=== PATIENT | female | born 1990 | race Caucasian/White ===

== ENCOUNTER 2018-03-03 09:05 | Outpatient (CLI) | payer MEDICAID, SELFPAY ==
--- NOTE | 2018-03-03 09:16 | DI.RAD_ITS ---
SYMPTOMS/DIAGNOSIS: BACK PAIN, M54.9, SPINAL STENOSIS LUMBAR, M48.06 LUMBAR SPINE: AP, lateral and bilateral oblique views were obtained. There is a mild curvature of the spine. This may be positional. No spondylolysis or spondylolisthesis is seen. No acute fractures or subluxations are present. Small osteophytes are seen at the endplates of the lower lumbar spine. There is a vacuum disc at L 5 - S 1. The bones appear normally mineralized. Incidental note is made of an intrauterine device in the pelvis. IMPRESSION: Mild degenerative changes in the lumbar spine.
== END 2018-03-03 09:25 ==
PROVIDERS: PCP Family Medicine; Visit Provider Family Medicine
DX: M54.9 Dorsalgia, unspecified (principal); M48.061 Spinal stenosis, lumbar region without neurogenic claudication; M47.817 Spondylosis without myelopathy or radiculopathy, lumbosacral region; Z97.5 Presence of (intrauterine) contraceptive device
CPT/HCPCS: 72110

== ENCOUNTER 2019-11-26 04:02 | Outpatient (CLI) | payer MEDICAID, SELFPAY | END 2019-11-26 04:22 | PROVIDERS: PCP Family Medicine; Visit Provider Family Medicine | DX: Z53.8 Procedure and treatment not carried out for other reasons (principal) ==

== ENCOUNTER 2019-12-08 08:08 | Outpatient (CLI) | payer MEDICAID, SELFPAY | END 2019-12-08 08:28 | PROVIDERS: PCP Family Medicine; Visit Provider Family Medicine | DX: R69 Illness, unspecified (principal) ==

== ENCOUNTER 2019-12-22 18:36 | Outpatient (REF) | payer MEDICAID, SELFPAY ==
[2019-12-22 20:28] LABS: Calculated LDL 86 mg/dL (<100); Cholesterol 144 mg/dL (<200); HDL Cholesterol 32 mg/dL (40-60); Hemoglobin A1C 5.3 % (3.8-5.6); TSH (W/Ref FT4) 1.89 uIU/mL (0.36-3.74); Triglyceride 130 mg/dL (<150)
== END 2019-12-22 18:56 ==
LOC: NCHCN 18:36
PROVIDERS: PCP Family Medicine; Visit Provider Family Medicine
DX: F90.9 Attention-deficit hyperactivity disorder, unspecified type (principal); E66.9 Obesity, unspecified; Z83.3 Family history of diabetes mellitus
CPT/HCPCS: 80061; 83036; 84443

== ENCOUNTER 2020-01-29 15:09 | Outpatient (REF) | payer MEDICAID, SELFPAY ==
[2020-02-03 09:46] LABS: Codeine Negative ng/mL (Cutoff: 25); Dihydrocodeine Negative ng/mL (Cutoff: 25); Hydrocodone Negative ng/mL (Cutoff: 25); Hydromorphone Negative ng/mL (Cutoff: 25); Morphine Negative ng/mL (Cutoff: 25); Naloxone Negative ng/mL (Cutoff: 25); Norhydrocodone Negative ng/mL (Cutoff: 25); Noroxycodone Negative ng/mL (Cutoff: 25); Noroxymorphone Negative ng/mL (Cutoff: 25); Opiates Interpretation Positive.
[2020-02-03 12:47] LABS: Amphetamine Negative ng/mL (Cutoff: 25); Amphetamines Interpretation Negative.; MDA (Ecstasy Metabolite) Negative ng/mL (Cutoff: 25); MDMA (Ecstasy) Negative ng/mL (Cutoff: 25); Methamphetamine Negative ng/mL (Cutoff: 25); Phentermine Negative ng/mL (Cutoff: 25); Pseudoephedrine/Ephedrine Negative ng/mL (Cutoff: 25)
== END 2020-01-29 15:29 ==
LOC: NCHCN 15:09
PROVIDERS: PCP Family Medicine; Visit Provider Family Medicine
DX: R82.998 Other abnormal findings in urine (principal)
CPT/HCPCS: 80324; 80361

== ENCOUNTER 2020-02-19 15:17 | Outpatient (REF) | payer MEDICAID, SELFPAY ==
[2020-02-25 10:28] LABS: Amphetamine Negative ng/mL (Cutoff: 25); Amphetamines Interpretation Negative.; MDA (Ecstasy Metabolite) Negative ng/mL (Cutoff: 25); MDMA (Ecstasy) Negative ng/mL (Cutoff: 25); Methamphetamine Negative ng/mL (Cutoff: 25); Phentermine Negative ng/mL (Cutoff: 25); Pseudoephedrine/Ephedrine Negative ng/mL (Cutoff: 25)
[2020-02-25 11:32] LABS: Buprenorphine 9.2 ng/mL; Norbuprenorphine Negative
[2020-02-26 17:31] LABS: EDDP-by GC-MS 290 ng/mL; Methadone Interpretation Positive.; Methadone-by GC-MS 52040 ng/mL
== END 2020-02-19 15:37 ==
LOC: NCHCN 15:17
PROVIDERS: PCP Family Medicine; Visit Provider Family Medicine
DX: R82.998 Other abnormal findings in urine (principal)
CPT/HCPCS: 80307; 80324; 80358

== ENCOUNTER 2020-03-01 16:18 | Outpatient (REF) | payer MEDICAID, SELFPAY ==
[2020-03-01 20:08] LABS: Anion Gap 7.6 mmol/L (3-11); BUN 17 mg/dL (7-18); C-Reactive Protein 0.56 mg/dL (0.0-0.3); CO2 26.4 mmol/L (21.0-32.0); CREATININE 0.87 mg/dL (0.55-1.02); Calcium 8.5 mg/dL (8.5-10.1); Chloride 105 mmol/L (98-107); Glucose 113 mg/dL (74-106); Potassium 3.9 mmol/L (3.5-5.1); Sodium 139 mmol/L (136-145); Uric Acid 4.8 mg/dL (2.6-6.0)
[2020-03-01 20:10] LABS: HCT 43.7 % (36.0-46.0); MCV 90.5 fL (80-95); MPV 10.6 fL (8.0-11.0); Platelet Count 205 10^3/uL (130-400); RBC 4.83 10^6/uL (3.93-5.22); RDW 12.6 % (11.7-14.6); WBC 7.07 10^3/uL (4.4-10.8)
[2020-03-01 21:14] LABS: ESR 15 mm/hr (0-20)
[2020-03-02 17:20] LABS: Rheumatoid Factor <8.6 IU/mL (<12.0)
[2020-03-03 10:19] LABS: Lyme Ab w Rflx to Lyme Confirm Negative (Negative)
[2020-03-04 00:36] LABS: Anaplasma phagocytophilum Negative (Negative); B. miyamotoi PCR Negative (Negative); Babesia divergens/MO-1 Negative (Negative); Babesia duncani Negative (Negative); Babesia microti Negative (Negative); Ehrlichia chaffeensis Negative (Negative); Ehrlichia ewingii/canis Negative (Negative); Ehrlichia muris eauclairensis Negative (Negative)
== END 2020-03-01 16:38 ==
LOC: NCHCN 16:18
PROVIDERS: PCP Family Medicine; Visit Provider Family Medicine
DX: M25.48 Effusion, other site (principal)
CPT/HCPCS: 80048; 85027; 85652; 87798; 84550; 86140; 86431; 86618

== ENCOUNTER 2020-06-30 11:23 | Outpatient (REF) | payer MEDICAID, SELFPAY ==
[2020-07-05 12:38] LABS: Amphetamine Negative ng/mL (Cutoff: 25); Amphetamines Interpretation Positive.; MDA (Ecstasy Metabolite) Negative ng/mL (Cutoff: 25); MDMA (Ecstasy) Negative ng/mL (Cutoff: 25); Methamphetamine 3850 ng/mL (Cutoff: 25); Phentermine Negative ng/mL (Cutoff: 25); Pseudoephedrine/Ephedrine Negative ng/mL (Cutoff: 25)
== END 2020-06-30 11:43 ==
LOC: NCHCN 11:23
PROVIDERS: PCP Family Medicine; Visit Provider Family Medicine
DX: R82.998 Other abnormal findings in urine (principal)
CPT/HCPCS: 80324

== ENCOUNTER 2020-08-02 16:05 | Outpatient (REF) | payer MEDICAID, SELFPAY ==
[2020-08-05 11:21] LABS: Amphetamine Negative ng/mL (Cutoff: 25); Amphetamines Interpretation Negative.; MDA (Ecstasy Metabolite) Negative ng/mL (Cutoff: 25); MDMA (Ecstasy) Negative ng/mL (Cutoff: 25); Methamphetamine Negative ng/mL (Cutoff: 25); Phentermine Negative ng/mL (Cutoff: 25); Pseudoephedrine/Ephedrine Negative ng/mL (Cutoff: 25)
[2020-08-06 05:10] LABS: EDDP-by GC-MS 129 ng/mL; Methadone Interpretation Positive.
[2020-08-07 14:39] LABS: Methylphenidate >2000 ng/mL; Ritalinic Acid 740 ng/mL
== END 2020-08-02 16:06 | disposition home or self-care (01) ==
LOC: NCHCN 16:05
PROVIDERS: PCP Family Medicine; Visit Provider Family Medicine
DX: Z51.81 Encounter for therapeutic drug level monitoring (principal)
CPT/HCPCS: 80324; 80360; 80358

== ENCOUNTER 2021-01-28 09:38 | Emergency (ER) | payer MEDICAID, SELFPAY ==
--- NOTE | 2021-01-28 09:40 | ED.GENADUL_ITS ---
Discharge Plan Disposition Patient Disposition: HOME Condition: Stable Discharge Details Clinical Impression: Cellulitis of left arm Primary Care Provider: Tiffany Houser V ED Provider: Ramona Saab Home Meds and New Rx's Prescriptions: New cephalexin 500 mg tablet 500 mg PO QID Qty: 28 RF: 0 Continued Mirena 1 EACH intrauterine device 1 insert intrauterine DIRECTED RF: 0 acetaminophen [Mapap Extra Strength] 500 MG tablet 1,000 mg PO PRN PRNRF: 0 ibuprofen [Ibuprofen IB] 200 MG tablet 800 mg PO PRN PRNRF: 0 Discharge Instructions Instructions: Cellulitis (ED) Additional Instructions: take antibiotics as prescribed even if you feel better drink 6-8 glasses of water daily to stay well hydrated the area may worsen in the first 1-2 days before improving. if it's not improving after that, you should get re-evaluated. return sooner if unable to keep meds/ fluids down from vomiting, fever not controlled with acetaminophen and or ibuprofen. Referrals: Tiffany Houser MD [Primary Care Provider] - Discharge Data Discharge Date/Time-TO BE ENTERED AT DEPARTURE: 01/28/21 10:41 Medical Decision Making <Ramona Saab NP - Last Filed: 01/28/21 10:11> presents with rash on upper left arm, most consistent with cellulitis, no drainage abscess noted. she has no systemic symptoms of infection. hemodynamically stable, eating and drinking well. states area has increased in size over past 2 days. will treat with keflex, she has no history of MRSA. advised to return sooner for new or worsening symptoms tetanus 07/2011. will update on this visit. area marked. Medical Records Medical records reviewed: Yes I reviewed the patient's medical records. <Quynh Blunt DO - Last Filed: 01/28/21 16:24> Patient not seen or evaluated by me. I was available for consultation in the emergency department if needed. HPI <Ramona Saab NP - Last Filed: 01/28/21 10:11> General Mode of arrival: ambulatory . Date/Time Provider Initiated Documentation: 01/28/21 09:39 . Limitations to Documentation: no limitations . Information obtained by: patient . HPI Narrative: started 2 days ago with left upper extremity redness worsening, no fever or chills. 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 no other symptoms. Related Data Home Medications Medication Instructions Recorded Confirmed Mirena 1 insert INTRAUTERINE DIRECTED 11/18/14 01/28/21 acetaminophen [Mapap Extra 1,000 mg PO PRN PRN 09/13/15 01/28/21 Strength] ibuprofen [Ibuprofen IB] 800 mg PO PRN PRN 01/17/16 01/28/21 cephalexin 500 mg PO QID #28 tab 01/28/21 Previous Rx's Medication Instructions Recorded cephalexin 500 mg PO QID #28 tab 01/28/21 Allergies Allergy/AdvReac Type Severity Reaction Status Date / Time No Known Allergies Allergy Unverified 01/28/21 09:49 General FRANCISCO: 4 Review of Systems <Ramona Saab NP - Last Filed: 01/28/21 10:11> Constitutional Constitutional: Denies fever(s) Integumentary/Breasts Skin/Breast: Denies lesions and Reports rash (upper left arm, posterior) PFSH <Ramona Saab NP - Last Filed: 01/28/21 10:11> Medical History (Updated 01/28/21 @ 10:09 by Ramona Saab NP) Asthma Migraine Surgical History (Updated 04/02/18 @ 14:34 by [facility]) section (04/01/10) failed induction for post dates. No dilation. Velamentouse cord insertion noted on path report. No distress. Male named Alli 7lb 14oz. Family History Father Essential hypertension Diabetes [id number] Ivon's chorea Social History Smoking/Tobacco Use Status: Current every day Tobacco Type: cigarettes Smoking risk assessment performed?: Yes Alcohol Intake: never Drug use: Never Substance use type: does not use Do you feel safe at home: Yes Do you feel safe in your relationship?: Yes Exam <Ramona Saab NP - Last Filed: 01/28/21 10:11> Const General: cooperative, comfortable and no acute distress Orientation: alert, awake and oriented x3 [facility] Head: normal to inspection and normocephalic Mouth: oral mucosae normal Skin Rashes: rashes noted (posterior upper left arm extends distally to forearm but not as erythematou) and other (no obvious abscess or fluctant area, no lesions noted) Neuro General: patient alert, patient awake and patient oriented x3
[2021-01-28 09:44] VITALS: BP 151/84; PULSE 96; TEMP 36.4; O2SAT 99
== END 2021-01-28 10:41 | disposition home or self-care (01) ==
PROVIDERS: Emergency Provider Nurse Practitioner Acute Care; PCP Family Medicine
DX: L03.114 Cellulitis of left upper limb (principal)
CPT/HCPCS: 90471; 99284; 99283

== ENCOUNTER 2021-02-21 05:06 | Outpatient (CLI) | payer MEDICAID, SELFPAY ==
--- NOTE | 2021-02-21 08:15 | RT.EKG_ITS ---
APPROVED REPORT Exam: Resting ECG Reason for Exam: high risk med Patient Location: O HR:62 bpm ECG Measurements Heart Rate 62 AXIS ND 142 P 66 QRSd 85 QRS 36 QT 414 T 44 QTc 422 Conclusion Sinus rhythm...normal P axis, V-rate 60- 99 Normal Electrocardiogram
== END 2021-02-21 05:07 | disposition home or self-care (01) ==
LOC: RT 05:06
PROVIDERS: PCP Family Medicine; Visit Provider Family Medicine
DX: Z79.899 Other long term (current) drug therapy (principal)
CPT/HCPCS: 93005; 93010

== ENCOUNTER 2021-04-18 02:36 | Emergency (ER) | payer MEDICAID, SELFPAY ==
[2021-04-18 02:43] VITALS: BP 157/87; PULSE 128; RESP 24; TEMP 37.4; O2SAT 98
[2021-04-18] MEDS: Normal Saline 1,000 ML 1000 ML IV ×2 (03:00→03:28)
--- NOTE | 2021-04-18 03:01 | ED.GENADUL_ITS ---
Discharge Plan Disposition Patient Disposition: HOME Condition: Improving Discharge Details Clinical Impression: Dehydration, Acute hypokalemia, Polysubstance abuse Primary Care Provider: Tiffany Houser V ED Provider: Eyal Burden Home Meds and New Rx's Prescriptions: Continued Mirena 1 EACH intrauterine device 1 insert intrauterine DIRECTED RF: 0 acetaminophen [Mapap Extra Strength] 500 MG tablet 1,000 mg PO PRN PRNRF: 0 ibuprofen [Ibuprofen IB] 200 MG tablet 800 mg PO PRN PRNRF: 0 gabapentin 300 mg capsule 300 mg PO TID RF: 0 guanfacine 1 mg tablet 1 mg PO QAM RF: 0 methadone 10 mg/mL Concentrate 15 mg PO DAILY RF: 0 Discharge Instructions Instructions: Dehydration (ED), Hypokalemia (ED) Additional Instructions: Your potassium was low today, you were given potassium supplementation in the ER, and you may increase potassium-containing foods in the diet such as strawberries, bananas, leafy greens, tree nuts such as almonds and cashews. Follow-up with the methadone clinic today. Avoid illicit or street drugs. Medical Decision Making 30-year-old female polysubstance user presents with headache and vomiting. She has missed 2 doses of her methadone but has been using some illicitly obtained fentanyl. She has not been injured or fallen. She is not had a febrile illness. She arrives to ER dehydrated, tachycardic, and in some mild discomfort. Differential diagnosis includes migraine headache, polysubstance abuse, dehydration, electrolyte abnormality, withdrawal type symptoms. Patient had IV access established, given fluids, antiemetic, Toradol. Patient's laboratories show a white blood cell count of 2.8, hematocrit 40, platelets 113. Sodium 143, potassium 2.8, chloride 107, bicarb 25, BUN 12, creatinine 1.1. U preg negative. Patient's potassium supplemented in the emergency department. HPI General Mode of arrival: ambulatory . Date/Time Provider Initiated Documentation: 04/18/21 02:37 . Limitations to Documentation: no limitations . Information obtained by: patient and family . History of Present Illness 30 year old F presents to the emergency department with the chief complaint of Headache and vomiting, recent drug use, described as moderate, Quality is described as dull, and is localized to the head. Patient reports no radiation. Patient started experiencing this hour(s) and it has been constant. No relieving factors improve symptom(s), No exacerbating factors reported . Patient notes headaches, loss of appetite, nausea/vomiting and weakness; denies chest pain, shortness of breath and syncope. Patient did receive the following treatments prior to arrival, none Related Data Home Medications Medication Instructions Recorded Confirmed Mirena 1 insert INTRAUTERINE DIRECTED 11/18/14 04/18/21 acetaminophen [Mapap Extra 1,000 mg PO PRN PRN 09/13/15 04/18/21 Strength] ibuprofen [Ibuprofen IB] 800 mg PO PRN PRN 01/17/16 04/18/21 gabapentin 300 mg PO TID 04/18/21 04/18/21 guanfacine 1 mg PO QAM 04/18/21 04/18/21 methadone 15 mg PO DAILY 04/18/21 04/18/21 Allergies Allergy/AdvReac Type Severity Reaction Status Date / Time No Known Allergies Allergy Unverified 04/18/21 02:48 General Stated Complaint: Headache FRANCISCO: 3 Review of Systems Narrative: Has missed 2 days of methadone. Used fentanyl 20 hours ago. No fall or injury. No loss of consciousness. 6 systems reviewed and otherwise negative [facility] Medical History Asthma Drug abuse Heroin abuse Migraine Surgical History (Updated 04/02/18 @ 14:34 by [facility] [place]) section (04/01/10) failed induction for post dates. No dilation. Velamentouse cord insertion noted on path report. No distress. Male infant named Alli 7lb 14oz. Family History Father Essential hypertension Diabetes [id number] Ivon's chorea Social History Smoking/Tobacco Use Status: Current every day Tobacco Type: cigarettes Smoking risk assessment performed?: Yes Alcohol Intake: never Drug use: Daily Substance use type: heroin, painkillers and IV drugs Details: states she used fentanyl 20 hours ago; is trying to get dose adjusted at [facility] Do you feel safe at home: Yes Do you feel safe in your relationship?: Yes Exam Narrative Exam Narrative: GEN: awake, alert, interactive. HEAD: Normocephalic, atraumatic ENT: Mucous membranes dry, oropharynx unremarkable, External ear exam unremarkable EYES: PERRL, EOMI NECK: Full ROM, no LIZANDRO, no menigismus CHEST/RESP: Nontender, clear to auscultation bilateral, no wheeze/rhonchi/rales CARDIOVASCULAR: Regular and tachycardic, no murmur, rub eddie. 2+ Rad pulse bilateral ABDOMEN: Soft, nontender, no mass. +Bowel sounds EXT: Full ROM, no edema, numerous track melendez bilateral upper extremity Neuro: Grossly normal neurologic exam, conversant, interactive. Psych: Speech fluent, thoughts congruent, affect normal Course Vital Signs Vital signs: Vital Signs Temperature 37.4 C 04/18/21 02:43 Pulse 128 H 04/18/21 02:43 Respiratory Rate 24 04/18/21 02:43 Blood Pressure 157/87 H 04/18/21 02:43 Pulse Oximetry 98 04/18/21 02:43 Temperature 37.4 C 04/18/21 02:43 Temperature Source Skin 04/18/21 02:43 Pulse 128 H 04/18/21 02:43 Respiratory Rate 24 04/18/21 02:43 Respiratory Effort 04/18/21 02:48 Blood Pressure 157/87 H 04/18/21 02:43 Pulse Oximetry 98 04/18/21 02:43 Pain Level 9 04/18/21 02:48
[2021-04-18] MEDS: Ondansetron 4 MG/2 ML VIAL IVP (03:27)
[2021-04-18] MEDS: Ketorolac 30 MG/ML VIAL IVP (03:28)
[2021-04-18 03:29] LABS: HCT 40.3 % (36.0-46.0); HGB 13.2 g/dL (11.2-15.7); MCH 27.7 pg (27.0-33.0); MCHC 32.8 % (32.0-36.0); MCV 84.5 fL (80-95); MPV 10.2 fL (8.0-11.0); Platelet Count 113 10^3/uL (130-400); RBC 4.77 10^6/uL (3.93-5.22); RDW-SD 43.3 fL; WBC 2.84 10^3/uL (4.4-10.8)
[2021-04-18 03:55] LABS: BUN 12 mg/dL (7-18); CREATININE 1.1 mg/dL (0.55-1.02); Calcium 8.3 mg/dL (8.5-10.1); Chloride 107 mmol/L (98-107); Estimated GFR 57.56 (mL/min/1.73m2); Glucose 94 mg/dL (74-106); Sodium 143 mmol/L (136-145)
[2021-04-18 03:56] LABS: Potassium 2.8 mmol/L (3.5-5.1)
[2021-04-18] MEDS: POTASSIUM CHLORIDE 20 MEQ/100 ML BAG 40 MEQ IVPB (04:10)
[2021-04-18 05:46] VITALS: PULSE 122; RESP 20; O2SAT 93
[2021-04-18] MEDS: Potassium Chloride Liquid 20 MEQ PKT PO (06:09)
[2021-04-18 08:01] VITALS: BP 121/88; PULSE 122; RESP 20; TEMP 37.3; O2SAT 96
== END 2021-04-18 17:20 | disposition home or self-care (01) ==
PROVIDERS: Emergency Provider Emergency Medicine; PCP Family Medicine
DX: E86.0 Dehydration (principal); E87.6 Hypokalemia; F11.20 Opioid dependence, uncomplicated; R51.9 Headache, unspecified
CPT/HCPCS: 80048; 81025; 85027; 96361; 96365; 96366; 96367; 96375; 99284; J1885; J2405; J3480

== ENCOUNTER → 2021-11-14 01:56 | Outpatient (CLI) | payer MEDICAID, SELFPAY | PROVIDERS: PCP Family Medicine; Visit Provider Family Medicine ==

== ENCOUNTER 2022-05-22 10:10 | Outpatient (CLI) | payer MEDICAID, SELFPAY ==
--- NOTE | 2022-05-22 10:15 | RT.EKG_ITS ---
APPROVED REPORT Exam: Resting ECG Reason for Exam: Review Rn Medication Use Patient Location: O HR:69 bpm ECG Measurements Heart Rate 69 AXIS ND 151 P 49 QRSd 131 QRS 70 QT 403 T 41 QTc 432 Conclusion Sinus rhythm...normal P axis, V-rate 50- 99 Right bundle branch block...QRSd>120, terminal axis(90,270)
== END 2022-05-22 10:11 | disposition home or self-care (01) ==
PROVIDERS: PCP Family Medicine; Visit Provider Family Medicine
DX: Z51.81 Encounter for therapeutic drug level monitoring (principal); R94.31 Abnormal electrocardiogram [ECG] [EKG]; I45.19 Other right bundle-branch block
CPT/HCPCS: 93005; 93010

== ENCOUNTER 2022-09-21 01:03 | Emergency (ER) | payer MEDICAID, SELFPAY ==
[2022-09-21 01:13] VITALS: BP 142/88; PULSE 110; RESP 16; TEMP 36.9; O2SAT 98
--- NOTE | 2022-09-21 01:25 | ED.GENADUL_ITS ---
Discharge Plan Disposition Patient Disposition: Home Discharge Details Clinical Impression: Abscess Primary Care Provider: Tiffany Houser V ED Provider: Royer Peterson Home Meds and New Rx's Prescriptions: New sulfamethoxazole-trimethoprim [Bactrim DS] 800-160 mg tablet 1 tab PO BID Qty: 20 0RF No Action Mirena 1 EACH intrauterine device 1 insert intrauterine DIRECTED Patient Comments: pt states she has had for a year and half 04/20/16 acetaminophen [Mapap Extra Strength] 500 MG tablet 1,000 mg PO PRN PRN ibuprofen [Ibuprofen IB] 200 MG tablet 800 mg PO PRN PRN gabapentin 300 mg capsule 300 mg PO TID guanfacine 1 mg tablet 1 mg PO QAM Patient Comments: TAKE 1 TABLET BY MOUTH AT BEDTIME methadone 10 mg/mL Concentrate 170 mg PO DAILY Discharge Instructions Instructions: Abscess (ED) Additional Instructions: At this time you have small pustular abscesses that are likely secondary to MRSA. Please take the antibiotic as directed. Please avoid scratching and make sure the under aspect of your nails are always clean. Please use antibacterial soap and wash for your extremities. Please avoid any needles or injections. Your prescription has been sent to your pharmacy on file. If you notice any worsening of your symptoms, or any new symptoms such as vomiting, diarrhea, fever, chills, shortness of breath, chest pain, numbness, weakness, or fainting , please return immediately to the emergency department for reevaluation. Please follow up with your primary care provider as soon as possible for reassessment and reevaluation. As always, it was a pleasure participating in your medical care today. Referrals: Tiffany Houser MD [Primary Care Provider] - Medical Decision Making This is a pleasant 32-year-old female with a past medical history of illicit drug use, family history of MRSA, who presents today for skin lesions. Patient states she does use actively, and over the last few days/weeks she has noticed small lesions that have developed on her hands in locations that she has previously used, as well as on her face where she scratches that have started with a small pustule, and scab over. She denies any fever or chills. Both her significant other, and her family member who live at her house have MRSA. She denies any other complaints at this time. She denies any vaginal lesions. She denies any lesions on the palms of her hands or feet. She denies any oral lesions. No other complaints. No other modifying factors. Physical exam demonstrates a well-appearing female with a few small pustular lesions on her hand over the dorsum aspect, and a few scabbed over lesions on her nose. No evidence of significant necrosis. No current clinical evidence of staph scalded skin syndrome, erythema multiforme, erythema migrans, toxic epidermal necrolysis, Britt-Baldev syndrome, Kawasaki-like rash, meningococcemia, pemphigus vulgaris, or necrotizing fasciitis. Symptoms consistent with mild folliculitis versus mild infectious pustular lesions most likely secondary to MRSA. We we will culture these areas, treat empirically with Bactrim, with close follow-up in an outpatient basis. Discussed red flags for which to return. Discussed the importance of antibacterial wash. Discussed the importance of avoidance of itching/scratching. I have extensively reviewed the treatment plan and discharge instructions with the patient. I have addressed all patient concerns at this time. The patient was made aware of what symptoms to monitor for that would warrant a return to the emergency department. Discussed the plan with the patient, they demonstrate verbal understanding and agreement with our assessment and plan at this time. The documentation in this chart was dictated using [employer] dictation software. Please excuse any dictation errors. HPI General Date/Time Provider Initiated Documentation: 09/21/22 01:14 . HPI Narrative: This is a pleasant 32-year-old female with a past medical history of illicit drug use, family history of MRSA, who presents today for skin lesions. Patient states she does use actively, and over the last few days/weeks she has noticed small lesions that have developed on her hands in locations that she has previously used, as well as on her face where she scratches that have started with a small pustule, and scab over. She denies any fever or chills. Both her significant other, and her family member who live at her house have MRSA. She denies any other complaints at this time. She denies any vaginal lesions. She denies any lesions on the palms of her hands or feet. She denies any oral lesions. No other complaints. No other modifying factors. Related Data Home Medications Medication Instructions Recorded Confirmed levonorgestrel 21 mcg/24 hours (8 1 insert intrauterine DIRECTED 11/18/14 09/21/22 yrs) 52 mg intrauterine device (Mirena) acetaminophen 500 mg tablet (Mapap 1,000 mg PO PRN PRN 09/13/15 09/21/22 Extra Strength) ibuprofen 200 mg tablet (Ibuprofen 800 mg PO PRN PRN 01/17/16 09/21/22 IB) gabapentin 300 mg capsule 300 mg PO TID 04/18/21 09/21/22 guanfacine 1 mg tablet 1 mg PO QAM 04/18/21 09/21/22 methadone 10 mg/mL oral concentrate 170 mg PO DAILY 04/18/21 09/21/22 sulfamethoxazole 800 1 tab PO BID #20 tabs 09/21/22 mg-trimethoprim 160 mg tablet (Bactrim DS) Previous Rx's Medication Instructions Recorded sulfamethoxazole 800 1 tab PO BID #20 tabs 09/21/22 mg-trimethoprim 160 mg tablet (Bactrim DS) Allergies Allergy/AdvReac Type Severity Reaction Status Date / Time No Known Allergies Allergy Unverified 09/21/22 01:22 General Stated Complaint: Cellulitis FRANCISCO: 4 Review of Systems All systems reviewed & are unremarkable except as noted in HPI and below PFSH All Active Problems (Updated 09/21/22 @ 01:31 by Royer Peterson DO) Previous delivery, delivered (Acute) Cellulitis of left arm (Acute) Dehydration (Acute) Acute hypokalemia (Acute) Polysubstance abuse (Acute) Abscess (Acute) Medical History Asthma Drug abuse Heroin abuse Migraine Surgical History section (04/01/10) failed induction for post dates. No dilation. Velamentouse cord insertion not ed on path report. No distress. Male infant named Alli 7lb 14oz. Family History Father Essential hypertension Diabetes Fepmas-sf-nco [place]'s chorea Social History Smoking/Tobacco Use Status: Current every day Tobacco Type: cigarettes Smoking risk assessment performed?: Yes Alcohol Intake: never Drug use: Daily Substance use type: heroin, painkillers and IV drugs Details: states she used fentanyl 20 hours ago; is trying to get dose adjusted at [facility] Do you feel safe at home: Yes Do you feel safe in your relationship?: Yes Exam Narrative Exam Narrative: 1.Const: Well-nourished, Well-developed, appearing stated age 2.Eyes: PERRL, no conjunctival injection, and symmetrical lids. 3.ENT: Atraumatic external nose and ears. Moist MM. Neck: Symmetric, trachea midline, No thyromegaly. 4.CVS: +S1/S2, No murmurs or gallops. Peripheral pulses 2+ and equal in all extremities. Brisk capillary refill in all extremities. 5.RESP: Unlabored respiratory effort. Clear to auscultation bilaterally. No wheezes rales or rhonchi 6.GI: Soft, Nontender/Nondistended, No hepatosplenomegaly. No guarding or rebound. 7.MSK: Normocephalic/Atraumatic, Extremities w/o deformity or ttp No cyanosis or clubbing, Normal movement of all extremities 8.Skin: Warm, Dry. Patient does demonstrate evidence of a few scabbed over lesions on her face, as well as the dorsal aspect of her hands. She also does demonstrate evidence of a few pustular lesions on the dorsum of her hands. No significant redness surrounding it to suggest significant cellulitis. Patient states that she is not currently using the sites to inject, 9.Neuro: skin drier II-XII grossly intact. Sensation grossly intact, no focal neurologic deficits. 10.Psych: (AAO) x3. Appropriate mood and affect Course Vital Signs Vital signs: Vital Signs Temperature 36.9 C 09/21/22 01:13 Pulse 110 H 09/21/22 01:13 Respiratory Rate 16 09/21/22 01:13 Blood Pressure 142/88 H 09/21/22 01:13 Pulse Oximetry 98 09/21/22 01:13 Temperature 36.9 C 09/21/22 01:13 Temperature Source Oral 09/21/22 01:13 Pulse 110 H 09/21/22 01:13 Respiratory Rate 16 09/21/22 01:13 Respiratory Effort Normal 09/21/22 01:13 Blood Pressure 142/88 H 09/21/22 01:13 Pulse Oximetry 98 09/21/22 01:13 Oxygen Delivery Method Room Air 09/21/22 01:13 Oxygen Flow Rate 0 09/21/22 01:13 Pain Level 5 09/21/22 01:13
[2022-09-21] MEDS: Sulfameth/Trimeth DS, 2 TABS/BTL 1 TAB PO (01:33)
== END 2022-09-21 01:36 | disposition home or self-care (01) ==
PROVIDERS: Emergency Provider Student in an Organized Health Care Education/Training Program; PCP Family Medicine
DX: L98.8 Other specified disorders of the skin and subcutaneous tissue (principal); F11.20 Opioid dependence, uncomplicated; F17.210 Nicotine dependence, cigarettes, uncomplicated
CPT/HCPCS: 99283

== ENCOUNTER 2023-01-03 08:27 | Emergency (ER) | payer MEDICAID, SELFPAY ==
[2023-01-03] VITALS (95 sets, daily range): BP systolic 118–159; BP diastolic 66–91; PULSE 63–83; RESP 9–58; TEMP 36.6; O2SAT 97–98
--- OUTSIDE RECORDS SUMMARY | 2023-01-03 08:31 | XMS_ITS | Continuity of Care Document ---
Author Name Unknown Organization [facility] Address Unknown Care Team Providers Care Night Manager Name Role Phone No PCP, No PCP Primary Care Physician Unavailab le Encounter Date(s): 09/29/21 - 09/29/21 [facility] [address], [place] [address] Encounter Diagnosis Compression fracture of L1 vertebra(Discharge Diagnosis) - 09/29/21 Discharge Disposition: Home or Self Care Attending Physician: Jose Medellin MD Admitting Physician: Jose Medellin MD Allergies, Adverse Reactions, Alerts No Known Medication Allergies Assessment and Plan Diagnostic Tests Pending * Urinalysis Reflex Microscopic, Culture if 09/29/21 Medications ketorolac 10 mg oral tablet 10 mg = 1 tab(s), Oral, q6hr, PRN PRN: for pain, X 5 day(s), # 20 tab(s), 0 Refill(s), Pharmacy: [facility] Pharmacy, 177, cm, 09/29/21 7:32:00 EDT, Height/Length Dosing, 81, kg, 09/29/21 7:32:00 EDT, Weight Dosing Start Date: 09/29/21 Stop Date: 10/04/21 Status: Ordered lidocaine topical 5% transdermal patch 1 patch(es), Topical, Daily, remove patches after 12 hours, # 5 patch(es), 0 Refill(s), Pharmacy: [facility] Pharmacy, 177, cm, Height/Length Dosing, 09/29/21 7:32:00 EDT, 81, kg, 09/29/21 7:32:00 EDT, Weight Dosing Start Date: 09/29/21 Status: Ordered oxyCODONE 5 mg oral tablet 5 mg = 1 tab(s), Oral, q6hr, PRN PRN: for pain, X 3 day(s), # 12 tab(s), 0 Refill(s), Pharmacy: [facility] Pharmacy, 177, cm, 09/29/21 7:32:00 EDT, Height/Length Dosing, 81, kg, 09/29/21 7:32:00 EDT, Weight Dosing Start Date: 09/29/21 Stop Date: 10/02/21 Status: Ordered Mental Status 09/29/21 Orientation Assessment Oriented x 4 Results Laboratory List Name Date .Estimated Glomerular Filtration Rate Auto Differential 09/29/21 CBC Auto Diff reflex Manual Diff 09/29/21 Comprehensive Metabolic Panel 09/29/21 Most recent to oldest [Reference Range]: 1 AGAP 10 *NA* (09/29/21 8:17 AM) A/G Ratio 0.9 *NA* (09/29/21 8:17 AM) BUN/Creat Ratio 17 *NA* (09/29/21 8:17 AM) RBC [4.00-5.20 x10(6)/mcL] 4.69 x10(6)/m cL (09/29/21 8:17 AM) RDW [11.5-14.5 %] 13.2 % (09/29/21 8:17 AM) Sodium Level [136-145 mmol/L] 137 mmol/L (09/29/21 8:17 AM) Total Protein [6.4-8.2 gm/dL] 7.3 gm/dL (09/29/21 8:17 AM) AST [15-37 IU/L] 11 IU/L *LOW* (09/29/21 8:17 AM) Bili Total [0.20-1.00 mg/dL] 0.32 mg/dL (09/29/21 8:17 AM) CO2 [21-32 mmol/L] 26 mmol/L (09/29/21 8:17 AM) Albumin Level [3.4-5.0 gm/dL] 3.5 gm/dL (09/29/21 8:17 AM) Alk Phos [48-129 unit/L] 50 unit/L (09/29/21 8:17 AM) ALT [13-61 IU/L] 19 IU/L (09/29/21 8:17 AM) Hct [36.0-46.0 %] 42.8 % (09/29/21 8:17 AM) Hgb [12.0-15.0 gm/dL] 14.3 gm/dL (09/29/21 8: AM) MCH [26.0-34.0 pg] 30.5 pg (09/29/21 AM) MCHC [31.0-37.0 gm/dL] 33.4 gm/dL (09/29/21 8: AM) MCV [80-100 fL] 91 fL (09/29/21 AM) MPV [9.2-12.7 fL] 9.7 fL (09/29/21 AM) Glucose Level [74-106 mg/dL] 110 mg/dL *HI* (09/29/21 AM) Platelet [150-350 x10(3)/mcL] 277 x10(3) /mcL (09/29/21 AM) Potassium Level [3.5-5.1 mmol/L] 3.6 mmo l/L (09/29/21 AM) WBC [4.5-11.0 x10(3)/mcL] 9.9 x10(3)/mcL (09/29/21: AM) BUN [7-18 mg/dL] 12 mg/dL (09/29/21 AM) Calcium Level [8.5-10.1 mg/dL] 8.8 mg/dL (09/29/21: AM) Chloride [98-107 mmol/L] 105 mmol/L (09/29/21: AM) eGFR AA >60 mL/min/1.73 m2 *NA* (09/29/21: AM) eGFR HAROLDO >60 mL/min/1.73 m2 *NA* (09/29/21: AM) Neutrophil Absolute [1.50-7.80 x10(3)/mc L] 6.57 x10(3)/mcL (09/29/21: AM) Lymphocyte Absolute [1.10-4.80 x10(3)/mc L] 2.29 x10(3)/mcL (09/29/21 8: AM) Monocyte Absolute 0.69 x10(3)/mcL *NA* (4/15/22 8:17 AM) Eosinophil Absolute 0.27 x10(3)/mcL *NA* (09/29/21 8:17 AM) Basophil Absolute 0.05 x10(3)/mcL *NA* (09/29/21 8:17 AM) Imm Gran Absolute 0.02 /mcL *NA* (09/29/21 8:17 AM) NRBC % [0.0-0.2 %] 0.0 % (09/29/21 8:17 AM) Osmol Calculated 274 mOsm/kg *NA* (09/29/21 8:17 AM) Eosinophil Auto [1.0-4.0 %] 2.7 % (09/29/21 8:17 AM) Immature Granulocyte Auto 0 % *NA* (09/29/21 8:17 AM) Lymphocyte Auto [24.0-44.0 %] 23.2 % *LOW* (09/29/21 8:17 AM) Monocyte Auto [2.0-11.0 %] 7.0 % (09/29/21 8:17 AM) Neutrophil Auto [31.0-76.0 %] 66.4 % (09/29/21 8:17 AM) Basophil Auto [0.0-2.0 %] 0.5 % (09/29/21 8:17 AM) Creatinine [0.6-1.3 mg/dL] 0.7 mg/dL (09/29/21 8:17 AM) Radiology Reports * Exam Date Time Procedure Performing Provider Status 09/29/21 9:[address] Spine Lumbar w/o IV [place] [address] PROCEDURE: [place] [address] CLINICAL INDICATION: eval lumbar fracture COMPARISON: None. TECHNIQUE: Standard CT of the Lumbar Spine was performed without contrast. Dose reduction techniques including automated exposure control were utilized. DLP DOSE: 799.79 (mGy.cm) FINDINGS: There is a fracture involving the L1 vertebral body with approximately 6 mm of retropulsion along the superior margin. This does cause moderate central canal narrowing. The central canal measures approximately 8 mm in AP diameter at this level. There is approximately 50% vertebral body height loss. There are a few osseous fragments along the anterior vertebral body at this level. This is age indeterminate. There is vacuum disc phenomenon involving the T12/L1 disc space. The remaining disc spaces are maintained. The remaining sagittal alignment is unremarkable. 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 No large disc protrusion, neuroforaminal narrowing or central canal narrowing in the lower lumbar spine. Mild facet arthropathy in the lower lumbar spine. IMPRESSION: Compression fracture of the L1 vertebral body with approximately 6 mm of retropulsion along the superior margin causing moderate central canal narrowing. No fracture is age indeterminate. Electronically Signed by: Fito Gamboa DO 09/29/2021 9:45 AM Vital Signs Most recent to oldest [Reference Range]: 1 2 Temperature Oral [35.8-37.3 DegC] 36.6 D egC (09/29/21 10:56 AM) 36.7 DegC (09/29/21 7:32 AM) Peripheral Pulse Rate [60-100 bpm] 89 bp m (09/29/21 10:56 AM) 96 bpm (09/29/21 7:32 AM) Respiratory Rate [14-20 br/min] 20 br/mi n (09/29/21 10:56 AM) 22 br/min *HI* (09/29/21 7:32 AM) Blood Pressure 152/104mmHg (09/29/21 10:56 AM) 157/113mmHg (09/29/21 7:32 AM) Social History Social History Type Response Sex Female Hospital Discharge Instructions Patient Education 09/29/2021 11:24:44 Follow Up [facility] (Custom) [facility] Follow up from your Emergency Room Visit Your [facility] Emergency Department provider has recommended follow up at the [facility] ([facility]). This is an important part of the care you have received in the Emergency Department. Please call the [facility] at: [phone] as soon as possible during office hours to schedule an appointment. Our office hours are Saturday ??? Saturday 9:00 am ??? 12:00 pm and 1:00 pm to 4:00 pm. Our office will review your records and determine when you should be seen; many injuries are best followed up on in 5 ??? 10 days rather than immediately. Our office will always choose the most appropriate provider to treat your injury. This may mean that the provider who was rack production worker at the time ofyour Emergency Department visit will not be the one you see. In some cases, it may be better for you to see your primary care provider or a different specialist to receive the best care. Please remember the following: ??? The ideal treatment plan for your injury will be made during your visit with our providers. This plan may be different than the one that was explained to you in the Emergency Room as injuries maychange with time and our providers will have different expertise than your Emergency Department provider. ??? Determination as to whether or not your injury needs to be treated with surgery will also be made at your visit. ??? If you have been given a prescription for pain medication from the Emergency Department and arein need of a refill of the medication before your appointment, please contact the Emergency Department directly at [phone]. ??? Please be advised the [facility] does not refill narcotic prescriptions or prescribe narcotic medication for most injuries. We look forward to caring for you and helping you heal. 09/29/2021 11:24:44 Lumbar Spine Fracture Lumbar Spine Fracture A lumbar spine fracture is a break in one of the bones of the lower back. Lumbar spine fractures can vary from mild to severe. The most severe types are those that: ??? Cause the broken bones to move out of place (unstable). ??? Injure or press on the spinal cord. During recovery, it is normal to have pain and stiffness in the lower back for weeks. What are the causes? This condition may be caused by: ??? A fall. ??? A car accident. ??? A gunshot wound. ??? A hard, direct hit to the back. What increases the risk? You are more likely to develop this condition if: ??? You are in a situation that could result in a fall or other violent injury. ??? You have a condition that causes weakness in the bones (osteoporosis). What are the signs or symptoms? The main symptom of this condition is severe pain in the lower back. If a fracture is complex or severe, there may also be: ??? A misshapen or swollen area on the lower back. ??? Limited ability to move an area of the lower back. ??? Inability to empty the bladder (urinary retention). ??? Loss of bowel or bladder control (incontinence). ??? Loss of strength or sensation in the legs, feet, and toes. ??? Inability to move (paralysis). How is this diagnosed? This condition is diagnosed based on: ??? A physical exam. ??? Symptoms and what happened just before they developed. ??? The results of imaging tests, such as an X-ray, CT scan, or MRI. If your nerves have been damaged, you may also have other tests to find out the extent of the damage. How is this treated? Treatment for this condition depends on how severe the injury is. Most fractures can be treated with: ??? A back brace. ??? Bed rest and activity restrictions. ??? Pain medicine. ??? Physical therapy. Fractures that are complex, involve multiple bones, or make the spine unstable may require surgery.Surgery is done: ??? To remove pressure from the nerves or spinal cord. ??? To stabilize the broken pieces of bone. Follow these instructions at home: Medicines ??? Take zkyn-nfd-grarnny and prescription medicines only as told by your health care provider. ??? Do not drive or use heavy machinery while taking prescription pain medicine. ??? If you are taking prescription pain medicine, take actions to prevent or treat constipation. Your health care provider may recommend that you: ??? Drink enough fluid to keep your urine pale yellow. ??? Eat foods that are high in fiber, such as fresh fruits and vegetables, whole grains, and beans. ??? Limit foods that are high in fat and processed sugars, such as fried or sweet foods. ??? Take an knhu-mot-dbpcmme or prescription medicine for constipation. If you have a brace: ??? Wear the back brace as told by your health care provider. Remove it only as told by your healthcare provider. ??? Keep the brace clean. ??? If the brace is not waterproof: ??? Do not let it get wet. ??? Cover it with a watertight covering when you take a bath or a shower. Activity ??? Stay in bed (on bed rest) only as directed by your health care provider. ??? Do exercises to improve motion and strength in your back (physical therapy), if your health care provider tells you to do so. ??? Return to your normal activities as directed by your health care provider. Ask your health careprovider what activities are safe for you. Managing pain, stiffness, and swelling ??? If directed, put ice on the injured area: ??? If you have a removable brace, remove it as told by your health care provider. ??? Put ice in a plastic bag. ??? Place a towel between your skin and the bag. ??? Leave the ice on for 20 minutes, 2???3 times a day. General instructions ??? Do not use any products that contain nicotine or tobacco, such as cigarettes and e-cigarettes. These can delay healing after injury. If you need help quitting, ask your health care provider. ??? Do not drink alcohol. Alcohol can interfere with your treatment. ??? Keep all follow-up visits as directed by your health care provider. This is important. ??? Failing to follow up as recommended could result in permanent injury, disability, or long-lasting (chronic) pain. Contact a health care provider if: ??? You have a fever. ??? Your pain medicine is not helping. ??? Your pain does not get better over time. ??? You cannot return to your normal activities as planned or expected. Get help right away if: ??? You have difficulty breathing. ??? Your pain is very bad and it suddenly gets worse. ??? You have numbness, tingling, or weakness in any part of your body. ??? You are unable to empty your bladder. ??? You cannot control your bladder or bowels. ??? You are unable to move any body part (paralysis) that is below the level of your injury. ??? You vomit. ??? You have pain in your abdomen. Summary ??? A lumbar spine fracture is a break in one of the bones of the lower back. ??? The main symptom of this condition is severe pain in the lower back. If a fracture is complex, there may also be numbness, tingling, or paralysis in the legs. ??? Treatment depends on how severe the injury is. Most fractures can be treated with a back brace,bed rest and activity restrictions, pain medicine, and physical therapy. ??? Fractures that are complex, involve multiple bones, or make the spine unstable may require surgery. This information is not intended to replace advice given to you by your health care provider. Make sure you discuss any questions you have with your health care provider. Document Revised: 07/19/2018 Document Reviewed: 07/19/2018 [employer] Patient Education ?? 2020 [employer]. 09/29/2021 11:24:44 How to Use a Back Brace How to Use a Back Brace A back brace is a form-fitting device that wraps around your trunk to support your lower back, abdomen, and hips. You may need to wear a back brace to relieve back pain or to correct a medical condition related to the back, such as abnormal curvature of the spine (scoliosis). A back brace can maintain or correct the shape of the spine and prevent a spinal problem from getting worse. A back brace can also take pressure off the layers of tissue (disks) between the bones of the spine (vertebrae). You may need a back brace to keep your back and spine in place while you heal from an injury or recover from surgery. Back braces can be either plastic (rigid brace) or soft elastic (dynamic brace). ??? A rigid brace usually covers both the front and back of the entire upper body. ??? A soft brace may cover only the lower back and abdomen and may fasten with self-adhesive elastic straps. Your health care provider will recommend the proper brace for your needs and medical condition. What are the risks? A back brace may not help if you do not wear it as directed by your health care provider. Be sure to wear the brace exactly as instructed in order to prevent further back problems. ??? Wearing the brace may be uncomfortable at first. You may have trouble sleeping with it on. It may also be hard for you to do certain activities while wearing it. ??? If the back brace is not worn as instructed, it may cause rubbing and pressure on your skin andmay cause sores. How to use a back brace Different types of braces will have different instructions for use. Follow instructions from your health care provider about: ??? How to put on the brace. ??? When and how often to wear the brace. In some cases, braces may need to be worn for long stretches of time. For example, a brace may need to be worn for 16???23 hours a day when used for scoliosis. ??? How to take off the brace. ??? Any safety tips you should follow when wearing the brace. This may include: ??? Move carefully while wearing the brace. The brace restricts your movement and could lead to additional injuries. ??? Use a cane or walker for support if you feel unsteady. ??? Sit in high, firm chairs. It may be difficult to stand up from low, soft chairs. ??? Check the skin around the brace every day. Tell your health care provider about any concerns. How to care for a back brace ??? Do not let the back brace get wet. Typically, you will remove the brace for bathing and then put it back on afterward. ??? If you have a rigid brace, be sure to store it in a safe place when you are not wearing it. This will help to prevent damage. ??? Clean or wash the back brace with mild soap and water as told by your health care provider. Contact a health care provider if: ??? Your brace gets damaged. ??? You have pain or discomfort when wearing the back brace. ??? Your back pain is getting worse or is not improving over time. ??? You notice redness or skin breakdown from wearing the brace. Summary ??? You may need to wear a back brace to relieve back pain or to correct a medical condition related to the back, such as abnormal curvature of the spine (scoliosis). ??? Follow instructions as told by your health care provider about how to use the brace and how to take care of it. ??? A back brace may not help if you do not wear it as directed by your health care provider. Wear the brace exactly as instructed in order to prevent further back problems. ??? Move carefully while wearing the brace. ??? Contact a health care provider if you have pain or discomfort when wearing the back brace or your back pain is getting worse or is not improving over time. This information is not intended to replace advice given to you by your health care provider. Make sure you discuss any questions you have with your health care provider. Document Revised: 04/29/2019 Document Reviewed: 04/29/2019 [employer] Patient Education ?? 2020 [employer] Note * Event Display: CT Spine Lumbar w/o IV Contrast Authored Date: [id number] PROCEDURE: [place] [address] CLINICAL INDICATION: eval lumbar fracture COMPARISON: None. TECHNIQUE: Standard CT of the Lumbar Spine was performed without contrast. Dose reduction techniques including automated exposure control were utilized. DLP DOSE: 799.79 (mGy.cm) FINDINGS: There is a fracture involving the L1 vertebral body with approximately 6 mm of retropulsion along the superior margin. This does cause moderate central canal narrowing. The central canal measures approximately 8 mm in AP diameter at this level. There is approximately 50% vertebral body height loss. There are a few osseous fragments along the anterior vertebral body at this level. This is age indeterminate. There is vacuum disc phenomenon involving the T12/L1 disc space. The remaining disc spaces are maintained. The remaining sagittal alignment is unremarkable. 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 No large disc protrusion, neuroforaminal narrowing or central canal narrowing in the lower lumbar spine. Mild facet arthropathy in the lower lumbar spine. IMPRESSION: Compression fracture of the L1 vertebral body with approximately 6 mm of retropulsion along the superior margin causing moderate central canal narrowing. No fracture is age indeterminate. Electronically Signed by: iFto Gamboa DO 09/29/2021 9:45 AM Care Team Care Team Personnel Name: No PCP No PCP, Med Service: NO LOCAL PCP Member Role: Primary Care Physician
--- NOTE | 2023-01-03 08:45 | DI.MRI_ITS ---
Exam(s) MR LUMBAR SPINE WO/W EXAM: MR LUMBAR SPINE WO/W CLINICAL HISTORY: IV drug user, severe lower back pain TECHNIQUE: Multiplanar multisequence MRI of the Lumbar Spine was performed. CONTRAST MATERIAL: IV Contrast: 20 mL of Dotarem contrast administered. COMPARISON: MR MRI - LUMBAR SPINE WO CONTRAST from 07/05/2010 CR XR lumbar spine complete from 03/03/2018 FINDINGS: Bones: The last intervertebral disc space is designated the L5/S1 level for the numbering purpose of this examination. The vertebral body heights are well maintained. Alignment is satisfactory. The sig nal characteristics are unremarkable no evidence of osteomyelitis.. SI joints and sacrum are unremark able. Cord: The conus tip ends at the L1 level. It is of normal size and signal intensity. T12-L1 through L3-4: No disc herniations or bulges are present. Normal signal in the discs. Normal h eight and hydration. No evident evidence of discitis at these levels. No significant central canal st enosis or neural foraminal narrowing. L4-5: Abnormal high signal enhancement within the disc. The disc is severely narrowed and shows post erior central disc protrusion. There is edema and abnormal enhancement in the soft tissues posterior to the right facet joint which could indicate a septic facet joint. There is marked abnormal epidural enhancement seen extending from L3 through S1, greatest at the L4-5 level. This causes severe centra l canal stenosis in combination with the disc protrusion. There is crowding of the nerve roots. Mild bilateral neural foraminal narrowing. L5-S1: Abnormal loss of disc height, endplate osteophytes and mild broad-based disc bulging. Abnorma l high signal enhancement within the disc consistent with discitis. No significant central canal sten osis. Mild facet degenerative changes. Moderate bilateral neural foraminal narrowing. Soft tissues: The visualized SI joints and sacrum are well maintained. The paraspinal soft tissues ar e unremarkable. IMPRESSION: Epidural abscess seen extending from L3 through S1. This may arise from a right septic facet joint at L4-5. Discitis and degenerative disc changes at L4-5 and L5-S1. Severe central canal stenosis at L4-5 secondary to combination of central disc protrusion and epidura l abscess. DATA REPOSITORY:
--- NOTE | 2023-01-03 08:48 | W.ED.GENAD ---
Discharge Plan Disposition Patient Disposition: Transfer-Acute Inpatient Care Specific Acute Inpt Facility: [facility] Discharge Details Chief Complaint: Nk/Back Pain Clinical Impression: Epidural abscess, Discitis Primary Care Provider: Tiffany Houser V ED Provider: Ignacio Diamond Home Meds and New Rx's Prescriptions: No Action Mirena 1 EACH intrauterine device 1 insert intrauterine DIRECTED Patient Comments: pt states she has had for a year and half 04/20/16 acetaminophen [Mapap Extra Strength] 500 MG tablet 1,000 mg PO PRN PRN ibuprofen [Ibuprofen IB] 200 MG tablet 400 mg PO PRN PRN gabapentin 300 mg capsule 300 mg PO TID methadone 10 mg/mL Concentrate 200 mg PO DAILY Patient Comments: recent dose increase nicotine [Nicoderm CQ] 21 mg/24 hr Patch 24 Hour 1 patch transdermal DAILY nicotine (polacrilex) 4 mg gum 4 mg PO DIRECTED Patient Comments: CHEW 1 GUM BY MOUTH DIRECTED Medical Decision Making 32-year-old female history of active IV drug use, presents with acute onset lower back pain last night lumbar region radiating down right leg, patient appears uncomfortable on arrival, is afebrile nontoxic however does have midline lumbar spinal tenderness; given patient's social history she is high risk for spinal epidural abscess, discitis and systemic infection her presentation presents more classically as sciatica related to discopathy but given her risk factors will need to pursue labs and imaging MRI lumbar spine with contrast. Patient remains neurologically intact. Will provide analgesia, close reassessment 17: 41 evidence of L4-L5 septic facet joint, L4-L5 L5-S1 discitis, epidural abscess from L4-S1 with canal stenosis. Neuro exam remains intact, normal perineal sensation and rectal tone. Blood cultures have been drawn, patient to be started on vancomycin and ceftriaxone, will give her dose of methadone. Have put out stat consultation to [facility] neurosurgical team for potential transfer for surgical intervention. 18: 11 discussed case with neurosurgical team at [facility] who would like her transferred ED to ED, accepting physician Dr. Leo. Patient consenting for transfer. Remains hemodynamically and neurologically stable HPI General Date/Time Provider Initiated Documentation: 01/03/23 08:36. HPI Narrative: 32-year-old female history of IV drug abuse presents with cute onset lower back pain that began last night lower back radiating into her right leg denies bowel or bladder issues denies fevers or chills. Denies injury. Related Data Home Medications Medication Instructions Recorded Confirmed levonorgestrel 21 mcg/24 hours (8 1 insert intrauterine DIRECTED 11/18/14 01/03/23 yrs) 52 mg intrauterine device (Mirena) acetaminophen 500 mg tablet (Mapap 1,000 mg PO PRN PRN 09/13/15 09/21/22 Extra Strength) ibuprofen 200 mg tablet (Ibuprofen 400 mg PO PRN PRN 01/17/16 01/03/23 IB) gabapentin 300 mg capsule 300 mg PO TID 04/18/21 01/03/23 methadone 10 mg/mL oral concentrate 200 mg PO DAILY 04/18/21 01/03/23 nicotine (polacrilex) 4 mg gum 4 mg PO DIRECTED 01/03/23 01/03/23 nicotine 21 mg/24 hr daily 1 patch transdermal DAILY 01/03/23 01/03/23 transdermal patch (Nicoderm CQ) Allergies Allergy/AdvReac Type Severity Reaction Status Date / Time No Known Allergies Allergy Unverified 01/03/23 17:40 General Stated Complaint: Nk/Back Pain FRANCISCO: 3 Review of Systems Narrative: Review of Systems Constitutional: negative Eyes: negative ENT: negative Cardiovascular: negative Respiratory: negative Gastrointestinal: negative : negative Musculoskeletal: Back pain Skin: negative Neurologic: negative Psych: negative PFSH All Active Problems (Updated 01/03/23 @ 18:13 by Ignacio Diamond MD) Previous delivery, delivered (Acute) Cellulitis of left arm (Acute) Dehydration (Acute) Acute hypokalemia (Acute) Polysubstance abuse (Acute) Epidural abscess (Acute) Discitis (Acute) Medical History Asthma Drug abuse Heroin abuse Migraine Surgical History section (04/01/10) failed induction for post dates. No dilation. Velamentouse cord insertion noted on path report. No distress. Male named Alli 7lb 14oz. Family History Father Essential hypertension Diabetes Ojrygl-bg-yup Dandridge's chorea Social History (Reviewed 09/21/22 @ 01:27 by DAVID Lott Smoking/Tobacco Use Status: Current every day Tobacco Type: cigarettes Smoking risk assessment performed?: Yes Alcohol Intake: never Drug use: Daily Substance use type: heroin, painkillers and IV drugs Details: 01/03/23: pt states fentanyl every other day Do you feel safe at home: Yes Do you feel safe in your relationship?: Yes Exam Narrative Exam Narrative: Physical Examination General: alert, awake, cooperative, appears uncomfortable HEENT: normocephalic, atraumatic; PERRL, EOM intact, conjunctiva normal; no nasal discharge; moist mucous membranes, oral and pharyngeal mucosa normal, tolerating secretions Neck: supple, trachea midline; full ROM Chest: normal to inspection Respiratory: normal respiratory effort, speaking in full sentences, clear to auscultation, no wheezing, rales or rhonchi Cardiac: regular rate, regular rhythm, S1S2 intact, no murmurs rubs or gallops GI: abdomen soft, non-tender, non-distended; no palpable mass or hepatosplenomegaly Back: Midline lumbar tenderness on examination Skin: no lesions, rashes or trauma appreciated Neuro: AAOx3, normal speech, moving all extremities; 5 out of 5 strength upper and lower extremities, reproduction of discomfort with right lower extremity straight leg raise Extremities: No signs of trauma Psych: Appropriate mood and affect Course Vital Signs Vital signs: Vital Signs Temperature 36.6 C 01/03/23 08:34 Pulse 76 01/03/23 08:34 Respiratory Rate 14 01/03/23 08:34 Blood Pressure 159/90 H 01/03/23 08:34 Pulse Oximetry 97 01/03/23 08:34 Temperature 36.6 C 01/03/23 08:34 Temperature Source Oral 01/03/23 08:34 Pulse 76 01/03/23 08:34 Respiratory Rate 14 01/03/23 08:34 Blood Pressure 159/90 H 01/03/23 08:34 Pulse Oximetry 97 01/03/23 08:34 Oxygen Delivery Method Room Air 01/03/23 08:34 Oxygen Flow Rate 0 01/03/23 08:34 Pain Level 10 01/03/23 08:34 Lab/Test Results Lab/Test Results: 01/03/23 08:45 Blood Blood Culture - Pending 01/03/23 08:45 Blood Blood Culture - Pending
[2023-01-03] MEDS: fentaNYL 100 MCG/2 ML VIAL 50 MCG IVP ×3 (09:50→16:09)
[2023-01-03] MEDS: Ketorolac 15 MG/ML VIAL IVP (09:53)
[2023-01-03] MEDS: Normal Saline Flush 10 ML SYR ×2 (09:54→13:52)
[2023-01-03 10:11] LABS: Abs Immature Grans 0.07 10^3/uL (0.0-0.06); Absolute Basophil Count 0.02 10^3/uL (0.0-0.2); Absolute Eosinophil Count 0.04 10^3/uL (0.0-0.7); Absolute Lymphocyte Count 0.55 10^3/uL (1.2-3.4); Absolute Monocyte Count 0.51 10^3/uL (0.1-0.8); Absolute Neutrophil Count 7.92 10^3/uL (1.2-6.7); Basophils % 0.2; Eosinophils % 0.4; HCT 37.9 % (36.0-46.0); HGB 12.5 g/dL (11.2-15.7); Immature Grans % 0.8; MCV 85 fL (80-95); MPV 9.7 fL (8.0-11.0); Monocytes % 5.6; Platelet Count 153 10^3/uL (130-400); RBC 4.46 10^6/uL (3.93-5.22); RDW 14.5 % (11.7-14.6); RDW-SD 44.7 fL; WBC 9.11 10^3/uL (4.4-10.8)
--- NOTE | 2023-01-03 10:32 | NUR.NOTE ---
Nursing Note: Report received from Soledad COLLAZO at 1015; software writer assumed care of patient at that time.
[2023-01-03 10:34] LABS: ALT 20 U/L (14-59); AST 14 U/L (15-37); Alkaline Phosphatase 62 U/L (46-116); Anion Gap 7.5 mmol/L (3-11); BUN 12 mg/dL (7-18); Bilirubin, Total 0.4 mg/dL (0.2-1.0); CO2 26.5 mmol/L (21.0-32.0); CREATININE 0.8 mg/dL (0.55-1.02); Calcium 8.5 mg/dL (8.5-10.1); Chloride 104 mmol/L (98-107); Estimated GFR 99.09 (mL/min/1.73m2); Glucose 131 mg/dL (74-106); Potassium 3.5 mmol/L (3.5-5.1); Sodium 138 mmol/L (136-145)
--- NOTE | 2023-01-03 13:22 | NUR.NOTE ---
Nursing Note: To MRI via wheelchair at this time
[2023-01-03] MEDS: Gadoterate meglumine 20 ML SYRINGE IVP (13:52)
--- NOTE | 2023-01-03 15:37 | NUR.NOTE ---
Nursing Note: back to MRI at 1530, new IV placed by Dr Diamond
--- NOTE | 2023-01-03 16:13 | NUR.NOTE ---
Nursing Note: Pulled fentanyl for IV administration per Dr Diamond order; medication vial defective, unable to appropriately draw up medication. Wasted entire 100mcg with Dimple Burden RN; pulled 2nd vial for administration. IV fentanyl 50mcg given to patient at this time.
--- NOTE | 2023-01-03 17:09 | DI.VRAD_ITS ---
Addendum created by Jose Ahuja MD on 01/03/2023 5:13:42 PM EDT: THIS REPORT CONTAINS FINDINGS THAT MAY BE CRITICAL TO PATIENT CARE. The findings were verbally communicated via telephone conference with Ignacio Diamond at 5:13 PM EDT on 01/03/2023. The findings were acknowledged and understood. Initial report created on 01/03/2023 5:08:28 PM EDT: PROCEDURE INFORMATION: Exam: MR Lumbar Spine Without and With Contrast Exam date and time: 01/03/2023 1:32 PM Age: 32 years old Clinical indication: Other: Iv drug user, severe lower back pain TECHNIQUE: Imaging protocol: Magnetic resonance imaging of the lumbar spine without and with contrast. Contrast material: DOTEREM; Contrast volume: 20 ml; Contrast route: INTRAVENOUS (IV); COMPARISON: CR XR lumbar spine complete 03/03/2018 9:16 AM FINDINGS: Right L4-L5 septic facet joint with enhancement extending into the adjacent posterior paravertebral musculature discogenic edema and enhancement at L4-L5 and L5-S1. No endplate marrow edema or enhancement at L4 through S1. Diffuse circumferential epidural abscess from L3 through S1, thickest at the L4-L5 level contributing to severe canal stenosis with crowding of the cauda equina. Lumbar vertebral body heights are maintained. No cord compression. No abnormal cord signal. Conus medullaris terminates at the L1 level. L1-L2: No significant canal or foraminal narrowing. L2-L3: No significant canal or foraminal narrowing. L3-L4: Combination of epidural abscess, broad-based disc bulge, and facet hypertrophy cause mild to moderate canal narrowing. Mild bilateral foraminal narrowing. L4-L5: Combination of epidural abscess, broad-based disc bulge, and facet hypertrophy cause severe canal narrowing with crowding of the cauda equina. [id number] bilateral foraminal narrowing. L5-S1: Combination of epidural abscess, broad-based disc bulge, and facet hypertrophy cause mild canal narrowing. Moderate bilateral foraminal narrowing. IMPRESSION: Right L4-L5 septic facet joint, L4-L5 and L5-S1 discitis, and long segment epidural abscess from L4 through S1 causing severe canal stenosis at the L4-L5 level with crowding of the cauda equina. Recommend neurosurgery consultation. Dictated and Authenticated by: Jose Ahuja MD. Ordering:PLUAN Pierre MD
[2023-01-03 17:42] LABS: Lactate 0.6 mmol/L (0.6-1.4)
[2023-01-03] MEDS: cefTRIAXone 2 GM/50 ML BAG IVPB (17:49)
[2023-01-03] MEDS: Normal Saline 1,000 ML 1000 ML IV (17:50)
--- NOTE | 2023-01-03 18:09 | NUR.NOTE ---
Nursing Note: Awaiting vancomycin and methadone from pharmacy
[2023-01-03] MEDS: Methadone Liquid 10 MG/ML 170 MG PO (18:19)
[2023-01-03] MEDS: VANCOMYCIN 2,000 MG in Normal Saline 500 ML 250 MG IVPB (18:20)
[2023-01-03] MEDS: HYDROmorphone 2 MG/ML SYR 1 MG IVP (20:28)
--- NOTE | 2023-01-03 20:34 | NUR.NOTE ---
Nursing Note: Left with Calex at 2030.
--- NOTE | 2023-01-05 14:15 | W.EDPROG ---
Date of service: 01/05/23 Time of Service: 14:15 Medical Decision Making Patient had positive blood culture showing MRSA bacteremia. She was transferred to [facility] 2 days ago. I have asked health natural gas treating unit operator Angle to fax results to [facility]. Discharge Plan Disposition Patient Disposition: Transfer-Acute Inpatient Care Specific Acute Inpt Facility: [facility] Discharge Details Clinical Impression: Epidural abscess, Discitis Primary Care Provider: Tiffany Houser V ED Provider: Ignacio Diamond Home Meds and New Rx's Prescriptions: No Action Mirena 1 EACH intrauterine device 1 insert intrauterine DIRECTED Patient Comments: pt states she has had for a year and half 04/20/16 acetaminophen [Mapap Extra Strength] 500 MG tablet 1,000 mg PO PRN PRN ibuprofen [Ibuprofen IB] 200 MG tablet 400 mg PO PRN PRN gabapentin 300 mg capsule 300 mg PO TID methadone 10 mg/mL Concentrate 200 mg PO DAILY Patient Comments: recent dose increase nicotine [Nicoderm CQ] 21 mg/24 hr Patch 24 Hour 1 patch transdermal DAILY nicotine (polacrilex) 4 mg gum 4 mg PO DIRECTED Patient Comments: CHEW 1 GUM BY MOUTH DIRECTED Discharge Data Discharge Date/Time-TO BE ENTERED AT DEPARTURE: 01/03/23 20:31
--- NOTE | 2023-01-05 14:28 | NUR.NOTE ---
Addendum entered by Angle Rowe 01/05/23 14:29: Fax # [facility] [phone] Original Note: Nursing Note: Preliminary blood culture results faxed to [facility] Bed A. Dr. Jane ritchie.
== END 2023-01-03 20:31 | disposition short-term general hospital (02) ==
PROVIDERS: Emergency Provider Emergency Medicine; PCP Family Medicine
DX: G06.2 Extradural and subdural abscess, unspecified (principal); M46.46 Discitis, unspecified, lumbar region; M47.817 Spondylosis without myelopathy or radiculopathy, lumbosacral region; M48.061 Spinal stenosis, lumbar region without neurogenic claudication; F17.210 Nicotine dependence, cigarettes, uncomplicated
CPT/HCPCS: 36415; 72158; 80053; 87040; 87077; 96365; 96366; 96367; 96375; 99285; 83605; 85025; 87186; J1170; J1885; J3010

== ENCOUNTER 2023-02-11 02:02 | Outpatient (RCR) | payer MEDICAID, SELFPAY ==
[2023-01-21] MEDS: Normal Saline Flush 10 ML SYR IVP (13:40)
[2023-01-21 13:54] LABS: Abs Immature Grans 0.02 10^3/uL (0.0-0.06); Absolute Basophil Count 0.03 10^3/uL (0.0-0.2); Absolute Eosinophil Count 0.25 10^3/uL (0.0-0.7); Absolute Monocyte Count 0.35 10^3/uL (0.1-0.8); Absolute Neutrophil Count 3.46 10^3/uL (1.2-6.7); Basophils % 0.6; Eosinophils % 4.7; HCT 37.1 % (36.0-46.0); HGB 11.7 g/dL (11.2-15.7); Immature Grans % 0.4; Lymphocytes % 22.6; MCH 26.8 pg (27.0-33.0); MCHC 31.5 % (32.0-36.0); MCV 85 fL (80-95); MPV 9.1 fL (8.0-11.0); Monocytes % 6.6; Neutrophils % 65.1; Platelet Count 348 10^3/uL (130-400); RBC 4.37 10^6/uL (3.93-5.22); RDW 13.8 % (11.7-14.6); RDW-SD 43.1 fL; WBC 5.31 10^3/uL (4.4-10.8)
[2023-01-21 14:09] LABS: ALT 39 U/L (14-59); AST 18 U/L (15-37); Albumin 3.1 g/dL (3.4-5.0); Alkaline Phosphatase 105 U/L (46-116); Anion Gap 6.4 mmol/L (3-11); BUN 19 mg/dL (7-18); Bilirubin, Total 0.2 mg/dL (0.2-1.0); C-Reactive Protein 6.24 mg/dL (0.0-0.3); CO2 30.6 mmol/L (21.0-32.0); CREATININE 0.9 mg/dL (0.55-1.02); Calcium 8.9 mg/dL (8.5-10.1); Chloride 103 mmol/L (98-107); Creatine Kinase 48 U/L (26-192); Estimated GFR 86.03 (mL/min/1.73m2); Glucose 115 mg/dL (74-106); Potassium 3.6 mmol/L (3.5-5.1); Sodium 140 mmol/L (136-145); Total Protein 7.5 g/dL (6.4-8.2)
[2023-01-28 13:16] LABS: Abs Immature Grans 0.02 10^3/uL (0.0-0.06); Absolute Basophil Count 0.02 10^3/uL (0.0-0.2); Absolute Eosinophil Count 0.15 10^3/uL (0.0-0.7); Absolute Lymphocyte Count 1.05 10^3/uL (1.2-3.4); Absolute Monocyte Count 0.45 10^3/uL (0.1-0.8); Absolute Neutrophil Count 1.95 10^3/uL (1.2-6.7); Basophils % 0.5; Eosinophils % 4.1; HCT 36.4 % (36.0-46.0); HGB 11.5 g/dL (11.2-15.7); Immature Grans % 0.5; Lymphocytes % 28.8; MCH 26.3 pg (27.0-33.0); MCHC 31.6 % (32.0-36.0); MCV 83 fL (80-95); MPV 9.5 fL (8.0-11.0); Monocytes % 12.4; Neutrophils % 53.7; Platelet Count 142 10^3/uL (130-400); RBC 4.38 10^6/uL (3.93-5.22); RDW 13.9 % (11.7-14.6); RDW-SD 42.1 fL; WBC 3.64 10^3/uL (4.4-10.8)
[2023-01-28] MEDS: Normal Saline Flush 10 ML SYR IVP (13:25)
[2023-01-28 13:29] LABS: ALT 27 U/L (14-59); AST 14 U/L (15-37); Albumin 2.8 g/dL (3.4-5.0); Alkaline Phosphatase 94 U/L (46-116); Anion Gap 7.1 mmol/L (3-11); BUN 7 mg/dL (7-18); Bilirubin, Total 0.3 mg/dL (0.2-1.0); C-Reactive Protein 10.01 mg/dL (0.0-0.3); CO2 28.9 mmol/L (21.0-32.0); CREATININE 0.9 mg/dL (0.55-1.02); Calcium 8.9 mg/dL (8.5-10.1); Chloride 104 mmol/L (98-107); Creatine Kinase 26 U/L (26-192); Estimated GFR 86.03 (mL/min/1.73m2); Glucose 111 mg/dL (74-106); Potassium 4.1 mmol/L (3.5-5.1); Sodium 140 mmol/L (136-145)
[2023-02-04] MEDS: Normal Saline Flush 10 ML SYR IVP (13:11)
[2023-02-04 13:22] LABS: Abs Immature Grans 0.04 10^3/uL (0.0-0.06); Absolute Basophil Count 0.01 10^3/uL (0.0-0.2); Absolute Eosinophil Count 0.19 10^3/uL (0.0-0.7); Absolute Lymphocyte Count 1.05 10^3/uL (1.2-3.4); Absolute Monocyte Count 0.14 10^3/uL (0.1-0.8); Absolute Neutrophil Count 5.84 10^3/uL (1.2-6.7); Basophils % 0.1; Eosinophils % 2.6; HCT 35.9 % (36.0-46.0); HGB 11.6 g/dL (11.2-15.7); Immature Grans % 0.6; Lymphocytes % 14.4; MCH 26.6 pg (27.0-33.0); MCHC 32.3 % (32.0-36.0); MCV 82 fL (80-95); MPV 9.3 fL (8.0-11.0); Monocytes % 1.9; Neutrophils % 80.4; Platelet Count 166 10^3/uL (130-400); RBC 4.36 10^6/uL (3.93-5.22); RDW 13.6 % (11.7-14.6); RDW-SD 40.6 fL; WBC 7.27 10^3/uL (4.4-10.8)
[2023-02-04 13:40] LABS: ALT 19 U/L (14-59); AST 12 U/L (15-37); Albumin 2.8 g/dL (3.4-5.0); Alkaline Phosphatase 101 U/L (46-116); Anion Gap 8.8 mmol/L (3-11); BUN 9 mg/dL (7-18); Bilirubin, Total 0.2 mg/dL (0.2-1.0); C-Reactive Protein 5.09 mg/dL (0.0-0.3); CO2 26.2 mmol/L (21.0-32.0); Chloride 104 mmol/L (98-107); Creatine Kinase 25 U/L (26-192); Estimated GFR 75.81 (mL/min/1.73m2); Glucose 88 mg/dL (74-106); Potassium 3.8 mmol/L (3.5-5.1); Sodium 139 mmol/L (136-145); Total Protein 6.9 g/dL (6.4-8.2)
== END 2023-02-14 23:59 | disposition home or self-care (01) ==
LOC: INF 02:02
PROVIDERS: PCP Family Medicine; Visit Provider Internal Medicine Infectious Disease
DX: M86.9 Osteomyelitis, unspecified (principal)
CPT/HCPCS: 36592; 80053; 82550; 99211; 85025; 86140

== ENCOUNTER 2023-03-11 01:53 | Outpatient (RCR) | payer MEDICAID, SELFPAY ==
[2023-02-21] MEDS: Normal Saline Flush 10 ML SYR IVP (13:28)
[2023-02-21 13:49] LABS: Abs Immature Grans 0.03 10^3/uL (0.0-0.06); Absolute Basophil Count 0.02 10^3/uL (0.0-0.2); Absolute Eosinophil Count 0.19 10^3/uL (0.0-0.7); Absolute Lymphocyte Count 1.48 10^3/uL (1.2-3.4); Absolute Monocyte Count 0.56 10^3/uL (0.1-0.8); Absolute Neutrophil Count 2.83 10^3/uL (1.2-6.7); Basophils % 0.4; Eosinophils % 3.7; HCT 36.8 % (36.0-46.0); HGB 11.4 g/dL (11.2-15.7); Immature Grans % 0.6; MCH 25.1 pg (27.0-33.0); MCV 81 fL (80-95); Neutrophils % 55.3; Platelet Count 227 10^3/uL (130-400); RBC 4.54 10^6/uL (3.93-5.22); RDW 14.5 % (11.7-14.6); RDW-SD 42.5 fL; WBC 5.11 10^3/uL (4.4-10.8)
[2023-02-21 14:04] LABS: ALT 17 U/L (14-59); AST 18 U/L (15-37); Alkaline Phosphatase 87 U/L (46-116); Anion Gap 9.2 mmol/L (3-11); BUN 16 mg/dL (7-18); Bilirubin, Total 0.2 mg/dL (0.2-1.0); C-Reactive Protein 12.79 mg/dL (0.0-0.3); CO2 28.8 mmol/L (21.0-32.0); CREATININE 1.1 mg/dL (0.55-1.02); Chloride 102 mmol/L (98-107); Creatine Kinase 44 U/L (26-192); Estimated GFR 67.62 (mL/min/1.73m2); Glucose 88 mg/dL (74-106); Potassium 3.7 mmol/L (3.5-5.1); Sodium 140 mmol/L (136-145); Total Protein 7.6 g/dL (6.4-8.2)
[2023-02-27 14:47] LABS: Abs Immature Grans 0.01 10^3/uL (0.0-0.06); Absolute Basophil Count 0.01 10^3/uL (0.0-0.2); Absolute Eosinophil Count 0.09 10^3/uL (0.0-0.7); Absolute Lymphocyte Count 0.78 10^3/uL (1.2-3.4); Absolute Neutrophil Count 4.65 10^3/uL (1.2-6.7); Basophils % 0.2; Eosinophils % 1.5; HCT 35.2 % (36.0-46.0); HGB 10.9 g/dL (11.2-15.7); Immature Grans % 0.2; Lymphocytes % 13.1; MCH 24.7 pg (27.0-33.0); MCV 80 fL (80-95); MPV 9.8 fL (8.0-11.0); Monocytes % 6.7; Neutrophils % 78.3; Platelet Count 178 10^3/uL (130-400); RBC 4.41 10^6/uL (3.93-5.22); RDW 14.7 % (11.7-14.6); WBC 5.94 10^3/uL (4.4-10.8)
[2023-02-27] MEDS: Normal Saline Flush 10 ML SYR IVP (14:47)
[2023-02-27 15:01] LABS: ALT 14 U/L (14-59); AST 15 U/L (15-37); Albumin 2.7 g/dL (3.4-5.0); Alkaline Phosphatase 69 U/L (46-116); Anion Gap 6.4 mmol/L (3-11); BUN 11 mg/dL (7-18); Bilirubin, Total 0.2 mg/dL (0.2-1.0); CO2 28.6 mmol/L (21.0-32.0); CREATININE 1.1 mg/dL (0.55-1.02); Calcium 8.6 mg/dL (8.5-10.1); Chloride 101 mmol/L (98-107); Creatine Kinase 29 U/L (26-192); Estimated GFR 67.62 (mL/min/1.73m2); Glucose 88 mg/dL (74-106); Potassium 3.5 mmol/L (3.5-5.1); Sodium 136 mmol/L (136-145)
[2023-03-07] MEDS: Normal Saline Flush 10 ML SYR IVP (13:39)
[2023-03-07 13:58] LABS: Abs Immature Grans 0.03 10^3/uL (0.0-0.06); Absolute Basophil Count 0.02 10^3/uL (0.0-0.2); Absolute Eosinophil Count 0.05 10^3/uL (0.0-0.7); Absolute Lymphocyte Count 0.88 10^3/uL (1.2-3.4); Absolute Monocyte Count 0.38 10^3/uL (0.1-0.8); Absolute Neutrophil Count 5.24 10^3/uL (1.2-6.7); Basophils % 0.3; Eosinophils % 0.8; HCT 35.3 % (36.0-46.0); HGB 11.1 g/dL (11.2-15.7); Immature Grans % 0.5; Lymphocytes % 13.3; MCH 24.9 pg (27.0-33.0); MCHC 31.4 % (32.0-36.0); MCV 79 fL (80-95); Monocytes % 5.8; Neutrophils % 79.3; Platelet Count 199 10^3/uL (130-400); RBC 4.45 10^6/uL (3.93-5.22); RDW 15.1 % (11.7-14.6); RDW-SD 43.6 fL
[2023-03-07 14:15] LABS: ALT 16 U/L (14-59); AST 15 U/L (15-37); Alkaline Phosphatase 75 U/L (46-116); Anion Gap 10.6 mmol/L (3-11); BUN 12 mg/dL (7-18); Bilirubin, Total 0.3 mg/dL (0.2-1.0); CO2 27.4 mmol/L (21.0-32.0); Calcium 8.9 mg/dL (8.5-10.1); Chloride 100 mmol/L (98-107); Estimated GFR 75.81 (mL/min/1.73m2); Glucose 92 mg/dL (74-106); Potassium 3.7 mmol/L (3.5-5.1); Sodium 138 mmol/L (136-145); Total Protein 7.3 g/dL (6.4-8.2)
[2023-03-07 14:41] LABS: Creatine Kinase 63 U/L (26-192)
[2023-03-11] MEDS: Normal Saline Flush 10 ML SYR IVP (14:19)
[2023-03-11 15:45] LABS: Abs Immature Grans 0.05 10^3/uL (0.0-0.06); Absolute Basophil Count 0.04 10^3/uL (0.0-0.2); Absolute Eosinophil Count 0.23 10^3/uL (0.0-0.7); Absolute Lymphocyte Count 1.54 10^3/uL (1.2-3.4); Absolute Monocyte Count 0.51 10^3/uL (0.1-0.8); Absolute Neutrophil Count 2.73 10^3/uL (1.2-6.7); Basophils % 0.8; Eosinophils % 4.5; HCT 37.3 % (36.0-46.0); HGB 11.3 g/dL (11.2-15.7); Lymphocytes % 30.2; MCH 24.2 pg (27.0-33.0); MCHC 30.3 % (32.0-36.0); MCV 80 fL (80-95); MPV 10.5 fL (8.0-11.0); Neutrophils % 53.5; Platelet Count 221 10^3/uL (130-400); RBC 4.67 10^6/uL (3.93-5.22); RDW 15.2 % (11.7-14.6)
[2023-03-11 15:57] LABS: ALT 14 U/L (14-59); AST 7 U/L (15-37); Albumin 2.8 g/dL (3.4-5.0); Alkaline Phosphatase 65 U/L (46-116); Anion Gap 8.1 mmol/L (3-11); BUN 9 mg/dL (7-18); Bilirubin, Total 0.1 mg/dL (0.2-1.0); C-Reactive Protein 6.21 mg/dL (0.0-0.3); CO2 26.9 mmol/L (21.0-32.0); CREATININE 0.9 mg/dL (0.55-1.02); Calcium 8.6 mg/dL (8.5-10.1); Chloride 104 mmol/L (98-107); Creatine Kinase 28 U/L (26-192); Estimated GFR 86.03 (mL/min/1.73m2); Glucose 107 mg/dL (74-106); Potassium 3.8 mmol/L (3.5-5.1); Sodium 139 mmol/L (136-145); Total Protein 7.1 g/dL (6.4-8.2)
== END 2023-03-16 23:59 | disposition home or self-care (01) ==
LOC: INF 01:53
PROVIDERS: Student in an Organized Health Care Education/Training Program; PCP Family Medicine; Visit Provider Internal Medicine Infectious Disease
DX: G06.2 Extradural and subdural abscess, unspecified (principal); R78.81 Bacteremia; B95.62 Methicillin resistant Staphylococcus aureus infection as the cause of diseases classified elsewhere; M00.061 Staphylococcal arthritis, right knee
CPT/HCPCS: 36592; 80053; 82550; 85025; 86140

== ENCOUNTER 2023-04-01 13:00 | Outpatient (RCR) | payer MEDICAID, SELFPAY ==
[2023-03-18] MEDS: Normal Saline Flush 10 ML SYR IVP (13:40)
[2023-03-18 13:49] LABS: Abs Immature Grans 0.02 10^3/uL (0.0-0.06); Absolute Basophil Count 0.01 10^3/uL (0.0-0.2); Absolute Eosinophil Count 0.12 10^3/uL (0.0-0.7); Absolute Lymphocyte Count 0.86 10^3/uL (1.2-3.4); Absolute Monocyte Count 0.25 10^3/uL (0.1-0.8); Absolute Neutrophil Count 3.45 10^3/uL (1.2-6.7); Basophils % 0.2; Eosinophils % 2.5; HCT 34.4 % (36.0-46.0); HGB 10.6 g/dL (11.2-15.7); Immature Grans % 0.4; Lymphocytes % 18.3; MCH 24.4 pg (27.0-33.0); MCHC 30.8 % (32.0-36.0); MCV 79 fL (80-95); MPV 9.8 fL (8.0-11.0); Monocytes % 5.3; Neutrophils % 73.3; Platelet Count 188 10^3/uL (130-400); RBC 4.34 10^6/uL (3.93-5.22); RDW 15.1 % (11.7-14.6); RDW-SD 43.6 fL; WBC 4.71 10^3/uL (4.4-10.8)
[2023-03-18 14:23] LABS: ALT 9 U/L (14-59); AST 12 U/L (15-37); Albumin 2.9 g/dL (3.4-5.0); Alkaline Phosphatase 71 U/L (46-116); Anion Gap 9.5 mmol/L (3-11); BUN 9 mg/dL (7-18); Bilirubin, Total 0.2 mg/dL (0.2-1.0); CO2 26.5 mmol/L (21.0-32.0); CREATININE 1.1 mg/dL (0.55-1.02); Calcium 8.8 mg/dL (8.5-10.1); Chloride 103 mmol/L (98-107); Creatine Kinase 36 U/L (26-192); Estimated GFR 67.62 (mL/min/1.73m2); Glucose 128 mg/dL (74-106); Potassium 3.5 mmol/L (3.5-5.1); Sodium 139 mmol/L (136-145); Total Protein 7.1 g/dL (6.4-8.2)
[2023-03-25] MEDS: Normal Saline Flush 10 ML SYR IVP (13:53)
[2023-03-25 14:26] LABS: Abs Immature Grans 0.04 10^3/uL (0.0-0.06); Absolute Basophil Count 0.03 10^3/uL (0.0-0.2); Absolute Lymphocyte Count 1.38 10^3/uL (1.2-3.4); Absolute Monocyte Count 0.46 10^3/uL (0.1-0.8); Absolute Neutrophil Count 2.76 10^3/uL (1.2-6.7); Basophils % 0.6; Eosinophils % 4.1; HCT 35.6 % (36.0-46.0); HGB 10.8 g/dL (11.2-15.7); Immature Grans % 0.8; Lymphocytes % 28.3; MCH 23.7 pg (27.0-33.0); MCHC 30.3 % (32.0-36.0); MCV 78 fL (80-95); MPV 10.3 fL (8.0-11.0); Monocytes % 9.4; Neutrophils % 56.8; Platelet Count 225 10^3/uL (130-400); RBC 4.55 10^6/uL (3.93-5.22); RDW 15.6 % (11.7-14.6); RDW-SD 44.5 fL; WBC 4.87 10^3/uL (4.4-10.8)
[2023-03-25 14:41] LABS: ALT 18 U/L (14-59); AST 20 U/L (15-37); Albumin 3.1 g/dL (3.4-5.0); Alkaline Phosphatase 86 U/L (46-116); Anion Gap 7.2 mmol/L (3-11); BUN 15 mg/dL (7-18); Bilirubin, Total 0.2 mg/dL (0.2-1.0); C-Reactive Protein 10.35 mg/dL (0.0-0.3); CO2 27.8 mmol/L (21.0-32.0); CREATININE 0.9 mg/dL (0.55-1.02); Calcium 9.2 mg/dL (8.5-10.1); Chloride 102 mmol/L (98-107); Creatine Kinase 231 U/L (26-192); Estimated GFR 86.03 (mL/min/1.73m2); Glucose 88 mg/dL (74-106); Potassium 3.9 mmol/L (3.5-5.1); Sodium 137 mmol/L (136-145); Total Protein 7.8 g/dL (6.4-8.2)
[2023-04-01 14:04] LABS: Abs Immature Grans 0.02 10^3/uL (0.0-0.06); Absolute Basophil Count 0.02 10^3/uL (0.0-0.2); Absolute Eosinophil Count 0.23 10^3/uL (0.0-0.7); Absolute Lymphocyte Count 1.16 10^3/uL (1.2-3.4); Absolute Monocyte Count 0.32 10^3/uL (0.1-0.8); Absolute Neutrophil Count 3.95 10^3/uL (1.2-6.7); Basophils % 0.4; HCT 37.1 % (36.0-46.0); HGB 11.2 g/dL (11.2-15.7); Immature Grans % 0.4; Lymphocytes % 20.4; MCH 23.2 pg (27.0-33.0); MCHC 30.2 % (32.0-36.0); MCV 77 fL (80-95); MPV 9.6 fL (8.0-11.0); Monocytes % 5.6; Neutrophils % 69.2; Platelet Count 222 10^3/uL (130-400); RBC 4.82 10^6/uL (3.93-5.22); RDW 15.6 % (11.7-14.6); RDW-SD 43.7 fL
[2023-04-01 14:21] LABS: ALT 12 U/L (14-59); AST 11 U/L (15-37); Albumin 3.1 g/dL (3.4-5.0); Alkaline Phosphatase 77 U/L (46-116); Anion Gap 7.9 mmol/L (3-11); BUN 10 mg/dL (7-18); Bilirubin, Total 0.2 mg/dL (0.2-1.0); C-Reactive Protein 6.88 mg/dL (0.0-0.3); CO2 27.1 mmol/L (21.0-32.0); Calcium 9.2 mg/dL (8.5-10.1); Chloride 102 mmol/L (98-107); Creatine Kinase 72 U/L (26-192); Estimated GFR 75.81 (mL/min/1.73m2); Glucose 89 mg/dL (74-106); Potassium 3.8 mmol/L (3.5-5.1); Sodium 137 mmol/L (136-145); Total Protein 7.7 g/dL (6.4-8.2)
== END 2023-04-16 23:59 | disposition home or self-care (01) ==
LOC: INF 13:00
PROVIDERS: PCP Family Medicine; Visit Provider Internal Medicine Infectious Disease
DX: R78.81 Bacteremia; B95.62 Methicillin resistant Staphylococcus aureus infection as the cause of diseases classified elsewhere; M00.061 Staphylococcal arthritis, right knee
CPT/HCPCS: 36592; 80053; 82550; 85025; 86140

== ENCOUNTER 2024-01-13 01:42 | Emergency (ER) | payer MEDICAID, SELFPAY ==
[2024-01-13 01:59] VITALS: BP 143/86; PULSE 98; RESP 16; TEMP 36.1; O2SAT 96
--- NOTE | 2024-01-13 02:09 | ED.GENADUL_ITS ---
Discharge Plan Disposition Patient Disposition: Home Condition: Good Discharge Details Clinical Impression: Folliculitis, Cellulitis of left leg, Cellulitis of right leg, Edema, peripheral Primary Care Provider: Tiffany Houser V ED Provider: Royer Peterson Home Meds and New Rx's Prescriptions: New clindamycin HCl 150 mg capsule 450 mg PO Q6H 7 Days Qty: 84 0RF furosemide [Lasix] 20 mg tablet 20 mg PO DAILY Qty: 5 0RF No Action Mirena 1 EACH intrauterine device 1 insert intrauterine DIRECTED Patient Comments: pt states she has had for a year and half 04/20/16 acetaminophen [Mapap Extra Strength] 500 MG tablet 1,000 mg PO PRN PRN ibuprofen [Ibuprofen IB] 200 MG tablet 400 mg PO PRN PRN gabapentin 300 mg capsule 300 mg PO TID methadone 10 mg/mL Concentrate 200 mg PO DAILY Patient Comments: recent dose increase nicotine [Nicoderm CQ] 21 mg/24 hr Patch 24 Hour 1 patch transdermal DAILY nicotine (polacrilex) 4 mg gum 4 mg PO DIRECTED Patient Comments: CHEW 1 GUM BY MOUTH DIRECTED Discharge Instructions Instructions: Bacterial folliculitis Additional Instructions: At this time you have a mild infection of the hair follicles and the surrounding skin. Please take the antibiotic clindamycin as directed. Please take this with a probiotic to help prevent any diarrhea. Please take the Lasix for the next few days to help with the extra edema that you have in that area. Please avoid salty foods, and wrap your legs with compression stockings if possible. If you notice any worsening of your symptoms, or any new symptoms such as vomiting, diarrhea, fever, chills, shortness of breath, chest pain, numbness, weakness, or fainting , please return immediately to the emergency department for reevaluation. Please follow up with your primary care provider as soon as possible for reassessment and reevaluation. As always, it was a pleasure participating in your medical care today. Referrals: Tiffany Houser MD [Primary Care Provider] - [facility] General Date/Time Provider Initiated Documentation: 01/13/24 01:51 . HPI Narrative: 33-year-old female with a past medical history of polysubstance abuse and IV drug use, presents today for swelling and redness in her lower extremit ies. Patient states that for the last 3 weeks she has noticed mild swelling and red lesions on her legs. She has never injected in her shins or calves before, however she has injected around her thighs in the past, the last time she did this was a month or so ago. She does not inject in her feet. She states that the red lesions are mildly tender, no itchiness. She denies any shortness of breath, chest pain, recent fever or chills. She denies any recent long trips surgeries or procedures. No history of blood clots. She does have a history of MRSA, and has received treatment for it. She denies any other complaints at this time. No history of cardiac disease, congestive heart failure or other problems. Related Data Home Medications ?Medication ?Instructions ?Recorded ?Confirmed levonorgestrel 21 mcg/24 hr (up to 1 insert intrauterine DIRECTED 11/18/14 01/13/24 8 years) 52 mg intrauterine device (Mirena) acetaminophen 500 mg tablet (Mapap 1,000 mg PO PRN PRN 09/13/15 01/13/24 Extra Strength) ibuprofen 200 mg tablet (Ibuprofen 400 mg PO PRN PRN 01/17/16 01/13/24 IB) gabapentin 300 mg capsule 300 mg PO TID 04/18/21 01/13/24 methadone 10 mg/mL oral concentrate 200 mg PO DAILY 04/18/21 01/13/24 nicotine (polacrilex) 4 mg gum 4 mg PO DIRECTED 01/03/23 01/13/24 nicotine 21 mg/24 hr daily 1 patch transdermal DAILY 01/03/23 01/13/24 transdermal patch (Nicoderm CQ) clindamycin HCl 150 mg capsule 450 mg (3 x 150 mg) PO Q6H 7 days 01/13/24 #84 caps furosemide 20 mg tablet (Lasix) 20 mg PO DAILY #5 tabs 01/13/24 Previous Rx's ?Medication ?Instructions ?Recorded clindamycin HCl 150 mg capsule 450 mg (3 x 150 mg) PO Q6H 7 days 01/13/24 #84 caps furosemide 20 mg tablet (Lasix) 20 mg PO DAILY #5 tabs 01/13/24 Allergies Allergy/AdvReac Type Severity Reaction Status Date / Time No Known Allergies Allergy Unverified 01/13/24 02:06 General Stated Complaint: Cellulitis FRANCISCO: 3 Review of Systems All systems reviewed & are unremarkable except as noted in HPI and below Exam Narrative Exam Narrative: 1.Const: Well-nourished, Well-developed, appearing stated age 2.Eyes: PERRL, no conjunctival injection, and symmetrical lids. 3.ENT: Atraumatic external nose and ears. Moist MM. Neck: Symmetric, trachea midline, No thyromegaly. 4.CVS: +S1/S2, No murmurs or gallops. Peripheral pulses 2+ and equal in all extremities. Brisk capillary refill in all extremities. 5.RESP: Unlabored respiratory effort. Clear to auscultation bilaterally. No wheezes rales or rhonchi 6.GI: Soft, Nontender/Nondistended, No hepatosplenomegaly. No guarding or rebound. 7.MSK: Legs demonstrate mild pitting edema bilaterally round +1 to +2. Multiple areas of mild folliculitis, with mild redness and induration. No focal calf tenderness. No large fluctuant abscesses. 8.Skin: Please see musculoskeletal 9.Neuro: merchandise adjustment clerk II-XII grossly intact. Sensation grossly intact, no focal neurologic deficits. 10.Psych: (AAO) x3. Appropriate mood and affect Course Vital Signs Vital signs: Vital Signs Temperature 36.1 C L 01/13/24 01:59 Pulse 98 H 01/13/24 01:59 Respiratory Rate 16 01/13/24 01:59 Blood Pressure 143/86 H 01/13/24 01:59 Pulse Oximetry 96 01/13/24 01:59 Temperature 36.1 C L 01/13/24 01:59 Temperature Source Temporal Artery Scan 01/13/24 01:59 Pulse 98 H 01/13/24 01:59 Respiratory Rate 16 01/13/24 01:59 Respiratory Effort Normal, Non-Labored 01/13/24 02:04 Blood Pressure 143/86 H 01/13/24 01:59 Blood Pressure Position Sitting 01/13/24 01:59 Pulse Oximetry 96 01/13/24 01:59 Oxygen Delivery Method Room Air 01/13/24 01:59 Oxygen Flow Rate 0 01/13/24 01:59 Pain Level 4 01/13/24 01:59 Medical Decision Making 33-year-old female with a past medical history of polysubstance abuse and IV drug use, presents today for swelling and redness in her lower extremities. Patient states that for the last 3 weeks she has noticed mild swelling and red lesions on her legs. She has never injected in her shins or calves before, however she has injected around her thighs in the past, the last time she did this was a month or so ago. She does not inject in her feet. She states that the red lesions are mildly tender, no itchiness. She denies any shortness of breath, chest pain, recent fever or chills. She denies any recent long trips surgeries or procedures. No history of blood clots. She does have a history of MRSA, and has received treatment for it. She denies any other complaints at this time. No history of cardiac disease, congestive heart failure or other problems. Exam demonstrates multiple small areas of folliculitis with surrounding cellulitis on her lower extremities. No circumferential cellulitis. They all appear to be isolated small lesions. Potentially from scratching, insect bites, or other initial causes are uncertain, however now there is definitely evidence of mild cellulitis. She also has very mild pitting edema. No focal calf tenderness, and no generalized calf tenderness. She does appear to be inconsistent with DVT clinically. She has no chest pain or shortness of breath, no murmur on auscultation, no exertional dyspnea or positional nocturnal dyspnea. Patient shows no evidence of sepsis. Blood pressure stable. She is afebrile and denies any fevers at home. Will treat with clindamycin secondary to her history of MRSA, give 3 days of Lasix to help with the extra edema, recommend avoidance of salty foods, and leg wrapping use if able. Discussed red flags which to return. Will give a dose of clindamycin here and a prescription for home. I have extensively reviewed the treatment plan and discharge instructions with the patient. I have addressed all patient concerns at this time. The patient was made aware of what symptoms to monitor for that would warrant a return to the emergency department. Discussed the plan with the patient, they demonstrate verbal understanding and agreement with our assessment and plan at this time. The documentation in this chart was dictated using [employer] dictation software. Please excuse any dictation errors. Quality:SDOH Health Related Social Needs: No Data to Display PFSH All Active Problems Edema, peripheral (Acute) Cellulitis of right leg (Acute) Cellulitis of left leg (Acute) Folliculitis (Acute) Polysubstance abuse (Acute) Acute hypokalemia (Acute) Dehydration (Acute) Cellulitis of left arm (Acute) Previous delivery, delivered (Acute) Medical History Drug abuse Heroin abuse Asthma Migraine Surgical History section (04/01/10) failed induction for post dates. No dilation. Velamentouse cord insertion noted on path report. No distress. Male named Alli 7lb 14oz. Family History Father Essential hypertension Diabetes Utyflz-vf-dzf Ivon's chorea Social History Smoking/Tobacco Use Status: Current every day Tobacco Type: cigarettes Smoking risk assessment performed?: Yes Alcohol Intake: never Drug use: Daily Substance use type: heroin, painkillers and IV drugs Details: 01/03/23: pt states fentanyl every other day Do you feel safe at home: Yes Do you feel safe in your relationship?: Yes
[2024-01-13] MEDS: Clindamycin 150 MG CAP, 12 CAPS/BTL 450 MG PO (02:12)
[2024-01-13] MEDS: Furosemide 20 MG TAB PO (02:13)
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
--- OUTSIDE RECORDS SUMMARY | 2024-01-13 02:13 | XMS_ITS | Encounter Summary ---
[place] [address] Care Team Providers Care Nursing Surgical Services Director Name Role Phone Tiffany Houser MD Primary Care Provider [phone] Encounter Details Date Type Department Care Team (Late st Contact Info) Description 04/01/2023 Notes Only [place] [id number] Pura Malcolm, RN Social History Tobacco Use Types Packs/Day Years Used Date Smoking Tobacco: Every Day Cigarettes Smokeless Tobacco: Never Comments:About 3 cigarettes daily [facility] Inpatient Questions Answer Date Recorded Does Anyone [...] on file documented as of this encounter Progress Notes * Pura Malcolm, RN - 04/01/2023 1:26 PM EDT Infectious Disease/OPAT Program Fax d/c PICC Order Faxed d/c PICC order to [facility] infusion suite on 04/01/23 at 1300 Confirmed fax on 04/01/23 at 1315. documented in this encounter Plan of Treatment Not on file documented as of this encounter Visit Diagnoses Not on filedocumented in this encounter Care Teams Nursing Surgical Services Director Relationship Specialty Start Date End Date Tiffany Houser MD [address] [place] [address] PCP - General 06/28/10 documented as of this encounter
--- OUTSIDE RECORDS SUMMARY | 2024-01-13 02:13 | XMS_ITS | Encounter Summary ---
Author Organization [facility] [place] [address] Care Team Providers Care Taker Off Braker Machine Name Role Phone Tiffany Houser MD Primary Care Provider [phone] Encounter Details Date Type Department Care Team (Late st Contact Info) Description 04/01/2023 Orders [place] [address] Brittany Mccracken MD [facility] [place] [address] Epidural abscess; MRSA bacteremia; Staphylococcal arthritis of right knee Social History Tobacco Use Types Packs/Day Years Used Date Smoking Tobacco: Every Day Cigarettes Smokeless Tobacco: Never Comments:About 3 cigarettes daily [facility] Inpatient Questions Answer Date Recorded Does [...] as of this encounter Plan of Treatment Not on file documented as of this encounter Visit Diagnoses Diagnosis 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
--- OUTSIDE RECORDS SUMMARY | 2024-01-13 02:13 | XMS_ITS | Encounter Summary ---
[place] [address] Care Team Providers Care Veneer Drier Feeder Name Role Phone Tiffany Houser MD Primary Care Provider [phone] Encounter Details Date Type Department Care Team (Late st Contact Info) Description 02/28/2023 [place] [address] Jaimee Guerrero Social History Tobacco Use Types Packs/Day Years Used Date Smoking Tobacco: Every Day Cigarettes Smokeless Tobacco: Never Comments:About 3 cigarettes daily [facility] Inpatient Questions Answer Date Recorded Does Anyone [...] on filedocumented in this encounter Care Teams Veneer Drier Feeder Relationship Specialty Start Date End Date Tiffany Houser MD [address] [place], [place] [id number] PCP - General 06/28/10 documented as of this encounter
--- OUTSIDE RECORDS SUMMARY | 2024-01-13 02:13 | XMS_ITS | Encounter Summary ---
Author Organization [facility] Address [facility] [place] [address] Care Team Providers Care Crane Operator Name Role Phone Tiffany Houser MD Primary Care Provider [phone] Reason for Referral * Consultation (Routine) - Duplicate Referral Specialty Diagnoses / Procedures Referred By Contac t Referred To Contact Infectious Diseases Diagnoses Epidural abscess MRSA bacteremia Staphylococcal arthritis of right knee Brittany Mccracken MD [facility] [place] [address] Brittany Mccracken MD [facility] [place] [address] Referral ID Status Reason Start Date Expiration Date Visits Requested Visits Authorized [id number] Duplicate Referral Assume Subset of Care 02/14/2023 02/14/2024 1 1 Encounter Details Date Type Department Care Team (Late st Contact Info) Description 02/14/2023 Orders [place] [address] Brittany Mccracken MD [facility] [place] [address] Epidural abscess; MRSA bacteremia; Staphylococcal arthritis of right knee Social History Tobacco Use Types Packs/Day Years Used Date Smoking Tobacco: Every Day Cigarettes Smokeless Tobacco: Never Comments:About 3 cigarettes daily [facility] Inpatient Questions Answer Date Recorded Does Anyone [...] of this encounter Plan of Treatment Scheduled Referrals Name Type Priority Associated Diagnoses Order Schedule OPAT: Order / Recommendation for Post Discharge IV Antibiotic Management Outpatient Referral Routine Epidural abscess MRSA bacteremia Staphylococcal arthritis of right knee Ordered: 02/14/2023 documented as of this encounter Visit Diagnoses Diagnosis Epidural abscess 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
--- OUTSIDE RECORDS SUMMARY | 2024-01-13 02:13 | XMS_ITS | Encounter Summary ---
Author Organization [facility] [place] [address] Care Team Providers Care Judicial Reporter Name Role Phone Tiffany Houser MD Primary Care Provider [phone] Encounter Details Date Type Department Care Team (Late st Contact Info) Description 04/29/2023 Notes [place] [address] Gaby Milan APRN [facility] [place] [address] Social History Tobacco Use Types Packs/Day Years Used Date Smoking Tobacco: Every Day Cigarettes Smokeless Tobacco: Never Comments:About 3 cigarettes daily [facility] Inpatient Questions Answer Date Recorded Does [...] as of this encounter Progress Notes * Gaby Milan APRN - 04/29/2023 3:21 PM EST Called [facility] to see if patient showed up for her rescheduled MRI. She was a no show to that appointment. Patient's ID Attending, Dr. Finney, notified. Gaby Milan APRN, Infectious Disease 04/29/2023 3:00 PM documented in this encounter Plan of Treatment Not on file documented as of this encounter Visit Diagnoses Not on filedocumented in this encounter Care Teams Judicial Reporter Relationship Specialty Start Date End Date Tiffany Houser MD [address] [place] [address] PCP - General 06/28/10 documented as of this encounter
--- OUTSIDE RECORDS SUMMARY | 2024-01-13 02:13 | XMS_ITS | Encounter Summary ---
[place] [address] Care Team Providers Care Rv Repair Technician Name Role Phone Tiffany Houser MD Primary Care Provider [phone] Encounter Details Date Type Department Care Team (Late st Contact Info) Description 03/07/2023 Telephone [place] [address] Tiffany Villavicencio Social History Tobacco Use Types Packs/Day Years [...] on file documented as of this encounter Miscellaneous Notes * Telephone Encounter - Tiffany Villavicencio - 03/07/2023 12:03 PM EDT This CHW called patient after hearing she had not gone to her appointment this week for weekly lab draws and PICC dressing change. Patient's answered the phone reporting that Pura wasn't home at the moment. He stated that they thought her appointment was for 1pm, because this is when they went last week, and he was planning on bringing her there this afternoon. Tiffany Villavicencio Operating Engineer Apprentice documented in this encounter Plan of Treatment Not on file documented as of this encounter Visit Diagnoses Not on filedocumented in this encounter Care Teams Rv Repair Technician Relationship Specialty Start Date End Date Tiffany Houser MD [address] [place] [address] PCP - General 06/28/10 documented as of this encounter
--- OUTSIDE RECORDS SUMMARY | 2024-01-13 02:13 | XMS_ITS | Encounter Summary ---
Author Organization [facility] Address [facility] [place] [address] Care Team Providers Care Nurse Informatics Educator Name Role Phone Tiffany Houser MD Primary Care Provider Reason for Referral * Consultation (Routine) - Duplicate Referral Specialty Diagnoses / Procedures Referred By Contac t Referred To Contact Infectious Diseases Diagnoses Epidural abscess MRSA bacteremia Staphylococcal arthritis of right knee Brittany Mccracken MD [facility] [place] [address] Brittany Mccracken MD [facility] [place] [address] Referral ID Status Reason Start Date Expiration Date Visits Requested Visits Authorized [id number] Duplicate Referral Assume Subset of Care 03/14/2023 03/13/2024 1 1 Encounter Details Date Type Department Care Team (Late st Contact Info) Description 03/14/2023 Orders [place] [address] Brittany Mccracken MD [facility] [place] [address] Epidural abscess; MRSA bacteremia; Staphylococcal arthritis of right knee Social History Tobacco Use Types Packs/Day Years Used Date Smoking Tobacco: Every Day Cigarettes Smokeless Tobacco: Never Comments:About 3 cigarettes daily [facility] Inpatient Questions Answer Date Recorded Does [...] bacteremia Staphylococcal arthritis of right knee Ordered: 03/14/2023 documented as of this encounter Visit Diagnoses Diagnosis Epidural abscess 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
--- OUTSIDE RECORDS SUMMARY | 2024-01-13 02:13 | XMS_ITS | Encounter Summary ---
Author Organization [facility] [place] [address] Care Team Providers Care Tube Molder Fiberglass Name Role Phone Tiffany Houser MD Primary Care Provider [phone] Encounter Details Date Type Department Care Team (Late st Contact Info) Description 04/19/2023 Orders [place] [address] [facility] [place] [address] Epidural abscess Social History Tobacco Use Types Packs/Day Years Used Date Smoking Tobacco: Every Day Cigarettes Smokeless Tobacco: Never Comments:About 3 cigarettes daily [facility] Inpatient Questions Answer Date Recorded Does [...] as of this encounter Progress Notes * Isaias Finney MD - 04/19/2023 2:02 PM EDT Infectious Diseases Update: [place] Medicaid will only approve doxycycline monohydrate 50mg and 100mg pills. I changed doxycycline to doxycycline monohydrate 100mg PO BID. 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
--- OUTSIDE RECORDS SUMMARY | 2024-01-13 02:13 | XMS_ITS | Encounter Summary ---
[place] [address] Care Team Providers Care Manager Convention Name Role Phone Tiffany Houser MD Primary Care Provider [phone] Encounter Details Date Type Department Care Team (Late st Contact Info) Description 01/17/2023 Notes [place] [address] Ena Barrientos RN Social History Tobacco Use Types Packs/Day Years Used Date Smoking Tobacco: Every Day Cigarettes [facility] Inpatient Questions Answer Date Recorded Does Anyone [...] as of this encounter Progress Notes * Ena Barrientos RN - 01/17/2023 1:03 PM EDTSummary: fax confirmation Infectious Disease OPAT Program Faxed to [facility] Infusion suite on 01/17/23 at 1047 Fax confirmation on 01/17/23 at 1054 Documents faxed: OPAT order Standing weekly lab orders PICC line insertion note Demographics PWID meeting note ID notes x 2 OPAL Gonzalez, RN, ACM-RN OPAT Program documented in this encounter Plan of Treatment Not on file documented as of this encounter Visit Diagnoses Not on filedocumented in this encounter Care Teams Manager Convention Relationship Specialty Start Date End Date Tiffany Houser MD [address] [place] [address] PCP - General 06/28/10 documented as of this encounter
--- OUTSIDE RECORDS SUMMARY | 2024-01-13 02:13 | XMS_ITS | Encounter Summary ---
[place] [address] Care Team Providers Care Swift Tender Name Role Phone Tiffany Houser MD Primary Care Provider [phone] Encounter Details Date Type Department Care Team (Late st Contact Info) Description 02/14/2023 Notes [place] [id number] Pura Malcolm, RN Social History Tobacco Use Types Packs/Day Years Used Date Smoking Tobacco: Every Day Cigarettes Smokeless Tobacco: Never Comments:About 3 cigarettes daily [facility] Inpatient Questions Answer Date Recorded [...] Progress Notes * Pura Malcolm, RN - 02/14/2023 4:27 PM EDT Infectious Disease Department Faxed to [facility] infusion suite on 02/14/23 at 1600 Fax confirmation on 02/14/23 at 1615 Document(s) faxed: Standing labs PICC and line care OPAT extension till 03/18 documented in this encounter Plan of Treatment Not on file documented as of this encounter Visit Diagnoses Not on filedocumented in this encounter Care Teams Swift Tender Relationship Specialty Start Date End Date Tiffany Houser MD [address] [place] [address] PCP - General 06/28/10 documented as of this encounter
--- OUTSIDE RECORDS SUMMARY | 2024-01-13 02:13 | XMS_ITS | Encounter Summary ---
[place] [address] Care Team Providers Care Test Data Developer Name Role Phone Tiffany Houser MD Primary Care Provider [phone] Encounter Details Date Type Department Care Team (Latest Contact Info) Description 02/14/2023 Travel Social History Tobacco Use Types Packs/Day Years [...] on filedocumented in this encounter Care Teams Test Data Developer Relationship Specialty Start Date End Date Tiffany Houser MD [address] [place] [address] PCP - General 06/28/10 documented as of this encounter
--- OUTSIDE RECORDS SUMMARY | 2024-01-13 02:13 | XMS_ITS | Encounter Summary ---
Author Organization Count Includes [facility] [address] Care Team Providers Care Plant Operations Engineer Name Role Phone Tiffany Houser MD Primary Care Provider [phone] Encounter Details Date Type Department Care Team (Late st Contact Info) Description 04/03/2023 Telephone [place] [id number] Brittany Mccracken MD [facility] [place] [address] Social History Tobacco Use Types Packs/Day Years Used Date Smoking Tobacco: Every Day Cigarettes Smokeless Tobacco: Never Comments:About 3 cigarettes daily [facility] Inpatient Questions Answer Date Recorded Does Anyone [...] encounter Miscellaneous Notes * Telephone Encounter - Brittany Mccracken MD - 04/03/2023 3:40 PM EDT ID Telephone Call / Updated Plan of Care Patient did not show up to MRI lumbar spine that was scheduled for 03/30 and canceled ID clinic appointment that was scheduled for 04/01 due to lack of having a ride. In light of these developments, I decided that it was no longer safe to indefinitely extend her IV daptomycin pending repeat spinal imaging, and [facility] to [facility] this agent and have her PICC line removed. I communicated with her mom, Angle, on Saturday, and posed the options of stopping antibiotics completely vs. an oral tail to bridge to a repeat MRI. Angle sounded like she favored the latter, which requested to have done locally at [facility]. I was unable to speak with Pura, as she was not with Elsi the time and reportedly does not have a working phone. I asked Angle to have Pura call our clinic back when she was with one of her parents, which Pura did not do. Since then, we have attempted to coordinate an MRI lumbar spine to be performed at [facility], but our and their team have been unable to reach Pura regarding scheduling. I ended up calling and successfully reaching Pura via phone today, but the call became disconnected before we were able to talk beyond an introduction. I then called Angle again, who informed me that Puar's PICC line was removed earlier this week. I again informed Angle that we would be willing to help facilitate Pura getting a repeat MRI lumbar spine at [facility] and prescribing her additional oral antibiotics to bridge to this being done. However, I told Angle that Pura needs to beable to meet us care home with regard to being reachable and engaging in her own care. Angle agreed. I told Angle to have Pura call our office back during business hours. If we do not hear from Jorge drummond, we will assume that she is no longer interested in being cared for by our ID team, inclusive of antibiotic prescriptions and imaging study orders. Brittany Mccracken MD Staff Physician in Infectious Diseases documented in this encounter Plan of Treatment Not on file documented as of this encounter Visit Diagnoses Not on filedocumented in this encounter Care Teams Plant Operations Engineer Relationship Specialty Start Date End Date Tiffany Houser MD [address] [place] [address] PCP - General 06/28/10 documented as of this encounter
--- OUTSIDE RECORDS SUMMARY | 2024-01-13 02:13 | XMS_ITS | Encounter Summary ---
Author Organization [facility] Address [facility] [place] [address] Care Team Providers Care Fashion Buyer Name Role Phone Tiffany Houser MD Primary Care Provider [phone] Reason for Visit * Consultation (Routine) - Closed Specialty Diagnoses / Procedures Referred By Contac t Referred To Contact Infectious Diseases Diagnoses Epidural abscess QT prolongation Bacteremia MRSA (methicillin resistant Staphylococcus aureus) Staphylococcal arthritis of right knee Helga Stout MD [facility] [place] [address] Helga Stout MD [facility] [place] [address] Referral ID Status Reason Start Date Expiration Date V isits Requested Visits Authorized [id number] Closed Assume Subset of Care 01/16/2023 01/16/2024 1 1 Encounter Details Date Type Department Care Team (Late st Contact Info) Description 02/14/2023 3:00 PM EDT Office Visit [place]ious [place] [address] Brittany Mccracken MD [facility] [place] [address] Epidural abscess (Primary Dx); MRSA bacteremia; 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; Medication monitoring encounter Social History Tobacco Use Types Packs/Day Years Used Date Smoking Tobacco: Every Day Cigarettes Smokeless Tobacco: Never Comments:About 3 cigarettes daily [facility] Inpatient Questions Answer Date Recorded Does Anyone [...] on file documented as of this encounter Last Filed Vital Signs Vital Sign Reading Time Taken Comments Blood Pressure 120/59 02/14/2023 2:44 PM EDT Pulse 85 02/14/2023 2:44 PM EDT Temperature 35.2 ??C (95.3 ??F) 02/14/2023 2:46 PM ED T Respiratory Rate - - Oxygen Saturation 99% 02/14/2023 2:44 PM EDT Inhaled Oxygen Concentration - - Weight 137.6 kg (303 lb 6.4 oz) 02/14/2023 2:44 PM EDT Height 177.8 cm (5' 10) 02/14/2023 2:44 PM EDT Body Mass Index 43.53 02/14/2023 2:44 PM EDT documented in this encounter Progress Notes * Willy Milan RN - 02/14/2023 3:58 PM EDT Pt states PICC Dsg hasn't been changed for a week and a half. External dressing very soiled. Dsg still occlusive. Double chlorhexidine scrub done. Extra care taken to clean exposed tubing/PICC areathat statloc holds, and surrounding skin. Pt instructed on importance of keeping site clean. Additional extension tubing flushed and cleaned. New tube gauze provided. Labs drawn per protocol and prior to Clave change and after 5ml blood waste. * Brittany Mccracken MD - 02/14/2023 3:00 PM EDT Infectious Disease Clinic Visit CC: MRSA bacteremia c/b R sided L4-L5 septic facet arthritis and large dorsal L3-L4 epidural abscess History of Present Illness: Pura Samaniego is a 32 y.o. 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 She was asses sed by neurosurgery but not deemed to be an optimal candidate for evacuation of this epidural abscess, in part due to concerns regarding her body habitus which would impact wound healing. She was also assessed by neuro-IR, who deemed that her epidural abscess would not be able to be drained due to its location. After having positive blood Cxs on 01/03 and 01/04, she achieved clearance of her bacteremia on 01/05, though did continue to have fevers for a few days afterwards. In terms of antimicrobials, she was initially treated with IV vancomycin but subsequently transitioned to IV daptomycin for ease of dosing in anticipation of hospital discharge. Of note, a formal PWID meeting was conducted on 01/16, at which point she was deemed to be an appropriate candidate for OPAT, and she was dischargedon 01/17. On an outpatient basis, her CRP has fluctuated week by week but has generally remained markedly elevated. Today, patient presents to ID clinic for her [id number] visit. She states that her back pain has markedly improved and is essentially gone. She denies any fevers, chills, or other systemic symptoms. Endorses full compliance with her IV daptomycin without any missed doses. She has not had issueswith the PICC line per se, though she missed her appointment at [facility] for dressing change and labs this Saturday, as she was under the impression that today's visit would be an adequate substitute for that. She remains on methadone and has snorted illicit drugs twice since being discharged. Denies anyactive IVDU including through her PICC line. She and her children are currently staying with her parents, and her is currently at an inpatient drug rehab facility. Antimicrobials: Daptomycin Review of Systems: As above, otherwise 14 point ROS negative Past Medical History: Patient Active Problem List Diagnosis Code CIS - Cervicalgia 723.1 CIS - Entered not Verified CIS - Lumbar Spine Pain 724.2 Epidural abscess G06.2 Medications: acetaminophen (Tylenol) 325 mg tablet hydrOXYzine (Atarax) 25 mg tablet naloxone (Narcan) 1 mg/mL Syringe DAPTOmycin (Cubicin) 500 mg Recon Soln gabapentin (Neurontin) 300 mg capsule nicotine polacrilex (Nicorette) 4 mg gum ibuprofen (Advil) 800 mg tablet melatonin 5 mg tablet methadone HCl (METHADONE ORAL) Allergies: No Known Allergies Immunizations: There is no immunization history on file for this patient. Family History: As above, otherwise non-contributory Social History: Social History Tobacco Use Smoking status: Every Day Types: Cigarettes Substance Use Topics Drug use: Yes Types: IV, Cocaine Vitals: Last value Range last 24 hrs Temperature Temp: -- Heart Rate Heart Rate: -- Blood Pressure BP: ()/() Respiratory Rate Resp: -- SpO2 SpO2: -- Physical Exam: General: In no acute distress, resting on exam table comfortably, pleasant Neck: Supple, trachea midline Pulmonary: Clear to auscultation bilaterally, no wheezes or crackles CV: Regular rate and rhythm, no murmurs Abdomen: Soft, non-distended, non-tender to palpation in all quadrants Extremities: No peripheral edema. PICC line on R upper extremity with intact but soiled-appearing dressing and overlying sleeve. MSK: No tenderness to palpation over midline spine or surrounding paraspinal muscles Skin: No rashes or lesions noted on visible skin Neuro: Alert and oriented, no focal deficits, moving all extremities spontaneously Psych: Normal mood and affect, linear thought process Laboratory: Recent Labs 01/17/23 0215 01/16/23 0225 01/15/23 0300 WBC 5.5 5.8 7.5 HGB 10.5* 10.8* 10.4* HCT 33.5* 34.2* 33.1* PLATELET 296 350 334 Recent Labs 01/17/23 0215 01/16/23 0225 01/15/23 0300 NA 139 139 140 K 4.3 4.1 3.9 CL 102 102 102 CO2 29 28 27 BUN 18 17 14 CREATININE 0.77 0.84 0.74 Recent Labs 01/11/23 0341 01/09/23 0142 01/07/23 0611 AST 28 22 73* ALT 51* 51* 81* ALKPHOS 118* 137* 147* BILITOT <0.2* <0.2* 0.3 BILIDIR 0.1 0.1 0.1 Microbiology: 01/09 BCx x2 - NG 01/08 BCx x2 - NG 01/07 BCx x2 - NG 01/06 BCx x2 - NG 01/05 Hep B sAg - negative; sAb - negative; core Ab - negative 01/05 Hep C Ab - negative 01/05 HIV screen - negative 01/05 BCx x2 - NG 01/04 BCx x2 - MRSA in 2/4 vials 01/03 BCx x2 - MRSA in 2/4 vials Radiology/Studies/Procedures: MRI of L-spine w/ & w/o IV contrast (01/04/2023) Findings suggestive of right L4-5 septic joint. Interval expansion of large dorsal epidural abscessfrom L3 to L5 produces severe thecal sac narrowing and compression of cauda equina nerve roots. Impression & Plan: Pura Samaniego is a 32 y.o. 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 She is nearing completion of 6 weeks of IV vancomycin -> daptomycin for this disseminated MRSA infection and has improved symptomatically. However, serial CRP checks on an outpatient basis have concerningly been significantly elevated. In light of her known large epidural abscess that was not intervened on during her last admission, I would like to repeat an MRI lumbar spine w/ & w/o IV contrast to assess the status of this abscess now. I do think she needs to remain on IV antibiotics until this study is performed, though risk/benefit needs to be balanced with the likelihood of line-associated infection, especially as the line does not appear to have been optimally cared for. - Continue IV daptomycin 800 mg daily -- will empirically extend for another 1 month to allow time for repeat MRI - Repeat MRI lumbar spine w/ & w/o IV contrast now - Asked our secretaries to reach out to the patient to assist with scheduling of this study - Change PICC dressing today and draw overdue weekly labs - Continue weekly CBC w/ diff, CMP, and CRP checks at [facility] while on IV daptomycin - Emphasized importance of not missing these lab draws to patient - Thanked patient for honesty regarding recent drug use and counseled specifically against injecting through PICC line I spent a total of 50 minutes on the date of service on the [id number] encounter, chart review, clinical decision making, documentation, and coordination of care. RTC: ~1 month pending timing of repeat MRI Brittany Mccracken MD Staff Physician in Infectious Diseases documented in this encounter Plan of Treatment Not on file documented as of this encounter Procedures Procedure Name Priority Date/Time Associated Diagnosis Comments CRP, ACUTE INFLAMMATION Routine 02/14/2023 3:55 PM EDT HEMOGRAM Routine 02/14/2023 3:55 PM EDT DIFFERENTIAL, AUTOMATED Routine 02/14/2023 3:55 PM EDT CK Routine 02/14/2023 3:55 PM EDT COMPREHENSIVE METABOLIC PANEL (NON-FASTING) Routine 02/14/2023 3:55 PM EDT documented in this encounter Results * Differential, Automated (02/14/2023 3:55 PM EDT) Neutrophils % 53.7 % [facility] Neutr Abs (ANC) 2.47 1.70 - 6.10 x10(3)/[facility] Lymphocytes % 28.8 % [facility] Lymphocytes Abs 1.3 0.9 - 3.2 x10(3)/[facility] Monocytes % 10.5 % [facility] Monocyte Abs 0.5 0.3 - 0.9 x10(3)/[facility] Eosinophils % 5.9 % [facility] Eosinophils Abs 0.3 0.0 - 0.4 x10(3)/[facility] Basophils % 0.7 % [facility] Basophils Abs 0.0 0.0 - 0.1 x10(3)/[facility] LABORATORY Immature Gran % 0.40 % [facility] Comment: Immature granulocytes(IG's)percentage and absolute count will include metamyelocytes, myelocytes, and promyelocytes. Blood smears from CBCs yielding IG's will be scanned manually for concordance. If this scan disagrees with the automated IG or if promyelocytes are noted, a manual differential will be performed. Jaqueline Gran Abs 0.02 0.00 - 0.04 x10(3)/[facility] LABORATORY Blood Venous Draw / Unknown 02/14/2023 3:55 PM EDT 02/14/2023 5:20 PM EDT Narrative Resulting Agency Comment Spec In Lab Helga Stout MD HEMATOLOGY ORDERABLE S [facility] [place] [address] * (ABNORMAL) Hemogram (02/14/2023 3:55 PM EDT) WBC 4.6 4.0 - 9.5 x10(3)/[facility] LABORATORY RBC 4.23 4.00 - 5.21 x10(6)/[facility] Hemoglobin 10.9(L) 11.7 - 15.5 g/dL [facility] Hematocrit 35.2(L) 35.7 - 45.8 % [facility] MCV 83.2 82.6 - 94.4 fL [facility] MCH 25.8(L) 27.1 - 32.0 pg [facility] MCHC 31.0(L) 31.7 - 35.0 g/dL [facility] Platelets 235 145 - 357 x10(3)/[facility] RDWSD 43.1 37.0 - 46.0 fL [facility] RDWCV 14.2(H) 11.5 - 14.1 % [facility] MPV 10.5 7.6 - 12.9 fL [facility] nRBC % Auto 0.0 % [facility] nRBC Abs Auto 0.000 0.000 - 0.000 x10(3)/mcL [facility] Blood Venous Draw / Unknown 02/14/2023 3:55 PM EDT 02/14/2023 5:20 PM EDT Narrative Resulting Agency Comment Spec In Lab Helga Stout MD HEMATOLOGY ORDERABLE S [facility] [place] [address] * (ABNORMAL) CK (02/14/2023 3:55 PM EDT) [facility] CK, Total 422(H) 0 - 160 unit/L [facility] Blood Venous Draw / Unknown 02/14/2023 3:55 PM EDT 02/14/2023 5:19 PM EDT Narrative Resulting Agency Comment Spec In Lab Helga Stout MD CHEMISTRY ORDERABLES Performing Organization Address City/[facility]/ZIP Co de Phone Number [facility] [place] [address] * (ABNORMAL) CRP, acute inflammation (02/14/2023 3:55 PM EDT) [facility] CRP 127.8(H) <=4.9 mg/L [facility] Blood Venous Draw / Unknown 02/14/2023 3:55 PM EDT 02/14/2023 5:19 PM EDT Narrative Resulting Agency Comment Spec In Lab Helga Stout MD CHEMISTRY ORDERABLES Performing Organization Address City/[facility]/ZIP Co de Phone Number [facility] [place] [address] * (ABNORMAL) Comprehensive metabolic panel (non-fasting) (02/14/2023 3:55 PM EDT) [facility] Glucose Lvl 113 65 - 199 mg/dL [facility] Comment:Diabetes: >=200 mg/d L plus symptoms BUN 8 8 - 18 mg/dL [facility] Creatinine 0.79 0.70 - 1.20 mg/dL [facility] Sodium 141 135 - 145 mmol/L [facility] Potassium 3.2(L) 3.5 - 5.0 mmol/L [facility] Comment: Please note: ??Patients with WBC >100,000 may have falsely elevated Potassium levels. ??For accurate Potassium quantification in these patients send serum separator tube (gold top) for subsequent determinations. ??Contact the Clinical Chemistry Laboratory if there are any questions. Chloride 103 98 - 107 mmol/L [facility] CO2 28 22 - 31 mmol/L [facility] Anion Gap 10 5 - 15 mmol/L [facility] Calcium 8.8 8.5 - 10.5 mg/dL [facility] Total Protein 6.4 6.1 - 8.0 g/dL [facility] Albumin 3.2 3.2 - 5.2 g/dL [facility] AST 12 0 - 30 unit/L [facility] ALT 13 0 - 30 unit/L [facility] Alk Phos 90 35 - 105 unit/L [facility] Total Bilirubin <0.2(L) 0.2 - 1.3 mg/dL [facility] Estimated GFR 101 >=60 mL/min/1. 73 m?? [facility] Comment: This patient's estimated GFR was calculated using the 2020 CKD-EPI equation. The estimated GFR can vary from the measured GFR by up to 30% in the absence of rapidly changing kidney function. Assessment of the estimated GFR is not appropriate when creatinine concentrations are rapidly changing. For clinical situations in which a more precise estimate of GFR is necessary, consider alternative methods of GFR estimation such as a 24-hour urine creatinine clearance. Assignment of CKD stage 1-5 for patients with an eGFR near the transition point between stages may be based on clinical assessment of muscle mass and symptoms in addition to eGFR. Blood Venous Draw / Unknown 02/14/2023 3:55 PM EDT 02/14/2023 5:19 PM EDT Narrative Resulting Agency Comment Spec In Lab Helga Stout MD CHEMISTRY ORDERABLES Performing Organization Address City/State/[facility] Co de Phone Number [facility] [place] [address] documented in this encounter Visit Diagnoses Diagnosis Epidural abscess- Primary Intracranial and intraspinal abscess of unspecified site MRSA bacteremia Bacteremia [facility] current use of antibiotics Encounter for long-term (current) use of antibiotics Medication monitoring encounter Encounter for therapeutic drug monitoring documented in this encounter Care Teams Fashion Buyer Relationship Specialty Start Date End Date Tiffany Houser MD [address] [place] [address] PCP - General 06/28/10 documented as of this encounter
--- OUTSIDE RECORDS SUMMARY | 2024-01-13 02:13 | XMS_ITS | Clinical Summary ---
Author Organization [facility] Address [facility] [place] [address] Care Team Providers Care Photographer Motion Picture Name Role Phone Tiffany Houser MD Primary Care Provider [phone] Allergies No known active allergies Medications Medication Sig Dispensed Refills Start Date End Date Status gabapentin (Neurontin) 300 mg capsule Take 600 mg by mouth 3 times daily. 07/09/2022 Active nicotine polacrilex (Nicorette) 4 mg gum Take 4 mg by mouth as needed. 07/11/2022 Active ibuprofen (Advil) 800 mg tablet Take 800 mg by mouth every 6 hours as needed for Pain. Active melatonin 5 mg tablet Take 15 mg by mouth nightly as needed. Active methadone HCl (METHADONE ORAL) Take by mouth. Acti ve acetaminophen (Tylenol) 325 mg tablet Take 3 tablets by mouth every 6 hours. 30 tablet 1 01/17/2023 Active hydrOXYzine (Atarax) 25 mg tablet Take 1 tablet by mouth 4 times daily as needed for Anxiety. 30 tablet 12 01/17/2023 Active naloxone (Narcan) 1 mg/mL Syringe For opioid overdose,spray 1 mL in each nostril. Repeat after 3-5 minutes if no or minimal response. Call 911 before administration. 4 mL 01/17/2023 Active 0.9 % sodium chloride (sodium chloride 0.9%) Parenteral Solution 02/08/2023 Active levonorgestreL (Mirena) 21 mcg/24 hours (8 yrs) 52 mg IUD As directed 11/18/2014 Active nicotine (Nicoderm CQ) 21 mg/24 hr Patch 24 hr daily. 01/03/2023 Active sodium chloride 0.9 %, flush, (BD PosiFlush Normal Saline 0.9) SyringeIndications :Epidural abscess,MRSA bacteremia,Staphyl ococcal arthritis of right knee Inject 10 mLs into the vein as needed (For Line Patency - See Instructions). FLUSH PROTOCOL WITH MEDICATIONS (SASH): Before med infusion: flush with NS 10 mL. After med infusion: flush with NS 10 mL then heparin (10 units/mL) 3 mL. Additional Lumens: flush twice daily & PRN with NS 10 mL and then heparin (10 units/mL) 3 mL. // WITH BLOOD WITHDRAWAL: Before blood draw: flush with NS 10 mL. After blood draw: flush with NS 20 mL and then heparin (10 units/mL) 3 mL. // FLUSH WITHOUT MEDICATION: Twice Daily & PRN: flush with NS 10 mL and then heparin (10 units/mL) 3 mL 100 each 03/14/2023 Active heparin flush, porcine, 10 unit/mL SolutionIndication s:Epidural abscess,MRSA bacteremia,Staphyl ococcal arthritis of right knee Inject 3 mLs into the vein as needed (For Line Patency - See Instructions). FLUSH PROTOCOL WITH MEDICATIONS ([facility]): Before med infusion: flush with NS 10 mL. After med infusion: flush with NS 10 mL then heparin (10 units/mL) 3 mL. Additional Lumens: flush twice daily & PRN with NS 10 mL and then heparin (10 units/mL) 3 mL. // WITH BLOOD WITHDRAWAL: Before blood draw: flush with NS 10 mL. After blood draw: flush with NS 20 mL and then heparin (10 units/mL) 3 mL. // FLUSH WITHOUT MEDICATION: Twice Daily & PRN: flush with NS 10 mL and then heparin (10 units/mL) 3 mL 100 each 03/14/2023 Active alteplase (Cathflo) 2 mg Recon SolnIndications:Ep idural abscess,MRSA bacteremia,Staphyl ococcal arthritis of right knee Instill reconstituted alteplase (Cathflo) 2 mg per instillation (based on volume of lumen). May repeat x1 per occlusion 1 each 03/14/2023 Active Active Problems Problem Noted Date Diagnosed Date Epidural abscess 01/03/2023 CIS - Entered not Verified 06/26/2010 CIS - Cervicalgia 723.1 CIS - Lumbar Spine Pain 724.2 Social History Tobacco Use Types Packs/Day Years [...] on file Sexual Orientation Not on file Last Filed Vital Signs Vital Sign Reading Time Taken Comments Blood Pressure 120/59 02/14/2023 2:44 PM EDT Pulse 85 02/14/2023 2:44 PM EDT Temperature 35.2 ??C (95.3 ??F) 02/14/2023 2:46 PM ED T Respiratory Rate 12 01/17/2023 11:1 6 AM EDT Oxygen Saturation 99% 02/14/2023 2:44 PM EDT Inhaled Oxygen Concentration - - Weight 137.6 kg (303 lb 6.4 oz) 02/14/2023 2:44 PM EDT Height 177.8 cm (5' 10) 02/14/2023 2:44 PM EDT Body Mass Index 43.53 02/14/2023 2:44 PM EDT Plan of Treatment Health Maintenance Due Date Last Done Comments Pneumococcal Vaccine: At-Risk 5-64yrs (1 of 2 - PCV) 0 1994 Lipid Screening 2006 Hepatitis B vaccine (0-59 yrs) (1) 08/19/2007 Tdap adult 08/19/2007 Tetanus vaccine 08/19/2007 HPV test 2018 PAP Smear 2018 Covid-19 Vaccine (1 - 2022-24 season) 2023 Influenza (Flu) vaccine (1 o f 1 - Influenza standard series) 02/16/2024 HIV screen Completed 01/05/2023 Hepatitis C Screening Completed 01/05/2023 Procedures Procedure Name Priority Date/Time Associated Diagnosis Comments HC HIV SCREEN, 4TH GENERATION Routine 01/05/2023 2:20 PM EDT HC HEPATITIS C ANTIBODY Routine 01/05/2023 2:20 PM EDT from Last 3 Months or Most Recently Relevant to Health Maintenance Results * Hepatitis C Antibody (01/05/2023 2:20 PM EDT) Hepatitis C Ab Negative Negative [facility] Blood 01/05/2023 2:20 PM EDT 01/05/2023 2:28 PM EDT Narrative Resulting Agency Comment Spec In Lab Eyal Sykes MD IMMUNOLOGY ORDERAB LES Performing Organization Address [facility]/ZIP Co de Phone Number [facility] [place] [address] * HIV Screen, 4th Generation ([facility]/CGP/APD/NLH) (01/05/2023 2:20 PM EDT) HIV-1/2 Ab and Ag Negative Negative [facility] Comment: This 4th Generation HIV test screens for the presence of the HIV-1 p24 antigen as well as antibodies reactive against HIV-1 and HIV-2. A negative screen does not rule out an acute HIV infection. If acute HIV infection is suspected, testing should be repeated in 2 - 3 weeks or HIV nucleic acid testing performed. HIV Comment Low Risk of HIV Infection [facility] Blood 01/05/2023 2:20 PM EDT 01/05/2023 2:28 PM EDT Narrative Resulting Agency Comment Spec In Lab Eyal Sykes MD IMMUNOLOGY ORDERAB LES [facility] [place] [address] from Last 3 Months or Most Recently Relevant to Health Maintenance Advance Directives * Attempt Cardiopulmonary Resuscitation - Inpatient (Latest Code Status on File) Date Activated Date Inactivated Comments 01/03/2023 10:58 PM 01/17/2023 3:36 PM Question Answer Comments Code Status decision made by: Patient Care Teams Photographer Motion Picture Relationship Specialty Start Date End Date Tiffany Houser MD [address] [place] [address] PCP - General 06/28/10
--- OUTSIDE RECORDS SUMMARY | 2024-01-13 02:13 | XMS_ITS | Encounter Summary ---
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 female with a PMH of OUD including IVDU, on Methadone, who last injected 2 days TAILMAN, who was transferred to from [facility]23 with findings of epidural Abscess on imaging and found to have MRSA Bacteremia. Per chart, patient initially presented with acute onset low back and RLE pain and was found on MRI to have evidence of L4-S1 discitis/Osteomyelitis associated with epidural Abscess and MRSA Bacteremia. Initially, she was treated with IV Vancomycin plus Ceftriaxone and when cultures grew MRSA Ceftriaxone was discontinued. Patient cleared Bacteremia on 01/05/2023. TTE was negative for evidence of Endocarditis. Repeat imaging showed interval expansion of large dorsal epidural Abscess from L3 to L5 with severe thecal sacnarrowing and compression of cauda equina nerve roots. IR guided drainage of the Abscess was deferred as there were felt to be more risks due to the location of the collection. During the hospitalization, pain control was an issue with patient reporting severe back pain and requiring a Ketamine gtt. Patient had very limited movement due to pain. Eventually, her pain was well-managed on Methadone dosing and she discharged without opioids or muscle relaxants. Per ID, the plan was for 6 weeks of IV Vancomycin for MRSA Bacteremia with L4-S1 discitis/Osteomyelitis with an associated epidural Abscess. On 01/16/2023, an interdisciplinary meeting, attended by representatives from the Primary medical/surgical team, ID team, BIT team, Nursing, Case Management/Social Work, OPAT team, NELC, and VNA was convened to discuss the coordination of care of Pura Samaniego around the treatment plan for IV a ntibiotics, substance use disorder, and candidacy for enrollment into OPAT. After careful review ofpatient's medical conditions and hospital course, engagement with her medical treatment plan and addiction care, and consideration of risk factors for high risk of treatment failure in an outpatient setting, the interdisciplinary team determined that Ms. Samaniego was a good candidate for enrollment to home IV antibiotic therapy. Patient had PICC line placed MAXIMILIANO 01/16/2023 and she was discharged via OPAT program. She presents today, via Telephone, for her ID interim visit to evaluate her progress and response to long-term IV antimicrobial therapy. A Telehealth visit was planned, however, patient does not have the technologyto support that today. ROS: Denies fevers, chills Denies chest pain, palpitations Denies shortness of breath, cough Denies abdominal pain, nausea/vomiting, constipation/diarrhea Denies hematuria, dysuria Denies rash Medications: Current Outpatient Medications Medication Sig Note Dispense Refill 0.9 % sodium chloride (sodium chloride 0.9%) Parenteral Solution levonorgestreL (Mirena) 21 mcg/24 hours (8 yrs) 52 mg IUD As directed nicotine (Nicoderm CQ) 21 mg/24 hr Patch 24 hr daily. DAPTOmycin (Cubicin) 350 mg injection solution Inject 800 mg into the vein daily for 32 days. 96 each 0 sodium chloride 0.9 %, flush, (BD PosiFlush Normal Saline 0.9) Syringe Inject 10 mLs into the vein as needed (See Instructions). FLUSH PROTOCOL WITH MEDICATIONS (SASH): Before [...] heparin (10 units/mL) 3 mL 100 each PRN heparin flush, porcine, 10 unit/mL Solution Inject 3 mLs into the vein as needed. FLUSH PROTOCOL WITH MEDICATIONS (SASH): Before med [...] heparin (10 units/mL) 3 mL 100 each PRN alteplase (Cathflo) 2 mg Recon Soln Instill reconstituted alteplase (Cathflo) 2 mg per instillation(based on volume of lumen). May repeat x1 per occlusion 1 each DAPTOmycin (Cubicin) 500 mg injection solution 800 mg, 132 mL/hr, IV, Q24H 1 each 0 acetaminophen (Tylenol) 325 mg tablet Take 3 tablets by mouth every 6 hours. 30 tablet 1 hydrOXYzine (Atarax) 25 mg tablet Take 1 tablet by mouth 4 times daily as needed for Anxiety. 30 tablet 12 naloxone (Narcan) 1 mg/mL Syringe For opioid overdose,spray 1 mL in each nostril. Repeat after 3-5 minutes if no or minimal response. Call 911 before administration. 4 mL 0 gabapentin (Neurontin) 300 mg capsule Take 600 mg by mouth 3 times daily. nicotine polacrilex (Nicorette) 4 mg gum Take 4 mg by mouth as needed. 02/14/2023: Needs refill ibuprofen (Advil) 800 mg tablet Take 800 mg by mouth every 6 hours as needed for Pain. melatonin 5 mg tablet Take 15 mg by mouth nightly as needed. methadone HCl (METHADONE ORAL) Take by mouth. 01/04/2023: Unable to verify dose- [facility] opens 0600, Allergies: No Known Allergies Physical Exam: General: Patient evaluated via Telephone in no distress. Alert and oriented, pleasant Pulmonary: Non-labored respirations. No audible wheezing Neuro: Alert and oriented to person, place, time, and situation. No dysarthria Psych: Normal affect Labs: 01/28/2023: WBC = 3.64, Hb = 11.5, Plts = 142 BUN = 7, creatinine = 0.9 ALT = 27, AST = 14 CRP = 100.1 mg/L CPK = 26 U/L Microbiology: Reviewed Imaging: Reviewed Assessment: From an ID perspective, the patient is doing o.k. AEB no leukocytosis. CRP is elevated this week = 100.1 mg/L (increased from 62.4 mg/L last week) and that is of undetermined significance. She is experiencing headaches and dizziness but states these symptoms are not new. She also has had episodes of night sweats and chills, in addition to fatigue and malaise. It is reassuring that she has no F/C,N/V, diarrhea, SOB, cough, chest pain and notes an improving appetite. Ms. Samaniego is tolerating long-term IV antimicrobial therapy well AEB no SEs and stable lab work. CPK = 26 U/L this week. Patient has an EOT appointment scheduled with ID Attending, Dr. Mccracken, 02/14/2023. Projected end date of IV antibiotic therapy is 02/16/2023. Plan: Continue Daptomycin 800 mg IV daily Continue weekly lab work: CBC w/diff, CMP, CPK, and CRP EOT visit is scheduled Patient's ID Attending, Dr. Stout, aware of above I spent a total of 30 minutes with the patient, including my review of medical records prior to thevisit, clinical decision making, coordination of care and documentation. Gaby Milan APRN, Infectious Disease 01/31/2023 1:00 PM documented in this encounter Plan of Treatment Not on file documented as of this encounter Visit Diagnoses Diagnosis Epidural abscess Intracranial and intraspinal abscess of unspecified site MRSA bacteremia Bacteremia Osteomyelitis of spine Unspecified osteomyelitis, other specified site half-way current use of antibiotics Encounter for long-term (current) use of antibiotics documented in this encounter Care Teams Engineering Systems Analyst Relationship Specialty Start Date End Date Tiffany Houser MD [address] [place] [id number] PCP - General 06/28/10 documented as of this encounter
--- OUTSIDE RECORDS SUMMARY | 2024-01-13 02:13 | XMS_ITS | Continuity of Care Document ---
Author Organization [facility] Address [address] [place] [address] Encounter LTTL_FL FIN NBR [id number] Date(s): 02/11/23 - 02/12/23 [facility] [address] [place] [address]- Discharge Disposition: Left Against Medical Advice Attending Physician: Nick Thomas MD Admitting Physician: Nick Thomas MD Allergies, Adverse Reactions, Alerts No Known Allergies Medications DAPTOmycin 500 mg intravenous injection 0 Refill(s) Start Date: 02/12/23 Status: Ordered gabapentin 300 mg oral capsule 0 Refill(s) Start Date: 02/12/23 Status: Ordered hydrOXYzine hydrochloride 25 mg oral tablet TAKE 1 TABLET BY MOUTH FOUR TIMES DAILY NEEDED FOR ANXIETY Start Date: 02/12/23 Status: Ordered sulfamethoxazole-trimethoprim 800 mg-160 mg oral tablet TAKE 1 TABLET BY MOUTH TWICE DAILY Start Date: 02/12/23 Status: Ordered Mental Status 02/11/23 Eye Opening Response [place] Spontaneous ly Best Verbal Response [place] Oriented Best Motor Response [place] Obeys comman ds [place] Coma Score 15 Results Laboratory List Name Date Troponin-I High Sensitivity (High Sensit ivityTroponin-I) 02/12/23 .Manual Differential (LTTL) 02/12/23 Alcohol Lvl 02/12/23 CBC w/ Diff 02/12/23 Comprehensive Metabolic Panel (CMP) 02/12 Magnesium Level 02/12/23 Troponin-I High Sensitivity (High Sensit ivityTroponin-I) 02/12/23 Most recent to oldest [Reference Range]: 1 2 WBC [4.8-10.8 K/mcL] 8.4 K/mcL (02/12/23 12:33 AM) RBC [4.20-5.40 Million/mcL] 4.05 Million /mcL *LOW* (02/12/23 12:33 AM) Segs Man 87 *NA* (02/12/23 12: AM) Lymph Man [20.5-51.1 %] 8.0 % *LOW* (02/12/23: AM) Ida Man [1.7-9.3 %] 3.0 % (02/12/23: AM) Eos Man [0.00-3.00 %] 1.00 % (02/12/23: AM) BUN [8-26 mg/dL] 12 mg/dL (02/12/23: AM) Glucose Level [74-106 mg/dL] 119 mg/dL *HI* (02/12/23 AM) [place] Man 1 % *NA* (02/12/23 AM) Potassium Level [3.5-5.1 mmol/L] 3.0 mmo l/L *LOW* (02/12/23: AM) MCV [81.0-99.0 fL] 82.5 fL (02/12/23: AM) RBC Morph [Normal] Normal (02/12/23: AM) AST [15-41 IntlUnit/L] 35 IntlUnit/L (02/12/23: AM) ALT [14-54 IntlUnit/L] 24 IntlUnit/L (02/12/23 12: AM) MCHC [32.0-36.0 g/dL] 31.4 g/dL *LOW* (02/12/23 AM) Osmolality [275-295 mOsm/kg] 269 mOsm/kg *LOW* (02/12/23 AM) Sodium Level [134-143 mmol/L] 134 mmol/L (02/12/23: AM) Hct [37.0-47.0 %] 33.4 % *LOW* (02/12/23 AM) Calcium Level [8.9-10.3 mg/dL] 8.2 mg/dL *LOW* (02/12/23 AM) Albumin Level [3.5-5.0 g/dL] 3.1 g/dL *LOW* (02/12/23 12: AM) Protein Total [6.5-8.1 g/dL] 6.9 g/dL (02/12/23 12: AM) MCH [27.0-31.0 pg] 25.9 pg *LOW* (02/12/23 AM) Magnesium Level [1.8-2.5 mg/dL] 1.5 mg/d L *LOW* (02/12/23 AM) Bilirubin Total [0.2-1.2 mg/dL] 0.5 mg/d L (02/12/23: AM) Hgb [12.0-16.0 g/dL] 10.5 g/dL *LOW* (02/12/23 AM) Alk Phos [38-130 IntlUnit/L] 99 IntlUnit /L (02/12/23: AM) MPV [7.4-10.4 fL] 9.5 fL (02/12/23 AM) Ethanol Level [0.00-0.08 g/dL] see comme nt g/dL 1 *NA* (02/12/23: AM) Band Man 0 % *NA* (02/12/23: AM) Platelets [130-400 K/mcL] 186 K/mcL (02/12/23 AM) CO2 [22-32 mmol/L] 25 mmol/L (02/12/23: AM) Chloride Level [98-111 mmol/L] 100 mmol/ L (02/12/23: AM) RDW-CV [11.5-14.5 %] 14.1 % (02/12/23: AM) A/G Ratio [1.0-2.5 g/dL] 0.8 g/dL *LOW* (02/12/23 AM) BUN/Creat Ratio [8.0-20.0] 12.5 (02/12/23 12: AM) Globulin [2.3-3.5 g/dL] 3.8 g/dL *HI* (02/12/23 AM) Slide Review Man Diff (02/12/23:33 AM) Abs Baso Man [0.0-0.2 K/mcL] 0.0 K/mcL (02/12/23 12:33 AM) Abs Eos Man [0.0-0.2 K/mcL] 0.1 K/mcL (02/12/23 12:33 AM) Abs Lymph Man [1.2-3.4 K/mcL] 0.7 K/mcL *LOW* (02/12/23 12:33 AM) Abs Ida Man [0.1-0.6 K/mcL] 0.3 K/mcL (02/12/23 12:33 AM) Abs Neut Man [1.4-6.5 K/mcL] 7.3 K/mcL *HI* (02/12/23 12:33 AM) Creatinine Level [0.44-1.00 mg/dL] 0.96 mg/dL (02/12/23 12:33 AM) Plt Estimation Normal (02/12/23 12: AM) Troponin-I HS [<=12 ng/L] 4 ng/L 2, 3 (02/12/23 1:31 AM) 6 ng/L 4 (02/12/23 12:33 AM) Anion Gap [3.0-12.0] 9.0 (02/12/23 12:33 AM) Baso Man [0.0-0.8 %] 0.0 % (02/12/23 12:33 AM) Instr Ethanol Lvl [<=5 mg/dL] <5 mg/dL (02/12/23 12:33 AM) eGFR CKD-EPI [>=60 mL/min/1.73 m2] 80 mL /min/1.73 m2 (02/12/23 12:33 AM) 1Result Comment: Unable to calculate ratio value as result is less than the linear limit. 2Result Comment: Alcides was down and gave verbal result to Jenn in the ED @[phone]. 3Interpretive Data: The Roseann ACCESS high-sensitivity Troponin I (hsTNI) 99 percentile cutoffs forhealthy adults are 12 ng/L or less for females and 20 ng/L or less for males. SERIAL MEASUREMENT IS HIGHLY RECOMMENDED for the diagnosis or exclusion of Acute Coronary Syndromes(ACS). Please refer to the High-Sensitivity Troponin Algorithm 2022 for guidance. As with all markers of cardiac injury, elevations of hsTnI do not in and of themselves indicate thepresence of an ischemic mechanism. Many other disease states can be associated with elevations via mechanisms different from those that cause injury in patients with ACS. These include trauma (contusion, ablation, pacing); congestive heart failure; pulmonary embolism; kidney failure; and myocarditis. Clinical judgement is necessary to distinguish patients who have ischemic heart disease from those who do not. 4Interpretive Data: The Roseann ACCESS high-sensitivity Troponin I (hsTNI) 99 percentile cutoffs forhealthy adults are 12 ng/L or less for females and 20 ng/L or less for males. SERIAL MEASUREMENT IS HIGHLY RECOMMENDED for the diagnosis or exclusion of Acute Coronary Syndromes(ACS). Please refer to the High-Sensitivity Troponin Algorithm 2022 for guidance. As with all markers of cardiac injury, elevations of hsTnI do not in and of themselves indicate thepresence of an ischemic mechanism. Many other disease states can be associated with elevations via mechanisms different from those that cause injury in patients with ACS. These include trauma (contusion, ablation, pacing); congestive heart failure; pulmonary embolism; kidney failure; and myocarditis. Clinical judgement is necessary to distinguish patients who have ischemic heart disease from those who do not. Radiology Reports * Exam Date Time Procedure Performing Provider Status 02/12/23 12:26 AM XR Chest 1 View Bethel Husain (Verified) Notes: (XR Chest 1 View) Reason For Exam: pain XR Chest 1 View PROCEDURE INFORMATION: Exam: XR Chest Exam date and time: 02/12/2023 12:24 AM Age: 32 years old Clinical indication: Pain; Other: Not specified TECHNIQUE: Imaging protocol: Radiologic exam of the chest. Views: 1 view. COMPARISON: No relevant prior studies available. FINDINGS: Lungs: There is pulmonary venous congestion. There is diffuse interstitial edema. Underlying inflammatory or infectious process not excluded. Pleural spaces: There are no pleural effusions. No evidence of pneumothorax. Heart/Mediastinum: The heart is mildly enlarged. There is prominence of the mediastinum. Bones/joints: The skeletal structures and soft tissues show no evidence of fracture or other acute processes. Soft tissues: The soft tissues of the extrathoracic region are unremarkable. IMPRESSION: Probable mild congestive heart failure. Underlying inflammatory or infectious process not excluded. THIS DOCUMENT HAS BEEN ELECTRONICALLY SIGNED BY NALDO SEPULVEDA MD on 02/12/2023 12:44 AM Final Signed by: Naldo Sepulveda MD Signed (Electronic Signature): 02/12/2023 0:44 am Vital Signs Most recent to oldest [Reference Range]: 1 2 3 Temperature Temporal Artery [36-38 Deg C] 36.7 Deg C (02/11/23 11:57 PM) Peripheral Pulse Rate [60-100 bpm] 101 bpm *HI* (02/12/23 2:17 AM) 121 bpm *HI* (02/12/23 1:00 AM) 111 bpm *HI* (02/12/23 12:42 AM) Heart Rate Monitored [60-100 bpm] 101 bpm *HI* (02/12/23 2:17 AM) 108 bpm *HI* (02/12/23 1:00 AM) Respiratory Rate [12-24 br/min] 18 br/min (02/12/23 2:17 AM) 18 br/min (02/12/23 1:00 AM) 18 br/min (02/12/23 12:42 AM) Blood Pressure [90-140/60-90 mmHg] 105/68mmHg (02/12/23 2:17 AM) 120/64mmHg (02/12/23 1:00 AM) 107/59mmHg (02/12/23 12:42 AM) Mean Arterial Pressure Cuff 79 mmHg (02/12/23 1:00 AM) Weight 120.00 kg (02/11/23 11:57 PM) Weight Dosing 120.00 kg (02/12/23 12:10 AM) Height 175.000 cm (02/11/23 11:57 PM) Height/Length Dosing 175.000 cm (02/12/23 12:10 AM) Body Mass Index 39.000 kg/m2 (02/11/23 11:57 PM) Social History Social History Type Response Tobacco Current everyday tob acco user Tobacco Use:. Sex Physician Emergency department Note * Nick Thomas MD: PERFORM Event Display: ED Note Physician Authored Date: [id number] MESFIN LACKEY :1990 Age:32 years Sex:Female Visit Date:02/11/2023 Basic Information Time Seen: Nick Thomas MD / 02/12/2023 00:14 Chief Complaint 2 x days of CP on and off, ??pt states currently on ABX for MRSA infection in spine History Of Present Illness: Patient??tells me she has been having 2 days of chest pain that is episodic. ??It could be??presentfor seconds to minutes before going. ??Denies any shortness of breath??nausea or diaphoresis. ??Shedenies any history of heart problems denies recent fever chills cough??trauma or other problems. ??At time of evaluation she states the pain is not there Review of Systems: Review of systems negative other than that stated above Physical Exam Vitals & Measurements T:??36.7?C ??(Temporal Artery)?? HR:??101??(Peripheral)?? HR:??101??(Monitored)?? RR:??18?? BP:??105/68?? SpO2:??92%?? HT:??175.000??cm?? WT:??120.00??kg?? BMI:??39.000?? Pain Score:??0?? O2 Therapy:??Room air?? General: Alert and oriented, well nourished, no acute distress. Eye: PERRL, EOMI, normal conjunctiva. HENT: Normocephalic,??normal hearing, moist oral mucosa, no scleral icterus, . Neck: Supple, non-tender, no carotid bruits, no JVD, no lymphadenopathy. No rigidity Lungs: Clear to auscultation and percussion, non-labored respiration. Heart: Normal rate, regular rhythm, no murmur, gallop or edema. Abdomen: Soft, non-tender, non-distended, normal bowel sounds, no masses. Musculoskeletal: Normal range of motion and strength, no tenderness or swelling. Skin: Skin is warm, dry and appropriate for ethnicity, no rashes or lesions. Neurologic: Awake, alert and oriented X4, CN II-XII intact. Psychiatric: Cooperative, appropriate mood and affect. Procedure No Qualifying Data Reexamination/Reevaluation I was notified by nursing staff shortly after??blood work??was??ordered??that patient??eloped Medication Reconciliation Unchanged DAPTOmycin (DAPTOmycin 500 mg intravenous injection) ?? gabapentin (gabapentin 300 mg oral capsule) ?? hydrOXYzine (hydrOXYzine hydrochloride 25 mg oral tablet)TAKE 1 TABLET BY MOUTH FOUR TIMES DAILY ASNEEDED FOR ANXIETY. ?? sulfamethoxazole-trimethoprim (sulfamethoxazole-trimethoprim 800 mg-160 mg oral tablet)TAKE 1 TABLET BY MOUTH TWICE DAILY. Problem List/Past Medical History Ongoing No qualifying data Historical No qualifying data Allergies No Known Allergies Social History Electronic Cigarette/Vaping Electronic Cigarette Use: Unknown/not obtained. Tobacco Current everyday tobacco user Tobacco Use:. Diagnostic Results XR Chest 1 View 02/12/2023 00:44 EDT XR Chest 1 View ?? 02/12/23 00:24:25 PROCEDURE INFORMATION: Exam: XR Chest Exam date and time: 02/12/2023 12:24 AM Age: 32 years old Clinical indication: Pain; Other: Not specified ?? TECHNIQUE: Imaging protocol: Radiologic exam of the chest. Views: 1 view. ?? COMPARISON: No relevant prior studies available. ?? FINDINGS: Lungs: There is pulmonary venous congestion. There is diffuse interstitial edema. Underlying inflammatory or infectious process not excluded. Pleural spaces: There are no pleural effusions. No evidence of pneumothorax. Heart/Mediastinum: The heart is mildly enlarged. There is prominence of the mediastinum. Bones/joints: The skeletal structures and soft tissues show no evidence of fracture or other acute processes. Soft tissues: The soft tissues of the extrathoracic region are unremarkable. ?? IMPRESSION: Probable mild congestive heart failure. Underlying inflammatory or infectious process not excluded. ? THIS DOCUMENT HAS BEEN ELECTRONICALLY SIGNED BY NALDO SEPULVEDA MD on 02/12/2023 12:44 AM ?? Signed By: Naldo Sepulveda MD ECG Sinus tachycardia at 115 no other acute changes Diagnostic Study Interpretation: Chest x-ray shows no obvious disease Lab Results CBC and Differential?? LATEST RESULTS?? WBC?? 02/12/23 00:33?? 8.4?? RBC?? 02/12/23 00:33?? 4.05 ??Low?? Hgb?? 02/12/23 00:33?? 10.5 ??Low?? Hct?? 02/12/23 00:33?? 33.4 ??Low?? MCV?? 02/12/23 00:33?? 82.5?? MCH?? 02/12/23 00:33?? 25.9 ??Low?? MCHC?? 02/12/23 00:33?? 31.4 ??Low?? RDW-CV?? 02/12/23 00:33?? 14.1?? Platelets?? 02/12/23 00:33?? 186?? MPV?? 02/12/23 00:33?? 9.5?? Segs Man?? 02/12/23 00:33?? 87?? Lymph Man?? 02/12/23 00:33?? 8.0 ??Low?? Ida Man?? 02/12/23 00:33?? 3.0?? Eos Man?? 02/12/23 00:33?? 1.00?? Baso Man?? 02/12/23 00:33?? 0.0?? Band Man?? 02/12/23 00:33?? 0?? [place] Man?? 02/12/23 00:33?? 1?? Abs Neut Man?? 02/12/23 00:33?? 7.3 ??High?? Abs Lymph Man?? 02/12/23 00:33?? 0.7 ??Low?? Abs Ida Man?? 02/12/23 00:33?? 0.3?? Abs Eos Man?? 02/12/23 00:33?? 0.1?? Abs Baso Man?? 02/12/23 00:33?? 0.0?? RBC Morph?? 02/12/23 00:33?? Normal?? Plt Estimation?? 02/12/23 00:33?? Normal?? Slide Review?? 02/12/23 00:33?? Man Diff? Routine Chemistry?? LATEST RESULTS?? Sodium Level?? 02/12/23 00:33?? 134?? Potassium Level?? 02/12/23 00:33?? 3.0 ??Low?? Chloride Level?? 02/12/23 00:33?? 100?? CO2?? 02/12/23 00:33?? 25?? Alk Phos?? 02/12/23 00:33?? 99?? AST?? 02/12/23 00:33?? 35?? ALT?? 02/12/23 00:33?? 24?? BUN?? 02/12/23 00:33?? 12?? Glucose Level?? 02/12/23 00:33?? 119 ??High?? Creatinine Level?? 02/12/23 00:33?? 0.96?? BUN/Creat Ratio?? 02/12/23 00:33?? 12.5?? eGFR CKD-EPI?? 02/12/23 00:33?? 80?? Calcium Level?? 02/12/23 00:33?? 8.2 ??Low?? Protein Total?? 02/12/23 00:33?? 6.9?? Albumin Level?? 02/12/23 00:33?? 3.1 ??Low?? Globulin?? 02/12/23 00:33?? 3.8 ??High?? A/G Ratio?? 02/12/23 00:33?? 0.8 ??Low?? Bilirubin Total?? 02/12/23 00:33?? 0.5?? Anion Gap?? 02/12/23 00:33?? 9.0?? Magnesium Level?? 02/12/23 00:33?? 1.5 ??Low?? Osmolality?? 02/12/23 00:33?? 269 ??Low? Cardiac Isoenzymes?? LATEST RESULTS?? Troponin-I HS?? 02/12/23 01:31?? 4? Serum Toxicology?? LATEST RESULTS?? Ethanol Level?? 02/12/23 00:33?? see comment?? Instr Ethanol Lvl?? 02/12/23 00:33?? <5? Electronically Signed on 02/12/23 06:51 AM Nick Thomas MD Patient Care team information Care Team Personnel Name: Nick Thomas MD Position: Physician Member Role: ED Physician Address: Address: [address] [place] [id number] [place] Name: Jenn Chung Position: Nurse Member Role: ED Nurse
--- OUTSIDE RECORDS SUMMARY | 2024-01-13 02:13 | XMS_ITS | Encounter Summary ---
[place] [address] Care Team Providers Care Knitting Machine Operator Helper Name Role Phone Tiffany Houser MD Primary Care Provider [phone] Encounter Details Date Type Department Care Team (Late st Contact Info) Description 04/03/2023 Notes [place] [id number] Pura Malcolm, RN Social History Tobacco Use Types Packs/Day Years Used Date Smoking Tobacco: Every Day Cigarettes Smokeless Tobacco: Never Comments:About 3 cigarettes daily [facility] Inpatient Questions Answer Date Recorded Does Anyone [...] Progress Notes * Pura Malcolm, RN - 04/03/2023 8:27 AM EDT Infectious Disease Department Faxed to [facility] Radiology on 04/03/23 at 0800 Fax confirmation on 04/03/23 at 0815 Document(s) faxed: MRI order documented in this encounter Plan of Treatment Not on file documented as of this encounter Visit Diagnoses Not on filedocumented in this encounter Care Teams Knitting Machine Operator Helper Relationship Specialty Start Date End Date Tiffany Houser MD [address] [place] [address] PCP - General 06/28/10 documented as of this encounter
--- OUTSIDE RECORDS SUMMARY | 2024-01-13 02:13 | XMS_ITS | Encounter Summary ---
[place] [address] Care Team Providers Care Studio Operator Name Role Phone Tiffany Houser MD Primary Care Provider [phone] Reason for Visit * Reason Onset Date Comments Prior Authorization 04/18/2023 Encounter Details Date Type Department Care Team (Late st Contact Info) Description 04/18/2023 Telephone [place] [id number] Esperanza Hammonds RN Prior Authorization Social History Tobacco Use Types Packs/Day Years Used Date Smoking Tobacco: Every Day Cigarettes Smokeless Tobacco: Never Comments:About 3 cigarettes daily [facility] Inpatient Questions Answer Date Recorded Does Anyone [...] encounter Miscellaneous Notes * Telephone Encounter - Esperanza Hammonds RN - 04/18/2023 11:30 AM EDT Prior Authorization: Medication name/dose/directions: Doxycycline Hyclate 150 mg tablet, 1 tab PO BID. Rationale for request: A49.02 Methicillin resistant Staphylococcus aureus infection, unspecified site. Change to oral ABX therapy, secondary to d/c of PICC line. Health plan: [place] Medicaid Date PA initiated: 04/18/2023 Method of PA initiation: RECOMBINETICS Keycode:[id number] Outcome: Pending Quantity approved: Authorization number: Start date: End date: Comments: Added notes: ID Telephone Call / Updated Plan of [...] spinal imaging, and I collaborated with the [facility] nursing team to stop this agent and have her PICC line removed. I communicated with her mom, Angle, on Saturday, and posed the options of stopping antibiotics completely vs. an oral tail to bridge to a repeat MRI. Angle sounded like she favored the latter, which requested to have done locally at [facility]. I was unable to speak with Pura, as she was not with Sabina the time and reportedly does not have a working phone. I asked Angle to have Pura call our clinic back when she was with one of her parents, which Pura did not do. Since then, we have attempted to coordinate an MRI lumbar spine to be performed at [facility], but our and their team have been unable to reach Pura regarding scheduling. I ended up calling and successfully reaching Pura via phone today, but the call became disconnected before we were able to talk beyond an introduction. I then called Agnle again, who informed me that Pura's PICC line was removed earlier this week. I again informed Angle that we would be willing to help facilitate Pura getting a repeat MRI lumbar spine at [facility] and prescribing her additional oral antibiotics to bridge to this being done. However, I told Angle that Pura needs to [place] [facility] with regard to being reachable and engaging [...] Mccracken MD Staff Physician in Infectious Diseases Infectious Diseases Update: Ms. 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 She was bacteremic from 01/03/23-01/04/23, and her first negative blood cultures were on 01/05/23. Shewas treated with IV vancomycin transitioned to IV daptomycin. Looking at her daptomycin dosing of 800mg IV Daily, this corresponds to a dose of 8mg/kg/day based on her adjusted body weight of 96kg. Her original course was scheduled to end on 02/16/23 (6 weeks); however, this was extended out to 10 weeks on 02/14/23 while waiting on a repeat MRI. This decision was based on a CRP of 100.1mg/L on 01/28/23 and 127.9mg/L on 02/21/23. In speaking with Dr. Mccracken who was closely following Ms. Samaniego, there has been ongoing difficulty scheduling a MRI. After Ms. Samaniego didn't show up for her MRI on 03/30/23 and canceled her ID appointment on 04/01/23, it was decided to stop her IV daptomycin after >12 weeks. MRI now scheduled at [facility] on 04/29/23. I was contacted that Ms. Samaniego is hoping to be on an antibiotic. I was unable to reach her, but I spoke with her mom. Patient's cell is [phone]. I willprescribe doxycycline 150mg PO BID (obesity dosing for weight >120kg). I will provide one month so that we can review the MRI. Isaias Finney MD documented in this encounter Plan of Treatment Not on file documented as of this encounter Visit Diagnoses Not on filedocumented in this encounter Care Teams Studio Operator Relationship Specialty Start Date End Date Tiffany Houser MD [address] [place] [address] PCP - General 06/28/10 documented as of this encounter
--- OUTSIDE RECORDS SUMMARY | 2024-01-13 02:13 | XMS_ITS | Encounter Summary ---
[place] [address] Care Team Providers Care Director Of Undergraduate Admissions Name Role Phone Tiffany Houser MD Primary Care Provider [phone] Encounter Details Date Type Department Care Team (Late st Contact Info) Description 04/04/2023 Telephone [place] [id number] Nava Calderon Social History Tobacco Use Types Packs/Day Years Used Date Smoking Tobacco: Every Day Cigarettes Smokeless Tobacco: Never Comments:About 3 cigarettes daily [facility] Inpatient Questions Answer Date Recorded Does [...] encounter Miscellaneous Notes * Telephone Encounter - Nava Calderon - 04/04/2023 3:19 PM EDT Tried calling pt to go over the MRI screening questions. Pt's vm box is full. documented in this encounter Plan of Treatment Not on file documented as of this encounter Visit Diagnoses Not on filedocumented in this encounter Care Teams Director Of Undergraduate Admissions Relationship Specialty Start Date End Date Tiffany Houser MD [address] [place] [address] PCP - General 06/28/10 documented as of this encounter
--- OUTSIDE RECORDS SUMMARY | 2024-01-13 02:13 | XMS_ITS | Encounter Summary ---
[place] [address] Care Team Providers Care Manipulative Therapy Specialist Name Role Phone Tiffany Houser MD Primary Care Provider [phone] Encounter Details Date Type Department Care Team (Late st Contact Info) Description 01/18/2023 Telephone [place] [address] Tiffany Villavicencio Social History Tobacco Use Types Packs/Day Years Used Date Smoking Tobacco: Every Day Cigarettes IPV Inpatient Questions Answer Date Recorded Does [...] * Telephone Encounter - Tiffany Villavicencio - 01/18/2023 2:01 PM EDT CHW reached out to patient via to confirm that her and her family made it home yesterday following discharge, and that her antibiotics were delivered last night as expected. Patient was appreciative of the gas cards she received and reported that it feels amazing to be home. She also confirmed she received her antibiotics. CHW will check in with patient following her appointment on Saturday at 1pm. Tiffany Villavicencio Superintendent Local documented in this encounter Plan of Treatment Not on file documented as of this encounter Visit Diagnoses Not on filedocumented in this encounter Care Teams Manipulative Therapy Specialist Relationship Specialty Start Date End Date Tiffany Houser MD [address] [place] [address] PCP - General 06/28/10 documented as of this encounter
--- OUTSIDE RECORDS SUMMARY | 2024-01-13 02:13 | XMS_ITS | Encounter Summary ---
Author Organization [facility] [place] [address] Care Team Providers Care Preparer Samples And Repairs Name Role Phone Tiffany Houser MD Primary Care Provider [phone] Encounter Details Date Type Department Care Team (Late st Contact Info) Description 04/08/2023 [place] [phone] Isaias Finney MD [facility] [place] [address] Social History Tobacco Use Types Packs/Day Years Used Date Smoking Tobacco: Every Day Cigarettes Smokeless Tobacco: Never Comments:About 3 cigarettes daily [facility] Inpatient Questions Answer Date Recorded Does Anyone [...] encounter Miscellaneous Notes * Telephone Encounter - Isaias Finney MD - 04/08/2023 4:43 PM EDT Infectious Diseases Update: Ms. Samaniego is a 32y/o F PWID who was admitted to [facility] from 01/03/23-01/16/23 with MRSA bacteremia complicated by [...] after >12 weeks. MRI now scheduled at [facility] on 04/29/23. I was contacted that Ms. Samaniego is hoping to be on an antibiotic. I was unable to reach her, but I spoke with her mom. Patient's cell is [phone]. I willprescribe doxycycline 150mg PO BID (obesity dosing for weight >120kg). I will provide one month so that we can review the MRI. Isaias Finney MD documented in this encounter Plan of Treatment Not on file documented as of this encounter Visit Diagnoses Diagnosis Epidural abscess Intracranial and intraspinal abscess of unspecified site MRSA (methicillin resistant Staphylococcus aureus) infection Methicillin resistant Staphylococcus aureus in conditions classified elsewhere and of unspecified site documented in this encounter Care Teams Preparer Samples And Repairs Relationship Specialty Start Date End Date Tiffany Houser MD [address] [place] [address] PCP - General 06/28/10 documented as of this encounter
--- OUTSIDE RECORDS SUMMARY | 2024-01-13 02:13 | XMS_ITS | Encounter Summary ---
[place] [address] Care Team Providers Care Occupational Health Rn Name Role Phone Tiffany Houser MD Primary Care Provider [phone] Encounter Details Date Type Department Care Team (Late st Contact Info) Description 04/03/2023 Notes [place] [phone] Pura Malcolm, RN Social History Tobacco Use Types Packs/Day Years Used Date Smoking Tobacco: Every Day Cigarettes Smokeless Tobacco: Never Comments:About 3 cigarettes daily [facility] Inpatient Questions Answer Date Recorded Does Anyone [...] Notes * Pura Malcolm, RN - 04/03/2023 1:49 PM EDT Infectious Disease/OPAT Program PICC Removal External Location PICC line was removed on 04/01/23 PICC line was removed by [facility] infusion suite documented in this encounter Plan of Treatment Not on file documented as of this encounter Visit Diagnoses Not on filedocumented in this encounter Care Teams Occupational Health Rn Relationship Specialty Start Date End Date Tiffany Houser MD [address] [place] [address] PCP - General 06/28/10 documented as of this encounter
--- OUTSIDE RECORDS SUMMARY | 2024-01-13 02:13 | XMS_ITS | Encounter Summary ---
Author [facility] [place] [address] Care Team Providers Care Oiler And Greaser Name Role Phone Tiffany Houser MD Primary Care Provider [phone] Encounter Details Date Type Department Care Team (Late st Contact Info) Description 01/17/2023 Notes Only [place] [phone] Ena Barrientos RN Social History Tobacco Use Types Packs/Day Years Used Date Smoking Tobacco: Every Day Cigarettes [facility] Inpatient Questions Answer Date Recorded Does [...] Notes * Ena Barrientos RN - 01/17/2023 1:11 PM EDTSummary: OPAT Education Infectious Disease/OPAT Program PWID Enrollment in OPAT Program Teaching Visit Met with patient at bedside to discuss discharge on IV ABX. Patient given and reviewed OPAT package including OPAT order, PICC line care including dressing changes weekly & prn, weekly & prn labs, potential issues, what they might mean and who to contact. Reviewed roles and responsibilities of Infusion Suite and infusion vendor. Contact information for ID, Infusion Suite and infusion vendor given to pt. Discussed f/u appointments in ID 5[facility] clinic, telephone and tele health. Patient Agreement for Safe Use of Home Intravenous Antibiotics reviewed and signed by patient. Patient Agreement scanned into eDH. Intranasal narcan given to the patient to take home at discharge. Educated patient on signs and symptoms of overdose, when to contact emergency services, and how to administer it; patient verbalized understanding. Pt verbalized understanding. All questions answered. IV & PO ABX Medications: Daptomycin 800 mg IV q 24 hr Start/anticipated end date: 01/05/23 to 02/16/23 Infusion Suite: [facility] Infusion Suite for PICC care & labs Infusion vendor: [facility] IV Access: PICC 4 Fr. single lumen Bard Power catheter was placed into the right basilic vein over a 0.018 inch guidewire using modified seldinger technique and fluoroscopy. Arm circumference was 44 cm at 2 cm above the insertion site. Final catheter length (with trimming): 50 cm Internal: 50 cm External: 0 cm Placed: 01/16/23 Plan: discharge on OPAT program when medically ready. F/u: Weekly labs 01/31: ID [facility] [place] 02/14: ID Dr. Brittany Nance. OPAL Barrientos, RN, ACM-RN OPAT Program documented in this encounter Plan of Treatment Not on file documented as of this encounter Visit Diagnoses Not on filedocumented in this encounter Care Teams Oiler And Greaser Relationship Specialty Start Date End Date Tiffany Houser MD [address] [place] [address] PCP - General 06/28/10 documented as of this encounter
--- OUTSIDE RECORDS SUMMARY | 2024-01-13 02:14 | XMS_ITS | Encounter Summary ---
Author Organization Count Includes [facility] [address] Care Team Providers Care Trophy Assembler Name Role Phone Tiffany Houser MD Primary Care Provider Reason for Referral * Consultation (Routine) - Closed Specialty Diagnoses / Procedures Referred By Contac t Referred To Contact Infectious Diseases Diagnoses Epidural abscess QT prolongation Bacteremia MRSA (methicillin resistant Staphylococcus aureus) Staphylococcal arthritis of right knee Helga Stout MD [facility] [place] [address] Helga Stout MD [facility] [place] [address] Referral ID Status Reason Start Date Expiration Date V isits Requested Visits Authorized [id number] Closed Assume Subset of Care 01/16/2023 01/16/2024 1 1 Reason for Visit * Reason Comments Back Pain Epidural abscess fro m [facility] for neurosurgery Hospital Transfer * Auth/Cert (Routine) Specialty Diagnoses / Procedures Referred By Contac t Referred To Contact Diagnoses Epidural abscess Procedures ER REYI Fab Cross MD [facility] [place] [address] [facility] Referral ID Status Reason Start Date Expiration Date Visits Re quested Visits Authorized [id number] 1 1 Encounter Details Date Type Department Care Team (Latest Contact Info) Description 01/03/2023 9:42 PM EDT - 01/17/2023 1:36 PM EDT Hospital Encounter Surgical Unit Level 2 Wing D at [place] [phone] Amadou Gao MD [facility] [place] [address] [place] [address] [place] [address] [place] [address] [place] [address] Epidural abscess; QT prolongation; Bacteremia; MRSA (methicillin resistant Staphylococcus aureus); Staphylococcal arthritis of right knee Discharge Disposition: Home with VNA Social History Tobacco Use Types Packs/Day Years Used Date Smoking Tobacco: Every Day Cigarettes Tobacco Cessation:Ready to Q uit: Not Asked; Counseling Given: Not Answered DH IPV Inpatient Questions Answer Date Recorded [...] Sign Reading Time Taken Comments Blood Pressure 156/80 01/17/2023 11:16 AM EDT Pulse 80 01/17/2023 7:47 AM EDT Temperature 37 ??C (98.6 ??F) 01/17/2023 11: 16 AM EDT Respiratory Rate 12 01/17/2023 11:1 6 AM EDT Oxygen Saturation 91% 01/17/2023 11: 16 AM EDT Inhaled Oxygen Concentration - - Weight 142.3 kg (313 lb 11.4 oz) 2022 12:21 AM EDT Height 177.8 cm (5' 10) 01/04/2023 12: 21 AM EDT Body Mass Index 45.01 01/04/2023 12:21 AM EDT documented in this encounter Discharge Summaries * Brittany Shahid PA - 01/17/2023 12:11 PM EDT Discharge Summary Patient Name: Mesfin Lackey Patient Age: 32 y.o. Language: Filipino Race: White Ethnicity: Not nor Admit date: 01/03/2023 Discharge date and time: 01/16/2023 1900 Attending Physician: Joao Lynch MD Discharge Provider: IGGY Porter Follow-up Recommendations for Providers: - Continue to increase methadone dosing by 10 mg per day from 150 mg 01/17 to 200 mg final dose. Dosing is at [facility] - Daptomycin 800 mg q 24 hours from 01/16/23-02/16/23 with OPAT - weekly CBC w/diff, CMP, CRP and CPK while on Daptomycin with picc dressing change, care, and labsat [facility]. Inpatient Provider Contact Information: For questions regarding this document or issues relating to this hospitalization on the Medical Service, please contact your inpatient physician through the [facility] Commercial Makeup Artist . Issues afterhours and on weekends will be handled by the Hospitalist staff on-call. Discharge Diagnoses (Hospital Problems) and Secondary Diagnoses (Chronic Problems): Active Hospital Problems Diagnosis Epidural abscess Resolved Hospital Problems No resolved problems to display. Active Non-Hospital Problems Diagnosis CIS - Entered not Verified CIS - Cervicalgia 723.1 CIS - Lumbar Spine Pain 724.2 Operations/Major Procedures: Operations: Other Major Procedures: N/A History of Presentation: Per H&P 01/03/2023: Mesfin Lackey is a 32 y.o. female with hx of IVDU transferring from [facility] with L3-S1 epidural abscess. She reports acute onset lower back pain starting yesterday. Initially presented to [facility] where MRI showed L3-S1 and she was transferred here for neurosurgical evaluation. Denies fevers, chills, lower extremity weakness, numbness. Currently reporting 10/10 low back pain. Hospital Course: Mesfin Lackey is a 32 y.o. female with hx of IVDU transferring from [facility] with L3-S1 epidural abscess. She was evaluated by ID on 01/04 and recommended continue broad spectrum abx therapy. Neurosurgery team consulted and initially felt surgery would not be a benefit. She did have progressive numbness weakness in her BLE, and neurosurgery was ready to take her to the OR, however on day of surgery her numbness/weakness improved and she declined surgical intervention. She continued to improve on IV vancomycin, and her pain was much better controlled as her methadone was uptitrated. 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 She initially presented with acute onset low back and RLE pain found on MRI to have evidence of L4-S1 discitis/osteomyelitis associated with epidural abscess and MRSA bacteremia. She received vancomycin and cleared bacteremia on 01/05 and a TTE was negative. Repeat imaging showed interval expansion of large dorsal epidural abscess from L3 to L5 produces severe thecal sac narrowing and compression of cauda equina nerve roots. IR guided drainage of the abscess was deferred as there were felt to be more risks due to the location of collection. Pain gradually improved and the patient declined surgery after talking to the neurosurgery teamon 01/10. She does not have any new neurologic deficits on exam. Given her overall stable condition plan for at least 6 weeks of parenteral therapy for epidural abscess and MRSA bacteremia (from 01/05-02/16). She was on vancomycin q 8 hours from 01/05-01/16 when she was switched to Daptomycin in preparation of discharge. Given history of recent IV drug use there was a MDT meeting with BIT team involvement to determine candidacy for OPAT. This meeting was held on 01/16 at 1100 and she was approved for OPAT-will D/C on 800 mg Daptomycin q 24 hours. Acute pain service: This team was consulted to optimize pain control. They started patient on a ketamine drip. In addition, patient's pain was treated with methadone, dilaudid sliding scale, gabapentin, tizanidine, lidocaine patches x 3, ketorolac, and ibuprofen. Ketamine was discontinued by APS on01/11 has her pain gradually improved. Her Dilaudid was weaned down to off as we up-titrated her Methadone. Her Methadone dose of 200mg daily was confirmed with [facility]. We consulted BIT to assist with recommendations for Methadone management. We increased her dose by 10mg per day while monitoring herqtc routinely. Her final dose of Methadone was 150 mg on 01/17 and she will continue to increase by 10 mg daily until goal dose of 200 mg daily is reached. #Opiate use disorder (cocaine, fentanyl), with abuse, no manifestations Patient had hx of IVDU last used on 01/02. Methadone titrated up to home dose of 200mg qd which wasverified with the [facility] [phone] on 01/09. See above for plan # Transaminitis Likely in the setting of ketamine infusion. Values improved and were monitored with LFTs labs. # Hypokalemia (Resolved) Electrolytes were repleted as needed. Vital Signs at Discharge: BP: 156/80, Heart Rate: 80, Temp: 37 ??C (98.6 ??F), Resp: 12, BMI (Calculated): 45.01 Height: 177.8 cm (5' 10) (01/04/23 0021) Weight: (!) 142.3 kg (313 lb 11.4 oz) (01/04/23 0021) Functional and Cognitive Status: Independent IADL and BADL Important Studies and Lab Data: Labs: Last 3 wbc, hgb, hct plt Recent Labs 01/17/23 0215 01/16/23 0225 01/15/23 0300 WBC 5.5 5.8 7.5 HGB 10.5* 10.8* 10.4* HCT 33.5* 34.2* 33.1* PLATELET 296 350 334 Last 3 Lytes Recent Labs 01/17/23 0215 01/16/23 0225 01/15/23 0300 NA 139 139 140 K 4.3 4.1 3.9 CL 102 102 102 CO2 29 28 27 BUN 18 17 14 CREATININE 0.77 0.84 0.74 Last 3 LFTs Recent Labs 01/11/23 0341 01/09/23 0142 01/07/23 0611 AST 28 22 73* ALT 51* 51* 81* ALKPHOS 118* 137* 147* BILITOT <0.2* <0.2* 0.3 BILIDIR 0.1 0.1 0.1 Studies: Results for orders placed or performed during the hospital encounter of 01/03/23 XR Chest One View (Exam End: 01/03/2023 10:27 PM) Impression Low lung volumes, otherwise, no acute cardiopulmonary process. Thank you for letting us participate in the care of this patient. If you are a health care provider and have any questions regarding this report, please contact the number below. For patients who have questions please contact the health reproductive healthcare assistant that requested your imaging first. Request for 2nd read MR Spine (Exam End: 01/04/2023 12:29 AM) Impression 1. Septic right L4-5 facet joint, with associated epidural phlegmon and abscess that contributes to severe canal stenosis at L4-5. 2. No evidence of discitis/osteomyelitis. 3. Paraspinous inflammatory changes without abscess. Thank you for letting us participate in the care of this patient. If you are a health care provider and have any questions regarding this report, please contact the number below. For patients who have questions please contact the health reproductive healthcare assistant that requested your imaging first. Lumbar Spine wwo Contrast (Exam End: 01/04/2023 7:46 PM) Impression Findings suggestive of right L4-5 septic joint. Interval expansion of large dorsal epidural abscess from L3 to L5 produces severe thecal sac narrowing and compression of cauda equina nerve roots. Thank you for letting us participate in the care of this patient. If you are a health care provider and have any questions regarding this report, please contact the number below. For patients who have questions please contact the health reproductive healthcare assistant that requested your imaging first. Knee 1-2 Views Right (Generic) (Exam End: 01/05/2023 1:26 PM) Impression Moderate right knee osteoarthropathy without acute abnormality. Thank you for letting us participate in the care of this patient. If you are a health care provider and have any questions regarding this report, please contact the number below. For patients who have questions please contact the health reproductive healthcare assistant that requested your imaging first. PICC Placement Over 5 Years with Imaging Guidance (IV Team) (Exam End: 01/07/2023 10:48 AM) Impression Right upper extremity PICC with appropriate placement Thank you for letting us participate in the care of this patient. If you are a health care provider and have any questions regarding this report, please contact the number below. For patients who have questions please contact the health reproductive healthcare assistant that requested your imaging first. Chest One View (Exam End: 01/10/2023 5:25 PM) Impression Right-sided PICC ends at the mid SVC. Normal cardiopulmonary findings. Thank you for letting us participate in the care of this patient. If you are a health care provider and have any questions regarding this report, please contact the number below. For patients who have questions please contact the health reproductive healthcare assistant that requested your imaging first. PICC Placement Over 5 Years with Imaging Guidance (IV Team) (Exam End: 01/16/2023 3:05 PM) Impression FINDINGS/IMPRESSION: Intraprocedural frontal radiograph of the mediastinum demonstrates a right PICC line, with the catheter tip projected at the superior cavoatrial junction. I have personally reviewed the image(s) and the resident's interpretation and agree with the findings, Kacey Hall MD at 01/16/2023 3:17 PM Thank you for letting us participate in the care of this patient. If you are a health care provider and have any questions regarding this report, please contact the number below. For patients who have questions please contact the health reproductive healthcare assistant that requested your imaging first. Pending Studies and Lab Data: CK for baseline, then weekly CBC w/diff, CMP, CRP and CPK Discharge Conditions/Prognosis: stable/good Discharge to: Home with VNA and OPAT Updated Allergies/ADRs: No Known Allergies Immunizations Given this Hospitalization: There is no immunization history on file for this patient. Discharge Medications: Your Medications New Medications Dose Details acetaminophen 325 mg tablet Commonly known as: Tylenol Take 3 tablets by mouth every 6 hours. 975 mg Quantity: 30 tablet Refills: 1 DAPTOmycin 500 mg Recon Soln Commonly known as: Cubicin 800 mg, 132 mL/hr, IV, Q24H Quantity: 1 each Refills: 0 hydrOXYzine 25 mg tablet Commonly known as: Atarax Take 1 tablet by mouth 4 times daily as needed for Anxiety. 25 mg Quantity: 30 tablet Refills: 12 naloxone 1 mg/mL Syringe Commonly known as: Narcan For opioid overdose,spray 1 mL in each nostril. Repeat after 3-5 minutes if no or minimal response.Call 911 before administration. Quantity: 4 mL Refills: 0 Continued medications, unchanged Dose Details gabapentin 300 mg capsule Commonly known as: Neurontin Take 600 mg by mouth 3 times daily. 600 mg Refills: 0 ibuprofen 800 mg tablet Commonly known as: Advil Take 800 mg by mouth every 6 hours as needed for Pain. 800 mg Refills: 0 melatonin 5 mg tablet Take 15 mg by mouth nightly as needed. 15 mg Refills: 0 METHADONE ORAL Take by mouth. Refills: 0 nicotine polacrilex 4 mg gum Commonly known as: Nicorette Take 4 mg by mouth as needed. 4 mg Refills: 0 Smoking Status at Discharge: Social History Tobacco Use Smoking Status Every Day Types: Cigarettes Smokeless Tobacco Not on file Instructions Given to Patient at Discharge: Patient Instructions Instructions on Discharge to Home Why you were hospitalized: Epidural abscess MRSA bacteremia Specific instructions related to your condition: Complete 6 weeks of IV antibiotic therapy (from 01/05-02/16). You have also been working on getting back to home dose of methadone after acute pain crisis. You have been increasing your dose by 10 mg per day. LAST DOSE: 150 mg at 1006 on 01/17. Next dose should be 160 mg on 01/18 at [facility]. Call your doctor or seek medical attention if you develop the following - chest pain, shortness of breath, fever, cough, weakness in an arm or leg Activity level: no restrictions Diet: no change in previous diet Driving: as before hospitalization. Please do not drive while on narcotics. Shower/Bath: permitted Home oxygen therapy: N/A Your Medications (see discharge med list for full instructions): Your Inpatient Doctor: AMADOU GAO CALEB J LURIE, FAROOQ ROBBINS, JOAO CARNDALL Your Primary Care Provider: Tiffany Houser MD For questions regarding this document or issues relating to this hospitalization on the Medical Service, please contact your inpatient physician through the [facility] Commercial Makeup Artist . Issues afterhours and on weekends will be handled by the Hospitalist staff on-call. Upcoming appointments: You have a hospital follow up appointment scheduled with your primary care provider, Dr. Tiffany Houser, Wednesday January 25, 2023 11:30. You will follow up at [facility] infusion suite for PICC dressing changes and care, labs etc on Mondays, with next appt on Saturday01/21/23 at 1pm. Follow-up: Future Appointments Date Time Provider Department Center 01/31/2023 1:00 PM Gaby Milan APRN [facility] ID [id number] [facility] 02/14/2023 3:00 PM Brittany Mccracken MD [facility] ID [id number] [facility] The Department of Hospital Medicine hopes you have a safe and stress free transition out of the hospital. As an additional safeguard to help this transition happen seamlessly we have created a tool to help us stay in communication in case there are any questions or concerns after your discharge. Ifyou are not being discharged to another care setting, where they will take over your medical care, please anticipate a brief questionnaire from our Department that will help us ensure you do not haveany issues with your discharge and are as safe and healthy as possible. This questionnaire will be sent out at 9 am on the next business day after your discharge, and willbe delivered via text primarily but also email if texting is not possible. If there do happen to beany issues or concerns once you leave [facility], we apologize for any undue stress this may cause. Please do not hesitate to call your PCP office or seek further medical assistance if there are any immediate concerns about your health. This questionnaire is not meant to provide immediate access to a physician, but has been created to help us ease the transition out of the hospital. Someone from our department will reach out after the questionnaire is completed if you have raised any concerns, or have requested a callback, to help ensure your concerns are addressed and a plan is madeto keep you safe and healthy. Thank you in advance for your time completing this questionnaire. General Instructions Orthopaedic Discharge Instructions Below are general guidelines. You will need to be aware that these guidelines are only general, each person???s recovery may vary. If you have any questions after reading this sheet, please call us. 1. Problem: Concern for Septic arthritis R knee 2. Recommendations: You are Weight bearing as tolerated in the right lower extremity. Remember to keep your right lower extremity elevated as much as possible to decrease swelling and control pain. 3. Precautions: Please contact your physician if you have continued and worsening R knee pain Please contact your physician or present to the emergency department if you have any of the following: Fevers, redness, drainage, excessive pain, numbness, tingling, weakness 4. Follow-up: You will not require a follow-up appointment with orthopaedics unless symptoms fail to improve. 5. Contact Info: If you have any questions or concerns, please call the following: Orthopaedic Clinic Saturday thru Saturday 8am - 5pm: [phone] Orthopaedic Physician nutrition aides teacher - After 5pm and Weekends: [phone] Your care today was provided by Rowena Lechuga MD Substance Use Treatment, Harm-Reduction, and Relapse Prevention Resources Residential Treatment: [facility] [address] [place], [place] [id number] [address] [address] Intensive Outpatient Program: [facility] [address] [place], [place] [id number] Individual Counseling: [facility] [address] [place] [address] [facility] [address] [facility] [place] [address] [facility] [address] [place] [address] Offers EMDR Therapy You may also search www.ABSMaterials.NUVETA or Stratasan for therapists in your area. About EMDR Therapy Eye Movement Desensitization and Reprocessing (EMDR) therapy is an extensively researched, effective psychotherapy method proven to help people recover from trauma and other distressing life experiences, including PTSD, anxiety, depression, and panic disorders. EMDR therapy does not require talkingin detail about the distressing issue or completing homework between sessions. EMDR therapy, ratherthan focusing on changing the emotions, thoughts, or behaviors resulting from the distressing issue, allows the brain to resume its natural healing process. EMDR therapy is designed to resolve unprocessed traumatic memories in the brain. For many clients, EMDR therapy can be completed in fewer sessions than other psychotherapies. www.emdria.org/kqhjg-rhic-abaaivd/ www.emdria.org/vmug-pj-zqkx-therapist/ Medication Assisted Therapy: [address] [place] [address] [facility] [address] [place] [address] [place] [address] Peer Support Groups Alcoholics Anonymous (AA) [place]: , www.nhaa.net Narcotics Anonymous (NA) [place]: , www.gmana.org Community [facility] Support [facility] [address] [address] Online AA and NA Meetings AA, NA, Refuge Recovery, SMART Recovery www.Crzyfish AA Video Meetings www.aa-intergroup.org/directory_audio-video.php AA Text Chat Meetings www.aa.intergroup.org/directory.php NA Video Meetings www.virtual-na.org/meetings NA Text Chat Meetings Www.neverjohannaneclub.org SMART Recovery Meetings via Zoom 5:00-6:00pm, free and open to all To join Zoom meeting: Visit www.Savvy Services Click on calendar on top of toolbar Find the correct meeting date and time Click the zoom link and enter password provided Additional Substance Use Treatment Resources Www.Torrecom Partnersddictionservices.org www.healthverKira Talentt.gov/alcohol-drugs www.nymozkc450.iScience Interventional/ (Search for Substance Use) www.iiMonde/ Www.rethinkingdrinking.niaaa.nih.gov/ www.samhsa.gov/kaagpkaiac-waeqjxjb-ywsmzcmzx/sowvhfpgoiwk-tmjgjbw-wvig/treatment -practitioner-lay out technician Harm-Reduction Resources Mobile Didasco. For more information about receiving supplies: including syringe exchange, fentanyl test strips, and naloxone, or to schedule an appointment: [place] clients call and leave a message for Adrienne (ext. [phone]) or Edwin Rivera (ext. [phone]). [place] clients call to speak with Edwin Peres. www.harmreduction.org/resource-center/vgaj-agmepcynt-nnvu-you/ Warning Illicit drugs do not come with an ingredients list. Many illicit drugs are laced with fentanyl and other drugs. Powdered fentanyl looks just like many other drugs. It is commonly mixed with drugs like heroin, cocaine, and methamphetamine and made into pills that are made to resemble other prescription opioids.Fentanyl-laced drugs are extremely dangerous, and many people may be unaware that their drugs are laced with fentanyl. Fentanyl itself is frequently laced with benzodiazepines (depressant) and Xylazine (sedative) knownas ???benzo dope?tranq?? blackout dope. These additives often impart a blue or purple hue to the original substance. These additives DO NOT respond to Narcan and significantly increase the risk of overdose and . Suboxone Emergency Override There is an emergency override requirement on all medications that require prior insurance authorization. If you experience any issues picking up your suboxone prescription at the pharmacy you may request an override. They are required to provide the quantity of suboxone sufficient for 72 hours while the prior insurance authorization is being approved. Mental Health Crisis National Mental Health Crisis Line: Dial [address].gov/find-help/988 Online Stress Reduction Resources www.Memoir Systems.NUVETA/videos-features/videos/fpetxtrcb-dinwcwgtl-0-7-8-breath/ www.Azure Minerals.org/2013/abszbuflb-kndngwvuf-xnyadxj-moment/ www.Pellet Technology [employer]/ www.mindiSpye.org/ www.Capture Media.org/ Employment Agency [employer] [address] [place] [address] [address] [place] [address] secondBuzzSpiceelmojaved@Jugo Providing an opportunity for successful employment and recovery by empowering individuals to managechallenges because of substance use addiction and past convictions. Future Appointments and Orders Future Appointments and Orders Future Appointments Provider Department Dept Phone 01/31/2023 1:00 PM Gaby Milan APRN Infectious Disease at [facility] Arrive at: [place] [phone] To view instructions for your video visit, click here, or visit this website: [email or web address] If you have not previously downloaded the Count Includes [facility] patient portal software, [employer], or the Neema gennaro, please do so by clicking one of these links below or searching in your device's [employer] store. For all desktops/laptops; for Android devices; for Apple/iOS devices FAQs: Join Video Visit button not connecting? - This may be due to pop-up blockers. - Click this link to see: How to Disable Pop-Up Block for myDH Video Visits Zoom asking for a meeting password? - Exit out of the Zoom program and try the link again 02/14/2023 3:00 PM Brittany Mccracken MD Infectious Disease at [facility] Arrive at: Chief Cloth Finishing Range Operator Area [phone] Future Orders Complete By Expires OPAT: Order / Recommendation for Post Discharge IV Antibiotic Management [INV326 CPT(R)] As directed Process Instructions: If no progress note charted, please enter Clinical details in comments. Scheduling Instructions: Comments: Please Fax all results to: [facility] Program Infectious Disease Section [facility], [facility], [place] [address] FAX: After hours, please contact the Infectious Disease Physician nutrition aides teacher at . If this order was signed greater than 72 hours prior to [facility] discharge, please call to confirm the accuracy of this order. If concerned about opioid overdose, administer patient's own naloxone 4mg (contents of 1 nasal spray) as a single dose in one nostril PRN for signs of opioid overdose (depressed respirations or consciousness). May repeat as needed q2-3 minutes in alternating nostrils until medical assistance arrives. Line care instructions Adult CVC/PICC Flush protocol with medication infusion (SASH): Before Med: 10ml Normal Saline After Med: 10ml Normal Saline then 3 ml Heparin (10 units/ml) Additional Lumens: Flush 2x's daily & PRN 10ml Normal Saline then 3ml Heparin (10 units/ml) Flush protocol after blood withdrawal: Before: 10 ml Normal Saline Draw blood After: 20 ml Normal Saline then 3 ml Heparin (10 units/ml) Flush without med (each lumen): Flush 2x's daily & prn: 10 ml Normal Saline then 3 ml heparin (10 units/ml) residential for medication administration/white sugar supervisor and catheter care/maintenance authorized. CVC/PICC Dressing Change weekly and PRN Please use CHG or Bio Patch Catheter Occlusion Management Instill reconstituted Cathflo 2mg per instillation (based on the volume of the catheter lumen). Mayrepeat x1 per occlusion incident. RN: Please care for PICC line including dressing changes weekly and prn. Please draw labs every Saturday and prn and fax results to [facility] at [phone]. Please draw labs off PICC line. Please see [facility] for lab draw details. Please RN visit for IV ABX teaching and ongoing assessment. Questions: ID Diagnosis: Bacteremia, Osteomyelitis, L3-L5 epidual abscess, Right L4-L5 septic facet arthritis,right knee septic arthritis Microorganisms being treated: MRSA Antibiotic Allergies: No known antibiotic allergies Antibiotic: Daptomycin 800 mg IV q 24 hr (based on ~8mg/kg/day) Special Instructions: Start date: 01/05/2023 Anticipated stop date: 02/16/2023 Labs: Q Saturday: CBC/Diff, CMP Q Saturday Inflammatory CRP Q Saturday CPK Last documented weight (kg): 142.3 kg (313 lb 11.4 oz) Last documented height (cm): 177.8 cm (5' 10) Attending Responsible for IV Antimicrobials: Helga Stout Following Provider: Referral for Outpatient Antibiotics [HGS0006 CPT(R)] As directed Process Instructions: Scheduling Instructions: Comments: Office of Care Management/Diecast Machine Operator(CM) Home IV Antibiotic Therapy Referral Note. Report received from Dr. Rboledo that patient will require continued home IV antibiotic therapy after discharge from the hospital. Met with patient/family to discuss vendor and home health RN agency choices for home IV antibiotic therapy. Reviewed Home Infusion Vendors and Home Health Agencies that serve patient's address and accept patient's insurance. Home Health Agency: Patient [facility] referral [facility] [address] PHONE: [phone] FAX: [phone] Referrals sent via [facility]. Home Infusion Vendor: Patient requested referral to [address] , [place] [address] Toll Free: Nursing Pharmacy Referrals sent via [facility]. Diabetic Status: Patient not a diabetic IV access: Type of line: PICC, single lumen, right basillic, placed 01/16/23 Date placed: 01/16/23 Questions: Vendor / contact information: [place] Patient location post discharge: home Service requested: IV ABX Start date: Responsible MD post discharge contact info: PCP Discharge References/Attachments PICC (Peripherally Inserted Central Catheter) (Filipino) documented in this encounter Discharge Instructions * Discharge Instructions* Brittany Shahid PA - 01/07/2023 8:49 AM EDT Orthopaedic Discharge Instructions Below are general guidelines. You will need to be aware that these guidelines are only general, each person???s recovery may vary. If you have any questions after reading this sheet, please call us. 1. Problem: Concern for Septic arthritis R knee 2. Recommendations: You are Weight bearing as tolerated in the right lower extremity. Remember to keep your right lower extremity elevated as much as possible to decrease swelling and control pain. 3. Precautions: Please contact your physician if you have continued and worsening R knee pain Please contact your physician or present to the emergency department if you have any of the following: Fevers, redness, drainage, excessive pain, numbness, tingling, weakness 4. Follow-up: You will not require a follow-up appointment with orthopaedics unless symptoms fail to improve. 5. Contact Info: If you have any questions or concerns, please call the following: Orthopaedic Clinic Saturday thru Saturday 8am - 5pm: [phone] Orthopaedic Physician nutrition aides teacher - After 5pm and Weekends: [phone] Your care today was provided by Rowena Lechuga MD Substance Use Treatment, Harm-Reduction, and Relapse Prevention Resources Residential Treatment: [id number] [id number] Intensive Outpatient Program: [facility] [address] [place] [address] Individual Counseling: [place] [id number] [place] [address] [facility] [address] [place] [address], [address] [place] [address] Nola Taylor, [facility] [address] [place], [place] Offers EMDR Therapy You may also search www.psychologytoday.com or Stratasan for therapists in your area. About EMDR Therapy Eye Movement Desensitization and Reprocessing (EMDR) therapy is an extensively researched, effective psychotherapy method proven to help people recover from trauma and other distressing life experiences, including PTSD, anxiety, depression, and panic disorders. EMDR therapy does not require talkingin detail about the distressing issue or completing homework between sessions. EMDR therapy, ratherthan focusing on changing the emotions, thoughts, or behaviors resulting from the distressing issue, allows the brain to resume its natural healing process. EMDR therapy is designed to resolve unprocessed traumatic memories in the brain. For many clients, EMDR therapy can be completed in fewer sessions than other psychotherapies. www.emdria.org/pwrwe-ksln-hruovpl/ www.emdria.org/fgsg-fr-xgln-therapist/ Medication Assisted Therapy: [address] [place] [address] [place] [address] Peer Support Groups Alcoholics Anonymous (AA) [place]: , www.Aprimoaa.net Narcotics Anonymous (NA) [place]: , www.Minoryx Therapeuticsana.org Community Peer Support Center [facility] [address] [place] [address] Online AA and NA Meetings AA, NA, Refuge Recovery, SMART Recovery www.Crzyfish AA Video Meetings www.aa-intergroup.org/directory_audio-video.php AA Text Chat Meetings www.aa.intergroup.org/directory.php NA Video Meetings www.Ortho Neuro Managementna.org/meetings NA Text Chat Meetings Www.Uni-Power Groupaloneclub.org SMART Recovery Meetings via Zoom 5:00-6:00pm, free and open to all To join Zoom meeting: Visit www.Savvy Services Click on calendar on top of toolbar Find the correct meeting date and time Click the zoom link and enter password provided Additional Substance Use Treatment Resources Www.vtaddictionservices.org www.health[place].gov/alcohol-drugs www.[place] [address].org/ (Search for Substance Use) www.psychologySimpleshowday.NUVETA/ Www.rethinkingdrinking.niaaa.nih.gov/ www.samhsa.gov/exwkruehnb-cdieuewi-xpjupbshg/gpgmyffjhhym-htvbtnb-vkpn/treatment -practitioner-lay out technician Harm-Reduction Resources Mobile [place]. For more information about receiving supplies: including syringe exchange, fentanyl test strips, and naloxone, or to schedule an appointment: [place] clients call and leave a message for Adrienne (ext. 105) or Edwin Rivera (ext. 104). [place] clients call to speak with Edwin Peres. www.harmreduction.org/resource-center/kdpu-ldhjpzxnh-dtyo-you/ Warning Illicit drugs do not come with an ingredients list. Many illicit drugs are laced with fentanyl and other drugs. Powdered fentanyl looks just like many other drugs. It is commonly mixed with drugs like heroin, cocaine, and methamphetamine and made into pills that are made to resemble other prescription opioids.Fentanyl-laced drugs are extremely dangerous, and many people may be unaware that their drugs are laced with fentanyl. Fentanyl itself is frequently laced with benzodiazepines (depressant) and Xylazine (sedative) knownas ???benzo dope?tranq?? blackout dope. These additives often impart a blue or purple hue to the original substance. These additives DO NOT respond to Narcan and significantly increase the risk of overdose and . Suboxone Emergency Override There is an emergency override requirement on all medications that require prior insurance authorization. If you experience any issues picking up your suboxone prescription at the pharmacy you may request an override. They are required to provide the quantity of suboxone sufficient for 72 hours while the prior insurance authorization is being approved. Mental Health Crisis National Mental Health Crisis Line: Dial 988 www.grande r[facility] hospitala.gov/find-help/988 Online Stress Reduction Resources www.Memoir Systems.NUVETA/videos-features/videos/lzhhnniah-ljdgpqojk-0-7-8-breath/ www.themindfulword.org/2013/zfwuwekpq-mjwfwxpmp-pqewuot-moment/ www.headsKitman Labsce.NUVETA/ www.mindful.org/ www.freemindfulness.org/ Employment Agency [employer] [address] [place] [address] [email or web address] Providing an opportunity for successful employment and recovery by empowering individuals to managechallenges because of substance use addiction and past convictions. * Patient Instructions* Brittany Shahid PA - 01/14/2023 7:26 AM EDT Instructions on Discharge to Home Why you were hospitalized: Epidural abscess MRSA bacteremia Specific instructions related to your condition: Complete 6 weeks of IV antibiotic therapy (from 01/05-02/16). You have also been working on getting back to home dose of methadone after acute pain crisis. You have been increasing your dose by 10 mg per day. LAST DOSE: 150 mg at 1006 on 01/17. Next dose should be 160 mg on 01/18 at [facility]. Call your doctor or seek medical attention if you develop the following - chest pain, shortness of breath, fever, cough, weakness in an arm or leg Activity level: no restrictions Diet: no change in previous diet Driving: as before hospitalization. Please do not drive while on narcotics. Shower/Bath: permitted Home oxygen therapy: N/A Your Medications (see discharge med list for full instructions): Your Inpatient Doctor: AMADOU GAO, FAB THURMAN, FAROOQ ROBBINS, JOAO CRANDALL Your Primary Care Provider: Tiffany Houser MD For questions regarding this document or issues relating to this hospitalization on the Medical Service, please contact your inpatient physician through the [facility] Commercial Makeup Artist . Issues afterhours and on weekends will be handled by the Hospitalist staff on-call. Upcoming appointments: You have a hospital follow up appointment scheduled with your primary care provider, Dr. Tiffany Houser, Wednesday January 25, 2023 11:30. You will follow up at [facility] infusion suite for PICC dressing changes and care, labs etc on Mondays, with next appt on Saturday01/21/23 at 1pm. Follow-up: Future Appointments Date Time Provider Department Center 01/31/2023 1:00 PM Gaby Milan APRN [facility] ID [id number] [facility] 02/14/2023 3:00 PM Brittany Mccracken MD [facility] ID [id number] [facility] The Department of Hospital Medicine hopes you have a safe and stress free transition out of the hospital. As an additional safeguard to help this transition happen seamlessly we have created a tool to help us stay in communication in case there are any questions or concerns after your discharge. Ifyou are not being discharged to another care setting, where they will take over your medical care, please anticipate a brief questionnaire from our Department that will help us ensure you do not haveany issues with your discharge and are as safe and healthy as possible. This questionnaire will be sent out at 9 am on the next business day after your discharge, and willbe delivered via text primarily but also email if texting is not possible. If there do happen to beany issues or concerns once you leave [facility], we apologize for any undue stress this may cause. Please do not hesitate to call your PCP office or seek further medical assistance if there are any immediate concerns about your health. This questionnaire is not meant to provide immediate access to a physician, but has been created to help us ease the transition out of the hospital. Someone from our department will reach out after the questionnaire is completed if you have raised any concerns, or have requested a callback, to help ensure your concerns are addressed and a plan is madeto keep you safe and healthy. Thank you in advance for your time completing this questionnaire. * Attachments The following attachments cannot be sent through Care Everywhere. * PICC (Peripherally Inserted Central Catheter) (Filipino) documented in this encounter Medications at Time of Discharge Medication Sig Dispensed Refills Start Date End Date levonorgestreL (Mirena) 21 mcg/24 hours (8 yrs) 52 mg IUD As directed 11/18/2014 nicotine (Nicoderm CQ) 21 mg/24 hr Patch 24 hr daily. 01/03/2023 acetaminophen (Tylenol) 325 mg tablet Take 3 tablets by mouth every 6 hours. 30 tablet 1 01/17/2023 hydrOXYzine (Atarax) 25 mg tablet Take 1 tablet by mouth 4 times daily as needed for Anxiety. 30 tablet 12 01/17/2023 naloxone (Narcan) 1 mg/mL Syringe For opioid overdose,spray 1 mL in each nostril. Repeat after 3-5 minutes if no or minimal response. Call 911 before administration. 4 mL 01/17/2023 gabapentin (Neurontin) 300 mg capsule Take 600 mg by mouth 3 times daily. 07/09/2022 nicotine polacrilex (Nicorette) 4 mg gum Take 4 mg by mouth as needed. 07/11/2022 ibuprofen (Advil) 800 mg tablet Take 800 mg by mouth every 6 hours as needed for Pain. melatonin 5 mg tablet Take 15 mg by mouth nightly as needed. methadone HCl (METHADONE ORAL) Take by mouth. DAPTOmycin (Cubicin) 500 mg Recon Soln 800 mg, 132 mL/hr, IV, Q24H 1 each 01/17/2023 02/14/2023 documented as of this encounter Progress Notes * Brittany Shahid PA - 01/17/2023 1:36 PM EDT Hospital Medicine - Attending Day of Discharge Documentation Discharge diagnosis Active Hospital Problems Diagnosis Epidural abscess Resolved Hospital Problems No resolved problems to display. Secondary Issues Active Non-Hospital Problems Diagnosis CIS - Entered not Verified CIS - Cervicalgia 723.1 CIS - Lumbar Spine Pain 724.2 I have personally seen and examined the patient and they are ready for discharge. I spent >30 minutes (Day of Discharge Code 65915) involved in the final examination of the patient, discussion of the hospital stay, instructions for continuing care to all relevant caregivers, and preparation of discharge records, prescriptions and referral forms. Plans Discharge to home Follow-up scheduled with [facility] infusion suite, infectious disease, PCP Please see the Discharge Summary for complete details of any medication changes and additional plans. * Kell Isaac RN - 01/17/2023 12:38 PM EDT Pt awake and alert, all VSS. Received thorough education on self-administering IV antibiotics. Pt stated that she knows to get her dressing changed and labs drawn every Saturday at 1pm. group home worker and BIT team notified in regards to a situation with pt family member, pt not in distress and still able to safely d/c home. RN will give d/c instructions and go over them and then take her to discharge lounge to be picked up by . MAXIMILIANO 1L PICC clean and intact, order placed to d/c with PICC. * Lilly White RN - 01/17/2023 10:59 AM EDT Infusion Resource Center Follow up Note: Referral to : [facility] VNA declined -pt will have PICC dressing changes and lab draws done at [facility] Infusion Suite on Mondays starting at 1pm. Hospital teaching will occur 01-17-23 @ 930-1030AM Delivery of IV supplies will occur 01-17-23 @8PM To be delivered to patient verified home address. Infusion Resource Center [phone] * Kell Isaac RN - 01/16/2023 7:03 PM EDT Pt has hx of IVDU, but unfortunately d/t current situation and infection, pt needs mult weeks IV abx. Pt tried to leave AMA prior this week, so Abigail SMITH spoke with team to create a safety plan for patient. Risks of using PICC for anything other than IV abx were shared with patient. Pt understandsrisks of not being treated with abx properly. RN shared concern with team about sending pt home with PICC, but this appears to be the best plan available. Plan is for pt to go home tomorrow am on Daptomycin instead of Vanco, pt is aware. Waiting for VNA and OPAT details to be set up. PT showered, feeling better and seems very motivated to take care of herself. New PICC placed, single lumen. Will need V abx teaching tomorrow as well. No other concerns home. All vss. * Yoni Toscano - 01/16/2023 4:22 PM EDT Instructional Systems Design Consultant Encounter Note Patient Name: Mesfin Lackey : [id number] MR#: [id number] Admit Date: 01/03/2023 9:42 PM Hospital Day 13 days Narrative:Visited to introduce and assess acceptance of Instructional Systems Design Consultant services. Patient was not available as medical staff was there. Assessment: Intervention and Outcome: Follow-up: Time in Direct Care: Yoni Toscano 01/16/2023 * Rito Christiansen MD - 01/16/2023 3:29 PM EDT OPAT INTAKE: Diagnosis: Bacteremia and Osteomyelitis, Antibiotic Type: IV, Organism(s): MRSA, Antibiotic(s) being taken: Daptomycin (800 mg IV q 24 hours) With a start date of 01/05/2023, and anticipated end date of 02/16/2023. Desired labs: CBC w/diff, CMP, CRP and CPK. Lab frequency: Weekly Other: Desired timing of end of therapy appointment: Week of: 02/11/2023. Other speciality appointments to coordinate with: No Dialysis patient?: No Imaging needed?: No Preferred provider for end of therapy visit: Rito Christiansen/ Helga Stout * Gaby Milan APRN - 01/16/2023 12:51 PM EDTSummary: Multidisciplinary Meeting ..Inpatient Multidisciplinary Review of PWID/SHREYA Patients with Infections Primary Medical Team Patient name: Mesfin Lackey Status of medical condition: Ms. 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 She initially presented with acute onset low back and RLE pain and found on MRI to have evidence of L4-S1 discitis/Osteomyelitis associated with epidural Abscess and MRSA Bacteremia. She has been receiving Vancomycin and cleared Bacteremia on 01/05/2023 and a TTE was negative for evidence of Endocarditis. Repeat imaging showed interval expansion of large dorsal epidural Abscess from L3 to L5 with severe thecal sac narrowing and compression of cauda equina nerve roots. IR guided drainage of the Abscess was deferred as there were felt to be more risks due to the location of collection. Per the Primary Team, the patient is doing very well. Her blood cultures have cleared, VSS and afebrile. Her pain is now well-managed on Methadone dosing and she no longer requires opioids or muscle relaxants to control pain. Readiness for discharge: She is currently medically ready for discharge Planned home pain medication regimen: No opioids or muscle relaxants needed. Patient's pain is well-controlled with her Methadone daily dosing. Is the patient discussing leaving the hospital before providers believe they are ready: Patient is anxious to discharge and would like very much to leave by this evening, however, she understands that there is a process to setting up OPAT including vendor, VNA, PICC line, etc. Per the Primary Team,patient is willing to do whatever needs to be done for a safe discharge. ID Team ID Diagnosis: Bacteremia, Osteomyelitis and Epidural abscess Any further workup or source control needed?: No work-up pending Most ideal treatment plan (if injection history not considered)?: Vancomycin IV with pharmacy guided dosing (AUC 400-600) for at least 6 weeks of therapy (from 01/05-02/15/2023) Per Pharmacy, the frequency needs to be 3x per day OPAT RN Any prior previous OPAT course history (with details if so)?: No BIT Substance use diagnosis and status (frequency, last use, delivery method): Opiod use disorder Other substances used but not meeting use order diagnosis: Time from last use to admission: Within 1 week Status of substance use: Early recovery (< 3 months) Is patient ready for SHREYA recovery and willing to engage in treatment (include patient's goal/perspective & housing environment)?: Yes Potential/finalized plans for addiction treatment (include MAT): [facility]. 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 Both she and her have OUD and he has been on Suboxone and injecting on top of that. It is not clear if he is going to abstain from injecting. Of note, patient's parents live very near to her and are involved in her care and well-being. OPAT Enrollment Criteria Review Strict Contra-Indications Lack of stable housing during the period on IV antibiotics (can be temporary during this time): No Behavior that suggests patient will not be able to productively engage long-term with team for careonce outpatient: No Current incarceration: No Relative Contra-Indications Cardiac surgery this admission: No Severe stimulant, benzo, or alcohol use disorder: No Lack of support system at home: No Co-habitants actively using substances at home: Yes Patient's also has OUD and is on Suboxone. He had been injecting on top of that and it is unclear if he is still doing so. No access to reliable communication method: No Inclusion Criteria Patient interested and willing to participate: Yes Patient mental status allows full understanding of potential risks/benefits: Yes Engaged in treatment for addiction including medication: Yes Home discharge otherwise expected (e.g., no PT/OT rehab needs): Yes Safe home environment (running water, refrigeration, heat in winter, non- abusive): Yes Age >= 18: Yes Agreeable to sharing information among care providers: Yes An interdisciplinary meeting attended by representatives from the primary medical/surgical team, IDteam, BIT team, Nursing, Case Management/Social Work, OPAT team, NELC, and VNA was convened to discuss the coordination of care of Mesfin Lackey around the treatment plan for IV antibiotics, substance use disorder, and candidacy for enrollment into OPAT. After careful review of this patient's medical conditions and hospital course, engagement with his/her medical treatment plan and addiction care, and consideration of risk factors for high risk of treatment failure in an outpatient setting, the interdisciplinary team determined: Decision on enrollment to home IV antibiotics: Yes * Rito Christiansen MD - 01/16/2023 11:52 AM EDT Active ID issues: MRSA bacteremia Large L3-L5 epidural abscess R L4-L5 septic facet arthritis R knee septic arthritis SUBJECTIVE Pain well controlled, wants to go home 24 HOUR EVENTS: -No active issues overnight OBJECTIVE I reviewed vital signs from the past 24 hours: Temperature 36.9, heart rate 76, blood pressure 98/55, on room air Exam: General: no acute distress CV: regular rate and rhythm, no obvious murmurs Resp: clear to auscultation bilaterally; no wheezing, crackles, or rhonchi Abd: soft, non-distended, non-tender on palpation Ext: Right upper extremity PICC line in place, mild tenderness lateral to sacral spine ROS: 10 point review of system negative except as above I have reviewed Labs: Last 3 wbc, hgb, hct plt Recent Labs 01/16/2322401/15/23 0300 01/14/23 0029 WBC 5.8 7.5 6.8 HGB 10.8* 10.4* 10.7* HCT 34.2* 33.1* 33.8* PLATELET 350 334 327 Last 3 Lytes Recent Labs 01/16/2322401/15/23 0300 01/14/23 0029 NA 139 140 140 K 4.1 3.9 4.1 CL 102 102 104 CO2 28 27 28 BUN 17 14 13 CREATININE 0.84 0.74 0.66* Last CRP, SEDRATE Recent Labs 01/16/2322401/11/23 0341 01/09/23 0945 CRP 24.5* < > 215.4* SEDRATE -- -- 117* < > = values in this interval not displayed. Antibiotics: Vancomycin(01/04-) Microbiology: 01/03 -01/04 blood cultures - MRSA 01/05-01/07 blood cultures - no growth 01/08 blood cultures - no growth at 5 days 01/09 blood cultures -no growth at 5 days Lines/Roa: 01/07 R Basilic vein PICC line Imaging: No interval imaging IMPRESSION: A 32-year-old female with history of IVDU on chronic methadone who was admitted with acute onset back pain. CRP 190, blood culture positive for MRSA and imaging showed L4-S1 discitis/osteomyelitis with epidural abscess. TTE negative for vegetation. Bacteremia cleared on 01/05. Repeat imaging showed expansion of large dorsal epidural abscess from L3-L5 with severe thecal narrowing and compression of the cauda equina roots. Not a candidate for intervention per IR sec. To difficulty of access. Patient currently is on vancomycin. Patient is on Q12 dosing but clearance is high and will need Q8 dosing. For easier discharge disposition we recommend switching to Daptomycin 800mg(8 mg/kg) IV q 24 hours( Adjusted BW 98 kg). EOT 02/16/23. RECOMMENDATIONS: Discontinue vancomycin Start daptomycin 800 mg IV every 24 hours, EOT 02/16/2022 Check CK to document baseline Monitor for toxicity of daptomycin by checking at least weekly CBC w/ diff, CMP and CK I have discussed this case with ID attending Dr. Helga Christiansen MD Infectious Diseases Fellow- [id number] Pager: [phone] 01/16/2023 11:52 AM Associated attestation - Helga Stout MD - 01/16/2023 9:27 PM EDT I discussed the case of Ms Lackey on rounds today with Dr. Christiansen and I confirmed the charted history, and reviewed her microbiology, CBC, CMP and radiological studies as follows: MRI examination of the lumbar spine Microbiology: 01/03 -01/04 blood cultures - MRSA 01/05-01/07 blood cultures - no growth 01/08 blood cultures - no growth at 5 days 01/09 blood cultures -no growth at 5 days Concern for need for further source control, but since she cleared her blood cultures and is a candidate for home therapy, we recommend switch from vancomycin (which in this patient needs to be giventhrice daily) to daptomycin once daily, monitor weekly CPK for potential toxicity. This is a potentially life/limb threatening infection which will need 6-8 weeks of IV therapy as well as close follow up by infectious diseases. I anticipate examining the patient tomorrow with Dr. Christiansen. [facility] for consulting infectious diseases. * Yoni Toscano - 01/15/2023 3:54 PM EDT Instructional Systems Design Consultant Encounter Note Patient Name: Mesfin Lackey : [id number] MR#: [id number] Admit Date: 01/03/2023 9:42 PM Hospital Day 12 days Narrative:Visited to introduce and assess acceptance of Instructional Systems Design Consultant services. Patient was sleeping and I will visit an other time. Assessment: Intervention and Outcome: Follow-up: Time in Direct Care: Yoni Toscano 01/15/2023 * Abigail Hernandez, LUIS - 01/15/2023 11:04 AM EDT Hospital Medicine Daily Progress Note Admit Date: 01/03/2023 Hospital Day 12 days Active Hospital Problems Diagnosis Epidural abscess Resolved Hospital Problems No resolved problems to display. 24 Hour Events: - Working with ID and BIT for safe D/C plan - weaned hydromorphone to 2 mg 01/15, next dose wean 01/17- will not D/C with this - increased methadone dosing to 65 BID today - plan to switch to once daily dosing with increase on 01/16 to facilitate discharge - continues on IV vancomycin Micro: 01/03 -01/04 blood cultures - MRSA 01/05-01/07 blood cultures - NGTD at day 01/08 blood cultures - no growth at day 5 01/09- blood cultures no growth at day 4 ROS: back and hip pain-improving No anorexia No cough, shortness of breath No chest pain, palpitation No abdominal pain, N/V No hematuria, dysuria No constipation or diarrhea No rashes or skin changes No sore throat, nasal congestion Physical Exam Vitals Range last 24 hrs Temperature Temp: [36.6 ??C (97.9 ??F)-37 ??C (98.6 ??F)] Heart Rate Heart Rate: [86] Blood Pressure BP: (101-143)/(45-63) Respiratory Rate Resp: [18] SpO2 SpO2: [97 %] Intake/Output Summary (Last 24 hours) at 01/15/2023 1104 Last data filed at 01/15/2023 0400 Gross per 24 hour Intake 1810 ml Output 2500 ml Net -690 ml No data found. BMI: Weight: (!) 142.3 kg (313 lb 11.4 oz) (01/04/23 0021) BMI (Calculated): 45.01 BMI Classification: Morbid Obesity Estimated Creatinine Clearance: 165.7 mL/min (based on SCr of 0.74 mg/dL). General: Pleasant adult female, resting comfortably in bed, pain continues to improve HEENT: Normocephalic, atraumatic, symmetric. Sclera anicteric. Cardiovascular: Regular rhythm. No murmurs, rubs, gallops. Respiratory: Lungs clear to auscultation. No wheeze, rhonchi, rales. Abdominal: No lesions observed on abdomen. Bowel sounds audible and normoactive. No tenderness to palpation. No hepatosplenomegaly or other masses detected. Lower Extremities: No pedal edema. Motor and sensation: 5/5 upper/lower strength b/l - LT sensation intact x 4 - Improved strength on R foot demonstrated on dorsiflexion and plantar flexion Neuro: CN III-XII intact. Sensation to touch is normal in bilateral upper and lower extremities. Cerebellar function intact as demonstrated by [id number]-[id number] test. Studies reviewed in eDH. Remarkable for the following: LABS: Recent Labs 01/15/23 0300 01/14/23 0029 01/13/23 0415 WBC 7.5 6.8 7.0 HGB 10.4* 10.7* 10.6* HCT 33.1* 33.8* 33.6* PLATELET 334 327 260 Recent Labs 01/15/23 0300 01/14/23 0029 01/13/23 0415 NA 140 140 140 K 3.9 4.1 4.2 CL 102 104 103 CO2 27 28 26 BUN 14 13 11 CREATININE 0.74 0.66* 0.72 Recent Labs 01/11/23 0341 01/09/23 0142 AST 28 22 ALT 51* 51* ALKPHOS 118* 137* BILITOT <0.2* <0.2* BILIDIR 0.1 0.1 Recent Labs 01/15/23 0300 01/14/23 0029 01/13/23 0415 CALCIUM 9.3 8.8 8.9 PHOS 5.6* 4.7* 5.0* No results for input(s): PT, INR, PTT in the last 168 hours. No results for input(s): CK, TROPONINT in the last 168 hours. FSBG Trend No results for input(s): POCGLU in the last 72 hours. MICRO: No results for input(s): URINECULTURE in the last 720 hours. No results for input(s): GRAMSTAIN, BFCX, LOWERRESPCX, TISSUECX in the last 720 hours. Recent Labs 01/06/23 1030 01/07/23 0040 01/07/23 0051 01/08/23 0106 01/08/23 0107 01/09/23 1509 BLOODCX No growth at 5 days. No growth at 5 days. No growth at 5 days. No growth at 5 days. No growth at 5 days. No growth at 5 days. No growth at 5 days. ECG: Recent Labs 01/14/23 1235 DIAGLINE Normal sinus rhythm Right bundle branch block Abnormal ECG When compared with ECG of 13-JAN-2023 09:24, No significant change was found Confirmed by MD Long, Jose ([id number]) on 01/14/2023 2:35:18 PM QTCCALC 482 VASCULAR: No results for input(s): VBTEXTRPT in the last 720 hours. IMAGING: Results for orders placed or performed during the hospital encounter of 01/03/23 XR Chest One View (Exam End: 01/03/2023 10:27 PM) Impression Low lung volumes, otherwise, no acute cardiopulmonary process. Thank you for letting us participate in the care of this patient. If you are a health care provider and have any questions regarding this report, please contact the number below. For patients who have questions please contact the health reproductive healthcare assistant that requested your imaging first. Request for 2nd read MR Spine (Exam End: 01/04/2023 12:29 AM) Impression 1. Septic right L4-5 facet joint, with associated epidural phlegmon and abscess that contributes to severe canal stenosis at L4-5. 2. No evidence of discitis/osteomyelitis. 3. Paraspinous inflammatory changes without abscess. Thank you for letting us participate in the care of this patient. If you are a health care provider and have any questions regarding this report, please contact the number below. For patients who have questions please contact the health reproductive healthcare assistant that requested your imaging first. Lumbar Spine wwo Contrast (Exam End: 01/04/2023 7:46 PM) Impression Findings suggestive of right L4-5 septic joint. Interval expansion of large dorsal epidural abscess from L3 to L5 produces severe thecal sac narrowing and compression of cauda equina nerve roots. Thank you for letting us participate in the care of this patient. If you are a health care provider and have any questions regarding this report, please contact the number below. For patients who have questions please contact the health reproductive healthcare assistant that requested your imaging first. Knee 1-2 Views Right (Generic) (Exam End: 01/05/2023 1:26 PM) Impression Moderate right knee osteoarthropathy without acute abnormality. Thank you for letting us participate in the care of this patient. If you are a health care provider and have any questions regarding this report, please contact the number below. For patients who have questions please contact the health reproductive healthcare assistant that requested your imaging first. PICC Placement Over 5 Years with Imaging Guidance (IV Team) (Exam End: 01/07/2023 10:48 AM) Impression Right upper extremity PICC with appropriate placement Thank you for letting us participate in the care of this patient. If you are a health care provider and have any questions regarding this report, please contact the number below. For patients who have questions please contact the health reproductive healthcare assistant that requested your imaging first. Chest One View (Exam End: 01/10/2023 5:25 PM) Impression Right-sided PICC ends at the mid SVC. Normal cardiopulmonary findings. Thank you for letting us participate in the care of this patient. If you are a health care provider and have any questions regarding this report, please contact the number below. For patients who have questions please contact the health reproductive healthcare assistant that requested your imaging first. Inpatient Medications: Scheduled methadone 65 mg Oral 2 times per day Followed by [START ON 01/16/2023] methadone 70 mg Oral 2 times per day Followed by [START ON 01/17/2023] methadone 75 mg Oral 2 times per day Followed by [START ON 01/18/2023] methadone 80 mg Oral 2 times per day Followed by [START ON 01/19/2023] methadone 85 mg Oral 2 times per day Followed by [START ON 01/20/2023] methadone 90 mg Oral 2 times per day Followed by [START ON 01/21/2023] methadone 95 mg Oral 2 times per day Followed by [START ON 01/22/2023] methadone 100 mg Oral 2 times per day tiZANidine 2 mg Oral Q6H enoxaparin 40 mg Subcutaneous Nightly gabapentin 600 mg Oral TID acetaminophen 975 mg Oral Q6H GUANACO lidocaine 3 patch Transdermal Q24H vancomycin 1.75 g Intravenous Q8H sodium chloride 0.9 % (flush) 5 mL Intravenous BID sodium chloride 0.9 % (flush) 5 mL Intravenous BID nicotine 1 patch Transdermal Daily And Patch Verification 1 patch Transdermal BID Continuous infusions: PRN: HYDROmorphone OR [DISCONTINUED] HYDROmorphone, hydrALAZINE, hydrOXYzine, ibuprofen, traZODone, sodium chloride 0.9 % (flush), lidocaine, sodium chloride 0.9 % (flush), lidocaine Assessment: Mesfin Lackey is a 32 y.o. female with hx of IVDU transferring from [facility] with L3-S1 epidural abscess. Interval history Per Neurosurgery, due to her RLE weakness progression, she met surgical criteria and initially planned for OR 01/10. However after discussion with patient, and her improved pain and improvement in strength, patient would like to defer surgery for now, and notify team of any new or worsening neurologic symptoms including new worsening weakness, numbness, tingling, radicular pain / bowel/bladder retention/incontinence. Continue with medical management now Ketamine gtt discontinued per APS, will work to up-titrate Methadone back to home dose and wean off Dilaudid. Will need discuss with BIT/ID for MDT to plan for 6 week OPAT safely given history of injection drug use. She is eager to get home to her family, if she is not an appropriate candidate for OPAT, it is verylikely she would request AMA discharge. Working to coordinate meeting with ID, BIT and team to determine safe D/C plan at this time. She is agreeable to stay in the hospital a few more days to allow time to create best plan of care. It is likely this meeting will happen 01/16 at 1100. Plan: #L4-S1 Discitis w/Epidural abscess #MRSA Bacteremia # Back pain, acute # Concern for Septic RIGHT knee - Found on MRI to have evidence of L4-S1 discitis/osteomyelitis associated with epidural abscess. - Neurosurgery consult: -01/08 Patient reports subjective R leg numbness with R knee pain. -01/09 Initially planned for OR with neurosurgery, however, per NSGY her symptoms are improving, andthe patient wants to defer surgery, continue medical management. - Neuro IR consult for questions about possible drainage.--> small collection near the right L4-5 facet joint that we might be able to aspirate on 01/07 - 01/04 MRI L spine - Confirmed discitis/osteomyelitis with epidural abscess - 01/07 IR neuro feels risks outweigh the benefits. Decided against aspiration and feel conservativemanagement is the best management for the time being. ID Consult: - Continue Vancomycin (from 01/05-02/15) -TTE without vegetation -Micro: 01/03 -01/04 blood cultures - MRSA 01/05-01/07 blood cultures - NGTD at day 5 01/08 blood cultures - no growth at day 5 01/09- blood cultures no growth at day 4 APS Consult: - S/p Ketamine gtt, discontinued 01/11 - Wean off Tizanidine- 01/15 q 8 hours PRN - Wean off Dilaudid - Titrate Methadone to home dose 200mg daily #OUD - Hx of IVDU last used on 01/02 - She takes 200mg qd which was verified with the [facility] [phone] on 01/09 (in addition to fentanyl usage) - Psychiatry/BIT consult: -Appreciate recs to reincorporate methadone dose of 200mg qd -Up titrate by 10mg QD and qtc check every other day -01/15 QTc 482 -Weaning off Dilaudid by 2mg per day - last adjustment 01/15, now at 2 mg q 4 PRN # Transaminitis - Likely in the setting of ketamine infusion. Improving though - Continue following labs Q48 hours -Ortho consulted -X-rays of knee ordered. appreciate their assistance- no effusion or enough fluid from aspiration to culture IV access/ MIVF PIV Tubes/ Drains DVT prophylaxis Lovenox PT/OT/[employer] Wound care Anticipated Disposition TBD Team Pager (MD Coverage 07/01): [phone] Family Update 01/14 at bedside PCP Tiffany Houser MD Diet regular Abigail Hernandez APRN 01/15/2023 * Tash Gimenez RN - 01/14/2023 5:41 PM EDT OUTCOME EVALUATION NOTE: OUTCOME SUMMARY: Pt A&Ox4, pain controlled with dilaudid and tylenol, VSS, continent of urine/stool, showered today, patient issues/goals/needs met PLAN MOVING FORWARD: DC planning Abx therapy Pain control INDIVIDUALIZED FALL PREVENTION INTERVENTIONS: High Fall Risk Patient-specific fall risk factors per assessment: [current deficits]: 2+ active diagnosis, Ivs, walker Assistance [level of assistance required for transfers and ambulation]: independently with walker Supervision [direct monitoring required during toileting and ADLs]: independent with standby as needed Surveillance [continuous indirect monitoring]: masimo, hourly rounding, room near nurses station, nurse knowledge exchange at bedside, yellow fall band on, environmental modifications such as clutterfree areas, tubing secured, bed low, lighting adjusted, nonskid socks when OOB, bed wheels locked, call light within reach, upper side rails X2, ID bands on Patient-specific fall prevention interventions for sensory deficits provided, if applicable: [X] N/A CARE PLAN GOAL OUTCOME EVALUATION: Care plan implemented and continuing * Abigail Hernandez APRN - 01/14/2023 11:01 AM EDT Hospital Medicine Daily Progress Note Admit Date: 01/03/2023 Hospital Day 11 days Active Hospital Problems Diagnosis Epidural abscess Resolved Hospital Problems No resolved problems to display. 24 Hour Events: - had wanted to leave AMA this AM, now agreeable to working on safe D/C plan - continuing to taper up methadone and wean dilaudid - QOD EKGs during methadone increase - plan for MDT meeting to determine safe D/C plan and OPAT candidacy- if not candidate, high likelihood of AMA D/C. - Continues on IV vancomycin Micro: 01/03 -01/04 blood cultures - MRSA 01/05-01/07 blood cultures - NGTD at day 5 01/08 blood cultures - no growth at day 5 01/09- blood cultures no growth at day 4 ROS: back and hip pain-improving No anorexia No cough, shortness of breath No chest pain, palpitation No abdominal pain, N/V No hematuria, dysuria No constipation or diarrhea No rashes or skin changes No sore throat, nasal congestion Physical Exam Vitals Range last 24 hrs Temperature Temp: [36.4 ??C (97.5 ??F)-37.2 ??C (99 ??F)] Heart Rate Heart Rate: -- Blood Pressure BP: (97-142)/(73-95) Respiratory Rate Resp: [16-18] SpO2 SpO2: [92 %-99 %] Intake/Output Summary (Last 24 hours) at 01/14/2023 1106 Last data filed at 01/14/2023 1040 Gross per 24 hour Intake 480 ml Output 4650 ml Net -4170 ml No data found. BMI: Weight: (!) 142.3 kg (313 lb 11.4 oz) (01/04/23 0021) BMI (Calculated): 45.01 BMI Classification: Morbid Obesity Estimated Creatinine Clearance: 185.8 mL/min (A) (based on SCr of 0.66 mg/dL (L)). General: Pleasant adult female, resting comfortably in chair HEENT: Normocephalic, atraumatic, symmetric. Sclera anicteric. Cardiovascular: Regular rhythm. No murmurs, rubs, gallops. Respiratory: Lungs clear to auscultation. No wheeze, rhonchi, rales. Abdominal: No lesions observed on abdomen. Bowel sounds audible and normoactive. No tenderness to palpation. No hepatosplenomegaly or other masses detected. Lower Extremities: No pedal edema. Motor and sensation: 5/5 upper/lower strength b/l - LT sensation intact x 4 - Improved strength on R foot demonstrated on dorsiflexion and plantar flexion Neuro: CN III-XII intact. Sensation to touch is normal in bilateral upper and lower extremities. Cerebellar function intact as demonstrated by [id number]-bcxxog test. Studies reviewed in eDH. Remarkable for the following: LABS: Recent Labs 01/14/23 0029 01/13/235 01/12/23 0045 WBC 6.8 7.0 6.4 HGB 10.7* 10.6* 10.4* HCT 33.8* 33.6* 33.0* PLATELET 327 260 316 Recent Labs 01/14/23 0029 01/13/235 01/12/23 0045 NA 140 140 140 K 4.1 4.2 3.8 CL 104 103 103 CO2 28 26 28 BUN 13 11 9 CREATININE 0.66* 0.72 0.66* Recent Labs 01/11/23 0341 01/09/23 0142 AST 28 22 ALT 51* 51* ALKPHOS 118* 137* BILITOT <0.2* <0.2* BILIDIR 0.1 0.1 Recent Labs 01/14/23 0029 01/13/235 01/12/23 004 CALCIUM 8.8 8.9 9.0 PHOS 4.7* 5.0* 5.1* No results for input(s): PT, INR, PTT in the last 168 hours. No results for input(s): CK, TROPONINT in the last 168 hours. FSBG Trend No results for input(s): POCGLU in the last 72 hours. MICRO: No results for input(s): URINECULTURE in the last 720 hours. No results for input(s): GRAMSTAIN, BFCX, LOWERRESPCX, TISSUECX in the last 720 hours. Recent Labs 01/06/23 1030 01/07/23 0040 01/07/23 0051 01/08/23 0106 01/08/23 0107 01/09/23 1509 BLOODCX No growth at 5 days. No growth at 5 days. No growth at 5 days. No growth at 5 days. No growth at 5 days. No growth at 4 days. No growth at 4 days. ECG: Recent Labs 01/13/23 0924 DIAGLINE Normal sinus rhythm Right bundle branch block Abnormal ECG When compared with ECG of 12-JAN-2023 13:59, No significant change was found Confirmed by MD Paulina, Ping ([id number]) on 01/14/2023 6:45:28 AM QTCCALC 460 VASCULAR: No results for input(s): VBTEXTRPT in the last 720 hours. IMAGING: Results for orders placed or performed during the hospital encounter of 01/03/23 XR Chest One View (Exam End: 01/03/2023 10:27 PM) Impression Low lung volumes, otherwise, no acute cardiopulmonary process. Thank you for letting us participate in the care of this patient. If you are a health care provider and have any questions regarding this report, please contact the number below. For patients who have questions please contact the health reproductive healthcare assistant that requested your imaging first. Request for 2nd read MR Spine (Exam End: 01/04/2023 12:29 AM) Impression 1. Septic right L4-5 facet joint, with associated epidural phlegmon and abscess that contributes to severe canal stenosis at L4-5. 2. No evidence of discitis/osteomyelitis. 3. Paraspinous inflammatory changes without abscess. Thank you for letting us participate in the care of this patient. If you are a health care provider and have any questions regarding this report, please contact the number below. For patients who have questions please contact the health reproductive healthcare assistant that requested your imaging first. Lumbar Spine wwo Contrast (Exam End: 01/04/2023 7:46 PM) Impression Findings suggestive of right L4-5 septic joint. Interval expansion of large dorsal epidural abscess from L3 to L5 produces severe thecal sac narrowing and compression of cauda equina nerve roots. Thank you for letting us participate in the care of this patient. If you are a health care provider and have any questions regarding this report, please contact the number below. For patients who have questions please contact the health reproductive healthcare assistant that requested your imaging first. Knee 1-2 Views Right (Generic) (Exam End: 01/05/2023 1:26 PM) Impression Moderate right knee osteoarthropathy without acute abnormality. Thank you for letting us participate in the care of this patient. If you are a health care provider and have any questions regarding this report, please contact the number below. For patients who have questions please contact the health reproductive healthcare assistant that requested your imaging first. PICC Placement Over 5 Years with Imaging Guidance (IV Team) (Exam End: 01/07/2023 10:48 AM) Impression Right upper extremity PICC with appropriate placement Thank you for letting us participate in the care of this patient. If you are a health care provider and have any questions regarding this report, please contact the number below. For patients who have questions please contact the health reproductive healthcare assistant that requested your imaging first. Chest One View (Exam End: 01/10/2023 5:25 PM) Impression Right-sided PICC ends at the mid SVC. Normal cardiopulmonary findings. Thank you for letting us participate in the care of this patient. If you are a health care provider and have any questions regarding this report, please contact the number below. For patients who have questions please contact the health reproductive healthcare assistant that requested your imaging first. Inpatient Medications: Scheduled methadone 60 mg Oral 2 times per day Followed by [START ON 01/15/2023] methadone 65 mg Oral 2 times per day Followed by [START ON 01/16/2023] methadone 70 mg Oral 2 times per day Followed by [START ON 01/17/2023] methadone 75 mg Oral 2 times per day Followed by [START ON 01/18/2023] methadone 80 mg Oral 2 times per day Followed by [START ON 01/19/2023] methadone 85 mg Oral 2 times per day Followed by [START ON 01/20/2023] methadone 90 mg Oral 2 times per day Followed by [START ON 01/21/2023] methadone 95 mg Oral 2 times per day Followed by [START ON 01/22/2023] methadone 100 mg Oral 2 times per day tiZANidine 2 mg Oral Q6H enoxaparin 40 mg Subcutaneous Nightly gabapentin 600 mg Oral TID acetaminophen 975 mg Oral Q6H GUANACO lidocaine 3 patch Transdermal Q24H vancomycin 1.75 g Intravenous Q8H sodium chloride 0.9 % (flush) 5 mL Intravenous BID sodium chloride 0.9 % (flush) 5 mL Intravenous BID nicotine 1 patch Transdermal Daily And Patch Verification 1 patch Transdermal BID Continuous infusions: PRN: HYDROmorphone OR HYDROmorphone, hydrALAZINE, hydrOXYzine, ibuprofen, traZODone, sodium chloride 0.9 % (flush), lidocaine, sodium chloride 0.9 % (flush), lidocaine Assessment: Mesfin Lackey is a 32 y.o. female with hx of IVDU transferring from [facility] with L3-S1 epidural abscess. Interval history Per Neurosurgery, due to her RLE weakness progression, she met surgical criteria and initially planned for OR 01/10. However after discussion with patient, and her improved pain and improvement in strength, patient would like to defer surgery for now, and notify team of any new or worsening neurologic symptoms including new worsening weakness, numbness, tingling, radicular pain / bowel/bladder retention/incontinence. Continue with medical management now Ketamine gtt discontinued per APS, will work to up-titrate Methadone back to home dose and wean off Dilaudid. Will need discuss with BIT/JIMY for MDT to plan for 6 week OPAT safely given history of injection drug use. She is eager to get home to her family, if she is not an appropriate candidate for OPAT, it is verylikely she would request AMA discharge. Working to coordinate meeting with ID, BIT and team to determine safe D/C plan at this time. She is agreeable to stay in the hospital a few more days to allow time to create best plan of care. Plan: #L4-S1 Discitis w/Epidural abscess #MRSA Bacteremia # Back pain, acute # Concern for Septic RIGHT knee - Found on MRI to have evidence of L4-S1 discitis/osteomyelitis associated with epidural abscess. - Neurosurgery consult: -01/08 Patient reports subjective R leg numbness with R knee pain. -01/09 Initially planned for OR with neurosurgery, however, per NSGY her symptoms are improving, andthe patient wants to defer surgery, continue medical management. - Neuro IR consult for questions about possible drainage.--> small collection near the right L4-5 facet joint that we might be able to aspirate on 01/07 - 01/04 MRI L spine - Confirmed discitis/osteomyelitis with epidural abscess - 01/07 IR neuro feels risks outweigh the benefits. Decided against aspiration and feel conservativemanagement is the best management for the time being. ID Consult: - Continue Vancomycin (from 01/05-02/15) -TTE without vegetation -Micro: 01/03 -01/04 blood cultures - MRSA 01/05-01/07 blood cultures - NGTD at day 5 01/08 blood cultures - no growth at day 5 01/09- blood cultures no growth at day 4 APS Consult: - S/p Ketamine gtt, discontinued 01/11 - Wean off Tizanidine - Wean off Dilaudid - Titrate Methadone to home dose 200mg daily #OUD - Hx of IVDU last used on 01/02 - She takes 200mg qd which was verified with the [facility] [phone] on 01/09 (in addition to fentanyl usage) - Psychiatry/BIT consult: -Appreciate recs to reincorporate methadone dose of 200mg qd -Up titrate by 10mg QD and qtc check every other day -01/13 Qtc - 460 -Weaning off Dilaudid by 2mg per day - last adjustment 01/13 now at 2-4mg sliding scale, next changefor 01/15 # Transaminitis - Likely in the setting of ketamine infusion. Improving though - Continue following labs Q48 hours -Ortho consulted -X-rays of knee ordered. 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 No indication for acute neurosurgical intervention at this time. The patient can follow-up with the neurosurgery service as needed. Thank you for allowing us to participate in the care of this patient. We will sign off at this time. Please page [phone] with any questions. Harley Hernandez MD * Harley Hernandez MD - 01/13/2023 10:25 AM EDT NEUROSURGERY PROGRESS NOTE ID: Mesfin Lackey is a 32 y.o. female not on APAC with a PMHx significant for IVDU on methadone presenting in transfer from outside hospital for acute onset low back and RLE pain found on MRI tohave evidence of L4-S1 discitis/osteomyelitis associated with epidural abscess. HD# 10 POD # 3 Days Post-Op INTERVAL HX/ROS: -NAEON. Continues to be not interested in surgical intervention. MEDICATIONS: Scheduled Meds: methadone 55 mg Oral 2 times per day Followed by [START ON 01/14/2023] methadone 60 mg Oral 2 times per day Followed by [START ON 01/15/2023] methadone 65 mg Oral 2 times per day Followed by [START ON 01/16/2023] methadone 70 mg Oral 2 times per day Followed by [START ON 01/17/2023] methadone 75 mg Oral 2 times per day Followed by [START ON 01/18/2023] methadone 80 mg Oral 2 times per day Followed by [START ON 01/19/2023] methadone 85 mg Oral 2 times per day Followed by [START ON 01/20/2023] methadone 90 mg Oral 2 times per day Followed by [START ON 01/21/2023] methadone 95 mg Oral 2 times per day Followed by [START ON 01/22/2023] methadone 100 mg Oral 2 times per day tiZANidine 2 mg Oral Q6H enoxaparin 40 mg Subcutaneous Nightly gabapentin 600 mg Oral TID acetaminophen 975 mg Oral Q6H GUANACO lidocaine 3 patch Transdermal Q24H vancomycin 1.75 g Intravenous Q8H sodium chloride 0.9 % (flush) 5 mL Intravenous BID sodium chloride 0.9 % (flush) 5 mL Intravenous BID nicotine 1 patch Transdermal Daily And Patch Verification 1 patch Transdermal BID Continuous Infusions: PRN Meds: HYDROmorphone OR HYDROmorphone, hydrALAZINE, hydrOXYzine, ibuprofen, traZODone, sodium chloride 0.9 % (flush), lidocaine, sodium chloride 0.9 % (flush), lidocaine EXAM: Vitals: Temp: [36.8 ??C (98.2 ??F)-37.4 ??C (99.3 ??F)] Heart Rate: [86] Resp: [16-18] BP: (121-144)/(82-94) SpO2: [95 %-97 %] Heart Rate from SpO2: [83 bpm-96 bpm] BMI: Weight: (!) 142.3 kg (313 lb 11.4 oz) (01/04/23 0021) BMI (Calculated): 45.01 BMI Classification: Morbid Obesity I/O: I/O last 3 completed shifts: In: 2900 [P.O.:1900; I.V.:500; IV Piggyback:500] Out: 3450 [Urine:3450] GEN:NAD NEURO:AA No meningismus PERRL. EOMI. No facial asymmetry Tongue midline MOTOR: RUE:5/5 LUE:5/5 RLE: 4+/5 HF, 4/5 DF, o/w 5/5 LLE: 5/5 LT sensation intact x 4, though paresthesias over LLE LABS: Recent Labs 01/13/23 0415 01/12/23 0045 01/11/23 034 WBC 7.0 6.4 8.3 HGB 10.6* 10.4* 10.3* PLATELET 260 316 305 Recent Labs 01/13/23 0415 01/12/23 0045 01/11/23 0341 NA 140 140 139 K 4.2 3.8 4.0 CL 103 103 103 CO2 26 28 27 BUN 11 9 10 CREATININE 0.72 0.66* 0.66* No results for input(s): PT, INR in the last 72 hours. IMAGING: MRI lumbar spine wwo: R L4-5 septic facet joint with enhancement extending into the adjacent posterior paravertebral musculature discogenic edema and enhancement at L4-5 and L5-S1. No endplate marrow edema or enhancement.Diffuse circumferential epidural abscess from L3-S1, thickest at L4-5 level contributing to severe canal stenosis with crowding of the cauda equina. Lumbar vertebral body heights are maintained. No cord compression. No abnormal cord signal. Conus terminates at L1 Assessment: Mesfin Lackey is a 32 y.o. female not on APAC with a PMHx significant for IVDU on methadone presenting in transfer from outside hospital for acute onset low back and RLE pain found on MRI to have evidence of L4-S1 discitis/osteomyelitis associated with epidural abscess. 01/10: After a thorough risk and benefit discussion regarding the utility of surgery in the setting of symptom improvement, patient would like to defer surgery at this time. Patient was counseled in regards to the development of new or worsening neurologic symptoms and notifying medical personnel including new or worsening weakness, numbness, tingling, radicular pain, or bowel/bladder retention/incontinence. OR case cancelled. MRI for preoperative planning can be cancelled as well given symptom improvement. Can be given a diet and restarted on lovenox. Daily plan: Patient continues to feel improved and not interested in surgery at this time. Plan: - Q4HNC - Pain control - Imaging: Complete - DVT ppx: SCDs, OK for SQH from NSGY standpoint - Current Diet: Regular diet -Further care per hospital medicine PLEASE PAGE [phone] WITH QUESTIONS Active Hospital Problems Diagnosis Epidural abscess Resolved Hospital Problems No resolved problems to display. Active Non-Hospital Problems Diagnosis CIS - Entered not Verified CIS - Cervicalgia 723.1 CIS - Lumbar Spine Pain 724.2 Harley Hernandez MD 01/13/2023 * Jose Galvez, LUIS - 01/13/2023 8:05 AM EDT Hospital Medicine Daily Progress Note Admit Date: 01/03/2023 Hospital Day 10 days Active Hospital Problems Diagnosis Epidural abscess Resolved Hospital Problems No resolved problems to display. 24 Hour Events: -Plan for MDT meeting likely early this coming week to plan for 6 week OPAT safely given history ofinjection drug use. -Continue taper up of methadone, continue weaning down dilaudid -CRP continues to trend down favorably - 225 now down to 42 -Continue to taper down Dilaudid now at 2-4mg sliding scale, decrease by 2mg every other day -Taper up methadone by 10mg daily, monitor qtc every other day - last qtc on 01/13 - 460 Micro: 01/03 -01/04 blood cultures - MRSA 01/05-01/07 blood cultures - NGTD at day 5 01/08 blood cultures - no growth at day 5 01/09- blood cultures no growth at day 3 ROS: back and hip pain No anorexia No cough, shortness of breath No chest pain, palpitation No abdominal pain, N/V No hematuria, dysuria No constipation or diarrhea No rashes or skin changes No sore throat, nasal congestion Physical Exam Vitals Range last 24 hrs Temperature Temp: [36.6 ??C (97.9 ??F)-37.4 ??C (99.3 ??F)] Heart Rate Heart Rate: [86] Blood Pressure BP: (121-142)/(82-94) Respiratory Rate Resp: [16-18] SpO2 SpO2: [95 %-98 %] Intake/Output Summary (Last 24 hours) at 01/13/2023 0805 Last data filed at 01/13/2023 0318 Gross per 24 hour Intake 1950 ml Output 1700 ml Net 250 ml No data found. BMI: Weight: (!) 142.3 kg (313 lb 11.4 oz) (01/04/23 0021) BMI (Calculated): 45.01 BMI Classification: Morbid Obesity Estimated Creatinine Clearance: 170.3 mL/min (based on SCr of 0.72 mg/dL). General: Appears in mild distress due to pain. Lying in bed on back. HEENT: Normocephalic, atraumatic, symmetric. Sclera anicteric. Cardiovascular: Regular rhythm. No murmurs, rubs, gallops. Respiratory: Lungs clear to auscultation. No wheeze, rhonchi, rales. Abdominal: No lesions observed on abdomen. Normal bowel sounds. No tenderness to palpation. No hepatosplenomegaly or other masses detected. Lower Extremities: No pedal edema. Motor and sensation: 5/5 upper/lower strength b/l - LT sensation intact x 4 - Improved strength on R foot demonstrated on dorsiflexion and plantar flexion Neuro: CN III-XII intact. Sensation to touch is normal in bilateral upper and lower extremities. Cerebellar function intact as demonstrated by [id number] test. Studies reviewed in eDH. Remarkable for the following: LABS: Recent Labs 01/13/2341401/12/234401/11/23 034 WBC 7.0 6.4 8.3 HGB 10.6* 10.4* 10.3* HCT 33.6* 33.0* 32.5* PLATELET 260 316 305 Recent Labs 01/13/2341401/12/234401/11/23 034 NA 140 140 139 K 4.2 3.8 4.0 CL 103 103 103 CO2 26 28 27 BUN 11 9 10 CREATININE 0.72 0.66* 0.66* Recent Labs 01/11/23 03401/09/23 0142 01/07/23 0611 AST 28 22 73* ALT 51* 51* 81* ALKPHOS 118* 137* 147* BILITOT <0.2* <0.2* 0.3 BILIDIR 0.1 0.1 0.1 Recent Labs 01/13/2341401/12/234401/11/23 034 CALCIUM 8.9 9.0 8.8 PHOS 5.0* 5.1* 4.2 No results for input(s): PT, INR, PTT in the last 168 hours. No results for input(s): CK, TROPONINT in the last 168 hours. FSBG Trend No results for input(s): POCGLU in the last 72 hours. MICRO: No results for input(s): URINECULTURE in the last 720 hours. No results for input(s): GRAMSTAIN, BFCX, LOWERRESPCX, TISSUECX in the last 720 hours. Recent Labs 01/06/23 1030 01/07/23 0040 01/07/23 0051 01/08/23 0106 01/08/23 0107 01/09/23 1509 BLOODCX No growth at 5 days. No growth at 5 days. No growth at 5 days. No growth at 5 days. No growth at 5 days. No growth at 3 days. No growth at 3 days. ECG: Recent Labs 01/12/23 1359 DIAGLINE Normal sinus rhythm Right bundle branch block Abnormal ECG When compared with ECG of 10-JAN-2023 17:51, Questionable change in QRS axis Confirmed by MD RADHA, MELISSA ([id number]) on 01/12/2023 9:15:03 PM QTCCALC 452 VASCULAR: No results for input(s): VBTEXTRPT in the last 720 hours. IMAGING: Results for orders placed or performed during the hospital encounter of 01/03/23 XR Chest One View (Exam End: 01/03/2023 10:27 PM) Impression Low lung volumes, otherwise, no acute cardiopulmonary process. Thank you for letting us participate in the care of this patient. If you are a health care provider and have any questions regarding this report, please contact the number below. For patients who have questions please contact the health reproductive healthcare assistant that requested your imaging first. Request for 2nd read MR Spine (Exam End: 01/04/2023 12:29 AM) Impression 1. Septic right L4-5 facet joint, with associated epidural phlegmon and abscess that contributes to severe canal stenosis at L4-5. 2. No evidence of discitis/osteomyelitis. 3. Paraspinous inflammatory changes without abscess. Thank you for letting us participate in the care of this patient. If you are a health care provider and have any questions regarding this report, please contact the number below. For patients who have questions please contact the health reproductive healthcare assistant that requested your imaging first. Lumbar Spine wwo Contrast (Exam End: 01/04/2023 7:46 PM) Impression Findings suggestive of right L4-5 septic joint. Interval expansion of large dorsal epidural abscess from L3 to L5 produces severe thecal sac narrowing and compression of cauda equina nerve roots. Thank you for letting us participate in the care of this patient. If you are a health care provider and have any questions regarding this report, please contact the number below. For patients who have questions please contact the health reproductive healthcare assistant that requested your imaging first. Knee 1-2 Views Right (Generic) (Exam End: 01/05/2023 1:26 PM) Impression Moderate right knee osteoarthropathy without acute abnormality. Thank you for letting us participate in the care of this patient. If you are a health care provider and have any questions regarding this report, please contact the number below. For patients who have questions please contact the health reproductive healthcare assistant that requested your imaging first. PICC Placement Over 5 Years with Imaging Guidance (IV Team) (Exam End: 01/07/2023 10:48 AM) Impression Right upper extremity PICC with appropriate placement Thank you for letting us participate in the care of this patient. If you are a health care provider and have any questions regarding this report, please contact the number below. For patients who have questions please contact the health reproductive healthcare assistant that requested your imaging first. Chest One View (Exam End: 01/10/2023 5:25 PM) Impression Right-sided PICC ends at the mid SVC. Normal cardiopulmonary findings. Thank you for letting us participate in the care of this patient. If you are a health care provider and have any questions regarding this report, please contact the number below. For patients who have questions please contact the health reproductive healthcare assistant that requested your imaging first. Inpatient Medications: Scheduled methadone 55 mg Oral 2 times per day Followed by [START ON 01/14/2023] methadone 60 mg Oral 2 times per day Followed by [START ON 01/15/2023] methadone 65 mg Oral 2 times per day Followed by [START ON 01/16/2023] methadone 70 mg Oral 2 times per day Followed by [START ON 01/17/2023] methadone 75 mg Oral 2 times per day Followed by [START ON 01/18/2023] methadone 80 mg Oral 2 times per day Followed by [START ON 01/19/2023] methadone 85 mg Oral 2 times per day Followed by [START ON 01/20/2023] methadone 90 mg Oral 2 times per day Followed by [START ON 01/21/2023] methadone 95 mg Oral 2 times per day Followed by [START ON 01/22/2023] methadone 100 mg Oral 2 times per day tiZANidine 2 mg Oral Q6H enoxaparin 40 mg Subcutaneous Nightly gabapentin 600 mg Oral TID acetaminophen 975 mg Oral Q6H GUNAACO lidocaine 3 patch Transdermal Q24H vancomycin 1.75 g Intravenous Q8H sodium chloride 0.9 % (flush) 5 mL Intravenous BID sodium chloride 0.9 % (flush) 5 mL Intravenous BID nicotine 1 patch Transdermal Daily And Patch Verification 1 patch Transdermal BID Continuous infusions: PRN: HYDROmorphone OR HYDROmorphone OR [DISCONTINUED] HYDROmorphone, hydrALAZINE, hydrOXYzine, ibuprofen, traZODone, sodium chloride 0.9 % (flush), lidocaine, sodium chloride 0.9 % (flush), lidocaine Assessment: Mesfin Lackey is a 32 y.o. female with hx of IVDU transferring from [facility] with L3-S1 epidural abscess. Interval history Patient continues complaining of severe back pain but provides a better feedback on the treatment plan today. Neurosurgery will be taking her to the OR tomorrow. We are still waiting for the MRI to be done and post the read. Will consult with BIT team to assist with the already verified methadone dose of 200mg qd. Per Neurosurgery, due to her RLE weakness progression, she met surgical criteria and initially planned for OR 01/10. However after discussion with patient, and her improved pain and improvement in strength this morning, patient would like to defer surgery for now, and notify team of any new or worsening neurologic symptoms including new worsening weakness, numbness, tingling, radicular pain / bowel/bladder retention/incontinence. Continue with medical management now we Ketamine gtt discontinued per APS, will work to up-titrate Methadone back to home dose and wean off Dilaudid. Will need discuss with BIT/ID for MDT to plan for 6 week OPAT safely given history of injection drug use. Plan: #L4-S1 Discitis w/Epidural abscess #MRSA Bacteremia # Back pain, acute # Concern for Septic RIGHT knee - Found on MRI to have evidence of L4-S1 discitis/osteomyelitis associated with epidural abscess. - Neurosurgery consult: -01/08 Patient reports subjective R leg numbness with R knee pain. -01/09 Initially planned for OR with neurosurgery, however, per NSGY her symptoms are improving, andthe patient wants to defer surgery, continue medical management. - Neuro IR consult for questions about possible drainage.--> small collection near the right L4-5 facet joint that we might be able to aspirate on 01/07 - 01/04 MRI L spine - Confirmed discitis/osteomyelitis with epidural abscess - 01/07 IR neuro feels risks outweigh the benefits. Decided against aspiration and feel conservativemanagement is the best management for the time being. ID Consult: - Continue Vancomycin (from 01/05-02/15) -TTE without vegetation -Micro: 01/03 -01/04 blood cultures - MRSA 01/05-01/07 blood cultures - NGTD at day 5 01/08 blood cultures - no growth at day 5 01/09- blood cultures no growth at day 4 APS Consult: - S/p Ketamine gtt, discontinued 01/11 - Wean off Tizanidine - Wean off Dilaudid - Titrate Methadone to home dose 200mg daily #OUD - Hx of IVDU last used on 01/02 - She takes 200mg qd which was verified with the [facility] [phone] on 01/09 (in addition to fentanyl usage) - Psychiatry/BIT consult: -Appreciate recs to reincorporate methadone dose of 200mg qd -Up titrate by 10mg QD and qtc check every other day -01/13 Qtc - 460 -Weaning off Dilaudid by 2mg per day - last adjustment 01/13 now at 2-4mg sliding scale, next changefor 01/15 # Transaminitis - Likely in the setting of ketamine infusion. Improving though - Continue following labs Q48 hours -Ortho consulted -X-rays of knee ordered. 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 female not on APAC with a PMHx significant for IVDU on methadone presenting in transfer from outside hospital for acute onset low back and RLE pain found on MRI tohave evidence of L4-S1 discitis/osteomyelitis associated with epidural abscess. HD# 9 POD # 2 Days Post-Op INTERVAL HX/ROS: -NAEON. Continues to be not interested in surgical intervention. MEDICATIONS: Scheduled Meds: methadone 50 mg Oral 2 times per day Followed by [START ON 01/13/2023] methadone 55 mg Oral 2 times per day Followed by [START ON 01/14/2023] methadone 60 mg Oral 2 times per day Followed by [START ON 01/15/2023] methadone 65 mg Oral 2 times per day Followed by [START ON 01/16/2023] methadone 70 mg Oral 2 times per day Followed by [START ON 01/17/2023] methadone 75 mg Oral 2 times per day Followed by [START ON 01/18/2023] methadone 80 mg Oral 2 times per day Followed by [START ON 01/19/2023] methadone 85 mg Oral 2 times per day Followed by [START ON 01/20/2023] methadone 90 mg Oral 2 times per day Followed by [START ON 01/21/2023] methadone 95 mg Oral 2 times per day Followed by [START ON 01/22/2023] methadone 100 mg Oral 2 times per day tiZANidine 2 mg Oral Q6H enoxaparin 40 mg Subcutaneous Nightly gabapentin 600 mg Oral TID acetaminophen 975 mg Oral Q6H GUANACO shift total and Settings verification Intravenous 2 Times Daily - Shift Total lidocaine 3 patch Transdermal Q24H vancomycin 1.75 g Intravenous Q8H sodium chloride 0.9 % (flush) 5 mL Intravenous BID sodium chloride 0.9 % (flush) 5 mL Intravenous BID nicotine 1 patch Transdermal Daily And Patch Verification 1 patch Transdermal BID Continuous Infusions: PRN Meds: HYDROmorphone OR HYDROmorphone OR [DISCONTINUED] HYDROmorphone, hydrALAZINE, hydrOXYzine, ibuprofen, traZODone, sodium chloride 0.9 % (flush), lidocaine, sodium chloride 0.9 % (flush), lidocaine EXAM: Vitals: Temp: [36.5 ??C (97.7 ??F)-37.3 ??C (99.1 ??F)] Heart Rate: [79-92] Resp: [12-20] BP: (127-164)/(70-100) SpO2: [94 %-100 %] Heart Rate from SpO2: [80 bpm-98 bpm] BMI: Weight: (!) 142.3 kg (313 lb 11.4 oz) (01/04/23 0021) BMI (Calculated): 45.01 BMI Classification: Morbid Obesity I/O: I/O last 3 completed shifts: In: 600 [P.O.:600] Out: 3450 [Urine:3450] GEN:NAD NEURO:AA No meningismus PERRL. EOMI. No facial asymmetry Tongue midline MOTOR: RUE:5/5 LUE:5/5 RLE: 4+/5 HF, 4/5 DF, o/w 5/5 LLE: 5/5 LT sensation intact x 4, though paresthesias over LLE LABS: Recent Labs 01/12/23 0045 01/11/23 0341 01/10/23 0115 WBC 6.4 8.3 6.7 HGB 10.4* 10.3* 9.5* PLATELET 316 305 226 Recent Labs 01/12/23 0045 01/11/23 0341 01/10/23 0115 NA 140 139 142 K 3.8 4.0 3.5 CL 103 103 106 CO2 BUN 9 10 7* CREATININE 0.66* 0.66* 0.61* No results for input(s): PT, INR in the last 72 hours. IMAGING: MRI lumbar spine wwo: R L4-5 septic facet joint with enhancement extending into the adjacent posterior paravertebral musculature discogenic edema and enhancement at L4-5 and L5-S1. No endplate marrow edema or enhancement.Diffuse circumferential epidural abscess from L3-S1, thickest at L4-5 level contributing to severe canal stenosis with crowding of the cauda equina. Lumbar vertebral body heights are maintained. No cord compression. No abnormal cord signal. Conus terminates at L1 Assessment: Mesfin Lackey is a 32 y.o. female not on APAC with a PMHx significant for IVDU on methadone presenting in transfer from outside hospital for acute onset low back and RLE pain found on MRI to have evidence of L4-S1 discitis/osteomyelitis associated with epidural abscess. 01/10: After a thorough risk and benefit discussion regarding the utility of surgery in the setting of symptom improvement, patient would like to defer surgery at this time. Patient was counseled in regards to the development of new or worsening neurologic symptoms and notifying medical personnel including new or worsening weakness, numbness, tingling, radicular pain, or bowel/bladder retention/incontinence. OR case cancelled. MRI for preoperative planning can be cancelled as well given symptom improvement. Can be given a diet and restarted on lovenox. Daily plan: Patient continues to feel improved and not interested in surgery at this time. Plan: - Q4HNC - Pain control - Imaging: Complete - DVT ppx: SCDs, OK for SQH from NSGY standpoint - Current Diet: Regular diet -Further care per hospital medicine PLEASE PAGE [phone] WITH QUESTIONS Active Hospital Problems Diagnosis Epidural abscess Resolved Hospital Problems No resolved problems to display. Active Non-Hospital Problems Diagnosis CIS - Entered not Verified CIS - Cervicalgia 723.1 CIS - Lumbar Spine Pain 724.2 Gris Garcia MD 01/12/2023 * Jose Galvez APRN - 01/12/2023 8:14 AM EDT Hospital Medicine Daily Progress Note Admit Date: 01/03/2023 Hospital Day 9 days Active Hospital Problems Diagnosis Epidural abscess Resolved Hospital Problems No resolved problems to display. 24 Hour Events: -Ketamine infusion discontinued by APS -Pain is improved, feeling better this morning, strength feels improved, denies and bladder/bowel incontinence, RLE weakness improved -Plan for MDT meeting likely early this coming week to plan for 6 week OPAT safely given history ofinjection drug use. -Continue taper up of methadone, continue weaning down dilaudid - CRP trending down favorably Micro: 01/03 -01/04 blood cultures - MRSA 01/05-01/07 blood cultures - NGTD at day 5 01/08 blood cultures - no growth at day 4 01/09- blood cultures no growth at day 2 ROS: back and hip pain No anorexia No cough, shortness of breath No chest pain, palpitation No abdominal pain, N/V No hematuria, dysuria No constipation or diarrhea No rashes or skin changes No sore throat, nasal congestion Physical Exam Vitals Range last 24 hrs Temperature Temp: [36.5 ??C (97.7 ??F)-37.3 ??C (99.1 ??F)] Heart Rate Heart Rate: [79-92] Blood Pressure BP: (127-164)/(70-100) Respiratory Rate Resp: [12-20] SpO2 SpO2: [94 %-100 %] Intake/Output Summary (Last 24 hours) at 01/12/2023 0814 Last data filed at 01/12/2023 0345 Gross per 24 hour Intake 600 ml Output 3150 ml Net -2550 ml No data found. BMI: Weight: (!) 142.3 kg (313 lb 11.4 oz) (01/04/23 0021) BMI (Calculated): 45.01 BMI Classification: Morbid Obesity Estimated Creatinine Clearance: 185.8 mL/min (A) (based on SCr of 0.66 mg/dL (L)). General: Appears in mild distress due to pain. Lying in bed on back. HEENT: Normocephalic, atraumatic, symmetric. Sclera anicteric. Cardiovascular: Regular rhythm. No murmurs, rubs, gallops. Respiratory: Lungs clear to auscultation. No wheeze, rhonchi, rales. Abdominal: No lesions observed on abdomen. Normal bowel sounds. No tenderness to palpation. No hepatosplenomegaly or other masses detected. Lower Extremities: No pedal edema. Motor and sensation: 5/5 upper/lower strength b/l - LT sensation intact x 4 - Improved strength on R foot demonstrated on dorsiflexion and plantar flexion Neuro: CN III-XII intact. Sensation to touch is normal in bilateral upper and lower extremities. Cerebellar function intact as demonstrated by [id number] test. Studies reviewed in eDH. Remarkable for the following: LABS: Recent Labs 01/12/23 0045 01/11/2334001/10/23 0115 WBC 6.4 8.3 6.7 HGB 10.4* 10.3* 9.5* HCT 33.0* 32.5* 30.0* PLATELET 316 305 226 Recent Labs 01/12/23 0045 01/11/23 03401/10/23 0115 NA 140 139 142 K 3.8 4.0 3.5 CL 103 103 106 CO2 28 27 28 BUN 9 10 7* CREATININE 0.66* 0.66* 0.61* Recent Labs 01/11/23 03401/09/23 0142 01/07/23 0611 AST 28 22 73* ALT 51* 51* 81* ALKPHOS 118* 137* 147* BILITOT <0.2* <0.2* 0.3 BILIDIR 0.1 0.1 0.1 Recent Labs 01/12/23 0045 01/11/2334001/10/23 0115 CALCIUM 9.0 8.8 8.4* PHOS 5.1* 4.2 4.6* No results for input(s): PT, INR, PTT in the last 168 hours. No results for input(s): CK, TROPONINT in the last 168 hours. FSBG Trend No results for input(s): POCGLU in the last 72 hours. MICRO: No results for input(s): URINECULTURE in the last 720 hours. No results for input(s): GRAMSTAIN, BFCX, LOWERRESPCX, TISSUECX in the last 720 hours. Recent Labs 01/06/23 1030 01/07/23 0040 01/07/23 0051 01/08/23 0106 01/08/23 0107 01/09/23 1509 BLOODCX No growth at 5 days. No growth at 5 days. No growth at 5 days. No growth at 4 days. No growth at 4 days. No growth at 2 days. No growth at 2 days. ECG: Recent Labs 01/10/23 1751 DIAGLINE Normal sinus rhythm Right bundle branch block Abnormal ECG No previous ECGs available QTCCALC 469 VASCULAR: No results for input(s): VBTEXTRPT in the last 720 hours. IMAGING: Results for orders placed or performed during the hospital encounter of 01/03/23 XR Chest One View (Exam End: 01/03/2023 10:27 PM) Impression Low lung volumes, otherwise, no acute cardiopulmonary process. Thank you for letting us participate in the care of this patient. If you are a health care provider and have any questions regarding this report, please contact the number below. For patients who have questions please contact the health reproductive healthcare assistant that requested your imaging first. Request for 2nd read MR Spine (Exam End: 01/04/2023 12:29 AM) Impression 1. Septic right L4-5 facet joint, with associated epidural phlegmon and abscess that contributes to severe canal stenosis at L4-5. 2. No evidence of discitis/osteomyelitis. 3. Paraspinous inflammatory changes without abscess. Thank you for letting us participate in the care of this patient. If you are a health care provider and have any questions regarding this report, please contact the number below. For patients who have questions please contact the health reproductive healthcare assistant that requested your imaging first. Lumbar Spine wwo Contrast (Exam End: 01/04/2023 7:46 PM) Impression Findings suggestive of right L4-5 septic joint. Interval expansion of large dorsal epidural abscess from L3 to L5 produces severe thecal sac narrowing and compression of cauda equina nerve roots. Thank you for letting us participate in the care of this patient. If you are a health care provider and have any questions regarding this report, please contact the number below. For patients who have questions please contact the health reproductive healthcare assistant that requested your imaging first. Knee 1-2 Views Right (Generic) (Exam End: 01/05/2023 1:26 PM) Impression Moderate right knee osteoarthropathy without acute abnormality. Thank you for letting us participate in the care of this patient. If you are a health care provider and have any questions regarding this report, please contact the number below. For patients who have questions please contact the health reproductive healthcare assistant that requested your imaging first. PICC Placement Over 5 Years with Imaging Guidance (IV Team) (Exam End: 01/07/2023 10:48 AM) Impression Right upper extremity PICC with appropriate placement Thank you for letting us participate in the care of this patient. If you are a health care provider and have any questions regarding this report, please contact the number below. For patients who have questions please contact the health reproductive healthcare assistant that requested your imaging first. Chest One View (Exam End: 01/10/2023 5:25 PM) Impression Right-sided PICC ends at the mid SVC. Normal cardiopulmonary findings. Thank you for letting us participate in the care of this patient. If you are a health care provider and have any questions regarding this report, please contact the number below. For patients who have questions please contact the health reproductive healthcare assistant that requested your imaging first. Inpatient Medications: Scheduled methadone 50 mg Oral 2 times per day Followed by [START ON 01/13/2023] methadone 55 mg Oral 2 times per day Followed by [START ON 01/14/2023] methadone 60 mg Oral 2 times per day Followed by [START ON 01/15/2023] methadone 65 mg Oral 2 times per day Followed by [START ON 01/16/2023] methadone 70 mg Oral 2 times per day Followed by [START ON 01/17/2023] methadone 75 mg Oral 2 times per day Followed by [START ON 01/18/2023] methadone 80 mg Oral 2 times per day Followed by [START ON 01/19/2023] methadone 85 mg Oral 2 times per day Followed by [START ON 01/20/2023] methadone 90 mg Oral 2 times per day Followed by [START ON 01/21/2023] methadone 95 mg Oral 2 times per day Followed by [START ON 01/22/2023] methadone 100 mg Oral 2 times per day tiZANidine 2 mg Oral Q6H enoxaparin 40 mg Subcutaneous Nightly gabapentin 600 mg Oral TID acetaminophen 975 mg Oral Q6H GUANACO shift total and Settings verification Intravenous 2 Times Daily - Shift Total lidocaine 3 patch Transdermal Q24H vancomycin 1.75 g Intravenous Q8H sodium chloride 0.9 % (flush) 5 mL Intravenous BID sodium chloride 0.9 % (flush) 5 mL Intravenous BID nicotine 1 patch Transdermal Daily And Patch Verification 1 patch Transdermal BID Continuous infusions: PRN: HYDROmorphone OR HYDROmorphone OR [DISCONTINUED] HYDROmorphone, hydrALAZINE, hydrOXYzine, ibuprofen, traZODone, sodium chloride 0.9 % (flush), lidocaine, sodium chloride 0.9 % (flush), lidocaine Assessment: Mesfin Lackey is a 32 y.o. female with hx of IVDU transferring from [facility] with L3-S1 epidural abscess. Interval history Patient continues complaining of severe back pain but provides a better feedback on the treatment plan today. Neurosurgery will be taking her to the OR tomorrow. We are still waiting for the MRI to be done and post the read. Will consult with BIT team to assist with the already verified methadone dose of 200mg qd. Per Neurosurgery, due to her RLE weakness progression, she met surgical criteria and initially planned for OR 01/10. However after discussion with patient, and her improved pain and improvement in strength this morning, patient would like to defer surgery for now, and notify team of any new or worsening neurologic symptoms including new worsening weakness, numbness, tingling, radicular pain / bowel/bladder retention/incontinence. Continue with medical management now we Ketamine gtt discontinued per APS, will work to up-titrate Methadone back to home dose and wean off Dilaudid. Will need discuss with BIT/ID for MDT to plan for 6 week OPAT safely given history of injection drug use. Plan: #L4-S1 Discitis w/Epidural abscess #MRSA Bacteremia # Back pain, acute # Concern for Septic RIGHT knee - Found on MRI to have evidence of L4-S1 discitis/osteomyelitis associated with epidural abscess. - Neurosurgery consult: - No need for surgical intervention at this time as she does not have neuro deficits. -01/08 Patient reports subjective R leg numbness with R knee pain. -01/09 Initially planned for OR with neurosurgery, however, per NSGY her symptoms are improving, andthe patient wants to defer surgery, continue medical management. - Neuro IR consult for questions about possible drainage.--> small collection near the right L4-5 facet joint that we might be able to aspirate on 01/07 - 01/04 MRI L spine - Confirmed discitis/osteomyelitis with epidural abscess - 01/07 IR neuro feels risks outweigh the benefits. Decided against aspiration and feel conservativemanagement is the best management for the time being. ID Consult: -DC Rocephin, continue Vancomycin (01/04 - ) -TTE without vegetation -Micro: 01/03 -01/04 blood cultures - MRSA 01/05-01/07 blood cultures - NGTD at day 5 01/08 blood cultures - no growth at day 4 01/09- blood cultures no growth at day 2 -Ortho consulted, -X-rays of knee ordered. appreciate their assistance- no effusion or enough fluidfrom aspiration to culture consulted APS: 1) liberalize opioid PO sliding scale- done 01/06 2) Start Ketamine infusion for acute pain crisis. Please check QOD LFT's while on ketamine 3) Increase Gabapentin to 600 4) Continue split dose of Methadone and confirm actual dose with clinic on Saturday, 01/07---> 200mg qd. Verified on 01/09 5) Schedule Tizanidine ordered 01/06 6) Lidocaine patches x 3 (goal to generate blood level for the anti-inflammatory effects- thus the location is not important-started 01/06 7) After 48 hours of Ketoralac, please convert to PO ibuprofen- done 01/06 - 01/10 Ketamine infusion decreased 0.3mg/ Kg as pain is improving #OUD - Hx of IVDU last used on 01/02 - 01/11 - Up titrated to 50mg BID - qtc 469 - She takes 200mg qd which was verified with the [facility] [phone] on 01/09 (in addition to fentanyl usage) - Psychiatry/BIT consult: - Appreciate recs to reincorporate methadone dose of 200mg qd -Appreciate recommendations -Cannot titrate faster than 10mg QD vs QoD, daily vs QoD EKG monitoring -Will follow up note when available # Transaminitis - Likely in the setting of ketamine infusion. 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 female not on APAC with a PMHx significant for IVDU on methadone presenting in transfer from outside hospital for acute onset low back and RLE pain found on MRI tohave evidence of L4-S1 discitis/osteomyelitis associated with epidural abscess. HD# 8 POD # 1 Day Post-Op INTERVAL HX/ROS: -NAEON. Continues to be not interested in surgical intervention. MEDICATIONS: Scheduled Meds: methadone 50 mg Oral 2 times per day Followed by [START ON 01/13/2023] methadone 55 mg Oral 2 times per day Followed by [START ON 01/14/2023] methadone 60 mg Oral 2 times per day Followed by [START ON 01/15/2023] methadone 65 mg Oral 2 times per day Followed by [START ON 01/16/2023] methadone 70 mg Oral 2 times per day Followed by [START ON 01/17/2023] methadone 75 mg Oral 2 times per day Followed by [START ON 01/18/2023] methadone 80 mg Oral 2 times per day Followed by [START ON 01/19/2023] methadone 85 mg Oral 2 times per day Followed by [START ON 01/20/2023] methadone 90 mg Oral 2 times per day Followed by [START ON 01/21/2023] methadone 95 mg Oral 2 times per day Followed by [START ON 01/22/2023] methadone 100 mg Oral 2 times per day enoxaparin 40 mg Subcutaneous Nightly gabapentin 600 mg Oral TID acetaminophen 975 mg Oral Q6H GUANACO shift total and Settings verification Intravenous 2 Times Daily - Shift Total lidocaine 3 patch Transdermal Q24H tiZANidine 4 mg Oral Q6H vancomycin 1.75 g Intravenous Q8H sodium chloride 0.9 % (flush) 5 mL Intravenous BID sodium chloride 0.9 % (flush) 5 mL Intravenous BID nicotine 1 patch Transdermal Daily And Patch Verification 1 patch Transdermal BID Continuous Infusions: PRN Meds: HYDROmorphone OR HYDROmorphone OR [DISCONTINUED] HYDROmorphone, hydrALAZINE, hydrOXYzine, ibuprofen, traZODone, sodium chloride 0.9 % (flush), lidocaine, sodium chloride 0.9 % (flush), lidocaine EXAM: Vitals: Temp: [36.8 ??C (98.3 ??F)-37.3 ??C (99.1 ??F)] Heart Rate: -- Resp: [18-22] BP: (143-171)/(86-118) SpO2: [95 %-100 %] Heart Rate from SpO2: [91 bpm-98 bpm] BMI: Weight: (!) 142.3 kg (313 lb 11.4 oz) (01/04/23 0021) BMI (Calculated): 45.01 BMI Classification: Morbid Obesity I/O: I/O last 3 completed shifts: In: 0 Out: 1050 [Urine:1050] GEN:NAD NEURO:AA No meningismus PERRL. EOMI. No facial asymmetry Tongue midline MOTOR: RUE:5/5 LUE:5/5 RLE: 4-/5 HF, 4/5 distally LLE: 5/5 LT sensation intact x 4, though paresthesias over LLE LABS: Recent Labs 01/11/23 0341 01/10/23 0115 01/09/23 0142 WBC 8.3 6.7 10.2* HGB 10.3* 9.5* 10.3* PLATELET 305 226 206 Recent Labs 01/11/23 0341 01/10/23 0115 01/09/23 0142 NA 139 142 142 K 4.0 3.5 3.5 CL 103 106 105 CO2 BUN 10 7* 5* CREATININE 0.66* 0.61* 0.64* No results for input(s): PT, INR in the last 72 hours. IMAGING: MRI lumbar spine wwo: R L4-5 septic facet joint with enhancement extending into the adjacent posterior paravertebral musculature discogenic edema and enhancement at L4-5 and L5-S1. No endplate marrow edema or enhancement.Diffuse circumferential epidural abscess from L3-S1, thickest at L4-5 level contributing to severe canal stenosis with crowding of the cauda equina. Lumbar vertebral body heights are maintained. No cord compression. No abnormal cord signal. Conus terminates at L1 Assessment: Mesfin Lackey is a 32 y.o. female not on APAC with a PMHx significant for IVDU on methadone presenting in transfer from outside hospital for acute onset low back and RLE pain found on MRI to have evidence of L4-S1 discitis/osteomyelitis associated with epidural abscess. 01/10: After a thorough risk and benefit discussion regarding the utility of surgery in the setting of symptom improvement, patient would like to defer surgery at this time. Patient was counseled in regards to the development of new or worsening neurologic symptoms and notifying medical personnel including new or worsening weakness, numbness, tingling, radicular pain, or bowel/bladder retention/incontinence. OR case cancelled. MRI for preoperative planning can be cancelled as well given symptom improvement. Can be given a diet and restarted on lovenox. Daily plan: Patient continues to feel improved and not interested in surgery at this time. Plan: - Q4HNC - Pain control - Imaging: Complete - DVT ppx: SCDs, OK for SQH from NSGY standpoint - Current Diet: Regular diet -Further care per hospital medicine PLEASE PAGE [phone] WITH QUESTIONS Active Hospital Problems Diagnosis Epidural abscess Resolved Hospital Problems No resolved problems to display. Active Non-Hospital Problems Diagnosis CIS - Entered not Verified CIS - Cervicalgia 723.1 CIS - Lumbar Spine Pain 724.2 Martin Hagan MD 01/11/2023 * Laurie Zavala - 01/11/2023 3:24 PM EDT Nutrition Services Note - Low Nutrition Acuity Mesfin Lackey is a 32 y.o. female Reason for intervention: hospital day 9 Nutrition Plan: Continue diet order Monitor good PO Special servs: no cans, no saran wrap Monitor weight weekly Patient scheduled for a hospital day 9 nutrition evaluation. Application Tester spoke with RN before entering room d/t sign on door. RN has no nutritional concerns for pt and reports a good appetite. Per documentation patient has excellent PO intakes recorded at 75-100% over the past 4 days. According to dining services software they have ordered btwn 1393-3515kcals/day within the same duration. Pt shares a good appetite and reports eating 75-100% of meals, consistent with documentation. No weight loss observed per graph. Please update and trend wts to allow for ongoing assessment of weight changes. Clinical Nutrition to monitor and follow. Active Orders Diet Regular diet Frequency: Effective Now Number of Occurrences: Until Specified Admit Weight: 127.01 kg Estimated body mass index is 45.01 kg/m?? as calculated from the following: Height as of this encounter: 177.8 cm (5' 10). Weight as of this encounter: 142.3 kg (313 lb 11.4 oz). Wt Readings from Last 5 Encounters: 01/04/23 (!) 142.3 kg (313 lb 11.4 oz) 01/06/23 (!) 142 kg (313 lb) Weight loss: none Appetite: Excellent (75%-100%) Food allergies:no known food allergies Chewing/Swallowing difficulty: none Nausea/Vomiting: no nausea and no vomiting Last Bowel Movement: 01/10/23 Patient education / questions: all nutrition related questions answered at this time Laurie Zavala Hypertrichologist * Sites, Blanco Gurrola MD - 01/11/2023 11:49 AM EDT Acute Pain Medicine Service Daily Visit Note Mesfin Lackey is being evaluated for the management of their acute on chronic pain. Pain is categorized as somatic nociceptive and neuropathic. Interval History: Patient was comfortable throughout the day, but again complained of 8/10 pain overnight. Ketamine drip was decreased to 0.3 yesterday morning and pain experience seems to be unchanged since then. On exam this AM, patient states her pain is well controlled. Problem List: Active Hospital Problems Diagnosis Epidural abscess Resolved Hospital Problems No resolved problems to display. Active Non-Hospital Problems Diagnosis CIS - Entered not Verified CIS - Cervicalgia 723.1 CIS - Lumbar Spine Pain 724.2 Review of Systems: Sedation Level: DIANNA -1 Pruritis/Skin: none GI/Bowels/Nausea: none Vital Signs: Last Set of Vitals BP (!) 171/118 Pulse (!) 102 Temp 37 ??C (98.6 ??F) (Oral) Resp 18 Ht 177.8 cm (5' 10) Wt (!) 142.3 kg (313 lb 11.4 oz) SpO2 95% BMI 45.01 kg/m?? Pain Scores: 9 Physical Exam: Affect: Sleepy, comfortable Pain Behaviors:none Labs: WBC/Hgb/Hct/Plts: 8.3 10.3* 32.5* 305 (01/11 341) BUN/Cr/glu/ALT/AST/amyl/lip: 10/0.66/105/51/28/--/-- (01/11 341) Pertinent Medications: HYDROmorphone methadone METHADONE ORAL ZZ IMS TEMPLATE Assessment: Patient currently with good pain control of acute nociceptive and neuropathic pain due to epidural infection/abscess complicated by chronic back pain and active opioid use disorder. Plan: - Discontinue ketamine drip - Continue multimodal analgesia regimen - Current methadone dose 50mg BID, continue titration to home dose(200mg daily) with BIT recs - Wean PRN dilaudid as methadone dose increases Plan was discussed with primary team. Recommendations as above, please page if further consultation required. Tianna Del Cid MD 01/11/2023 Acute Pain Medicine Service Pager: [phone] [employer] [facility] I have seen and examined the patient. I agree with the above assessment and plan. Blanco Gurrola. MD Kike [phone] * Jose Galvez, SALES STORE CHECKER - 01/11/2023 8:05 AM EDT Hospital Medicine Daily Progress Note Admit Date: 01/03/2023 Hospital Day 8 days Active Hospital Problems Diagnosis Epidural abscess Resolved Hospital Problems No resolved problems to display. 24 Hour Events: -Ketamine infusion discontinued by APS -Pain is improved, feeling better this morning, strength feels improved. -Plan to engage BIT/ID for MDT to plan for 6 week OPAT safely given history of injection drug use. -Discussed with Psychiatry/BIT - will increase Methadone from 45mg BID to 50mg BID starting this evening, last qtc 469, will need EKGs QOD to monitor as we up-titrate -Will plan to titrate up to home dose of 200mg daily by no more than 10mg daily with routine qtc monitoring -Will wean down Dilaudid by 2mg every other day Micro: 01/03 -01/04 blood cultures - MRSA 01/05-01/07 blood cultures - no growth 01/08 blood cultures - no growth at day 3 01/09- blood cultures no growth at day 1 ROS: back and hip pain, R knee pain, R leg numbness improving No anorexia No cough, shortness of breath No chest pain, palpitation No abdominal pain, N/V No hematuria, dysuria No constipation or diarrhea No rashes or skin changes No sore throat, nasal congestion Admits to significant back pain Physical Exam Vitals Range last 24 hrs Temperature Temp: [36.8 ??C (98.2 ??F)-37.2 ??C (99 ??F)] Heart Rate Heart Rate: -- Blood Pressure BP: (143-171)/(86-118) Respiratory Rate Resp: [18-22] SpO2 SpO2: [94 %-96 %] Intake/Output Summary (Last 24 hours) at 01/11/2023 0805 Last data filed at 01/11/2023 0300 Gross per 24 hour Intake 0 ml Output 300 ml Net -300 ml No data found. BMI: Weight: (!) 142.3 kg (313 lb 11.4 oz) (01/04/23 0021) BMI (Calculated): 45.01 BMI Classification: Morbid Obesity Estimated Creatinine Clearance: 185.8 mL/min (A) (based on SCr of 0.66 mg/dL (L)). General: Appears in mild distress due to pain. Lying in bed on back. HEENT: Normocephalic, atraumatic, symmetric. Sclera anicteric. Cardiovascular: Regular rhythm. No murmurs, rubs, gallops. Respiratory: Lungs clear to auscultation. No wheeze, rhonchi, rales. Abdominal: No lesions observed on abdomen. Normal bowel sounds. No tenderness to palpation. No hepatosplenomegaly or other masses detected. Lower Extremities: No pedal edema. Motor and sensation: - RUE:5/ - LUE:5 - RLE: 10/19 - LLE: 10/19 - LT sensation intact x 4 - Decreased strength on R foot demonstrated on dorsiflexion and plantar flexion MSK: 5+ muscle strength in bilateral biceps, triceps, fish inspector strength, knee extensors, knee flexors. Lumbar spinal and PSM tenderness reproduced. RIGHT knee edematous, no significant erythema noted. Neuro: CN III-XII intact. Sensation to touch is normal in bilateral upper and lower extremities. Cerebellar function intact as demonstrated by inqgkw-kltz-llvctk test. Studies reviewed in eDH. Remarkable for the following: LABS: Recent Labs 01/11/2334001/10/23 0115 01/09/23 014 WBC 8.3 6.7 10.2* HGB 10.3* 9.5* 10.3* HCT 32.5* 30.0* 31.5* PLATELET 305 226 206 Recent Labs 01/11/23 03401/10/23 0115 01/09/23 0142 NA 139 142 142 K 4.0 3.5 3.5 CL 103 106 105 CO2 27 BUN 10 7* 5* CREATININE 0.66* 0.61* 0.64* Recent Labs 01/11/23 03401/09/23 0142 01/07/23 0611 AST 28 22 73* ALT 51* 51* 81* ALKPHOS 118* 137* 147* BILITOT <0.2* <0.2* 0.3 BILIDIR 0.1 0.1 0.1 Recent Labs 01/11/23 0341 01/10/23 0115 01/09/23 0142 CALCIUM 8.8 8.4* 8.6 PHOS 4.2 4.6* 4.6* No results for input(s): PT, INR, PTT in the last 168 hours. No results for input(s): CK, TROPONINT in the last 168 hours. FSBG Trend No results for input(s): POCGLU in the last 72 hours. MICRO: No results for input(s): URINECULTURE in the last 720 hours. No results for input(s): GRAMSTAIN, BFCX, LOWERRESPCX, TISSUECX in the last 720 hours. Recent Labs 01/06/23 1030 01/07/23 0040 01/07/23 0051 01/08/23 0106 01/08/23 0107 01/09/23 1509 BLOODCX No growth at 4 days. No growth at 4 days. No growth at 4 days. No growth at 3 days. No growth at 3 days. No growth at 1 day. No growth at 1 day. ECG: Recent Labs 01/10/23 1751 DIAGLINE Normal sinus rhythm Right bundle branch block Abnormal ECG No previous ECGs available QTCCALC 469 VASCULAR: No results for input(s): VBTEXTRPT in the last 720 hours. IMAGING: Results for orders placed or performed during the hospital encounter of 01/03/23 XR Chest One View (Exam End: 01/03/2023 10:27 PM) Impression Low lung volumes, otherwise, no acute cardiopulmonary process. Thank you for letting us participate in the care of this patient. If you are a health care provider and have any questions regarding this report, please contact the number below. For patients who have questions please contact the health reproductive healthcare assistant that requested your imaging first. Request for 2nd read MR Spine (Exam End: 01/04/2023 12:29 AM) Impression 1. Septic right L4-5 facet joint, with associated epidural phlegmon and abscess that contributes to severe canal stenosis at L4-5. 2. No evidence of discitis/osteomyelitis. 3. Paraspinous inflammatory changes without abscess. Thank you for letting us participate in the care of this patient. If you are a health care provider and have any questions regarding this report, please contact the number below. For patients who have questions please contact the health reproductive healthcare assistant that requested your imaging first. Lumbar Spine wwo Contrast (Exam End: 01/04/2023 7:46 PM) Impression Findings suggestive of right L4-5 septic joint. Interval expansion of large dorsal epidural abscess from L3 to L5 produces severe thecal sac narrowing and compression of cauda equina nerve roots. Thank you for letting us participate in the care of this patient. If you are a health care provider and have any questions regarding this report, please contact the number below. For patients who have questions please contact the health reproductive healthcare assistant that requested your imaging first. Knee 1-2 Views Right (Generic) (Exam End: 01/05/2023 1:26 PM) Impression Moderate right knee osteoarthropathy without acute abnormality. Thank you for letting us participate in the care of this patient. If you are a health care provider and have any questions regarding this report, please contact the number below. For patients who have questions please contact the health reproductive healthcare assistant that requested your imaging first. PICC Placement Over 5 Years with Imaging Guidance (IV Team) (Exam End: 01/07/2023 10:48 AM) Impression Right upper extremity PICC with appropriate placement Thank you for letting us participate in the care of this patient. If you are a health care provider and have any questions regarding this report, please contact the number below. For patients who have questions please contact the health reproductive healthcare assistant that requested your imaging first. Chest One View (Exam End: 01/10/2023 5:25 PM) Impression Right-sided PICC ends at the mid SVC. Normal cardiopulmonary findings. Thank you for letting us participate in the care of this patient. If you are a health care provider and have any questions regarding this report, please contact the number below. For patients who have questions please contact the health reproductive healthcare assistant that requested your imaging first. Inpatient Medications: Scheduled enoxaparin 40 mg Subcutaneous Nightly methadone 45 mg Oral 2 times per day gabapentin 600 mg Oral TID acetaminophen 975 mg Oral Q6H GUANACO shift total and Settings verification Intravenous 2 Times Daily - Shift Total lidocaine 3 patch Transdermal Q24H tiZANidine 4 mg Oral Q6H vancomycin 1.75 g Intravenous Q8H sodium chloride 0.9 % (flush) 5 mL Intravenous BID sodium chloride 0.9 % (flush) 5 mL Intravenous BID nicotine 1 patch Transdermal Daily And Patch Verification 1 patch Transdermal BID Continuous infusions: ketamine 0.3 mg/kg/hr (01/11/23 0049) PRN: HYDROmorphone OR HYDROmorphone OR HYDROmorphone, hydrALAZINE, hydrOXYzine, ibuprofen, traZODone, sodium chloride 0.9 % (flush), lidocaine, sodium chloride 0.9 % (flush), lidocaine Assessment: Mesfin Lackey is a 32 y.o. female with hx of IVDU transferring from [facility] with L3-S1 epidural abscess. Interval history Patient continues complaining of severe back pain but provides a better feedback on the treatment plan today. Neurosurgery will be taking her to the OR tomorrow. We are still waiting for the MRI to be done and post the read. Will consult with BIT team to assist with the already verified methadone dose of 200mg qd. Per Neurosurgery, due to her RLE weakness progression, she met surgical criteria and initially planned for OR 01/10. However after discussion with patient, and her improved pain and improvement in strength this morning, patient would like to defer surgery for now, and notify team of any new or worsening neurologic symptoms including new worsening weakness, numbness, tingling, radicular pain / bowel/bladder retention/incontinence. Continue with medical management now we Ketamine gtt discontinued per APS, will work to up-titrate Methadone back to home dose and wean off Dilaudid. Will need discuss with BIT/ID for MDT to plan for 6 week OPAT safely given history of injection drug use. Plan: #L4-S1 Discitis w/Epidural abscess #MRSA Bacteremia # Back pain, acute # Concern for Septic RIGHT knee - Found on MRI to have evidence of L4-S1 discitis/osteomyelitis associated with epidural abscess. - Neurosurgery consult: - No need for surgical intervention at this time as she does not have neuro deficits. -01/08 Patient reports subjective R leg numbness with R knee pain. -01/09 Initially planned for OR with neurosurgery, however, per NSGY her symptoms are improving, andthe patient wants to defer surgery, continue medical management. - Neuro IR consult for questions about possible drainage.--> small collection near the right L4-5 facet joint that we might be able to aspirate on 01/07 - 01/04 MRI L spine - Confirmed discitis/osteomyelitis with epidural abscess - 01/07 IR neuro feels risks outweigh the benefits. Decided against aspiration and feel conservativemanagement is the best management for the time being. - ID Consult: -DC Rocephin, continue Vancomycin (01/04 - ) -TTE without vegetation - Daily cultures till clearance for at least 48hrs: Last growth was on 01/04 - 01/05 - 01/08 Bcx --> NGTD -Ortho consulted, -X-rays of knee ordered. appreciate their assistance- no effusion or enough fluidfrom aspiration to culture - consulted APS: 1) liberalize opioid PO sliding scale- done 01/06 2) Start Ketamine infusion for acute pain crisis. Please check QOD LFT's while on ketamine 3) Increase Gabapentin to 600 4) Continue split dose of Methadone and confirm actual dose with clinic on Saturday, 01/07---> 200mg qd. Verified on 01/09 5) Schedule Tizanidine ordered 01/06 6) Lidocaine patches x 3 (goal to generate blood level for the anti-inflammatory effects- thus the location is not important-started 01/06 7) After 48 hours of Ketoralac, please convert to PO ibuprofen- done 01/06 - 01/10 Ketamine infusion decreased 0.3mg/ Kg as pain is improving #OUD - Hx of IVDU last used on 01/02 - 01/11 - Up titrated to 50mg BID - qtc 469 - She takes 200mg qd which was verified with the [facility] [phone] on 01/09 (in addition to fentanyl usage) - Psychiatry/BIT consult: - Appreciate recs to reincorporate methadone dose of 200mg qd -Appreciate recommendations -Cannot titrate faster than 10mg QD vs QoD, daily vs QoD EKG monitoring -Will follow up note when available # Transaminitis - Likely in the setting of ketamine infusion. 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 Patient continues to feel better today with pain well controlled. She has deferred surgery at this time and MRI is not being repeated. No new complaints, tolerating vancomycin without side effects. Blood cultures from 01/08 with no growth at 48 hrs. Review of Systems: 10-point ROS: negative other than that stated above. Physical Exam: Temp: [36.8 ??C (98.2 ??F)-37.6 ??C (99.7 ??F)] Heart Rate: -- Resp: [18-20] BP: (146-207)/(88-131) SpO2: [94 %-97 %] Heart Rate from SpO2: [84 bpm-100 bpm] General appearance: alert oriented x3, no acute distress HEENT: normal oral mucosa, no cervical lymphadenopathy Lungs: clear to auscultation bilaterally, no wheezing or crackles Heart: normal S1-S2, no rub, no murmur Abdomen: soft, nontender, no guarding or rigidity, bowel sounds positive Extremities: no pitting edema, no pain at time of my exam, no new weakness Neuro: no focal neurological deficits, cranial nerves grossly intact Skin: no rash or lesions on my exam Lines: PICC line dressing CDI New Notable Labs/Micro: All labs reviewed, notable for the following: Labs: 01/10 WBC 6.7 Cr 0.61 Micro: 01/03 -01/04 blood cultures - MRSA 01/05-01/07 blood cultures - no growth 01/08 blood cultures - no growth at 2 days 01/09 blood cultures - in process New Notable Imaging/Studies: All radiographic and other studies reviewed, notable for the following: EKG/Echo - reviewed Imaging - reviewed Procedures - reveiwed External Records in [facility] - reviewed. 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 She initially presented with acute onset low back and RLE pain found on MRI to have evidence of L4-S1 discitis/osteomyelitis associated with epidural abscess and MRSA bacteremia. She has been receiving vancomycin and cleared bacteremia on 01/05 and a TTE was negative. Repeat imaging showed interval expansion of large dorsal epidural abscessfrom L3 to L5 produces severe thecal sac narrowing and compression of cauda equina nerve roots. IR guided drainage of the abscess was deferred as there were felt to be more risks due to the location of collection. Pain is better controlled now and the patient has declined surgery after talking to the neurosurgery team. She does not have any new neurologic deficits on exam. Given her overall stable condition we can plan for at least 6 weeks of parenteral therapy for epidural abscess and MRSA bacteremia. Given history of recent inject drug use there will need to a MDT meeting with BIT team invol vement prior to discharge planning. Recommendations: -Please continue vancomycin, pharmacy guided dosing (AUC 400-600) -Plan for at least 6 weeks of parenteral therapy (from 01/05-02/15) -Check at least weekly CBC and CMP to monitor for antibiotic toxicities -Pain management per primary team and acute pain service -Please engage BIT team and consider MDT meeting for discharge planning Recommendations shared with primary team. Thank you for the consultation, ID team will sign of for now. Please page [phone] with any questions. Ken Brady MD Infectious Disease Fellow 01/10/23 Associated attestation - Isaias Finney MD - 01/11/2023 12:03 AM EDT ID Attending Addendum: I have seen and examined this patient. I have reviewed and agree with the history, findings, assessment, and plan of care as documented in Dr. Brady's note. The assessment and plan were formulated indiscussion with me. Ms. Lackey continues to improve. No further fever, WBC count down to 6.7, improved strength in lower extremities, and able to walk from bed to chair and to bathroom. Neurosurgeryand additional MRI imaging deferred. She remains on IV vancomycin with her last positive blood culture on 01/04/23 (negative since 01/05/23). The plan is for 6 weeks of IV vancomycin for her MRSA bacteremia with L4-S1 discitis/osteomyelitis with an associated epidural abscess. Given her history of IVDU, we will work with BIT and OPAT to develop a safe discharge plan. Isaias Finney MD * Yoni Toscano - 01/10/2023 4:19 PM EDT Instructional Systems Design Consultant Encounter Note Patient Name: Mesfin Lackey : [id number] MR#: [id number] Admit Date: 01/03/2023 9:42 PM Hospital Day 7 days Narrative:Visited to introduce and assess acceptance of Instructional Systems Design Consultant services. Patient was sleeping and I will visit an other time. Assessment: Intervention and Outcome: Follow-up: Time in Direct Care: Yoni Toscano 01/10/2023 * Martin Hagan MD - 01/10/2023 12:25 PM EDT NEUROSURGERY PROGRESS NOTE ID: Mesfin Lackey is a 32 y.o. female not on APAC with a PMHx significant for IVDU on methadone presenting in transfer from outside hospital for acute onset low back and RLE pain found on MRI tohave evidence of L4-S1 discitis/osteomyelitis associated with epidural abscess. HD# 7 POD # Day of Surgery INTERVAL HX/ROS: -Patient feeling better this morning. Pain under better control. Strength feels improved in her lower extremities. -After a thorough risk and benefit discussion regarding the utility of surgery in the setting of symptom improvement, patient would like to defer surgery at this time. Patient was counseled in regards to the development of new or worsening neurologic symptoms and notifying medical personnel including new or worsening weakness, numbness, tingling, radicular pain, or bowel/bladder retention/incontinence. MEDICATIONS: Scheduled Meds: methadone 45 mg Oral 2 times per day gabapentin 600 mg Oral TID acetaminophen 975 mg Oral Q6H GUANACO shift total and Settings verification Intravenous 2 Times Daily - Shift Total lidocaine 3 patch Transdermal Q24H tiZANidine 4 mg Oral Q6H vancomycin 1.75 g Intravenous Q8H sodium chloride 0.9 % (flush) 5 mL Intravenous BID sodium chloride 0.9 % (flush) 5 mL Intravenous BID nicotine 1 patch Transdermal Daily And Patch Verification 1 patch Transdermal BID Continuous Infusions: ketamine (Ketalar) (10 mg/mL) in sodium chloride 0.9% 100 mL infusion 0.3 mg/kg/hr (Adjusted) Intravenous Continuous ### PRN Meds: HYDROmorphone OR HYDROmorphone OR HYDROmorphone, hydrALAZINE, hydrOXYzine, ibuprofen, traZODone, sodium chloride 0.9 % (flush), lidocaine, sodium chloride 0.9 % (flush), lidocaine EXAM: Vitals: Temp: [37 ??C (98.6 ??F)-37.6 ??C (99.7 ??F)] Heart Rate: -- Resp: [18-20] BP: (150-207)/(88-131) SpO2: [94 %-97 %] Heart Rate from SpO2: [84 bpm-100 bpm] BMI: Weight: (!) 142.3 kg (313 lb 11.4 oz) (01/04/23 0021) BMI (Calculated): 45.01 BMI Classification: Morbid Obesity I/O: I/O last 3 completed shifts: In: 1391 [P.O.:1391] Out: 3300 [Urine:3300] GEN:NAD NEURO:AA No meningismus PERRL. EOMI. No facial asymmetry Tongue midline MOTOR: RUE:5/5 LUE:5/5 RLE: 4-/5 HF, 4/5 distally LLE: 5/5 LT sensation intact x 4, though paresthesias over LLE LABS: Recent Labs 01/10/23 0115 01/09/23 0142 01/08/23 0025 WBC 6.7 10.2* 7.5 HGB 9.5* 10.3* 9.8* PLATELET 226 206 159 Recent Labs 01/10/23 0115 01/09/232 01/08/23 0025 NA 142 142 142 K 3.5 3.5 3.7 CL 106 105 106 CO2 28 27 26 BUN 7* 5* 8 CREATININE 0.61* 0.64* 0.63* No results for input(s): PT, INR in the last 72 hours. IMAGING: MRI lumbar spine wwo: R L4-5 septic facet joint with enhancement extending into the adjacent posterior paravertebral musculature discogenic edema and enhancement at L4-5 and L5-S1. No endplate marrow edema or enhancement.Diffuse circumferential epidural abscess from L3-S1, thickest at L4-5 level contributing to severe canal stenosis with crowding of the cauda equina. Lumbar vertebral body heights are maintained. No cord compression. No abnormal cord signal. Conus terminates at L1 Assessment: Mesfin Lackey is a 32 y.o. female not on APAC with a PMHx significant for IVDU on methadone presenting in transfer from outside hospital for acute onset low back and RLE pain found on MRI to have evidence of L4-S1 discitis/osteomyelitis associated with epidural abscess. 01/10: After a thorough risk and benefit discussion regarding the utility of surgery in the setting of symptom improvement, patient would like to defer surgery at this time. Patient was counseled in regards to the development of new or worsening neurologic symptoms and notifying medical personnel including new or worsening weakness, numbness, tingling, radicular pain, or bowel/bladder retention/incontinence. OR case cancelled. MRI for preoperative planning can be cancelled as well given symptom improvement. Can be given a diet and restarted on lovenox. Plan: - Q4HNC - Pain control - Imaging: Complete - DVT ppx: SCDs, OK for SQH from NSGY standpoint - Current Diet: NPO diet (Give Meds) -Further care per hospital medicine PLEASE PAGE [phone] WITH QUESTIONS Active Hospital Problems Diagnosis Epidural abscess Resolved Hospital Problems No resolved problems to display. Active Non-Hospital Problems Diagnosis CIS - Entered not Verified CIS - Cervicalgia 723.1 CIS - Lumbar Spine Pain 724.2 Martin Hagan MD 01/10/2023 * Jose Galvez, SALES STORE CHECKER - 01/10/2023 8:08 AM EDT Hospital Medicine Daily Progress Note Admit Date: 01/03/2023 Hospital Day 7 days Active Hospital Problems Diagnosis Epidural abscess Resolved Hospital Problems No resolved problems to display. 24 Hour Events: - Patient pain med changed to dilaudid sliding scale 4mg-8mg q3h prn. Gabapentin increased to 600 TID. - Ketamine infusion decreased by APS to at 0.3mg/Kg. - Psychiatry consult for resumption of already verified dose of methadone in the setting of aggressive pain control with dilaudid and ketamine infusion. -Remains afebrile, with borderline temps in high 99 range -Pain is improved, feeling better this morning, strength feels improved. -After discussion with Neurosurgery, patient would like to defer surgery at this -She will notify team of any new or worsening neurologic symptoms including new worsening weakness,numbness, tingling, radicular pain / bowel/bladder retention/incontinence. Micro: 01/03 -01/04 blood cultures - MRSA 01/05-01/07 blood cultures - no growth 01/08 blood cultures - no growth at 2 day 01/09- blood cultures re-ordered d/t fevers, pending ROS: back and hip pain, R knee pain, R leg numbness No anorexia No cough, shortness of breath No chest pain, palpitation No abdominal pain, N/V No hematuria, dysuria No constipation or diarrhea No rashes or skin changes No sore throat, nasal congestion Admits to significant back pain Physical Exam Vitals Range last 24 hrs Temperature Temp: [37 ??C (98.6 ??F)-37.6 ??C (99.7 ??F)] Heart Rate Heart Rate: -- Blood Pressure BP: (144-207)/(88-131) Respiratory Rate Resp: [18-20] SpO2 SpO2: [94 %-97 %] Intake/Output Summary (Last 24 hours) at 01/10/2023 0808 Last data filed at 01/10/2023 0621 Gross per 24 hour Intake 591 ml Output 2100 ml Net -1509 ml Patient Vitals for the past 168 hrs: Weight 01/04/23 0021 (!) 142.3 kg (313 lb 11.4 oz) 01/03/23 2159 127 kg (280 lb) BMI: Weight: (!) 142.3 kg (313 lb 11.4 oz) (01/04/23 0021) BMI (Calculated): 45.01 BMI Classification: Morbid Obesity Estimated Creatinine Clearance: 201 mL/min (A) (based on SCr of 0.61 mg/dL (L)). General: Appears in mild distress due to pain. Lying in bed on back. HEENT: Normocephalic, atraumatic, symmetric. Sclera anicteric. Cardiovascular: Regular rhythm. No murmurs, rubs, gallops. Respiratory: Lungs clear to auscultation. No wheeze, rhonchi, rales. Abdominal: No lesions observed on abdomen. Normal bowel sounds. No tenderness to palpation. No hepatosplenomegaly or other masses detected. Lower Extremities: No pedal edema. Motor and sensation: - RUE:5/5 - LUE:5/5 - RLE: 5/5 - LLE: 5/5 - LT sensation intact x 4 - Decreased strength on R foot demonstrated on dorsiflexion and plantar flexion MSK: 5+ muscle strength in bilateral biceps, triceps, fish inspector strength, knee extensors, knee flexors. Lumbar spinal and PSM tenderness reproduced. RIGHT knee edematous, no significant erythema noted. Neuro: CN III-XII intact. Sensation to touch is normal in bilateral upper and lower extremities. Cerebellar function intact as demonstrated by [id number] test. Studies reviewed in eDH. Remarkable for the following: LABS: Recent Labs 01/10/23 0115 01/09/23 0142 01/08/23 0025 WBC 6.7 10.2* 7.5 HGB 9.5* 10.3* 9.8* HCT 30.0* 31.5* 30.8* PLATELET 226 206 159 Recent Labs 01/10/23 0115 01/09/23 0142 01/08/23 0025 NA 142 142 142 K 3.5 3.5 3.7 CL 106 105 106 CO2 28 27 26 BUN 7* 5* 8 CREATININE 0.61* 0.64* 0.63* Recent Labs 01/09/23 0142 01/07/23 0611 01/03/23 2313 AST 22 73* 8 ALT 51* 81* 11 ALKPHOS 137* 147* 59 BILITOT <0.2* 0.3 0.3 BILIDIR 0.1 0.1 -- Recent Labs 01/10/23 0115 01/09/23 0142 01/08/23 0025 CALCIUM 8.4* 8.6 8.3* PHOS 4.6* 4.6* 3.6 Recent Labs 01/04/23 0056 PT 15.7* INR 1.4 No results for input(s): CK, TROPONINT in the last 168 hours. FSBG Trend No results for input(s): POCGLU in the last 72 hours. MICRO: No results for input(s): URINECULTURE in the last 720 hours. No results for input(s): GRAMSTAIN, BFCX, LOWERRESPCX, TISSUECX in the last 720 hours. Recent Labs 01/06/23 1017 01/06/23 1030 01/07/23 0040 01/07/23 0051 01/08/23 0106 01/08/23 0107 BLOODCX No growth at 3 days. No growth at 3 days. No growth at 3 days. No growth at 3 days. No growth at 2 days. No growth at 2 days. ECG: No results for input(s): DIAGLINE, QTCCALC in the last 720 hours. VASCULAR: No results for input(s): VBTEXTRPT in the last 720 hours. IMAGING: Results for orders placed or performed during the hospital encounter of 01/03/23 XR Chest One View (Exam End: 01/03/2023 10:27 PM) Impression Low lung volumes, otherwise, no acute cardiopulmonary process. Thank you for letting us participate in the care of this patient. If you are a health care provider and have any questions regarding this report, please contact the number below. For patients who have questions please contact the health reproductive healthcare assistant that requested your imaging first. Request for 2nd read MR Spine (Exam End: 01/04/2023 12:29 AM) Impression 1. Septic right L4-5 facet joint, with associated epidural phlegmon and abscess that contributes to severe canal stenosis at L4-5. 2. No evidence of discitis/osteomyelitis. 3. Paraspinous inflammatory changes without abscess. Thank you for letting us participate in the care of this patient. If you are a health care provider and have any questions regarding this report, please contact the number below. For patients who have questions please contact the health reproductive healthcare assistant that requested your imaging first. Lumbar Spine wwo Contrast (Exam End: 01/04/2023 7:46 PM) Impression Findings suggestive of right L4-5 septic joint. Interval expansion of large dorsal epidural abscess from L3 to L5 produces severe thecal sac narrowing and compression of cauda equina nerve roots. Thank you for letting us participate in the care of this patient. If you are a health care provider and have any questions regarding this report, please contact the number below. For patients who have questions please contact the health reproductive healthcare assistant that requested your imaging first. Knee 1-2 Views Right (Generic) (Exam End: 01/05/2023 1:26 PM) Impression Moderate right knee osteoarthropathy without acute abnormality. Thank you for letting us participate in the care of this patient. If you are a health care provider and have any questions regarding this report, please contact the number below. For patients who have questions please contact the health reproductive healthcare assistant that requested your imaging first. PICC Placement Over 5 Years with Imaging Guidance (IV Team) (Exam End: 01/07/2023 10:48 AM) Impression Right upper extremity PICC with appropriate placement Thank you for letting us participate in the care of this patient. If you are a health care provider and have any questions regarding this report, please contact the number below. For patients who have questions please contact the health reproductive healthcare assistant that requested your imaging first. Electronically signed by: Ignacio Shin [facility] ([phone]), at 01/07/2023 11:49 AM Inpatient Medications: Scheduled methadone 45 mg Oral 2 times per day gabapentin 600 mg Oral TID acetaminophen 975 mg Oral Q6H GUANACO shift total and Settings verification Intravenous 2 Times Daily - Shift Total lidocaine 3 patch Transdermal Q24H tiZANidine 4 mg Oral Q6H vancomycin 1.75 g Intravenous Q8H sodium chloride 0.9 % (flush) 5 mL Intravenous BID sodium chloride 0.9 % (flush) 5 mL Intravenous BID nicotine 1 patch Transdermal Daily And Patch Verification 1 patch Transdermal BID Continuous infusions: ketamine 0.5 mg/kg/hr (01/09/23 6214) PRN: HYDROmorphone OR HYDROmorphone OR HYDROmorphone, hydrALAZINE, hydrOXYzine, ibuprofen, traZODone, sodium chloride 0.9 % (flush), lidocaine, sodium chloride 0.9 % (flush), lidocaine Assessment: Mesfin Lackey is a 32 y.o. female with hx of IVDU transferring from [facility] with L3-S1 epidural abscess. Interval history Patient continues complaining of severe back pain but provides a better feedback on the treatment plan today. Neurosurgery will be taking her to the OR tomorrow. We are still waiting for the MRI to be done and post the read. Will consult with BIT team to assist with the already verified methadone dose of 200mg qd. PICC line was never cleared by ID and unfortunately she has positive Blood cultures and she gets daily BC and needs to be negative for 3 consecutive days before placing PICC so if they come back positive PICC will have to come out. Per Neurosurgery, due to her RLE weakness progression, she met surgical criteria and initially planned for OR 01/10. However after discussion with patient, and her improved pain and improvement in strength this morning, patient would like to defer surgery for now, andnotify team of any new or worsening neurologic symptoms including new worsening weakness, numbness,tingling, radicular pain / bowel/bladder retention/incontinence. Continue with medical management with Ketamine for pain per APS and Vancomycin per ID recommendations. Plan: #L4-S1 Discitis w/Epidural abscess #MRSA Bacteremia # Back pain, acute # Concern for Septic RIGHT knee - Found on MRI to have evidence of L4-S1 discitis/osteomyelitis associated with epidural abscess. - Neurosurgery consult: - No need for surgical intervention at this time as she does not have neuro deficits. -01/08 Patient reports subjective R leg numbness with R knee pain. -01/09 Initially planned for OR with neurosurgery, however, per NSGY her symptoms are improving, andthe patient wants to defer surgery, continue medical management. - Neuro IR consult for questions about possible drainage.--> small collection near the right L4-5 facet joint that we might be able to aspirate on 01/07 - 01/04 MRI L spine - Confirmed discitis/osteomyelitis with epidural abscess - 01/07 IR neuro feels risks outweigh the benefits. Decided against aspiration and feel conservativemanagement is the best management for the time being. - ID Consult: -DC Rocephin, continue Vancomycin (01/04 - ) -TTE without vegetation - Daily cultures till clearance for at least 48hrs: Last growth was on 01/04 - 01/05 - 01/08 Bcx --> NGTD -Ortho consulted, -X-rays of knee ordered. appreciate their assistance- no effusion or enough fluidfrom aspiration to culture - consulted APS: 1) liberalize opioid PO sliding scale- done 01/06 2) Start Ketamine infusion for acute pain crisis. Please check QOD LFT's while on ketamine 3) Increase Gabapentin to 600 4) Continue split dose of Methadone and confirm actual dose with clinic on Saturday, 01/07---> 200mg qd. Verified on 01/09 5) Schedule Tizanidine ordered 01/06 6) Lidocaine patches x 3 (goal to generate blood level for the anti-inflammatory effects- thus the location is not important-started 01/06 7) After 48 hours of Ketoralac, please convert to PO ibuprofen- done 01/06 - 01/10 Ketamine infusion decreased 0.3mg/ Kg as pain is improving #OUD - Hx of IVDU last used on 01/02 - Currently on 45mg BID - She takes 200mg qd which was verified with the [facility] [phone] on 01/09 (in addition to fentanyl usage) - Psychiatry/BIT consult: - Appreciate recs to reincorporate methadone dose of 200mg qd -Appreciate recommendations -Cannot titrate faster than 10mg QD vs QoD, daily vs QoD EKG monitoring -Will follow up note when available # Transaminitis - Likely in the setting of ketamine infusion. 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 Pain is categorized somatic nociceptive. Interval History: Patient was comfortable throughout the day while family was present, but again complained of unmanaged 8/10 pain overnight. She is using her Dilaudid 8mg PRN every 3hrs in addition to multimodal analgesia. Ketamine drip is currently at 0.5. Her primary team was able to contact her methadone clinic and confirmed her typical dose is 200mg of methadone daily. She is currently on 40mg BID in the hospital, BIT team was consulted to help manage uptitration to home methadone dose. This morning, she states her pain is well managed. Problem List: Active Hospital Problems Diagnosis Epidural abscess Resolved Hospital Problems No resolved problems to display. Active Non-Hospital Problems Diagnosis CIS - Entered not Verified CIS - Cervicalgia 723.1 CIS - Lumbar Spine Pain 724.2 Review of Systems: Sedation Level: DIANNA 0 Pruritis/Skin: none GI/Bowels/Nausea: none Vital Signs: Last Set of Vitals BP (!) 160/95 (BP Location (NBP): Left arm, Patient Position: Lying) Pulse (!) 102 Temp 37.6 ??C (99.7 ??F) (Oral) Resp 18 Ht 177.8 cm (5' 10) Wt (!) 142.3 kg (313 lb 11.4 oz) SpO2 96% BMI 45.01 kg/m?? Pain Scores: 9 Physical Exam: Affect: Comfortable Pain Behaviors:none Labs: WBC/Hgb/Hct/Plts: 6.7 9.5* 30.0* 226 (01/10 115) BUN/Cr/glu/ALT/AST/amyl/lip: 7/0.61/108/--/--/--/-- (01/10 115) Pertinent Medications: HYDROmorphone METHADONE ORAL ZZ IMS TEMPLATE ketamine 0.5 mg/kg/hr (01/09/23 9321) Assessment: Patient currently with good pain control. Plan: - Decrease ketamine drip to 0.3 mg/kg/hr - Monitor for sedation - f/u on OR plan with NSGY, if patient goes to OR, will reassess pain postoperatively - Continue multimodal analgesia regimen - Current methadone dose 45mg BID, continue titration to home dose with BIT recs Plan was discussed with primary team. Consult service will continue to follow patient. Tianna Del Cid MD 01/10/2023 Acute Pain Medicine Service Pager: [phone] I have seen and examined the patient. I have reviewed Dr. Del Cid's note and agree with the findings,assessment and plan. * Martin Hagan MD - 01/09/2023 10:12 PM EDT NEUROSURGERY PROGRESS NOTE ID: Mesfin Lackey is a 32 y.o. female not on APAC with a PMHx significant for IVDU on methadone presenting in transfer from outside hospital for acute onset low back and RLE pain found on MRI tohave evidence of L4-S1 discitis/osteomyelitis associated with epidural abscess. HD# 6 POD # INTERVAL HX/ROS: -Febrile yesterday to 38.4 -Patient states right leg feels weaker today. Sensory sxs and pain stable. -No bowel or bladder sxs at this time, but noted that patient hasn't had a bowel movement in a number of days while on opiates for pain control. MEDICATIONS: Scheduled Meds: methadone 45 mg Oral 2 times per day gabapentin 600 mg Oral TID acetaminophen 975 mg Oral Q6H GUANACO shift total and Settings verification Intravenous 2 Times Daily - Shift Total lidocaine 3 patch Transdermal Q24H tiZANidine 4 mg Oral Q6H vancomycin 1.75 g Intravenous Q8H sodium chloride 0.9 % (flush) 5 mL Intravenous BID sodium chloride 0.9 % (flush) 5 mL Intravenous BID nicotine 1 patch Transdermal Daily And Patch Verification 1 patch Transdermal BID Continuous Infusions: ketamine (Ketalar) (10 mg/mL) in sodium chloride 0.9% 100 mL infusion 0.5 mg/kg/hr (Adjusted) Intravenous Continuous ### PRN Meds: HYDROmorphone OR HYDROmorphone OR HYDROmorphone, hydrALAZINE, hydrOXYzine, ibuprofen, traZODone, sodium chloride 0.9 % (flush), lidocaine, sodium chloride 0.9 % (flush), lidocaine EXAM: Vitals: Temp: [37 ??C (98.6 ??F)-38.4 ??C (101.1 ??F)] Heart Rate: -- Resp: [18] BP: (118-176)/(73-104) SpO2: [91 %-96 %] Heart Rate from SpO2: [84 bpm-101 bpm] BMI: Weight: (!) 142.3 kg (313 lb 11.4 oz) (01/04/23 0021) BMI (Calculated): 45.01 BMI Classification: Morbid Obesity I/O: I/O last 3 completed shifts: In: 1631 [P.O.:1631] Out: 3700 [Urine:3700] GEN:NAD NEURO:AA No meningismus PERRL. EOMI. No facial asymmetry Tongue midline MOTOR: RUE:5/5 LUE:5/5 RLE: 4-/5 HF, 4/5 distally LLE: 5/5 LT sensation intact x 4, though paresthesias over LLE LABS: Recent Labs 01/09/23 0142 01/08/23 0025 01/07/23 0040 WBC 10.2* 7.5 7.7 HGB 10.3* 9.8* 10.1* PLATELET 206 159 153 Recent Labs 01/09/23 0142 01/08/23 0025 01/07/23 0040 NA 142 142 142 K 3.5 3.7 3.0* CL 105 106 108* CO2 27 26 24 BUN 5* 8 9 CREATININE 0.64* 0.63* 0.65* No results for input(s): PT, INR in the last 72 hours. IMAGING: MRI lumbar spine wwo: R L4-5 septic facet joint with enhancement extending into the adjacent posterior paravertebral musculature discogenic edema and enhancement at L4-5 and L5-S1. No endplate marrow edema or enhancement.Diffuse circumferential epidural abscess from L3-S1, thickest at L4-5 level contributing to severe canal stenosis with crowding of the cauda equina. Lumbar vertebral body heights are maintained. No cord compression. No abnormal cord signal. Conus terminates at L1 Assessment: Mesfin Lackey is a 32 y.o. female not on APAC with a PMHx significant for IVDU on methadone presenting in transfer from outside hospital for acute onset low back and RLE pain found on MRI to have evidence of L4-S1 discitis/osteomyelitis associated with epidural abscess. Patient's RLE weakness has progressed, meeting surgical criteria. Now recommending surgical intervention and preoperative repeat lumbar MRI. NPO midnight, hold lovenox. Plan: - Q4HNC - Pain control - Imaging: Complete - DVT ppx: SCDs, OK for SQH from NSGY standpoint - Current Diet: Regular diet NPO diet (Give Meds) -Further care per hospital medicine PLEASE PAGE [phone] WITH QUESTIONS Active Hospital Problems Diagnosis Epidural abscess Resolved Hospital Problems No resolved problems to display. Active Non-Hospital Problems Diagnosis CIS - Entered not Verified CIS - Cervicalgia 723.1 CIS - Lumbar Spine Pain 724.2 Martin Hagan MD 01/09/2023 * Ken Brady MD - 01/09/2023 2:53 PM EDT Infectious Diseases Consultation Progress Note Major 24 Hour Events / Subjective: No acute events noted over the past 24 hrs. Patient reports significant improvement in symptoms of pain this morning. She reports her sister gave her a bath in bed last night and she felt her back realign when she turned and feels improvement in pain since then. This morning she is sitting up in chair and ambulated to chair with the help of a walker. Blood cultures from 01/08 with no growth at 1day but she had a fever spike last night with leukocytosis on AM labs. We will recommend repeating blood cultures today. Repeat MRI is pending. Review of Systems: 10-point ROS: negative other than that stated above. Physical Exam: Temp: [37.4 ??C (99.3 ??F)-38.4 ??C (101.1 ??F)] Heart Rate: [102] Resp: [18-20] BP: (118-175)/(73-108) SpO2: [91 %-96 %] Heart Rate from SpO2: [84 bpm-105 bpm] General appearance: alert oriented x3, no acute distress HEENT: normal oral mucosa, no cervical lymphadenopathy Lungs: clear to auscultation bilaterally, no wheezing or crackles Heart: normal S1-S2, no rub, no murmur Abdomen: soft, nontender, no guarding or rigidity, bowel sounds positive Extremities: no pitting edema, 5/5 strength bilateral LE, no pain at time of my exam Neuro: no focal neurological deficits, cranial nerves grossly intact Skin: no new rashes Lines: dressing CDI New Notable Labs/Micro: All labs reviewed, notable for the following: Labs: 01/09 WBC 10.2 Cr 0.64 ESR 117 Micro: 01/03 -01/04 blood cultures - MRSA 01/05-01/07 blood cultures - no growth 01/08 blood cultures - no growth at 1 day New Notable Imaging/Studies: All radiographic and other studies reviewed, notable for the following: EKG/Echo - reviewed Imaging - reviewed Procedures - reveiwed External Records in [facility] - reviewed. 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 She initially presented with acute onset low back and RLE pain found on MRI to have evidence of L4-S1 discitis/osteomyelitis associated with epidural abscess. Blood cultures at OSH are now growing GPCs in clusters. She was started on vancomycin and ceftriaxone and when cultures grew MRSA ceftriaxone was discontinued. Repeat imaging over the weekend showed interval expansion of large dorsal epidural abscess from L3 to L5 produces severe thecal sac narrowing and compression of cauda equina nerve roots. IR guided drainage of the abscess was deferred as there were felt to be more risks due to the location of collection. She cleared bacteremia on 01/05 and a TTE was negative, however, she had a new fever overnight so will repeat blood cultures today. Pain is better controlled today and there are no new neurologic deficits, an MRI is pending and based on the results she may need surgical intervention if there is further progression ofabscess. Recommendations: -Please continue vancomycin, pharmacy guided dosing (AUC 400-600) -Repeat blood cultures today since patient was febrile overnight -Follow results of repeat MRI lumbar spine to assess epidural abscess progression -Check at least weekly CBC and CMP to monitor for antibiotic toxicities -Pain management per primary team and acute pain service Recommendations shared with primary team. Thank you for the consultation, we will continue to follow along. Please page [phone] with any questions. Ken Brady MD Infectious Disease Fellow 01/09/23 Associated attestation - Isaias Finney MD - 01/09/2023 11:11 PM EDT ID Attending Addendum: I have seen and examined this patient. I have reviewed and agree with the history, findings, assessment, and plan of care as documented in Dr. Brady's note. The assessment and plan were formulated indiscussion with me. Ms. Lackey was dramatically improved on my exam today. She reports that she experienced some popping sensations in her back yesterday evening and then had improvement in her pain. She was able to ambulate to sit up in a chair for most of the day. Her right lower extremity strength was improved on my exam. She was febrile to 101.1F yesterday with a WBC count up to 10.2 this morning, but she is currently therapeutic on IV vancomycin for her MRSA bacteremia/lumbar osteomyelitis /epidural abscess. First negative blood culture on 01/05/23. We requested repeat blood cultures today with the fever. Isaias Finney MD * Arabella Singh MD - 01/09/2023 9:12 AM EDT Acute Pain Medicine Service Daily Visit Note Mesfin Lackey is being evaluated for the management of their acute on chronic pain. Pain is categorized somatic nociceptive. Interval History: Patient was comfortable throughout the day while family was present, but again complained of unmanaged pain overnight. Ketamine drip was originally turned down to 0.4 due to sedation on patient eval in the AM, but increased back to 0.5 again in the PM due to pt complaints of pain. On our visit withthe patient this morning, she appeared comfortable, making a phone call, with family at bedside. Problem List: Active Hospital Problems Diagnosis Epidural abscess Resolved Hospital Problems No resolved problems to display. Active Non-Hospital Problems Diagnosis CIS - Entered not Verified CIS - Cervicalgia 723.1 CIS - Lumbar Spine Pain 724.2 Review of Systems: Sedation Level: DIANNA 0 Pruritis/Skin: none GI/Bowels/Nausea: none Vital Signs: Last Set of Vitals BP 118/73 (BP Location (NBP): Left arm, Patient Position: Lying) Pulse (!) 102 Temp 37.4 ??C (99.3 ??F) (Oral) Resp 18 Ht 177.8 cm (5' 10) Wt (!) 142.3 kg (313 lb 11.4 oz) SpO2 92% BMI45.01 kg/m?? Pain Scores: 0 Physical Exam: Affect: Comfortable, talking on the phone Pain Behaviors: none Labs: WBC/Hgb/Hct/Plts: 10.2* 10.3* 31.5* 206 (01/09 142) BUN/Cr/glu/ALT/AST/amyl/lip: 5/0.64/103/51/22/--/-- (01/09 142) Pertinent Medications: HYDROmorphone methadone METHADONE ORAL ZZ IMS TEMPLATE ketamine 0.5 mg/kg/hr (01/09/23 0252) Assessment: Patient currently with good pain control. Plan: - Continue ketamine drip at 0.5 mg/kg/hr - Monitor for sedation - Continue multimodal analgesia regimen - f/u with primary team on pt's home methadone dose Plan was discussed with primary team. Consult service will continue to follow patient. Tianna Del Cid MD 01/09/2023 Acute Pain Medicine Service Pager: [phone] I have seen and examined the patient. I have reviewed Dr. Del Cid's note and agree with the findings,assessment and plan. * Antoine Ferreira PA - 01/09/2023 8:59 AM EDT Hospital Medicine Daily Progress Note Admit Date: 01/03/2023 Hospital Day 6 days Active Hospital Problems Diagnosis Epidural abscess Resolved Hospital Problems No resolved problems to display. 24 Hour Events: - Patient complaining of back pain, though notes it is better today. Still tells me it is a 10/10. - Patient states she felt something popped last night and felt better afterwards. Wonders if the abscess popped. - No change in plans from neurosurgery perspective. - Will have a repeat lumbar spine MRI today - Patient pain med changed to dilaudid sliding scale 4mg-8mg q3h prn. Gabapentin increased to 600 TID. Ketamine infusion increased back at 0.5mg/Kg. - Not bacteremic as of 01/05. 01/06-01/08 blood cultures with NGTD - Patient had an episode of fever of 101.1 around 2350 hour last night. WBC & ANC slightly elevated. - LFTs improving, though still elevated. - Per Neurosurgery, she will be going to the OR tomorrow. NPO after midnight, Hold lovenox for now. - Psychiatry consult for resumption of already verified dose of methadone in the setting of aggressive pain control with dilaudid and ketamine infusion. ROS: back and hip pain, R knee pain, R leg numbness No anorexia No cough, shortness of breath No chest pain, palpitation No abdominal pain, N/V No hematuria, dysuria No constipation or diarrhea No rashes or skin changes No sore throat, nasal congestion Admits to significant back pain Physical Exam Vitals Range last 24 hrs Temperature Temp: [37.2 ??C (99 ??F)-38.4 ??C (101.1 ??F)] Heart Rate Heart Rate: [94-102] Blood Pressure BP: (118-190)/(73-120) Respiratory Rate Resp: [18-20] SpO2 SpO2: [91 %-97 %] Intake/Output Summary (Last 24 hours) at 01/09/2023 0859 Last data filed at 01/09/2023 0400 Gross per 24 hour Intake 1040 ml Output 2350 ml Net -1310 ml Patient Vitals for the past 168 hrs: Weight 01/04/23 0021 (!) 142.3 kg (313 lb 11.4 oz) 01/03/23 2159 127 kg (280 lb) BMI: Weight: (!) 142.3 kg (313 lb 11.4 oz) (01/04/23 0021) BMI (Calculated): 45.01 BMI Classification: Morbid Obesity Estimated Creatinine Clearance: 191.6 mL/min (A) (based on SCr of 0.64 mg/dL (L)). General: Appears in mild distress due to pain. Lying in bed on back. HEENT: Normocephalic, atraumatic, symmetric. Sclera anicteric. Cardiovascular: Regular rhythm. No murmurs, rubs, gallops. Respiratory: Lungs clear to auscultation. No wheeze, rhonchi, rales. Abdominal: No lesions observed on abdomen. Normal bowel sounds. No tenderness to palpation. No hepatosplenomegaly or other masses detected. Lower Extremities: No pedal edema. Motor and sensation: - RUE:5/5 - LUE:5/5 - RLE: 5/5 - LLE: 5/5 - LT sensation intact x 4 - Decreased strength on R foot demonstrated on dorsiflexion and plantar flexion MSK: 5+ muscle strength in bilateral biceps, triceps, fish inspector strength, knee extensors, knee flexors. Lumbar spinal and PSM tenderness reproduced. RIGHT knee edematous, no significant erythema noted. Neuro: CN III-XII intact. Sensation to touch is normal in bilateral upper and lower extremities. Cerebellar function intact as demonstrated by [id number] test. Studies reviewed in eDH. Remarkable for the following: LABS: Recent Labs 01/09/23 0142 01/08/23 0025 01/07/23 0040 WBC 10.2* 7.5 7.7 HGB 10.3* 9.8* 10.1* HCT 31.5* 30.8* 31.6* PLATELET 206 159 153 Recent Labs 01/09/23 0142 01/08/23 0025 01/07/23 0040 NA 142 142 142 K 3.5 3.7 3.0* CL 105 106 108* CO2 27 26 24 BUN 5* 8 9 CREATININE 0.64* 0.63* 0.65* Recent Labs 01/09/23 0142 01/07/23 0611 01/03/23 2313 AST 22 73* 8 ALT 51* 81* 11 ALKPHOS 137* 147* 59 BILITOT <0.2* 0.3 0.3 BILIDIR 0.1 0.1 -- Recent Labs 01/09/23 0142 01/08/23 0025 01/07/23 0040 CALCIUM 8.6 8.3* 8.3* PHOS 4.6* 3.6 3.3 Recent Labs 01/04/23 0056 PT 15.7* INR 1.4 No results for input(s): CK, TROPONINT in the last 168 hours. FSBG Trend No results for input(s): POCGLU in the last 72 hours. MICRO: No results for input(s): URINECULTURE in the last 720 hours. No results for input(s): GRAMSTAIN, BFCX, LOWERRESPCX, TISSUECX in the last 720 hours. Recent Labs 01/06/23 1017 01/06/23 1030 01/07/23 0040 01/07/23 0051 01/08/23 0106 01/08/23 0107 BLOODCX No growth at 2 days. No growth at 2 days. No growth at 2 days. No growth at 2 days. No growth at 1 day. No growth at 1 day. ECG: No results for input(s): DIAGLINE, QTCCALC in the last 720 hours. VASCULAR: No results for input(s): VBTEXTRPT in the last 720 hours. IMAGING: Results for orders placed or performed during the hospital encounter of 01/03/23 XR Chest One View (Exam End: 01/03/2023 10:27 PM) Impression Low lung volumes, otherwise, no acute cardiopulmonary process. Thank you for letting us participate in the care of this patient. If you are a health care provider and have any questions regarding this report, please contact the number below. For patients who have questions please contact the health reproductive healthcare assistant that requested your imaging first. Request for 2nd read MR Spine (Exam End: 01/04/2023 12:29 AM) Impression 1. Septic right L4-5 facet joint, with associated epidural phlegmon and abscess that contributes to severe canal stenosis at L4-5. 2. No evidence of discitis/osteomyelitis. 3. Paraspinous inflammatory changes without abscess. Thank you for letting us participate in the care of this patient. If you are a health care provider and have any questions regarding this report, please contact the number below. For patients who have questions please contact the health reproductive healthcare assistant that requested your imaging first. Lumbar Spine wwo Contrast (Exam End: 01/04/2023 7:46 PM) Impression Findings suggestive of right L4-5 septic joint. Interval expansion of large dorsal epidural abscess from L3 to L5 produces severe thecal sac narrowing and compression of cauda equina nerve roots. Thank you for letting us participate in the care of this patient. If you are a health care provider and have any questions regarding this report, please contact the number below. For patients who have questions please contact the health reproductive healthcare assistant that requested your imaging first. Knee 1-2 Views Right (Generic) (Exam End: 01/05/2023 1:26 PM) Impression Moderate right knee osteoarthropathy without acute abnormality. Thank you for letting us participate in the care of this patient. If you are a health care provider and have any questions regarding this report, please contact the number below. For patients who have questions please contact the health reproductive healthcare assistant that requested your imaging first. PICC Placement Over 5 Years with Imaging Guidance (IV Team) (Exam End: 01/07/2023 10:48 AM) Impression Right upper extremity PICC with appropriate placement Thank you for letting us participate in the care of this patient. If you are a health care provider and have any questions regarding this report, please contact the number below. For patients who have questions please contact the health reproductive healthcare assistant that requested your imaging first. Inpatient Medications: Scheduled gabapentin 600 mg Oral TID acetaminophen 975 mg Oral Q6H GUANACO shift total and Settings verification Intravenous 2 Times Daily - Shift Total lidocaine 3 patch Transdermal Q24H tiZANidine 4 mg Oral Q6H methadone 40 mg Oral 2 times per day vancomycin 1.75 g Intravenous Q8H sodium chloride 0.9 % (flush) 5 mL Intravenous BID enoxaparin 40 mg Subcutaneous Nightly sodium chloride 0.9 % (flush) 5 mL Intravenous BID nicotine 1 patch Transdermal Daily And Patch Verification 1 patch Transdermal BID Continuous infusions: ketamine 0.5 mg/kg/hr (01/09/23 0252) PRN: HYDROmorphone OR HYDROmorphone OR HYDROmorphone, hydrALAZINE, hydrOXYzine, ibuprofen, traZODone, sodium chloride 0.9 % (flush), lidocaine, sodium chloride 0.9 % (flush), lidocaine Assessment: Mesfin Lackey is a 32 y.o. female with hx of IVDU transferring from [facility] with L3-S1 epidural abscess. Interval history Patient continues complaining of severe back pain but provides a better feedback on the treatment plan today. Neurosurgery will be taking her to the OR tomorrow. We are still waiting for the MRI to be done and post the read. Will consult with BIT team to assist with the already verified methadone dose of 200mg qd. PICC line was never cleared by ID and unfortunately she has positive Blood cultures and she gets daily BC and needs to be negative for 3 consecutive days before placing PICC so if they come back positive tomorrow PICC will have to come out as she has bacteremia. Plan: #L4-S1 Discitis w/Epidural abscess #MRSA Bacteremia # Back pain, acute # Concern for Septic RIGHT knee - Found on MRI to have evidence of L4-S1 discitis/osteomyelitis associated with epidural abscess. - Neurosurgery consult: No need for surgical intervention at this time as she does not have neuro deficits. -01/08 Patient reports subjective R leg numbness with R knee pain. -01/09 Plan for OR tomorrow. NPO after midnight and lovenox on hold. - Neuro IR consult for questions about possible drainage.--> small collection near the right L4-5 facet joint that we might be able to aspirate on 01/07 - 01/04 MRI L spine Confirmed discitis/osteomyelitis with epidural abscess - 01/07 IR neuro feels risks outweigh the benefits. Decided against aspiration and feel conservativemanagement is the best management for the time being. - ID Consult: -DC Rocephin, continue Vancomycin -TTE without vegetation - Daily cultures till clearance for at least 48hrs: Last growth was on 01/04 - 01/05 - 01/08 Bcx --> NGTD - Repeat L spine MRI to assess progression if any of the abscess given the increased pain and tingling on L hip. -Ortho consulted, -X-rays of knee ordered. appreciate their assistance- no effusion or enough fluidfrom aspiration to culture - consulted APS: 1) liberalize opioid PO sliding scale- done 01/06 2) Start Ketamine infusion for acute pain crisis. Please check QOD LFT's while on ketamine 3) Increase Gabapentin to 600 4) Continue split dose of Methadone and confirm actual dose with clinic on Saturday, 01/07---> 200mg qd. Verified on 01/09 5) Schedule Tizanidine ordered 01/06 6) Lidocaine patches x 3 (goal to generate blood level for the anti-inflammatory effects- thus the location is not important-started 01/06 7) After 48 hours of Ketoralac, please convert to PO ibuprofen- done 01/06 - 01/08 Ketamine infusion increased from 0.4mg/ Kg to 0.5 mg/ Kg - Psychiatry consult:.Appreciate recs to reincorporate methadone dose of 200mg qd # Transaminitis - Likely in the setting of ketamine infusion. Improving though - Continue following labs. 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 Pt temp of 38.4c and b/p 170/104 Discussed with covering, pt had received scheduled tylenol. Continue to moitor * Kell Isaac RN - 01/08/2023 6:59 PM EDT Pt very lethargic this am, hard to arouse and did not wake up fully until after 1000. Ketamine dosedecreased to 0.4mg by APS. Prn dilaudid switched to oral. RN helped pt get cleaned up, detangled hair, brushed teeth, washed body with warm bath wipes, pt says she feel slightly better afterwards. RNencouraging pt to try alternative methods of pain relief including distraction and more positive self talk. Pt says she is trying but wants to give up, I can't do this, I can't do this. Family visit seemed to help pt mood and coping. ID ordered MRI. Numbness noted only in R foot, and some tingling in L hip area, but potentially from position. Pt received CHG bath as well. No bm. BP elevated up to 190/120, IGGY Ferreira made aware. No new orders received, r/t pain. He will come and speak withthe patient. ctm * Ken Brady MD - 01/08/2023 5:22 PM EDT Infectious Diseases Consultation Progress Note Major 24 Hour Events / Subjective: No acute events noted over the past 24 hrs. Patient examined at bedside this afternoon, she was crying out loud due to severity of pain and appeared much more uncomfortable than on prior days. Pain is now involving the left side which she reports is new and she has very limited movement due to pain. Continues on vancomycin with clearance of bacteremia on 01/05. I discussed her vancomycin dosing with the pharmacist and her AUC is 499 which is within the optimal range. Review of Systems: 10-point ROS: negative other than that stated above. Physical Exam: Temp: [37.2 ??C (99 ??F)-37.9 ??C (100.2 ??F)] Heart Rate: [74-102] Resp: [16-22] BP: (137-190)/(71-120) SpO2: [92 %-97 %] Heart Rate from SpO2: [78 bpm-105 bpm] Able to perform limited exam due to pain General appearance: distress due to pain, crying Lungs: clear to auscultation bilaterally, no wheezing or crackles Heart: normal S1-S2, no rub, no murmur Extremities: RLE 4/5 strength, unable to assess left since she could not move more Lines: dressing CDI New Notable Labs/Micro: All labs reviewed, notable for the following: Labs: 01/08 WBC 7.5 Cr 0.63 Micro: 01/03 -01/04 blood cultures - MRSA 01/05 blood cultures - no growth at 3 days 01/06 blood cultures - no growth at 2 day 01/07 blood cultures - no growth at 1 day 01/08 blood cultures - in process New Notable Imaging/Studies: All radiographic and other studies reviewed, notable for the following: EKG/Echo - reviewed 01/04 TTE - Left ventricle is of normal size. Wall thickness is normal. Left ventricular systolic function is normal. The left ventricular ejection fraction is 69% by Shell's biplane. There are no segmental wall motion abnormalities. The right ventricle is of normal size. Right ventricular systolic function is normal. Imaging - reviewed 01/04 MRI spine - Findings suggestive of right L4-5 septic joint. Interval expansion of large dorsalepidural abscess from L3 to L5 produces severe thecal sac narrowing and compression of cauda equinanerve roots. 01/03 MRI spine (2nd read 01/04) - Septic right L4-5 facet joint, with associated epidural phlegmon and abscess that contributes to severe canal stenosis at L4-5. No evidence of discitis/osteomyelitis.Paraspinous inflammatory changes without abscess. Procedures - reveiwed External Records in [facility] - reviewed. 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 She initially presented with acute onset low back and RLE pain found on MRI to have evidence of L4-S1 discitis/osteomyelitis associated with epidural abscess. Blood cultures at OSH are now growing GPCs in clusters. She was started on vancomycin and ceftriaxone and when cultures grew MRSA ceftriaxone was discontinued. Repeat imaging over the weekend showed interval expansion of large dorsal epidural abscess from L3 to L5 produces severe thecal sac narrowing and compression of cauda equina nerve roots. IR guided drainage of the abscess was deferred as there were felt to be more risks due to the location of collection. She cleared bacteremia on 01/05 and a TTE was negative. Today she has worsening pain and progression of pain to left side which is new, we would thus recommend repeat MRI to assess for disease progression. For now we will continue on the current dose of vancomycin since her AUC is 499. Recommendations: -Please continue vancomycin, pharmacy guided dosing (AUC 400-600) -Repeat MRI lumbar spine to assess epidural abscess progression -May stop daily blood cultures -Check at least weekly CBC and CMP to monitor for antibiotic toxicities -Pain management per primary team and acute pain service Recommendations shared with primary team. Thank you for the consultation, we will continue to follow along. Please page [phone] with any questions. Ken Brady MD Infectious Disease Fellow 01/08/23 Associated attestation - Isaias Finney MD - 01/08/2023 7:50 PM EDT ID Attending Addendum: I have seen and examined this patient. I have reviewed and agree with the history, findings, assessment, and plan of care as documented in Dr. Brady's note. The assessment and plan were formulated indiscussion with me. Tmax 100.2 with last WBC count of 7.5. On exam, Ms. Lackey continues to have significant pain, now involving her left leg in addition to her right leg. She has some diminished strength and more diminished sensation (subjective) in right lower extremity. We have recommended a repeat MRI (last done on 01/04/23. The concern is that her epidural abscess may be progressing despite adequately dosed IV vancomycin (AUC 499). She cleared her bacteremia on 01/05/23. Recommend repeating a CRP to see if now trending down. I discussed the plan with Ms. Lackey and her family. They are concerned about her level of pain. She is currently requiring a ketamine drip. Isaias Finney MD * Antoine Ferreira PA - 01/08/2023 1:17 PM EDT Hospital Medicine Daily Progress Note Admit Date: 01/03/2023 Hospital Day 5 days Active Hospital Problems Diagnosis Epidural abscess Resolved Hospital Problems No resolved problems to display. 24 Hour Events: - Patient complaining of severe back pain. - Patient reports R leg numbness along with R knee pain which she alleges started on Saturday. She also complains of tingling on her L hip and R hip pain.Will consult neurosurgery for evaluation. - APS following as pain may need optimization. Ketamine drip increased to 0.5mg/kg was on 0.4mg/Kg - continue daily blood cultures, last positive was 01/04, 01/05, 01/06, 01/07 NGTD - No acute events overnight ROS: back and hip pain, R knee pain, R leg numbness No anorexia No cough, shortness of breath No chest pain, palpitation No abdominal pain, N/V No hematuria, dysuria No constipation or diarrhea No rashes or skin changes No sore throat, nasal congestion Admits to significant back pain Physical Exam Vitals Range last 24 hrs Temperature Temp: [37.2 ??C (99 ??F)-37.7 ??C (99.9 ??F)] Heart Rate Heart Rate: [74-94] Blood Pressure BP: (137-190)/(71-120) Respiratory Rate Resp: [16-22] SpO2 SpO2: [89 %-97 %] Intake/Output Summary (Last 24 hours) at 01/08/2023 1319 Last data filed at 01/08/2023 1312 Gross per 24 hour Intake 340 ml Output 1700 ml Net -1360 ml Patient Vitals for the past 168 hrs: Weight 01/04/23 0021 (!) 142.3 kg (313 lb 11.4 oz) 01/03/23 2159 127 kg (280 lb) BMI: Weight: (!) 142.3 kg (313 lb 11.4 oz) (01/04/23 0021) BMI (Calculated): 45.01 BMI Classification: Morbid Obesity Estimated Creatinine Clearance: 194.7 mL/min (A) (based on SCr of 0.63 mg/dL (L)). General: Appears in mild distress due to pain. Lying in bed on back. HEENT: Normocephalic, atraumatic, symmetric. Sclera anicteric. Cardiovascular: Regular rhythm. No murmurs, rubs, gallops. Respiratory: Lungs clear to auscultation. No wheeze, rhonchi, rales. Abdominal: No lesions observed on abdomen. Normal bowel sounds. No tenderness to palpation. No hepatosplenomegaly or other masses detected. Lower Extremities: No pedal edema. Motor and sensation: - RUE:5/5 - LUE:5/5 - RLE: 5/5 - LLE: 5/5 - LT sensation intact x 4 - Decreased strength on R foot demonstrated on dorsiflexion and plantar flexion MSK: 5+ muscle strength in bilateral biceps, triceps, fish inspector strength, knee extensors, knee flexors. Lumbar spinal and PSM tenderness reproduced. RIGHT knee edematous, no significant erythema noted. Neuro: CN III-XII intact. Sensation to touch is normal in bilateral upper and lower extremities. Cerebellar function intact as demonstrated by [id number] test. Studies reviewed in [facility]. Remarkable for the following: LABS: Recent Labs 01/08/23 0025 01/07/23 0040 01/06/23 0648 WBC 7.5 7.7 6.5 HGB 9.8* 10.1* 10.4* HCT 30.8* 31.6* 32.7* PLATELET 159 153 115* Recent Labs 01/08/23 0025 01/07/23 0040 01/06/23 0648 NA 142 142 138 K 3.7 3.0* 3.6 CL 106 108* 105 CO2 24 22 BUN 8 9 16 CREATININE 0.63* 0.65* 0.66* Recent Labs 01/07/23 0611 01/03/23 2313 AST 73* 8 ALT 81* 11 ALKPHOS 147* 59 BILITOT 0.3 0.3 BILIDIR 0.1 -- Recent Labs 01/08/23 0025 01/07/23 0040 01/06/23 0648 CALCIUM 8.3* 8.3* 8.3* PHOS 3.6 3.3 3.5 Recent Labs 01/04/23 0056 PT 15.7* INR 1.4 No results for input(s): CK, TROPONINT in the last 168 hours. FSBG Trend No results for input(s): POCGLU in the last 72 hours. MICRO: No results for input(s): URINECULTURE in the last 720 hours. No results for input(s): GRAMSTAIN, BFCX, LOWERRESPCX, TISSUECX in the last 720 hours. Recent Labs 01/05/23 0900 01/05/23 0920 01/06/23 1017 01/06/23 1030 01/07/23 0040 01/07/23 0051 BLOODCX No growth at 2 days. No growth at 2 days. No growth at 1 day. No growth at 1 day. No growthat 1 day. No growth at 1 day. ECG: No results for input(s): DIAGLINE, QTCCALC in the last 720 hours. VASCULAR: No results for input(s): VBTEXTRPT in the last 720 hours. IMAGING: Results for orders placed or performed during the hospital encounter of 01/03/23 XR Chest One View (Exam End: 01/03/2023 10:27 PM) Impression Low lung volumes, otherwise, no acute cardiopulmonary process. Thank you for letting us participate in the care of this patient. If you are a health care provider and have any questions regarding this report, please contact the number below. For patients who have questions please contact the health reproductive healthcare assistant that requested your imaging first. Request for 2nd read MR Spine (Exam End: 01/04/2023 12:29 AM) Impression 1. Septic right L4-5 facet joint, with associated epidural phlegmon and abscess that contributes to severe canal stenosis at L4-5. 2. No evidence of discitis/osteomyelitis. 3. Paraspinous inflammatory changes without abscess. Thank you for letting us participate in the care of this patient. If you are a health care provider and have any questions regarding this report, please contact the number below. For patients who have questions please contact the health reproductive healthcare assistant that requested your imaging first. Lumbar Spine wwo Contrast (Exam End: 01/04/2023 7:46 PM) Impression Findings suggestive of right L4-5 septic joint. Interval expansion of large dorsal epidural abscess from L3 to L5 produces severe thecal sac narrowing and compression of cauda equina nerve roots. Thank you for letting us participate in the care of this patient. If you are a health care provider and have any questions regarding this report, please contact the number below. For patients who have questions please contact the health reproductive healthcare assistant that requested your imaging first. Knee 1-2 Views Right (Generic) (Exam End: 01/05/2023 1:26 PM) Impression Moderate right knee osteoarthropathy without acute abnormality. Thank you for letting us participate in the care of this patient. If you are a health care provider and have any questions regarding this report, please contact the number below. For patients who have questions please contact the health reproductive healthcare assistant that requested your imaging first. PICC Placement Over 5 Years with Imaging Guidance (IV Team) (Exam End: 01/07/2023 10:48 AM) Impression Right upper extremity PICC with appropriate placement Thank you for letting us participate in the care of this patient. If you are a health care provider and have any questions regarding this report, please contact the number below. For patients who have questions please contact the health reproductive healthcare assistant that requested your imaging first. Inpatient Medications: Scheduled acetaminophen 975 mg Oral Q6H GUANACO shift total and Settings verification Intravenous 2 Times Daily - Shift Total lidocaine 3 patch Transdermal Q24H tiZANidine 4 mg Oral Q6H gabapentin 300 mg Oral TID methadone 40 mg Oral 2 times per day vancomycin 1.75 g Intravenous Q8H sodium chloride 0.9 % (flush) 5 mL Intravenous BID enoxaparin 40 mg Subcutaneous Nightly sodium chloride 0.9 % (flush) 5 mL Intravenous BID nicotine 1 patch Transdermal Daily And Patch Verification 1 patch Transdermal BID Continuous infusions: ketamine 0.4 mg/kg/hr (01/08/23 0751) PRN: hydrOXYzine, ibuprofen, HYDROmorphone OR HYDROmorphone OR HYDROmorphone, traZODone, sodium chloride 0.9 % (flush), lidocaine, sodium chloride 0.9 % (flush), lidocaine Assessment: Mesfin Lackey is a 32 y.o. female with hx of IVDU transferring from [facility] with L3-S1 epidural abscess. Interval history Patient complaining of severe back pain and APS continue following. IR neuro contacted and they hadplan for aspiration today, however they decided against as they feel this might not be the most beneficial route of tx for the patient. Continue working with neurosurgery, ID and APS. Daily blood cultures, last positive was 01/04, awaiting 01/05 positive. 01/06 and 01/07 cultures NGTD. PICC line was never cleared by ID and unfortunately she has positive Blood cultures and she gets daily BC and needs to be negative for 3 consecutive days before placing PICC so if they come back positive tomorrow PICC will have to come out as she has bacteremia. Plan: #L4-S1 Discitis w/Epidural abscess #MRSA Bacteremia # Back pain, acute # Concern for Septic RIGHT knee - Found on MRI to have evidence of L4-S1 discitis/osteomyelitis associated with epidural abscess. - Neurosurgery consult: No need for surgical intervention at this time as she does not have neuro deficits. -01/08 Patient reports subjective R leg numbness with R knee pain. - Neuro IR consult for questions about possible drainage.--> small collection near the right L4-5 facet joint that we might be able to aspirate on 01/07 - 01/04 MRI L spine Confirmed discitis/osteomyelitis with epidural abscess - 01/07 IR neuro feels risks outweigh the benefits. Decided against aspiration and feel conservativemanagement is the best management for the time being. - ID consulted, appreciate their recommendations -DC Rocephin, continue Vancomycin -TTE without vegetation - Daily cultures till clearance for at least 48hrs: Last growth was on 01/04 - 01/05 - 01/07 Bcx --> NGTD - Repeat L spine MRI to assess progression if any of the abscess given the increased pain and tingling on L hip. - Pain control: sliding scale dilaudid IV -X-rays of knee ordered -Ortho consulted, appreciate their assistance- no effusion or enough fluid from aspiration to culture - consulted APS: 1) liberalize opioid PO sliding scale- done 01/06 2) Start Ketamine infusion for acute pain crisis. Please check QOD LFT's while on ketamine 3) Given neurological process and baseline Gabapentin use, will order Gabapentin. We can start at 300 TID (although she looks like she was on 600 TID). Started 01/06 4) Continue split dose of Methadone and confirm actual dose with clinic on Saturday, 01/07 5) Schedule Tizanidine ordered 01/06 6) Lidocaine patches x 3 (goal to generate blood level for the anti-inflammatory effects- thus the location is not important-started 01/06 7) After 48 hours of Ketoralac, please convert to PO ibuprofen- done 01/06 - 01/08 Ketamine infusion increased from 0.4mg/ Kg to 0.5 mg/ Kg # Transaminitis - Likely in the setting of ketamine infusion - Continue following labs. 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 Pain is categorized somatic nociceptive. Interval History: Patient was comfortable throughout the day yesterday and was difficult to rouse intermittently due to sedation on Ketamine drip. Overnight, she had significant pain and was reported by nursing to be screaming throughout the night. She was given her PRN dilaudid x 3 and was able to sleep after 4:00am. On rounds around 8:00am, patient was again somnolent and difficult to arouse. Problem List: Active Hospital Problems Diagnosis Epidural abscess Resolved Hospital Problems No resolved problems to display. Active Non-Hospital Problems Diagnosis CIS - Entered not Verified CIS - Cervicalgia 723.1 CIS - Lumbar Spine Pain 724.2 Review of Systems: Sedation Level: DIANNA -1 Pruritis/Skin: none GI/Bowels/Nausea: none Vital Signs: Last Set of Vitals BP 145/86 (BP Location (NBP): Left arm, Patient Position: Lying) Pulse 74 Temp 37.2 ??C (99 ??F) (Axillary) Resp 16 Ht 177.8 cm (5' 10) Wt (!) 142.3 kg (313 lb 11.4 oz) SpO2 94% BMI 45.01 kg/m?? Pain Scores: 10 Physical Exam: Affect: somnolent, AAOx2 Pain Behaviors: mild grimacing when asked about pain level Labs: WBC/Hgb/Hct/Plts: 7.5 9.8* 30.8* 159 (01/08 0025) BUN/Cr/glu/ALT/AST/amyl/lip: 8/0.63/109/--/--/--/-- (01/08 0025) Pertinent Medications: HYDROmorphone methadone METHADONE ORAL ketamine 0.4 mg/kg/hr (01/08/23 1091) Assessment: Patient currently complaining of acute nociceptive and neuropathic pain due to epidural infection/abscess complicated by chronic back pain and active opioid use disorder. Pain seems adequately managed at this time with Ketamine drip, but need to balance pain control with sedation. Plan: - Continue Ketamine, decreased dose to 0.4 due to sedation - Continue multimodal analgesia Plan was discussed with primary team. Consult service will continue to follow patient. Tianna Del Cid MD 01/08/2023 Acute Pain Medicine Service Pager: [phone] I have seen and examined the patient. I have reviewed Dr. Del Cid's note and agree with the findings,assessment and plan. * Martin Hagan MD - 01/08/2023 5:52 AM EDT NEUROSURGERY PROGRESS NOTE ID: Mesfin Lackey is a 32 y.o. female not on APAC with a PMHx significant for IVDU on methadone presenting in transfer from outside hospital for acute onset low back and RLE pain found on MRI tohave evidence of L4-S1 discitis/osteomyelitis associated with epidural abscess. HD# 6 POD # INTERVAL HX/ROS: -NAEON MEDICATIONS: Scheduled Meds: gabapentin 600 mg Oral TID acetaminophen 975 mg Oral Q6H GUANACO shift total and Settings verification Intravenous 2 Times Daily - Shift Total lidocaine 3 patch Transdermal Q24H tiZANidine 4 mg Oral Q6H methadone 40 mg Oral 2 times per day vancomycin 1.75 g Intravenous Q8H sodium chloride 0.9 % (flush) 5 mL Intravenous BID enoxaparin 40 mg Subcutaneous Nightly sodium chloride 0.9 % (flush) 5 mL Intravenous BID nicotine 1 patch Transdermal Daily And Patch Verification 1 patch Transdermal BID Continuous Infusions: ketamine (Ketalar) (10 mg/mL) in sodium chloride 0.9% 100 mL infusion 0.5 mg/kg/hr (Adjusted) Intravenous Continuous ### PRN Meds: HYDROmorphone OR HYDROmorphone OR HYDROmorphone, hydrALAZINE, hydrOXYzine, ibuprofen, traZODone, sodium chloride 0.9 % (flush), lidocaine, sodium chloride 0.9 % (flush), lidocaine EXAM: Vitals: Temp: [37.2 ??C (99 ??F)-38.4 ??C (101.1 ??F)] Heart Rate: [74-102] Resp: [16-20] BP: (118-190)/(81-120) SpO2: [91 %-97 %] Heart Rate from SpO2: [78 bpm-105 bpm] BMI: Weight: (!) 142.3 kg (313 lb 11.4 oz) (01/04/2320) BMI (Calculated): 45.01 BMI Classification: Morbid Obesity I/O: I/O last 3 completed shifts: In: 580 [P.O.:580] Out: 2049 [Urine:2049] GEN:NAD NEURO:AA No meningismus PERRL. EOMI. No facial asymmetry Tongue midline MOTOR: RUE:5/5 LUE:5/5 RLE: 4+/5 throughout LLE: 5/5 LT sensation intact x 4, though paresthesias over LLE LABS: Recent Labs 01/09/23 0142 01/08/23 0025 01/07/23 0040 WBC 10.2* 7.5 7.7 HGB 10.3* 9.8* 10.1* PLATELET 206 159 153 Recent Labs 01/09/23 0142 01/08/23 0025 01/07/23 0040 NA 142 142 142 K 3.5 3.7 3.0* CL 105 106 108* CO2 27 26 24 BUN 5* 8 9 CREATININE 0.64* 0.63* 0.65* No results for input(s): PT, INR in the last 72 hours. IMAGING: MRI lumbar spine wwo: R L4-5 septic facet joint with enhancement extending into the adjacent posterior paravertebral musculature discogenic edema and enhancement at L4-5 and L5-S1. No endplate marrow edema or enhancement.Diffuse circumferential epidural abscess from L3-S1, thickest at L4-5 level contributing to severe canal stenosis with crowding of the cauda equina. Lumbar vertebral body heights are maintained. No cord compression. No abnormal cord signal. Conus terminates at L1 Assessment: Mesfin Lackey is a 32 y.o. female not on APAC with a PMHx significant for IVDU on methadone presenting in transfer from outside hospital for acute onset low back and RLE pain found on MRI to have evidence of L4-S1 discitis/osteomyelitis associated with epidural abscess. Consideringsurgical intervention if patient's exam declines. Plan: - Q4HNC - Pain control - Imaging: Complete - DVT ppx: SCDs, OK for SQH from NSGY standpoint - Current Diet: Regular diet -Further care per hospital medicine PLEASE PAGE [phone] WITH QUESTIONS Active Hospital Problems Diagnosis Epidural abscess Resolved Hospital Problems No resolved problems to display. Active Non-Hospital Problems Diagnosis CIS - Entered not Verified CIS - Cervicalgia 723.1 CIS - Lumbar Spine Pain 724.2 Martin Hagan MD 01/09/2023 * Martin Hagan MD - 01/07/2023 2:50 PM EDT NEUROSURGERY PROGRESS NOTE ID: Mesfin Lackey is a 32 y.o. female not on APAC with a PMHx significant for IVDU on methadone presenting in transfer from outside hospital for acute onset low back and RLE pain found on MRI tohave evidence of L4-S1 discitis/osteomyelitis associated with epidural abscess. HD# 4 POD # INTERVAL HX/ROS: -Awaiting IR biopsy/drainage of abscess. -NAEON -On IV Vanc MEDICATIONS: Scheduled Meds: acetaminophen 975 mg Oral Q6H GUANACO shift total and Settings verification Intravenous 2 Times Daily - Shift Total lidocaine 3 patch Transdermal Q24H tiZANidine 4 mg Oral Q6H gabapentin 300 mg Oral TID methadone 40 mg Oral 2 times per day vancomycin 1.75 g Intravenous Q8H sodium chloride 0.9 % (flush) 5 mL Intravenous BID enoxaparin 40 mg Subcutaneous Nightly sodium chloride 0.9 % (flush) 5 mL Intravenous BID nicotine 1 patch Transdermal Daily And Patch Verification 1 patch Transdermal BID Continuous Infusions: ketamine (Ketalar) (10 mg/mL) in sodium chloride 0.9% 100 mL infusion 0.5 mg/kg/hr (Adjusted) Intravenous Continuous ### PRN Meds: hydrOXYzine, ibuprofen, HYDROmorphone OR HYDROmorphone OR HYDROmorphone, traZODone, sodium chloride 0.9 % (flush), lidocaine, sodium chloride 0.9 % (flush), lidocaine EXAM: Vitals: Temp: [37.3 ??C (99.1 ??F)-37.6 ??C (99.7 ??F)] Heart Rate: [83-93] Resp: [15-18] BP: (138-162)/(83-107) SpO2: [89 %-96 %] Heart Rate from SpO2: [69 bpm-96 bpm] BMI: Weight: (!) 142.3 kg (313 lb 11.4 oz) (01/04/23 0021) BMI (Calculated): 45.01 BMI Classification: Morbid Obesity I/O: I/O last 3 completed shifts: In: 1510 [P.O.:1010; I.V.:500] Out: 1950 [Urine:1950] GEN:NAD NEURO:AA No meningismus PERRL. EOMI. No facial asymmetry Tongue midline MOTOR: RUE:5/5 LUE:5/5 RLE: 5/5 LLE: 5/5 LT sensation intact x 4 LABS: Recent Labs 01/07/23 0040 01/06/23 0648 01/05/23 0517 WBC 7.7 6.5 6.6 HGB 10.1* 10.4* 11.5* PLATELET 153 115* 110* Recent Labs 01/07/23 0040 01/06/23 0648 01/05/23 0517 NA 142 138 136 K 3.0* 3.6 3.4* CL 108* 105 104 CO2 24 22 21* BUN 9 16 15 CREATININE 0.65* 0.66* 0.67* No results for input(s): PT, INR in the last 72 hours. IMAGING: MRI lumbar spine wwo: R L4-5 septic facet joint with enhancement extending into the adjacent posterior paravertebral musculature discogenic edema and enhancement at L4-5 and L5-S1. No endplate marrow edema or enhancement.Diffuse circumferential epidural abscess from L3-S1, thickest at L4-5 level contributing to severe canal stenosis with crowding of the cauda equina. Lumbar vertebral body heights are maintained. No cord compression. No abnormal cord signal. Conus terminates at L1 Assessment: Mesfin Lackey is a 32 y.o. female not on APAC with a PMHx significant for IVDU on methadone presenting in transfer from outside hospital for acute onset low back and RLE pain found on MRI to have evidence of L4-S1 discitis/osteomyelitis associated with epidural abscess. Awaiting IR biopsy/drainage of abscess. Plan: - Q4HNC - Pain control - Imaging: Complete - DVT ppx: SCDs, OK for SQH from NSGY standpoint - Current Diet: NPO diet (Give Meds) -Further care per hospital medicine PLEASE PAGE [phone] WITH QUESTIONS Active Hospital Problems Diagnosis Epidural abscess Resolved Hospital Problems No resolved problems to display. Active Non-Hospital Problems Diagnosis CIS - Entered not Verified CIS - Cervicalgia 723.1 CIS - Lumbar Spine Pain 724.2 Martin Hagan MD 01/07/2023 * Ken Brady MD - 01/07/2023 9:55 AM EDT Infectious Diseases Consultation Progress Note Major 24 Hour Events / Subjective: No acute events noted over the past 24 hrs. Continues on vancomycin with AUC dosing. She continues to experience significant right sided pain and is planned for IR guided drainage. Repeat MRI from 01/04 showed interval expansion of large dorsal epidural abscess from L3 to L5 produces severe thecal sac narrowing and compression of cauda equina nerve roots. She was also reporting right knee pain butXray on 01/05 did not show any acute abnormality. Blood cultures from 01/05 are now negative at 48hrs. Review of Systems: 10-point ROS: negative other than that stated above. Physical Exam: Temp: [37.2 ??C (99 ??F)-37.6 ??C (99.7 ??F)] Heart Rate: [84-102] Resp: [15-18] BP: (138-162)/(82-107) SpO2: [92 %-96 %] Heart Rate from SpO2: [78 bpm-96 bpm] General appearance: alert oriented x3, no acute distress HEENT: normal oral mucosa, no cervical lymphadenopathy Lungs: clear to auscultation bilaterally, no wheezing or crackles Heart: normal S1-S2, no rub, no murmur Abdomen: soft, nontender, no guarding or rigidity, bowel sounds positive Extremities: no pitting edema, right leg restricted ROM due to pain, strength 5/5 Neuro: no focal neurological deficits, cranial nerves grossly intact Skin: track melendez on arms and excoriations on back Lines: dressing CDI New Notable Labs/Micro: All labs reviewed, notable for the following: Labs: 01/07 WBC 7.7 Cr 0.65 Micro: 01/03 -01/04 blood cultures - MRSA 01/05 blood cultures - no growth at 2 days 01/06 blood cultures - no growth at 1 day 01/07 blood cultures - New Notable Imaging/Studies: All radiographic and other studies reviewed, notable for the following: EKG/Echo - reviewed 01/04 TTE - Left ventricle is of normal size. Wall thickness is normal. Left ventricular systolic function is normal. The left ventricular ejection fraction is 69% by Shell's biplane. There are no segmental wall motion abnormalities. The right ventricle is of normal size. Right ventricular systolic function is normal. Imaging - reviewed 01/04 MRI spine - Findings suggestive of right L4-5 septic joint. Interval expansion of large dorsalepidural abscess from L3 to L5 produces severe thecal sac narrowing and compression of cauda equinanerve roots. 01/03 MRI spine (2nd read 01/04) - Septic right L4-5 facet joint, with associated epidural phlegmon and abscess that contributes to severe canal stenosis at L4-5. No evidence of discitis/osteomyelitis.Paraspinous inflammatory changes without abscess. Procedures - reveiwed External Records in [facility] - reviewed. 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 She initially presented with acute onset low back and RLE pain found on MRI to have evidence of L4-S1 discitis/osteomyelitis associated with epidural abscess. Blood cultures at OSH are now growing GPCs in clusters. She was started on vancomycin and ceftriaxone and when cultures grew MRSA ceftriaxone was discontinued. Repeat imaging over the weekend showed interval expansion of large dorsal epidural abscess from L3 to L5 produces severe thecal sac narrowing and compression of cauda equina nerve roots. She is now planned for IR guided dra [place] of the abscess. She cleared bacteremia on 01/05 and a TTE was negative. We will likely need toconsider at least a 6 week course of antibiotics once we have achieved source control. Recommendations: -Please continue vancomycin, pharmacy guided dosing (AUC 400-600) -Follow blood cultures, repeat daily until clearance of bacteremia established for 48 hrs -Check at least weekly CBC and CMP to assess for antibiotic mediated toxicities Recommendations shared with primary team. Thank you for the consultation, we will continue to follow along. Please page [phone] with any questions. Ken Brady MD Infectious Disease Fellow 01/07/23 Associated attestation - Isaias Finney MD - 01/08/2023 12:16 AM EDT ID Attending Addendum: I have seen and examined this patient. I have reviewed and agree with the history, findings, assessment, and plan of care as documented in Dr. Brady's note. The assessment and plan were formulated indiscussion with me. In short, Ms. Lackey is a 32y/o F PWID with a history of opiate use disorder (on methadone) who is currently admitted with MRSA bacteremia with L4-S1 discitis/osteomyelitis with an associated epidural abscess. Blood cultures from 01/05/23 remain negative (last positive on 01/04/23). MRI on 01/04/23 concerning for: Interval expansion of large dorsal epidural abscess from L3 to L5 [which] produces severe thecal sac narrowing and compression of cauda equina nerve roots. CRP 190.5mg/L on 01/03/23 -> 225.4mg/L on 01/05/23. TTE on 01/04/23 without vegetation. We will touch base with pharmacy about vancomycin dosing. This is being dosed based on AUC, although current trough <15. IR unable to drain the epidural collection. I spoke with Dr. Arboleda (Neurosurgery). He is concerned about the complicated surgical approach given Ms. Lackey's obesity and the location of the abscess. He would consider surgery if things progress. I agreed with plan to follow closely on medical therapy. Of note, when I examined her this evening, she had right > left pain with some decrease in rightplantarflexion and subjective decreased sensation in right leg, but gross sensation intact. Isaias Finney MD * Antoine Ferreira PA - 01/07/2023 9:21 AM EDT Hospital Medicine Daily Progress Note Admit Date: 01/03/2023 Hospital Day 4 days Active Hospital Problems Diagnosis Epidural abscess Resolved Hospital Problems No resolved problems to display. 24 Hour Events: - K levels low. Repleted - Patient complaining of severe back pain. - IR neuro contacted and they had plan for aspiration today, however they decided against as they feel this might not be the most beneficial route of tx for the patient. Continue working with neurosurgery, ID and APS. - APS following as pain may need optimization. - continue daily blood cultures, last positive was 01/04, awaiting 01/05 positive. 01/06 and 01/07 cultures NGTD. - No acute events overnight ROS: back and hip pain No anorexia No cough, shortness of breath No chest pain, palpitation No abdominal pain, N/V No hematuria, dysuria No constipation or diarrhea No rashes or skin changes No sore throat, nasal congestion Admits to significant back pain Physical Exam Vitals Range last 24 hrs Temperature Temp: [37.2 ??C (99 ??F)-37.6 ??C (99.7 ??F)] Heart Rate Heart Rate: [84-102] Blood Pressure BP: (138-162)/(82-107) Respiratory Rate Resp: [15-18] SpO2 SpO2: [92 %-96 %] Intake/Output Summary (Last 24 hours) at 01/07/2023 0921 Last data filed at 01/07/2023 0347 Gross per 24 hour Intake 630 ml Output 1950 ml Net -1320 ml Patient Vitals for the past 168 hrs: Weight 01/04/23 0021 (!) 142.3 kg (313 lb 11.4 oz) 01/03/23 2159 127 kg (280 lb) BMI: Weight: (!) 142.3 kg (313 lb 11.4 oz) (01/04/23 0021) BMI (Calculated): 45.01 BMI Classification: Morbid Obesity Estimated Creatinine Clearance: 188.7 mL/min (A) (based on SCr of 0.65 mg/dL (L)). General: Appears in mild distress due to pain. Lying in bed on back. HEENT: Normocephalic, atraumatic, symmetric. Sclera anicteric. Cardiovascular: Regular rhythm. No murmurs, rubs, gallops. Respiratory: Lungs clear to auscultation. No wheeze, rhonchi, rales. Abdominal: No lesions observed on abdomen. Normal bowel sounds. No tenderness to palpation. No hepatosplenomegaly or other masses detected. Lower Extremities: No pedal edema. MSK: 5+ muscle strength in bilateral biceps, triceps, fish inspector strength, knee extensors, knee flexors. Lumbar spinal and PSM tenderness reproduced. RIGHT knee edematous, no significant erythema noted. Neuro: CN III-XII intact. Sensation to touch is normal in bilateral upper and lower extremities. Cerebellar function intact as demonstrated by [id number] test. Studies reviewed in [facility]. Remarkable for the following: LABS: Recent Labs 01/07/23 0040 01/06/23 0648 01/05/23 0517 WBC 7.7 6.5 6.6 HGB 10.1* 10.4* 11.5* HCT 31.6* 32.7* 35.2* PLATELET 153 115* 110* Recent Labs 01/07/23 0040 01/06/23 0648 01/05/23 0517 NA 142 138 136 K 3.0* 3.6 3.4* CL 108* 105 104 CO2 24 22 21* BUN 9 16 15 CREATININE 0.65* 0.66* 0.67* Recent Labs 01/07/23 0611 01/03/23 2313 AST 73* 8 ALT 81* 11 ALKPHOS 147* 59 BILITOT 0.3 0.3 BILIDIR 0.1 -- Recent Labs 01/07/23 0040 01/06/23 0648 01/05/23 0517 CALCIUM 8.3* 8.3* 8.3* PHOS 3.3 3.5 2.7 Recent Labs 01/04/23 0056 PT 15.7* INR 1.4 No results for input(s): CK, TROPONINT in the last 168 hours. FSBG Trend No results for input(s): POCGLU in the last 72 hours. MICRO: No results for input(s): URINECULTURE in the last 720 hours. No results for input(s): GRAMSTAIN, BFCX, LOWERRESPCX, TISSUECX in the last 720 hours. Recent Labs 01/03/23 2313 01/04/23 1400 01/04/23 1450 01/05/23 0900 01/05/23 0920 BLOODCX Staphylococcus aureus, MRSA isolated Susceptibilities previously reported * Staphylococcus aureus, MRSA detected by PCR Isolate saved. If future testing is required, contact the Microbiology Environmental Emergencies Assistant. * Staphylococcus aureus, MRSA isolated Susceptibilities previously reported * Staphylococcus aureus, MRSA isolated Susceptibilities previously reported * No growth at 1 day. No growth at 1 day. ECG: No results for input(s): DIAGLINE, QTCCALC in the last 720 hours. VASCULAR: No results for input(s): VBTEXTRPT in the last 720 hours. IMAGING: Results for orders placed or performed during the hospital encounter of 01/03/23 XR Chest One View (Exam End: 01/03/2023 10:27 PM) Impression Low lung volumes, otherwise, no acute cardiopulmonary process. Thank you for letting us participate in the care of this patient. If you are a health care provider and have any questions regarding this report, please contact the number below. For patients who have questions please contact the health reproductive healthcare assistant that requested your imaging first. Request for 2nd read MR Spine (Exam End: 01/04/2023 12:29 AM) Impression 1. Septic right L4-5 facet joint, with associated epidural phlegmon and abscess that contributes to severe canal stenosis at L4-5. 2. No evidence of discitis/osteomyelitis. 3. Paraspinous inflammatory changes without abscess. Thank you for letting us participate in the care of this patient. If you are a health care provider and have any questions regarding this report, please contact the number below. For patients who have questions please contact the health reproductive healthcare assistant that requested your imaging first. Lumbar Spine wwo Contrast (Exam End: 01/04/2023 7:46 PM) Impression Findings suggestive of right L4-5 septic joint. Interval expansion of large dorsal epidural abscess from L3 to L5 produces severe thecal sac narrowing and compression of cauda equina nerve roots. Thank you for letting us participate in the care of this patient. If you are a health care provider and have any questions regarding this report, please contact the number below. For patients who have questions please contact the health reproductive healthcare assistant that requested your imaging first. Knee 1-2 Views Right (Generic) (Exam End: 01/05/2023 1:26 PM) Impression Moderate right knee osteoarthropathy without acute abnormality. Thank you for letting us participate in the care of this patient. If you are a health care provider and have any questions regarding this report, please contact the number below. For patients who have questions please contact the health reproductive healthcare assistant that requested your imaging first. Inpatient Medications: Scheduled acetaminophen 975 mg Oral Q6H GUANACO shift total and Settings verification Intravenous 2 Times Daily - Shift Total lidocaine 3 patch Transdermal Q24H tiZANidine 4 mg Oral Q6H gabapentin 300 mg Oral TID methadone 40 mg Oral 2 times per day vancomycin 1.75 g Intravenous Q8H sodium chloride 0.9 % (flush) 5 mL Intravenous BID enoxaparin 40 mg Subcutaneous Nightly sodium chloride 0.9 % (flush) 5 mL Intravenous BID nicotine 1 patch Transdermal Daily And Patch Verification 1 patch Transdermal BID Continuous infusions: ketamine 0.3 mg/kg/hr (01/07/23 4523) PRN: hydrOXYzine, ibuprofen, HYDROmorphone OR HYDROmorphone OR HYDROmorphone, traZODone, sodium chloride 0.9 % (flush), lidocaine, sodium chloride 0.9 % (flush), lidocaine Assessment: Mesfin Lackey is a 32 y.o. female with hx of IVDU transferring from [facility] with L3-S1 epidural abscess. Interval history Patient complaining of severe back pain and APS continue following. IR neuro contacted and they hadplan for aspiration today, however they decided against as they feel this might not be the most beneficial route of tx for the patient. Continue working with neurosurgery, ID and APS. Daily blood cultures, last positive was 01/04, awaiting 01/05 positive. 01/06 and 01/07 cultures NGTD. PICC line was never cleared by ID and unfortunately she has positive Blood cultures and she gets daily BC and needs to be negative for 3 consecutive days before placing PICC so if they come back positive tomorrow PICC will have to come out as she has bacteremia. Plan: #L4-S1 Discitis w/Epidural abscess #MRSA Bacteremia # Back pain, acute # Concern for Septic RIGHT knee - Found on MRI to have evidence of L4-S1 discitis/osteomyelitis associated with epidural abscess. - Neurosurgery consult: No need for surgical intervention at this time as she does not have neuro deficits. - Neuro IR consult for questions about possible drainage.--> small collection near the right L4-5 facet joint that we might be able to aspirate on 01/07 - 01/04 MRI L spine Confirmed discitis/osteomyelitis with epidural abscess - 01/07 IR neuro feels risks outweigh the benefits. Decided against aspiration and feel conservativemanagement is the best management for the time being. - ID consulted, appreciate their recommendations -DC Rocephin, continue Vancomycin -TTE without vegetation - Daily cultures till clearance for at least 48hrs: Last growth was on 01/04 - 01/05 - 01/07 Bcx --> NGTD - Pain control: sliding scale dilaudid IV -X-rays of knee ordered -Ortho consulted, appreciate their assistance- no effusion or enough fluid from aspiration to culture - consulted APS: 1) liberalize opioid PO sliding scale- done 01/06 2) Start Ketamine infusion for acute pain crisis. Please check QOD LFT's while on ketamine 3) Given neurological process and baseline Gabapentin use, will order Gabapentin. We can start at 300 TID (although she looks like she was on 600 TID). Started 01/06 4) Continue split dose of Methadone and confirm actual dose with clinic on Saturday, 01/07 5) Schedule Tizanidine ordered 01/06 6) Lidocaine patches x 3 (goal to generate blood level for the anti-inflammatory effects- thus the location is not important-started 01/06 7) After 48 hours of Ketoralac, please convert to PO ibuprofen- done 01/06 # Hypokalemia - 01/07 K+ levels came back at 3.0 - Replete levels prn - Daily BMPs #OUD - Hx of IVDU last used on 01/02 - Start 60mg BID - Per patient, she takes 200mg qd (in addition to fentanyl usage) -Please call PRABHJOT daily to until dosage can be confirmed ([phone]) - Consider BIT consult IV access/ MIVF PIV Tubes/ Drains DVT prophylaxis Lovenox PT/OT/MANAGER RESEARCH AND DEVELOPMENT Wound care Anticipated Disposition TBD Team Pager (MD Coverage 07/01): [phone] Family Update 01/07 PCP Tiffany oHuser MD Diet regular IGGY Cedillo 01/07/2023 * Sites, Blanco Gurrola MD - 01/07/2023 8:11 AM EDT Patient Name: Mesfin Lackey Patient Age: 32 y.o. Birthdate: 1990 Admit date: 01/03/2023 Attending Physician: Eyal Robbins MD Acute Pain Medicine Progress Note Patient struggled yesterday with pain and fluctuated between being comfortable/sleeping to on-going10/10. This morning the patient was resting comfortably and was quite sedated. She did awaken and was alert and oriented x 3. She says her pain is definitely improved on the ketamine infusion. She nancy sandy identifies pain as deep ache in her lumbar region with radicular symptoms to right hip and knee. Exam: Patient appears to be in no acute distress She is moving both extremities. She can plantar flex andextend feet. She can weakly straight leg raise bilaterally. Current Analgesic Medication: Gabapentin 300 mg PO TID Hydromorphone Sliding Scale SC 0.4-0.8 q 3 hours Methadone 40 mg PO BID Tizanidine 4 mg PO TID Acetaminophen 975 mg PO QID Ketoralac 15 mg IV q 4 hours Lidocaine patches x 3 Assessment: Acute nociceptive and neuropathic pain due to epidural infection/abscess complicated by chronic back pain, OUD not in remission, chronic high dose opioid use, opioid tolerance, and likely opioid induced hyperalgesia. Plan: 1) Continue Ketamine, I put infusion back to 0.3 mg/kg/hour due to sedation 2) Hospital medicine service changed hydromorphone to SC yesterday. PO would be simpler and with very similar pharmacokinetic pattern at (4-8 mg sliding scale). We typically only recommend SC when GItract not an option. 3) According to [employer] her gabapentin dose is 600 mg TID which would be ideal given the neuropathic nature of her injury. However, her current sedation level is concerning and I would probably hold off on escalating until the opioids can be weaned a bit 4) Continue split dose of Methadone and regardless of the outside clinic dose, it makes sense not to escalate at this point due to sedation. 5) Continue scheduled lidocaine patches, tizanidine, NSAID's, and acetaminophen 6) Addiction medicine consult 7) Continuous pulse oximetry 8) Await results of antibiotic therapy and possible Blanco Gurrola. MD Kike [id number] * Rowena Lechuga MD - 01/07/2023 7:43 AM EDT ORTHOPAEDIC SURGERY INPATIENT PROGRESS NOTE Patient Name: Mesfin Lackey Age: 32 y.o. Surgery/Issue: c/f R knee septic arthritis Attending: Dr. Callaway SUBJECTIVE / INTERVAL HISTORY: Pain well-controlled this AM- resting comfortably Denies chills, SOB, N/V. AFVSS WBC 7.7 (6.5) Blood cx 01/04 w MRSA Blood cx 01/05 NGTD FOCUSED REVIEW OF SYSTEMS: as above. Active Hospital Problems Diagnosis Epidural abscess Resolved Hospital Problems No resolved problems to display. Active Non-Hospital Problems Diagnosis CIS - Entered not Verified CIS - Cervicalgia 723.1 CIS - Lumbar Spine Pain 724.2 MEDICATIONS: acetaminophen (Tylenol) tablet 975 mg hydrOXYzine (Atarax) tablet 25 mg ketamine (Ketalar) (10 mg/mL) in sodium chloride 0.9% 100 mL infusion AND ketamine shift total and Settings verification lidocaine (Lidoderm) 5% patch 3 patch tiZANidine (Zanaflex) tablet 4 mg gabapentin (Neurontin) capsule 300 mg ibuprofen (Advil) tablet 600 mg HYDROmorphone (Dilaudid) (0.5 mg/0.5 mL) injection syringe 0.4 mg OR HYDROmorphone (Dilaudid) (1 mg/mL) injection syringe 0.6 mg OR HYDROmorphone (Dilaudid) (1 mg/mL) injection syringe 0.8 mg traZODone (Desyrel) tablet 50 mg methadone (Dolophine) tablet 40 mg vancomycin (Vancocin) 1.75 gram in sodium chloride 0.9% 500 mL infusion sodium chloride 0.9 % (flush) (BD PosiFlush Normal Saline 0.9) flush 5 mL sodium chloride 0.9 % (flush) (BD PosiFlush Normal Saline 0.9) flush 5-20 mL lidocaine (Xylocaine) 1% (10 mg/mL) injection 3 mg enoxaparin (Lovenox) (40 mg/0.4 mL) subcutaneous injection 40 mg sodium chloride 0.9 % (flush) (BD PosiFlush Normal Saline 0.9) flush 5 mL sodium chloride 0.9 % (flush) (BD PosiFlush Normal Saline 0.9) flush 5-20 mL lidocaine (Xylocaine) 1% (10 mg/mL) injection 3 mg nicotine (Nicoderm CQ) 14 mg/24 hr patch 14 mg AND nicotine (Nicoderm CQ) 14 mg/24 hr patch Patch Verification ketamine 0.3 mg/kg/hr (01/07/23 7373) OBJECTIVE: Temp: [36.7 ??C (98.1 ??F)-37.6 ??C (99.7 ??F)] Heart Rate: [82-102] Resp: [15-18] BP: (138-173)/(82-107) Intake/Output Summary (Last 24 hours) at 01/07/2023 0826 Last data filed at 01/07/2023 0347 Gross per 24 hour Intake 630 ml Output 1950 ml Net -1320 ml BMI: Weight: (!) 142.3 kg (313 lb 11.4 oz) (01/04/23 0021) BMI (Calculated): 45.01 BMI Classification: Morbid Obesity Body mass index is 45.01 kg/m??. PE: General: awake/alert, responds to questions CV: RRR assessed peripherally Resp: Breathing comfortably on RA RLE: No TTP R hip this AM- no erythema, swelling, skin changes- tolerates log roll without pain R knee without TTP, no erythema, skin changes. Mild swelling remains. Tolerates short arc ROM, PROM. Sensory intact to light touch in lat fem cut/fem/sural/saph/SP/DP/T distributions Motor intact to FHL/EHL/TA w some weakness/hesitancy to plantarflexion iso back pain Brisk capillary refill distally, foot warm/well-perfused Lab Results Component Value Date NA 142 01/07/2023 K 3.0 (CRIT) 01/07/2023 CL 108 (H) 01/07/2023 CO2 24 01/07/2023 BUN 9 01/07/2023 CREATININE 0.65 (L) 01/07/2023 GLUCOSE 158 01/07/2023 CALCIUM 8.3 (L) 01/07/2023 Lab Results Component Value Date WBC 7.7 01/07/2023 HGB 10.1 (L) 01/07/2023 HCT 31.6 (L) 01/07/2023 MCV 85.2 01/07/2023 PLATELET 153 01/07/2023 Lab Results Component Value Date INR 1.4 01/04/2023 IMAGING: XR R Knee 01/05/23: No osseous abnormality, no effusion. ASSESSMENT / PLAN: Mesfin Lackey is a 32 y.o. female w MRSA bacteremia, oste/discitis and L3-S1 epidural abscess on vanc. Pain well-controlled this morning. Tolerates passive ROM R hip and knee without problem, low clinical suspicion for septic arthritis at this time. The orthopaedics team will sign off at this time- please re-engage with any questions, concerns, or concerning changes in herpresentation or exam. [id number]. - Activity: WBAT RLE - Antibiotics: Vancomycin - DVT px: per primary Rowena Lechuga MD 01/07/2023 No future appointments. * Blanco Siddiqi RN - 01/06/2023 6:35 PM EDT OUTCOME EVALUATION NOTE: OUTCOME SUMMARY: Pt A&OX4. Hypertensive sbp 173 max w/ 10/10 pain, otherwise VSS on RA. Pt c/o 8-1010 pain, minimally controlled w/ Ketamine gtt, subcu prn Dilaudid, tylenol, lido, ice, and Advil. Pt tolerated a regular diet. Pt denied nausea. OUPA via bedside commode. BS normoactive x4. No flatus or bms this shift. Pt c/o R foot numbness, otherwise neuro checks unremarkable. PLAN MOVING FORWARD: Pain control Ketamine gtt Npo @ 0005 for OR Encourage oob INDIVIDUALIZED FALL PREVENTION INTERVENTIONS: High Fall Risk Patient-specific fall risk factors per assessment: [current deficits]: 2 or more active diagnoses, recent surgery, has an actively infusing IV line, uses an ambulatory aid, has generalized weakness (or impairment), tubes/drains, , pain, opioids for pain, is taking anti-histamines. Assistance [level of assistance required for transfers and ambulation]: 1XA w/ FWW Supervision [direct monitoring required during toileting and ADLs]: Hands on Surveillance [continuous indirect monitoring]:Hourly rounding, observation by staff, NKE at bedside. Assistive device, bed/chair alarm, family at bedside, commode at bedside, environmental modifications (reduce clutter, lighting adjusted for safety, IV tubing and cords are free from the floor), nonskid shoes/slippers when out of bed, sitter at bedside, bed in low position, upper position siderails raised x2 (x3), wheels locked, call light in reach, ID bands on, yellow falls ID band on Patient-specific fall prevention interventions for sensory deficits provided, if applicable: [X] N/A CPG GOAL OUTCOME EVALUATION: * Abigail Hernandez, SALES STORE CHECKER - 01/06/2023 12:52 PM EDT Hospital Medicine Daily Progress Note Admit Date: 01/03/2023 Hospital Day 3 days Active Hospital Problems Diagnosis Epidural abscess Resolved Hospital Problems No resolved problems to display. 24 Hour Events: - Ortho consulted 01/05, no effusion noted in knee, not enough fluid to culture - severe pain overnight, consulted APS this morning 01/06 as addition of tizanidine, transition to oral hydromorphone with increased dosing ineffective to manage pain. - will be NPO at [facility] for planned IR aspiration on 01/07 - continue daily blood cultures, last positive was 01/04, awaiting 01/05 results ROS: back and hip pain No anorexia No cough, shortness of breath No chest pain, palpitation No abdominal pain, N/V No hematuria, dysuria No constipation or diarrhea No rashes or skin changes No sore throat, nasal congestion Admits to significant back pain Physical Exam Vitals Range last 24 hrs Temperature Temp: [36.7 ??C (98.1 ??F)-37.6 ??C (99.7 ??F)] Heart Rate Heart Rate: [82-102] Blood Pressure BP: (129-173)/(82-101) Respiratory Rate Resp: [16-22] SpO2 SpO2: [90 %-97 %] Intake/Output Summary (Last 24 hours) at 01/06/2023 1252 Last data filed at 01/06/2023 0800 Gross per 24 hour Intake 1360 ml Output -- Net 1360 ml Patient Vitals for the past 168 hrs: Weight 01/04/23 0021 (!) 142.3 kg (313 lb 11.4 oz) 01/03/23 2159 127 kg (280 lb) BMI: Weight: (!) 142.3 kg (313 lb 11.4 oz) (01/04/23 0021) BMI (Calculated): 45.01 BMI Classification: Morbid Obesity Estimated Creatinine Clearance: 185.8 mL/min (A) (based on SCr of 0.66 mg/dL (L)). General: Appears in mild distress due to pain. Lying in bed on back. HEENT: Normocephalic, atraumatic, symmetric. Sclera anicteric. Cardiovascular: Regular rhythm. No murmurs, rubs, gallops. Respiratory: Lungs clear to auscultation. No wheeze, rhonchi, rales. Abdominal: No lesions observed on abdomen. Normal bowel sounds. No tenderness to palpation. No hepatosplenomegaly or other masses detected. Lower Extremities: No pedal edema. MSK: 5+ muscle strength in bilateral biceps, triceps, fish inspector strength, knee extensors, knee flexors. Lumbar spinal and PSM tenderness reproduced. RIGHT knee edematous, no significant erythema noted. Neuro: CN III-XII intact. Sensation to touch is normal in bilateral upper and lower extremities. Cerebellar function intact as demonstrated by [id number] test. Studies reviewed in eDH. Remarkable for the following: LABS: Recent Labs 01/06/23 0648 01/05/2351601/03/233 WBC 6.5 6.6 10.1* HGB 10.4* 11.5* 12.1 HCT 32.7* 35.2* 37.0 PLATELET 115* 110* 152 Recent Labs 01/06/23 0648 01/05/23 0517 01/04/23 0056 NA 138 136 137 K 3.6 3.4* 3.5 CL 105 104 105 CO2 22 21* 20* BUN 16 15 12 CREATININE 0.66* 0.67* 0.67* Recent Labs 01/03/23 2313 AST 8 ALT 11 ALKPHOS 59 BILITOT 0.3 Recent Labs 01/06/23 0648 01/05/23 0517 01/04/23 0056 CALCIUM 8.3* 8.3* 8.5 PHOS 3.5 2.7 -- Recent Labs 01/04/23 0056 PT 15.7* INR 1.4 No results for input(s): CK, TROPONINT in the last 168 hours. FSBG Trend No results for input(s): POCGLU in the last 72 hours. MICRO: No results for input(s): URINECULTURE in the last 720 hours. No results for input(s): GRAMSTAIN, BFCX, LOWERRESPCX, TISSUECX in the last 720 hours. Recent Labs 01/03/23 2313 01/04/23 1400 01/04/23 1450 BLOODCX Staphylococcus aureus, MRSA isolated Susceptibilities previously reported * Staphylococcus aureus, MRSA detected by PCR Isolate saved. If future testing is required, contact the Microbiology Environmental Emergencies Assistant. * No growth at 1 day.* Staphylococcus aureus, MRSA isolated Susceptibilities previously reported * ECG: No results for input(s): DIAGLINE, QTCCALC in the last 720 hours. VASCULAR: No results for input(s): VBTEXTRPT in the last 720 hours. IMAGING: Results for orders placed or performed during the hospital encounter of 01/03/23 XR Chest One View (Exam End: 01/03/2023 10:27 PM) Impression Low lung volumes, otherwise, no acute cardiopulmonary process. Thank you for letting us participate in the care of this patient. If you are a health care provider and have any questions regarding this report, please contact the number below. For patients who have questions please contact the health reproductive healthcare assistant that requested your imaging first. Request for 2nd read MR Spine (Exam End: 01/04/2023 12:29 AM) Impression 1. Septic right L4-5 facet joint, with associated epidural phlegmon and abscess that contributes to severe canal stenosis at L4-5. 2. No evidence of discitis/osteomyelitis. 3. Paraspinous inflammatory changes without abscess. Thank you for letting us participate in the care of this patient. If you are a health care provider and have any questions regarding this report, please contact the number below. For patients who have questions please contact the health reproductive healthcare assistant that requested your imaging first. Lumbar Spine wwo Contrast (Exam End: 01/04/2023 7:46 PM) Impression Findings suggestive of right L4-5 septic joint. Interval expansion of large dorsal epidural abscess from L3 to L5 produces severe thecal sac narrowing and compression of cauda equina nerve roots. Thank you for letting us participate in the care of this patient. If you are a health care provider and have any questions regarding this report, please contact the number below. For patients who have questions please contact the health reproductive healthcare assistant that requested your imaging first. Knee 1-2 Views Right (Generic) (Exam End: 01/05/2023 1:26 PM) Impression Moderate right knee osteoarthropathy without acute abnormality. Thank you for letting us participate in the care of this patient. If you are a health care provider and have any questions regarding this report, please contact the number below. For patients who have questions please contact the health reproductive healthcare assistant that requested your imaging first. Inpatient Medications: Scheduled acetaminophen 975 mg Oral Q6H GUANACO shift total and Settings verification Intravenous 2 Times Daily - Shift Total lidocaine 3 patch Transdermal Q24H tiZANidine 4 mg Oral Q6H gabapentin 300 mg Oral TID methadone 40 mg Oral 2 times per day vancomycin 1.75 g Intravenous Q8H sodium chloride 0.9 % (flush) 5 mL Intravenous BID enoxaparin 40 mg Subcutaneous Nightly sodium chloride 0.9 % (flush) 5 mL Intravenous BID nicotine 1 patch Transdermal Daily And Patch Verification 1 patch Transdermal BID Continuous infusions: ketamine 0.3 mg/kg/hr (01/06/23 1141) PRN: hydrOXYzine, HYDROmorphone OR HYDROmorphone OR HYDROmorphone, ketorolac, sodium chloride 0.9 % (flush), lidocaine, sodium chloride 0.9 % (flush), lidocaine Assessment: Mesfin Lackey is a 32 y.o. female with hx of IVDU transferring from [facility] with L3-S1 epidural abscess. Interval history Planned for IR aspiration on Saturday, 01/07- will be NPO at [place]. Unfortunately, the patient is in immense pain and we were unable to verify her Methadone dosing due to the clinic being closed on a Saturday. Per patient, she takes 200mg qd (in addition to the fentanyl usage). Given her pain crisis, AcutePain Service was consulted and she was initiated on a ketamine drip, gabapentin and lidocaine patches were started and tizanidine was scheduled. Toradol transitioned to PO ibuprofen per APS. Please see note from Dr. Simeon Sites dated 01/06 for further. Plan: #L4-S1 Discitis w/Epidural abscess #MRSA Bacteremia # Back pain, acute # Concern for Septic RIGHT knee - Found on MRI to have evidence of L4-S1 discitis/osteomyelitis associated with epidural abscess. - Neurosurgery consult: No need for surgical intervention at this time as she does not have neuro deficits. - Neuro IR consult for questions about possible drainage.--> small collection near the right L4-5 facet joint that we might be able to aspirate on 01/07 - 01/04 MRI L spine Confirmed discitis/osteomyelitis with epidural abscess - ID consulted, appreciate their recommendations -DC Rocephin, continue Vancomycin -TTE without vegetation - Daily cultures till clearance for at least 48hrs - Pain control: sliding scale dilaudid IV -X-rays of knee ordered -Ortho consulted, appreciate their assistance- no effusion or enough fluid from aspiration to culture - consulted APS on 01/06, recs below: 1) liberalize opioid PO sliding scale- done 01/06 2) Start Ketamine infusion for acute pain crisis. Please check QOD LFT's while on ketamine- orderedto start 01/07 3) Given neurological process and baseline Gabapentin use, will order Gabapentin. We can start at 300 TID (although she looks like she was on 600 TID). Started 01/06 4) Continue split dose of Methadone and confirm actual dose with clinic on Saturday, 01/07 5) Schedule Tizanidine ordered 01/06 6) Lidocaine patches x 3 (goal to generate blood level for the anti-inflammatory effects- t hus thelocation is not important-started 01/06 7) After 48 hours of Ketoralac, please convert to PO ibuprofen- done 01/06 #OUD - Hx of IVDU last used on 01/02 - Start 60mg BID - Per patient, she takes 200mg qd (in addition to fentanyl usage) -Please call PRABHJOT daily to until dosage can be confirmed ([phone]) - Consider BIT consult IV access/ MIVF PIV Tubes/ Drains DVT prophylaxis Lovenox PT/OT/MANAGER RESEARCH AND DEVELOPMENT Wound care Anticipated Disposition TBD Team Pager (MD Coverage 07/01): [phone] Family Update 01/04 PCP Tiffany Houser MD Diet regular Abigail Hernandez APRN 01/06/2023 * Harley Hernandez MD - 01/06/2023 8:00 AM EDT NEUROSURGERY PROGRESS NOTE ID: Mesfin Lackey is a 32 y.o. female not on APAC with a PMHx significant for IVDU on methadone presenting in transfer from outside hospital for acute onset low back and RLE pain found on MRI tohave evidence of L4-S1 discitis/osteomyelitis associated with epidural abscess. HD# 3 POD # INTERVAL HX/ROS: No acute events Neuro stable C/o significant pain MEDICATIONS: Scheduled Meds: acetaminophen 975 mg Oral Q6H GUANACO shift total and Settings verification Intravenous 2 Times Daily - Shift Total lidocaine 3 patch Transdermal Q24H tiZANidine 4 mg Oral Q6H gabapentin 300 mg Oral TID methadone 40 mg Oral 2 times per day vancomycin 1.75 g Intravenous Q8H sodium chloride 0.9 % (flush) 5 mL Intravenous BID enoxaparin 40 mg Subcutaneous Nightly sodium chloride 0.9 % (flush) 5 mL Intravenous BID nicotine 1 patch Transdermal Daily And Patch Verification 1 patch Transdermal BID Continuous Infusions: ketamine (Ketalar) (10 mg/mL) in sodium chloride 0.9% 100 mL infusion 0.3 mg/kg/hr (Adjusted) Intravenous Continuous ### PRN Meds: hydrOXYzine, HYDROmorphone OR HYDROmorphone OR HYDROmorphone, ketorolac, sodium chloride 0.9 % (flush), lidocaine, sodium chloride 0.9 % (flush), lidocaine EXAM: Vitals: Temp: [36.7 ??C (98.1 ??F)-37.6 ??C (99.7 ??F)] Heart Rate: [82-87] Resp: [18-22] BP: (129-173)/(84-103) SpO2: [90 %-97 %] Heart Rate from SpO2: [59 bpm-91 bpm] BMI: Weight: (!) 142.3 kg (313 lb 11.4 oz) (01/04/23 0021) BMI (Calculated): 45.01 BMI Classification: Morbid Obesity I/O: I/O last 3 completed shifts: In: 0 [P.O.:1310; I.V.:500] Out: - GEN:NAD NEURO:AA No meningismus PERRL. EOMI. No facial asymmetry Tongue midline MOTOR: RUE:5/5 LUE:5/5 RLE: 5/5 LLE: 5/ LT sensation intact x 4 LABS: Recent Labs 01/06/23 0648 01/05/23 0517 01/03/23 2313 WBC 6.5 6.6 10.1* HGB 10.4* 11.5* 12.1 PLATELET 115* 110* 152 Recent Labs 01/06/23 0648 01/05/23 0517 01/04/23 0056 NA 138 136 137 K 3.6 3.4* 3.5 CL 105 104 105 CO2 22 21* 20* BUN 16 15 12 CREATININE 0.66* 0.67* 0.67* Recent Labs 01/04/23 0056 PT 15.7* INR 1.4 IMAGING: MRI lumbar spine wwo: R L4-5 septic facet joint with enhancement extending into the adjacent posterior paravertebral musculature discogenic edema and enhancement at L4-5 and L5-S1. No endplate marrow edema or enhancement.Diffuse circumferential epidural abscess from L3-S1, thickest at L4-5 level contributing to severe canal stenosis with crowding of the cauda equina. Lumbar vertebral body heights are maintained. No cord compression. No abnormal cord signal. Conus terminates at L1 Assessment: Mesfin Lackey is a 32 y.o. female not on APAC with a PMHx significant for IVDU on methadone presenting in transfer from outside hospital for acute onset low back and RLE pain found on MRI to have evidence of L4-S1 discitis/osteomyelitis associated with epidural abscess. Plan: - Q4HNC - Pain control - Imaging: Complete - DVT ppx: SCDs, OK for SQH from NSGY standpoint - Current Diet: Regular diet NPO diet (Give Meds) -Further care per hospital medicine PLEASE PAGE [phone] WITH QUESTIONS Active Hospital Problems Diagnosis Epidural abscess Resolved Hospital Problems No resolved problems to display. Active Non-Hospital Problems Diagnosis CIS - Entered not Verified CIS - Cervicalgia 723.1 CIS - Lumbar Spine Pain 724.2 Harley Hernandez MD 01/06/2023 * Rowena Lechuga MD - 01/06/2023 7:35 AM EDT ORTHOPAEDIC SURGERY INPATIENT PROGRESS NOTE Patient Name: Mesfin Lackey Age: 32 y.o. Surgery/Issue: c/f R knee septic arthritis Attending: Dr. Callaway SUBJECTIVE / INTERVAL HISTORY: Still in severe pain largely complaining of the back- severe pain even at rest. Has trouble tolerating physical exam Otherwise no acute events overnight Denies chills, SOB, N/V. WBC 6.5 (6.6) Hepatitis, HIV panel performed negative Blood cx 01/05 w MRSA FOCUSED REVIEW OF SYSTEMS: as above. Active Hospital Problems Diagnosis Epidural abscess Resolved Hospital Problems No resolved problems to display. Active Non-Hospital Problems Diagnosis CIS - Entered not Verified CIS - Cervicalgia 723.1 CIS - Lumbar Spine Pain 724.2 MEDICATIONS: acetaminophen (Tylenol) tablet 975 mg HYDROmorphone (Dilaudid) tablet 2 mg OR HYDROmorphone (Dilaudid) tablet 4 mg OR HYDROmorphone (Dilaudid) tablet 6 mg tiZANidine (Zanaflex) tablet 4 mg hydrOXYzine (Atarax) tablet 25 mg methadone (Dolophine) tablet 40 mg vancomycin (Vancocin) 1.75 gram in sodium chloride 0.9% 500 mL infusion ketorolac (Toradol) (30 mg/mL) injection 15 mg sodium chloride 0.9 % (flush) (BD PosiFlush Normal Saline 0.9) flush 5 mL sodium chloride 0.9 % (flush) (BD PosiFlush Normal Saline 0.9) flush 5-20 mL lidocaine (Xylocaine) 1% (10 mg/mL) injection 3 mg enoxaparin (Lovenox) (40 mg/0.4 mL) subcutaneous injection 40 mg sodium chloride 0.9 % (flush) (BD PosiFlush Normal Saline 0.9) flush 5 mL sodium chloride 0.9 % (flush) (BD PosiFlush Normal Saline 0.9) flush 5-20 mL lidocaine (Xylocaine) 1% (10 mg/mL) injection 3 mg nicotine (Nicoderm CQ) 14 mg/24 hr patch 14 mg AND nicotine (Nicoderm CQ) 14 mg/24 hr patch Patch Verification OBJECTIVE: Temp: [36.8 ??C (98.2 ??F)-37.6 ??C (99.7 ??F)] Heart Rate: [82-87] Resp: [20-22] BP: (129-140)/(84-103) Intake/Output Summary (Last 24 hours) at 01/06/2023 0817 Last data filed at 01/06/2023 0400 Gross per 24 hour Intake 1330 ml Output -- Net 1330 ml BMI: Weight: (!) 142.3 kg (313 lb 11.4 oz) (01/04/23 0021) BMI (Calculated): 45.01 BMI Classification: Morbid Obesity Body mass index is 45.01 kg/m??. PE: General: awake/alert, responds to questions CV: RRR assessed peripherally Resp: Breathing comfortably on RA RLE: Exam complicated by back pain- initiating movements trigger pain in back. Mild TTP R hip but no erythema, swelling, skin changes- tolerates log roll without pain R knee without erythema, skin changes. Mild swelling. Tolerates short arc ROM, PROM. Sensory intact to light touch in lat fem cut/fem/sural/saph/SP/DP/T distributions Motor intact to FHL/EHL/TA w some weakness/hesitancy to plantarflexion iso pain Brisk capillary refill distally, foot warm/well-perfused Lab Results Component Value Date NA 138 01/06/2023 K 3.6 01/06/2023 CL 105 01/06/2023 CO2 22 01/06/2023 BUN 16 01/06/2023 CREATININE 0.66 (L) 01/06/2023 GLUCOSE 89 01/06/2023 CALCIUM 8.3 (L) 01/06/2023 Lab Results Component Value Date WBC 6.5 01/06/2023 HGB 10.4 (L) 01/06/2023 HCT 32.7 (L) 01/06/2023 MCV 87.0 01/06/2023 PLATELET 115 (L) 01/06/2023 Lab Results Component Value Date INR 1.4 01/04/2023 IMAGING: XR R Knee 01/05/23: No osseous abnormality, no effusion. ASSESSMENT / PLAN: Mesfin Lackey is a 32 y.o. female w MRSA bacteremia, oste/discitis and L3-S1 epidural abscess on vanc. Back pain constant and appears to be driving pain in RLE. Continues to tolerate PROM R knee, though severe back pain complicates evaluation. No effusion- aspiration w insufficient fluid for cx. Due to her risk factors for developing septic joints and her inconsistent exam in setting of back pain, will continue to monitor. Please reach out with acute worsening or additional concerns in the interim. - Activity: WBAT RLE - Antibiotics: Vancomycin - DVT px: per primary Rowena Lechuga MD 01/06/2023 No future appointments. * Jenn Villafana RN - 01/06/2023 1:42 AM EDT OUTCOME EVALUATION NOTE: OUTCOME SUMMARY: Report received from [facility] RN Leonie. Pt arrived to unit around 0045. Pt oriented to room, use of calllight, and fall prevention precautions. Pt is A/Ox4, VSS on RA. Pt arrived in 10/10 pain. Only PRN available was tylenol. Tylenol given and paged regarding pain control. IV dilaudid was d/c, PO dilaudid ordered, tizanidine and atarax added. All medications given as able but pt continued to endorse 10/10 pain. Pt restless and calling out in pain. Offered heat, ice, and repositioning with no effect. PRN toradol given around 0200 and pt was able to sleep for a bit. Lowest pt rated her pain was 9/10. NPO diet maintained for possible procedure in the morning. Call light within reach, safety maintained. Patient Vitals for the past 8 hrs: BP Temp Temp src Pulse Resp SpO2 01/05/23 2337 133/84 37.6 ??C (99.7 ??F) Oral 87 20 97 % 01/05/231940 129/89 37.3 ??C (99.2 ??F) Axillary 82 22 90 % PLAN MOVING FORWARD: Pain control Mobilize IR Saturday Security check visitors D/c planning INDIVIDUALIZED FALL PREVENTION: Patient is currently a HIGH risk to Fall. Patient educated on bed/chair alarm, demonstrates proper use of call amin and verbalizes understanding of fall preventions implemented. Patient-specific fall risk factors per assessment: [current deficits]: Pain, Medications, Hospital Environment, Decreased lighting, fatigue, recent procedure. Assistance [level of assistance required for transfers and ambulation]: x1 assist Supervision [direct monitoring required during toileting and ADLs]: Hands on assistance with ADL's Surveillance [continuous indirect monitoring]: Quinton Gleasonful Rounding, Bedside Report Patient-specific fall prevention interventions for sensory deficits provided, if applicable: [X] N/A CPG GOAL OUTCOME EVALUATION: * Leonie Porter RN - 01/06/2023 12:43 AM EDT Patient medicated for pain as needed. Jose arm PIV intact and patent. VSS. Patient transferred to room 205 in 2W after report was given to the receiving nurse. * Bo Alaniz PA - 01/05/2023 12:09 PM EDT Hospital Medicine Daily Progress Note Admit Date: 01/03/2023 Hospital Day 2 days Active Hospital Problems Diagnosis Epidural abscess Resolved Hospital Problems No resolved problems to display. 24 Hour Events: - Unable to get ahold of Methadone clinic. Due to immense pain, will start ~ 1/2 patients reported dosing of 120mg total daily (per patient, she receives 200mg qd). - POSSIBLE IR procedure on Saturday (01/07). -MRSA positive on blood cultures x 2 sets now. - New RIGHT knee pain, started last night. Ortho consulted. ROS: back and hip pain No anorexia No cough, shortness of breath No chest pain, palpitation No abdominal pain, N/V No hematuria, dysuria No constipation or diarrhea No rashes or skin changes No sore throat, nasal congestion Admits to significant back pain Physical Exam Vitals Range last 24 hrs Temperature Temp: [37.2 ??C (99 ??F)-37.7 ??C (99.9 ??F)] Heart Rate Heart Rate: -- Blood Pressure BP: (129-156)/(88-107) Respiratory Rate Resp: [18-22] SpO2 SpO2: [93 %-98 %] Intake/Output Summary (Last 24 hours) at 01/05/2023 1209 Last data filed at 01/05/2023 0800 Gross per 24 hour Intake 1200 ml Output 600 ml Net 600 ml Patient Vitals for the past 168 hrs: Weight 01/04/23 0021 (!) 142.3 kg (313 lb 11.4 oz) 01/03/23 2159 127 kg (280 lb) BMI: Weight: (!) 142.3 kg (313 lb 11.4 oz) (01/04/23 0021) BMI (Calculated): 45.01 BMI Classification: Morbid Obesity Estimated Creatinine Clearance: 183 mL/min (A) (based on SCr of 0.67 mg/dL (L)). General: Appears in mild distress due to pain. Lying in bed on back. HEENT: Normocephalic, atraumatic, symmetric. Sclera anicteric. Cardiovascular: Regular rhythm. No murmurs, rubs, gallops. Respiratory: Lungs clear to auscultation. No wheeze, rhonchi, rales. Abdominal: No lesions observed on abdomen. Normal bowel sounds. No tenderness to palpation. No hepatosplenomegaly or other masses detected. Lower Extremities: No pedal edema. MSK: 5+ muscle strength in bilateral biceps, triceps, fish inspector strength, knee extensors, knee flexors. Lumbar spinal and PSM tenderness reproduced. RIGHT knee edematous, no significant erythema noted. Neuro: CN III-XII intact. Sensation to touch is normal in bilateral upper and lower extremities. Cerebellar function intact as demonstrated by [id number] test. Studies reviewed in eDH. Remarkable for the following: LABS: Recent Labs 01/05/23 0517 01/03/23 2313 WBC 6.6 10.1* HGB 11.5* 12.1 HCT 35.2* 37.0 PLATELET 110* 152 Recent Labs 01/05/23 0517 01/04/236 01/03/232312 NA 136 137 139 K 3.4* 3.5 3.7 CL 104 105 104 CO2 * 20* 23 BUN 15 12 12 CREATININE 0.67* 0.67* 0.77 Recent Labs 01/03/232312 AST 8 ALT 11 ALKPHOS 59 BILITOT 0.3 Recent Labs 01/05/23 0517 01/04/236 01/03/232312 CALCIUM 8.3* 8.5 8.6 PHOS 2.7 -- -- Recent Labs 01/04/2355 PT 15.7* INR 1.4 No results for input(s): CK, TROPONINT in the last 168 hours. FSBG Trend No results for input(s): POCGLU in the last 72 hours. MICRO: No results for input(s): URINECULTURE in the last 720 hours. No results for input(s): GRAMSTAIN, BFCX, LOWERRESPCX, TISSUECX in the last 720 hours. Recent Labs 01/03/232312 BLOODCX Staphylococcus aureus, MRSA isolated Susceptibility testing in progress * Staphylococcus aureus, MRSA detected by PCR* ECG: No results for input(s): DIAGLINE, QTCCALC in the last 720 hours. VASCULAR: No results for input(s): VBTEXTRPT in the last 720 hours. IMAGING: Results for orders placed or performed during the hospital encounter of 01/03/23 XR Chest One View (Exam End: 01/03/2023 10:27 PM) Impression Low lung volumes, otherwise, no acute cardiopulmonary process. Thank you for letting us participate in the care of this patient. If you are a health care provider and have any questions regarding this report, please contact the number below. For patients who have questions please contact the health reproductive healthcare assistant that requested your imaging first. Request for 2nd read MR Spine (Exam End: 01/04/2023 12:29 AM) Impression 1. Septic right L4-5 facet joint, with associated epidural phlegmon and abscess that contributes to severe canal stenosis at L4-5. 2. No evidence of discitis/osteomyelitis. 3. Paraspinous inflammatory changes without abscess. Thank you for letting us participate in the care of this patient. If you are a health care provider and have any questions regarding this report, please contact the number below. For patients who have questions please contact the health reproductive healthcare assistant that requested your imaging first. Lumbar Spine wwo Contrast (Exam End: 01/04/2023 7:46 PM) Impression Findings suggestive of right L4-5 septic joint. Interval expansion of large dorsal epidural abscess from L3 to L5 produces severe thecal sac narrowing and compression of cauda equina nerve roots. Thank you for letting us participate in the care of this patient. If you are a health care provider and have any questions regarding this report, please contact the number below. For patients who have questions please contact the health reproductive healthcare assistant that requested your imaging first. Inpatient Medications: Scheduled methadone 60 mg Oral 2 times per day cefTRIAXone 2 g Intravenous Q12H vancomycin 1.5 g Intravenous Q8H sodium chloride 0.9 % (flush) 5 mL Intravenous BID enoxaparin 40 mg Subcutaneous Nightly sodium chloride 0.9 % (flush) 5 mL Intravenous BID nicotine 1 patch Transdermal Daily And Patch Verification 1 patch Transdermal BID Continuous infusions: PRN: ketorolac, acetaminophen, sodium chloride 0.9 % (flush), lidocaine, sodium chloride 0.9 % (flush), lidocaine, HYDROmorphone OR HYDROmorphone OR HYDROmorphone Assessment and plan: Mesfin Lackey is a 32 y.o. female with hx of IVDU transferring from [facility] with L3-S1 epidural abscess. Interval history Planned for IR aspiration on Saturday. Unfortunately, the patient is in immense pain and I am unable to verify her Methadone dosing. Per patient, she takes 200mg qd (in addition to the fentanyl usage).Will give her one-time dose of Methadone today (lower than reported) and increase short acting painmeds as able. Due to the multiple sets of blood cultures positive with MRSA, I touched back with neurosurgery to confirm that surgical intervention is not necessary, especially in the setting of new RIGHT knee pain concerning a septic joint. Orthopaedics also consulted. #L4-S1 Discitis w/Epidural abscess #MRSA Bacteremia # Back pain, acute # Concern for Septic RIGHT knee - Found on MRI to have evidence of L4-S1 discitis/osteomyelitis associated with epidural abscess. - Neurosurgery consult: No need for surgical intervention at this time as she does not have neuro deficits. - Neuro IR consult for questions about possible drainage.--> small collection near the right L4-5 facet joint that we might be able to aspirate on 01/07 - 01/04 MRI L spine Confirmed discitis/osteomyelitis with epidural abscess - ID consulted, appreciate their recommendations -DC Rocephin, continue Vancomycin -TTE without vegetation - Daily cultures till clearance for at least 48hrs - Pain control: sliding scale dilaudid IV -X-rays of knee ordered -Ortho consulted, appreciate their assistance. #OUD - Hx of IVDU last used on 01/02 - Start 60mg BID - Per patient, she takes 200mg qd (in addition to fentanyl usage) -Please call PRABHJOT daily to until dosage can be confirmed ([phone]) - Consider BIT consult IV access/ MIVF PIV Tubes/ Drains DVT prophylaxis Lovenox PT/OT/[employer] Wound care Anticipated Disposition TBD Team Pager ( Coverage 07/01): [phone] Family Update 01/04 PCP Tiffany Houser MD Diet regular IGGY Jefferson 01/05/2023 * Harley Hernandez MD - 01/05/2023 11:38 AM EDT NEUROSURGERY PROGRESS NOTE ID: Mesfin Lackey is a 32 y.o. female not on APAC with a PMHx significant for IVDU on methadone presenting in transfer from outside hospital for acute onset low back and RLE pain found on MRI tohave evidence of L4-S1 discitis/osteomyelitis associated with epidural abscess. HD# 2 POD # INTERVAL HX/ROS: No acute events Neuro stable C/o significant pain MEDICATIONS: Scheduled Meds: cefTRIAXone 2 g Intravenous Q12H vancomycin 1.5 g Intravenous Q8H sodium chloride 0.9 % (flush) 5 mL Intravenous BID enoxaparin 40 mg Subcutaneous Nightly sodium chloride 0.9 % (flush) 5 mL Intravenous BID nicotine 1 patch Transdermal Daily And Patch Verification 1 patch Transdermal BID Continuous Infusions: PRN Meds: ketorolac, acetaminophen, sodium chloride 0.9 % (flush), lidocaine, sodium chloride 0.9 %(flush), lidocaine, HYDROmorphone OR HYDROmorphone OR HYDROmorphone EXAM: Vitals: Temp: [36.3 ??C (97.3 ??F)-37.7 ??C (99.9 ??F)] Heart Rate: -- Resp: [18-22] BP: (129-156)/(76-107) SpO2: [93 %-98 %] Heart Rate from SpO2: [70 bpm-88 bpm] BMI: Weight: (!) 142.3 kg (313 lb 11.4 oz) (01/04/23 0021) BMI (Calculated): 45.01 BMI Classification: Morbid Obesity I/O: I/O last 3 completed shifts: In: 840 [P.O.:840] Out: 900 [Urine:900] GEN:NAD NEURO:Drowsy, sedated No meningismus PERRL. EOMI. No facial asymmetry Tongue midline MOTOR: RUE:5/5 LUE:5/5 RLE: 5/5 LLE: 5/5 LT sensation intact x 4 LABS: Recent Labs 01/05/23 0517 01/03/23 2313 WBC 6.6 10.1* HGB 11.5* 12.1 PLATELET 110* 152 Recent Labs 01/05/23 0517 01/04/23 0056 01/03/23 2313 NA 136 137 139 K 3.4* 3.5 3.7 CL 104 105 104 CO2 21* 20* 23 BUN 15 12 12 CREATININE 0.67* 0.67* 0.77 Recent Labs 01/04/23 005 PT 15.7* INR 1.4 IMAGING: MRI lumbar spine wwo: R L4-5 septic facet joint with enhancement extending into the adjacent posterior paravertebral musculature discogenic edema and enhancement at L4-5 and L5-S1. No endplate marrow edema or enhancement.Diffuse circumferential epidural abscess from L3-S1, thickest at L4-5 level contributing to severe canal stenosis with crowding of the cauda equina. Lumbar vertebral body heights are maintained. No cord compression. No abnormal cord signal. Conus terminates at L1 Assessment: Mesfin Lackey is a 32 y.o. female not on APAC with a PMHx significant for IVDU on methadone presenting in transfer from outside hospital for acute onset low back and RLE pain found on MRI to have evidence of L4-S1 discitis/osteomyelitis associated with epidural abscess. Plan: - Q4HNC - Pain control - Imaging: Complete - DVT ppx: SCDs, Hold anticoagulation/antiplatelet - Current Diet: Regular diet -Further care per hospital medicine PLEASE PAGE [phone] WITH QUESTIONS Active Hospital Problems Diagnosis Epidural abscess Resolved Hospital Problems No resolved problems to display. Active Non-Hospital Problems Diagnosis CIS - Entered not Verified CIS - Cervicalgia 723.1 CIS - Lumbar Spine Pain 724.2 Harley Hernandez MD 01/05/2023 * Brittany Mccracken MD - 01/05/2023 9:57 AM EDT Infectious Disease Service - Follow-Up Note Active ID Issue(s): - Sustained MRSA bacteremia - Large dorsal L3-L5 epidural abscess resulting in thecal sac compression - R L4-L5 septic facet arthritis - R knee pain with concern for septic arthritis Interval Updates: Repeat MRI L-spine was performed last night, showing interval expansion of large dorsal epidural abscess from L3 to L5, producing severe thecal sac narrowing and compression of cauda equina nerve roots. Seen again by neurosurgery this AM, who have continued to opt to defer surgery. Blood Cxs from 01/03 and 01/04 have revealed growth of MRSA. Subjective: Complaining of ongoing severe lower back pain, as well as new R sided knee pain that started yesterday. Antimicrobials: Vancomycin (01/04-) Ceftriaxone (01/04-) Medications: ketorolac (Toradol) (30 mg/mL) injection 15 mg acetaminophen (Tylenol) tablet 650 mg cefTRIAXone (Rocephin) 2 g vial attach to sodium chloride 0.9% 50 mL Mini-Bag Plus vancomycin (Vancocin) 1.5 gram in sodium chloride 0.9% 500 mL infusion sodium chloride 0.9 % (flush) (BD PosiFlush Normal Saline 0.9) flush 5 mL sodium chloride 0.9 % (flush) (BD PosiFlush Normal Saline 0.9) flush 5-20 mL lidocaine (Xylocaine) 1% (10 mg/mL) injection 3 mg enoxaparin (Lovenox) (40 mg/0.4 mL) subcutaneous injection 40 mg sodium chloride 0.9 % (flush) (BD PosiFlush Normal Saline 0.9) flush 5 mL sodium chloride 0.9 % (flush) (BD PosiFlush Normal Saline 0.9) flush 5-20 mL lidocaine (Xylocaine) 1% (10 mg/mL) injection 3 mg HYDROmorphone (Dilaudid) (0.5 mg/0.5 mL) injection syringe 0.2 mg OR HYDROmorphone (Dilaudid) (0.5 mg/0.5 mL) injection syringe 0.4 mg OR HYDROmorphone (Dilaudid) (1 mg/mL) injection syringe 0.6 mg nicotine (Nicoderm CQ) 14 mg/24 hr patch 14 mg AND nicotine (Nicoderm CQ) 14 mg/24 hr patch Patch Verification Vitals: Last value Range last 24 hrs Temperature Temp: 37.4 ??C (99.3 ??F) Temp: [36.3 ??C (97.3 ??F)-37.7 ??C (99.9 ??F)] Heart Rate Heart Rate: 86 Heart Rate: -- Blood Pressure BP: 134/88 BP: (129-156)/(76-107) Respiratory Rate Resp: 22 Resp: [18-22] SpO2 SpO2: 96 % SpO2: [93 %-98 %] Physical Exam: General: In some distress, lying in bed, crying due to significant pain HEENT: No scleral icterus, moist mucous membranes, no oropharyngeal lesions Neck: Supple, trachea midline Pulmonary: Clear to auscultation listening anteriorly, no wheezes or crackles CV: Regular rate and rhythm, no murmurs Abdomen: Soft, non-distended, non-tender to palpation in all quadrants Extremities: No peripheral edema. R knee somewhat swollen compared to L knee, with significant tenderness on passive and active ROM. Skin: No rashes or lesions noted on visible skin Neuro: Alert and oriented, no focal deficits, moving all extremities spontaneously Laboratory: Recent Labs 01/05/23 0517 01/03/233 WBC 6.6 10.1* HGB 11.5* 12.1 HCT 35.2* 37.0 PLATELET 110* 152 Recent Labs 01/05/23 0517 01/04/23 0056 01/03/233 NA 136 137 139 K 3.4* 3.5 3.7 CL 104 105 104 CO2 21* 20* 23 BUN 15 12 12 CREATININE 0.67* 0.67* 0.77 Recent Labs 01/03/233 AST 8 ALT 11 ALKPHOS 59 BILITOT 0.3 Microbiology: 01/05 BCx x2 - NGTD 01/04 BCx x2 - GPCs in clusters in 1/4 vials 01/03 BCx x2 - MRSA in 2/4 vials Radiology/Studies/Procedures: MRI of L-spine w/ & w/o IV contrast (01/04/2023) Findings suggestive of right L4-5 septic joint. Interval expansion of large dorsal epidural abscessfrom L3 to L5 produces severe thecal sac narrowing and compression of cauda equina nerve roots. TTE (01/04/2023) Left ventricle is of normal size. Wall thickness is normal. Left ventricular systolic function is normal. The left ventricular ejection fraction is 69% by Shell's biplane. There are no segmental wall motion abnormalities. The right ventricle is of normal size. Right ventricular systolic function is normal. MRI of L-spine w/ & w/o IV contrast ([facility], 01/03/2023) 1. Septic right L4-5 facet joint, with associated epidural phlegmon and abscess that contributes tosevere canal stenosis at L4-5. 2. No evidence of discitis/osteomyelitis. 3. Paraspinous inflammatory changes without abscess. Impression: Mesfin Lackey is a 32 y.o. 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 She remains persistently bacteremic despite what should be appropriate antibiotic therapy, and I worry that we may not be able to clear her bacteremiawithout washing out this epidural abscess. I would continue to engage neurosurgery on this matter. Additionally, patient is now complaining of new onset severe R knee pain, and in the setting of ongoing MRSA bacteremia, I think it would be important to rule out a new metastatic focus of septic arthritis in this joint. Recommendations: - Continue IV vancomycin (w/ AUC goal = 400-600), with pharmacy support with dosing and intensive therapeutic monitoring - Of note, if having challenges achieving adequate levels on current dose of this drug, we may needto consider adjusting therapy to IV daptomycin - Stop IV ceftriaxone - Please obtain daily surveillance blood Cxs for now - Please do not place PICC until blood Cxs have been clear for at least 72 hours - Strongly feel that evacuation of expanding dorsal lumbar epidural abscess would be important in facilitating source control and clearance of bacteremia, and appreciate continued neurosurgical engagement on this matter - Please consult orthopedic surgery given concern for R knee septic arthritis - Please screen for viral infections transmitted by IVDU by checking hep B sAg / sAb / core Ab, hepC Ab, and HIV screen Monitor for toxicity of IV vancomycin by checking at least twice weekly CBC w/ diff, CMP. I spent a total of 50 minutes on the [id number] encounter, chart review, documentation, and coordination of care. X The Infectious Disease consult service will continue to follow the patient. Do not hesitate to page ID Red team with any further questions or concerns. ID will sign off. Please contact us if further consultation required. Brittany Mccracken MD Staff Physician in Infectious Diseases * Antoine Ferreira PA - 01/04/2023 12:21 PM EDT Hospital Medicine Daily Progress Note Admit Date: 01/03/2023 Hospital Day 1 day Active Hospital Problems Diagnosis Epidural abscess Resolved Hospital Problems No resolved problems to display. 24 Hour Events: - Patient complaints of significant lower back and hip pain. Dilaudid provides intermittent relief. - Per neurosurgery, abx and consult ID. Avoid OR as possible. No need for I&D for now. Leave upto ID team. - Diet advanced to regular. - No acute events overnight ROS: back and hip pain No anorexia No cough, shortness of breath No chest pain, palpitation No abdominal pain, N/V No hematuria, dysuria No constipation or diarrhea No rashes or skin changes No sore throat, nasal congestion Physical Exam Vitals Range last 24 hrs Temperature Temp: [36.3 ??C (97.3 ??F)-37.3 ??C (99.2 ??F)] Heart Rate Heart Rate: [73-88] Blood Pressure BP: (126-153)/(76-93) Respiratory Rate Resp: [11-24] SpO2 SpO2: [89 %-99 %] Intake/Output Summary (Last 24 hours) at 01/04/2023 1221 Last data filed at 01/04/2023 0800 Gross per 24 hour Intake 0 ml Output 300 ml Net -300 ml Patient Vitals for the past 168 hrs: Weight 01/04/23 0021 (!) 142.3 kg (313 lb 11.4 oz) 01/03/23 2159 127 kg (280 lb) BMI: Weight: (!) 142.3 kg (313 lb 11.4 oz) (01/04/23 0021) BMI (Calculated): 45.01 BMI Classification: Morbid Obesity Estimated Creatinine Clearance: 183 mL/min (A) (based on SCr of 0.67 mg/dL (L)). General: Appears in mild distress due to pain. Lying in bed onto her R side. HEENT: Normocephalic, atraumatic, symmetric. Sclera anicteric. Cardiovascular: Regular rhythm. No murmurs, rubs, gallops. Respiratory: Lungs clear to auscultation. No wheeze, rhonchi, rales. Abdominal: No lesions observed on abdomen. Normal bowel sounds. No tenderness to palpation. No hepatosplenomegaly or other masses detected. Lower Extremities: No pedal edema. MSK: 5+ muscle strength in bilateral biceps, triceps, fish inspector strength, knee extensors, knee flexors. Neuro: CN III-XII intact. Sensation to touch is normal in bilateral upper and lower extremities. Cerebellar function intact as demonstrated by [id number] test. Studies reviewed in eDH. Remarkable for the following: LABS: Recent Labs 01/03/232312 WBC 10.1* HGB 12.1 HCT 37.0 PLATELET 152 Recent Labs 01/04/236 01/03/232312 NA 137 139 K 3.5 3.7 CL 105 104 CO2 23 BUN 12 12 CREATININE 0.67* 0.77 Recent Labs 01/03/232312 AST 8 ALT 11 ALKPHOS 59 BILITOT 0.3 Recent Labs 01/04/236 01/03/232312 CALCIUM 8.5 8.6 Recent Labs 01/04/2355 PT 15.7* INR 1.4 No results for input(s): CK, TROPONINT in the last 168 hours. FSBG Trend No results for input(s): POCGLU in the last 72 hours. MICRO: No results for input(s): URINECULTURE in the last 720 hours. No results for input(s): GRAMSTAIN, BFCX, LOWERRESPCX, TISSUECX in the last 720 hours. No results for input(s): BLOODCX in the last 720 hours. ECG: No results for input(s): DIAGLINE, QTCCALC in the last 720 hours. VASCULAR: No results for input(s): VBTEXTRPT in the last 720 hours. IMAGING: Results for orders placed or performed during the hospital encounter of 01/03/23 XR Chest One View (Exam End: 01/03/2023 10:27 PM) Impression Low lung volumes, otherwise, no acute cardiopulmonary process. Thank you for letting us participate in the care of this patient. If you are a health care provider and have any questions regarding this report, please contact the number below. For patients who have questions please contact the health reproductive healthcare assistant that requested your imaging first. Request for 2nd read MR Spine (Exam End: 01/04/2023 12:29 AM) Impression 1. Septic right L4-5 facet joint, with associated epidural phlegmon and abscess that contributes to severe canal stenosis at L4-5. 2. No evidence of discitis/osteomyelitis. 3. Paraspinous inflammatory changes without abscess. Thank you for letting us participate in the care of this patient. If you are a health care provider and have any questions regarding this report, please contact the number below. For patients who have questions please contact the health reproductive healthcare assistant that requested your imaging first. Inpatient Medications: Scheduled cefTRIAXone 2 g Intravenous Q12H vancomycin 1.5 g Intravenous Q8H sodium chloride 0.9 % (flush) 5 mL Intravenous BID sodium chloride 0.9 % (flush) 5 mL Intravenous BID nicotine 1 patch Transdermal Daily And Patch Verification 1 patch Transdermal BID Continuous infusions: PRN: ketorolac, acetaminophen, sodium chloride 0.9 % (flush), lidocaine, sodium chloride 0.9 % (flush), lidocaine, HYDROmorphone OR HYDROmorphone OR HYDROmorphone Assessment and plan: Mesfin Lackey is a 32 y.o. female with hx of IVDU transferring from [facility] with L3-S1 epidural abscess. Interval history She was evaluated by ID on 01/04 and recommended continue broad spectrum abx therapy. Neurosurgery team does not believe she can benefit from surgery at this time. Patient has been mostly controlled with IV dilaudid. Diet has been advanced to regular. #L3-S1 Epidural abscess # Back pain, acute # Bacteremia - Found on MRI to have evidence of L4-S1 discitis/osteomyelitis associated with epidural abscess. - Neurosurgery consult: No need for surgical intervention at this time. Do not feel I&D is appropriate at this time. Should be tx with abx for now. - Neuro IR consult for questions about possible drainage.--> small collection near the right L4-5 facet joint that we might be able to aspirate on 01/07 - 01/04 MRI L spine with and without contrast ordered - MRI from OSH: evidence of L4-S1 discitis/osteomyelitis associated with epidural abscess. - ID consult: - S/p vanc and CTX in [facility]. She will need at least 6 weeks of antibiotics. - continue with vanc and CTX. 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 female not on APAC with a PMHx significant for IVDU on methadone presenting in transfer from outside hospital for acute onset low back and RLE pain found on MRI tohave evidence of L4-S1 discitis/osteomyelitis associated with epidural abscess. HD# 1 POD # INTERVAL HX/ROS: No acute events Neuro stable MEDICATIONS: Scheduled Meds: cefTRIAXone 2 g Intravenous Q12H vancomycin 1.5 g Intravenous Q8H sodium chloride 0.9 % (flush) 5 mL Intravenous BID sodium chloride 0.9 % (flush) 5 mL Intravenous BID nicotine 1 patch Transdermal Daily And Patch Verification 1 patch Transdermal BID Continuous Infusions: PRN Meds: ketorolac, acetaminophen, sodium chloride 0.9 % (flush), lidocaine, sodium chloride 0.9 %(flush), lidocaine, HYDROmorphone OR HYDROmorphone OR HYDROmorphone EXAM: Vitals: Temp: [37 ??C (98.6 ??F)-37.3 ??C (99.2 ??F)] Heart Rate: [73-88] Resp: [11-24] BP: (126-153)/(81-93) SpO2: [89 %-99 %] Heart Rate from SpO2: [74 bpm-89 bpm] BMI: Weight: (!) 142.3 kg (313 lb 11.4 oz) (01/04/23 0021) BMI (Calculated): 45.01 BMI Classification: Morbid Obesity I/O: I/O last 3 completed shifts: In: 0 Out: 300 [Urine:300] GEN:NAD NEURO:AA+Ox3 No meningismus PERRL. EOMI. No facial asymmetry Tongue midline MOTOR: RUE:5/5 LUE:5/5 RLE: 5/5 LLE: 5/5 No pronator drift LT sensation intact x 4 LABS: Recent Labs 01/03/23 2313 WBC 10.1* HGB 12.1 PLATELET 152 Recent Labs 01/04/23 0056 01/03/23 2313 NA 137 139 K 3.5 3.7 CL 105 104 CO2 BUN 12 12 CREATININE 0.67* 0.77 Recent Labs 01/04/2355 PT 15.7* INR 1.4 IMAGING: MRI lumbar spine wwo: R L4-5 septic facet joint with enhancement extending into the adjacent posterior paravertebral musculature discogenic edema and enhancement at L4-5 and L5-S1. No endplate marrow edema or enhancement.Diffuse circumferential epidural abscess from L3-S1, thickest at L4-5 level contributing to severe canal stenosis with crowding of the cauda equina. Lumbar vertebral body heights are maintained. No cord compression. No abnormal cord signal. Conus terminates at L1 Assessment: Mesfin Lackey is a 32 y.o. female not on APAC with a PMHx significant for IVDU on methadone presenting in transfer from outside hospital for acute onset low back and RLE pain found on MRI to have evidence of L4-S1 discitis/osteomyelitis associated with epidural abscess. Plan: - Q4HNC - Pain control - Imaging: Complete - DVT ppx: SCDs, Hold anticoagulation/antiplatelet - Current Diet: NPO diet (Give Meds) -Further care per hospital medicine PLEASE PAGE [phone] WITH QUESTIONS Active Hospital Problems Diagnosis Epidural abscess Resolved Hospital Problems No resolved problems to display. Active Non-Hospital Problems Diagnosis CIS - Entered not Verified CIS - Cervicalgia 723.1 CIS - Lumbar Spine Pain 724.2 Harley Hernandez MD 01/04/2023 documented in this encounter H&P Notes * Nolan Ardon MD - 01/03/2023 10:39 PM EDT Hospital Medicine Admission H&P Patient Name: MESFIN LACKEY Date of : 1990 Age: 32 y.o. Hospital Admit Date: 01/03/2023 Inpatient Attending: Fab Cross MD PCP: Tiffany Houser MD Presenting Diagnosis/Chief Complaint: History of Present Illness: Mesfin Lackey is a 32 y.o. female with hx of IVDU transferring from [facility] with L3-S1 epidural abscess. She reports acute onset lower back pain starting yesterday. Initially presented to [facility] where MRI showed L3-S1 and she was transferred here for neurosurgical evaluation. Denies fevers, chills, lower extremity weakness, numbness. Currently reporting 10/10 low back pain. Review of Systems: Per HPI Past Medical History: No past medical history on file. Patient Active Problem List Diagnosis Code CIS - Cervicalgia 723.1 CIS - Entered not Verified CIS - Lumbar Spine Pain 724.2 Epidural abscess G06.2 Past Surgical History: No past surgical history on file. Social History: Social History Socioeconomic History Marital status: Single Spouse name: Not on file Number of children: Not on file Years of education: Not on file Highest education level: Not on file Occupational History Not on file Tobacco Use Smoking status: Not on file Smokeless tobacco: Not on file Substance and Sexual Activity Alcohol use: Not on file Drug use: Not on file Sexual activity: Not on file Other Topics Concern Not on file Social History Narrative Not on file Social Determinants of Health Financial Resource Strain: Not on file Food Insecurity: Not on file Transportation Needs: Not on file Physical Activity: Not on file Housing Stability: Not on file Family History: No family history on file. Allergies: No Known Allergies Medications: (Not in a hospital admission) PHYSICAL EXAM: Last value Range last 24 hrs Temperature Temp: 37.2 ??C (98.9 ??F) Temp: [37.2 ??C (98.9 ??F)] Heart Rate Heart Rate: 84 Heart Rate: [73-88] Blood Pressure BP: 138/86 BP: (137-153)/(81-92) Respiratory Rate Resp: 16 Resp: [16-24] SpO2 SpO2: 98 % SpO2: [93 %-98 %] No intake/output data recorded. General: Appears in mild distress due to pain HEENT: Normocephalic, atraumatic, symmetric. Sclera anicteric. Cardiovascular: Regular rhythm. No murmurs, rubs, gallops. Respiratory: Lungs clear to auscultation. No wheeze, rhonchi, rales. Abdominal: No lesions observed on abdomen. Normal bowel sounds. No tenderness to palpation. No hepatosplenomegaly or other masses detected. Lower Extremities: No pedal edema. MSK: 5+ muscle strength in bilateral biceps, triceps, fish inspector strength, knee extensors, knee flexors. Neuro: CN III-XII intact. Sensation to touch is normal in bilateral upper and lower extremities. Cerebellar function intact as demonstrated by [id number] test. LABS: Recent Labs 01/03/23 2313 WBC 10.1* HGB 12.1 HCT 37.0 PLATELET 152 No results for input(s): NA, K, CL, CO2, BUN, CREATININE in the last 168 hours. No results for input(s): CALCIUM, MAGNESIUM, PHOS in the last 168 hours. No results for input(s): PT, PTT, FIBRINOGEN, DDIMER in the last 168 hours. Invalid input(s): THROMBIN TIME No results for input(s): INR in the last 168 hours. No results for input(s): AST, ALT, ALKPHOS, BILITOT, BILIDIR in the last 168 hours. No results for input(s): CK, TROPONINT in the last 168 hours. No results for input(s): LDH, URICACID in the last 168 hours. No results for input(s): TSH in the last 7068 hours. No results for input(s): HA1C in the last 7068 hours. Microbiology: Microbiology Results (Last 30 days) No results found for the last 720 hours. Imaging/Diagnostics: Results for orders placed or performed during the hospital encounter of 01/03/23 XR Chest One View (Exam End: 01/03/2023 10:27 PM) Impression Low lung volumes, otherwise, no acute cardiopulmonary process. Thank you for letting us participate in the care of this patient. If you are a health care provider and have any questions regarding this report, please contact the number below. For patients who have questions please contact the health reproductive healthcare assistant that requested your imaging first. SSMENT and PLAN: Mesfin Lackey is a 32 y.o. female with hx of IVDU transferring from [facility] with L3-S1 epidural abscess. #L3-S1 Epidural abscess #Pain - Neurosurgery consult - IR consult for drainage - MRI from OSH - S/p vanc and CTX in [facility], hold further abx for now - Bcx pending - Abscess fluid cultures - Consider ID consult when culture data available - sliding scale dilaudid IV #OUD - Verify methadone dose in AM - Consider BIT consult #Housekeeping: - DVT PPx: lovenox - GI PPx: n/a - Diet: NPO for possible surgery - Level of care: med surg - Vitals: q4 Discussed Advanced Directives and Code Status. The patient wishes to be full code. Nolan Ardon MD [facility] Internal Medicine PGY-2 Pager # Associated attestation - Fab Cross MD - 01/04/2023 5:16 AM EDT Attending Attestation and Certification Please see Nolan Ardon MD's note for details of the patient history of presentation and data. I have discussed, reviewed and agree with the documented History, Physical findings, Assessment and Plan of care. I have examined the patient myself and personally reviewed all studies. In addition, I certify thatI am a [facility] credentialed attending provider with admitting privileges and that the patient meets or has met medical necessity to require an inpatient IPI level of care meeting a minimum of two midnights or is on the CMS inpatient only procedure list (status C) due to: uncontrolled pain requiring titration of medications to achieve optimal effect and to minimize immediate or severe side effects 32yo female w/ a hx of IVDU presenting in transfer from [facility] w/ L3-S1 epidural abscess noted on outside imaging. S/p Vancomycin and CTX at OSH, continuing this regimen here while we await culture data. Per NSGY no indication for urgent surgery but pt will be kept NPO for now. Pain control with sliding scale Dilaudid, may have to increase due to pt opioid tolerance with ongoing IVDU. Will need to confirm Methadone dosing at her clinic in the AM so she is able to continue to receive this inpatient. DVT ppx held per NSGY request. documented in this encounter Procedure Notes * Soledda Cosby RN - 01/16/2023 3:05 PM EDTAssociated Order(s): VAS PICC REWIRE PICC/Midline Insertion Procedure Note Indications: Anti-infective This insertion was not to replace a malfunctioning catheter. This insertion was not due to a suspected line-associated infection. Location of Procedure: X-Ray Room 11 Risks and Benefits: The risks and benefits of this procedure were reviewed and informed consent was obtained obtained. Time Out: Prior to the start of the procedure, the patient's identity, intended procedure, site/side, correctpatient positioning and presence of the site reji was confirmed as applicable. The medical history and chart were reviewed to rule out potential contraindications to the planned procedure. Hand Hygiene: The product sales engineer did perform hand hygiene prior to line insertion. Catheter type: PICC Lot number: [id number] Procedure Technique: Skin was prepped with chlorhexidine. Skin preparation agent was completely dry at the time of first skin puncture. The following barrier precaution methods were used:large sterile drape, maske/eye shield, large sterile gown, sterile gloves, and cap. 1 ml of 1% Lidocaine was used for skin wheal. Ultrasound was not used for guidance. Radiographic contrast agent was not injected for vein identification. Procedure Details: Order received for catheter placement. A 4 Fr. single lumen Bard Power catheter was placed into theright basilic vein over a 0.018 inch guidewire using modified seldinger technique and fluoroscopy. Arm circumference was 44 cm at 2 cm above the insertion site. Final catheter length (with trimming): 50 cm Internal: 50 cm External: 0 cm Tip in SVC per Isabel. The line was not placed over a guidewire. Post Procedure: Diagnosis: Epidural Abscess Blood return noted on aspiration of line after placement confirmed. 5 mls of normal saline infused free flowing to gravity via PICC after insertion. Sterile dressing applied: CHG Impregnated Tegaderm. Findings: The patient did tolerate the procedure well. No Complications. Procedure Comments: Rewire double lumen picc to single lumen picc for discharge SOLEDAD COSBY RN 01/16/2023 * Dat Alvarado RN - 01/07/2023 11:09 AM EDTAssociated Order(s): PLACE PICC LINE: CONTACT VASCULAR ACCESS PICC/Midline Insertion Procedure Note Indications: Access This insertion was not to replace a malfunctioning catheter. This insertion was not due to a suspected line-associated infection. Location of Procedure: X-Ray Room 11 Risks and Benefits: The risks and benefits of this procedure were reviewed and informed consent was obtained obtained. Time Out: Prior to the start of the procedure, the patient's identity, intended procedure, site/side, correctpatient positioning and presence of the site reji was confirmed as applicable. The medical history and chart were reviewed to rule out potential contraindications to the planned procedure. Hand Hygiene: The product sales engineer did perform hand hygiene prior to line insertion. Catheter type: PICC Lot number: [id number] Procedure Technique: Skin was prepped with chlorhexidine. Skin preparation agent was completely dry at the time of first skin puncture. The following barrier precaution methods were used:large sterile drape, maske/eye shield, large sterile gown, sterile gloves, and cap. 3 ml of 1% Lidocaine was used for skin wheal. Ultrasound was used for guidance. Radiographic contrast agent was not injected for vein identification. Procedure Details: Order received for catheter placement. A 5 Fr. double lumen Bard Power catheter was placed into theright basilic vein over a 0.018 inch guidewire using modified seldinger technique and fluoroscopy. Arm circumference was 46 cm at 2 cm above the insertion site. Final catheter length (with trimming): 51 cm Internal: 50 cm External: 1 cm Tip in SVC per Mejia. The line was not placed over a guidewire. Post Procedure: Diagnosis: epidural abscess Blood return noted on aspiration of line after placement confirmed. 5 mls of normal saline infused free flowing to gravity via PICC after insertion. Sterile dressing applied: CHG Impregnated Tegaderm. Findings: The patient did tolerate the procedure well. Complication Details: 2 failed attempts for left side PICC prior to successful right sided placement Procedure Comments: 2 failed attempts to obtain left brachial PICC. Successful picc placement in right basilic Dat F Jenny, RN 01/07/2023 documented in this encounter ED Notes * Giovanna Tierney RN - 01/04/2023 12:09 AM EDT Report given to Sherly. * Giovanna Tierney RN - 01/03/2023 11:42 PM EDT Pt is alert and oriented x4, she reports this pain started yesterday 01/02 in her lower back. Pt presented to the ER after she had taken 1600mg of ibuprofen in one sitting and her pain did not improve. Pt transferred to this hospital from [facility] this evening. At [facility] CT revealed L4-L5 septic facet joint, L4-L5 L5-S1 discitis, epidural abscesses from L4-S1 with stenosis, received Vancomycin, blood cultures were drawn. Pt denies any numbness or tingling in her extremities, full sensation intact. BS are present, abdomen is soft and no tender, last BM was on 01/01. She denies any difficulties voiding. * Giovanna Tierney RN - 01/03/2023 11:09 PM EDT Pt reports recreational IV Fentanyl use, last Fentanyl use the day before yesterday. Pt reports she is on Methadone at this time. * Amadou aGo MD - 01/03/2023 10:06 PM EDT ED ATTENDING ATTESTATION The patient was seen in conjunction with Dr. Souza, the resident physician. I have independently performed the zapata portions of the history and physical exam. I have reviewed all diagnostic studies personally including labs, imaging studies and EKGs. I have discussed the details of the case with theresident and agree with the assessment and plan as described in the resident note above unless noted in my separate note. ED Course as of 01/10/23 0751 Apoorva Jan 03, [id number] Transfer from outside hospital with epidural abscess seen on imaging. Epidural abscess from L3-S1. Patient given ceftriaxone and vancomycin. Patient also treated with fentanyl for pain control. 2224 I have discussed the treatment and management of this patient with the following healthcare providers: NSG -recommend no acute surgical intervention, recommend hospital medicine admission for medical management of osteo/epidural abscess with no focal neurodeficits. MDM: Admit to for epidural abscess w/o neuro deficits per NSG recommendations. NSG consulted and willclosely follow as inpatient. ED Resident Note HPI: Mesfin Lackey is a 32 y.o. female who presents to the Emergency Department with back pain for 2 days. Patient was in her normal state of health until yesterday morning when she began experiencing back pain. The pain progressed until last night when it was unbearable. She presented to an outside hospital where she was found to have an epidural abscess L3-S1. She reports pain in her back but no fever, night sweats, chills, shortness of breath, headache, numbness or tingling, abdominal pain, bowel or bladder incontinence. She has a history of IVDU, last used yesterday. Reports using fentanyl, no other reported meds or substances. ROS as per HPI Vitals: ED Triage Vitals [01/03/23 2159] BP: 137/81 Heart Rate: 80 Resp: 20 Temp: 37.2 ??C (98.9 ??F) Temp src: Oral SpO2: 95 % O2 Device: O2 Flow Rate (L/min): n/a Physical Exam Constitutional: General: She is not in acute distress. Appearance: She is not ill-appearing, toxic-appearing or diaphoretic. Comments: Patient is in significant pain, however is not in acute distress HENT: Head: Normocephalic and atraumatic. Right Ear: External ear normal. Left Ear: External ear normal. Nose: Nose normal. No congestion. Mouth/Throat: Comments: With poor dentition Eyes: Extraocular Movements: Extraocular movements intact. Cardiovascular: Rate and Rhythm: Normal rate and regular rhythm. Pulses: Normal pulses. Heart sounds: Normal heart sounds. Pulmonary: Effort: Pulmonary effort is normal. Breath sounds: Rhonchi (Inspiratory and expiratory rhonchi.) present. Abdominal: Palpations: Abdomen is soft. Tenderness: There is no abdominal tenderness. Musculoskeletal: Cervical back: No rigidity. Comments: With TTP over lumbar and Sacral spine, and right hip. Skin: General: Skin is warm and dry. Neurological: General: No focal deficit present. Mental Status: She is alert. Sensory: No sensory deficit. Motor: No weakness. Psychiatric: Mood and Affect: Mood normal. ED Course: I have reviewed labs and imaging, images and available reports, and they are significant for: No orders to display Procedures Assessment and Plan: 32 y.o. female with hx IVDU presents from outside hospital for evaluation of epidural abscess L3-S1. Patient is neurologically intact with no sign of meningitis or encephalitis. Hemodynamically stable, afebrile. Dispo pending NSGY recommendations. NSG recommending no acute surgical interventions. Plan for admission to for medical management with NSG following. The visit findings, diagnosis, and care plan were discussed with the patient. Amadou Gao MD 01/10/23 0752 * Mikaela Leo MD - 01/03/2023 6:09 PM EDT 32-year-old woman coming from [facility] with an epidural abscess. She has a history of active IVDU and presented with low back pain. She had imaging that showed an epidural abscess from L3-S1. She is hemodynamically stable and neurologically intact. She was given antibiotics and also given multiple doses of fentanyl and then her methadone. She is coming to the ED for evaluation by neurosurgery. Mikaela Leo MD 01/03/23 1810 documented in this encounter Miscellaneous Notes * Care Management Discharge - Anuja Hughes RN - 01/17/2023 10:59 AM EDT CARE MANAGEMENT FINAL DISCHARGE NOTE Chart reviewed, care reviewed with primary team and at interdisciplinary rounds. Patient is medically ready and anticipated to discharge home with 01/17/23. Patient will discharge with a PICC in place for home IV ABX. [facility] has declined to accept patient into their service. Per [facility] Unfortunately after review and discussion with the PCP office we do not feel comfortable accepting this referral. Biggest contributing factor is recent documentedIV drug use. CM has expressed concern regarding discharge home with PICC d/t recent IVDU prior to admit and returning home with who is currently using. Medical team is aware of CM's concerns and that patient will discharge home with no [facility] support. [facility] has been consulted by ID. [facility] is aware of this plan. The Medical team has cleared patient for discharge. Mesfin has been provided education regarding importance of adhering to proper usage and administration of ONLY IV ABX into PICC. Mesfin verbalized understanding of this. Patient states that she is comfortable administering prescribed IV ABX. Mesfin has been set up by medical team for weekly labs and PICC dressing changes at [facility]. [facility] to deliver medication 2000 01/17/23. Needs for Transition of Care: Plan for discharge is: Home w/o Services *[facility] has declined Outpatient IV Medications - IV Access: PICC [facility]AT Orders: [facility] Orders Location: Home Agency Referrals & Follow-up Care: Contact information for follow-up [facility], [facility] [address] [place] [address] Transportation: family or friend will provide Wheelchair van/Ambulance? No Functional status prior to admission: Independent Home Environment: Others in the home: child(bjorn), adult. Current Living Arrangements: home/apartment/condo. Accessibility Concerns:N/A. Current Functional Ability: Independent DME used at home: none DME Needed at Discharge: none Patient is insured through: Primary Insurance: [place] Payor: [place] / Plan: [place] PRIMARY CARE PLUS / Product Type: *No Product type* / Secondary Insurance: N/A Prescription Coverage: Yes This plan was formulated with input from patient, Mesfin and team. All are in agreement with plan. Anuja Hughes RN [phone] Pager [phone] * Plan of Care - Jaycee Davila RN - 01/17/2023 5:47 AM EDT Patient received resting on bed. Alert, orientedx4. Order reviewed. Vs checked;spo2 stable on RA. Pain well managed with tylenol and PRN dilaudid. Nicotine patch in place. Fall precautions in place. Family at bedside. Pt denies any headache,CP,SOB, nausea, vomiting and abdominal cramping.PICC line in place and am labs drawn. No acute distress noticed, Will continue to monitor. Problem: Adult Inpatient Plan of Care Goal: Plan of Care Review Outcome: Ongoing (Interventions Implemented as Appropriate) Goal: Patient-Specific Goal (Individualized) Outcome: Ongoing (Interventions Implemented as Appropriate) Goal: Absence of Hospital-Acquired Illness or Injury Outcome: Ongoing (Interventions Implemented as Appropriate) Goal: Optimal Comfort and Wellbeing Outcome: Ongoing (Interventions Implemented as Appropriate) Goal: Readiness for Transition of Care Outcome: Ongoing (Interventions Implemented as Appropriate) Problem: Fall Injury Risk Goal: Absence of Fall and Fall-Related Injury Outcome: Ongoing (Interventions Implemented as Appropriate) Problem: Pain Acute Goal: Acceptable Pain Control and Functional Ability Outcome: Ongoing (Interventions Implemented as Appropriate) * Plan of Care - Soledad Cosby RN - 01/16/2023 3:04 PM EDT Peripherally Inserted Central Catheter (PICC) Teaching Sheet Peripherally inserted central catheters ([id number]) (PICC) are used when you need IV (intravenous) medicines and fluids. A catheter is a small flexible plastic tube. The catheter is put in througha vein under your skin. A vein is a tube inside your body that carries blood from the body to the heart. The catheter is usually put into a vein on the inside of your upper arm. Then it is threaded up this vein and ends in the blood vessel near your heart. The PICC catheter may be used for taking blood for laboratory tests. You may also get IV fluids andmedicines quickly and easily. Having the catheter may keep your arm from being stuck many times with a needle. The catheter will have 1-3 small tails (tubes) coming from your arm where the catheter was put in. Why do I need a PICC line or midline catheter? PICC lines are used for longwall shearer operator treatments. PICC lines may be used for up to a year. They are often put in to give you IV medicines at home. You may need a PICC catheter because caregivers cannot use smaller veins in your body. Smaller veins may be damaged, or they may have poor blood flow. Catheters are also used in case of emergency when you would need medicines or fluids very quickly. The following are medicines and treatments you may get when you have a PICC line. ?? Antibiotics. These are medicines to prevent infection. ?? Frequent blood sample collection. ?? IV medicines that would make your smaller veins sore or damaged. ?? Receiving IV fluids for a long period of time. ?? Pain medicine. ?? Total Parenteral Nutrition: This is also called TPN. TPN is a special liquid food that goes directly into your veins. ?? Blood ?? Chemotherapy (Medicine for cancer) What are the benefits of having a PICC line put in? Having a PICC line may keep your arm from being stuck many times with a needle to draw blood or start an IV (intravenous catheter) . Through a PICC catheter, you may have blood taken for tests. You may also get IV fluids and medicines quickly and easily. Small veins can be damaged or irritated by certain drugs or nutritional solutions. A PICC line helps to decrease vein irritation from antibiotics, IV pain drugs, or IV cancer drugs. A PICC line can be left in place when you go home. If you go home with a PICC line in place, home care can be set up via the nurse Diecast Machine Operator to help you. What are possible complications of having a PICC line put in? Some possible complications are: bruising, swelling, or infection in the arm with the PICC line mal-positioned catheter (catheter tip in wrong place) occlusion (blocked catheter) mechanical phlebitis (vein irritation) and thrombosis (clot) Your doctor is the person you should talk to if you have questions about what would happen if you do not choose to have a PICC line put in. Your doctor can talk to you about other choices you may have. What should I expect when it is put in? A written consent that gives your ok to have it put in needs to be signed after you understand thatyou are going to have a PICC put in, and all your questions about the procedure have been answered to your satisfaction. This is a safety feature that the hospital practices before doing procedures. An experienced nurse who has been through special training and education will be putting this catheter in. The procedure is done in a specially equipped room in Interventional Radiology on the third floor. The PICC nurse will first talk to you about any questions that you may have. The PICC nurse will explain to you what is going to be done before starting. Once you arrive in the procedure room in Interventional Radiology, the PICC nurse will then set up for the procedure. She will unwrap the sterile kit and open the needed supplies. A gown and mask andgloves will be worn while putting it in. An ultrasound machine will be used to help guide the catheter in the right place. This machine uses a handle with sound waves to find the vein. The area on your arm where the catheter will be put in is then numbed with a medicine put under your skin with a tiny needle. The nurse will then put in the catheter using fluoroscopy (a type of x-ray) as a guide. Once the catheter is in your vein, it will be threaded up your arm to the area beforeyour heart. While it is being threaded, you may be asked to turn your head. When the catheter is in, the nurse will place a small dressing on the site along with a little donaldson which will help keep the catheter in place. After the procedure is done, a radiologist (doctor in x-ray department) will look at your x-ray to make sure that the end of the catheter is in proper position to give your fluids and/or medications. What should I expect in the care of my PICC? A dressing that is specially made to prevent infections will be put on. After this, the dressing will only be changed once a week unless it needs it sooner. If you go home with the catheter in, you may take a shower as long as you keep the site dry. You can do this by wearing a specially fitted PICC protector that will be provided to you before dischargefrom the hospital. The dressing at the site must be kept clean and dry. It is important that you watch for signs of infection at the site. Your healthcare provider should be notified if these occur: Redness Swelling Pus Pain at the site Other reasons to notify your healthcare provider are: Catheter becomes partially or totally removed Unable to infuse medication/fluid Unable to draw back blood from the catheter. This may be an early sign that a clot is forming on the end of the catheter. If this occurs, a medicine called Cathflo may be used to dissolve this clot. Ask the PICC nurse or your doctor, any questions you may have so you feel secure in consenting to having a PICC line. References: Vascular Access Device Selection, Insertion, and Management, [employer] 03/21. A Review of the Efficacy, Safety, Use, and Administration of Cathflo, [employer] 2005 * Care Management - Almaz Dong RN - 01/16/2023 11:20 AM EDT OFFICE OF CARE MANAGEMENT PROGRESS NOTE LOS: Hospital Day 13 days Chart reviewed, care reviewed with primary team and at interdisciplinary rounds. Patient is medically ready for discharge pending OPAT arrangement. Decision Maker: Self Functional status prior to admission: Independent Home Environment: Others in the home: child(bjorn), adult. Current Living Arrangements: home/apartment/condo. Accessibility Concerns: N/A. Current Functional Ability: Independent DME used at home: none DME Needed at Discharge: No Patient is insured through: Primary Insurance: [place] Payor: [place] / Plan: [place] PRIMARY CARE PL[place] / Product Type: *No Product type* / Secondary Insurance: N/A Last Physical Therapy Recommendation: with Last Occupational Therapy Recommendation: with Plan for discharge is: Home w/ Services Outpatient IV Medications - IV Access: PICC OPAT Orders: ID Consult Ordered Agency Referrals: I have met with the patient to: discuss discharge planning needs. provide the [facility], Office of Care Management letter from the Plate Grinder pertaining to rehab referrals. provide a letter describing our affiliations within the [facility] and educate about their right to choose where referrals are sent. provide a list of Home Health Agencies / Durable Medical Equipment vendors which serve their preferred geographic area. provided patient with [facility] Star Quality Rating handout. They have requested referrals to: [facility]. [address] [place] [id number] Note routed to a Fast Food Server who will communicate referrals to facilities and provide any required information. Transportation: family or friend will provide Barriers to discharge: Discharge planning Plan going forward: Care Management will continue to follow and assist with discharge planning and coordination of care as indicated. 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 History of traumatic stress and illicit opioid use. Ms Lackey is A&Ox4, pleasant, and cooperative, reports her mood is good, I might go home soon, denies opioid withdrawal symptoms or craving on Methadone 140 Mg daily for OUD, also getting dilaudid prn for acute pain, no acute safety concerns. Ms Lackey reaffirms her motivation to abstain from illicit opioid use with the ongoing clinical support of Methadone assisted therapy and has contacted [facility] to inform them of her hospitalization. She is agreeable to continued consultation between her team and [facility] in regard to Methadone dose titration and transfer of care. [address] [place], [place] [id number] Ms Lackey endorses a history of traumatic stress. The benefits of Trauma- Focused EMDR Therapy in conjunction with substance use counseling were discussed and resources were provided. Ms Lackey was encouraged to practice 4-7 8 Breathing technique for acute stress coping. [facility] to provide Reiki/massage therapy. Ms Lackey expressed interest in re-employment and plans to go back to school to be a therapy technician.She received contact information for [employer], an employment agency providing an opportunity for successful employment and recovery by empowering individuals to manage challenges because of substance use addiction and past convictions. Assessment: Ms Lackey is a 32-year-old woman admitted from OSH with L3-S1 epidural abscess. History of traumatic stress and illicit opioid use. Currently without opioid withdrawal symptoms or craving on Methadone 140 Mg daily for OUD, also getting dilaudid prn for acute pain, no acute safety concerns. Motivated to abstain from illicit opioid use with the ongoing clinical support of Methadone assisted therapy and has contacted [facility] to inform them of her hospitalization. She is agreeable to continued consultation between her team and [facility] in regard to Methadone dose titration and transfer of care. She was encouraged to consider engagement in Trauma-Focused EMDR Therapy in conjunction with substance use counseling. She was encouraged to practice 4-7 8 Breathing technique for acute stress coping. [facility] to see for Reiki/massage therapy. She was encouraged to contact [employer] for employment opportunities. Interventions delivered: Consulted with care team Mindfulness Based Stress Reduction Motivational interviewing Pharmacologic treatment Resource coordination - outpatient mental health Resource coordination - substance use treatment Other: EMDR Therapy education Recommend: -Continued consultation between between primary team and [facility] in regard to Methadone titration andtransfer of care. -Will likely need additional Methadone dose titration as acute pain subsides, prn dilaudid is decreased, and QTC allows (01/14 QTC 482 per EMR). -Consider consolidating Methadone dose to once daily, consistent with outpatient clinic dosing. Plan: 1. Patient plans to abstain from illicit opioid use with the ongoing clinical support of Methadone assisted therapy and has contacted [facility] to inform them of her hospitalization. 2. Patient was encouraged to consider engagement in Trauma-Focused EMDR Therapy in conjunction withsubstance use counseling. 3. Patient was encouraged to practice 4-7 8 Breathing technique for acute stress coping. 4. Patient was encouraged to contact [employer] for employment opportunities. Outstanding Discharge Needs: Naloxone prescription Primary team should notify the outpatient methadone treatment program of the time of discharge and the time and amount of last dose of methadone to ensure that outpatient pharmacotherapy can be resumed without interruption. Time spent with the patient (min):15 minutes Time spent on case coordination (min): 15 minutes * Plan of Care - Alexandrea Thompson RN - 01/16/2023 1:47 AM EDT OUTCOME EVALUATION NOTE: OUTCOME SUMMARY: Pain managed with scheduled and prn medication, see MAR. Ambulated to the bathroom with walker and SBA. Expressed she is anxious to go home 01/16. Family visits, visitors searched per policy. AUOP via bathroom. ABX continue. PLAN MOVING FORWARD: ABX IV Mobilize. Monitor VS, labs, I/O's Discharge planning INDIVIDUALIZED FALL PREVENTION INTERVENTIONS: Patient-specific fall risk factors per assessment: [current deficits]: Hospital environment. Assistance [level of assistance required for transfers and ambulation]: Independent with walker Supervision [direct monitoring required during toileting and ADLs]: Independent Surveillance [continuous indirect monitoring]: Masimo. Purposeful rounding. Environmental modifications. Call light within reach. Nurse knowledge exchange. Patient-specific fall prevention interventions for sensory deficits provided, if applicable: [X] N/A CARE PLAN GOAL OUTCOME EVALUATION: Problem: Adult Inpatient Plan of Care Goal: Plan of Care Review Outcome: Ongoing (Interventions Implemented as Appropriate) Goal: Patient-Specific Goal (Individualized) Outcome: Ongoing (Interventions Implemented as Appropriate) Goal: Absence of Hospital-Acquired Illness or Injury Outcome: Ongoing (Interventions Implemented as Appropriate) Goal: Optimal Comfort and Wellbeing Outcome: Ongoing (Interventions Implemented as Appropriate) Goal: Readiness for Transition of Care Outcome: Ongoing (Interventions Implemented as Appropriate) Problem: Fall Injury Risk Goal: Absence of Fall and Fall-Related Injury Outcome: Ongoing (Interventions Implemented as Appropriate) Problem: Pain Acute Goal: Acceptable Pain Control and Functional Ability Outcome: Ongoing (Interventions Implemented as Appropriate) * Plan of Care - Ivette Linares RN - 01/15/2023 1:25 PM EDT OUTCOME EVALUATION NOTE: OUTCOME SUMMARY: Patient is alert and oriented. VSS. She is on RA she rates her pain 5/10. Prn dilaudid administeredper order for back pain. She ambulates independently with the walker. Gait steady. Appetite is good. PLAN MOVING FORWARD: IV antibiotics Possible d/c tomorrow INDIVIDUALIZED FALL PREVENTION INTERVENTIONS: Patient-specific fall risk factors per assessment: [current deficits]: generalized weakness Assistance [level of assistance required for transfers and ambulation]: independent Supervision [direct monitoring required during toileting and ADLs]: independent Surveillance [continuous indirect monitoring]: Nurse knowledge exchange, purposeful rounding, environmental modifications (waste basket is out of the path and the IV tubing and cords are free from the floor), fall reduction program in place, lighting adjusted for task, bed in low position, wheels lo cked, side rails up (x2), nonskid socks worn OOB, no restraints, call light is within reach at all times, assistive device, bed/chair alarm, [place] ID band on Patient-specific fall prevention interventions for sensory deficits provided, if applicable: [X] N/A CARE PLAN GOAL OUTCOME EVALUATION: Problem: Adult Inpatient Plan of Care Goal: Plan of Care Review Outcome: Ongoing (Interventions Implemented as Appropriate) Goal: Patient-Specific Goal (Individualized) Outcome: Ongoing (Interventions Implemented as Appropriate) Goal: Absence of Hospital-Acquired Illness or Injury Outcome: Ongoing (Interventions Implemented as Appropriate) Goal: Optimal Comfort and Wellbeing Outcome: Ongoing (Interventions Implemented as Appropriate) Goal: Readiness for Transition of Care Outcome: Ongoing (Interventions Implemented as Appropriate) Problem: Fall Injury Risk Goal: Absence of Fall and Fall-Related Injury Outcome: Ongoing (Interventions Implemented as Appropriate) Problem: Pain Acute Goal: Acceptable Pain Control and Functional Ability Outcome: Ongoing (Interventions Implemented as Appropriate) * Consult Note - Tiffnay Villavicencio - 01/15/2023 1:10 PM EDT This CHW met with patient to discuss possible plans for OPAT and to let her know that a multidisciplinary meeting will be held tomorrow at 11am, to figure out what the best option for her would be. Patient was happy about this. She reported that tomorrow is her 's birthday and one of her son's first football games and she was hoping to be able to attend. Apparently the family has not stayed at [facility] for a couple nights now. CHW and patient discussed her methadone dose and the fact that she wouldn't be discharging on the 200mg that she was taking prior to admission. She stated that leaving on 140mg was ok and that it would not be a trigger for her wanting to use. Patient states I'm all set with using after this admission and that her methadone clinic can titrate her back up 10mg every other day, therefore it won't take her long to get back up to 200mg. CHW will attend the multidisciplinary [facility] OPAT meeting tomorrow and check in with patient after. Tiffany Villavicencio Fast Food Server * Care Management - Almaz Dong RN - 01/15/2023 12:40 PM EDT OFFICE OF CARE MANAGEMENT PROGRESS NOTE LOS: Hospital Day 12 days Chart reviewed, care reviewed with primary team and at interdisciplinary rounds. Patient continues to meet inpatient level of care related to: epidural abscess, pain management. Decision Maker: Self Functional status prior to admission: Independent Home Environment: Others in the home: child(jborn), adult. Current Living Arrangements: home/apartment/condo. Accessibility Concerns: N/A. Current Functional Ability: Independent DME used at home: none DME Needed at Discharge: No Patient is insured through: Primary Insurance: [place] Pay[place] / Plan[place] PRIMARY CARE [place] / Product Type: *No Product type* / Secondary Insurance: N/A Last Physical Therapy Recommendation: with Last Occupational Therapy Recommendation: with Plan for discharge is: Home w/ Services Outpatient IV Medications - IV Access: PICC OPAT Orders: ID Consult Ordered Agency Referrals: Multidisciplinary team meeting with OPAT/BIT to discuss discharge planning r/t antibiotic management scheduled for 01/16 at 1100. [facility] following. Transportation: family or friend will provide Barriers to discharge: Discharge planning Plan going forward: Care Management will continue to follow and assist with discharge planning and coordination of care as indicated. Anticipated Date of Discharge: 01/18/2023 Almaz Dong RN, BSN Mechanical Service Specialist- Medicine Office of Care Management Office: [phone] Pager: [phone] * Plan of Care - Alexandrea Thompson RN - 01/15/2023 6:16 AM EDT OUTCOME EVALUATION NOTE: OUTCOME SUMMARY: Pain managed with scheduled and prn medications, see MAR. Ambulated with SBA and walker, in room and in the pitts. Taking po well. ABX continue. PLAN MOVING FORWARD: Monitor/ manage pain ABX Discharge planning INDIVIDUALIZED FALL PREVENTION INTERVENTIONS: Patient-specific fall risk factors per assessment: [current deficits]: Pain and pain medications. Hospital environment. Assistance [level of assistance required for transfers and ambulation]: SBA w/ walker Supervision [direct monitoring required during toileting and ADLs]: Eyes on Surveillance [continuous indirect monitoring]: Masimo. Purposeful rounding. Environmental modifications. Bed alarm. Call light within reach. Nurseknowledge exchange. Patient-specific fall prevention interventions for sensory deficits provided, if applicable: [X] N/A CARE PLAN GOAL OUTCOME EVALUATION: Problem: Adult Inpatient Plan of Care Goal: Plan of Care Review Outcome: Ongoing (Interventions Implemented as Appropriate) Flowsheets (Taken 01/15/2023 0615) Plan of Care Reviewed With: patient Progress: no change Goal: Patient-Specific Goal (Individualized) Outcome: Ongoing (Interventions Implemented as Appropriate) Goal: Absence of Hospital-Acquired Illness or Injury Outcome: Ongoing (Interventions Implemented as Appropriate) Goal: Optimal Comfort and Wellbeing Outcome: Ongoing (Interventions Implemented as Appropriate) Goal: Readiness for Transition of Care Outcome: Ongoing (Interventions Implemented as Appropriate) Problem: Fall Injury Risk Goal: Absence of Fall and Fall-Related Injury Outcome: Ongoing (Interventions Implemented as Appropriate) * Consult Note - Josefina Posaad, [facility] - 01/14/2023 6:17 PM EDT Clinical Pharmacist Note-Vanc Mesfin Lackey [phone] 1990 Mesfin Lackey is a 32 y.o. female is being monitored due to antibiotic therapy which includes intravenous vancomycin. Regimen: Vancomycin 1750 mg every 8 hours Day of Therapy:11 Targeted Goal Range: AUC 400-600 Pharmacokinetic information: Wt Readings from Last 1 Encounters: 01/04/23 (!) 142.3 kg (313 lb 11.4 oz) Ht Readings from Last 1 Encounters: 01/04/23 177.8 cm (5' 10) Labs: Vancomycin: Vanc Trough (mg/L) Date Value 01/14/2023 17.2 Creatinine clearance: Creatinine (mg/dL) Date Value 01/14/2023 0.66 (L) Recommendations: Dosing recommendations: No change in vancomycin dose or dosing interval at this time. Monitoring recommendations: Recheck vancomycin if significant changes in SCr, BUN or fluid status occur; otherwise recheck in 5-7 days. We will continue to monitor the patient as long as she remains on vancomycin therapy. Please watch SCr, BUN and fluid status closely. Please page the care area pharmacist with any questions you may have. Alternately, during off-hours you may call [phone] to contact a pharmacist. Josefina Posada [facility] Pager [phone] * Plan of Care - Tash Gimenez RN - 01/14/2023 3:55 PM EDT Problem: Adult Inpatient Plan of Care Goal: Plan of Care Review Outcome: Ongoing (Interventions Implemented as Appropriate) Goal: Patient-Specific Goal (Individualized) Outcome: Ongoing (Interventions Implemented as Appropriate) Goal: Absence of Hospital-Acquired Illness or Injury Outcome: Ongoing (Interventions Implemented as Appropriate) Goal: Optimal Comfort and Wellbeing Outcome: Ongoing (Interventions Implemented as Appropriate) Goal: Readiness for Transition of Care Outcome: Ongoing (Interventions Implemented as Appropriate) Problem: Fall Injury Risk Goal: Absence of Fall and Fall-Related Injury Outcome: Ongoing (Interventions Implemented as Appropriate) Problem: Pain Acute Goal: Acceptable Pain Control and Functional Ability Outcome: Ongoing (Interventions Implemented as Appropriate) * Plan of Care - Marialuisa Velazquez RN - 01/14/2023 12:57 AM EDT Problem: Adult Inpatient Plan of Care Goal: Plan of Care Review Outcome: Ongoing (Interventions Implemented as Appropriate) Flowsheets (Taken 01/14/2023 0056) Plan of Care Reviewed With: patient Goal: Patient-Specific Goal (Individualized) Outcome: Ongoing (Interventions Implemented as Appropriate) Flowsheets (Taken 01/06/2023 0123 by Jenn Villafana RN) Anxieties, Fears or Concerns: Pain control Goal: Absence of Hospital-Acquired Illness or Injury Outcome: Ongoing (Interventions Implemented as Appropriate) Intervention: Identify and Manage Fall Risk Flowsheets (Taken 01/13/2023 0816 by Ievtte Linares RN) Safety Promotion/Fall Prevention: activity supervised assistive device/personal items within reach clutter free environment maintained fall prevention program maintained lighting adjusted mobility aid in reach nonskid shoes/slippers when out of bed room organization consistent safety round/check completed Intervention: Prevent Skin Injury Flowsheets (Taken 01/13/20232206) Body Position: position changed independently Intervention: Prevent and Manage VTE (Venous Thromboembolism) Risk Flowsheets (Taken 01/13/20232206) VTE Prevention/Management: anticoagulant therapy Intervention: Prevent Infection Flowsheets (Taken 01/13/20232206) Infection Prevention: environmental surveillance performed Goal: Optimal Comfort and Wellbeing Outcome: Ongoing (Interventions Implemented as Appropriate) Intervention: Monitor Pain and Promote Comfort Note: Consistent PRN medications given for pain. Goal: Readiness for Transition of Care Outcome: Ongoing (Interventions Implemented as Appropriate) Intervention: Mutually Develop Transition Plan Flowsheets (Taken 01/04/2023 1530 by Rashad Scales MSW) Current Outpatient/Agency/Support Group: (Methadone tx) outpatient substance abuse treatment other (see comments) Readmission Within the Last 30 Days: no previous admission in last 30 days Problem: Fall Injury Risk Goal: Absence of Fall and Fall-Related Injury Outcome: Ongoing (Interventions Implemented as Appropriate) Problem: Pain Acute Goal: Acceptable Pain Control and Functional Ability Outcome: Ongoing (Interventions Implemented as Appropriate) OUTCOME EVALUATION NOTE: OUTCOME SUMMARY: Pt A/Ox4, VSS. 5-8/10 pain controlled with PRN Dilaudid. Pt tolerating normal diet with no N/V. AUOP via bathroom, no BM this shift. Pt resting well between care. AM labs drawn via PICC, flushed with good blood return. PLAN MOVING FORWARD: Pain control Abx Daily labs Plan for d/c INDIVIDUALIZED FALL PREVENTION INTERVENTIONS: Moderate Fall Risk Patient-specific fall risk factors per assessment: [current deficits]: Lines and tubes, medication,hospital environment, spinal infection Assistance [level of assistance required for transfers and ambulation]: SBA Supervision [direct monitoring required during toileting and ADLs]: Hands on Surveillance [continuous indirect monitoring]: Nurse knowledge exchange, purposeful rounding, environmental modifications (waste basket is out of the path and the IV tubing and cords are free from the floor), fall reduction program in place, lighting adjusted for task, bed in low position, wheels lo cked, side rails up (x2), nonskid socks worn OOB, no restraints, call light is within reach at all times, assistive device, bed/chair alarm, [place] ID band on Patient-specific fall prevention interventions for sensory deficits provided, if applicable: [X] N/A CARE PLAN GOAL OUTCOME EVALUATION: * Plan of Care - Ivette Linares RN - 01/13/2023 1:33 PM EDT OUTCOME EVALUATION NOTE: OUTCOME SUMMARY: Patient is alert and oriented. Neuro check WNL. VSS. She is on RA. She rates her pain at a 5 after administration of prn dilaudid per order. Visitors screened by security. She is up in the chair for meals. She ambulates with standby assist and walker to the bathroom appetite is good. She continues on IV antibiotics per order. PLAN MOVING FORWARD: Pain management IV antibiotics INDIVIDUALIZED FALL PREVENTION INTERVENTIONS: Patient-specific fall risk factors per assessment: [current deficits]: generalized weakness Assistance [level of assistance required for transfers and ambulation]: SBA and walker Supervision [direct monitoring required during toileting and ADLs]: independent Surveillance [continuous indirect monitoring]: Nurse knowledge exchange, purposeful rounding, environmental modifications (waste basket is out of the path and the IV tubing and cords are free from the floor), fall reduction program in place, lighting adjusted for task, bed in low position, wheels lo cked, side rails up (x2), nonskid socks worn OOB, no restraints, call light is within reach at all times, assistive device, bed/chair alarm, [place] ID band on Patient-specific fall prevention interventions for sensory deficits provided, if applicable: [X] No CARE PLAN GOAL OUTCOME EVALUATION: Problem: Adult Inpatient Plan of Care Goal: Plan of Care Review Outcome: Ongoing (Interventions Implemented as Appropriate) Goal: Patient-Specific Goal (Individualized) Outcome: Ongoing (Interventions Implemented as Appropriate) Goal: Absence of Hospital-Acquired Illness or Injury Outcome: Ongoing (Interventions Implemented as Appropriate) Goal: Optimal Comfort and Wellbeing Outcome: Ongoing (Interventions Implemented as Appropriate) Goal: Readiness for Transition of Care Outcome: Ongoing (Interventions Implemented as Appropriate) Problem: Fall Injury Risk Goal: Absence of Fall and Fall-Related Injury Outcome: Ongoing (Interventions Implemented as Appropriate) Problem: Pain Acute Goal: Acceptable Pain Control and Functional Ability Outcome: Ongoing (Interventions Implemented as Appropriate) * Plan of Care - Marialuisa Velazquez RN - 01/13/2023 2:26 AM EDT Problem: Adult Inpatient Plan of Care Goal: Plan of Care Review Outcome: Ongoing (Interventions Implemented as Appropriate) Goal: Patient-Specific Goal (Individualized) Outcome: Ongoing (Interventions Implemented as Appropriate) Goal: Absence of Hospital-Acquired Illness or Injury Outcome: Ongoing (Interventions Implemented as Appropriate) Goal: Optimal Comfort and Wellbeing Outcome: Ongoing (Interventions Implemented as Appropriate) Goal: Readiness for Transition of Care Outcome: Ongoing (Interventions Implemented as Appropriate) Problem: Fall Injury Risk Goal: Absence of Fall and Fall-Related Injury Outcome: Ongoing (Interventions Implemented as Appropriate) Intervention: Identify and Manage Contributors Flowsheets (Taken 01/13/2023224) Medication Review/Management: medications reviewed Self-Care Promotion: independence encouraged Intervention: Promote Injury-Free Environment Flowsheets (Taken 01/13/2023224) Safety Promotion/Fall Prevention: activity supervised assistive device/personal items within reach clutter free environment maintained elopement precautions initiated fall prevention program maintained mobility aid in reach lighting adjusted nonskid shoes/slippers when out of bed room organization consistent safety round/check completed Problem: Pain Acute Goal: Acceptable Pain Control and Functional Ability Outcome: Ongoing (Interventions Implemented as Appropriate) Intervention: Develop Pain Management Plan Flowsheets (Taken 01/13/2023224) Pain Management Interventions: [id number] dosing utilized Intervention: Prevent or Manage Pain Flowsheets (Taken 01/13/2023224) Bowel Elimination Promotion: adequate fluid intake promoted Medication Review/Management: medications reviewed Sleep/Rest Enhancement: awakenings minimized family presence promoted consistent schedule promoted Intervention: Optimize Psychosocial Wellbeing Flowsheets (Taken 01/13/2023224) Diversional Activities: television smartphone Supportive Measures: active listening utilized OUTCOME EVALUATION NOTE: OUTCOME SUMMARY: Pt A/Ox4, VSS. 7/10 pain controlled with PRN Dilaudid. Pt tolerating normal diet with no N/V. AUOP via bathroom, no BM this shift. Pt showered at beginning of shift. Pt PICC flushed, no blood return.06/18 Vanc given, aware. Vascular services paged x2. Pt resting well between care, OOBTC x1. at bedside. Vascular paged to bedside to draw labs. Vanc could not be completed due to down stream occlusion from PICC. PLAN MOVING FORWARD: Pain control Abx Daily labs Plan for d/c INDIVIDUALIZED FALL PREVENTION INTERVENTIONS: Moderate Fall Risk Patient-specific fall risk factors per assessment: [current deficits]: Lines and tubes, medication,hospital environment, spinal infection Assistance [level of assistance required for transfers and ambulation]: SBA Supervision [direct monitoring required during toileting and ADLs]: Hands on Surveillance [continuous indirect monitoring]: Nurse knowledge exchange, purposeful rounding, environmental modifications (waste basket is out of the path and the IV tubing and cords are free from the floor), fall reduction program in place, lighting adjusted for task, bed in low position, wheels lo cked, side rails up (x2), nonskid socks worn OOB, no restraints, call light is within reach at all times, assistive device, bed/chair alarm, [place] ID band on Patient-specific fall prevention interventions for sensory deficits provided, if applicable: [X] N/A CARE PLAN GOAL OUTCOME EVALUATION: * Plan of Care - Jenn Villafana RN - 01/12/2023 3:53 PM EDT OUTCOME EVALUATION NOTE: OUTCOME SUMMARY: Patient progressing towards d/c goals appropriately at this time. Patient complained of 7-8/10 painmanaged with scheduled medications and PRN dilaudid. A/Ox4, VSS on RA. Neuro checks WNL. AUOP via bathroom, BM x1 this shift. Ambulates in room independently. Spent some time OOBTC today. Double lumen PICC in place to RUE. IV abx administered per AUG. Plan of care continues. Patient Vitals for the past 8 hrs: BP Temp Temp src Resp SpO2 01/12/23 1525 (!) 142/94 37 ??C (98.6 ??F) Oral 18 95 % 01/12/23 0813 142/82 36.6 ??C (97.9 ??F) Oral 18 98 % PLAN MOVING FORWARD: Pain control Mobilize Q4 neuro checks D/c planning INDIVIDUALIZED FALL PREVENTION: Patient is currently a medium risk to Fall. Patient educated on bed/chair alarm, demonstrates proper use of call amin and verbalizes understanding of fall preventions implemented. Patient-specific fall risk factors per assessment: [current deficits]: Weakness, Pain, Medications,Hospital Environment, Decreased lighting, fatigue, recent procedure. Assistance [level of assistance required for transfers and ambulation]: Independent Supervision [direct monitoring required during toileting and ADLs]: Independent with ADL's Surveillance [continuous indirect monitoring]: Masimo, Purposeful Rounding, Bedside Report Patient-specific fall prevention interventions for sensory deficits provided, if applicable: [X] N/A CPG GOAL OUTCOME EVALUATION: * Plan of Care - Lizzy Warner RN - 01/12/2023 1:04 AM EDT OUTCOME EVALUATION NOTE: OUTCOME SUMMARY: Pt A&Ox4. Pain being managed with PRN dilaudid. Ambulates around room with walker. Labs draws from PICC this AM. PLAN MOVING FORWARD: Abx therapy Pain management D/C planning INDIVIDUALIZED FALL PREVENTION INTERVENTIONS: low to moderate Patient-specific fall risk factors per assessment: [current deficits]: pain meds, hospital environment Assistance [level of assistance required for transfers and ambulation]: standby w/ walker Supervision [direct monitoring required during toileting and ADLs]: standby Surveillance [continuous indirect monitoring]: Nurse knowledge exchange, purposeful rounding, environmental modifications (waste basket is out of the path and the IV tubing and cords are free from the floor), fall reduction program in place, lighting adjusted for task, bed in low position, wheels lo cked, side rails up (x2), nonskid socks worn OOB, no restraints, call light is within reach at all times, assistive device, bed/chair alarm, [place] ID band on Patient-specific fall prevention interventions for sensory deficits provided, if applicable: N/A CARE PLAN GOAL OUTCOME EVALUATION: Problem: Adult Inpatient Plan of Care Goal: Plan of Care Review Outcome: Ongoing (Interventions Implemented as Appropriate) Goal: Patient-Specific Goal (Individualized) Outcome: Ongoing (Interventions Implemented as Appropriate) Goal: Absence of Hospital-Acquired Illness or Injury Outcome: Ongoing (Interventions Implemented as Appropriate) Goal: Optimal Comfort and Wellbeing Outcome: Ongoing (Interventions Implemented as Appropriate) Goal: Readiness for Transition of Care Outcome: Ongoing (Interventions Implemented as Appropriate) Problem: Fall Injury Risk Goal: Absence of Fall and Fall-Related Injury Outcome: Ongoing (Interventions Implemented as Appropriate) Problem: Pain Acute Goal: Acceptable Pain Control and Functional Ability Outcome: Ongoing (Interventions Implemented as Appropriate) * Plan of Care - Mulugeta Szymanski RN - 01/11/2023 2:45 PM EDT Problem: Adult Inpatient Plan of Care Goal: Plan of Care Review Outcome: Ongoing (Interventions Implemented as Appropriate) Goal: Patient-Specific Goal (Individualized) Outcome: Ongoing (Interventions Implemented as Appropriate) Goal: Absence of Hospital-Acquired Illness or Injury Outcome: Ongoing (Interventions Implemented as Appropriate) Goal: Optimal Comfort and Wellbeing Outcome: Ongoing (Interventions Implemented as Appropriate) Goal: Readiness for Transition of Care Outcome: Ongoing (Interventions Implemented as Appropriate) Problem: Fall Injury Risk Goal: Absence of Fall and Fall-Related Injury Outcome: Ongoing (Interventions Implemented as Appropriate) Problem: Pain Acute Goal: Acceptable Pain Control and Functional Ability Outcome: Ongoing (Interventions Implemented as Appropriate) OUTCOME EVALUATION NOTE: OUTCOME SUMMARY: Pain has been a steady -03/26 managed with ketamine gtt, PRN 8mg PO dilaudid x2, 6mg PO PRN dilaudid x1. Pt has had repeated requests r/t POC and when medications are due. Pt utilized walker when ambulating. AUOP via bathroom. Ketamine epidural d/c. Pt c/o pain have improved in the afternoon compared to this AM. Will continue with plan of care. PLAN MOVING FORWARD: IV ATB, manage pain, I&O's, d/c planning INDIVIDUALIZED FALL PREVENTION INTERVENTIONS: Patient-specific fall risk factors per assessment: [current deficits]: PICC, Ketamine gtt, pain, meds, hospital environment Assistance [level of assistance required for transfers and ambulation]: 1A FWW Supervision [direct monitoring required during toileting and ADLs]: eyes on Surveillance [continuous indirect monitoring]: Nurse knowledge exchange, purposeful rounding, environmental modifications (waste basket is out of the path and the IV tubing and cords are free from the floor), fall reduction program in place, lighting adjusted for task, bed in low position, wheels lo cked, side rails up (x2), nonskid socks worn OOB, no restraints, call light is within reach at all times, assistive device, bed/chair alarm, [place] ID band on Patient-specific fall prevention interventions for sensory deficits provided, if applicable: [X] N/A * Consult Note - Francis Llamas APRN - 01/11/2023 12:22 PM EDT BIT Evaluation Referral source: Consult request by primary team physician Reason for referral: Opioid Use Disorder. Medication-Assisted Treatment Plan Was patient offered MOUD: No. Reason MOUD not offered?: On MAT prior to admission. 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 History of traumatic stress and illicit opioid use. Ms Lackey's SO was present during evaluation. Ms Lackey is A&Ox4, pleasant, and cooperative, reports her mood is good, denies opioid withdrawal symptoms or craving on Methadone 45 Mg twice daily for OUD, also getting dilaudid prn for acute pain, denies AH/VH, denies SI/HI, endorses a history of traumatic stress, denies active PTSD symptoms. Ms Lackey described a history of illicit opioid use that began with on and off use of illicit pills when her opioid prescription was discontinued. Then followed five years of abstinence with Methadone assisted therapy before returning to use about two and a half years ago. She reports engagement in Methadone assisted therapy at [facility] in [facility] for the past year where she was maintained on Methadone 200 mg daily prior to this admission. She denies any alcohol use. Ms Lackey reports being motivated to abstain from illicit opioid use with the ongoing clinical support of Methadone assisted therapy and has contacted [facility] to inform them of her hospitalization. She is agreeable to continued consultation between her team and [facility] in regard to Methadone dose titration and transfer of care. [address] [place] [address] Ms Lackey endorses a history of traumatic stress. The benefits of Trauma- Focused EMDR Therapy in conjunction with substance use counseling were discussed and resources were provided. Ms Lackey was open to instruction in 4-7 8 Breathing technique for acute stress coping and received a printed resource for reference. She was added to the [facility] list for Reiki/massage therapyper her request. Ms Lackey expressed interest in re-employment and plans to go back to school to be a therapy technician.She received contact information for [employer], an employment agency providing an opportunity for successful employment and recovery by empowering individuals to manage challenges because of substance use addiction and past convictions. Assessment: Ms Lackey is a 32-year-old woman admitted from [facility] with L3-S1 epidural abscess. History of traumatic stress and illicit opioid use. Currently without opioid withdrawal symptoms or craving on Methadone 45 Mg twice daily for OUD, also getting dilaudid prn for acute pain, no acute safety concerns. Motivated to abstain from illicit opioid use with the ongoing clinical support of Methadone assisted therapy and has contacted [facility] to inform them of her hospitalization. She is agreeable to continued consultation between her team and [facility] in regard to Methadone dose titration and transfer of care. She was encouraged to consider engagement in Trauma-Focused EMDR Therapy in conjunction with substance use counseling. She was encouraged to practice 4-7 8 Breathing technique for acute stress coping. [facility] to see for Reiki/massage therapy. She was encouraged to contact [employer] for employment opportunities. Interventions delivered: Consulted with care team Mindfulness Based Stress Reduction Motivational interviewing Pharmacologic treatment Resource coordination - outpatient mental health Resource coordination - substance use treatment Other: EMDR Therapy education Recommend: -Continued consultation between between primary team and [facility] in regard to Methadone titration andtransfer of care. -Will likely need additional Methadone dose titration as acute pain subsides, prn dilaudid is decreased, and QTC allows (01/10 QTC 469 per EMR). -Consider consolidating Methadone dose to once daily, consistent with outpatient clinic dosing. Plan: 1. Patient plans to abstain from illicit opioid use with the ongoing clinical support of Methadone assisted therapy and has contacted [facility] to inform them of her hospitalization. 2. Patient was encouraged to consider engagement in Trauma-Focused EMDR Therapy in conjunction withsubstance use counseling. 3. Patient was encouraged to practice 4-7 8 Breathing technique for acute stress coping. 4. Patient was encouraged to contact [employer] for employment opportunities. Outstanding Discharge Needs: Naloxone prescription Primary team should notify the outpatient methadone treatment program of the time of discharge and the time and amount of last dose of methadone to ensure that outpatient pharmacotherapy can be resumed without interruption. Time spent with the patient (min):15 minutes Time spent on case coordination (min): 15 minutes * Plan of Care - Christin Amaro RN - 01/11/2023 3:13 AM EDT Problem: Adult Inpatient Plan of Care Goal: Readiness for Transition of Care Outcome: Ongoing (Interventions Implemented as Appropriate) Problem: Fall Injury Risk Goal: Absence of Fall and Fall-Related Injury Outcome: Ongoing (Interventions Implemented as Appropriate) Problem: Pain Acute Goal: Acceptable Pain Control and Functional Ability Outcome: Ongoing (Interventions Implemented as Appropriate) OUTCOME EVALUATION NOTE: OUTCOME SUMMARY: Patient alert and oriented. VSS. Pain consistently rating 8-10/10. Patient voiding appropriately via bathroom and BSC. Ketamine gtt, scheduled tylenol, and PRN dilaudid to manage pain. IV antibioticsfor infection. PLAN MOVING FORWARD: Pain management I's & O's IV abx INDIVIDUALIZED FALL PREVENTION INTERVENTIONS: Patient-specific fall risk factors per assessment: [current deficits]: IV pole, opioids, hospital environment Assistance [level of assistance required for transfers and ambulation]: Up x1 and walker Supervision [direct monitoring required during toileting and ADLs]: Hands on Surveillance [continuous indirect monitoring]: Masimo, purposeful rounding, call light within reach, nonskid socks when OOB, bed locked and in lowest position Patient-specific fall prevention interventions for sensory deficits provided, if applicable: [X] N/A * Plan of Care - Mulugeta Szymanski RN - 01/10/2023 1:59 PM EDT Problem: Adult Inpatient Plan of Care Goal: Plan of Care Review 01/10/2023 1359 by Mulugeta Szymanski RN Outcome: Ongoing (Interventions Implemented as Appropriate) 01/10/2023 1358 by Mulugeta Szymanski RN Flowsheets Taken 01/10/2023 1358 by Mulugeta Szymanski RN Plan of Care Reviewed With: patient Taken 01/09/2023 0244 by Alexandrea Thompson RN Progress: no change Goal: Patient-Specific Goal (Individualized) Outcome: Ongoing (Interventions Implemented as Appropriate) Goal: Absence of Hospital-Acquired Illness or Injury Outcome: Ongoing (Interventions Implemented as Appropriate) Goal: Optimal Comfort and Wellbeing Outcome: Ongoing (Interventions Implemented as Appropriate) Goal: Readiness for Transition of Care Outcome: Ongoing (Interventions Implemented as Appropriate) Problem: Fall Injury Risk Goal: Absence of Fall and Fall-Related Injury Outcome: Ongoing (Interventions Implemented as Appropriate) Problem: Pain Acute Goal: Acceptable Pain Control and Functional Ability Outcome: Ongoing (Interventions Implemented as Appropriate) OUTCOME EVALUATION NOTE: OUTCOME SUMMARY: Pain has been a steady -03/26 managed with ketamine gtt, PRN 8mg PO dilaudid x3, PRN PO ibuprofen x1 with moderate effects. Pt has had repeated requests r/t POC and when medications are due. Pt utilized walker when ambulating. AUOP via bathroom. Procedure today canceled. PICC dressing falling off at start of shift, reinforced with tape and IV team paged to replace dressing; XR to check placementpending at time of this note Pt c/o pain have improved in the afternoon compared to this AM. Will continue with plan of care. PLAN MOVING FORWARD: OR later. NPO, manage pain, I&O's INDIVIDUALIZED FALL PREVENTION INTERVENTIONS: Patient-specific fall risk factors per assessment: [current deficits]: PICC, Ketamine gtt, pain, meds, hospital environment Assistance [level of assistance required for transfers and ambulation]: 1A FWW Supervision [direct monitoring required during toileting and ADLs]: eyes on Surveillance [continuous indirect monitoring]: Nurse knowledge exchange, purposeful rounding, environmental modifications (waste basket is out of the path and the IV tubing and cords are free from the floor), fall reduction program in place, lighting adjusted for task, bed in low position, wheels lo cked, side rails up (x2), nonskid socks worn OOB, no restraints, call light is within reach at all times, assistive device, bed/chair alarm, [place] ID band on Patient-specific fall prevention interventions for sensory deficits provided, if applicable: [X] N/A * Care Management - Anuja Hughes RN - 01/10/2023 1:11 PM EDT Per medical team, there is a possibility that [facility] will need IV ABX. Referral for [facility] submitted for them to follow for potential needs. [address], [place] [address] Toll Free: Nursing Pharmacy Anuja Hughes RN [phone] Pager [phone] * Consult Note - Polina Green RN - 01/10/2023 8:29 AM EDT VAS asked to change PICC dressing this AM d/t lifting of dressing edges. On PICC dressing change, it was noted that external measurement is now 3cm, instead of 1cm as documented on insertion, possibly d/t positioning of catheter securement device and movement of right arm. Hospitalist team notifiedand CXR recommended to verify tip placement. * Plan of Care - Christin Amaro RN - 01/10/2023 6:44 AM EDT Problem: Adult Inpatient Plan of Care Goal: Readiness for Transition of Care Outcome: Ongoing (Interventions Implemented as Appropriate) Problem: Fall Injury Risk Goal: Absence of Fall and Fall-Related Injury Outcome: Ongoing (Interventions Implemented as Appropriate) Problem: Pain Acute Goal: Acceptable Pain Control and Functional Ability Outcome: Ongoing (Interventions Implemented as Appropriate) OUTCOME EVALUATION NOTE: OUTCOME SUMMARY: Patient alert and oriented. Elevated BP's overnight, but decreased with pain management. Pain consistently rating 8-10/10. Patient voiding appropriately via bathroom and BSC. Ketamine gtt, scheduled tylenol, and PRN dilaudid to manage pain. NPO since midnight for procedure today. PLAN MOVING FORWARD: Pain management I's & O's NPO INDIVIDUALIZED FALL PREVENTION INTERVENTIONS: Patient-specific fall risk factors per assessment: [current deficits]: IV pole, opioids, hospital environment Assistance [level of assistance required for transfers and ambulation]: Up x1 and walker Supervision [direct monitoring required during toileting and ADLs]: Hands on Surveillance [continuous indirect monitoring]: Masimo, purposeful rounding, call light within reach, nonskid socks when OOB, bed locked and in lowest position Patient-specific fall prevention interventions for sensory deficits provided, if applicable: [X] N/A CARE PLAN GOAL OUTCOME EVALUATION: * Plan of Care - Szymanski, Mulugeta Nance RN - 01/09/2023 2:31 PM EDT Problem: Adult Inpatient Plan of Care Goal: Plan of Care Review Outcome: Ongoing (Interventions Implemented as Appropriate) Goal: Patient-Specific Goal (Individualized) Outcome: Ongoing (Interventions Implemented as Appropriate) Goal: Absence of Hospital-Acquired Illness or Injury Outcome: Ongoing (Interventions Implemented as Appropriate) Goal: Optimal Comfort and Wellbeing Outcome: Ongoing (Interventions Implemented as Appropriate) Goal: Readiness for Transition of Care Outcome: Ongoing (Interventions Implemented as Appropriate) Problem: Fall Injury Risk Goal: Absence of Fall and Fall-Related Injury Outcome: Ongoing (Interventions Implemented as Appropriate) Problem: Pain Acute Goal: Acceptable Pain Control and Functional Ability Outcome: Ongoing (Interventions Implemented as Appropriate) OUTCOME EVALUATION NOTE: OUTCOME SUMMARY: Pain has been a steady 9-10/10 managed with ketamine gtt, PRN 8mg PO dilaudid x3, PRN PO ibuprofen x1 with moderate effects. Pt has had repeated requests r/t POC and when medications are due. Pt utilized walker when ambulating. AUOP via bathroom. NPO at midnight for procedure later. Pt c/o pain have improved in the afternoon compared to this AM. Will continue with plan of care. PLAN MOVING FORWARD: OR later. NPO, manage pain, I&O's INDIVIDUALIZED FALL PREVENTION INTERVENTIONS: Patient-specific fall risk factors per assessment: [current deficits]: PICC, Ketamine gtt, pain, meds, hospital environment Assistance [level of assistance required for transfers and ambulation]: 1A FWW Supervision [direct monitoring required during toileting and ADLs]: eyes on Surveillance [continuous indirect monitoring]: Nurse knowledge exchange, purposeful rounding, environmental modifications (waste basket is out of the path and the IV tubing and cords are free from the floor), fall reduction program in place, lighting adjusted for task, bed in low position, wheels lo cked, side rails up (x2), nonskid socks worn OOB, no restraints, call light is within reach at all times, assistive device, bed/chair alarm, [place] ID band on Patient-specific fall prevention interventions for sensory deficits provided, if applicable: [X] N/A * Consult Note - Tiffany Villavicencio - 01/09/2023 1:00 PM EDT This CHW went to meet with patient after receiving a phone call from her. When CHW arrived patient appeared to be much more comfortable then on previous visit; she was in her reclining chair watchingTV. Patient was appreciative of the bag of items child life brought down for her 8yo son; patient stated she also has a 12yo who would like a bag as well. CHW will reach back out to them. Patient spent most of the visit talking about what her substance use looked like prior to this admission. She reports that she was only using one bag every other day, only because I felt addicted tothe needle. Patient confirmed that she has been a patient at [facility] in [facility] for a year susan half; she states she just recently got titrated up to what she felt was a therapeutic dose; 200mgdaily. She is unsure why her dose still hasn't been confirmed but thinks this is part of the reasonwhy she has been in so much pain. Patient stated that she has no plan on using after this admissionas this situation has given her quite the scare. CHW and patient talked about harm reduction if she should inject again. Patient also reported that she lives close by to her mom and often has her children stay there if she feels I'm not good to be around them. CHW will continue to follow for on going support and potential PWID OPAT needs. Time Spent with Patient: 30minutes Tiffany Villavicencio Fast Food Server * Care Management - Almaz Dong RN - 01/09/2023 11:49 AM EDT OFFICE OF CARE MANAGEMENT PROGRESS NOTE LOS: Hospital Day 6 days Chart reviewed, care reviewed with primary team and at interdisciplinary rounds. Patient continues to meet inpatient level of care related to: epidural abscess progression, pain control, management of bacteremia. Decision Maker: Self Functional status prior to admission: Independent Home Environment: Others in the home: child(bjorn), adult. Current Living Arrangements: home/apartment/condo. Accessibility Concerns: N/A. Current Functional Ability: Independent DME used at home: none DME Needed at Discharge: No Patient is insured through: Primary Insurance: [place] Payor: [place] / Plan: [place] PRIMARY CARE PL[place] / Product Type: *No Product type* / Secondary Insurance: N/A Last Physical Therapy Recommendation: with Last Occupational Therapy Recommendation: with Plan for discharge is: Home w/ Services Outpatient IV Medications - IV Access: PICC OPAT Orders: ID Consult Ordered Agency Referrals: Will monitor need for OPAT/VNA Transportation: family or friend will provide Barriers to discharge: Discharge planning Plan going forward: Care Management will continue to follow and assist with discharge planning and coordination of care as indicated. Anticipated Date of Discharge: 01/11/2023 Almaz Dong RN, BSN Mechanical Service Specialist- Medicine Office of Care Management Office: [phone] Pager: [phone] * Plan of Care - Alexandrea Thompson RN - 01/09/2023 2:45 AM EDT OUTCOME EVALUATION NOTE: OUTCOME SUMMARY: Pain managed with ketamine gtt, scheduled and prn medications see MAR. Pt appropriately asking for pain medication while family present. After family left pt repeated yelling out. Requesting more medication right after receiving medication. Up with walker and 1 assist. Voiding in the BSC and in thebathroom. Tolerating po flds. PLAN MOVING FORWARD: Monitor/ manage pain Manage ketamine gtt Monitor VS, labs, I/O's ? OR, IV antibiotic Discharge planning INDIVIDUALIZED FALL PREVENTION INTERVENTIONS: Patient-specific fall risk factors per assessment: [current deficits]: Pain and pain medication. Hospital environment. Assistance [level of assistance required for transfers and ambulation]: 1 A w/ walker Supervision [direct monitoring required during toileting and ADLs]: Eyes on hands on Surveillance [continuous indirect monitoring]: Masimo. Purposeful rounding. Environmental modifications. Bed alarm. Call light within reach. Nurse knowledge exchange. Patient-specific fall prevention interventions for sensory deficits provided, if applicable: [X] N/A CARE PLAN GOAL OUTCOME EVALUATION: Problem: Adult Inpatient Plan of Care Goal: Plan of Care Review Outcome: Ongoing (Interventions Implemented as Appropriate) Flowsheets (Taken 01/09/2023 0244) Plan of Care Reviewed With: patient Progress: no change Goal: Patient-Specific Goal (Individualized) Outcome: Ongoing (Interventions Implemented as Appropriate) Flowsheets (Taken 01/06/2023 0123 by Jenn Villafana RN) Anxieties, Fears or Concerns: Pain control Goal: Absence of Hospital-Acquired Illness or Injury Outcome: Ongoing (Interventions Implemented as Appropriate) Goal: Optimal Comfort and Wellbeing Outcome: Ongoing (Interventions Implemented as Appropriate) Goal: Readiness for Transition of Care Outcome: Ongoing (Interventions Implemented as Appropriate) Problem: Fall Injury Risk Goal: Absence of Fall and Fall-Related Injury Outcome: Ongoing (Interventions Implemented as Appropriate) Problem: Pain Acute Goal: Acceptable Pain Control and Functional Ability Outcome: Ongoing (Interventions Implemented as Appropriate) * Plan of Care - Michael Wilkerson RN - 01/08/2023 4:11 AM EDT Problem: Adult Inpatient Plan of Care Goal: Plan of Care Review Outcome: Ongoing (Interventions Implemented as Appropriate) Goal: Patient-Specific Goal (Individualized) Outcome: Ongoing (Interventions Implemented as Appropriate) Goal: Absence of Hospital-Acquired Illness or Injury Outcome: Ongoing (Interventions Implemented as Appropriate) Goal: Optimal Comfort and Wellbeing Outcome: Ongoing (Interventions Implemented as Appropriate) Goal: Readiness for Transition of Care Outcome: Ongoing (Interventions Implemented as Appropriate) Problem: Fall Injury Risk Goal: Absence of Fall and Fall-Related Injury Outcome: Ongoing (Interventions Implemented as Appropriate) Problem: Pain Acute Goal: Acceptable Pain Control and Functional Ability Outcome: Ongoing (Interventions Implemented as Appropriate) The patient is A/O x4; VSS on RA. At the start of the shift at 1900H patient was not calling for pain medication, not screaming, and was calm, son and were at bedside. double lumen PICC one connected to ketamine drip of 0.5mg/hr and the other was SL. At 1930H patient has been pressing the call light for pain medication multiple times though she was told that it's not due just yet. At 2000H family still at bedside and they were watching movies; 0.8mg SQ dilaudid given along with her prn trazodone. At 2130 when family left she started screaming and crying help me help me! So painful, man I can't do this. Why is this so painful why is the pain not going away. Repeatedly so loud and have been pressing the call light non-stop every 5 minutes. Paged APS doctor about her concern and what's going on then at 2230 received a one time dose of 0.8mg IV dilaudid. Still patient kept screaming so loud that gag writer have to talk to her about being too loud and other patient have been botheredby the screaming even when the doors have been closed. At 2356H gave her 0.8mg SQ dilaudid, ibuprofen; tylenol, and atarax. After an hour she started screaming louder again saying she's in so much pain and have been pressing the call light multiple times for pain meds, repositioning; or food. Went to her room and talked to her if she could please stop screaming so loud as other patients are beingstartled with the scream and told her next pain medication can be given at 3am. She apologized and was quiet for a bit then started pressing the call light for food or repositioning few more times. She is a x1 PA with FWW using the bedside commode. All needs attended. Still for pain management; IV antibiotic, daily blood cultures. Will continue plan of care. At 0630H patient is sound asleep and snoring. Will continue to monitor. * Plan of Care - Blanco Siddiqi RN - 01/07/2023 4:16 PM EDT Images from the original note were not included. Problem: Adult Inpatient Plan of Care Goal: Plan of Care Review Outcome: Ongoing (Interventions Implemented as Appropriate) Goal: Patient-Specific Goal (Individualized) Outcome: Ongoing (Interventions Implemented as Appropriate) Goal: Absence of Hospital-Acquired Illness or Injury Outcome: Ongoing (Interventions Implemented as Appropriate) Goal: Optimal Comfort and Wellbeing Outcome: Ongoing (Interventions Implemented as Appropriate) Goal: Readiness for Transition of Care Outcome: Ongoing (Interventions Implemented as Appropriate) OUTCOME EVALUATION NOTE: OUTCOME SUMMARY: Pt A&OX4. Hypertensive sbp 160's max w/ 10/10 pain, otherwise VSS on RA. Pt c/o 8-10/10 pain, minimally controlled w/ Ketamine gtt, subcu prn Dilaudid, tylenol, lido, ice, and Advil. APS to bedside Ketamine gtt changed to 0.5mg w/ good effect. Diet remained npo for IR. Pt denied nausea. OUPA via bedside commode. BS normoactive x4. No flatus or bms this shift. Per pt average x2 bms per week at baseline. Pt c/o R foot numbness, otherwise neuro checks unremarkable. PLAN MOVING FORWARD: Pain control Ketamine gtt IR for aspiration Encourage oob INDIVIDUALIZED FALL PREVENTION INTERVENTIONS: High Fall Risk Patient-specific fall risk factors per assessment: [current deficits]: 2 or more active diagnoses, recent surgery, has an actively infusing IV line, uses an ambulatory aid, has generalized weakness (or impairment), tubes/drains, , pain, opioids for pain, is taking anti-histamines. Assistance [level of assistance required for transfers and ambulation]: 1XA w/ FWW Supervision [direct monitoring required during toileting and ADLs]: Hands on Surveillance [continuous indirect monitoring]:Hourly rounding, observation by staff, NKE at bedside. Assistive device, bed/chair alarm, family at bedside, commode at bedside, environmental modifications (reduce clutter, lighting adjusted for safety, IV tubing and cords are free from the floor), nonskid shoes/slippers when out of bed, sitter at bedside, bed in low position, upper position siderails raised x2 (x3), wheels locked, call light in reach, ID bands on, yellow falls ID band on Patient-specific fall prevention interventions for sensory deficits provided, if applicable: [X] N/A * Consult Note - Tiffany Villavicencio - 01/07/2023 1:48 PM EDT This Community Health Worker met with patient at the request of the OPAT RN's. CHW had a limited conversation with the patient as she was visibly in distress - crying and unable to stop moving reportedly because of the amount of pain she is in. Patient's and 8 year old son were also presentin the room. Patient did confirm that she has stable housing and is connected with the [facility] in [facility] for her methadone. CHW left contact information on her white board and will continue to follow for PWID OPAT needs and support with her substance misuse. Tiffany Villavicencio Fast [employer] Server * Care Management - Almaz Dong RN - 01/07/2023 12:32 PM EDT OFFICE OF CARE MANAGEMENT PROGRESS NOTE LOS: Hospital Day 4 days Chart reviewed, care reviewed with primary team and at interdisciplinary rounds. Patient continues to meet inpatient level of care related to: epidural abscess with MRSA bacteremia, pain control currently on Ketamine infusion. Decision Maker: Self Functional status prior to admission: Independent Home Environment: Others in the home: child(bjorn), adult. Current Living Arrangements: home/apartment/condo. Accessibility Concerns: N/A. Current Functional Ability: Independent DME used at home: none DME Needed at Discharge: No Patient is insured through: Primary Insurance: [place] Pay[place] / Plan: [place] PRIMARY CARE PL[place] / Product Type: *No Product type* / Secondary Insurance: N/A Last Physical Therapy Recommendation: with Last Occupational Therapy Recommendation: with Plan for discharge is: Home w/ Services Outpatient IV Medications - IV Access: PICC OPAT Orders: ID Consult Ordered Agency Referrals: Will monitor course for need/appropriateness of OPAT. Transportation: family or friend will provide Barriers to discharge: Discharge planning Plan going forward: Care Management will continue to follow and assist with discharge planning and coordination of care as indicated. Anticipated Date of Discharge: 01/11/2023 Almaz Dong RN, BSN Mechanical Service Specialist- Medicine Office of Care Management Office: [phone] Pager: [phone] * Plan of Care - Dat Alvarado RN - 01/07/2023 11:09 AM EDT Peripherally Inserted Central Catheter (PICC) Teaching Sheet Peripherally inserted central catheters ([id number]) (PICC) are used when you need IV (intravenous) medicines and fluids. A catheter is a small flexible plastic tube. The catheter is put in througha vein under your skin. A vein is a tube inside your body that carries blood from the body to the heart. The catheter is usually put into a vein on the inside of your upper arm. Then it is threaded up this vein and ends in the blood vessel near your heart. The PICC catheter may be used for taking blood for laboratory tests. You may also get IV fluids andmedicines quickly and easily. Having the catheter may keep your arm from being stuck many times with a needle. The catheter will have 1-3 small tails (tubes) coming from your arm where the catheter was put in. Why do I need a PICC line or midline catheter? PICC lines are used for longwall shearer operator treatments. PICC lines may be used for up to a year. They are often put in to give you IV medicines at home. You may need a PICC catheter because caregivers cannot use smaller veins in your body. Smaller veins may be damaged, or they may have poor blood flow. Catheters are also used in case of emergency when you would need medicines or fluids very quickly. The following are medicines and treatments you may get when you have a PICC line. ?? Antibiotics. These are medicines to prevent infection. ?? Frequent blood sample collection. ?? IV medicines that would make your smaller veins sore or damaged. ?? Receiving IV fluids for a long period of time. ?? Pain medicine. ?? Total Parenteral Nutrition: This is also called TPN. TPN is a special liquid food that goes directly into your veins. ?? Blood ?? Chemotherapy (Medicine for cancer) What are the benefits of having a PICC line put in? Having a PICC line may keep your arm from being stuck many times with a needle to draw blood or start an IV (intravenous catheter) . Through a PICC catheter, you may have blood taken for tests. You may also get IV fluids and medicines quickly and easily. Small veins can be damaged or irritated by certain drugs or nutritional solutions. A PICC line helps to decrease vein irritation from antibiotics, IV pain drugs, or IV cancer drugs. A PICC line can be left in place when you go home. If you go home with a PICC line in place, home care can be set up via the nurse Diecast Machine Operator to help you. What are possible complications of having a PICC line put in? Some possible complications are: bruising, swelling, or infection in the arm with the PICC line mal-positioned catheter (catheter tip in wrong place) occlusion (blocked catheter) mechanical phlebitis (vein irritation) and thrombosis (clot) Your doctor is the person you should talk to if you have questions about what would happen if you do not choose to have a PICC line put in. Your doctor can talk to you about other choices you may have. What should I expect when it is put in? A written consent that gives your ok to have it put in needs to be signed after you understand thatyou are going to have a PICC put in, and all your questions about the procedure have been answered to your satisfaction. This is a safety feature that the hospital practices before doing procedures. An experienced nurse who has been through special training and education will be putting this catheter in. The procedure is done in a specially equipped room in Interventional Radiology on the third floor. The PICC nurse will first talk to you about any questions that you may have. The PICC nurse will explain to you what is going to be done before starting. Once you arrive in the procedure room in Interventional Radiology, the PICC nurse will then set up for the procedure. She will unwrap the sterile kit and open the needed supplies. A gown and mask andgloves will be worn while putting it in. An ultrasound machine will be used to help guide the catheter in the right place. This machine uses a handle with sound waves to find the vein. The area on your arm where the catheter will be put in is then numbed with a medicine put under your skin with a tiny needle. The nurse will then put in the catheter using fluoroscopy (a type of x-ray) as a guide. Once the catheter is in your vein, it will be threaded up your arm to the area beforeyour heart. While it is being threaded, you may be asked to turn your head. When the catheter is in, the nurse will place a small dressing on the site along with a little donaldson which will help keep the catheter in place. After the procedure is done, a radiologist (doctor in x-ray department) will look at your x-ray to make sure that the end of the catheter is in proper position to give your fluids and/or medications. What should I expect in the care of my PICC? A dressing that is specially made to prevent infections will be put on. After this, the dressing will only be changed once a week unless it needs it sooner. If you go home with the catheter in, you may take a shower as long as you keep the site dry. You can do this by wearing a specially fitted PICC protector that will be provided to you before dischargefrom the hospital. The dressing at the site must be kept clean and dry. It is important that you watch for signs of infection at the site. Your healthcare provider should be notified if these occur: Redness Swelling Pus Pain at the site Other reasons to notify your healthcare provider are: Catheter becomes partially or totally removed Unable to infuse medication/fluid Unable to draw back blood from the catheter. This may be an early sign that a clot is forming on the end of the catheter. If this occurs, a medicine called Cathflo may be used to dissolve this clot. Ask the PICC nurse or your doctor, any questions you may have so you feel secure in consenting to having a PICC line. References: Vascular Access Device Selection, Insertion, and Management, Guided Interventions Access Systems 03/21. A Review of the Efficacy, Safety, Use, and Administration of Cathflo, [employer] 2005 * Plan of Care - Michael Wilkerson RN - 01/07/2023 4:23 AM EDT Problem: Adult Inpatient Plan of Care Goal: Plan of Care Review Outcome: Ongoing (Interventions Implemented as Appropriate) Goal: Patient-Specific Goal (Individualized) Outcome: Ongoing (Interventions Implemented as Appropriate) Goal: Absence of Hospital-Acquired Illness or Injury Outcome: Ongoing (Interventions Implemented as Appropriate) Goal: Optimal Comfort and Wellbeing Outcome: Ongoing (Interventions Implemented as Appropriate) Goal: Readiness for Transition of Care Outcome: Ongoing (Interventions Implemented as Appropriate) Problem: Fall Injury Risk Goal: Absence of Fall and Fall-Related Injury Outcome: Ongoing (Interventions Implemented as Appropriate) Problem: Pain Acute Goal: Acceptable Pain Control and Functional Ability Outcome: Ongoing (Interventions Implemented as Appropriate) The patient is A/O x4; VSS on RA; on ketamine drip for pain; 0.4mg-0.8mg dilaudid SQ every 4 hours.Patient have been asking PRN medications constantly and have been crying and screaming; pagealba ALEX and modified SQ dilaudid to PRN q3. Pt asked for something to help her sleep and received an order fortrazodone. Patient slept from [id number]; RN woke her up to give PO potassium to replenish 3.0 potassium from am labs. Patient couldn't even open her eyes completely and kept falling back asleep then after a few minutes she wanted to get up and urinate. Assisted her in using the commode and then when she got back in bed she have been screaming help me, help me gave her 0.8mg SQ. Then she kept on screaming, saying it's so painful. Wanda SWAIN MD was on a case and he will assess her once he's done with the case and will go from there. At 0340H BRYNN Adler assessed the patient; she keeps dozing off the conversation. Per we've already been giving her a high dose and she has been fallingback asleep then will wake up again screaming and wouldn't want to bump the ketamine up for concerns of respiratory distress. A one time dose of IV dilaudid 0.2mg ordered and was given to the patient. Patient still has been calling and screaming intermittently. She's kept NPO for IR today (TBT). OnIV vancomycin q8. Call light placed within reach; all needs attended. At 0618H increased the dose of ketamine drip to 0.5mg/hr from 0.3 per orders. Patient is sound asleep. Will continue plan of care. * Consult Note - Sites, Blanco Gurrola MD - 01/06/2023 9:53 AM EDT Acute Pain Medicine Consult Note We were asked to evaluate Ms. Lackey for severe acute pain in the setting of a currently non-surgical lumbar/sacral epidural infection. I have reviewed the MRI report. Patient is currently on the floor, NPO and in severe pain. She reports her pain as 10/10 and reports no relief from any medications. She reports radicular symptoms into her right hip and knee. Most of the pain is in the midline of the lumbar region. Pertinent Pain PMH: Of note, there is a paucity in information on her in EDH or externally 1. Elevated BMI 2. Polysubstance abuse, currently treated in [facility]. Does of Methadone unclear at this point 3. Toxicology screen positive for cocaine, fentanyl, and methadone. She reports multiple bags of fentanyl per day. 4. Chronic back pain Exam: Patient appears to be in distress from pain. Neurological exam is near impossible due to pain. She is moving both extremities. She can plantar flex and extend feet. She can weakly straight leg raise.She appears stronger on left then right. She says she can not knee extend because of pain. I would defer complete neurological exam to neurosurgery. Current Analgesic Medication: Hydromorphone Sliding Scale (2-6 mg PO) q 4 hours Methadone 40 mg PO BID Tizanidine 4 mg PO TID PRN Acetaminophen 975 mg PO QID Ketoralac 15 mg IV q 4 hours Assessment: Acute nociceptive and neuropathic pain due to epidural infection/abscess complicated by chronic back pain, OUD not in remission, chronic high dose opioid use, opioid tolerance, and likely opioid induced hyperalgesia. Plan: 1) Given the acute crisis, we should liberalize opioid PO sliding scale (orders placed) 2) Start Ketamine infusion for acute pain crisis. Please check QOD LFT's while on ketamine 3) Given neurological process and baseline Gabapentin use, will order Gabapentin. We can start at 300 TID (although she looks like she was on 600 TID). 4) Continue split dose of Methadone and confirm actual dose with clinic on Saturday 5) Schedule Tizanidine (done) 6) Lidocaine patches x 3 (goal to generate blood level for the anti-inflammatory effects- thus the location is not important 7) After 48 hours of Ketoralac, please convert to PO ibuprofen. Blanco Stokes MD [id number] * Consult Note - Rowena Lechuga MD - 01/05/2023 12:43 PM EDT Orthopaedic Surgery Consult Note Attending: Dr. Callaway We are seeing Mesfin Lackey at the request of Eyal Robbins MD. Paged: 12:40PM Evaluated: 1:20PM Chief Complaint: R knee pain History of Present Illness: Mesfin Lackey is a 32 y.o. female with hx IVDU, BMI 45 who presents with MRSA bacteremia, L4-S1 discitis/osteo + epidural abscess c/o atraumatic R knee pain. AFVSS. ESR>119, CRP 225, denies systemic sx. Some R hip noted but patient states this has been stable for 3 days, Blood cx +GPCs, MRSA Abx- was on vanc/rocefin- now just vanc- been on abx for >24 hrs. Past Medical History: Patient Active Problem List Diagnosis Code CIS - Cervicalgia 723.1 CIS - Entered not Verified CIS - Lumbar Spine Pain 724.2 Epidural abscess G06.2 Past Surgical History: No past surgical history on file. No Known Allergies No current facility-administered medications on file prior to encounter. Current Outpatient Medications on File Prior to Encounter Medication Sig Dispense Refill gabapentin (Neurontin) 300 mg capsule Take 600 mg by mouth 3 times daily. nicotine polacrilex (Nicorette) 4 mg gum Take 4 mg by mouth as needed. ibuprofen (Advil) 800 mg tablet Take 800 mg by mouth every 6 hours as needed for Pain. melatonin 5 mg tablet Take 15 mg by mouth nightly as needed. methadone HCl (METHADONE ORAL) Take by mouth. Family History: Negative for bleeding/clotting disorders or anesthetic complications. Social History: Social History Occupational History Not on file Tobacco Use Smoking status: Every Day Types: Cigarettes Smokeless tobacco: Not on file Substance and Sexual Activity Alcohol use: Not on file Drug use: Yes Types: IV, Cocaine Sexual activity: Not on file Review of Systems: As per HPI, otherwise negative Objective: Temp: [36.7 ??C (98.1 ??F)-37.6 ??C (99.7 ??F)] Heart Rate: [82-87] Resp: [18-22] BP: (129-173)/(84-103) SpO2: [90 %-97 %] Heart Rate from SpO2: [59 bpm-91 bpm] Gen: Resting comfortably in NAD, AOx3, answering questions appropriately. HEENT: NC, AT. CV: Regular rate. No murmurs, rubs, or gallops. Pulm: Normal respiratory effort on room air. Skin: Intact Psych: Normal mood and pleasant affect. Right Upper Extremity Exam: No ecchymosis, erythema, or overlying skin changes No effusion in shoulder / elbow / wrist No TTP clavicle, shoulder, humerus, elbow, forearm, wrist, hand Painless range of motion of shoulder / elbow / wrist / fingers Sensation intact to light touch in Ax/M/R/U/LABC distributions Motor intact shoulder abduction, elbow flexion/extension, wrist flexion/extension, fish inspector, EPL, AIN, IO Brisk capillary refill distally 2+ radial pulse Left Upper Extremity Exam: Small area ecchymosis L lateral midshaft humerus iso AC injections No effusion in shoulder / elbow / wrist No TTP clavicle, shoulder, humerus, elbow, forearm, wrist, hand Painless range of motion of shoulder / elbow / wrist / fingers Sensation intact to light touch in Ax/M/R/U/LABC distributions Motor intact shoulder abduction, elbow flexion/extension, wrist flexion/extension, fish inspector, EPL, AIN, IO Brisk capillary refill distally 2+ radial pulse Right Lower Extremity Exam: No ecchymosis, erythema, or overlying skin changes Mild diffuse swelling RLE No effusion in knee / ankle No TTP pelvis, hip, femur, knee, tib/fib, ankle, foot Painless range of motion of Hip / knee / ankle Sensation intact to light touch in Saphenous/Sural/LFC/Femoral/MP/LP/T/DP/SP distributions Motor intact hip flexion/extension, knee flexion/extension, ankle flexion/extension, EHL/FHL/TA-butwith some hesitation to plantarflexion iso back pain Brisk capillary refill distally 2+ DP/PT pulses Left Lower Extremity Exam: No ecchymosis, erythema, or overlying skin changes No effusion in knee / ankle No TTP pelvis, hip, femur, knee, tib/fib, ankle, foot Painless range of motion of Hip / knee / ankle Sensation intact to light touch in Saphenous/Sural/LFC/Femoral/MP/LP/T/DP/SP distributions Motor intact hip flexion/extension, knee flexion/extension, ankle flexion/extension, EHL/FHL/TA- but with some hesitation to plantarflexion iso back pain Brisk capillary refill distally 2+ DP/PT pulses Labs: Last wbc, hgb, hct plt Recent Labs 01/06/23 0648 WBC 6.5 HGB 10.4* HCT 32.7* Last CRP, SEDRATE Recent Labs 01/05/23 1420 CRP 225.4* SEDRATE >119* Imaging: XR R Knee 01/05/23: No osseous abnormality, no effusion. Procedures: Joint aspiration After a discussion pertaining to the risks and benefits of joint aspiration, the patient agreed to proceed. A superolateral approach to the R Knee was used to insert an 27 gauge needle. Approximately 0 fluid was aspirated with no sent for cell count, gram stain, crystals, and aerobic/anaerobic cultures. The area was dressed with gauze and hemostasis was achieved. The patient tolerated the procedure well. Assessment/Plan: 32 y.o. female who presents with R knee pain iso MRSA bactermeia, infectious osteo/discitis with concern for septic arthritis. Given history, exam, and elevation of inflammatory markers, patient was aspirated with minimal fluid- insufficient to send for data. Difficult to isolate Rhip and knee exams from excruciating LBP. Low clinical suspicion for septic arthritis, but will ctmiso insufficient aspiration fluid. * Plan of Care - Royer Esteban RN - 01/05/2023 11:20 AM EDT OUTCOME EVALUATION NOTE: OUTCOME SUMMARY: Pt A&Ox4, sleepy but waking up Pt. Moaning in pain saying pain is a 10/10 Denies SOB/CP/ N&V Blood Cultures positive, more drawn this AM by vascular Dilaudid, tylenol and toradol to manage pain Will contact MD with any change New IV placed per order for patency of IV abx and per pharmacy to not run medications together. PLAN MOVING FORWARD: Security check for all visitors Pain management Surgery vs drain? Restart methadone? INDIVIDUALIZED FALL PREVENTION INTERVENTIONS: Patient-specific fall risk factors per assessment: [current deficits]: hospital environment, lines/devices, tethering lines, illness Assistance [level of assistance required for transfers and ambulation]: SBA Supervision [direct monitoring required during toileting and ADLs]: eyes on- hands on Surveillance [continuous indirect monitoring]: rings appropriately, hourly rounding Patient-specific fall prevention interventions for sensory deficits provided, if applicable: [X] No * Plan of Care - Sal-Svetlana Menard RN - 01/05/2023 6:08 AM EDT OUTCOME EVALUATION NOTE: OUTCOME SUMMARY: Pt lethargic but oriented x4. Pt tolerated MRI lumber spine at the beginning of the shift. DBP elevated most of the shift. MD notified. Pain is very hard to control. PRN IV Dilaudid given every 4 hours with minimal effects. Pt constantly requested pain medication. Additional 0.6 mg of IV Dilaudid was given at 0400 and clonidine given at 0530 with an effect. Will continue monitoring. Call amin within reach. PLAN MOVING FORWARD: Pain management IV antibiotics Maintain safety Security check for all visitors INDIVIDUALIZED FALL PREVENTION INTERVENTIONS: Patient-specific fall risk factors per assessment: [current deficits]: lines and tubes, pain, medication, generalized weakness Assistance [level of assistance required for transfers and ambulation]: 1-2 x assist when in pain Supervision [direct monitoring required during toileting and ADLs]: hands on Surveillance [continuous indirect monitoring]: call amin within reach, bed alarm, purposeful rounding, monitor Patient-specific fall prevention interventions for sensory deficits provided, if applicable: [X] N/A CARE PLAN GOAL OUTCOME EVALUATION: Problem: Adult Inpatient Plan of Care Goal: Plan of Care Review Outcome: Ongoing (Interventions Implemented as Appropriate) Goal: Patient-Specific Goal (Individualized) Outcome: Ongoing (Interventions Implemented as Appropriate) Goal: Absence of Hospital-Acquired Illness or Injury Outcome: Ongoing (Interventions Implemented as Appropriate) Goal: Optimal Comfort and Wellbeing Outcome: Ongoing (Interventions Implemented as Appropriate) Goal: Readiness for Transition of Care Outcome: Ongoing (Interventions Implemented as Appropriate) Problem: Fall Injury Risk Goal: Absence of Fall and Fall-Related Injury Outcome: Ongoing (Interventions Implemented as Appropriate) Problem: Pain Acute Goal: Acceptable Pain Control and Functional Ability Outcome: Ongoing (Interventions Implemented as Appropriate) * Consult Note - Leeanna Berger [facility] - 01/04/2023 9:19 PM EDT TelePharmacy Home Medication List Update for Medication Reconciliation 01/04/23 9:19 PM Mesfin Lackey 1990 No Known Allergies Person Interviewed: patient Quality of Interview/accuracy of medication list: good Sources used to compile medication list: [x] Epic medication list [x] SureScripts [] PCP/Specialist list [] Retail pharmacy [x] Patient list [] MAR [] Other Changes made to home medication list: Additions: Gabapentin 600 mg po tid Ibuprofen 800 mg po q6h prn Melatonin 15 mg po qhs prn Methadone Nicotine gum 4 mg prn Deletions: None Changes: None Additional Notes: Unable to verify methadone dose, 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 [facility] opens 0600. Closest clinic to pt's address is [facility]- [phone]. Recommended changes: Pt may require home gabapentin regimen while inpt. The home medication list is now updated to the best of my knowledge and is ready to be reconciled by the provider. Please contact the TelePharmacy Medication Reconciliation Pharmacist at for any questions. Leeanna Berger RPH * Initial Assessments - Rashad Scales MSW - 01/04/2023 4:21 PM EDT Office of Care Management Initial Assessment MATTHEW yBrnes reviewed record and discussed patient with Care Team. Source of Information: Team, bedside nurse, medical record, and Patient Introduced self/reviewed role; services accepted. Admitted From: Transfer from another hospital Location: [facility] Reason for Hospitalization: my back is hurting Covid Vaccination Status: 1st & 2nd dose Last COVID test: Past medical History: No past medical history on file. Hospitalizations Within the Past 30 Days: no previous admission in last 30 days Current Decision-Making Capacity: Self If AD's have not been completed the following surrogate would be surrogate decision maker per [place] decision making law. (Only good for 180 days) Any patient receiving care in [place] must abide by [place] law. The hierarchy for surrogate decision making is: (a) Patient???s spouse or civil union partner unless there is a divorce proceeding, separation agreement, or restraining order limiting that person???s relationship with the patient. (b) Any adult son or daughter of the patient. (c) Either parent of the patient. (d) Any adult brother or sister of the patient. (e) Any adult grandchild of the patient. (f) Any grandparent of the patient. (g) Any adult aunt, uncle, niece, or nephew of the patient. (h) A close friend of the patient. (i) The agent with financial power of facing baster or a conservator appointed in accordance with RSA 464-A. (j) The guardian of the patient???s estate. Advance Care Planning: Attempt Cardiopulmonary Resuscitation - Inpatient <no information> -Advanced Directive: Other (Not at this time) Current Coping/Education/Information Needs: Patient sees PCP; SW will provide resources on substance/ETOH rehabilitation Current Functional Ability: Independent Functional Status Prior to Admission: Independent Home Environment: Others in the home: child(bjorn), adult. Current Living Arrangements: home/apartment/condo. Accessibility Concerns:N/A. Resource / Environmental Concerns: Resource/Environmental Concerns: unable to assess Current DME: none Home Address confirmed as: [address] [id number] Social & Family Supports: All names listed below confirmed with patient as current and correct Extended Emergency Contact Information Primary Emergency Contact: Angle Lackey Relation: Dep Child Secondary Emergency Contact: Isaias Lackey Relation: Dep Child Current Care Provided by: self Provides Primary Care For: child(bjorn) Caregiver if needed: none Quality of Family relationships: supportive Community Resources being provided currently: outpatient substance abuse treatment, other (see comments) (Methadone tx) Behavioral Health History: None specified Substance Use/Abuse listed: Social History Tobacco Use Smoking Status Every Day Types: Cigarettes Smokeless Tobacco Not on file 0 No problems reported 1-2 Low level 3-5 Moderate level 6-8 Substantial level 9- 10 Severe level 0 to 7 points: Low risk 8 to 15 points: Medium risk 16 to 19 points: High risk 20 to 40 points: Addiction likely Other Pertinent/Service Specific Information: Health/Prescription Coverage: Primary Insurance: [place] Payor: [place] / Plan: [place] PRIMARY CARE PLUS / Product Type: *No Product type* / Secondary Insurance: N/A ; Prescription Coverage: Yes Preferred Pharmacy: No Pharmacies Listed Status: Patient is a : No Primary Care Provider confirmed: Tiffany Houser MD [phone] Patient/Caregiver Goals of Treatment: Substance abuse/ETOH rehab/recovery resources will be provided Potential Needs for Transition of Care: substance abuse services, other (see comments) (Patient additional needs TBD closer to d/c) Agency Referrals: Not Applicable Transportation: no concerns Transportation Anticipated: family or friend will provide Concerns to be Addressed: Suboxone / Methadone management, substance/tobacco abuse/use, mental health Assessment: Patient is admitted for back pain, epidural abscess Plan: TBD for d/c A member of the Care Management team will continue to monitor progress, follow for continuity of care and assist with transition of care planning. * Consult Note - Wen Gunn DO - 01/04/2023 11:49 AM EDT Infectious Disease Reason for consult: Lumbar epidural abscess Requesting: Fab Cross MD History of Present Illness: 32 year-old female with a PMH of IVDU on methadone was transferred to from [facility] with findings of epidural abscess on imaging. She initially presented with acute onset low back and RLE pain found on MRI to have evidence of L4-S1 discitis/osteomyelitis associated with epidural abscess. The patient reports her symptoms started abruptly on Saturday when she developed acute onset lowerback pain with radiation down her right leg. She denies fevers or chills. She did not have bowel orbladder dysfunction and denied numbness or tingling including in the saddle region. When pain progressed she presented to [facility]. She had blood cultures drawn there at 5PM last night which now show GPCs in clusters on gram stain. She was started on vancomycin and ceftriaxone and transferred to dueto imaging findings. She has been evaluated by neurosurgery and was not found to have an urgent indication for surgery. Today she continues to have severe back pain but is able to move in bed and participate in the exam. She reports last injecting fentanyl on Saturday in her left arm. She has an area of induration and erythema which she states was due to a bug bite. She has excoriations on her back where she wears her bra and attributes these to allergy to dryer sheet she used. She has poor dentition but denies any recent infections, she also denies recent skin infections although she had had abscesses in the past. She does not have any hardware or devices. The patient denies chest pain, shortness of breath, cough, palpitations, and syncopal episodes. There is no nausea, diarrhea or abdominal pain. No headaches, vision changes, weakness or new neurologic symptoms. 10-point ROS: negative other than that stated in HPI. Other Medical and Surgical History: Medications: reviewed Allergies/SE to antibiotics: none Family History: negative for recurrent infections or immunocompromised conditions Social History: active smoker, current fentanyl use last on 01/02 Objective: BP 133/76 (BP Location (NBP): Left arm, Patient Position: Lying) Pulse 86 Temp 36.3 ??C (97.3 ??F) (Oral) Resp 20 Ht 177.8 cm (5' 10) Wt (!) 142.3 kg (313 lb 11.4 oz) SpO2 96% BMI 45.01 kg/m?? General: distress due to pain HEENT: poor dentition, several missing teeth, oropharynx without exudates or erythema, neck supple CV: regular rate and rhythm, no obvious murmurs Resp: clear to auscultation bilaterally; no wheezing, crackles, or rhonchi Abd: soft, non-distended, non-tender on palpation Ext: warm and well-perfused, no lower extremity edema, right leg move restricted due to pain but strength 5/5 Skin: track melendez along both arms, left arm has a small lesion with induration and erythema, no streaking, excoriations on back b/l Neuro: alert and oriented, able to follow commands, moves extremities spontaneously Pertinent labs, microbiology, imaging and procedures were reviewed. Labs: 01/04 WBC 10.1 Hb 12.1 Plt 152 Cr 0.67 LFTs WNL 01/03 ESR 82 CRP 190 Micro: 01/03 blood cultures - in process OSH micro: 01/03 blood cultures x 2 - gram stain with GPCs in clusters EKG/Echo - reviewed Imaging - reviewed 01/03 MRI spine (2nd read 01/04) - Septic right L4-5 facet joint, with associated epidural phlegmon and abscess that contributes to severe canal stenosis at L4-5. No evidence of discitis/osteomyelitis.Paraspinous inflammatory changes without abscess. 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 She initially presented with acute onset low back and RLE pain found on MRI to have evidence of L4-S1 discitis/osteomyelitis associated with epidural abscess. Blood cultures at OSH are now growing GPCs in clusters. She was started on vancomycin and ceftriaxone. She has been evaluated by neurosurgery and was not found to have an urgent indication for surgery. The patient has bacteremia which has led to epidural abscess and osteomyelitis. The likely culprit may be S.aureus but we are still awaiting cultures. At this time we recommend cont inuing both ceftriaxone and vancomycin. Over the coming days we will continue to monitor closely, if there is persistent bacteremia or progression of symptoms she should be reimaged and reevaluated to see if there is need for surgical intervention. She will need at least 6 weeks of antibiotics. Recommendations: -Please continue vancomycin, pharmacy guided dosing (AUC 400-600) -Continue ceftriaxone 2g IV daily -Follow blood cultures, repeat daily until clearance of bacteremia established for 48 hrs -Obtain TTE -Monitor left arm lesion, if becomes larger or fluctuant consider US -Check at least weekly CBC and CMP to assess for antibiotic mediated toxicities Recommendations shared with primary team. Thank you for this consult, we will follow with you. Please call with questions, pager [phone]. Discussed with attending, Dr. Velia Brady MD Infectious Disease Fellow 01/04/23 I have seen the patient and reviewed the above history and physical and I agree with the details aswritten. The assessment and plan were formulated in discussion with me and I agree with them as documented. 32F with IVDU presenting with acute onset back pain radiating to RLE. MRI with L4/5 facet joint sepsis and epidural abscess. Blood cultures now with GPCs in clusters. Patient does not have any loss of motor or sensory function at this time. She does not have stigmata of endocarditis but given the bacteremia and spinal infection would recommend TTE. She does not have any other back to warrant further imagine but would monitor closely for any new or worsening symptoms. She does have a lesion on her left upper inner arm that looks scabbed and erythematous and may have been the source of infection. Additionally, she has numerous skin abrasions and excoriations on her back. For now, would continu e Vancomycin and Ceftriaxone while awaiting further cultures data and workup. Wen Gunn DO, MPH Infectious Disease * Plan of Care - Royer Esteban RN - 01/04/2023 9:52 AM EDT Images from the original note were not included. OUTCOME EVALUATION NOTE: OUTCOME SUMMARY: Pt A&Ox4, sleepy but waking up Pt. Moaning in pain saying pain is a 10/10 Denies SOB/CP/ N&T Labs sent per orders Blood Cultures positive Dilaudid, tylenol and toradol to manage pain Will contact MD with any changes New IV placed per order for patency of IV abx and per pharmacy to not run medications together. PLAN MOVING FORWARD: Security check for all visitors Pain management INDIVIDUALIZED FALL PREVENTION INTERVENTIONS: Patient-specific fall risk factors per assessment: [current deficits]: hospital environment, lines/devices, tethering lines, illness Assistance [level of assistance required for transfers and ambulation]: SBA Supervision [direct monitoring required during toileting and ADLs]: eyes on- hands on Surveillance [continuous indirect monitoring]: rings appropriately, hourly rounding Patient-specific fall prevention interventions for sensory deficits provided, if applicable: [X] No * Plan of Care - Sherly Wasserman RN - 01/04/2023 2:35 AM EDT OUTCOME EVALUATION NOTE: OUTCOME SUMMARY: Arrived from ED around 0000 A+Ox4, sleepy and drifting off during conversations Pt. Moaning in pain saying pain is a 10/10 Denies SOB/CP/ N&T Labs sent per orders Dilaudid, tylenol and toradol to manage pain Will contact MD with any changes 0230-MD messaged. No medications on PRN list for pain management other than dilaudid. MD ordered tylenol/toradol. 0600- paged. Pt. Desatting to 80's below 92% continuously. Denying shortness of breath. 2L NC placed on pt and pt satting 93%. IV abx given per new orders. Rocephin and vancomycin. New IV placed per order for patency of IV abx and per pharmacy to not run medications together. PLAN MOVING FORWARD: IR drain placement in AM Pain management INDIVIDUALIZED FALL PREVENTION INTERVENTIONS: Patient-specific fall risk factors per assessment: [current deficits]: hospital environment, lines/devices, tethering lines, illness Assistance [level of assistance required for transfers and ambulation]: SBA Supervision [direct monitoring required during toileting and ADLs]: eyes on- hands on Surveillance [continuous indirect monitoring]: rings appropriately, hourly rounding Patient-specific fall prevention interventions for sensory deficits provided, if applicable: [X] No CARE PLAN GOAL OUTCOME EVALUATION: Problem: Adult Inpatient Plan of Care Goal: Plan of Care Review Outcome: Ongoing (Interventions Implemented as Appropriate) Goal: Patient-Specific Goal (Individualized) Outcome: Ongoing (Interventions Implemented as Appropriate) Goal: Absence of Hospital-Acquired Illness or Injury Outcome: Ongoing (Interventions Implemented as Appropriate) Goal: Optimal Comfort and Wellbeing Outcome: Ongoing (Interventions Implemented as Appropriate) Goal: Readiness for Transition of Care Outcome: Ongoing (Interventions Implemented as Appropriate) * Consult Note - Markos Arboleda MD - 01/03/2023 11:46 PM EDT [facility] Consult Date: 01/03/2023 ID: Mesfin Lackey, 32 y.o. female : 1990 Admission Date: 01/03/2023 PCP: Tiffany Houser MD Consult information: Date & Time: 01/03/2023 11:46 PM Referring Service: ED Consulting Attending: Fab Cross MD Neurosurgery Attending: Markos Arboleda MD Place of Consult: [facility] ED CC/Reason for consult: disc-osteo, epidural abscess History of Present Illness: Mesfin Lackey is a 32 y.o. female not on APAC with a PMHx significant for IVDU on methadone presenting in transfer from outside hospital for acute onset low back and RLE pain found on MRI to have evidence of L4-S1 discitis/osteomyelitis associated with epidural abscess. Mesfin is seen in the ED this evening and presents unaccompanied. She tells me that she was in her usual state of health until approximately 36 hours ago when she had relatively acute onset of severe low back pain which radiated down the anterior and lateral aspect of her R thigh to the knee. This became progressively more severe and eventually this morning, she called for EMS transport to [facility]. She denies any fevers or chills and has had no recent infectious symptoms. She has been able to ambulate some despite the pain but prefers not to and appears very uncomfortable in bed. She has not had any bowel or bladder dysfunction. Denies any numbness or tingling including in the saddle region.Was given dose of CTX and Vanc at OSH. She has chronically poor dentition with few functioning teeth, but has not had a dental abscess in some time and her teeth are not painful. Mesfin does admit to current IV fentanyl use most recently on Saturday afternoon, but is in a methadone program. She is a daily smoker, 3-5 cigarettes per day. Past Medical History: No past medical history on file. Patient Active Problem List Diagnosis Code CIS - Cervicalgia 723.1 CIS - Entered not Verified CIS - Lumbar Spine Pain 724.2 Epidural abscess G06.2 Past Surgical History: No past surgical history on file. Medications: No current facility-administered medications on file prior to encounter. No current outpatient medications on file prior to encounter. Scheduled Meds: sodium chloride 0.9 % (flush) 5 mL Intravenous BID [START ON 01/04/2023] enoxaparin 40 mg Subcutaneous Nightly Continuous Infusions: PRN Meds: sodium chloride 0.9 % (flush), lidocaine, HYDROmorphone OR HYDROmorphone OR HYDROmorphone Allergies: No Known Allergies Social History: Social History Socioeconomic History Marital status: Single Spouse name: Not on file Number of children: Not on file Years of education: Not on file Highest education level: Not on file Occupational History Not on file Tobacco Use Smoking status: Not on file Smokeless tobacco: Not on file Substance and Sexual Activity Alcohol use: Not on file Drug use: Not on file Sexual activity: Not on file Other Topics Concern Not on file Social History Narrative Not on file Social Determinants of Health Financial Resource Strain: Not on file Food Insecurity: Not on file Transportation Needs: Not on file Physical Activity: Not on file Housing Stability: Not on file Family History: No family history on file. Review of Systems: Please see HPI for pertinent details. 12 point ROS is otherwise negative. Vital Signs: Visit Vitals BP 138/86 Pulse 84 Temp 37.2 ??C (98.9 ??F) (Oral) Resp 16 Ht 177.8 cm (5' 10) Wt 127 kg (280 lb) SpO2 98% BMI 40.18 kg/m?? Physical Exam: General: Overweight female appearing older than stated age. Whimpering, crying in bed, appears uncomfortable. HEENT: Atraumatic, normocephalic. Very poor dentition. Cardiovascular: Regular rate and rhythm. Respiratory: Normal inspiratory effort on RA. Spine: Diffuse lower lumbar tenderness to palpation. No step-offs. Genitourinary: Deferred Extremities: WWP, track melendez visible. Neurological: Mental Status/Cognitive: GCS 15 (Motor 6 - Follows commands; Verbal 5 - Fluent; Eyes 4 - Eyes open spontaneously) Awake, alert, oriented x 3. Speech: Fluent, appropriate. Naming and repetition intact. Cranial Nerves: PERRL CN II: Visual acuity and crockett grossly intact. CN III, IV, : EOMI. CN V: Sensation intact in V1, 2 and 3 distributions. CN VII: No facial asymmetry/droop. CN VIII: Intact hearing bilaterally to voice. CN IX, X: Palate and uvula rise in the midline. CN XI: Trapezius strength 5/5 bilaterally. CN XII: Tongue protrudes in the midline direction. Motor: No upper extremity drift. *Pain limited on exam. Segment Muscle Action Right Left C5 Deltoid Shoulder Abduction 5 5 C6 Biceps Elbow flexion 5 5 C6 Extensor carpi radialis Wrist extension 5 5 C7 Triceps Elbow extension 5 5 C8 Finger flexors Grasp 5 5 T1 Interossei Finger abduction 5 5 L2 Iliopsoas Hip flexion 4+* 4+* L3 Quadriceps Knee extension 4+* 5 L4 Tibialis anterior Dorsiflexion 5 5 L5 Extensor hallucis longus Great toe extension 5 5 S1 Gastrocnemius Plantar flexion 5 5 Reflexes: No hyperreflexia Driscoll's: none Clonus: none Rectal exam / External Anal Sphincter: Passive Tone: Intact. Active squeeze: Intact. Gait: Not assessed Sensation: Intact in C5-T1 dermatomes in bilateral upper extremities. Intact in L2-S1 dermatomes in bilateral lower extremities. No saddle anesthesia. Labs: Recent Labs 01/03/23 2313 WBC 10.1* HGB 12.1 PLATELET 152 No results for input(s): NA, K, CL, CO2, BUN, CREATININE, GLUCOSE in the last 72 hours. No results for input(s): PT, INR in the last 72 hours. No results for input(s): AST, ALT, BILITOT, ALKPHOS, ALB, PROT, LIPASE, AMYLASE in the last 72 hours. Imaging: MRI lumbar spine wwo: R L4-5 septic facet joint with enhancement extending into the adjacent posterior paravertebral musculature discogenic edema and enhancement at L4-5 and L5-S1. No endplate marrow edema or enhancement.Diffuse circumferential epidural abscess from L3-S1, thickest at L4-5 level contributing to severe canal stenosis with crowding of the cauda equina. Lumbar vertebral body heights are maintained. No cord compression. No abnormal cord signal. Conus terminates at L1. Imaging independently reviewed. Assessment: Mesfin Lackey is a 32 y.o. female with a PMHx significant for IVDU on methadone presenting in transfer from outside hospital for acute onset low back and RLE pain found on MRI to have evidence of L4-S1 discitis/osteomyelitis associated with epidural abscess. Exam is reassuring at this time with no clear neurologic deficits with exception of mild pain limited weakness proximally in RLE>LLE. Patient has been afebrile and HDS with WBC 10.1, CRP 190. MRI with above findings including evidence of L4-S1 discitis/osteomyelitis as well as circumferential epidural abscess visible from L3-S1. At this time there is no urgent indication for surgical interventi on, but we will be following along closely for any changes. Please keep NPO for now out of abundance of caution. Patient ultimately needs Medicine evaluation and admission for infectious workup and antibiotic management. Problem List: Discitis/osteomyelitis Epidural abscess Plan/Recommendations: -No acute neurosurgical intervention indicated urgently -Admission to Hospital Medicine for infectious workup and antibiotic management -Q4H neuro checks -DVT ppx with SCDs, hold antiplatelets/anticoagulants -Keep NPO for now -Obtain PVR -Rest per primary team Today's plan of care was discussed with attending neurosurgeon, Markos Arboleda MD. Gris Garcia MD 01/03/2023 11:46 PM [facility] Neurosurgery Inpatient Pager: [phone] Personal Pager: [phone] Attending Attestation and Certification Please see Gris Garcia MD's note for details of the patient history of presentation and data. I have discussed, reviewed and agree with the documented History, Physical findings, Assessment and Plan of care. I have examined the patient myself and personally reviewed all studies. In addition, I certify thatI am a [facility] credentialed attending provider with admitting privileges and that the patient meets or has met medical necessity to require an inpatient IPI level of care meeting a minimum of two midnights or is on the [facility] inpatient only procedure list (status C) due to: acute injury, physiologic or anatomic insult requiring close monitoring; IV fluid resuscitaiton and/or IV medication; lab/imaging evaluation and has potential for urgent operative intervention. Agree with aggressive abx treatment as pt currently neuro intact and infection appears largely thinlayer in epidural space (no large abscess). Hopefully abx can alleviate need for surgery. Will follow Active Hospital Problems Diagnosis Epidural abscess Resolved Hospital Problems No resolved problems to display. Active Non-Hospital Problems Diagnosis CIS - Entered not Verified CIS - Cervicalgia 723.1 CIS - Lumbar Spine Pain 724.2 documented in this encounter Plan of Treatment Scheduled Orders Name Type Priority Associated Diagnoses Orde r Schedule EKG 12 Lead ECG Routine QT prolongation One Time for 1 Occurrences starting 01/15/2023 until 01/15/2023 Scheduled Referrals Name Type Priority Associated Diagnoses Orde r Schedule OPAT: Order / Recommendation for Post Discharge IV Antibiotic Management Outpatient Referral Routine Epidural abscess QT prolongation Bacteremia MRSA (methicillin resistant Staphylococcus aureus) Staphylococcal arthritis of right knee Ordered: 01/16/2023 documented as of this encounter Procedures Procedure Name Priority Date/Time Associated Diagnosis Comments HC C-REACTIVE PROTEIN Routine 01/17/2023 2:15 AM EDT HEMOGRAM Routine 01/17/2023 2:15 AM EDT DIFFERENTIAL, AUTOMATED Routine 01/17/2023 2:15 AM EDT HC CBC,PLT & AUTO DIFF Routine 01/17/2023 2:15 AM EDT HC PHOSPHORUS, SERUM Routine 01/17/2023 2:15 AM EDT HC MAGNESIUM, SERUM Routine 01/17/2023 2 :15 AM EDT BASIC METABOLIC PANEL (NON-FASTING) Routine 01/17/2023 2:15 AM EDT HC CREATINE PHOSPHOKINASE, SERUM Routine 01/16/2023 3:35 PM EDT XR PICC PLACEMENT OVER 5 YEARS (IV TEAM) Routine 01/16/2023 3:05 PM EDT DH VAS PICC REWIRE Routine 01/16/2023 3: 05 PM EDT HC C-REACTIVE PROTEIN Routine 01/16/2023 2:25 AM EDT HEMOGRAM Routine 01/16/2023 2:25 AM EDT DIFFERENTIAL, AUTOMATED Routine 01/16/2023 2:25 AM EDT HC CBC,PLT & AUTO DIFF Routine 01/16/2023 2:25 AM EDT HC PHOSPHORUS, SERUM Routine 01/16/2023 2:25 AM EDT HC MAGNESIUM, SERUM Routine 01/16/2023 2 :25 AM EDT BASIC METABOLIC PANEL (NON-FASTING) Routine 01/16/2023 2:25 AM EDT HC C-REACTIVE PROTEIN Routine 01/15/2023 3:00 AM EDT HEMOGRAM Routine 01/15/2023 3:00 AM EDT DIFFERENTIAL, AUTOMATED Routine 01/15/2023 3:00 AM EDT HC CBC,PLT & AUTO DIFF Routine 01/15/2023 3:00 AM EDT HC PHOSPHORUS, SERUM Routine 01/15/2023 3:00 AM EDT HC MAGNESIUM, SERUM Routine 01/15/2023 3 :00 AM EDT BASIC METABOLIC PANEL (NON-FASTING) Routine 01/15/2023 3:00 AM EDT HC VANCOMYCIN Timed 01/14/2023 3:05 PM EDT HC C-REACTIVE PROTEIN Routine 01/14/2023 12:29 AM EDT HEMOGRAM Routine 01/14/2023 12:29 AM EDT DIFFERENTIAL, AUTOMATED Routine 01/14/2023 12:29 AM EDT HC CBC,PLT & AUTO DIFF Routine 01/14/2023 12:29 AM EDT HC PHOSPHORUS, SERUM Routine 01/14/2023 12:29 AM EDT HC MAGNESIUM, SERUM Routine 01/14/2023 1 2:29 AM EDT BASIC METABOLIC PANEL (NON-FASTING) Routine 01/14/2023 12:29 AM EDT EKG 12-LEAD Routine 01/13/2023 9:24 AM EDT QT prolongation HC C-REACTIVE PROTEIN Routine 01/13/2023 4:15 AM EDT HEMOGRAM Routine 01/13/2023 4:15 AM EDT DIFFERENTIAL, AUTOMATED Routine 01/13/2023 4:15 AM EDT HC CBC,PLT & AUTO DIFF Routine 01/13/2023 4:15 AM EDT HC PHOSPHORUS, SERUM Routine 01/13/2023 4:15 AM EDT HC MAGNESIUM, SERUM Routine 01/13/2023 4 :15 AM EDT BASIC METABOLIC PANEL (NON-FASTING) Routine 01/13/2023 4:15 AM EDT EKG 12-LEAD Routine 01/12/2023 1:59 PM EDT QT prolongation HC C-REACTIVE PROTEIN Routine 01/12/2023 12:45 AM EDT HEMOGRAM Routine 01/12/2023 12:45 AM EDT DIFFERENTIAL, AUTOMATED Routine 01/12/2023 12:45 AM EDT HC CBC,PLT & AUTO DIFF Routine 01/12/2023 12:45 AM EDT HC PHOSPHORUS, SERUM Routine 01/12/2023 12:45 AM EDT HC MAGNESIUM, SERUM Routine 01/12/2023 1 2:45 AM EDT BASIC METABOLIC PANEL (NON-FASTING) Routine 01/12/2023 12:45 AM EDT HC C-REACTIVE PROTEIN Routine 01/11/2023 3:41 AM EDT HEMOGRAM Routine 01/11/2023 3:41 AM EDT DIFFERENTIAL, AUTOMATED Routine 01/11/2023 3:41 AM EDT HC CBC,PLT & AUTO DIFF Routine 01/11/2023 3:41 AM EDT HC PHOSPHORUS, SERUM Routine 01/11/2023 3:41 AM EDT HC MAGNESIUM, SERUM Routine 01/11/2023 3 :41 AM EDT HEPATIC FUNCTION PANEL Routine 01/11/2023 3:41 AM EDT BASIC METABOLIC PANEL (NON-FASTING) Routine 01/11/2023 3:41 AM EDT EKG 12-LEAD Routine 01/10/2023 5:51 PM EDT QT prolongation XR CHEST ONE VIEW Routine 01/10/2023 5:2 5 PM EDT HEMOGRAM Routine 01/10/2023 1:15 AM EDT DIFFERENTIAL, AUTOMATED Routine 01/10/2023 1:15 AM EDT HC CBC,PLT & AUTO DIFF Routine 01/10/2023 1:15 AM EDT HC PHOSPHORUS, SERUM Routine 01/10/2023 1:15 AM EDT HC MAGNESIUM, SERUM Routine 01/10/2023 1 :15 AM EDT BASIC METABOLIC PANEL (NON-FASTING) Routine 01/10/2023 1:15 AM EDT HC BLOOD CULTURE- STAT 01/09/2023 3:0 9 PM EDT HC VENIPUNCTURE STAT 01/09/2023 3:09 PM EDT HC VANCOMYCIN Timed 01/09/2023 11:40 AM EDT HC C-REACTIVE PROTEIN Routine 01/09/2023 9:45 AM EDT HC ESR-SEDIMENTATION RATE, BLOOD Routine 01/09/2023 9:45 AM EDT HEMOGRAM Routine 01/09/2023 1:42 AM EDT DIFFERENTIAL, AUTOMATED Routine 01/09/2023 1:42 AM EDT HC CBC,PLT & AUTO DIFF Routine 01/09/2023 1:42 AM EDT HC PHOSPHORUS, SERUM Routine 01/09/2023 1:42 AM EDT HC MAGNESIUM, SERUM Routine 01/09/2023 1 :42 AM EDT HEPATIC FUNCTION PANEL Routine 01/09/2023 1:42 AM EDT BASIC METABOLIC PANEL (NON-FASTING) Routine 01/09/2023 1:42 AM EDT HC VENIPUNCTURE Routine 01/08/2023 1:07 AM EDT HC VENIPUNCTURE Routine 01/08/2023 1:06 AM EDT HEMOGRAM Routine 01/08/2023 12:25 AM EDT DIFFERENTIAL, AUTOMATED Routine 01/08/2023 12:25 AM EDT HC CBC,PLT & AUTO DIFF Routine 01/08/2023 12:25 AM EDT HC PHOSPHORUS, SERUM Routine 01/08/2023 12:25 AM EDT HC MAGNESIUM, SERUM Routine 01/08/2023 1 2:25 AM EDT BASIC METABOLIC PANEL (NON-FASTING) Routine 01/08/2023 12:[address] PICC LINE: CONTACT VASCULAR ACCESS Routine 01/07/2023 11:09 AM EDT XR PICC PLACEMENT OVER 5 YEARS (IV TEAM) Routine 01/07/2023 10:48 AM EDT HC VENIPUNCTURE Timed 01/07/2023 6:11 AM EDT HEPATIC FUNCTION PANEL Routine 01/07/2023 6:11 AM EDT HC VENIPUNCTURE Routine 01/07/2023 12:51 AM EDT HEMOGRAM Routine 01/07/2023 12:40 AM EDT DIFFERENTIAL, AUTOMATED Routine 01/07/2023 12:40 AM EDT HC BLOOD CULTURE- Routine 01/07/2023 12: 40 AM EDT HC VENIPUNCTURE Routine 01/07/2023 12:40 AM EDT HC PHOSPHORUS, SERUM Routine 01/07/2023 12:40 AM EDT HC MAGNESIUM, SERUM Routine 01/07/2023 1 2:40 AM EDT BASIC METABOLIC PANEL (NON-FASTING) Routine 01/07/2023 12:40 AM EDT HC VENIPUNCTURE STAT 01/06/2023 10:30 AM EDT HC VENIPUNCTURE STAT 01/06/2023 10:17 AM EDT HEMOGRAM Routine 01/06/2023 6:48 AM EDT DIFFERENTIAL, AUTOMATED Routine 01/06/2023 6:48 AM EDT HC VENIPUNCTURE Routine 01/06/2023 6:48 AM EDT HC PHOSPHORUS, SERUM Routine 01/06/2023 6:48 AM EDT HC MAGNESIUM, SERUM Routine 01/06/2023 6 :48 AM EDT BASIC METABOLIC PANEL (NON-FASTING) Routine 01/06/2023 6:48 AM EDT HC VANCOMYCIN Timed 01/05/2023 2:20 PM EDT HC C-REACTIVE PROTEIN Routine 01/05/2023 2:20 PM EDT HC HEPATITIS C ANTIBODY Routine 01/05/2023 2:20 PM EDT HC HEPATITIS B CORE AB Routine 01/05/2023 2:20 PM EDT HC HIV SCREEN, 4TH GENERATION Routine 01/05/2023 2:20 PM EDT HC HEPATITIS B SURFACE AB Routine 01/05/2023 2:20 PM EDT HC HEPATITIS B SURFACE AG Routine 01/05/2023 2:20 PM EDT HC ESR-SEDIMENTATION RATE, BLOOD Routine 01/05/2023 2:20 PM EDT XR KNEE AP & LAT RIGHT STAT 01/05/2023 1:26 PM EDT HC BLOOD CULTURE- STAT 01/05/2023 9:2 0 AM EDT HC BLOOD CULTURE- STAT 01/05/2023 9:0 0 AM EDT HEMOGRAM Routine 01/05/2023 5:17 AM EDT DIFFERENTIAL, AUTOMATED Routine 01/05/2023 5:17 AM EDT HC CBC,PLT & AUTO DIFF Routine 01/05/2023 5:17 AM EDT HC PHOSPHORUS, SERUM Routine 01/05/2023 5:17 AM EDT HC MAGNESIUM, SERUM Routine 01/05/2023 5 :17 AM EDT BASIC METABOLIC PANEL (NON-FASTING) Routine 01/05/2023 5:17 AM EDT HC VANCOMYCIN Timed 01/04/2023 9:21 PM EDT MRI LUMBAR SPINE WITH/WO CONTRAST Routine 01/04/2023 7:46 PM EDT ECHO COMPLETE Routine 01/04/2023 4:49 PM EDT Epidural abscess HC BLOOD CULTURE- STAT 01/04/2023 2:5 0 PM EDT HC BLOOD CULTURE- STAT 01/04/2023 2:0 0 PM EDT HC ESR-SEDIMENTATION RATE, BLOOD Routine 01/04/2023 10:40 AM EDT HC L-LACTATE Routine 01/04/2023 1:58 AM EDT OPIOIDS CONFIRMATION PANEL, URINE Routine 01/04/2023 1:53 AM EDT RAPID DRUG SCREEN, URINE (MARCO REQUEST) Routine 01/04/2023 1:53 AM EDT RAPID DRUG SCREEN W/ CONFIRMATION, URINE Routine 01/04/2023 1:53 AM EDT COCAINE, URINE, CONFIRMATION Routine 01/04/2023 1:53 AM EDT HC PROTHROMBIN TIME Routine 01/04/2023 1 2:56 AM EDT BASIC METABOLIC PANEL (NON-FASTING) Routine 01/04/2023 12:56 AM EDT REQUEST FOR 2ND READ MR SPINE STAT 01/04/2023 12:29 AM EDT L-LACTATE2 WHOLE BLOOD Routine 01/03/2023 11:18 PM EDT HC C-REACTIVE PROTEIN STAT 01/03/2023 11:13 PM EDT HEMOGRAM STAT 01/03/2023 11:13 PM EDT DIFFERENTIAL, AUTOMATED STAT 01/03/2023 11:13 PM EDT HC BLOOD CULTURE- STAT 01/03/2023 11: 13 PM EDT HC BLOOD CULTURE- STAT 01/03/2023 11: 13 PM EDT HC ESR-SEDIMENTATION RATE, BLOOD STAT 01/03/2023 11:13 PM EDT HC CBC,PLT & AUTO DIFF STAT 01/03/2023 11:13 PM EDT COMPREHENSIVE METABOLIC PANEL (NON-FASTING) STAT 01/03/2023 11:13 PM EDT XR CHEST ONE VIEW STAT 01/03/2023 10: 27 PM EDT documented in this encounter Results * Differential, Automated (01/17/2023 2:15 AM EDT) Neutrophils % 49.1 % [facility] Neutr Abs (ANC) 2.72 1.70 - 6.10 x10(3)/mcL [facility] Lymphocytes % 34.3 % [facility] Lymphocytes Abs 1.9 0.9 - 3.2 x10(3)/[facility] Monocytes % 11.0 % [facility] Monocyte Abs 0.6 0.3 - 0.9 x10(3)/[facility] Eosinophils % 4.7 % [facility] Eosinophils Abs 0.3 0.0 - 0.4 x10(3)/[facility] Basophils % 0.5 % [facility] Basophils Abs 0.0 0.0 - 0.1 x10(3)/[facility] Immature Gran % 0.40 % [facility] Comment: Immature granulocytes(IG's)percentage and absolute count will include metamyelocytes, myelocytes, and promyelocytes. Blood smears from CBCs yielding IG's will be scanned manually for concordance. If this scan disagrees with the automated IG or if promyelocytes are noted, a manual differential will be performed. Jaqueline Gran Abs 0.02 0.00 - 0.04 x10(3)/[facility] Blood 01/17/2023 2:15 AM EDT 01/17/2023 2:24 AM EDT Narrative Resulting Agency Comment Spec In Lab Nolan Ardon MD HEMATOLOGY ORDERABLE S [facility] [place] [address] * (ABNORMAL) Hemogram (01/17/2023 2:15 AM EDT) WBC 5.5 4.0 - 9.5 x10(3)/[facility] RBC 3.86(L) 4.00 - 5.21 x10(6)/[facility] Hemoglobin 10.5(L) 11.7 - 15.5 g/dL [facility] Hematocrit 33.5(L) 35.7 - 45.8 % [facility] MCV 86.8 82.6 - 94.4 [facility] MCH 27.2 27.1 - 32.0 pg [facility] MCHC 31.3(L) 31.7 - 35.0 g/dL [facility] Platelets 296 145 - 357 x10(3)/[facility] RDWSD 46.4(H) 37.0 - 46.0 [facility] RDWCV 14.5(H) 11.5 - 14.1 % [facility] MPV 8.8 7.6 - 12.9 [facility] nRBC % Auto 0.0 % [facility] nRBC Abs Auto 0.000 0.000 - 0.000 x10(3)/[facility] Blood 01/17/2023 2:15 AM EDT 01/17/2023 2:24 AM EDT Narrative Resulting Agency Comment Spec In Lab Nolan Ardon MD HEMATOLOGY ORDERABLE S [facility] [place] [address] * (ABNORMAL) CRP, acute inflammation (01/17/2023 2:15 AM EDT) CRP 16.3(H) <=4.9 mg/L [facility] Blood 01/17/2023 2:15 AM EDT 01/17/2023 2:24 AM EDT Narrative Resulting Agency Comment Spec In Lab Jose Galvez APRN CHEMISTRY ORDERAB LES [facility] [place] [address] * (ABNORMAL) Phosphorus (01/17/2023 2:15 AM EDT) Phosphorus 6.0(H) 2.5 - 4.5 mg/dL [facility] Blood 01/17/2023 2:15 AM EDT 01/17/2023 2:24 AM EDT Narrative Resulting Agency Comment Spec In Lab Fab Cross MD CHEMISTRY ORDERABLES Performing Organization Address City/[facility] Co de Phone Number [facility] [place] [address] * Magnesium (01/17/2023 2:15 AM EDT) Magnesium 0.92 0.69 - 1.07 mmol/L [facility] Blood 01/17/2023 2:15 AM EDT 01/17/2023 2:24 AM EDT Narrative Resulting Agency Comment Spec In Lab Fab Cross MD CHEMISTRY ORDERABLES Performing Organization Address [facility] de Phone Number [facility] [place] [address] * Basic Metabolic Panel (non-fasting) (01/17/2023 2:15 AM EDT) Glucose Lvl 112 65 - 199 mg/dL [facility] Comment:Diabetes: >=200 mg/d L plus symptoms BUN 18 8 - 18 mg/dL [facility] Creatinine 0.77 0.70 - 1.20 mg/dL [facility] Sodium 139 135 - 145 mmol/L [facility] Potassium 4.3 3.5 - 5.0 mmol/L [facility] Comment: Please note: ??Patients with WBC >100,000 may have falsely elevated Potassium levels. ??For accurate Potassium quantification in these patients send serum separator tube (gold top) for subsequent determinations. ??Contact the Clinical Chemistry Laboratory if there are any questions. Chloride 102 98 - 107 mmol/L [facility] CO2 29 22 - 31 mmol/L [facility] Anion Gap 8 5 - 15 mmol/L [facility] Calcium 9.2 8.5 - 10.5 mg/dL [facility] Estimated GFR 104 >=60 mL/min/1. 73 m?? [facility] Comment: This patient's estimated GFR [...] and symptoms in addition to eGFR. Blood 01/17/2023 2:15 AM EDT 01/17/2023 2:24 AM EDT Narrative Resulting Agency Comment Spec In Lab Fab Cross MD CHEMISTRY ORDERABLES Performing Organization Address City/[facility]/ZIP Co de Phone Number [facility] [place] [address] * CK (01/16/2023 3:35 PM EDT) CK, Total 29 0 - 160 unit/L [facility] Blood 01/16/2023 3:35 PM EDT 01/16/2023 4:51 PM EDT Narrative Resulting Agency Comment Spec In Lab Abigail Hernandez APRN CHEMISTRY ORDERABLE S Performing Organization Address City/[facility]/ZIP Co de Phone Number [facility] [place] [address] * XR PICC Placement Over 5 Years with Imaging Guidance (IV Team) (01/16/2023 3:05 PM EDT) Anatomical Region Laterality Modality N/A Radio Fluoroscop y Impressions 01/16/2023 3:17 PM EDT FINDINGS/IMPRESSION: Intraprocedural frontal radiograph of the mediastinum demonstrates a right PICC line, with the catheter tip projected at the superior cavoatrial junction. I have personally reviewed the image(s) and the resident's interpretation and agree with the findings, Kacey Hall MD at 01/16/2023 3:17 PM Thank you for letting us participate in the care of this patient. ??If you are a health care provider and have any questions regarding this report, please contact the number below. ??For patients who have questions please contact the health reproductive healthcare assistant that requested your imaging first. ? Narrative 01/16/2023 3:17 PM EDT EXAMINATION: XR PICC PLACEMENT OVER 5 YEARS WITH IMAGING GUIDANCE (IV TEAM) CLINICAL HISTORY: Confirmation of PICC line placement; IV Antibiotic Therapy TECHNIQUE: C-arm placement of PICC line. Limited view of the line tip only. COMPARISON: 01/07/2023 Procedure Note Kacey Wilhelm MD - 01/16/2023 EXAMINATION: XR PICC PLACEMENT OVER 5 YEARS WITH IMAGING GUIDANCE (IVTEAM) CLINICAL HISTORY: Confirmation of PICC line placement; IV AntibioticTherapy TECHNIQUE: C-arm placement of PICC line. Limited view of the line tiponly. COMPARISON: 01/07/2023 IMPRESSION FINDINGS/IMPRESSION: Intraprocedural frontal radiograph of themediastinum demonstrates a right PICC line, with the catheter tip projected at thesuperior cavoatrial junction. I have personally reviewed the image(s) and the resident's interpretationand agree with the findings, Kacey Hall MD at 01/16/2023 3:17PM Thank you for letting us participate in the care of this patient. If youare a health care provider and have any questions regarding this report,please contact the number below. For patients who have questions please contactthe health reproductive healthcare assistant that requested your imaging first. Electronically signed by: Kacey Hall MD, [facility] ([phone]), at 01/16/2023 3:17 PM Abigail Hernandez SALES STORE CHECKER IMG FLUORO ORDERABL ES * PICC Line Rewire Is PICC procedure required PRIOR to patients discharge? Yes (01/16/2023 3:05 PM EDT) Narrative Soledad Cosby RN - 01/16/2023 3:05 PM EDT Soledad Cosby RN ? 01/16/2023 ??3:07 PM PICC/Midline Insertion Procedure Note Indications: Anti-infective This insertion was not to replace a malfunctioning catheter. This insertion was not due to a suspected line-associated infection. Location of Procedure: X-Ray Room 11 Risks and Benefits: The risks and benefits of this procedure were reviewed and informed consent was obtained obtained. Time Out: Prior to the start of the procedure, the patient's identity, intended procedure, site/side, correct patient positioning and presence of the site reji was confirmed as applicable. The medical history and chart were reviewed to rule out potential contraindications to the planned procedure. Hand Hygiene: The product sales engineer did perform hand hygiene prior to line insertion. Catheter type: PICC Lot number: [id number] Procedure Technique: Skin was prepped with chlorhexidine. Skin preparation agent was completely dry at the time of first skin puncture. The following barrier precaution methods were used:large sterile drape, maske/eye shield, large sterile gown, sterile gloves, and cap. 1 ml of 1% Lidocaine was used for skin wheal. Ultrasound was not used for guidance. Radiographic contrast agent was not injected for vein identification. Procedure Details: Order received for catheter placement. A 4 Fr. single lumen Bard Power catheter was placed into the right basilic vein over a 0.018 inch guidewire using modified seldinger technique and fluoroscopy. Arm circumference was 44 cm at 2 cm above the insertion site. Final catheter length (with trimming): 50 cm Internal: 50 cm External: 0 cm Tip in SVC per Isabel. The line was not placed over a guidewire. Post Procedure: Diagnosis: Epidural Abscess Blood return noted on aspiration of line after placement confirmed. 5 mls of normal saline infused free flowing to gravity via PICC after insertion. Sterile dressing applied: CHG Impregnated Tegaderm. Findings: The patient did tolerate the procedure well. No Complications. Procedure Comments: Rewire double lumen picc to single lumen picc for discharge SOLEDAD COSBY RN 01/16/2023 Abigail Hernandez LUIS PROCEDURE/MINOR AARON GICAL ORDERABLES * Differential, Automated (01/16/2023 2:25 AM EDT) Neutrophils % 53.7 % [facility] Neutr Abs (ANC) 3.13 1.70 - 6.10 x10(3)/[facility] Lymphocytes % 29.0 % [facility] Lymphocytes Abs 1.7 0.9 - 3.2 x10(3)/[facility] Monocytes % 11.8 % [facility] Monocyte Abs 0.7 0.3 - 0.9 x10(3)/[facility] Eosinophils % 4.5 % [facility] Eosinophils Abs 0.3 0.0 - 0.4 x10(3)/[facility] Basophils % 0.7 % [facility] Basophils Abs 0.0 0.0 - 0.1 x10(3)/[facility] Immature Gran % 0.30 % [facility] Comment: Immature granulocytes(IG's)percentage and absolute count will include metamyelocytes, myelocytes, and promyelocytes. Blood smears from CBCs yielding IG's will be scanned manually for concordance. If this scan disagrees with the automated IG or if promyelocytes are noted, a manual differential will be performed. Jaqueline Gran Abs 0.02 0.00 - 0.04 x10(3)/[facility] Blood 01/16/2023 2:25 AM EDT 01/16/2023 2:35 AM EDT Narrative Resulting Agency Comment Spec In Lab Nolan Ardon MD HEMATOLOGY ORDERABLE S [facility] [place] [address] * (ABNORMAL) Hemogram (01/16/2023 2:25 AM EDT) Pathologist [facility] WBC 5.8 4.0 - 9.5 x10(3)/[facility] RBC 3.98(L) 4.00 - 5.21 x10(6)/[facility] Hemoglobin 10.8(L) 11.7 - 15.5 g/dL [facility] Hematocrit 34.2(L) 35.7 - 45.8 % [facility] MCV 85.9 82.6 - 94.4 [facility] MCH 27.1 27.1 - 32.0 pg [facility] MCHC 31.6(L) 31.7 - 35.0 g/dL [facility] Platelets 350 145 - 357 x10(3)/[facility] RDWSD 45.5 37.0 - 46.0 [facility] RDWCV 14.4(H) 11.5 - 14.1 % [facility] MPV 8.5 7.6 - 12.9 [facility] nRBC % Auto 0.0 % [facility] nRBC Abs Auto 0.000 0.000 - 0.000 x10(3)/[facility] Blood 01/16/2023 2:25 AM EDT 01/16/2023 2:35 AM EDT Narrative Resulting Agency Comment Spec In Lab Nolan Ardon MD HEMATOLOGY ORDERABLE S [facility] [place] [address] * (ABNORMAL) CRP, acute inflammation (01/16/2023 2:25 AM EDT) Pathologist [facility] CRP 24.5(H) <=4.9 mg/L [facility] Blood 01/16/2023 2:25 AM EDT 01/16/2023 2:35 AM EDT Narrative Resulting Agency Comment Spec In Lab Jose Willis Leonor SMITH CHEMISTRY ORDERAB LES Performing Organization Address City/[facility]/ZIP Co de Phone Number [facility] [place] [address] * (ABNORMAL) Phosphorus (01/16/2023 2:25 AM EDT) Phosphorus 5.1(H) 2.5 - 4.5 mg/dL [facility] Blood 01/16/2023 2:25 AM EDT 01/16/2023 2:35 AM EDT Narrative Resulting Agency Comment Spec In Lab Fab Cross MD CHEMISTRY ORDERABLES Performing Organization Address [facility] Co de Phone Number [facility] [place] [address] * Magnesium (01/16/2023 2:25 AM EDT) Magnesium 0.84 0.69 - 1.07 mmol/L [facility] Blood 01/16/2023 2:25 AM EDT 01/16/2023 2:35 AM EDT Narrative Resulting Agency Comment Spec In Lab Fab Cross MD CHEMISTRY ORDERABLES Performing Organization Address [facility] Co de Phone Number [facility] [place] [address] * Basic Metabolic Panel (non-fasting) (01/16/2023 2:25 AM EDT) Glucose Lvl 99 65 - 199 mg/dL [facility] Comment:Diabetes: >=200 mg/d L plus symptoms BUN 17 8 - 18 mg/dL [facility] Creatinine 0.84 0.70 - 1.20 mg/dL [facility] Sodium 139 135 - 145 mmol/L [facility] Potassium 4.1 3.5 - 5.0 mmol/L [facility] Comment: Please note: ??Patients with WBC >100,000 may have falsely elevated Potassium levels. ??For accurate Potassium quantification in these patients send serum separator tube (gold top) for subsequent determinations. ??Contact the Clinical Chemistry Laboratory if there are any questions. Chloride 102 98 - 107 mmol/L [facility] CO2 28 22 - 31 mmol/L [facility] Anion Gap 9 5 - 15 mmol/L [facility] Calcium 9.2 8.5 - 10.5 mg/dL [facility] Estimated GFR 93 >=60 mL/min/1. 73 m?? [facility] Comment: This patient's estimated GFR [...] and symptoms in addition to eGFR. Blood 01/16/2023 2:25 AM EDT 01/16/2023 2:35 AM EDT Narrative Resulting Agency Comment Spec In Lab Fab Cross MD CHEMISTRY ORDERABLES [facility] [place] [address] * Differential, Automated (01/15/2023 3:00 AM EDT) Neutrophils % 63.2 % [facility] Neutr Abs (ANC) 4.72 1.70 - 6.10 x10(3)/mcL [facility] Lymphocytes % 24.0 % [facility] Lymphocytes Abs 1.8 0.9 - 3.2 x10(3)/[facility] Monocytes % 8.6 % [facility] Monocyte Abs 0.6 0.3 - 0.9 x10(3)/[facility] Eosinophils % 3.4 % [facility] Eosinophils Abs 0.2 0.0 - 0.4 x10(3)/[facility] Basophils % 0.4 % [facility] Basophils Abs 0.0 0.0 - 0.1 x10(3)/[facility] Immature Gran % 0.40 % [facility] Comment: Immature granulocytes(IG's)percentage and absolute count will include metamyelocytes, myelocytes, and promyelocytes. Blood smears from CBCs yielding IG's will be scanned manually for concordance. If this scan disagrees with the automated IG or if promyelocytes are noted, a manual differential will be performed. Jaqueline Gran Abs 0.03 0.00 - 0.04 x10(3)/[facility] Blood 01/15/2023 3:00 AM EDT 01/15/2023 3:12 AM EDT Narrative Resulting Agency Comment Spec In Lab Nolan Ardon MD HEMATOLOGY ORDERABLE S [facility] [place] [address] * (ABNORMAL) Hemogram (01/15/2023 3:00 AM EDT) WBC 7.5 4.0 - 9.5 x10(3)/[facility] RBC 3.85(L) 4.00 - 5.21 x10(6)/[facility] Hemoglobin 10.4(L) 11.7 - 15.5 g/dL [facility] Hematocrit 33.1(L) 35.7 - 45.8 % [facility] MCV 86.0 82.6 - 94.4 fL [facility] MCH 27.0(L) 27.1 - 32.0 pg [facility] MCHC 31.4(L) 31.7 - 35.0 g/dL [facility] Platelets 334 145 - 357 x10(3)/[facility] RDWSD 46.9(H) 37.0 - 46.0 fL [facility] RDWCV 14.7(H) 11.5 - 14.1 % [facility] MPV 8.6 7.6 - 12.9 [facility] nRBC % Auto 0.0 % [facility] nRBC Abs Auto 0.000 0.000 - 0.000 x10(3)/[facility] Blood 01/15/2023 3:00 AM EDT 01/15/2023 3:12 AM EDT Narrative Resulting Agency Comment Spec In Lab Nolan Ardon MD HEMATOLOGY ORDERABLE S [facility] [place] [address] * (ABNORMAL) CRP, acute inflammation (01/15/2023 3:00 AM EDT) CRP 18.7(H) <=4.9 mg/L [facility] Blood 01/15/2023 3:00 AM EDT 01/15/2023 3:12 AM EDT Narrative Resulting Agency Comment Spec In Lab Jose Galvez APRN CHEMISTRY ORDERAB LES [facility] [place] [address] * (ABNORMAL) Phosphorus (01/15/2023 3:00 AM EDT) Phosphorus 5.6(H) 2.5 - 4.5 mg/dL [facility] Blood 01/15/2023 3:00 AM EDT 01/15/2023 3:12 AM EDT Narrative Resulting Agency Comment Spec In Lab Fab Cross MD CHEMISTRY ORDERABLES Performing Organization Address [facility] Co de Phone Number [facility] [place] [address] * Magnesium (01/15/2023 3:00 AM EDT) Magnesium 0.85 0.69 - 1.07 mmol/L [facility] Blood 01/15/2023 3:00 AM EDT 01/15/2023 3:12 AM EDT Narrative Resulting Agency Comment Spec In Lab Fab Cross MD CHEMISTRY ORDERABLES Performing Organization Address [facility] de Phone Number [facility] [place] [address] * Basic Metabolic Panel (non-fasting) (01/15/2023 3:00 AM EDT) Glucose Lvl 129 65 - 199 mg/dL [facility] Comment:Diabetes: >=200 mg/d L plus symptoms BUN 14 8 - 18 mg/dL [facility] Creatinine 0.74 0.70 - 1.20 mg/dL [facility] Sodium 140 135 - 145 mmol/L [facility] Potassium 3.9 3.5 - 5.0 mmol/L [facility] Comment: Please note: ??Patients with WBC >100,000 may have falsely elevated Potassium levels. ??For accurate Potassium quantification in these patients send serum separator tube (gold top) for subsequent determinations. ??Contact the Clinical Chemistry Laboratory if there are any questions. Chloride 102 98 - 107 mmol/L [facility] CO2 27 22 - 31 mmol/L [facility] Anion Gap 11 5 - 15 mmol/L [facility] Calcium 9.3 8.5 - 10.5 mg/dL [facility] Estimated GFR 109 >=60 mL/min/1. 73 m?? [facility] Comment: This patient's estimated GFR [...] and symptoms in addition to eGFR. Blood 01/15/2023 3:00 AM EDT 01/15/2023 3:12 AM EDT Narrative Resulting Agency Comment Spec In Lab Fab Cross MD CHEMISTRY ORDERABLES Performing Organization Address City/[facility]/ZIP Co de Phone Number [facility] [place] [address] * Vancomycin, trough (01/14/2023 3:05 PM EDT) Vanc Trough 17.2 mg/L [facility] Comment: Therapeutic range for complicated infections such as bacteremia, endocarditis, osteomyelitis, meningitis, and hospital-acquired pneumonia caused by S. aureus: 15-20 mg/L Therapeutic range for other indications: 10-15 mg/L Toxic: >20 mg/L Reference: Vancomycin Therapeutic Monitoring: Review and Recommendations from the ASHP, IDSA and SIDP Task Force. ??Am J [employer]-Syst Pharm. 2009; 66:82-98 Blood 01/14/2023 3:05 PM EDT 01/14/2023 3:13 PM EDT Narrative Resulting Agency Comment Spec In Lab Joao Lynch MD CHEMISTRY ORDERABLES Performing Organization Address City/[facility]/ZIP Co de Phone Number [facility] [place] [address] * Differential, Automated (01/14/2023 12:29 AM EDT) Neutrophils % 57.9 % [facility] Neutr Abs (ANC) 3.91 1.70 - 6.10 x10(3)/[facility] Lymphocytes % 26.9 % [facility] Lymphocytes Abs 1.8 0.9 - 3.2 x10(3)/[facility] Monocytes % 9.2 % [facility] Monocyte Abs 0.6 0.3 - 0.9 x10(3)/[facility] Eosinophils % 5.0 % [facility] Eosinophils Abs 0.3 0.0 - 0.4 x10(3)/[facility] Basophils % 0.4 % [facility] Basophils Abs 0.0 0.0 - 0.1 x10(3)/[facility] Immature Gran % 0.60 % [facility] Comment: Immature granulocytes(IG's)percentage and absolute count will include metamyelocytes, myelocytes, and promyelocytes. Blood smears from CBCs yielding IG's will be scanned manually for concordance. If this scan disagrees with the automated IG or if promyelocytes are noted, a manual differential will be performed. Jaqueline Gran Abs 0.04 0.00 - 0.04 x10(3)/[facility] Blood 01/14/2023 12:2 9 AM EDT 01/14/2023 12:34 AM EDT Narrative Resulting Agency Comment Spec In Lab Nolan Ardon MD HEMATOLOGY ORDERABLE S [facility] [place] [address] * (ABNORMAL) Hemogram (01/14/2023 12:29 AM EDT) WBC 6.8 4.0 - 9.5 x10(3)/[facility] RBC 3.93(L) 4.00 - 5.21 x10(6)/[facility] Hemoglobin 10.7(L) 11.7 - 15.5 g/dL [facility] Hematocrit 33.8(L) 35.7 - 45.8 % [facility] MCV 86.0 82.6 - 94.4 fL [facility] MCH 27.2 27.1 - 32.0 pg [facility] MCHC 31.7 31.7 - 35.0 g/dL [facility] Platelets 327 145 - 357 x10(3)/[facility] RDWSD 46.3(H) 37.0 - 46.0 fL [facility] RDWCV 14.6(H) 11.5 - 14.1 % [facility] MPV 8.6 7.6 - 12.9 [facility] nRBC % Auto 0.0 % [facility] nRBC Abs Auto 0.000 0.000 - 0.000 x10(3)/[facility] Blood 01/14/2023 12:2 9 AM EDT 01/14/2023 12:34 AM EDT Narrative Resulting Agency Comment Spec In Lab Nolan Ardon MD HEMATOLOGY ORDERABLE S [facility] [place] [address] * (ABNORMAL) CRP, acute inflammation (01/14/2023 12:29 AM EDT) CRP 34.4(H) <=4.9 mg/L [facility] Blood 01/14/2023 12:2 9 AM EDT 01/14/2023 12:34 AM EDT Narrative Resulting Agency Comment Spec In Lab Jose Galvez APRN CHEMISTRY ORDERAB LES [facility] [place] [address] * (ABNORMAL) Phosphorus (01/14/2023 12:29 AM EDT) Phosphorus 4.7(H) 2.5 - 4.5 mg/dL [facility] Blood 01/14/2023 12:2 9 AM EDT 01/14/2023 12:34 AM EDT Narrative Resulting Agency Comment Spec In Lab Fab Cross MD CHEMISTRY ORDERABLES Performing Organization Address [facility] Co de Phone Number [facility] [place] [address] * Magnesium (01/14/2023 12:29 AM EDT) Magnesium 0.84 0.69 - 1.07 mmol/L [facility] Blood 01/14/2023 12:2 9 AM EDT 01/14/2023 12:34 AM EDT Narrative Resulting Agency Comment Spec In Lab Fab Cross MD CHEMISTRY ORDERABLES Performing Organization Address [facility] Co de Phone Number [facility] [place] [address] * (ABNORMAL) Basic Metabolic Panel (non-fasting) (01/14/2023 12:29 AM EDT) Pathologist [facility] Glucose Lvl 104 65 - 199 mg/dL [facility] Comment:Diabetes: >=200 mg/d L plus symptoms BUN 13 8 - 18 mg/dL [facility] Creatinine 0.66(L) 0.70 - 1.20 mg/dL [facility] Sodium 140 135 - 145 mmol/L [facility] Potassium 4.1 3.5 - 5.0 mmol/L [facility] Comment: Please note: ??Patients with WBC >100,000 may have falsely elevated Potassium levels. ??For accurate Potassium quantification in these patients send serum separator tube (gold top) for subsequent determinations. ??Contact the Clinical Chemistry Laboratory if there are any questions. Chloride 104 98 - 107 mmol/L [facility] CO2 28 22 - 31 mmol/L [facility] Anion Gap 8 5 - 15 mmol/L [facility] Calcium 8.8 8.5 - 10.5 mg/dL [facility] Estimated GFR 118 >=60 mL/min/1. 73 m?? [facility] Comment: This patient's estimated GFR [...] and symptoms in addition to eGFR. Blood 01/14/2023 12:2 9 AM EDT 01/14/2023 12:34 AM EDT Narrative Resulting Agency Comment Spec In Lab Fba Cross MD CHEMISTRY ORDERABLES [facility] [place] [address] * EKG 12 Lead (01/13/2023 9:24 AM EDT) Ventricular rate 78 BPM MUSE SYSTEM Atrial Rate 78 BPM MUSE SYSTEM P-R Interval 148 ms MUSE SYSTEM QRS Duration 126 ms MUSE SYSTEM Q-T Interval 404 ms MUSE SYSTEM QTC Calculated (Bezet) 460 ms MUSE SYSTEM Calculated P [place] 60 degrees MUSE SYSTEM Calculated R [place] 45 degrees MUSE SYSTEM Calculated T [place] 37 degrees MUSE SYSTEM INTERPRETATION Normal sinus rhythm Right bundle branch block Abnormal ECG When compared with ECG of 12-JAN-2023 13:59, No significant change was found Confirmed by MD Paulina, Ping ([id number]) on 01/14/2023 6:45:28 AM MUSE SYSTEM 01/13/2023 9:24 AM EDT 01/14/2023 6:45 AM EDT Jose Galvez APRN ECG ORDERABLES MUSE SYSTEM * Differential, Automated (01/13/2023 4:15 AM EDT) Pathologist [facility] Neutrophils % 60.1 % [facility] Neutr Abs (ANC) 4.23 1.70 - 6.10 x10(3)/[facility] Lymphocytes % 26.5 % [facility] Lymphocytes Abs 1.9 0.9 - 3.2 x10(3)/[facility] Monocytes % 8.5 % [facility] Monocyte Abs 0.6 0.3 - 0.9 x10(3)/[facility] Eosinophils % 3.7 % [facility] Eosinophils Abs 0.3 0.0 - 0.4 x10(3)/[facility] Basophils % 0.6 % [facility] Basophils Abs 0.0 0.0 - 0.1 x10(3)/[facility] Immature Gran % 0.60 % [facility] Comment: Immature granulocytes(IG's)percentage and absolute count will include metamyelocytes, myelocytes, and promyelocytes. Blood smears from CBCs yielding IG's will be scanned manually for concordance. If this scan disagrees with the automated IG or if promyelocytes are noted, a manual differential will be performed. Jaqueline Gran Abs 0.04 0.00 - 0.04 x10(3)/[facility] Blood 01/13/2023 4:15 AM EDT 01/13/2023 4:26 AM EDT Narrative Resulting Agency Comment Spec In Lab Nolan Ardon MD HEMATOLOGY ORDERABLE S [facility] [place] [address] * (ABNORMAL) Hemogram (01/13/2023 4:15 AM EDT) Pathologist [facility] WBC 7.0 4.0 - 9.5 x10(3)/[facility] RBC 3.91(L) 4.00 - 5.21 x10(6)/[facility] Hemoglobin 10.6(L) 11.7 - 15.5 g/dL [facility] Hematocrit 33.6(L) 35.7 - 45.8 % [facility] MCV 85.9 82.6 - 94.4 fL [facility] MCH 27.1 27.1 - 32.0 pg [facility] MCHC 31.5(L) 31.7 - 35.0 g/dL [facility] Platelets 260 145 - 357 x10(3)/[facility] RDWSD 46.3(H) 37.0 - 46.0 [facility]ORY RDWCV 14.9(H) 11.5 - 14.1 % [facility] MPV 8.8 7.6 - 12.9 [facility] nRBC % Auto 0.0 % [facility] nRBC Abs Auto 0.000 0.000 - 0.000 x10(3)/[facility] Blood 01/13/2023 4:15 AM EDT 01/13/2023 4:26 AM EDT Narrative Resulting Agency Comment Spec In Lab Nolan Ardon MD HEMATOLOGY ORDERABLE S [facility] [place] [address] * (ABNORMAL) CRP, acute inflammation (01/13/2023 4:15 AM EDT) CRP 42.6(H) <=4.9 mg/L [facility] Blood 01/13/2023 4:15 AM EDT 01/13/2023 4:26 AM EDT Narrative Resulting Agency Comment Spec In Lab Jose Alba Galvez APRN CHEMISTRY ORDERAB LES Performing Organization Address City/[facility]/ZIP Co de Phone Number [facility] [place] [address] * (ABNORMAL) Phosphorus (01/13/2023 4:15 AM EDT) Phosphorus 5.0(H) 2.5 - 4.5 mg/dL [facility] Blood 01/13/2023 4:15 AM EDT 01/13/2023 4:26 AM EDT Narrative Resulting Agency Comment Spec In Lab Fab Cross MD CHEMISTRY ORDERABLES Performing Organization Address [facility]/ZIP Co de Phone Number [facility] [place] [address] * Magnesium (01/13/2023 4:15 AM EDT) Magnesium 0.84 0.69 - 1.07 mmol/L [facility] Blood 01/13/2023 4:15 AM EDT 01/13/2023 4:26 AM EDT Narrative Resulting Agency Comment Spec In Lab Fab Cross MD CHEMISTRY ORDERABLES Performing Organization Address [facility]/ZIP Co de Phone Number [facility] [place] [address] * Basic Metabolic Panel (non-fasting) (01/13/2023 4:15 AM EDT) Glucose Lvl 102 65 - 199 mg/dL [facility] Comment:Diabetes: >=200 mg/d L plus symptoms BUN 11 8 - 18 mg/dL [facility] Creatinine 0.72 0.70 - 1.20 mg/dL [facility] Sodium 140 135 - 145 mmol/L [facility] Potassium 4.2 3.5 - 5.0 mmol/L [facility] Comment: Please note: ??Patients with WBC >100,000 may have falsely elevated Potassium levels. ??For accurate Potassium quantification in these patients send serum separator tube (gold top) for subsequent determinations. ??Contact the Clinical Chemistry Laboratory if there are any questions. Chloride 103 98 - 107 mmol/L [facility] CO2 26 22 - 31 mmol/L [facility] Anion Gap 11 5 - 15 mmol/L [facility] Calcium 8.9 8.5 - 10.5 mg/dL [facility] Estimated GFR 112 >=60 mL/min/1. 73 m?? [facility] Comment: This patient's estimated GFR [...] and symptoms in addition to eGFR. Blood 01/13/2023 4:15 AM EDT 01/13/2023 4:26 AM EDT Narrative Resulting Agency Comment Spec In Lab Fab Cross MD CHEMISTRY ORDERABLES [facility] [place] [address] * EKG 12 Lead (01/12/2023 1:59 PM EDT) Ventricular rate 86 BPM MUSE SYSTEM Atrial Rate 86 BPM MUSE SYSTEM P-R Interval 140 ms MUSE SYSTEM QRS Duration 114 ms MUSE SYSTEM Q-T Interval 378 ms MUSE SYSTEM QTC Calculated (Bezet) 452 ms MUSE SYSTEM Calculated P [place] 59 degrees MUSE SYSTEM Calculated R [place] 60 degrees MUSE SYSTEM Calculated T [place] 45 degrees MUSE SYSTEM INTERPRETATION Normal sinus rhythm Right bundle branch block Abnormal ECG When compared with ECG of 10-JAN-2023 17:51, Questionabl e change in QRS axis Confirmed by MD RADHA, MELISSA ([id number]) on 01/12/2023 9:15:03 PM MUSE SYSTEM 01/12/2023 1:59 PM EDT 01/12/2023 9:15 PM EDT Jose Willis Leonor SMITH ECG ORDERABLES MUSE SYSTEM * Differential, Automated (01/12/2023 12:45 AM EDT) Neutrophils % 58.4 % [facility] Neutr Abs (ANC) 3.72 1.70 - 6.10 x10(3)/[facility] Lymphocytes % 27.0 % [facility] Lymphocytes Abs 1.7 0.9 - 3.2 x10(3)/[facility] Monocytes % 8.9 % [facility] Monocyte Abs 0.6 0.3 - 0.9 x10(3)/[facility] Eosinophils % 4.6 % [facility] Eosinophils Abs 0.3 0.0 - 0.4 x10(3)/[facility] Basophils % 0.5 % [facility] Basophils Abs 0.0 0.0 - 0.1 x10(3)/[facility] Immature Gran % 0.60 % [facility] Comment: Immature granulocytes(IG's)percentage and absolute count will include metamyelocytes, myelocytes, and promyelocytes. Blood smears from CBCs yielding IG's will be scanned manually for concordance. If this scan disagrees with the automated IG or if promyelocytes are noted, a manual differential will be performed. Jaqueline Gran Abs 0.04 0.00 - 0.04 x10(3)/[facility] Blood 01/12/2023 12:4 5 AM EDT 01/12/2023 1:05 AM EDT Narrative Resulting Agency Comment Spec In Lab Nolan Ardon MD HEMATOLOGY ORDERABLE S [facility] [place] [address] * (ABNORMAL) Hemogram (01/12/2023 12:45 AM EDT) Pathologist [facility] WBC 6.4 4.0 - 9.5 x10(3)/[facility] RBC 3.84(L) 4.00 - 5.21 x10(6)/[facility] Hemoglobin 10.4(L) 11.7 - 15.5 g/dL [facility] Hematocrit 33.0(L) 35.7 - 45.8 % [facility] MCV 85.9 82.6 - 94.4 [facility] MCH 27.1 27.1 - 32.0 pg [facility] MCHC 31.5(L) 31.7 - 35.0 g/dL [facility] Platelets 316 145 - 357 x10(3)/[facility] RDWSD 46.7(H) 37.0 - 46.0 [facility] RDWCV 14.7(H) 11.5 - 14.1 % [facility] MPV 8.9 7.6 - 12.9 [facility] nRBC % Auto 0.0 % [facility] nRBC Abs Auto 0.000 0.000 - 0.000 x10(3)/[facility] Blood 01/12/2023 12:4 5 AM EDT 01/12/2023 1:05 AM EDT Narrative Resulting Agency Comment Spec In Lab Nolan Ardon MD [place] [address] * (ABNORMAL) CRP, acute inflammation (01/12/2023 12:45 AM EDT) Pathologist [facility] CRP 76.1(H) <=4.9 mg/L [facility] Blood 01/12/2023 12:4 5 AM EDT 01/12/2023 1:05 AM EDT Narrative Resulting Agency Comment Spec In Lab Jose Alba Galvez APRN CHEMISTRY ORDERAB LES Performing Organization Address City/[facility]/ZIP Co de Phone Number [facility] [place] [address] * (ABNORMAL) Phosphorus (01/12/2023 12:45 AM EDT) Phosphorus 5.1(H) 2.5 - 4.5 mg/dL [facility] Blood 01/12/2023 12:4 5 AM EDT 01/12/2023 1:05 AM EDT Narrative Resulting Agency Comment Spec In Lab Fab Cross MD CHEMISTRY ORDERABLES Performing Organization Address [facility] Co de Phone Number [facility] [place] [address] * Magnesium (01/12/2023 12:45 AM EDT) Magnesium 0.85 0.69 - 1.07 mmol/L [facility] Blood 01/12/2023 12:4 5 AM EDT 01/12/2023 1:05 AM EDT Narrative Resulting Agency Comment Spec In Lab Fab Cross MD CHEMISTRY ORDERABLES Performing Organization Address [facility] Co de Phone Number [facility] [place] [address] * (ABNORMAL) Basic Metabolic Panel (non-fasting) (01/12/2023 12:45 AM EDT) Glucose Lvl 122 65 - 199 mg/dL [facility] Comment:Diabetes: >=200 mg/d L plus symptoms BUN 9 8 - 18 mg/dL [facility] Creatinine 0.66(L) 0.70 - 1.20 mg/dL [facility] Sodium 140 135 - 145 mmol/L [facility] Potassium 3.8 3.5 - 5.0 mmol/L [facility] Comment: Please note: ??Patients with WBC >100,000 may have falsely elevated Potassium levels. ??For accurate Potassium quantification in these patients send serum separator tube (gold top) for subsequent determinations. ??Contact the Clinical Chemistry Laboratory if there are any questions. Chloride 103 98 - 107 mmol/L [facility] CO2 28 22 - 31 mmol/L [facility] Anion Gap 9 5 - 15 mmol/L [facility] Calcium 9.0 8.5 - 10.5 mg/dL [facility] Estimated GFR 118 >=60 mL/min/1. 73 m?? [facility] Comment: This patient's estimated GFR [...] and symptoms in addition to eGFR. Blood 01/12/2023 12:4 5 AM EDT 01/12/2023 1:05 AM EDT Narrative Resulting Agency Comment Spec In Lab Fab Cross MD CHEMISTRY ORDERABLES [facility] [place] [address] * (ABNORMAL) Hepatic Function Panel (01/11/2023 3:41 AM EDT) Total Protein 6.3 6.1 - 8.0 g/dL [facility] Albumin 3.2 3.2 - 5.2 g/dL [facility] AST 28 0 - 30 unit/L [facility] ALT 51(H) 0 - 30 unit/L [facility] Alk Phos 118(H) 35 - 105 unit/L [facility] Total Bilirubin <0.2(L) 0.2 - 1.3 mg/dL [facility] Bili, Direct 0.1 0.0 - 0.3 mg/dL [facility] Blood Venous Draw / Unknown 01/11/2023 3:41 AM EDT 01/11/2023 3:48 AM EDT Narrative Resulting Agency Comment Spec In Lab Abigail Hernandez [employer] CHEMISTRY ORDERABLE S [facility] [place] [address] * (ABNORMAL) Differential, Automated (01/11/2023 3:41 AM EDT) Neutrophils % 66.2 % [facility] Neutr Abs (ANC) 5.49 1.70 - 6.10 x10(3)/mc L [facility] Lymphocytes % 20.8 % [facility] Lymphocytes Abs 1.7 0.9 - 3.2 x10(3)/mc L [facility] Monocytes % 8.6 % [facility] Monocyte Abs 0.7 0.3 - 0.9 x10(3)/mc L [facility] Eosinophils % 3.4 % [facility] Eosinophils Abs 0.3 0.0 - 0.4 x10(3)/mc L [facility] Basophils % 0.4 % [facility] Basophils Abs 0.0 0.0 - 0.1 x10(3)/mc L [facility] Immature Gran % 0.60 % [facility] Comment: Immature granulocytes(IG's)percentage and absolute count will include metamyelocytes, myelocytes, and promyelocytes. Blood smears from CBCs yielding IG's will be scanned manually for concordance. If this scan disagrees with the automated IG or if promyelocytes are noted, a manual differential will be performed. Jaqueline Gran Abs 0.05(H) 0.00 - 0.04 x10(3)/ L [facility] Blood 01/11/2023 3:41 AM EDT 01/11/2023 3:46 AM EDT Narrative Resulting Agency Comment Spec In Lab Nolan Ardon MD HEMATOLOGY ORDERABLE S [facility] [place] [address] * (ABNORMAL) Hemogram (01/11/2023 3:41 AM EDT) WBC 8.3 4.0 - 9.5 x10(3)/[facility] RBC 3.81(L) 4.00 - 5.21 x10(6)/[facility] Hemoglobin 10.3(L) 11.7 - 15.5 g/dL [facility] Hematocrit 32.5(L) 35.7 - 45.8 % [facility] MCV 85.3 82.6 - 94.4 fL [facility] MCH 27.0(L) 27.1 - 32.0 pg [facility] MCHC 31.7 31.7 - 35.0 g/dL [facility] Platelets 305 145 - 357 x10(3)/[facility] RDWSD 47.5(H) 37.0 - 46.0 [facility] RDWCV 15.2(H) 11.5 - 14.1 % [facility] MPV 8.8 7.6 - 12.9 [facility] nRBC % Auto 0.0 % [facility] nRBC Abs Auto 0.000 0.000 - 0.000 x10(3)/[facility] Blood 01/11/2023 3:41 AM EDT 01/11/2023 3:46 AM EDT Narrative Resulting Agency Comment Spec In Lab Nolan Ardon MD HEMATOLOGY ORDERABLE S Performing Organization Address City/[facility] Co de Phone Number [facility] [place] [address] * Phosphorus (01/11/2023 3:41 AM EDT) Phosphorus 4.2 2.5 - 4.5 mg/dL [facility] Blood 01/11/2023 3:41 AM EDT 01/11/2023 3:46 AM EDT Narrative Resulting Agency Comment Spec In Lab Fab Cross MD CHEMISTRY ORDERABLES Performing Organization Address [facility] de Phone Number [facility] [place] [address] * Magnesium (01/11/2023 3:41 AM EDT) Magnesium 0.79 0.69 - 1.07 mmol/L [facility] Blood 01/11/2023 3:41 AM EDT 01/11/2023 3:46 AM EDT Narrative Resulting Agency Comment Spec In Lab Fab Cross MD CHEMISTRY ORDERABLES Performing Organization Address [facility] Co de Phone Number [facility] [place] [address] * (ABNORMAL) Basic Metabolic Panel (non-fasting) (01/11/2023 3:41 AM EDT) Glucose Lvl 105 65 - 199 mg/dL [facility] Comment:Diabetes: >=200 mg/d L plus symptoms BUN 10 8 - 18 mg/dL [facility] Creatinine 0.66(L) 0.70 - 1.20 mg/dL [facility] Sodium 139 135 - 145 mmol/L [facility] Potassium 4.0 3.5 - 5.0 mmol/L [facility] Comment: Please note: ??Patients with WBC >100,000 may have falsely elevated Potassium levels. ??For accurate Potassium quantification in these patients send serum separator tube (gold top) for subsequent determinations. ??Contact the Clinical Chemistry Laboratory if there are any questions. Chloride 103 98 - 107 mmol/L [facility] CO2 27 22 - 31 mmol/L [facility] Anion Gap 9 5 - 15 mmol/L [facility] Calcium 8.8 8.5 - 10.5 mg/dL [facility] Estimated GFR 118 >=60 mL/min/1. 73 m?? [facility] Comment: This patient's estimated GFR [...] and symptoms in addition to eGFR. Blood 01/11/2023 3:41 AM EDT 01/11/2023 3:46 AM EDT Narrative Resulting Agency Comment Spec In Lab Fab Cross MD CHEMISTRY ORDERABLES [facility] [place] [address] * (ABNORMAL) CRP, acute inflammation (01/11/2023 3:41 AM EDT) CRP 128.8(H) <=4.9 mg/L [facility] Blood 01/11/2023 3:41 AM EDT 01/11/2023 3:46 AM EDT Narrative Resulting Agency Comment Spec In Lab Jose Galvez APRN CHEMISTRY ORDERAB LES Performing Organization Address [facility] [place] [address] * EKG 12 Lead (01/10/2023 5:51 PM EDT) Ventricular rate 92 BPM MUSE SYSTEM Atrial Rate 92 BPM MUSE SYSTEM P-R Interval 134 ms MUSE SYSTEM QRS Duration 126 ms MUSE SYSTEM Q-T Interval 380 ms MUSE SYSTEM QTC Calculated (Bezet) 469 ms MUSE SYSTEM Calculated P [place] 56 degrees MUSE SYSTEM Calculated R [place] -3 degrees MUSE SYSTEM Calculated T [place] 17 degrees MUSE SYSTEM INTERPRETATION Normal sinus rhythm Right bundle branch block Abnormal ECG No previous ECGs available Confirmed by MD Brendon, Bethel Almendarez ([id number]) on 01/14/2023 10:20:42 AM MUSE SYSTEM 01/10/2023 5:51 PM EDT 01/14/2023 10:20 AM EDT Jose Willis Leonor SMITH ECG ORDERABLES Performing Organization Address [facility] de Phone Number MUSE SYSTEM * XR Chest One View (01/10/2023 5:25 PM EDT) Anatomical Region Laterality Modality Chest N/A Digital Radiogra phy Impressions 01/11/2023 7:53 AM EDT Right-sided PICC ends at the mid SVC. Normal cardiopulmonary findings. Thank you for letting us participate in the care of this patient. ??If you are a health care provider and have any questions regarding this report, please contact the number below. ??For patients who have questions please contact the health reproductive healthcare assistant that requested your imaging first. ? Electronically signed by: Kacey Hall MD[facility] ([phone]), at 01/11/2023 7:53 AM Narrative 01/11/2023 7:53 AM EDT EXAMINATION: XR CHEST ONE VIEW CLINICAL HISTORY: Verification of proper PICC placement TECHNIQUE: 1 view of the chest COMPARISON: 01/03/2023. FINDINGS: Right-sided PICC ends at the mid SVC. Lungs are clear. No pleural effusion. Normal size of the heart and normal width of the mediastinum. Osseous structures are unremarkable. Procedure Note Kacey Wilhelm MD - 01/11/2023 EXAMINATION: XR CHEST ONE VIEW CLINICAL HISTORY: Verification of proper PICC placement TECHNIQUE: 1 view of the chest COMPARISON: 01/03/2023. FINDINGS: Right-sided PICC ends at the mid SVC. Lungs are clear. No pleural effusion. Normal size of the heart and normalwidth of the mediastinum. Osseous structures are unremarkable. IMPRESSION Right-sided PICC ends at the mid SVC. Normal cardiopulmonary findings. Thank you for letting us participate in the care of this patient. If youare a health care provider and have any questions regarding this report,please contact the number below. For patients who have questions please contactthe health reproductive healthcare assistant that requested your imaging first. Electronically signed by: Kacey Hall [facility] ([phone]), at 01/11/2023 7:53 AM Jose Galvez [employer]ORE CHECK[employer] IMG DX ORDERABLES * (ABNORMAL) Differential, Automated (01/10/2023 1:15 AM EDT) Neutrophils % 64.2 % [facility] Neutr Abs (ANC) 4.32 1.70 - 6.10 x10(3)/mc L [facility] Lymphocytes % 23.7 % [facility] Lymphocytes Abs 1.6 0.9 - 3.2 x10(3)/mc L [facility] Monocytes % 8.3 % [facility] Monocyte Abs 0.6 0.3 - 0.9 x10(3)/mc L [facility] Eosinophils % 2.8 % [facility] Eosinophils Abs 0.2 0.0 - 0.4 x10(3)/[facility] Basophils % 0.3 % [facility] Basophils Abs 0.0 0.0 - 0.1 x10(3)/[facility] Immature Gran % 0.70 % [facility] Comment: Immature granulocytes(IG's)percentage and absolute count will include metamyelocytes, myelocytes, and promyelocytes. Blood smears from CBCs yielding IG's will be scanned manually for concordance. If this scan disagrees with the automated IG or if promyelocytes are noted, a manual differential will be performed. Jaqueline Gran Abs 0.05(H) 0.00 - 0.04 x10(3)/[facility] Blood 01/10/2023 1:15 AM EDT 01/10/2023 1:33 AM EDT Narrative Resulting Agency Comment Spec In Lab Nolan Ardon MD HEMATOLOGY ORDERABLE S [facility] [place] [address] * (ABNORMAL) Hemogram (01/10/2023 1:15 AM EDT) WBC 6.7 4.0 - 9.5 x10(3)/[facility] RBC 3.48(L) 4.00 - 5.21 x10(6)/[facility] Hemoglobin 9.5(L) 11.7 - 15.5 g/dL [facility] Hematocrit 30.0(L) 35.7 - 45.8 % [facility] MCV 86.2 82.6 - 94.4 fL [facility] MCH 27.3 27.1 - 32.0 pg [facility] MCHC 31.7 31.7 - 35.0 g/dL [facility] Platelets 226 145 - 357 x10(3)/[facility] RDWSD 48.6(H) 37.0 - 46.0 fL [facility] RDWCV 15.2(H) 11.5 - 14.1 % [facility] MPV 9.0 7.6 - 12.9 fL [facility] nRBC % Auto 0.0 % [facility] nRBC Abs Auto 0.000 0.000 - 0.000 x10(3)/[facility] Blood 01/10/2023 1:15 AM EDT 01/10/2023 1:33 AM EDT Narrative Resulting Agency Comment Spec In Lab Nolan Ardon MD HEMATOLOGY ORDERABLE S Performing Organization Address [facility] Co de Phone Number [facility] [place] [address] * (ABNORMAL) Phosphorus (01/10/2023 1:15 AM EDT) Phosphorus 4.6(H) 2.5 - 4.5 mg/dL [facility] Blood 01/10/2023 1:15 AM EDT 01/10/2023 1:33 AM EDT Narrative Resulting Agency Comment Spec In Lab Fab Cross MD CHEMISTRY ORDERABLES Performing Organization Address [facility] Co de Phone Number [facility] [place] [address] * Magnesium (01/10/2023 1:15 AM EDT) Magnesium 0.77 0.69 - 1.07 mmol/L [facility] Blood 01/10/2023 1:15 AM EDT 01/10/2023 1:33 AM EDT Narrative Resulting Agency Comment Spec In Lab Fab Cross MD CHEMISTRY ORDERABLES Performing Organization Address [facility]/ZIP Co de Phone Number [facility] [place] [address] * (ABNORMAL) Basic Metabolic Panel (non-fasting) (01/10/2023 1:15 AM EDT) Glucose Lvl 108 65 - 199 mg/dL [facility] Comment:Diabetes: >=200 mg/d L plus symptoms BUN 7(L) 8 - 18 mg/dL [facility] Creatinine 0.61(L) 0.70 - 1.20 mg/dL [facility] Sodium 142 135 - 145 mmol/L [facility] Potassium 3.5 3.5 - 5.0 mmol/L [facility] Comment: Please note: ??Patients with WBC >100,000 may have falsely elevated Potassium levels. ??For accurate Potassium quantification in these patients send serum separator tube (gold top) for subsequent determinations. ??Contact the Clinical Chemistry Laboratory if there are any questions. Chloride 106 98 - 107 mmol/L [facility] CO2 28 22 - 31 mmol/L [facility] Anion Gap 8 5 - 15 mmol/L [facility] Calcium 8.4(L) 8.5 - 10.5 mg/dL [facility] Estimated GFR 120 >=60 mL/min/1. 73 m?? [facility] Comment: This patient's estimated GFR [...] and symptoms in addition to eGFR. Blood 01/10/2023 1:15 AM EDT 01/10/2023 1:33 AM EDT Narrative Resulting Agency Comment Spec In Lab Fab Cross MD CHEMISTRY ORDERABLES Performing Organization Address [facility] Co de Phone Number [facility] [place] [address] * Blood culture (01/09/2023 3:09 PM EDT) Blood Culture No growth at 5 days. [facility] Blood 01/09/2023 3:09 PM EDT 01/09/2023 4:45 PM EDT Comment:L Arm Narrative Resulting Agency Comment Spec In Lab Eyal Robbins MD MICROBIOLOGY - BLO OD ORDERABLES Performing Organization Address [place] [facility] Co de Phone Number [facility] [place] [address] * Blood culture (01/09/2023 3:09 PM EDT) Blood Culture No growth at 5 days. [facility] Blood 01/09/2023 3:09 PM EDT 01/09/2023 4:43 PM EDT Comment:R Arm Narrative Resulting Agency Comment Spec In Lab Eyal Robbins MD MICROBIOLOGY - BLO OD ORDERABLES Performing Organization Address [facility] Co de Phone Number [facility] [place] [address] * Vancomycin Level, Random (01/09/2023 11:40 AM EDT) Vanco Lvl 6-14 hr Post 15.4 mg/L [facility] Comment: This level is for determination of the patient's vancomycin tozx-kmwsw-lwx-curve (AUC) value. Contact the inpatient pharmacy for interpretation. Blood 01/09/2023 11:4 0 AM EDT 01/09/2023 11:52 AM EDT Eyal Robbins MD CHEMISTRY ORDERABL ES Performing Organization Address [facility] Co de Phone Number [facility] [place] [address] * (ABNORMAL) Sedimentation rate (01/09/2023 9:45 AM EDT) [facility] Sed Rate 117(H) 2 - 37 mm/hr [facility] Comment: Effective May 27, 2019 new capillary photometric technology has resulted in a change in reference ranges. It is recommended that each ESR result be reviewed with its own age appropriate reference range. Blood 01/09/2023 9:45 AM EDT 01/09/2023 9:54 AM EDT Narrative Resulting Agency Comment Spec In Lab Eyal Robbins MD HEMATOLOGY ORDERAB LES Performing Organization Address [facility]/ZIP Co de Phone Number [facility] [place] [address] * (ABNORMAL) CRP, acute inflammation (01/09/2023 9:45 AM EDT) [facility] CRP 215.4(H) <=4.9 mg/L [facility] Blood 01/09/2023 9:45 AM EDT 01/09/2023 9:54 AM EDT Narrative Resulting Agency Comment Spec In Lab Eyal Robbins MD CHEMISTRY ORDERABL ES Performing Organization Address [facility] Co de Phone Number [facility] [place] [address] * (ABNORMAL) Hepatic Function Panel (01/09/2023 1:42 AM EDT) [facility] Total Protein 6.3 6.1 - 8.0 g/dL [facility] Albumin 3.0(L) 3.2 - 5.2 g/dL [facility] AST 22 0 - 30 unit/L [facility] ALT 51(H) 0 - 30 unit/L [facility] Alk Phos 137(H) 35 - 105 unit/L [facility] Total Bilirubin <0.2(L) 0.2 - 1.3 mg/dL [facility] Bili, Direct 0.1 0.0 - 0.3 mg/dL [facility] Blood Venous Draw / Unknown 01/09/2023 1:42 AM EDT 01/09/2023 1:58 AM EDT Narrative Resulting Agency Comment Spec In Lab Abigail Hernandez SALES STORE CHECKER CHEMISTRY ORDERABLE S [facility] [place] [address] * (ABNORMAL) Differential, Automated (01/09/2023 1:42 AM EDT) Neutrophils % 76.3 % [facility] Neutr Abs (ANC) 7.75(H) 1.70 - 6.10 x10(3)/[facility] Lymphocytes % 16.2 % [facility] Lymphocytes Abs 1.6 0.9 - 3.2 x10(3)/[facility] Monocytes % 6.2 % [facility] Monocyte Abs 0.6 0.3 - 0.9 x10(3)/[facility] Eosinophils % 0.7 % [facility] Eosinophils Abs 0.1 0.0 - 0.4 x10(3)/[facility] Basophils % 0.2 % [facility] Basophils Abs 0.0 0.0 - 0.1 x10(3)/[facility] Immature Gran % 0.40 % [facility] Comment: Immature granulocytes(IG's)percentage and absolute count will include metamyelocytes, myelocytes, and promyelocytes. Blood smears from CBCs yielding IG's will be scanned manually for concordance. If this scan disagrees with the automated IG or if promyelocytes are noted, a manual differential will be performed. Jaqueline Gran Abs 0.04 0.00 - 0.04 x10(3)/mc L [facility] Blood 01/09/2023 1:42 AM EDT 01/09/2023 1:54 AM EDT Narrative Resulting Agency Comment Spec In Lab Nolan Ardon MD HEMATOLOGY ORDERABLE S [facility] [place] [address] * (ABNORMAL) Hemogram (01/09/2023 1:42 AM EDT) WBC 10.2(H) 4.0 - 9.5 x10(3)/[facility] LAB[facility] RBC 3.72(L) 4.00 - 5.21 x10(6)/[facility] Hemoglobin 10.3(L) 11.7 - 15.5 g/dL [facility] Hematocrit 31.5(L) 35.7 - 45.8 % [facility] MCV 84.7 82.6 - 94.4 [facility] MCH 27.7 27.1 - 32.0 pg [facility] MCHC 32.7 31.7 - 35.0 g/dL [facility] Platelets 206 145 - 357 x10(3)/[facility] RDWSD 46.5(H) 37.0 - 46.0 [facility] RDWCV 15.1(H) 11.5 - 14.1 % [facility] MPV 9.3 7.6 - 12.9 [facility] nRBC % Auto 0.0 % [facility] nRBC Abs Auto 0.000 0.000 - 0.000 x10(3)/[facility] Blood 01/09/2023 1:42 AM EDT 01/09/2023 1:54 AM EDT Narrative Resulting Agency Comment Spec In Lab Nolan Ardon MD HEMATOLOGY ORDERABLE S [facility] [place] [address] * (ABNORMAL) Phosphorus (01/09/2023 1:42 AM EDT) Phosphorus 4.6(H) 2.5 - 4.5 mg/dL [facility] Blood 01/09/2023 1:42 AM EDT 01/09/2023 1:54 AM EDT Narrative Resulting Agency Comment Spec In Lab Fab Cross MD CHEMISTRY ORDERABLES Performing Organization Address City/[facility]/ZIP Co de Phone Number [facility] [place] [address] * Magnesium (01/09/2023 1:42 AM EDT) Pathologist [facility] Magnesium 0.76 0.69 - 1.07 mmol/L [facility] Blood 01/09/2023 1:42 AM EDT 01/09/2023 1:54 AM EDT Narrative Resulting Agency Comment Spec In Lab Fab Cross MD CHEMISTRY ORDERABLES Performing Organization Address City/[facility]/ZIP Co de Phone Number [facility] [place] [address] * (ABNORMAL) Basic Metabolic Panel (non-fasting) (01/09/2023 1:42 AM EDT) Pathologist [facility] Glucose Lvl 103 65 - 199 mg/dL [facility] Comment:Diabetes: >=200 mg/d L plus symptoms BUN 5(L) 8 - 18 mg/dL [facility] Creatinine 0.64(L) 0.70 - 1.20 mg/dL [facility] Sodium 142 135 - 145 mmol/L [facility] Potassium 3.5 3.5 - 5.0 mmol/L [facility] Comment: Please note: ??Patients with WBC >100,000 may have falsely elevated Potassium levels. ??For accurate Potassium quantification in these patients send serum separator tube (gold top) for subsequent determinations. ??Contact the Clinical Chemistry Laboratory if there are any questions. Chloride 105 98 - 107 mmol/L [facility] CO2 27 22 - 31 mmol/L [facility] Anion Gap 10 5 - 15 mmol/L [facility] Calcium 8.6 8.5 - 10.5 mg/dL [facility] Estimated GFR 119 >=60 mL/min/1. 73 m?? [facility] Comment: This patient's estimated GFR [...] and symptoms in addition to eGFR. Blood 01/09/2023 1:42 AM EDT 01/09/2023 1:54 AM EDT Narrative Resulting Agency Comment Spec In Lab Fab Cross MD CHEMISTRY ORDERABLES Performing Organization Address [facility] Co de Phone Number [facility] [place] [address] * Blood culture (01/08/2023 1:07 AM EDT) Blood Culture No growth at 5 days. [facility] Blood 01/08/2023 1:07 AM EDT 01/08/2023 2:25 AM EDT Comment:R hand Narrative Resulting Agency Comment Spec In Lab Eyal Robbins MD MICROBIOLOGY - BLO OD ORDERABLES Performing Organization Address [facility] Co de Phone Number [facility] [place] [address] * Blood culture (01/08/2023 1:06 AM EDT) Blood Culture No growth at 5 days. [facility] Blood 01/08/2023 1:06 AM EDT 01/08/2023 2:29 AM EDT Comment:L hand Narrative Resulting Agency Comment Spec In Lab Eyal Robbins MD MICROBIOLOGY - BLO OD ORDERABLES [facility] [place] [address] * Differential, Automated (01/08/2023 12:25 AM EDT) Neutrophils % 77.8 % [facility] Neutr Abs (ANC) 5.84 1.70 - 6.10 x10(3)/[facility] Lymphocytes % 13.8 % [facility] Lymphocytes Abs 1.0 0.9 - 3.2 x10(3)/[facility] Monocytes % 7.1 % [facility] Monocyte Abs 0.5 0.3 - 0.9 x10(3)/[facility] Eosinophils % 0.9 % [facility] Eosinophils Abs 0.1 0.0 - 0.4 x10(3)/[facility] Basophils % 0.1 % [facility] Basophils Abs 0.0 0.0 - 0.1 x10(3)/[facility] Immature Gran % 0.30 % [facility] Comment: Immature granulocytes(IG's)percentage and absolute count will include metamyelocytes, myelocytes, and promyelocytes. Blood smears from CBCs yielding IG's will be scanned manually for concordance. If this scan disagrees with the automated IG or if promyelocytes are noted, a manual differential will be performed. Jaqueline Gran Abs 0.02 0.00 - 0.04 x10(3)/[facility] Blood 01/08/2023 12:2 5 AM EDT 01/08/2023 12:36 AM EDT Narrative Resulting Agency Comment Spec In Lab Nolan Ardon MD HEMATOLOGY ORDERABLE S [facility] [place] [address] * (ABNORMAL) Hemogram (01/08/2023 12:25 AM EDT) Pathologist [facility] WBC 7.5 4.0 - 9.5 x10(3)/[facility] RBC 3.60(L) 4.00 - 5.21 x10(6)/[facility] Hemoglobin 9.8(L) 11.7 - 15.5 g/dL [facility] Hematocrit 30.8(L) 35.7 - 45.8 % [facility] MCV 85.6 82.6 - 94.4 fL [facility] MCH 27.2 27.1 - 32.0 pg [facility] MCHC 31.8 31.7 - 35.0 g/dL [facility] Platelets 159 145 - 357 x10(3)/[facility] RDWSD 47.4(H) 37.0 - 46.0 [facility] RDWCV 15.1(H) 11.5 - 14.1 % [facility] MPV 9.2 7.6 - 12.9 [facility] nRBC % Auto 0.0 % [facility] nRBC Abs Auto 0.000 0.000 - 0.000 x10(3)/[facility] Blood 01/08/2023 12:2 5 AM EDT 01/08/2023 12:36 AM EDT Narrative Resulting Agency Comment Spec In Lab Nolan Ardon MD HEMATOLOGY ORDERABLE S [facility] [place] [address] * Phosphorus (01/08/2023 12:25 AM EDT) Pathologist [facility] Phosphorus 3.6 2.5 - 4.5 mg/dL [facility] Blood 01/08/2023 12:2 5 AM EDT 01/08/2023 12:36 AM EDT Narrative Resulting Agency Comment Spec In Lab Fab Cross MD CHEMISTRY ORDERABLES Performing Organization Address [facility] Co de Phone Number [facility] [place] [address] * Magnesium (01/08/2023 12:25 AM EDT) [facility] Magnesium 0.77 0.69 - 1.07 mmol/L [facility] Blood 01/08/2023 12:2 5 AM EDT 01/08/2023 12:36 AM EDT Narrative Resulting Agency Comment Spec In Lab Fab Cross MD CHEMISTRY ORDERABLES Performing Organization Address [facility] Co de Phone Number [facility] [place] [address] * (ABNORMAL) Basic Metabolic Panel (non-fasting) (01/08/2023 12:25 AM EDT) [facility] Glucose Lvl 109 65 - 199 mg/dL [facility] Comment:Diabetes: >=200 mg/d L plus symptoms BUN 8 8 - 18 mg/dL [facility] Creatinine 0.63(L) 0.70 - 1.20 mg/dL [facility] Sodium 142 135 - 145 mmol/L [facility] Potassium 3.7 3.5 - 5.0 mmol/L [facility] Comment: Please note: ??Patients with WBC >100,000 may have falsely elevated Potassium levels. ??For accurate Potassium quantification in these patients send serum separator tube (gold top) for subsequent determinations. ??Contact the Clinical Chemistry Laboratory if there are any questions. Chloride 106 98 - 107 mmol/L [facility] CO2 26 22 - 31 mmol/L [facility] Anion Gap 10 5 - 15 mmol/L [facility] Calcium 8.3(L) 8.5 - 10.5 mg/dL [facility] Estimated GFR 119 >=60 mL/min/1. 73 m?? [facility] Comment: This patient's estimated GFR [...] and symptoms in addition to eGFR. Blood 01/08/2023 12:2 5 AM EDT 01/08/2023 12:36 AM EDT Narrative Resulting Agency Comment Spec In Lab Fab Cross MD CHEMISTRY ORDERABLES [facility] [place] [address] * Place PICC Line: Contact Vascular Access Page [phone] Extremity to exclude: No restrictions; Is PICC procedure required PRIOR to patients discharge? Yes (01/07/2023 11:09 AM EDT) Narrative Dat Alvarado RN - 01/07/2023 11:09 AM EDT Dat Alvarado RN ? 01/07/2023 11:11 AM PICC/Midline Insertion Procedure Note Indications: Access This insertion was not to replace a malfunctioning catheter. This insertion was not due to a suspected line-associated infection. Location of Procedure: X-Ray Room 11 Risks and Benefits: The risks and benefits of this procedure were reviewed and informed consent was obtained obtained. Time Out: Prior to the start of the procedure, the patient's identity, intended procedure, site/side, correct patient positioning and presence of the site reji was confirmed as applicable. The medical history and chart were reviewed to rule out potential contraindications to the planned procedure. Hand Hygiene: The product sales engineer did perform hand hygiene prior to line insertion. Catheter type: PICC Lot number: [id number] Procedure Technique: Skin was prepped with chlorhexidine. Skin preparation agent was completely dry at the time of first skin puncture. The following barrier precaution methods were used:large sterile drape, maske/eye shield, large sterile gown, sterile gloves, and cap. 3 ml of 1% Lidocaine was used for skin wheal. Ultrasound was used for guidance. ??Radiographic contrast agent was not injected for vein identification. Procedure Details: Order received for catheter placement. A 5 Fr. double lumen Bard Power catheter was placed into the right basilic vein over a 0.018 inch guidewire using modified seldinger technique and fluoroscopy. Arm circumference was 46 cm at 2 cm above the insertion site. Final catheter length (with trimming): 51 cm Internal: 50 cm External: 1 cm Tip in SVC per Mejia. The line was not placed over a guidewire. Post Procedure: Diagnosis: epidural abscess Blood return noted on aspiration of line after placement confirmed. 5 mls of normal saline infused free flowing to gravity via PICC after insertion. Sterile dressing applied: CHG Impregnated Tegaderm. Findings: The patient did tolerate the procedure well. Complication Details: 2 failed attempts for left side PICC prior to successful right sided placement Procedure Comments: 2 failed attempts to obtain left brachial PICC. ??Successful picc placement in right basilic Dat Alvarado RN 01/07/2023 Abigail Hernandez APRN PROCEDURE/MINOR AARON GICAL ORDERABLES * XR PICC Placement Over 5 Years with Imaging Guidance (IV Team) (01/07/2023 10:48 AM EDT) Anatomical Region Laterality Modality N/A Radio Fluoroscop y Impressions 01/07/2023 11:49 AM EDT Right upper extremity PICC with appropriate placement Thank you for letting us participate in the care of this patient. ??If you are a health care provider and have any questions regarding this report, please contact the number below. ??For patients who have questions please contact the health reproductive healthcare assistant that requested your imaging first. ? Narrative 01/07/2023 11:49 AM EDT EXAMINATION: XR PICC PLACEMENT OVER 5 YEARS WITH IMAGING GUIDANCE (IV TEAM) CLINICAL HISTORY: Confirmation of PICC line placement TECHNIQUE: C-arm placement of PICC line. Limited view of the line tip only. COMPARISON: None FINDINGS: Intraprocedural frontal radiograph of the mediastinum demonstrates a right upper extremity PICC line, with the catheter tip projected at the lower SVC. Procedure Note Ignacio Shin MD - 01/07/2023 EXAMINATION: XR PICC PLACEMENT OVER 5 YEARS WITH IMAGING GUIDANCE (IVTEAM) CLINICAL HISTORY: Confirmation of PICC line placement TECHNIQUE: C-arm placement of PICC line. Limited view of the line tiponly. COMPARISON: None FINDINGS: Intraprocedural frontal radiograph of the mediastinumdemonstrates a right upper extremity PICC line, with the catheter tip projected at thelower SVC. IMPRESSION Right upper extremity PICC with appropriate placement Thank you for letting us participate in the care of this patient. If youare a health care provider and have any questions regarding this report,please contact the number below. For patients who have questions please contactthe health reproductive healthcare assistant that requested your imaging first. Abigail Hernandez SALES STORE CHECKER IMG FLUORO ORDERABL ES * (ABNORMAL) Hepatic Function Panel (01/07/2023 6:11 AM EDT) Total Protein 6.0(L) 6.1 - 8.0 g/dL [facility] Albumin 3.0(L) 3.2 - 5.2 g/dL [facility] AST 73(H) 0 - 30 unit/L [facility] ALT 81(H) 0 - 30 unit/L [facility] Alk Phos 147(H) 35 - 105 unit/L [facility] Total Bilirubin 0.3 0.2 - 1.3 mg/dL [facility] Bili, Direct 0.1 0.0 - 0.3 mg/dL [facility] Blood 01/07/2023 6:11 AM EDT 01/07/2023 6:20 AM EDT Narrative Resulting Agency Comment Spec In Lab Abigail Hernandez APRN CHEMISTRY ORDERABLE S Performing Organization Address [facility] de Phone Number [facility] [place] [address] * Vancomycin Level, Random (01/07/2023 6:11 AM EDT) Vanco Lvl 6-14 hr Post 13.2 mg/L [facility] Comment: This level is for determination of the patient's vancomycin sfpz-wremh-gub-curve (AUC) value. Contact the inpatient pharmacy for interpretation. Blood 01/07/2023 6:11 AM EDT 01/07/2023 6:20 AM EDT Eyal Robbins MD CHEMISTRY ORDERABL ES Performing Organization Address [facility] Co de Phone Number [facility] [place] [address] * Blood culture (01/07/2023 12:51 AM EDT) Blood Culture No growth at 5 days. [facility] Blood 01/07/2023 12:5 1 AM EDT 01/07/2023 1:43 AM EDT Comment:L hand Narrative Resulting Agency Comment Spec In Lab Abigail Hernandez APRN MICROBIOLOGY - BLOO D ORDERABLES Performing Organization Address [facility]/ZIP Co de Phone Number [facility] [place] [address] * (ABNORMAL) Differential, Automated (01/07/2023 12:40 AM EDT) Neutrophils % 77.8 % [facility] Neutr Abs (ANC) 6.00 1.70 - 6.10 x10(3)/ L [facility] Lymphocytes % 14.9 % [facility] Lymphocytes Abs 1.2 0.9 - 3.2 x10(3)/[facility] Monocytes % 5.6 % [facility] Monocyte Abs 0.4 0.3 - 0.9 x10(3)/[facility] Eosinophils % 0.6 % [facility] Eosinophils Abs 0.0 0.0 - 0.4 x10(3)/[facility] Basophils % 0.3 % [facility] Basophils Abs 0.0 0.0 - 0.1 x10(3)/[facility] Immature Gran % 0.80 % [facility] Comment: Immature granulocytes(IG's)percentage and absolute count will include metamyelocytes, myelocytes, and promyelocytes. Blood smears from CBCs yielding IG's will be scanned manually for concordance. If this scan disagrees with the automated IG or if promyelocytes are noted, a manual differential will be performed. Jaqueline Gran Abs 0.06(H) 0.00 - 0.04 x10(3)/ L [facility] Blood 01/07/2023 12:4 0 AM EDT 01/07/2023 12:58 AM EDT Narrative Resulting Agency Comment Spec In Lab Nolan Ardon MD HEMATOLOGY ORDERABLE S Performing Organization Address City/[facility]/ZIP Co de Phone Number [facility] [place] [address] * (ABNORMAL) Hemogram (01/07/2023 12:40 AM EDT) WBC 7.7 4.0 - 9.5 x10(3)/[facility] LAB[facility] RBC 3.71(L) 4.00 - 5.21 x10(6)/[facility] Hemoglobin 10.1(L) 11.7 - 15.5 g/dL [facility] Hematocrit 31.6(L) 35.7 - 45.8 % [facility] MCV 85.2 82.6 - 94.4 fL [facility] MCH 27.2 27.1 - 32.0 pg [facility] MCHC 32.0 31.7 - 35.0 g/dL [facility] Platelets 153 145 - 357 x10(3)/[facility] RDWSD 45.6 37.0 - 46.0 fL [facility] RDWCV 14.6(H) 11.5 - 14.1 % [facility] MPV 9.3 7.6 - 12.9 fL [facility] nRBC % Auto 0.0 % [facility] nRBC Abs Auto 0.000 0.000 - 0.000 x10(3)/[facility] Blood 01/07/2023 12:4 0 AM EDT 01/07/2023 12:58 AM EDT Narrative Resulting Agency Comment Spec In Lab Nolan Ardon MD HEMATOLOGY ORDERABLE S [facility] [place] [address] * Phosphorus (01/07/2023 12:40 AM EDT) Phosphorus 3.3 2.5 - 4.5 mg/dL [facility] Blood 01/07/2023 12:4 0 AM EDT 01/07/2023 12:58 AM EDT Narrative Resulting Agency Comment Spec In Lab Fab Cross MD CHEMISTRY ORDERABLES [facility] [place] [address] * Magnesium (01/07/2023 12:40 AM EDT) [facility] Magnesium 0.80 0.69 - 1.07 mmol/L [facility] Blood 01/07/2023 12:4 0 AM EDT 01/07/2023 12:58 AM EDT Narrative Resulting Agency Comment Spec In Lab Fab Cross MD CHEMISTRY ORDERABLES Performing Organization Address [facility] Co de Phone Number [facility] [place] [address] * (ABNORMAL) Basic Metabolic Panel (non-fasting) (01/07/2023 12:40 AM EDT) [facility] Glucose Lvl 158 65 - 199 mg/dL [facility] Comment:Diabetes: >=200 mg/d L plus symptoms BUN 9 8 - 18 mg/dL [facility] Creatinine 0.65(L) 0.70 - 1.20 mg/dL [facility] Sodium 142 135 - 145 mmol/L [facility] Potassium 3.0(Criti brown) 3.5 - 5.0 mmol/L [facility] Comment: called by [facility]/read back by michael wilkerson/ 01-07-23 0132 Please note: ??Patients with WBC >100,000 may have falsely elevated Potassium levels. ??For accurate Potassium quantification in these patients send serum separator tube (gold top) for subsequent determinations. ??Contact the Clinical Chemistry Laboratory if there are any questions. Chloride 108(H) 98 - 107 mmol/L [facility] CO2 24 22 - 31 mmol/L [facility] Anion Gap 10 5 - 15 mmol/L [facility] Calcium 8.3(L) 8.5 - 10.5 mg/dL [facility] Estimated GFR 118 >=60 mL/min/1. 73 m?? [facility] Comment: This patient's estimated GFR [...] and symptoms in addition to eGFR. Blood 01/07/2023 12:4 0 AM EDT 01/07/2023 12:58 AM EDT Narrative Resulting Agency Comment Spec In Lab Fab Cross MD CHEMISTRY ORDERABLES Performing Organization Address [facility]/ZIP Co de Phone Number [facility] [place] [address] * Blood culture (01/07/2023 12:40 AM EDT) Blood Culture No growth at 5 days. [facility] Blood 01/07/2023 12:4 0 AM EDT 01/07/2023 1:43 AM EDT Comment:R hand Narrative Resulting Agency Comment Spec In Lab Abigail Hernandez APRN MICROBIOLOGY - BLOO D ORDERABLES Performing Organization Address City/[facility]/ZIP Co de Phone Number [facility] [place] [address] * Blood culture (01/06/2023 10:30 AM EDT) Blood Culture No growth at 5 days. [facility] Blood STRUCTURE OF LEFT HAND / Unknown 01/06/2023 10:30 AM EDT 01/06/2023 12:28 PM EDT Comment:#2 AER ONLY Narrative Resulting Agency Comment Spec In Lab Abigail Hernandez SALES STORE CHECKER MICROBIOLOGY - BLOO D ORDERABLES [facility] [place] [address] * Blood culture (01/06/2023 10:17 AM EDT) Blood Culture No growth at 5 days. [facility] Blood STRUCTURE OF RIGHT HAND / Unknown 01/06/2023 10:17 AM EDT 01/06/2023 12:28 PM EDT Comment:#1 AER ONLY Narrative Resulting Agency Comment Spec In Lab Abigail Hernandez SALES STORE CHECKER MICROBIOLOGY - BLOO D ORDERABLES Performing Organization Address City/[facility]/ZIP Co de Phone Number [facility] [place] [address] * Differential, Automated (01/06/2023 6:48 AM EDT) Neutrophils % 73.5 % [facility] Neutr Abs (ANC) 4.75 1.70 - 6.10 x10(3)/[facility] Lymphocytes % 17.5 % [facility] Lymphocytes Abs 1.1 0.9 - 3.2 x10(3)/[facility] Monocytes % 7.9 % [facility] Monocyte Abs 0.5 0.3 - 0.9 x10(3)/[facility] Eosinophils % 0.5 % [facility] Eosinophils Abs 0.0 0.0 - 0.4 x10(3)/[facility] Basophils % 0.3 % [facility] Basophils Abs 0.0 0.0 - 0.1 x10(3)/[facility] Immature Gran % 0.30 % [facility] Comment: Immature granulocytes(IG's)percentage and absolute count will include metamyelocytes, myelocytes, and promyelocytes. Blood smears from CBCs yielding IG's will be scanned manually for concordance. If this scan disagrees with the automated IG or if promyelocytes are noted, a manual differential will be performed. Jaqueline Gran Abs 0.02 0.00 - 0.04 x10(3)/[facility] Blood 01/06/2023 6:48 AM EDT 01/06/2023 6:54 AM EDT Narrative Resulting Agency Comment Spec In Lab Nolan Ardon MD HEMATOLOGY ORDERABLE S [facility] [place] [address] * (ABNORMAL) Hemogram (01/06/2023 6:48 AM EDT) WBC 6.5 4.0 - 9.5 x10(3)/[facility] RBC 3.76(L) 4.00 - 5.21 x10(6)/[facility] Hemoglobin 10.4(L) 11.7 - 15.5 g/dL [facility] Hematocrit 32.7(L) 35.7 - 45.8 % [facility] MCV 87.0 82.6 - 94.4 fL [facility] MCH 27.7 27.1 - 32.0 pg [facility] MCHC 31.8 31.7 - 35.0 g/dL [facility] Platelets 115(L) 145 - 357 x10(3)/[facility] RDWSD 46.3(H) 37.0 - 46.0 [facility] RDWCV 14.6(H) 11.5 - 14.1 % [facility] MPV 9.7 7.6 - 12.9 [facility] nRBC % Auto 0.0 % [facility] nRBC Abs Auto 0.000 0.000 - 0.000 x10(3)/[facility] Blood 01/06/2023 6:48 AM EDT 01/06/2023 6:54 AM EDT Narrative Resulting Agency Comment Spec In Lab Nolan Ardon MD HEMATOLOGY ORDERABLE S Performing Organization Address City/[facility]/ZIP Co de Phone Number [facility] [place] [address] * Phosphorus (01/06/2023 6:48 AM EDT) Phosphorus 3.5 2.5 - 4.5 mg/dL [facility] Blood 01/06/2023 6:48 AM EDT 01/06/2023 6:54 AM EDT Narrative Resulting Agency Comment Spec In Lab Fab Cross MD CHEMISTRY ORDERABLES Performing Organization Address [facility] Co de Phone Number [facility] [place] [address] * Magnesium (01/06/2023 6:48 AM EDT) Magnesium 0.86 0.69 - 1.07 mmol/L [facility] Blood 01/06/2023 6:48 AM EDT 01/06/2023 6:54 AM EDT Narrative Resulting Agency Comment Spec In Lab Fab Cross MD CHEMISTRY ORDERABLES Performing Organization Address [facility] Co de Phone Number [facility] [place] [address] * (ABNORMAL) Basic Metabolic Panel (non-fasting) (01/06/2023 6:48 AM EDT) Glucose Lvl 89 65 - 199 mg/dL [facility] Comment:Diabetes: >=200 mg/d L plus symptoms BUN 16 8 - 18 mg/dL [facility] Creatinine 0.66(L) 0.70 - 1.20 mg/dL [facility] Sodium 138 135 - 145 mmol/L [facility] Potassium 3.6 3.5 - 5.0 mmol/L [facility] Comment: Please note: ??Patients with WBC >100,000 may have falsely elevated Potassium levels. ??For accurate Potassium quantification in these patients send serum separator tube (gold top) for subsequent determinations. ??Contact the Clinical Chemistry Laboratory if there are any questions. Chloride 105 98 - 107 mmol/L [facility] CO2 22 22 - 31 mmol/L [facility] Anion Gap 11 5 - 15 mmol/L [facility] Calcium 8.3(L) 8.5 - 10.5 mg/dL [facility] Estimated GFR 118 >=60 mL/min/1. 73 m?? [facility] Comment: This patient's estimated GFR [...] and symptoms in addition to eGFR. Blood 01/06/2023 6:48 AM EDT 01/06/2023 6:54 AM EDT Narrative Resulting Agency Comment Spec In Lab Fab Cross MD CHEMISTRY ORDERABLES [facility] [place] [address] * HIV Screen, 4th Generation ([facility]/CGP/APD/NLH) (01/05/2023 2:20 PM EDT) [facility] HIV-1/2 Ab and Ag Negative Negative [facility] Comment: This 4th Generation HIV [...] HIV Comment Low Risk of HIV Infection [facility] Blood 01/05/2023 2:20 PM EDT 01/05/2023 2:28 PM EDT Narrative Resulting Agency Comment Spec In Lab Eyal Robbins MD IMMUNOLOGY ORDERAB LES Performing Organization Address [facility] Co de Phone Number [facility] [address] * Hepatitis C Antibody (01/05/2023 2:20 PM EDT) Hepatitis C Ab Negative Negative [facility] Blood 01/05/2023 2:20 PM EDT 01/05/2023 2:28 PM EDT Narrative Resulting Agency Comment Spec In Lab Eyal Robbins MD IMMUNOLOGY ORDERAB LES Performing Organization Address [facility] de Phone Number [facility] [place] [address] * Hepatitis B Core Antibody, Total (01/05/2023 2:20 PM EDT) Hep B Core Ab Negative Negative [facility] Blood 01/05/2023 2:20 PM EDT 01/05/2023 2:28 PM EDT Narrative Resulting Agency Comment Spec In Lab Eyal Robbins MD CHEMISTRY ORDERABL ES Performing Organization Address [facility] Co de Phone Number [facility] [place] [address] * Hepatitis B Surface Antigen (01/05/2023 2:20 PM EDT) HepB Surface Ag Negative Negative [facility] Blood 01/05/2023 2:20 PM EDT 01/05/2023 2:28 PM EDT Narrative Resulting Agency Comment Spec In Lab Eyal Robbins MD CHEMISTRY ORDERABL ES Performing Organization Address [facility] de Phone Number [facility] [place] [address] * Hepatitis B Surface Antibody (01/05/2023 2:20 PM EDT) HepB Surface Ab Quant <3.5 IU/L [facility] Comment: HepB Surface Ab Quant: Unvaccinated: < 8.5 IU/L Vaccinated: >= 11.5 IU/L HepB Surface Ab Negative [facility] Comment: Patient is presumed to be not vaccinated or immune to HBV infection. Expected Results: Vaccinated: Positive Unvaccinated: Negative Blood 01/05/2023 2:20 PM EDT 01/05/2023 2:28 PM EDT Narrative Resulting Agency Comment Spec In Lab Eyal Robbins MD IMMUNOLOGY ORDERAB LES Performing Organization Address [facility] Phone Number [facility] [place] [address] * (ABNORMAL) CRP, acute inflammation (01/05/2023 2:20 PM EDT) CRP 225.4(H) <=4.9 mg/L [facility] Blood 01/05/2023 2:20 PM EDT 01/05/2023 2:28 PM EDT Narrative Resulting Agency Comment Spec In Lab Eyal Robbins MD CHEMISTRY ORDERABL ES Performing Organization Address [facility] Co de Phone Number [facility] [place] [address] * (ABNORMAL) Sedimentation rate (01/05/2023 2:20 PM EDT) Sed Rate >119(H) 2 - 37 mm/hr [facility] Comment: Effective May 27, 2019 new capillary photometric technology has resulted in a change in reference ranges. It is recommended that each ESR result be reviewed with its own age appropriate reference range. Blood 01/05/2023 2:20 PM EDT 01/05/2023 2:28 PM EDT Narrative Resulting Agency Comment Spec In Lab Eyal Robbins MD HEMATOLOGY ORDERAB LES Performing Organization Address [facility] de Phone Number [facility] [place] [address] * Vancomycin Level, Random (01/05/2023 2:20 PM EDT) Vanco Lvl 6-14 hr Post 8.6 mg/L [facility] Comment: This level is for determination of the patient's vancomycin nbwp-pixkn-vfq-curve (AUC) value. Contact the inpatient pharmacy for interpretation. Blood 01/05/2023 2:20 PM EDT 01/05/2023 2:28 PM EDT Farooq Thurman MD CHEMISTRY ORDERABLES Performing Organization Address [facility] de Phone Number [facility] [place] [address] * XR Knee 1-2 Views Right (Generic) (01/05/2023 1:26 PM EDT) Anatomical Region Laterality Modality Knee Right Digital Radiogra phy Impressions 01/05/2023 1:52 PM EDT Moderate right knee osteoarthropathy without acute abnormality. Thank you for letting us participate in the care of this patient. ??If you are a health care provider and have any questions regarding this report, please contact the number below. ??For patients who have questions please contact the health reproductive healthcare assistant that requested your imaging first. ? Narrative 01/05/2023 1:52 PM EDT EXAMINATION: XR KNEE 1-2 VIEWS RIGHT (GENERIC) CLINICAL HISTORY: right knee pain, concern for septic joint in setting of MRSA bacteremia TECHNIQUE: AP and lateral views RIGHT knee COMPARISON: None FINDINGS: Bones are intact with normal mineralization. No erosion or periostitis. Mild tricompartmental joint space narrowing is accompanied by marginal osteophytes. No effusion. No focal soft tissue abnormality. Procedure Note Phyllis Shin MD - 01/05/2023 EXAMINATION: XR KNEE 1-2 VIEWS RIGHT (GENERIC) CLINICAL HISTORY: right knee pain, concern for septic joint in setting ofMRSA bacteremia TECHNIQUE: AP and lateral views RIGHT knee COMPARISON: None FINDINGS: Bones are intact with normal mineralization. No erosion or periostitis. Mild tricompartmental joint space narrowing is accompanied by marginal osteophytes. No effusion. No focal soft tissue abnormality. IMPRESSION Moderate right knee osteoarthropathy without acute abnormality. Thank you for letting us participate in the care of this patient. If youare a health care provider and have any questions regarding this report,please contact the number below. For patients who have questions please contactthe health reproductive healthcare assistant that requested your imaging first. Electronically signed by: Phyllis Shin MD[facility]([phone]), at 01/05/2023 1:52 PM Eyal Robbins MD IMG DX ORDERABLES * Blood culture (01/05/2023 9:20 AM EDT) Blood Culture No growth at 5 days. [facility] Blood STRUCTURE OF RIGHT UPPER LIMB / Unknown 01/05/2023 9:20 AM EDT 01/05/2023 9:53 AM EDT Comment:#2 Narrative Resulting Agency Comment Spec In Lab Eyal Robbins MD MICROBIOLOGY - BLO OD ORDERABLES [facility] [place] [address] * Blood culture (01/05/2023 9:00 AM EDT) Blood Culture No growth at 5 days. [facility] Blood STRUCTURE OF LEFT UPPER LIMB / Unknown 01/05/2023 9:00 AM EDT 01/05/2023 9:53 AM EDT Comment:#1 Narrative Resulting Agency Comment Spec In Lab Eyal Robbins MD MICROBIOLOGY - BLO OD ORDERABLES [facility] [place] [address] * (ABNORMAL) Differential, Automated (01/05/2023 5:17 AM EDT) Pathologist [facility] Neutrophils % 80.6 % [facility] Neutr Abs (ANC) 5.36 1.70 - 6.10 x10(3)/ L [facility] Lymphocytes % 10.4 % [facility] Lymphocytes Abs 0.7(L) 0.9 - 3.2 x10(3)/[facility] Monocytes % 8.0 % [facility] Monocyte Abs 0.5 0.3 - 0.9 x10(3)/[facility] Eosinophils % 0.5 % [facility] Eosinophils Abs 0.0 0.0 - 0.4 x10(3)/ L [facility] Basophils % 0.2 % [facility] Basophils Abs 0.0 0.0 - 0.1 x10(3)/ L [facility] Immature Gran % 0.30 % [facility] Comment: Immature granulocytes(IG's)percentage and absolute count will include metamyelocytes, myelocytes, and promyelocytes. Blood smears from CBCs yielding IG's will be scanned manually for concordance. If this scan disagrees with the automated IG or if promyelocytes are noted, a manual differential will be performed. Jaqueline Gran Abs 0.02 0.00 - 0.04 x10(3)/ L [facility] Blood 01/05/2023 5:17 AM EDT 01/05/2023 5:23 AM EDT Narrative Resulting Agency Comment Spec In Lab Nolan Ardon MD HEMATOLOGY ORDERABLE S [facility] [place] [address] * (ABNORMAL) Hemogram (01/05/2023 5:17 AM EDT) WBC 6.6 4.0 - 9.5 x10(3)/[facility] RBC 4.17 4.00 - 5.21 x10(6)/[facility] Hemoglobin 11.5(L) 11.7 - 15.5 g/dL [facility] Hematocrit 35.2(L) 35.7 - 45.8 % [facility] MCV 84.4 82.6 - 94.4 fL [facility] MCH 27.6 27.1 - 32.0 pg [facility] MCHC 32.7 31.7 - 35.0 g/dL [facility] Platelets 110(L) 145 - 357 x10(3)/[facility] RDWSD 44.8 37.0 - 46.0 [facility] RDWCV 14.6(H) 11.5 - 14.1 % [facility] MPV 9.4 7.6 - 12.9 [facility] nRBC % Auto 0.0 % [facility] nRBC Abs Auto 0.000 0.000 - 0.000 x10(3)/[facility] Blood 01/05/2023 5:17 AM EDT 01/05/2023 5:23 AM EDT Narrative Resulting Agency Comment Spec In Lab Nolan Ardon MD HEMATOLOGY ORDERABLE S [facility] [place] [address] * Phosphorus (01/05/2023 5:17 AM EDT) Pathologist [facility] Phosphorus 2.7 2.5 - 4.5 mg/dL [facility] Blood 01/05/2023 5:17 AM EDT 01/05/2023 5:23 AM EDT Narrative Resulting Agency Comment Spec In Lab Fab Cross MD CHEMISTRY ORDERABLES [facility] [place] [address] * Magnesium (01/05/2023 5:17 AM EDT) [facility] Magnesium 0.81 0.69 - 1.07 mmol/L [facility] Blood 01/05/2023 5:17 AM EDT 01/05/2023 5:23 AM EDT Narrative Resulting Agency Comment Spec In Lab Fab Cross MD CHEMISTRY ORDERABLES Performing Organization Address City/[facility]/ZIP Co de Phone Number [facility] [place] [address] * (ABNORMAL) Basic Metabolic Panel (non-fasting) (01/05/2023 5:17 AM EDT) [facility] Glucose Lvl 102 65 - 199 mg/dL [facility] Comment:Diabetes: >=200 mg/d L plus symptoms BUN 15 8 - 18 mg/dL [facility] Creatinine 0.67(L) 0.70 - 1.20 mg/dL [facility] Sodium 136 135 - 145 mmol/L [facility] Potassium 3.4(L) 3.5 - 5.0 mmol/L [facility] Comment: Please note: ??Patients with WBC >100,000 may have falsely elevated Potassium levels. ??For accurate Potassium quantification in these patients send serum separator tube (gold top) for subsequent determinations. ??Contact the Clinical Chemistry Laboratory if there are any questions. Chloride 104 98 - 107 mmol/L [facility] CO2 21(L) 22 - 31 mmol/L [facility] Anion Gap 11 5 - 15 mmol/L [facility] Calcium 8.3(L) 8.5 - 10.5 mg/dL [facility] Estimated GFR 118 >=60 mL/min/1. 73 m?? [facility] Comment: This patient's estimated GFR [...] and symptoms in addition to eGFR. Blood 01/05/2023 5:17 AM EDT 01/05/2023 5:23 AM EDT Narrative Resulting Agency Comment Spec In Lab Fab Cross MD CHEMISTRY ORDERABLES [facility] [place] [address] * Vancomycin, trough (01/04/2023 9:21 PM EDT) Vanc Trough 12.1 mg/L [facility] Comment: Therapeutic range for complicated infections such as bacteremia, endocarditis, osteomyelitis, meningitis, and hospital-acquired pneumonia caused by S. aureus: 15-20 mg/L Therapeutic range for other indications: 10-15 mg/L Toxic: >20 mg/L Reference: Vancomycin Therapeutic Monitoring: Review and Recommendations from the ASHP, IDSA and SIDP Task Force. ??Am J [employer]. 2009; 66:82-98 Blood 01/04/2023 9:21 PM EDT 01/04/2023 9:26 PM EDT Narrative Resulting Agency Comment Spec In Lab Farooq Thurman MD CHEMISTRY ORDERABLES [facility] [place] [address] * MRI Lumbar Spine wwo Contrast (01/04/2023 7:46 PM EDT) Anatomical Region Laterality Modality L-spine Magnetic Resonan ce Impressions 01/05/2023 10:04 AM EDT Findings suggestive of right L4-5 septic joint. Interval expansion of large dorsal epidural abscess from L3 to L5 produces severe thecal sac narrowing and compression of cauda equina nerve roots. Thank you for letting us participate in the care of this patient. ??If you are a health care provider and have any questions regarding this report, please contact the number below. ??For patients who have questions please contact the health reproductive healthcare assistant that requested your imaging first. ? Narrative 01/05/2023 10:04 AM EDT EXAMINATION: MRI LUMBAR SPINE WWO CONTRAST CLINICAL HISTORY: Epidural abscess TECHNIQUE: MRI of the lumbar spine was performed 4 and after the intravenous administration of 28 mL Dotarem COMPARISON: MRI lumbar spine 01/03/2023 FINDINGS: Exam is somewhat marred by patient motion, particularly the axial postcontrast sequences. Edematous and enhancing changes in the right posterior paraspinous soft tissues centered about the right L4-5 facet joint. There is enhancement within the posterior aspect of the right L5 superior articulating process. Large dorsal epidural collection with peripheral enhancement producing marked thecal sac narrowing with mass effect on the nerve roots, most severe at the L3-4 level. The nerve roots are ventrally displaced within the thecal sac at the L1-L2 level, possibly related to nerve root entrapment at the lower levels. I do not see a definite intradural lesion. Questionable intradural nerve root enhancement at the L5 level. Discovertebral degenerative changes at L4-5 and L5-S1 without definite discitis osteomyelitis of the vertebral bodies. Nonspecific edema in the posterior subcutaneous fat. Procedure Note Alka Sanabria MD - 01/05/2023 EXAMINATION: MRI LUMBAR SPINE WWO CONTRAST CLINICAL HISTORY: Epidural abscess TECHNIQUE: MRI of the lumbar spine was performed 4 and after theintravenous administration of 28 mL Dotarem COMPARISON: MRI lumbar spine 01/03/2023 FINDINGS: Exam is somewhat marred by patient motion, particularly theaxial postcontrast sequences. Edematous and enhancing changes in the right posterior paraspinous softtissues centered about the right L4-5 facet joint. There is enhancement withinthe posterior aspect of the right L5 superior articulating process. Largedorsal epidural collection with peripheral enhancement producing marked thecalsac narrowing with mass effect on the nerve roots, most severe at the L3-4level. The nerve roots are ventrally displaced within the thecal sac at theL1-L2 level, possibly related to nerve root entrapment at the lower levels. I donot see a definite intradural lesion. Questionable intradural nerve rootenhancement at the L5 level. Discovertebral degenerative changes at L4-5 and L5-S1 without definitediscitis osteomyelitis of the vertebral bodies. Nonspecific edema in the posterior subcutaneous fat. IMPRESSION Findings suggestive of right L4-5 septic joint. Interval expansion oflarge dorsal epidural abscess from L3 to L5 produces severe thecal sac narrowingand compression of cauda equina nerve roots. Thank you for letting us participate in the care of this patient. If youare a health care provider and have any questions regarding this report,please contact the number below. For patients who have questions please contactthe health reproductive healthcare assistant that requested your imaging first. Farooq Thurman MD IMG MRI ORDERABLES * ECHO COMPLETE (01/04/2023 4:49 PM EDT) Anatomical Region Laterality Modality Cardiac Other 01/04/2023 4:07 PM EDT Narrative 01/04/2023 4:56 PM EDT ? Echocardiogram Report Name: MESFIN LACKEY ? Study Date: 01/04/2023 04:07 PM ? Patient Location: 4A : 1990 ? Height: 178 cm ? Account: [id number] Age: 32 yrs ? Weight: 142 kg Gender: Female ?BSA: 2.5 m2 Ordering Physician: FAB CROSS Referring Physician: FAB CROSS Performed By: Adrienne King RDCS Reason For Study: Epidural abscess Exam Location: [facility]. Interpretation Summary Left ventricle is of normal size. Wall thickness is normal. Left ventricular systolic function is normal. The left ventricular ejection fraction is 69% by Shell's biplane. There are no segmental wall motion abnormalities. The right ventricle is of normal size. Right ventricular systolic function is normal. Procedure Complete-[id number]. Satisfactory quality. There is normal sinus rhythm. Left Ventricle There is no ventricular septal defect. Left ventricle is of normal size. Wall thickness is normal. Left ventricular systolic function is normal. The left ventricular ejection fraction is 69% by Shell's biplane. There are no segmental wall motion abnormalities. Right Ventricle The right ventricle is of normal size. Right ventricular systolic function is normal. Left Atrium The left atrium is normal. There is no evidence for a patent foramen ovale. Right Atrium The right atrium is normal. Aortic Valve The aortic valve is tricuspid. There is no aortic stenosis. There is no aortic regurgitation. Mitral Valve The mitral valve is structurally normal. There is trace mitral regurgitation. Tricuspid Valve The tricuspid valve is structurally normal. There is trace tricuspid regurgitation. Pulmonic Valve The pulmonic valve is not well visualized. Great Arteries The aortic root is of normal size. No abnormalities are identified. The ascending aorta is not well visualized. Venous Inferior vena cava is dilated. Inferior vena cava collapse less than 50% with respiration. Pericardium/Pleural The pericardium appears normal. There is no pericardial effusion. Hemodynamics Pulmonary artery hypertension could not be assessed due to inadequate tricuspid regurgitation jet. Left ventricular filling pressure is normal. Ejection Fraction ?2D Measurements ? Volumes EF(MOD-bp): 69.1 % ?IVSd: 1.2 cm ? LAV(MOD- bp) Indexed: ?LVIDd: 4.5 cm ?LVIDs: 3.1 cm ?20.9 ml/m2 ?LVPWd: 1.1 cm ?RA A4Cs_phl: 11.8 cm2 ? EDV (MOD-bp) Index: 38.3 ?LV mass(C)d: 178.1 grams ? ESV (MOD-bp) Index: 11.8 ?LV mass(C)dI: 70.5 grams/m2 ?SV(LVOT): 69.4 ml ?Ao root diam: 3.4 cm ?Ao root diam index: 1.3 ?SI(LVOT): 27.5 ml/m2 ?LVOT diam: 2.2 cm Doppler LV V1 VTI: 18.4 cm MV E max miguel: 85.4 cm/sec MV A max miguel: 72.3 cm/sec MV E/A: 1.2 MV dec time: 0.15 sec Lat Peak E' Miguel: 16.6 cm/sec E/ e' (lat): 5.1 Med Peak E' Miguel: 12.3 cm/sec E/e' (med): 6.9 E/e' Average: 6.0 I ?WMSI = 1.00 ? % Normal = 100 ?Segments ??Size X - Cannot ?2 - ?4 - ?1-2 ? small Interpret ?1 - Normal ?? Hypokinetic 3 - Akinetic Dyskinetic ?? 3-5 ? moderate 5 - ? 6-14 ?large Aneurysmal ?15-16 ?? diffuse Procedure Note Ulises Robledo MD - 01/04/2023 Echocardiogram Report Name: MESFIN LACKEY Study Date: 304:07 PM Patient Location: : 1990 Height: 178 cm Account: [id number] Age: 32 yrs Weight: 142 kg Gender: Female BSA: 2.5 m2 Ordering Physician: FAB CROSS Referring Physician: FAB CROSS Performed By: Adrienne King RDCS Reason For Study: Epidural abscess Exam Location: [facility]. Interpretation Summary Left ventricle is of normal size. Wall thickness is normal. Leftventricular systolic function is normal. The left ventricular ejection fraction is 69%by Shell's biplane. There are no segmental wall motion abnormalities. The right ventricle is of normal size. Right ventricular systolic functionis normal. Procedure Complete-[id number]. Satisfactory quality. There is normal sinus rhythm. Left Ventricle There is no ventricular septal defect. Left ventricle is of normal size.Wall thickness is normal. Left ventricular systolic function is normal. Theleft ventricular ejection fraction is 69% by Shell's biplane. There are nosegmental wall motion abnormalities. Right Ventricle The right ventricle is of normal size. Right ventricular systolic functionis normal. Left Atrium The left atrium is normal. There is no evidence for a patent foramenovale. Right Atrium The right atrium is normal. Aortic Valve The aortic valve is tricuspid. There is no aortic stenosis. There is noaortic regurgitation. Mitral Valve The mitral valve is structurally normal. There is trace mitralregurgitation. Tricuspid Valve The tricuspid valve is structurally normal. There is trace tricuspid regurgitation. Pulmonic Valve The pulmonic valve is not well visualized. Great Arteries The aortic root is of normal size. No abnormalities are identified. Theascending aorta is not well visualized. Venous Inferior vena cava is dilated. Inferior vena cava collapse less than 50%with respiration. Pericardium/Pleural The pericardium appears normal. There is no pericardial effusion. Hemodynamics Pulmonary artery hypertension could not be assessed due to inadequatetricuspid regurgitation jet. Left ventricular filling pressure is normal. Ejection Fraction 2D Measurements Volumes EF(MOD-bp): 69.1 % IVSd: 1.2 cm LAV(MOD-bp)Indexed: LVIDd: 4.5 cm LVIDs: 3.1 cm 20.9 ml/m2 LVPWd: 1.1 cm RA A4Cs_phl: 11.8cm2 EDV (MOD-bp)Index: 38.3 LV mass(C)d: 178.1 grams ESV (MOD-bp)Index: 11.8 LV mass(C)dI: 70.5 grams/m2 SV(LVOT): 69.4ml Ao root diam: 3.4 cm Ao root diam index: 1.3 SI(LVOT): 27.5ml/m2 LVOT diam: 2.2 cm Doppler LV V1 VTI: 18.4 cm MV E max miguel: 85.4 cm/sec MV A max miguel: 72.3 cm/sec MV E/A: 1.2 MV dec time: 0.15 sec Lat Peak E' Miguel: 16.6 cm/sec E/ e' (lat): 5.1 Med Peak E' Miguel: 12.3 cm/sec E/e' (med): 6.9 E/e' Average: 6.0 I WMSI = 1.00 % Normal = 100 SegmentsSize X - Cannot 2 - 4 - 1-2small Interpret 1 - Normal Hypokinetic 3 - Akinetic Dyskinetic 3-5moderate 5 - 6-14large Aneurysmal 15-16diffuse Fab Cross MD ECHO ORDERABLES * (ABNORMAL) Blood culture (01/04/2023 2:50 PM EDT) Blood Culture Staphylococcus aureus, MRSA isolated Susceptibilities previously reported (A) [facility] Gram Stain Aerobic Growth detected in aerobic bottle. Gram Positive Cocci in clusters seen (A) [facility] Organism Staphylococcus aureus, MRSA(A) [facility] Organism Gram Positive Cocci in clusters(A) [facility] Blood STRUCTURE OF LEFT FOREARM / Unknown 01/04/2023 2:50 PM EDT 01/04/2023 3:14 PM EDT Narrative Resulting Agency Comment Spec In Lab Fab Cross MD MICROBIOLOGY - BLOOD ORDERABLES [facility] [place] [address] * (ABNORMAL) Blood culture (01/04/2023 2:00 PM EDT) Blood Culture Staphylococcus aureus, MRSA isolated Susceptibilities previously reported (A) [facility] Gram Stain Aerobic Growth detected in aerobic bottle. Gram Positive Cocci in clusters seen (A) [facility] Organism Staphylococcus aureus, MRSA(A) [facility] Organism Gram Positive Cocci in clusters(A) [facility] Blood STRUCTURE OF LEFT FOREARM / Unknown 01/04/2023 2:00 PM EDT 01/04/2023 3:00 PM EDT Narrative Resulting Agency Comment Spec In Lab Fab Cross MD MICROBIOLOGY - BLOOD ORDERABLES Performing Organization Address [facility] Co de Phone Number [facility] [place] [address] * (ABNORMAL) Sedimentation rate (01/04/2023 10:40 AM EDT) [facility] Sed Rate 82(H) 2 - 37 mm/hr [facility] Comment: Effective May 27, 2019 new capillary photometric technology has resulted in a change in reference ranges. It is recommended that each ESR result be reviewed with its own age appropriate reference range. Blood 01/04/2023 10:4 0 AM EDT 01/04/2023 10:58 AM EDT Narrative Resulting Agency Comment Spec In Lab Fab Cross MD HEMATOLOGY ORDERABLE S Performing Organization Address [facility] Co de Phone Number [facility] [place] [address] * Lactate, whole blood, send to lab ([facility]) (01/04/2023 1:58 AM EDT) [facility] Lactate WB 1.3 0.5 - 2.2 mmol/L [facility] Blood 01/04/2023 1:58 AM EDT 01/04/2023 2:04 AM EDT Narrative Resulting Agency Comment Spec In Lab Ange Hoyos MD CHEMISTRY ORDERABLES Performing Organization Address [facility] Co de Phone Number [facility] [place] [address] * (ABNORMAL) Opioids Confirmation Panel, Urine (01/04/2023 1:53 AM EDT) [facility] Targeted Opioid Panel, Urine Test ?Result ? Flag ??Unit ?? RefValue ------- Targeted Opioid Screen, U ??List prescribed opioids ? See medication list ? ---ADDITIONAL INFORMATION------- ?Accuracy and completeness of declared medications on ?reports solely dependent on information submitted by ?client. ??Codeine ? Not Detected ? ng/mL ??Cutoff: 25 ?Tylenol 3 ??Xzsluyy-4-rcda-g lucuronide ?Not Detected ? ng/mL ??Cutoff: 100 ?Metabolite of codeine ??Morphine ?Not Detected ? ng/mL ??Cutoff: 25 ?[place], MS Contin; Also a minor metabolite (10%) of ?codeine and can be seen in low concentrations (<2,000 ?ng/mL) with poppy seed ingestion. ??Gnybulhv-4-zoim- glucuronide ? Not Detected ? ng/mL ??Cutoff: 100 ?Metabolite of morphine ??6-monoacetylmorp adriano ?Not Detected ? ng/mL ??Cutoff: 25 ?Metabolite of heroin ??Hydrocodone ? Not Detected ? ng/mL ??Cutoff: 25 ?Lortab, [place], Vicodin; Also a very minor metabolite of ?codeine and impurity (<1%) of oxycodone. ??Norhydrocodone ?Not Detected ? ng/mL ??Cutoff: 25 ?Metabolite of hydrocodone ??Dihydrocodeine ?Not Detected ? ng/mL ??Cutoff: 25 ?Metabolite of hydrocodone ??Hydromorphone ? Present ? @ ?ng/mL ??Cutoff: 25 ?Dilaudid, Exalgo; Also a metabolite of hydrocodone and a ?minor (<5%) metabolite of morphine. ??Hydromorphone-3- beta-glucuronide ?Present ? @ ?ng/mL ??Cutoff: 100 ?Metabolite of hydromorphone ??Oxycodone ? Not Detected ? ng/mL ??Cutoff: 25 ?Endocet, Percocet, Oxycontin ??Noroxycodone ?Not Detected ? ng/mL ??Cutoff: 25 ?Metabolite of oxycodone ??Oxymorphone ? Not Detected ? ng/mL ??Cutoff: 25 ?Numorphan, Opana; Also a metabolite of oxycodone. ??Ksawwyuayjy-9-pq ta-glucuronide ?Not Detected ? ng/mL ??Cutoff: 100 ?Metabolite of oxymorphone and/or naloxone (nornaloxone) ??Noroxymorphone ?Not Detected ? ng/mL ??Cutoff: 25 ?Metabolite of oxymorphone and/or naloxone (nornaloxone) ??Fentanyl ?Present ? @ ?ng/mL ??Cutoff: 2 ?Actiq, Duragesic, Fentora ??Norfentanyl ? Present ? @ ?ng/mL ??Cutoff: 2 ?Metabolite of fentanyl ??Meperidine ?Not Detected ? ng/mL ??Cutoff: 25 ?Demerol ??Normeperidine ? Not Detected ? ng/mL ??Cutoff: 25 ?Metabolite of meperidine ??Naloxone ?Not Detected ? ng/mL ??Cutoff: 25 ?Narcan ??Rrwgwisd-0-mton- glucuronide ? Not Detected ? ng/mL ??Cutoff: 100 ?Metabolite of naloxone ??Methadone ? Present ? @ ?ng/mL ??Cutoff: 25 ?Dolophine ??EDDP ?Present ? @ ?ng/mL ??Cutoff: 25 ?Metabolite of methadone ??Propoxyphene ?Not Detected ? ng/mL ??Cutoff: 25 ?Darvon, Darvocet ??Norpropoxyphene ? Not Detected ? ng/mL ??Cutoff: 25 ?Metabolite of propoxyphene ??Tramadol ?Not Detected ? ng/mL ??Cutoff: 25 ?Tradol, Ultram, Ultracet ??O-desmethyltrama dol ? Not Detected ? ng/mL ??Cutoff: 25 ?Metabolite of tramadol ??Tapentadol ?Not Detected ? ng/mL ??Cutoff: 25 ?Nucynta ??N-desmethyltapen tadol ? Not Detected ? ng/mL ??Cutoff: 50 ?Metabolite of tapentadol ??Tapentadol-beta- glucuronide ? Not Detected ? ng/mL ??Cutoff: 100 ?Metabolite of tapentadol ??Buprenorphine ? Not Detected ? ng/mL ??Cutoff: 5 ?Buprenex, Suboxone ??Norbuprenorphine ?Not Detected ? ng/mL ??Cutoff: 5 ?Metabolite of buprenorphine ??Norbuprenorphine glucuronide ?Not Detected ? ng/mL ??Cutoff: 20 ?Metabolite of buprenorphine ??Opioid Interpretation ? SEE COMMENTS ?Test detected the presence of hydromorphone and one of its ?metabolites (mgoxmwulanilp-8-h eta-glucuronide). Suspect use ?of hydromorphone within the past three days. ?Test detected the presence of methadone and its metabolite ?(EDDP). Suspect use of methadone within the past seven ?days. ?Test detected the presence of fentanyl and its metabolite ?(norfentanyl). Suspect use of fentanyl within the past ?three days. ? ---ADDITIONAL INFORMATION------- ?This test was developed and its performance characteristics ?determined by [facility] in a manner consistent with CLIA ?requirements. This test has not been cleared or approved by ?the U.S. Food and Drug Administration. ?Test Performed by: ?[facility] ?[address] [place] [address] ?Soccer Commentator: Frantz Luciano M.D. Ph.D.; CLIA# [id number]) [facility] Urine 01/04/2023 1:53 AM EDT 01/04/2023 9:36 AM EDT Ange Hoyos MD URINE ORD ERABLES [facility] [place] [address] * Cocaine, Urine Confirmation (01/04/2023 1:53 AM EDT) U COCAINE CONF Test ?Result ?Flag ??Unit ?? RefValue ------- Cocaine and metabolite Conf, U ??Cocaine-by GC/MS ?86 ?ng/mL ??Cutoff: 50 ??Benzoylecgonine- by GC/MS ?50035 ? ng/mL ??Cutoff: 50 ??Cocaine Interpretation ?Positive. ? ---ADDITIONAL INFORMATION------- ?This report is intended for use in clinical monitoring and ?management of patients. ??It is not intended for use in ?employment-relat ed testing. ?This test was developed and its performance characteristics ?determined by [facility] in a manner consistent with CLIA ?requirements. This test has not been cleared or approved by ?the U.S. Food and Drug Administration. ?Test Performed by: ?[facility] ?[address] [place] [address] ?Soccer Commentator: Frantz Luciano M.D. Ph.D.; CLIA# [id number] [facility] Urine 01/04/2023 1:53 AM EDT 01/04/2023 9:36 AM EDT Narrative Resulting Agency Comment Spec In Lab Ange Hoyos MD URINE ORD ERABLES [facility] [place] [address] * (ABNORMAL) Rapid Drug Screen w/ Confirmation, Urine (01/04/2023 1:53 AM EDT) U Barbiturates Screen None Detected None Detected [facility] Comment: The barbiturate screen detects barbiturates at concentrations >200 ng/mL. Note: Not all barbiturates cross-react equally with antibody used in this screen. A ? Presumptive Positive? result indicates that the screening result was positive but has not yet been confirmed by a highly-specific method. As with any screen, occasional false positive results from cross-reacting substances may occur. Not for Medico-Legal Purposes. U Benzodiazepines Screen None Detected None Detected [facility] Comment: The benzodiazepines screen detects benzodiazepines at concentrations >100 ng/mL. Not all benzodiazepines cross-react equally with antibody used in this screen. Due to the low dosage of clonazepam, false negatives may be obtained due to low concentration of clonazepam metabolites. A ? Presumptive Positive? result indicates that the screening result was positive but has not yet been confirmed by a highly-specific method. As with any screen, occasional false positive results from cross-reacting substances may occur. Not for Medico-Legal Purposes. U Cocaine Screen Presumptive Pos(A) None Detected [facility] Comment: The cocaine metabolites screen detects benzoylecgonine (Cocaine Metabolite) at concentrations >150 ng/mL. A ? Presumptive Positive? result indicates that the screening result was positive but has not yet been confirmed by a highly-specific method. As with any screen, occasional false positive results from cross-reacting substances may occur. Not for Medico-Legal Purposes. U Methadone Metabolites Screen Presumptive Pos(A) None Detected [facility] Comment: The methadone metabolite screen detects EDDP (major methadone metabolite) at concentrations >100 ng/mL. A ? Presumptive Positive? result indicates that the screening result was positive but has not yet been confirmed by a highly-specific method. As with any screen, occasional false positive results from cross-reacting substances may occur. Not for Medico-Legal Purposes. U Opiate Screen None Detected None Detected [facility] Comment: The opiates screen detects opiates at concentrations >300 ng/mL. Please note that oxycodone, oxymorphone, fentanyl, tramadol, and other synthetic opioids are not detected by the opiate screen. A ? Presumptive Positive? result indicates that the screening result was positive but has not yet been confirmed by a highly-specific method. As with any screen, occasional false positive results from cross-reacting substances may occur. Not for Medico-Legal Purposes. U Cannabinoid Screen None Detected None Detected [facility] Comment: The marijuana metabolites screen detects the THC metabolite (66-clk-1-carboxy-delta 9-THC) at concentrations >20 ng/mL. A ? Presumptive Positive? result indicates that the screening result was positive but has not yet been confirmed by a highly-specific method. As with any screen, occasional false positive results from cross-reacting substances may occur. Not for Medico-Legal Purposes. U Oxycodone Screen None Detected None Detected [facility] Comment: The oxycodone screen detects oxycodone and oxymorphone at concentrations >100 ng/mL. A ? Presumptive Positive? result indicates that the screening result was positive but has not yet been confirmed by a highly-specific method. As with any screen, occasional false positive results from cross-reacting substances may occur. Not for Medico-Legal Purposes. U Buprenorphine Screen None Detected None Detected [facility] Comment: The buprenorphine screen detects buprenorphine at concentrations >=5 ng/mL. A ? Presumptive Positive? result indicates that the screening result was positive but has not yet been confirmed by a highly-specific method. As with any screen, occasional false positive results from cross-reacting substances may occur. Not for Medico-Legal Purposes. This test has not been cleared by the [place] FDA. Performance characteristics of this test were determined by [facility] in accordance with CLIA requirements. This laboratory is qualified under CLIA to perform high-complexity testing. U Fentanyl Screen Presumptive Pos(A) None Detected [facility] Comment: The fentanyl screen detects fentanyl at concentrations >=2 ng/mL. A ? Presumptive Positive? result indicates that the screening result was positive but has not yet been confirmed by a highly-specific method. As with any screen, occasional false positive results from cross-reacting substances may occur. Not for Medico-Legal Purposes. This test has not been cleared by the [place] FDA. Performance characteristics of this test were determined by [facility] in accordance with CLIA requirements. This laboratory is qualified under CLIA to perform high-complexity testing. U Tricyclics Screen None Detected None Detected [facility] Comment: The tricyclics screen detects tricyclic antidepressants at concentrations >=150 ng/mL. Not all tricyclics cross-react equally with the antibody used in this screen. A ? Presumptive Positive? result indicates that the screening result was positive but has not yet been confirmed by a highly-specific method. As with any screen, occasional false positive results from cross-reacting substances may occur. Not for Medico-Legal Purposes. This test has not been cleared by the [place] FDA. Performance characteristics of this test were determined by [facility] in accordance with CLIA requirements. This laboratory is qualified under CLIA to perform high-complexity testing. U Ethanol Screen None Detected None Detected [facility] Comment:This urine ethanol a ssay detects ethanol at concentrations >/= 100 mg/L. U Amphetamines Screen None Detected None Detected [facility] Comment: The amphetamine screen detects d-amphetamine and d-methamphetamine at concentrations >300 ng/mL. A ? Presumptive Positive? result indicates that the screening result was positive but has not yet been confirmed by a highly-specific method. As with any screen, occasional false positive results from cross-reacting substances may occur. Not for Medico-Legal Purposes. U Creat MARCO 160 >=20 mg/dL [facility] U Chromate MARCO 4.0 <=49.9 mg/L [facility] U Nitrite MARCO <50 <=499 mg/L [facility] U Oxidant MARCO <5 <=199 mg/L [facility] U pH MARCO 5.6 3.0 - 10.9 [facility] U Adulterants Screen None Detected None Detected [facility] Comment:No adulteration of t his urine sample was detected. Urine 01/04/2023 1:53 AM EDT 01/04/2023 2:09 AM EDT Narrative Resulting Agency Comment Spec In Lab Ange Hoyos MD CHEMISTRY ORDERABLES Performing Organization Address [facility] Co de Phone Number [facility] [place] [address] * Rapid Drug Screen, Urine (MARCO Request) (01/04/2023 1:53 AM EDT) Pathologist [facility] MARCO Conf Requested Yes [facility] MARCO Requested See Comment [facility] Comment:Refer to Rapid Drug Screen w/ Confirmation, Urine for results. Urine 01/04/2023 1:53 AM EDT 01/04/2023 2:09 AM EDT Narrative Resulting Agency Comment Spec In Lab Ange Hoyos MD URINE ORD ERABLES Performing Organization Address [facility] Co de Phone Number [facility] [place] [address] * (ABNORMAL) Basic Metabolic Panel (non-fasting) (01/04/2023 12:56 AM EDT) Pathologist [facility] Glucose Lvl 106 65 - 199 mg/dL [facility] Comment:Diabetes: >=200 mg/d L plus symptoms BUN 12 8 - 18 mg/dL [facility] Creatinine 0.67(L) 0.70 - 1.20 mg/dL [facility] Sodium 137 135 - 145 mmol/L [facility] Potassium 3.5 3.5 - 5.0 mmol/L [facility] Comment: Please note: ??Patients with WBC >100,000 may have falsely elevated Potassium levels. ??For accurate Potassium quantification in these patients send serum separator tube (gold top) for subsequent determinations. ??Contact the Clinical Chemistry Laboratory if there are any questions. Chloride 105 98 - 107 mmol/L [facility] CO2 20(L) 22 - 31 mmol/L [facility] Anion Gap 12 5 - 15 mmol/L [facility] Calcium 8.5 8.5 - 10.5 mg/dL [facility] Estimated GFR 118 >=60 mL/min/1. 73 m?? [facility] Comment: This patient's estimated GFR [...] to eGFR. Blood Venous Draw / Unknown 01/04/2023 12:56 AM EDT 01/04/2023 1:19 AM EDT Narrative Resulting Agency Comment Spec In Lab Nolan Ardon MD CHEMISTRY ORDERABLES [facility] [place] [address] * (ABNORMAL) Prothrombin Time (01/04/2023 12:56 AM EDT) PT 15.7(H) 9.4 - 12.5 sec [facility] INR 1.4 [facility] Comment: An INR <2.0 indicates adequate procoagulant activity for hemostasis in most patients without underlying bleeding disorders, though the INR may not adequately reflect hemostatic capacity in patients with liver disease and synthetic impairment. The recommended target INR range for therapeutic anticoagulation is 2.0 ? 3.0 for most applications, though lower and higher ranges may be appropriate depending on clinical circumstances. Blood 01/04/2023 12:5 6 AM EDT 01/04/2023 1:19 AM EDT Narrative Resulting Agency Comment Spec In Lab Fab Cross MD HEMATOLOGY ORDERABLE S [facility] [place] [address] * Request for 2nd read MR Spine (01/04/2023 12:29 AM EDT) Anatomical Region Laterality Modality SO Impressions 01/04/2023 8:52 AM EDT 1. ??Septic right L4-5 facet joint, with associated epidural phlegmon and abscess that contributes to severe canal stenosis at L4-5. 2. ??No evidence of discitis/osteomyelitis. 3. ??Paraspinous inflammatory changes without abscess. Thank you for letting us participate in the care of this patient. ??If you are a health care provider and have any questions regarding this report, please contact the number below. ??For patients who have questions please contact the health reproductive healthcare assistant that requested your imaging first. ? Narrative 01/04/2023 8:52 AM EDT EXAMINATION: REQUEST FOR 2ND READ MR SPINE CLINICAL HISTORY: Disc-osteo, epidural abscess; Sending Institution [facility]; Date of exam [id number]; I believe a reinterpretation of this exam may alter care of Patient. Yes; see above TECHNIQUE: MRI of the lumbar spine with and without contrast performed at outside institution January 03, 2023, referred for second interpretation. COMPARISON: None FINDINGS: Vertebral body height and alignment are preserved. There is disc space narrowing and discogenic fatty endplate change at L4-5 and L5-S1. Otherwise normal marrow signal and intervertebral disc height and signal. No marrow edema or abnormal osseous or disc enhancement. Normal conus terminates at L1-2. No significant disc bulge or foraminal stenosis from T12-L1 through L2-3. Mild bilateral foraminal stenosis at L3-4 due to facet arthropathy. There is a small effusion within the right L4-5 facet joint, with enhancement and edema within the surrounding soft tissues. Enhancement extends to the right paravertebral space deep to the psoas muscle at L4 and L5, and extends into the right L3-4 and L4-5 neural foramina. No soft tissue abscess is appreciated. There is abnormal epidural enhancement and fluid from L1 into the caudal thecal sac dorsally, and ventrally from L3 to the caudal thecal sac, which contributes to mild canal stenosis at L2-3, and moderate to severe canal stenosis at L3-4 with central deviation of the cauda equina. At L4-5, there is circumferential epidural enhancement with a fluid pocket present at the right lateral and ventral epidural space measuring 1.5 x 0.8 cm in the axial plane and approximately 2 cm craniocaudad. A large circumferential disc bulge with superimposed central protrusion, moderate bilateral facet arthropathy and ligamentum flavum thickening contribute to severe canal stenosis. Bilateral foraminal disc protrusions contribute to mild right greater than left foraminal stenosis. At L5-S1, where abnormal enhancement/phlegmon causes mild canal stenosis. A mild bulge does not significantly contribute. Moderate to severe bilateral foraminal stenosis due to facet arthropathy and foraminal disc protrusions. Procedure Note Marci Brooks MD - 01/04/2023 EXAMINATION: REQUEST FOR 2ND READ MR SPINE CLINICAL HISTORY: Disc-osteo, epidural abscess; Sending Institution [facility];Date of exam [id number]; I believe a reinterpretation of this exam may alter careof Patient. Yes; see above TECHNIQUE: MRI of the lumbar spine with and without contrast performed at outside institution January 03, 2023, referred for second interpretation. COMPARISON: None FINDINGS: Vertebral body height and alignment are preserved. There is disc spacenarrowing and discogenic fatty endplate change at L4-5 and L5-S1. Otherwise normalmarrow signal and intervertebral disc height and signal. No marrow edema orabnormal osseous or disc enhancement. Normal conus terminates at L1-2. No significant disc bulge or foraminalstenosis from T12-L1 through L2-3. Mild bilateral foraminal stenosis at L3-4 due tofacet arthropathy. There is a small effusion within the right L4-5 facet joint, withenhancement and edema within the surrounding soft tissues. Enhancement extends to theright paravertebral space deep to the psoas muscle at L4 and L5, and extendsinto the right L3-4 and L4-5 neural foramina. No soft tissue abscess isappreciated. There is abnormal epidural enhancement and fluid from L1 into the caudalthecal sac dorsally, and ventrally from L3 to the caudal thecal sac, whichcontributes to mild canal stenosis at L2-3, and moderate to severe canal stenosis atL3-4 with central deviation of the cauda equina. At L4-5, there is circumferential epidural enhancement with a fluidpocket present at the right lateral and ventral epidural space measuring 1.5 x0.8 cm in the axial plane and approximately 2 cm craniocaudad. A largecircumferential disc bulge with superimposed central protrusion, moderate bilateralfacet arthropathy and ligamentum flavum thickening contribute to severe canal stenosis. Bilateral foraminal disc protrusions contribute to mild rightgreater than left foraminal stenosis. At L5-S1, where abnormal enhancement/phlegmon causes mild canal stenosis.A mild bulge does not significantly contribute. Moderate to severe bilateralforaminal stenosis due to facet arthropathy and foraminal disc protrusions. IMPRESSION 1. Septic right L4-5 facet joint, with associated epidural phlegmon andabscess that contributes to severe canal stenosis at L4-5. 2. No evidence of discitis/osteomyelitis. 3. Paraspinous inflammatory changes without abscess. Thank you for letting us participate in the care of this patient. If youare a health care provider and have any questions regarding this report,please contact the number below. For patients who have questions please contactthe health reproductive healthcare assistant that requested your imaging first. Fab Cross MD IMG OUTSIDE INTERPRE TATION ORDERABLES * L-Lactate2 Whole Blood (01/03/2023 11:18 PM EDT) Lactate WB 1.4 0.5 - 2.2 mmol/L [facility] Blood 01/03/2023 11:1 8 PM EDT 01/03/2023 11:18 PM EDT Fab Cross MD CHEMISTRY ORDERABLES Performing Organization Address City/State/[facility] Co de Phone Number [facility] [place] [address] * (ABNORMAL) Differential, Automated (01/03/2023 11:13 PM EDT) Neutrophils % 88.3 % [facility] Neutr Abs (ANC) 8.91(H) 1.70 - 6.10 x10(3)/mc L [facility] Lymphocytes % 6.2 % [facility] Lymphocytes Abs 0.6(L) 0.9 - 3.2 x10(3)/mc L [facility] Monocytes % 4.4 % [facility] Monocyte Abs 0.4 0.3 - 0.9 x10(3)/mc L [facility] Eosinophils % 0.1 % [facility] Eosinophils Abs 0.0 0.0 - 0.4 x10(3)/mc L [facility] Basophils % 0.2 % [facility] Basophils Abs 0.0 0.0 - 0.1 x10(3)/mc L [facility] Immature Gran % 0.80 % [facility] Comment: Immature granulocytes(IG's)percentage and absolute count will include metamyelocytes, myelocytes, and promyelocytes. Blood smears from CBCs yielding IG's will be scanned manually for concordance. If this scan disagrees with the automated IG or if promyelocytes are noted, a manual differential will be performed. Jaqueline Gran Abs 0.08(H) 0.00 - 0.04 x10(3)/[facility] Blood 01/03/2023 11:1 3 PM EDT 01/03/2023 11:24 PM EDT Narrative Resulting Agency Comment Spec In Lab Markos Souza MD HEMATOLOGY ORDERABLE S [facility] [place] [address] * (ABNORMAL) Hemogram (01/03/2023 11:13 PM EDT) WBC 10.1(H) 4.0 - 9.5 x10(3)/[facility] RBC 4.36 4.00 - 5.21 x10(6)/[facility] Hemoglobin 12.1 11.7 - 15.5 g/dL [facility] Hematocrit 37.0 35.7 - 45.8 % [facility] MCV 84.9 82.6 - 94.4 fL [facility] MCH 27.8 27.1 - 32.0 pg [facility] MCHC 32.7 31.7 - 35.0 g/dL [facility] Platelets 152 145 - 357 x10(3)/[facility] RDWSD 45.1 37.0 - 46.0 fL [facility] RDWCV 14.6(H) 11.5 - 14.1 % [facility] MPV 9.8 7.6 - 12.9 [facility] nRBC % Auto 0.0 % [facility] nRBC Abs Auto 0.000 0.000 - 0.000 x10(3)/mcL [facility] Blood 01/03/2023 11:1 3 PM EDT 01/03/2023 11:24 PM EDT Narrative Resulting Agency Comment Spec In Lab Markos Souza MD HEMATOLOGY ORDERABLE S [facility] [place] [address] * (ABNORMAL) CRP, acute inflammation (01/03/2023 11:13 PM EDT) CRP 190.5(H) <=4.9 mg/L [facility] Blood 01/03/2023 11:1 3 PM EDT 01/03/2023 11:24 PM EDT Narrative Resulting Agency Comment Spec In Lab Fab Cross MD CHEMISTRY ORDERABLES Performing Organization Address [facility]/ZIP Co de Phone Number [facility] [place] [address] * (ABNORMAL) Sedimentation rate (01/03/2023 11:13 PM EDT) Sed Rate 86(H) 2 - 37 mm/hr [facility] Comment: Effective May 27, 2019 new capillary photometric technology has resulted in a change in reference ranges. It is recommended that each ESR result be reviewed with its own age appropriate reference range. Blood 01/03/2023 11:1 3 PM EDT 01/03/2023 11:24 PM EDT Narrative Resulting Agency Comment Spec In Lab Fab Cross MD HEMATOLOGY ORDERABLE S Performing Organization Address City/[facility]/ZIP Co de Phone Number [facility] [place] [address] * (ABNORMAL) Blood culture (01/03/2023 11:13 PM EDT) Blood Culture Staphylococcus aureus, MRSA detected by PCR Isolate saved. If future testing is required, contact the Microbiology Environmental Emergencies Assistant. (A) [facility] Gram Stain Aerobic Growth detected in aerobic bottle. Gram Positive Cocci in clusters seen Results called to and read back by Ernie Pena RN (A) [facility] Organism Staphylococcus aureus, MRSA(A) [facility] Organism Gram Positive Cocci in clusters(A) [facility] Blood 01/03/2023 11:1 3 PM EDT 01/04/2023 12:12 AM EDT Comment:R arm Narrative Resulting Agency Comment Spec In Lab Organism Antibiotic Method Susceptibility Methicillin Resistant Staphylococcus aureus Ceftaroline MICROSCAN METHOD Sensitive Methicillin Resistant Staphylococcus aureus Clindamycin MICROSCAN METHOD Sensitive Methicillin Resistant Staphylococcus aureus Daptomycin MICROSCAN METHOD 0.5: Sensitive Methicillin Resistant Staphylococcus aureus Erythromycin MICROSCAN METHOD Resistant Methicillin Resistant Staphylococcus aureus Gentamicin MICROSCAN METHOD Sensitive Comment:Gentamicin i s not appropriate for [place]-therapy. Methicillin Resistant Staphylococcus aureus Linezolid MICROSCAN METHOD Sensitive Methicillin Resistant Staphylococcus aureus Oxacillin MICROSCAN METHOD Resistant Comment:MRSA, Note Nafcillin Resistance Methicillin Resistant Staphylococcus aureus Tetracycline MICROSCAN METHOD Sensitive Methicillin Resistant Staphylococcus aureus Trimethoprim/Sulfa MICROSCAN METHOD Sensitive Methicillin Resistant Staphylococcus aureus Vancomycin MICROSCAN METHOD 1: Sensitive Fab Cross MD MICROBIOLOGY - BLOOD ORDERABLES [facility] [place] [address] * (ABNORMAL) Blood culture (01/03/2023 11:13 PM EDT) Blood Culture Staphylococcus aureus, MRSA isolated Susceptibilities previously reported (A) [facility] Gram Stain Aerobic Growth detected in aerobic bottle. Gram Positive Cocci in clusters seen (A) [facility] Organism Staphylococcus aureus, MRSA(A) [facility] Organism Gram Positive Cocci in clusters(A) [facility] Blood 01/03/2023 11:1 3 PM EDT 01/04/2023 12:12 AM EDT Comment:R hand Narrative Resulting Agency Comment Spec In Lab Fab Cross MD MICROBIOLOGY - BLOOD ORDERABLES [facility] [place] [address] * Comprehensive metabolic panel (non-fasting) (01/03/2023 11:13 PM EDT) Glucose Lvl 110 65 - 199 mg/dL [facility] Comment:Diabetes: >=200 mg/d L plus symptoms BUN 12 8 - 18 mg/dL [facility] Creatinine 0.77 0.70 - 1.20 mg/dL [facility] Sodium 139 135 - 145 mmol/L [facility] Potassium 3.7 3.5 - 5.0 mmol/L [facility] Comment: Please note: ??Patients with WBC >100,000 may have falsely elevated Potassium levels. ??For accurate Potassium quantification in these patients send serum separator tube (gold top) for subsequent determinations. ??Contact the Clinical Chemistry Laboratory if there are any questions. Chloride 104 98 - 107 mmol/L [facility] CO2 23 22 - 31 mmol/L [facility] Anion Gap 12 5 - 15 mmol/L [facility] Calcium 8.6 8.5 - 10.5 mg/dL [facility] Total Protein 6.6 6.1 - 8.0 g/dL [facility] Albumin 3.5 3.2 - 5.2 g/dL [facility] AST 8 0 - 30 unit/L [facility] ALT 11 0 - 30 unit/L [facility] Alk Phos 59 35 - 105 unit/L [facility] Total Bilirubin 0.3 0.2 - 1.3 mg/dL [facility] Estimated GFR 104 >=60 mL/min/1. 73 m?? [facility] Comment: This patient's estimated GFR was calculated using the 2021 CKD-EPI equation. The estimated GFR can vary [...] and symptoms in addition to eGFR. Blood 01/03/2023 11:1 3 PM EDT 01/03/2023 11:24 PM EDT Narrative Resulting Agency Comment Spec In Lab Fab Cross MD CHEMISTRY ORDERABLES [facility] [place] [address] * XR Chest One View (01/03/2023 10:27 PM EDT) Anatomical Region Laterality Modality Chest N/A Digital Radiogra phy Impressions 01/03/2023 10:43 PM EDT Low lung volumes, otherwise, no acute cardiopulmonary process. Thank you for letting us participate in the care of this patient. ??If you are a health care provider and have any questions regarding this report, please contact the number below. ??For patients who have questions please contact the health reproductive healthcare assistant that requested your imaging first. ? Narrative 01/03/2023 10:43 PM EDT EXAMINATION: XR CHEST ONE VIEW CLINICAL HISTORY: Coarse breath sounds, satting in the low 90s TECHNIQUE: 1 view of the chest COMPARISON: None FINDINGS: Lung volumes are low but otherwise clear. No large pleural effusion or pneumothorax. The cardiomediastinal silhouette and pulmonary vasculature are within normal limits. No acute osseous findings. Procedure Note Helga Crawford MD - 01/03/2023 EXAMINATION: XR CHEST ONE VIEW CLINICAL HISTORY: Coarse breath sounds, satting in the low 90s TECHNIQUE: 1 view of the chest COMPARISON: None FINDINGS: Lung volumes are low but otherwise clear. No large pleural effusion or pneumothorax. The cardiomediastinal silhouette and pulmonary vasculatureare within normal limits. No acute osseous findings. IMPRESSION Low lung volumes, otherwise, no acute cardiopulmonary process. Thank you for letting us participate in the care of this patient. If youare a health care provider and have any questions regarding this report,please contact the number below. For patients who have questions please contactthe health reproductive healthcare assistant that requested your imaging first. Amadou Gao MD IMG DX ORDERABLES documented in this encounter Visit Diagnoses Diagnosis Epidural abscess- Primary Intracranial and intraspinal abscess of unspecified site Epidural abscess Intracranial and intraspinal abscess of unspecified site QT prolongation Nonspecific abnormal electrocardiogram (ECG) (EKG) Bacteremia MRSA (methicillin resistant Staphylococcus aureus) Methicillin resistant Staphylococcus aureus in conditions classified elsewhere and of unspecified site Staphylococcal arthritis of right knee Pyogenic arthritis, lower leg documented in this encounter Admitting Diagnoses Diagnosis Epidural abscess Intracranial and intraspinal abscess of unspecified site documented in this encounter Administered Medications Inactive Administered Medications - up to 3 most recent administrations Medication Order MAR Action Action Date Dose Rate Site acetaminophen (Tylenol) tablet 650 mg 650 mg, Oral, EVERY 4 HOURS PRN, Starting on Sat01/04/23 at 0217, Until 01/06/23 at 0101, Pain, Headaches, Fever, Maximum dose of acetaminophen is 4,000 mg from all sources in 24 hours. When ordered for pain, acetaminophen should be given even when other ordered pain medications are indicated. , Routine Given 01/06/2023 12:57 AM EDT 650 mg Given 01/05/2023 5:59 PM EDT 650 mg Given 01/05/2023 7:40 AM EDT 650 mg acetaminophen (Tylenol) tablet 975 mg 975 mg, Oral, EVERY 6 HOURS SCHEDULED, First dose (after last modification) on Sat01/06/23 at 0600, Until Discontinued, Maximum dose of acetaminophen is 4,000 mg from all sources in 24 hours. When ordered for pain, acetaminophen should be given even when other ordered pain medications are indicated. , Routine Given 01/17/2023 1:00 PM EDT 975 mg Given 01/17/2023 5:33 AM EDT 975 mg Given 01/16/2023 11:22 PM EDT 975 mg alteplase (Cathflo) injection 2 mg 2 mg, INTRA-CATHETER, ONCE, 1 dose, On Sat01/13/23 at 0715, Instill into occluded lumen as directed., Routine Given 01/13/2023 7:30 AM EDT 2 mg alteplase (Cathflo) injection 2 mg 2 mg, INTRA-CATHETER, ONCE, 1 dose, On Sat01/14/23 at 1345, Instill into occluded lumen as directed., Routine Given 01/14/2023 3:35 PM EDT 2 mg cefTRIAXone (Rocephin) 2 g vial attach to sodium chloride 0.9% 50 mL Mini-Bag Plus 2 g, Intravenous, EVERY 12 HOURS, First dose on Sat01/04/23 at 0600, Until Discontinued, Administer over 30 Minutes, Indication for (Active or Suspected): Other (See comment) New Bag 01/05/2023 5:40 AM EDT 2 g 100 mL/hr New Bag 01/04/2023 6:34 PM EDT 2 g 100 mL/hr New Bag 01/04/2023 6:19 AM EDT 2 g 100 mL/hr cloNIDine (Catapres) tablet 0.1 mg 0.1 mg, Oral, ONCE, 1 dose, On Sat01/05/23 at 0615, Routine Given 01/05/2023 5:26 AM EDT 0.1 mg DAPTOmycin (Cubicin) 800 mg in sodium chloride 0.9% 66 mL 800 mg, Intravenous, at 132 mL/hr, EVERY 24 HOURS, First dose on Sat01/16/23 at 1630, Until Discontinued, Routine New Bag 01/16/2023 4:36 PM EDT 800 mg 132 mL/hr enoxaparin (Lovenox) (40 mg/0.4 mL) subcutaneous injection 40 mg 40 mg, Subcutaneous, NIGHTLY, First dose on Sat01/04/23 at 2100, Until Discontinued, Routine Given 01/08/2023 8:52 PM EDT 40 mg Given 01/07/2023 8:12 PM EDT 40 mg Given 01/06/2023 8:34 PM EDT 40 mg enoxaparin (Lovenox) (40 mg/0.4 mL) subcutaneous injection 40 mg 40 mg, Subcutaneous, NIGHTLY, First dose (after last reorder) on Sat01/10/23 at 2100, Until Discontinued, Routine Given 01/16/2023 9:11 PM EDT 40 mg Given 01/15/2023 9:42 PM EDT 40 mg Given 01/14/2023 8:41 PM EDT 40 mg Ab dominal Tissue gabapentin (Neurontin) capsule 300 mg 300 mg, Oral, 3 TIMES DAILY, First dose on Sat01/06/23 at 1130, Until Discontinued, Routine Given 01/08/2023 10:09 AM EDT 300 mg Given 01/07/2023 8:11 PM EDT 300 mg Given 01/07/2023 3:47 PM EDT 300 mg gabapentin (Neurontin) capsule 600 mg 600 mg, Oral, 3 TIMES DAILY, First dose (after last modification) on Sat01/08/23 at 1500, Until Discontinued, Routine Given 01/17/2023 10:08 AM EDT 600 mg Given 01/16/2023 9:11 PM EDT 600 mg Given 01/16/2023 3:19 PM EDT 600 mg gadoterate meglumine (Dotarem) (0.5 mMol/mL) injection solution 0-100 mL 0-100 mL, Intravenous, ONCE PRN, 1 dose, Starting on Sat01/04/23 at 1936, Until Sat01/04/23 at 1934, Per Protocol, Radiology Contrast, Routine Given 01/04/2023 7:34 PM EDT 28 mLs hydrALAZINE (Apresoline) (20 mg/mL) injection 5 mg 5 mg, Intravenous, EVERY 6 HOURS PRN, Starting on Sat01/08/23 at 1902, Until Sat01/17/23 at 1536, High Blood Pressure, for SBP>180 or DBP>110 HYDROmorphone (Dilaudid) (0.2 mg/1 mL) injection syringe 0.2 mg 0.2 mg, Intravenous, ONCE, 1 dose, On 01/07/23 at 0430, Routine Given 01/07/2023 3:55 AM EDT 0.2 mg HYDROmorphone (Dilaudid) (0.5 mg/0.5 mL) injection syringe 0.3 mg 0.3 mg, Intravenous, ONCE, 1 dose, On Apoorva 01/03/23 at 2252, Routine Given 01/03/2023 11:08 PM EDT 0.3 mg HYDROmorphone (Dilaudid) (1 mg/mL) injection syringe 0.6 mg 0.6 mg, Intravenous, EVERY 4 HOURS PRN, Starting on Apoorva 01/03/23 at 2300, Until 01/05/23 at 1245, Pain, severe pain (7-10), May give an additional 0.2 mg in 30 minutes once if pain not relieved., Routine Given 01/05/2023 11:16 AM EDT 0.6 mg Given 01/05/2023 6:38 AM EDT 0.6 mg Given 01/05/2023 2:32 AM EDT 0.6 mg HYDROmorphone (Dilaudid) (1 mg/mL) injection syringe 0.6 mg 0.6 mg, Intravenous, ONCE, 1 dose, On 01/05/23 at 0430, Routine Given 01/05/2023 3:56 AM EDT 0.6 mg HYDROmorphone (Dilaudid) (1 mg/mL) injection syringe 0.8 mg 0.8 mg, Intravenous, EVERY 4 HOURS PRN, Starting on 01/05/23 at 1245, Until 01/05/23 at 1758, Pain, severe pain (7-10), May give an additional 0.2 mg in 30 minutes once if pain not relieved., Routine Given 01/05/2023 5:52 PM EDT 0.8 mg Given 01/05/2023 2:21 PM EDT 0.8 mg HYDROmorphone (Dilaudid) (1 mg/mL) injection syringe 0.8 mg 0.8 mg, Subcutaneous, EVERY 4 HOURS PRN, Starting on 01/06/23 at 1930, Until Sat01/06/23 at 2152, Pain, severe pain (7-10), May give an additional 0.2 mg in 30 minutes once if pain not relieved., Routine Given 01/06/2023 7:41 PM EDT 0.8 mg HYDROmorphone (Dilaudid) (1 mg/mL) injection syringe 0.8 mg 0.8 mg, Subcutaneous, ONCE, 1 dose, On Sat01/06/23 at 1745, Routine Given 01/06/2023 5:02 PM EDT 0.8 mg Right Arm HYDROmorphone (Dilaudid) (1 mg/mL) injection syringe 0.8 mg 0.8 mg, Subcutaneous, EVERY 3 HOURS PRN, Starting on Sat01/06/23 at 2200, Until 01/08/23 at 1405, Pain, severe pain (7-10), May give an additional 0.2 mg in 30 minutes once if pain not relieved., Routine Given 01/08/2023 11:21 AM EDT 0.8 mg Given 01/08/2023 5:49 AM EDT 0.8 mg Given 01/08/2023 3:07 AM EDT 0.8 mg HYDROmorphone (Dilaudid) (1 mg/mL) injection syringe 0.8 mg 0.8 mg, Intravenous, ONCE, 1 dose, On 01/07/23 at 2315, STAT Given 01/07/2023 10:33 PM EDT 0.8 mg HYDROmorphone (Dilaudid) (1 mg/mL) injection syringe 1 mg 1 mg, Intravenous, EVERY 4 HOURS PRN, Starting on 01/05/23 at 1757, Until 01/06/23 at 0106, Pain, severe pain (7-10), May give an additional 0.2 mg in 30 minutes once if pain not relieved., Routine Given 01/06/2023 12:02 AM EDT 1 mg HYDROmorphone (Dilaudid) tablet 2 mg 2 mg, Oral, EVERY 4 HOURS PRN, Starting on 01/15/23 at 0846, Until Apoorva 01/17/23 at 1536, Pain, Routine Given 01/17/2023 10:36 AM EDT 2 mg Given 01/17/2023 6:09 AM EDT 2 mg Given 01/16/2023 11:24 PM EDT 2 mg HYDROmorphone (Dilaudid) tablet 4 mg 4 mg, Oral, EVERY 4 HOURS PRN, Starting on Sat01/13/23 at 0808, Until Sat01/15/23 at 0846, Pain, For severe pain 7-10, Routine Given 01/15/2023 5:38 AM EDT 4 mg Given 01/15/2023 1:22 AM EDT 4 mg Given 01/14/2023 8:41 PM EDT 4 mg HYDROmorphone (Dilaudid) tablet 6 mg 6 mg, Oral, EVERY 4 HOURS PRN, Starting on Sat01/06/23 at 0106, Until Sat01/06/23 at 1031, Pain, for severe pain (7-10), Do not exceed a total of 6 mg in 4 hours., Routine Given 01/06/2023 9:15 AM EDT 6 mg Given 01/06/2023 5:19 AM EDT 6 mg Given 01/06/2023 1:17 AM EDT 6 mg HYDROmorphone (Dilaudid) tablet 6 mg 6 mg, Oral, EVERY 3 HOURS PRN, Starting on Sat01/08/23 at 1355, Until Sat01/13/23 at 0810, Pain, For severe pain pain, Routine Given 01/13/2023 8:04 AM EDT 6 mg Given 01/13/2023 4:52 AM EDT 6 mg Given 01/13/2023 1:44 AM EDT 6 mg HYDROmorphone (Dilaudid) tablet 8 mg 8 mg, Oral, EVERY 3 HOURS PRN, Starting on Sat01/06/23 at 1045, Until Sat01/06/23 at 1608, Pain, for severe pain (7-10), Routine Given 01/06/2023 3:27 PM EDT 8 mg Given 01/06/2023 12:22 PM EDT 8 mg HYDROmorphone (Dilaudid) tablet 8 mg 8 mg, Oral, EVERY 3 HOURS PRN, Starting on Sat01/08/23 at 1355, Until Sat01/11/23 at 1423, Pain, for refractory severe pain not relieved by other doses, Routine Given 01/11/2023 12:38 PM EDT 8 mg Given 01/11/2023 8:17 AM EDT 8 mg Given 01/11/2023 3:34 AM EDT 8 mg hydrOXYzine (Atarax) tablet 25 mg 25 mg, Oral, 4 TIMES DAILY PRN, Starting on Sat01/06/23 at 0114, Until Apoorva 01/17/23 at 1536, Anxiety, Routine Given 01/08/2023 11:33 PM EDT 25 mg Given 01/08/2023 3:07 PM EDT 25 mg Given 01/07/2023 11:07 PM EDT 25 mg ibuprofen (Advil) tablet 600 mg 600 mg, Oral, EVERY 6 HOURS PRN, Starting on Sat01/06/23 at 1317, Until Apoorva 01/17/23 at 1536, Pain, Administer orally with milk or food to minimize GI irritation. Maximum dose of 3,200 mg from all sources in 24 hours, Routine Given 01/15/2023 9:49 AM EDT 600 mg Given 01/15/2023 4:04 AM EDT 600 mg Given 01/13/2023 8:15 PM EDT 600 mg ketamine (Ketalar) (10 mg/mL) in sodium chloride 0.9% 100 mL infusion 0.15 mg/kg/hr ? 98 kg Adjusted weight (1.47 mL/hr, rounded to 1.5 mL/hr), Intravenous, CONTINUOUS, Starting on Sat01/06/23 at 1115, Until Sat01/11/23 at 1125, NOTE CONCENTRATION - 10 mg/mL Rate/Dose Change 01/11/2023 9:32 AM EDT 0.15 mg/kg/hr 1.5 mL/hr New Bag 01/11/2023 12:49 AM EDT 0.3 mg/kg/hr 2.9 mL/hr Rate/Dose Change 01/10/2023 8:23 AM EDT 0.3 mg/kg/hr 2.9 m L/hr ketorolac (Toradol) (30 mg/mL) injection 15 mg 15 mg, Intravenous, EVERY 6 HOURS PRN, Starting on Sat01/04/23 at 0217, Until Sat01/06/23 at 1322, Pain, Routine Given 01/06/2023 1:54 AM EDT 15 mg Given 01/05/2023 7:54 PM EDT 15 mg Given 01/05/2023 1:07 PM EDT 15 mg lidocaine (Lidoderm) 5% patch 3 patch 3 patch, Transdermal, Administer over 12 Hours, EVERY 24 HOURS, First dose on Sat01/06/23 at 1130, Until Discontinued, Apply patch(es) for 12 hours, and then remove for 12 hours., Routine Patch Applied 01/17/2023 1:00 PM EDT 3 patches 05- Back Upper (Left) Patch Applied 01/16/2023 11:08 AM EDT 3 patches 07- Back Lower (Left) Patch Applied 01/15/2023 11:36 AM EDT 3 patches 07- Back Lower (Left) lidocaine (Xylocaine) 1% (10 mg/mL) injection 3 mg 3 mg (0.3 mL), Subcutaneous, ONCE PRN, 1 dose, Starting on Sat01/04/23 at 0634, Until Sat01/17/23 at 1536, for discomfort with PIV insertion, Routine LORazepam (Ativan) (2 mg/mL) injection 1 mg 1 mg, Intravenous, ONCE, 1 dose, On Sat01/05/23 at 1845, Routine Given 01/05/2023 6:38 PM EDT 1 mg methadone (Dolophine) (10 mg/mL) oral liquid 140 mg 140 mg, Oral, ONCE, 1 dose, On Sat01/16/23 at 0900, Liquid methadone should be used to avoid diversion, and a mouth check should be performed after each dose., Routine Given 01/16/2023 8:58 AM EDT 140 mg methadone (Dolophine) (10 mg/mL) oral liquid 150 mg 150 mg, Oral, ONCE, 1 dose, On Sat01/17/23 at 0900, Liquid methadone should be used to avoid diversion, and a mouth check should be performed after each dose., Routine Given 01/17/2023 10:06 AM EDT 150 mg methadone (Dolophine) tablet 40 mg 40 mg, Oral, EVERY 12 HOURS SCHEDULED (2 times per day), First dose (after last modification) on 01/05/23 at 1300, Until Discontinued, Routine Given 01/09/2023 9:27 AM EDT 40 mg Given 01/08/2023 8:52 PM EDT 40 mg Given 01/08/2023 10:09 AM EDT 40 mg methadone (Dolophine) tablet 45 mg 45 mg, Oral, EVERY 12 HOURS SCHEDULED (2 times per day), First dose (after last modification) on Sat01/09/23 at 2100, Until Discontinued, Routine Given 01/11/2023 8:05 AM EDT 45 mg Given 01/10/2023 9:33 PM EDT 45 mg Given 01/10/2023 8:23 AM EDT 45 mg methadone (Dolophine) tablet 50 mg 50 mg, Oral, EVERY 12 HOURS SCHEDULED (2 times per day), 3 doses, First dose on Sat01/11/23 at 2100, Last dose on Sat01/12/23 at 2100, Routine Given 01/12/2023 8:36 PM EDT 50 mg Given 01/12/2023 8:14 AM EDT 50 mg Given 01/11/2023 9:14 PM EDT 50 mg methadone (Dolophine) tablet 55 mg 55 mg, Oral, EVERY 12 HOURS SCHEDULED (2 times per day), 2 doses, First dose on Sat01/13/23 at 0900, Last dose on Sat01/13/23 at 2100, Routine Given 01/13/2023 8:15 PM EDT 55 mg Given 01/13/2023 8:04 AM EDT 55 mg methadone (Dolophine) tablet 60 mg 60 mg, Oral, EVERY 12 HOURS SCHEDULED (2 times per day), 2 doses, First dose on Sat01/14/23 at 0900, Last dose on Sat01/14/23 at 2100, Routine Given 01/14/2023 8:41 PM EDT 60 mg Given 01/14/2023 8:30 AM EDT 60 mg methadone (Dolophine) tablet 65 mg 65 mg, Oral, EVERY 12 HOURS SCHEDULED (2 times per day), 2 doses, First dose on Sat01/15/23 at 0900, Last dose on Sat01/15/23 at 2100, Routine Given 01/15/2023 9: 42 PM EDT 65 mg Given 01/15/2023 9:06 AM EDT 65 mg nicotine (Nicoderm CQ) 14 mg/24 hr patch 14 mg 14 mg (1 patch), Transdermal, Administer over 24 Hours, DAILY, First dose on Sat01/04/23 at 0900, Until Discontinued, Apply new patch to clean, dry, hair-free skin on the upper body or upper outer arm; each patch should be applied to a different site. , Routine Patch Applied 01/17/2023 10:08 AM EDT 14 mg 09- Arm Upper (Left) Patch Applied 01/16/2023 8:58 AM EDT 14 mg 10- Arm Upper (Right) Patch Applied 01/15/2023 9:08 AM EDT 14 mg 10- Arm Upper (Right) nicotine (Nicoderm CQ) 14 mg/24 hr patch Patch Verification Transdermal, 2 TIMES DAILY, First dose on Sat01/04/23 at 1149, Until Discontinued, Verify nicotine 14 mg/24 hr patch. potassium chloride ER (Klor-Con M) crystal tablet 40 mEq 40 mEq, Oral, ONCE, 1 dose, On 01/05/23 at 0945, 20 mEq tablet may be dissolved in water for administration potassium chloride ER particle/crystal tablets (Klor-Con M) may be broken in half and each half swallowed separately. Tablets can be dissolved in ~4 ounces of water; allow ~2 minutes to dissolve, stir well and drink immediately. Do not crush, chew, or suck on tablet., Routine Given 01/05/2023 9:05 AM EDT 40 mEq potassium chloride ER (Klor-Con M) crystal tablet 40 mEq 40 mEq, Oral, EVERY 4 HOURS, 2 doses, First dose on Sat01/07/23 at 0230, Last dose on Sat01/07/23 at 0630, potassium chloride ER particle/crystal tablets (Klor-Con M) may be broken in half and each half swallowed separately. Tablets can be dissolved in ~4 ounces of water; allow ~2 minutes to dissolve, stir well and drink immediately. Do not crush, chew, or suck on tablet., Routine Given 01/07/2023 5:18 AM EDT 40 mEq Given 01/07/2023 2:03 AM EDT 40 mEq sodium chloride 0.9 % (flush) (BD PosiFlush Normal Saline 0.9) flush 5 mL 5 mL, Intravenous, 2 TIMES DAILY, First dose on Apoorva 01/03/23 at 2302, Until Discontinued, Routine Given 01/17/2023 10:07 AM EDT 5 mLs Given 01/16/2023 11:13 AM EDT 5 mLs Given 01/15/2023 9:43 PM EDT 5 mLs sodium chloride 0.9 % (flush) (BD PosiFlush Normal Saline 0.9) flush 5 mL 5 mL, Intravenous, 2 TIMES DAILY, First dose on Sat01/04/23 at 0900, Until Discontinued, Routine Given 01/17/2023 10:07 AM EDT 5 mLs Given 01/16/2023 9:11 PM EDT 5 mLs Given 01/16/2023 11:13 AM EDT 5 mLs sodium chloride 0.9 % (flush) (BD PosiFlush Normal Saline 0.9) flush 5-20 mL 5-20 mL, Intravenous, EVERY 1 MIN PRN, Starting on Sat01/04/23 at 0634, Until Sat01/17/23 at 1536, flush, Flush pertains to all indwelling lines. Flush per protocol found in the job aid using the link provided on this medication record., Routine tiZANidine (Zanaflex) tablet 2 mg 2 mg, Oral, EVERY 6 HOURS, First dose (after last modification) on Sat01/11/23 at 2000, Until Discontinued, Routine Given 01/15/2023 9:06 AM EDT 2 mg Given 01/15/2023 1:23 AM EDT 2 mg Given 01/14/2023 8:41 PM EDT 2 mg tiZANidine (Zanaflex) tablet 2 mg 2 mg, Oral, EVERY 8 HOURS PRN, Starting on Sat01/15/23 at 1130, Until Sat01/17/23 at 1536, Muscle spasms, Routine tiZANidine (Zanaflex) tablet 4 mg 4 mg, Oral, 4 TIMES DAILY PRN, Starting on Sat01/06/23 at 0106, Until Sat01/06/23 at 1031, Muscle spasms, pain and insomnia, Routine Given 01/06/2023 1:17 AM EDT 4 mg tiZANidine (Zanaflex) tablet 4 mg 4 mg, Oral, EVERY 6 HOURS, First dose (after last modification) on Sat01/06/23 at 1130, Until Discontinued, Routine Given 01/11/2023 5:19 PM EDT 4 mg Given 01/11/2023 12:38 PM EDT 4 mg Given 01/11/2023 6:17 AM EDT 4 mg traZODone (Desyrel) tablet 50 mg 50 mg, Oral, NIGHTLY PRN, Starting on 01/06/23 at 2159, Until Apoorva 01/17/23 at 1536, Sleep, Routine Given 01/16/2023 10:08 PM EDT 50 mg Given 01/15/2023 10:41 PM EDT 50 mg Given 01/14/2023 11:39 PM EDT 50 mg vancomycin (Vancocin) 1.5 gram in sodium chloride 0.9% 500 mL infusion 1.5 g, Intravenous, at 333.3 mL/hr, EVERY 8 HOURS, First dose on Sat01/04/23 at 0600, Until Discontinued, Maximum infusion rate is 1 gram/hour. If flushing of the face, neck, upper body, arms, and/or back occurs decrease infusion rate by 50% to reduce the severity of symptoms. This medication may have an associated drug lab level. Please see MAR for scheduled level. Warning Vesicant/Irritant Medication , STAT New Bag 01/05/2023 3:07 PM EDT 1.5 g 333.3 mL/hr New Bag 01/05/2023 5:40 AM EDT 1.5 g 333.3 mL/hr New Bag 01/04/2023 10:28 PM EDT 1.5 g 333.3 mL/hr vancomycin (Vancocin) 1.75 gram in sodium chloride 0.9% 500 mL infusion 1,750 mg (1.75 g), Intravenous, at 250 mL/hr, EVERY 8 HOURS, First dose (after last modification) on Sat01/05/23 at 2300, Until Discontinued, Maximum infusion rate is 1 gram/hour. If flushing of the face, neck, upper body, arms, and/or back occurs decrease infusion rate by 50% to reduce the severity of symptoms. This medication may have an associated drug lab level. Please see MAR for scheduled level. Warning Vesicant/Irritant Medication , STAT Given 01/16/2023 1:52 PM EDT 1,750 mg 250 mL/hr Given 01/16/2023 6:32 AM EDT 1,750 mg 250 mL/hr Given 01/15/2023 9:43 PM EDT 1,750 mg 250 mL/hr vancomycin (Vancocin) 500 mg vial attach to sodium chloride 0.9% 100 mL Mini-Bag Plus 500 mg, Intravenous, at 200 mL/hr, ONCE, 1 dose, On 01/05/23 at 1630, For total dose of 2000 mg now Maximum infusion rate is 1 gram/hour. If flushing of the face, neck, upper body, arms, and/or back occurs decrease infusion rate by 50% to reduce the severity of symptoms. This medication may have an associated drug lab level. Please see MAR for scheduled level. Warning Vesicant/Irritant Medication , STAT New Bag 01/05/2023 4:51 PM EDT 500 mg 200 mL/hr documented in this encounter Active and Recently Administered Medications Times are shown in EDT. Scheduled Medication Order 01/15/2023 01/16/2023 01/17/2023 acetaminophen (Tylenol) tablet 975 mg 975 mg, Oral, EVERY 6 HOURS SCHEDULED, First dose (after last modification) on Sat01/06/23 at 0600, Until Discontinued, Maximum dose of acetaminophen is 4,000 mg from all sources in 24 hours. When ordered for pain, acetaminophen should be given even when other ordered pain medications are indicated. , Routine 0538 (Given - Provider: Alexandrea Thompson RN)1134 (Given - Provider: Ivette Linares RN)1749 (Given - Provider: Ivette Linares, VALE)2356 (Given - Provider: Alexandrea Thompson RN) 0517 (Given - Provider: Alexandrea Thompson RN)1112 (Given - Provider: Klel Isaac, VALE)1800 (Given - Provider: Kell Isaac, VALE)2322 (Given - Provider: Jaycee Davila, VALE) 0533 (Given - Provider: Jaycee Davila RN)1300 (Given - Provider: Kell Isaac RN) DAPTOmycin (Cubicin) 800 mg in sodium chloride 0.9% 66 mL 800 mg, Intravenous, at 132 mL/hr, EVERY 24 HOURS, First dose on Sat01/16/23 at 1630, Until Discontinued, Routine 1636 (New Bag - Provider: Kell Isaac RN)1706 (Stopped - Provider: Kell Isaac RN) enoxaparin (Lovenox) (40 mg/0.4 mL) subcutaneous injection 40 mg 40 mg, Subcutaneous, NIGHTLY, First dose (after last reorder) on Sat01/10/23 at 2100, Until Discontinued, Routine 214 (Given - Provider: Alexandrea Thompson RN) 211 (Given - Provider: Jaycee Davila RN) gabapentin (Neurontin) capsule 600 mg 600 mg, Oral, 3 TIMES DAILY, First dose (after last modification) on Sat01/08/23 at 1500, Until Discontinued, Routine 0907 (Given - Provider: Ivette Linares RN)1400 (Given - Provider: Ivette Linares RN)2142 (Given - Provider: Alexandrea Thompson RN) 0859 (Given - Provider: Kell Isaac RN)1519 (Given - Provider: Kell Isaac RN)211 (Given - Provider: Jaycee Davila RN) 1008 (Given - Provider: Mulugeta Szymanski RN) lidocaine (Lidoderm) 5% patch 3 patch 3 patch, Transdermal, Administer over 12 Hours, EVERY 24 HOURS, First dose on Sat01/06/23 at 1130, Until Discontinued, Apply patch(es) for 12 hours, and then remove for 12 hours., Routine 0018 (Patch Removed - Provider: Alexandrea Thompson RN)1136 (Patch Applied - Provider: Ivette Linares RN)2336 (Patch Removed - Provider: Alexandrea Thompson RN) 1108 (Patch Applied - Provider: Kell Isaac RN)2245 (Patch Removed - Provider: Jaycee Davila RN - Comment: Patient removed by itself.) 1300 (Patch Applied - Provider: Kell Isaac RN)1336 (Due: Patch Removed - Provider: Automatic Discharge Provider - Comment: Time automatically adjusted from order being discontinued) methadone (Dolophine) (10 mg/mL) oral liquid 140 mg (COMPLETED)(Linked Group 1) 140 mg, Oral, ONCE, 1 dose, On Sat01/16/23 at 0900, Liquid methadone should be used to avoid diversion, and a mouth check should be performed after each dose., Routine 0858 (Given - Provider: Kell Isaac RN) methadone (Dolophine) (10 mg/mL) oral liquid 150 mg (COMPLETED)(Linked Group 1) 150 mg, Oral, ONCE, 1 dose, On Sat01/17/23 at 0900, Liquid methadone should be used to avoid diversion, and a mouth check should be performed after each dose., Routine 1006 (Given - Provider: Mulugeta Szymanski RN) methadone (Dolophine) tablet 65 mg (COMPLETED)(Linked Group 2) 65 mg, Oral, EVERY 12 HOURS SCHEDULED (2 times per day), 2 doses, First dose on Sat01/15/23 at 0900, Last dose on Sat01/15/23 at 2100, Routine 0906 (Given - Provider: Ivette Linares RN)2142 (Given - Provider: Alexandrea Thompson RN) nicotine (Nicoderm CQ) 14 mg/24 hr patch 14 mg(Linked Group 3) 14 mg (1 patch), Transdermal, Administer over 24 Hours, DAILY, First dose on Sat01/04/23 at 0900, Until Discontinued, Apply new patch to clean, dry, hair-free skin on the upper body or upper outer arm; each patch should be applied to a different site. , Routine 0832 (Patch Removed - Provider: Ivette Linares RN)0908 (Patch Applied - Provider: Ivette Linares RN) 0858 (Patch Applied - Provider: Kell Isaac RN) 0858 (Patch Removed - Provider: Mulugeta Szymanski RN)1008 (Patch Applied - Provider: Mulugeta Szymanski RN)1336 (Due: Patch Removed - Provider: Automatic Discharge Provider - Comment: Time automatically adjusted from order being discontinued) nicotine (Nicoderm CQ) 14 mg/24 hr patch Patch Verification(Linked Group 3) Transdermal, 2 TIMES DAILY, First dose on Sat01/04/23 at 1149, Until Discontinued, Verify nicotine 14 mg/24 hr patch. 0900 (Patch (dose and location) verified - Provider: Ivette Linares RN)2100 (Patch (dose and location) verified - Provider: Alexandrea Thompson RN) 0900 (Patch (dose and location) verified - Provider: Kell Isaac RN)2100 (Patch (dose and location) verified - Provider: Jaycee Davila RN) 0900 (Patch (dose and location) verified - Provider: Mulugeta Szymanski RN) sodium chloride 0.9 % (flush) (BD PosiFlush Normal Saline 0.9) flush 5 mL 5 mL, Intravenous, 2 TIMES DAILY, First dose on Sat01/03/23 at 2302, Until Discontinued, Routine 0908 (Given - Provider: Ivette Linares RN)2143 (Given - Provider: Alexandrea Thompson RN) 111 (Given - Provider: Kell Isaac RN)2100 (Not Given - Provider: Jaycee Davila RN - Reason: Patient Unable) 1007 (Given - Provider: Mulugeta Szymanski RN) sodium chloride 0.9 % (flush) (BD PosiFlush Normal Saline 0.9) flush 5 mL 5 mL, Intravenous, 2 TIMES DAILY, First dose on Sat01/04/23 at 0900, Until Discontinued, Routine 0908 (Given - Provider: Ivette Linares RN)2144 (Given - Provider: Alexandrea Thompson RN) 111 (Given - Provider: Kell Isaac RN)211 (Given - Provider: Jaycee Davila RN) 1007 (Given - Provider: Mulugeta Szymanski RN) tiZANidine (Zanaflex) tablet 2 mg (CANCELED) 2 mg, Oral, EVERY 6 HOURS, First dose (after last modification) on Sat01/11/23 at 2000, Until Discontinued, Routine 0123 (Given - Provider: Alexandrea Thompson RN)0906 (Given - Provider: Ivette Linares RN) vancomycin (Vancocin) 1.75 gram in sodium chloride 0.9% 500 mL infusion (CANCELED) 1,750 mg (1.75 g), Intravenous, at 250 mL/hr, EVERY 8 HOURS, First dose (after last modification) on Sat01/05/23 at 2300, Until Discontinued, Maximum infusion rate is 1 gram/hour. If flushing of the face, neck, upper body, arms, and/or back occurs decrease infusion rate by 50% to reduce the severity of symptoms. This medication may have an associated drug lab level. Please see MAR for scheduled level. Warning Vesicant/Irritant Medication , STAT 0612 (Given - Provider: Alexandrea Thompson RN)1355 (Given - Provider: Ivette Linares RN)2143 (Given - Provider: Alexandrea Thompson RN) 0632 (Given - Provider: Alexandrea Thompson RN)1352 (Given - Provider: Kell Isaac RN) PRN Medication Order 01/15/2023 01/16/2023 01/17/2023 hydrALAZINE (Apresoline) (20 mg/mL) injection 5 mg 5 mg, Intravenous, EVERY 6 HOURS PRN, Starting on Sat01/08/23 at 1902, Until Sat01/17/23 at 1536, High Blood Pressure, for SBP>180 or DBP>110 HYDROmorphone (Dilaudid) tablet 2 mg(Linked Group 4) 2 mg, Oral, EVERY 4 HOURS PRN, Starting on Sat01/15/23 at 0846, Until Sat01/17/23 at 1536, Pain, Routine 0949 (Given - Provider: Ivette Linares RN)1356 (Given - Provider: Ivette Linares RN)1749 (Given - Provider: Ivette Linares RN)2143 (Given - Provider: Alexandrea Thompson RN) 0632 (Given - Provider: Alexandrea Thompson RN)1108 (Given - Provider: Kell Isaac RN)1613 (Given - Provider: Hilton Zamarripa RN)2324 (Given - Provider: Jaycee Davila, VALE) 0609 (Given - Provider: Jaycee Davila, RN)1036 (Given - Provider: Mulugeta Szymanski RN) HYDROmorphone (Dilaudid) tablet 4 mg (CANCELED) 4 mg, Oral, EVERY 4 HOURS PRN, Starting on Sat01/13/23 at 0808, Until Sat01/15/23 at 0846, Pain, For severe pain 7-10, Routine 0122 (Given - Provider: Alexandrea Thompson RN)0538 (Given - Provider: Alexandrea Thompson RN) hydrOXYzine (Atarax) tablet 25 mg 25 mg, Oral, 4 TIMES DAILY PRN, Starting on Sat01/06/23 at 0114, Until Sat01/17/23 at 1536, Anxiety, Routine ibuprofen (Advil) tablet 600 mg 600 mg, Oral, EVERY 6 HOURS PRN, Starting on Sat01/06/23 at 1317, Until Apoorva 01/17/23 at 1536, Pain, Administer orally with milk or food to minimize GI irritation. Maximum dose of 3,200 mg from all sources in 24 hours, Routine 0404 (Given - Provider: Alexandrea Thompson RN)0949 (Given - Provider: Ivette Linares RN) lidocaine (Xylocaine) 1% (10 mg/mL) injection 3 mg 3 mg (0.3 mL), Subcutaneous, ONCE PRN, 1 dose, Starting on Sat01/03/23 at 2300, Until Apoorva 01/17/23 at 1536, for discomfort with PIV insertion, Routine lidocaine (Xylocaine) 1% (10 mg/mL) injection 3 mg 3 mg (0.3 mL), Subcutaneous, ONCE PRN, 1 dose, Starting on Sat01/04/23 at 0634, Until Apoorva 01/17/23 at 1536, for discomfort with PIV insertion, Routine sodium chloride 0.9 % (flush) (BD PosiFlush Normal Saline 0.9) flush 5-20 mL 5-20 mL, Intravenous, EVERY 1 MIN PRN, Starting on Sat01/03/23 at 2300, Until Apoorva 01/17/23 at 1536, flush, Flush pertains to all indwelling lines. Flush per protocol found in the job aid using the link provided on this medication record., Routine sodium chloride 0.9 % (flush) (BD PosiFlush Normal Saline 0.9) flush 5-20 mL 5-20 mL, Intravenous, EVERY 1 MIN PRN, Starting on Sat01/04/23 at 0634, Until Apoorva 01/17/23 at 1536, flush, Flush pertains to all indwelling lines. Flush per protocol found in the job aid using the link provided on this medication record., Routine tiZANidine (Zanaflex) tablet 2 mg 2 mg, Oral, EVERY 8 HOURS PRN, Starting on Sat01/15/23 at 1130, Until Sat01/17/23 at 1536, Muscle spasms, Routine traZODone (Desyrel) tablet 50 mg 50 mg, Oral, NIGHTLY PRN, Starting on Sat01/06/23 at 2159, Until Sat01/17/23 at 1536, Sleep, Routine 2241 (Given - Provider: Alexandrea Thompson RN) 2208 (Given - Provider: Jaycee Davila RN) Linked Groups Order Group 1: methadone (Dolophine) (10 mg/mL) oral liquid 140 mg (COMPLETED)Jump to med 140 mg, Oral, ONCE, 1 dose, On Sat01/16/23 at 0900, Liquid methadone should be used to avoid diversion, and a mouth check should be performed after each dose., Routine Followed by methadone (Dolophine) (10 mg/mL) oral liquid 150 mg (COMPLETED)Jump to med 150 mg, Oral, ONCE, 1 dose, On Sat01/17/23 at 0900, Liquid methadone should be used to avoid diversion, and a mouth check should be performed after each dose., Routine Group 2: methadone (Dolophine) tablet 50 mg (COMPLETED) 50 mg, Oral, EVERY 12 HOURS SCHEDULED (2 times per day), 3 doses, First dose on Sat01/11/23 at 2100, Last dose on Sat01/12/23 at 2100, Routine Followed by methadone (Dolophine) tablet 55 mg (COMPLETED) 55 mg, Oral, EVERY 12 HOURS SCHEDULED (2 times per day), 2 doses, First dose on Sat01/13/23 at 0900, Last dose on Sat01/13/23 at 2100, Routine Followed by methadone (Dolophine) tablet 60 mg (COMPLETED) 60 mg, Oral, EVERY 12 HOURS SCHEDULED (2 times per day), 2 doses, First dose on Sat01/14/23 at 0900, Last dose on Sat01/14/23 at 2100, Routine Followed by methadone (Dolophine) tablet 65 mg (COMPLETED)Jump to med 65 mg, Oral, EVERY 12 HOURS SCHEDULED (2 times per day), 2 doses, First dose on Sat01/15/23 at 0900, Last dose on Sat01/15/23 at 2100, Routine Followed by methadone (Dolophine) tablet 70 mg (CANCELED) 70 mg, Oral, EVERY 12 HOURS SCHEDULED (2 times per day), 2 doses, First dose on Sat01/16/23 at 0900, Last dose on Sat01/16/23 at 2100, Routine Followed by methadone (Dolophine) tablet 75 mg (CANCELED) 75 mg, Oral, EVERY 12 HOURS SCHEDULED (2 times per day), 2 doses, First dose on Sat01/17/23 at 0900, Last dose on Sat01/17/23 at 2100, Routine Followed by methadone (Dolophine) tablet 80 mg (CANCELED) 80 mg, Oral, EVERY 12 HOURS SCHEDULED (2 times per day), 2 doses, First dose on Sat01/18/23 at 0900, Last dose on Sat01/18/23 at 2100, Routine Followed by methadone (Dolophine) tablet 85 mg (CANCELED) 85 mg, Oral, EVERY 12 HOURS SCHEDULED (2 times per day), 2 doses, First dose on Sat01/19/23 at 0900, Last dose on Sat01/19/23 at 2100, Routine Followed by methadone (Dolophine) tablet 90 mg (CANCELED) 90 mg, Oral, EVERY 12 HOURS SCHEDULED (2 times per day), 2 doses, First dose on Sat01/20/23 at 0900, Last dose on Sat01/20/23 at 2100, Routine Followed by methadone (Dolophine) tablet 95 mg (CANCELED) 95 mg, Oral, EVERY 12 HOURS SCHEDULED (2 times per day), 2 doses, First dose on Sat01/21/23 at 0900, Last dose on Sat01/21/23 at 2100, Routine Followed by methadone (Dolophine) tablet 100 mg (CANCELED) 100 mg, Oral, EVERY 12 HOURS SCHEDULED (2 times per day), First dose on Sat01/22/23 at 0900, Until Discontinued, Routine Group 3: nicotine (Nicoderm CQ) 14 mg/24 hr patch 14 mgJump to med 14 mg (1 patch), Transdermal, Administer over 24 Hours, DAILY, First dose on Sat01/04/23 at 0900, Until Discontinued, Apply new patch to clean, dry, hair-free skin on the upper body or upper outer arm; each patch should be applied to a different site. , Routine And nicotine (Nicoderm CQ) 14 mg/24 hr patch Patch VerificationJump to med Transdermal, 2 TIMES DAILY, First dose on Sat01/04/23 at 1149, Until Discontinued, Verify nicotine 14 mg/24 hr patch. Group 4: HYDROmorphone (Dilaudid) tablet 2 mgJump to med 2 mg, Oral, EVERY 4 HOURS PRN, Starting on Sat01/15/23 at 0846, Until Sat01/17/23 at 1536, Pain, Routine documented in this encounter Care Teams Trophy Assembler Relationship Specialty Start Date End Date Tiffany Houser MD [address] [place] [address] PCP - General 06/28/10 documented as of this encounter
--- OUTSIDE RECORDS SUMMARY | 2024-01-13 02:14 | XMS_ITS | Encounter Summary ---
[place] [address] Care Team Providers Care Line Haul Driver Name Role Phone None Primary Care Provider Unavailabl e Encounter Details Date Type Department Care Team (Late st Contact Info) Description 06/23/2010 4:20 PM EST Office [place] [phone] Lucinda Gonzalez, [facility] [address] Discharge Disposition: Home Social History Tobacco Use Types Packs/Day Years Used Date Smoking Tobacco: Never Assessed Sex and Gender Information Value Date Recorded Sex Assigned at Not on file Gender Identity Not on file Sexual Orientation Not on file documented as of this encounter Plan of Treatment Not on file documented as of this encounter Visit Diagnoses Not on filedocumented in this encounter Care Teams Line Haul Driver Relationship Specialty Start Date End Date None None PCP - General 05/09/10 06/27/10 documented as of this encounter
--- OUTSIDE RECORDS SUMMARY | 2024-01-13 02:14 | XMS_ITS | Encounter Summary ---
Author Organization [facility] [place] [address] Care Team Providers Care Bundle Sorter Name Role Phone Tiffany Houser MD Primary Care Provider [phone] Encounter Details Date Type Department Care Team (Late st Contact Info) Description 07/12/2010 11:40 AM EST Office [place] [phone] Eduardo Parmar MD [facility] [place] [address] Discharge Disposition: Home Social History Tobacco Use [...] on filedocumented in this encounter Care Teams Bundle Sorter Relationship Specialty Start Date End Date Tiffany Houser MD [address] [place] [address] PCP - General 06/28/10 documented as of this encounter
--- OUTSIDE RECORDS SUMMARY | 2024-01-13 02:14 | XMS_ITS | Encounter Summary ---
Author Organization Count Includes [facility] [address] Care Team Providers Care Transformation Manager Name Role Phone Tiffany Houser MD Primary Care Provider [phone] Encounter Details Date Type Department Care Team (Late st Contact Info) Description 01/03/2023 [place] [phone] Harley Hernandez MD [facility] [place] [address] Social History Tobacco Use Types Packs/Day Years Used Date Smoking Tobacco: Never Assessed [facility] Inpatient Questions Answer Date Recorded Does Anyone [...] encounter Miscellaneous Notes * Telephone Encounter - Harley Hernandez MD - 01/03/2023 6:06 PM EDT I was called by the transfer center regarding Pura Samaniego, 32-year-old woman with a history significant for IV drug use who presented to the ED at [facility] with complaints of back pain. An MRI of the lumbar spine was obtained demonstrating a possible L4-5 spinal epidural abscess with evidence of discitis and osteomyelitis. Per report from outside provider the patient is neurologically intact with intact rectal tone. I recommended that the patient be transferred to the ED for neurosurgical evaluation and treatment of sepsis. The outside provider was agreeable to this plan and will coordinatewith the emergency medicine department. Harley Hernandez MD documented in this encounter Plan of Treatment Not on file documented as of this encounter Visit Diagnoses Not on filedocumented in this encounter Care Teams Transformation Manager Relationship Specialty Start Date End Date Tiffany Houser MD [address] [place] [address] PCP - General 06/28/10 documented as of this encounter
--- OUTSIDE RECORDS SUMMARY | 2024-01-13 02:14 | XMS_ITS | Encounter Summary ---
Author Organization [facility] [place] [address] Care Team Providers Care Lead Network Engineer Name Role Phone Tiffany Houser MD Primary Care Provider Encounter Details Date Type Department Care Team (Late st Contact Info) Description 01/16/2023 Orders [place] [address] Helga Stout MD [facility] [place] [address] Epidural abscess; MRSA bacteremia; Staphylococcal arthritis of right knee Social History Tobacco Use Types Packs/Day Years Used Date Smoking Tobacco: Every Day Cigarettes [facility] Inpatient Questions Answer Date Recorded Does [...] leg documented in this encounter Care Teams Lead Network Engineer Relationship Specialty Start Date End Date Tiffany Houser MD [address] [place] [address] PCP - General 06/28/10 documented as of this encounter
--- OUTSIDE RECORDS SUMMARY | 2024-01-13 02:14 | XMS_ITS | Encounter Summary ---
Author Organization [facility] Address [facility] [place] [address] Care Team Providers Care Director Of Philanthropy Name Role Phone Tiffany Houser MD Primary Care Provider [phone] Encounter Details Date Type Department Care Team (Late st Contact Info) Description 01/06/2023 11:59 PM EDT Anesthesia Event Surgical Unit Level 2 [place] [phone] Sites, Blanco Gurrola MD [facility] [place] [address] Anesthesia Record Procedure Summary Procedure Name Responsible Anesthesiologist Anesthesia Start Time Anesthesia Stop Time Acute Pain Medicine Service (consult) Events No events on file. Meds * Agents No agents on file. * Blood No blood administrations on file. Lines, Drains, and Airways No LDAs on file. documented in this encounter Social History Tobacco Use Types Packs/Day Years Used Date Smoking Tobacco: Every Day Cigarettes [facility] Inpatient Questions Answer Date Recorded [...] in this encounter Care Teams Director Of Philanthropy Relationship Specialty Start Date End Date Tiffany Houser MD [address] [place] [address] PCP - General 06/28/10 documented as of this encounter
--- OUTSIDE RECORDS SUMMARY | 2024-01-13 02:14 | XMS_ITS | Encounter Summary ---
Author Organization [facility] Address [address] [place] [address] Care Team Providers Care E Commerce Analyst Name Role Phone Angle Pulido MD Primary Care Provider Unavaila ble Encounter Details Date Type Department Care Team ([facility] st Contact Info) Description 03/02/2020 Lab Requisition [facility] Pathology & Laboratory Medicine - [address] [address] Outr Resulting Lab, Provider Social History Tobacco Use Types Packs/Day Years Used Date Smoking Tobacco: Never Assessed Sex and Gender Information Value Date Recorded Sex Assigned at Not on file Gender Identity Not on file Sexual Orientation Not on file documented as of this encounter Plan of Treatment Not on file documented as of this encounter Procedures Procedure Name Priority Date/Time Associated Diagnosis Comments HOLD SST Today 03/01/2020 14:55 EDT LYME AB Today 03/01/2020 14:55 EDT RHEUMATOID FACTOR Today 03/01/2020 14: 55 EDT documented in this encounter Results * HOLD SST (03/01/2020 14:55 EDT) Hold Hold 03/02/2020 18:01 EDT [facility] Blood VENOUS BLOOD / Unknown 03/01/2020 14:55 EDT 03/02/2020 16:57 EDT Provider Outr Resulting Lab LAB INFO SER VICE AND SUPPORT & PHONE RESULT [facility] [address] [place] [address] * LYME AB (03/01/2020 14:55 EDT) Lyme Ab Negative Negative 03/03/2020 10:14 EDT [facility] Comment:New 3rd generation a ssay in use 11/25/2019 Blood VENOUS BLOOD / Unknown 03/01/2020 14:55 EDT 03/02/2020 16:57 EDT Provider Outr Resulting Lab IMMUNOLOGY A ND SEROLOGY ORDERABLES [facility] [address] [place] [address] * RHEUMATOID FACTOR (03/01/2020 14:55 EDT) Pathologist [facility] Rheumatoid Factor <8.6 <12.0 IU/mL 03/02/2020 17:15 EDT [facility] Blood VENOUS BLOOD / Unknown 03/01/2020 14:55 EDT 03/02/2020 16:57 EDT Provider Outr Resulting Lab CHEMISTRY & BLOOD GAS ORDERABLES [facility] [address] [place] [address] documented in this encounter Visit Diagnoses Not on filedocumented in this encounter Care Teams E Commerce Analyst Relationship Specialty Start Date End Date Angle Pulido MD [address] [place] [address] PCP - General 04/04/10 documented as of this encounter
--- OUTSIDE RECORDS SUMMARY | 2024-01-13 02:14 | XMS_ITS | Encounter Summary ---
Author Organization [facility] Address [address] [place] [address] Care Team Providers Care Registered Art Therapist Name Role Phone Michelle Pulido MD Primary Care Provider Unavaila ble Encounter Details Date Type Department Care Team (Late st Contact Info) Description 02/27/2013 Results Only [facility] [phone] Michelle Pulido MD [address] [place] [address] Social History Tobacco Use Types Packs/Day Years Used Date Smoking Tobacco: Never Assessed Sex and Gender Information Value Date Recorded Sex Assigned at Not on file Gender Identity Not on file Sexual Orientation Not on file documented as of this encounter Plan of Treatment Not on file documented as of this encounter Procedures Procedure Name Priority Date/Time Associated Diagnosis Comments PAP TEST- RESULT ONLY Routine 02/27/2013 0:00 EDT documented in this encounter Results * PAP TEST- RESULT ONLY (02/27/2013 0:00 EDT) Pathology Report: CYTOPATHOLOGY REPORT Reports generated via electronic interface contain original data; however they are lacking the format of the original report. Caution should be taken when reading/interpreti ng unformatted reports. Name: ? SAMANIEGO PURA Philip ? Accession #: ? [id number] : ? 1990 (Age: 22) ??F ?Collect Date: ? 02/27/2013 Location: ? [facility] ? Receive Date: ? 03/03/2013 Provider: ?MICHELLE PULIDO MD Copy to: ? Specimen/Source: ?Pap Test, Cervix/Endocervix, ThinPrep Imaging System with manual evaluation Last Menstrual Period: ? Other: ? Additional clinical information: LAST PAP 2009 NEG ? SPECIMEN ADEQUACY ? Satisfactory for Evaluation - transformation zone component present GENERAL CATEGORIZATION ? Negative for Intraepithelial Lesion or Malignancy INTERPRETATION ? Reactive cellular changes associated with inflammation present (includes repair). ? Document reviewed and electronically signed by: ? MICHOACANO WYNNE MD ? Report Date: ??03/06/2013 09:41 End of Report [facility] 02/27/2013 03/03/2013 Michelle Pulido MD PATHOLOGY ORDERABLES [facility] [address] [place] [address] documented in this encounter Visit Diagnoses Not on filedocumented in this encounter Care Teams Registered Art Therapist Relationship Specialty Start Date End Date Michelle Pulido MD [address] [place] [address] PCP - General 04/04/10 documented as of this encounter
--- OUTSIDE RECORDS SUMMARY | 2024-01-13 02:14 | XMS_ITS | Encounter Summary ---
[place] [address] Care Team Providers Care Cart Driver Name Role Phone Tiffany Houser MD Primary Care Provider [phone] Encounter Details Date Type Department Care Team (Latest Contact Info) Description 01/04/2023 Travel Social History Tobacco Use Types Packs/Day [...] on filedocumented in this encounter Care Teams Cart Driver Relationship Specialty Start Date End Date Tiffany Houser MD [address] [place], [place] [address] PCP - General 06/28/10 documented as of this encounter
--- OUTSIDE RECORDS SUMMARY | 2024-01-13 02:14 | XMS_ITS | Clinical Summary ---
Author Organization [facility] Address [address] [place] [address] Care Team Providers Care Case Resource Manager Name Role Phone Angle Pulido MD Primary Care Provider Unavaila ble Social History Tobacco Use Types Packs/Day Years Used Date Smoking Tobacco: Never Assessed Sex and Gender Information Value Date Recorded Sex Assigned at Not on file Gender Identity Not on file Sexual Orientation Not on file Plan of Treatment Health Maintenance Due Date Last Done Comments Hepatitis C Screen 1990 Hepatitis B Vaccine (1 of 3 - 19+ 3-dose series) 08/18 COVID-19 Vaccine (2022-24 season) 2023 Care Teams Case Resource Manager Relationship Specialty Start Date End Date Angle Pulido MD [address] [place] [address] PCP - General 04/04/10
--- OUTSIDE RECORDS SUMMARY | 2024-01-13 02:14 | XMS_ITS | Referral Summary ---
Author Organization [facility] Address [address] [place] [address] Care Team Providers Care Software Project Manager Name Role Phone Angle Pulido MD Primary Care Provider Unavaila ble Social History Tobacco Use Types Packs/Day Years Used Date Smoking Tobacco: Never Assessed Sex and Gender Information Value Date Recorded Sex Assigned at Not on file Gender Identity Not on file Sexual Orientation Not on file Plan of Treatment Not on file Care Teams Software Project Manager Relationship Specialty Start Date End Date Angle Pulido MD [address] [place] [address] PCP - General 04/04/10
--- OUTSIDE RECORDS SUMMARY | 2024-01-13 02:14 | XMS_ITS | Encounter Summary ---
Author Organization [facility] Address [address] [place] [address] Care Team Providers Care Fisheries Biologist Name Role Phone Unknown, Provider Primary Care Provider [phone] Encounter Details Date Type Department Care Team (Late st Contact Info) Description 04/01/2010 Results Only [facility] [phone] Michelle Pulido MD [address] [place] [address] Social History Tobacco Use Types Packs/Day Years Used Date Smoking Tobacco: Never Assessed Sex and Gender Information Value Date Recorded Sex Assigned at Not on file Gender Identity Not on file Sexual Orientation Not on file documented as of this encounter Plan of Treatment Not on file documented as of this encounter Procedures Procedure Name Priority Date/Time Associated Diagnosis Comments SURGICAL PATHOLOGY Routine 04/01/2010 0:00 EDT documented in this encounter Results * SURGICAL PATHOLOGY (04/01/2010 0:00 EDT) Pathology Report: SURGICAL PATHOLOGY REPORT ? Reports generated via electronic interface contain original data; ? however they are lacking the format of the original report. ? Caution should be taken when reading/interpreti ng unformatted reports. ? Name: ? ADEN, PURA R ? Accession #: ? [id number] ? : ? 1990 (Age: 19) ??F ? Collect Date: ? 04/01/2010 ? Location: ? [facility] ? Receive Date: ? 04/03/2010 ? Provider: MICHELLE S TIM MD ? Copy to: ? Final Pathologic Diagnosis: ? Term cueto placenta: ? 1. ?Umbilical cord with velamentous insertion. ? 2. ? membranes with mild acute chorioamnionitis. ? 3. ?Placenta with no abnormalities. ? Document reviewed and electronically signed by: ? ELISE L KOO MD ? Report ??Date: 04/06/2010 13:17 ? By the signature above, the attending physician certifies that he/she has ? personally conducted a gross and/or microscopic examination of the described ? specimens and rendered or confirmed the above diagnosis. ? Specimen(s) Received: ? Placenta ? Clinical History: ? Full term ? Gross Description: ? Received in formalin labelled Aden, Pura and placenta is a ? cueto placenta with attached membrane and cord. ??The membranes are mostly ?? disrupted from the disc but do focally attach marginally. ??The membranes are ? gómez-pink and translucent. ??The umbilical cord measures 18.6 cm in length and 1.3 cm in diameter. ??It has velamentous insertion 7.2 cm away from the placental ? disc. ??The cut surface reveals three vessels in a lorenzo-white, gelatinous matrix. No true or false knots are identified. ??After removal of membranes and cord the placental disc weighs 486 grams and measures 21.3 x 19.0 x 1.9 cm. ??It is oval ?? in shape. ??The surface is blue-lorenzo with a normal branching vascular ? pattern and minimal to moderate fibrin deposition. ??The maternal surface is ? slightly fragmented but with all cotyledons present and minimal amount of ? attached hemorrhage. ??There is minimal calcification. ??Sectioning reveals a ? red-brown and spongy cut surface. ??Supervisor Sandblaster sections are submitted as ? follows: ? BLOCK HARRISON ? A1 ?Two membrane rolls ? A2 ?Two cross sections of umbilical cord ? A3, A4 ?Placental disc, full thickness ? (Dr. Daryl)/kmm ? End of Report ? [facility] 04/01/2010 04/03/2010 9:0 1 EDT Michelle Pulido MD PATHOLOGY ORDERABLES Performing Organization Address City/State/[facility] Co de Phone Number [facility] [address] [place] [address] documented in this encounter Visit Diagnoses Not on filedocumented in this encounter Care Teams Fisheries Biologist Relationship Specialty Start Date End Date Unknown, Provider, PCP - General 08/01/09 04/03/10 documented as of this encounter
--- OUTSIDE RECORDS SUMMARY | 2024-01-13 02:14 | XMS_ITS | Encounter Summary ---
Author Organization [facility] [place] [address] Care Team Providers Care Audit Control Clerk Name Role Phone Tiffany Houser MD Primary Care Provider [phone] Encounter Details Date Type Department Care Team (Late st Contact Info) Description 01/03/2023 5:40 PM EDT Ancillary Procedure [place] [address] Markos Arboleda MD [facility] [place] [address] Social History Tobacco Use Types Packs/Day Years Used Date Smoking Tobacco: Never Assessed [facility] Inpatient Questions Answer Date Recorded Does [...] Procedure Name Priority Date/Time Associated Diagnosis Comments FILM LIBRARY STORAGE ONLY MR SPINE Routine 01/03/2023 5:39 PM EDT documented in this encounter Results * Film Library- Storage Only MR Spine (01/03/2023 5:39 PM EDT) Narrative MARIANNE - 01/03/2023 5:39 PM EDT This exam is auto-finalizing. It's purpose is for storage only. Markos Arboleda MD IMG FILM LIBRARY ORD ERABLES [place]IAN[place] documented in this encounter Visit Diagnoses Not on filedocumented in this encounter Care Teams Audit Control Clerk Relationship Specialty Start Date End Date Tiffany Houser MD [address] [place] [address] PCP - General 06/28/10 documented as of this encounter
--- OUTSIDE RECORDS SUMMARY | 2024-01-13 02:14 | XMS_ITS | Encounter Summary ---
[place] [address] Care Team Providers Care Graduate Student Name Role Phone Tiffany Houser MD Primary Care Provider [phone] Encounter Details Date Type Department Care Team (Late st Contact Info) Description 01/04/2023 12:30 AM EDT Ancillary Procedure [place] [phone] Social History Tobacco Use Types Packs/Day Years Used Date Smoking Tobacco: Every Day Cigarettes [facility] Inpatient Questions Answer Date Recorded Does Anyone [...] Procedure Name Priority Date/Time Associated Diagnosis Comments REQUEST FOR 2ND READ MR SPINE STAT 01/04/2023 12:29 AM EDT documented in this encounter Results * Request for 2nd read MR Spine [...] who have questions please contact the health urgent care physician that requested your imaging first. ? Narrative 01/04/2023 8:52 AM EDT EXAMINATION: REQUEST FOR 2ND READ MR SPINE CLINICAL HISTORY: Disc-osteo, epidural abscess; Sending Institution [facility]; Date of exam 20230103; I believe a [...] CLINICAL HISTORY: Disc-osteo, epidural abscess; Sending Institution [facility];Date of exam 20230103; I believe a reinterpretation [...] patients who have questions please contactthe health urgent care physician that requested your imaging first. Fab Cross MD IMG OUTSIDE INTERPRE TATION ORDERABLES documented in this encounter Visit Diagnoses Not on filedocumented in this encounter Care Teams Graduate Student Relationship Specialty Start Date End Date Tiffany Houser MD [address] [place] [address] PCP - General 06/28/10 documented as of this encounter
--- OUTSIDE RECORDS SUMMARY | 2024-01-13 02:14 | XMS_ITS | Encounter Summary ---
[place] [address] Care Team Providers Care Biller Name Role Phone Tiffany Houser MD Primary Care Provider Reason for Visit * Auth/Cert (Routine) Specialty Diagnoses / Procedures Referred By Contac t Referred To Contact Diagnoses Epidural abscess Procedures ER [place] [address] [facility] Referral ID Status Reason Start Date Expiration Date Visits Re quested Visits Authorized [id number] 1 1 Encounter Details Date Type Department Care Team (Latest Contact Info) Description 01/04/2023 2:00 PM EDT - 01/04/2023 11:59 PM EDT Hospital Encounter [place] [address] Discharge Disposition: Home Social History Tobacco Use [...] on file documented as of this encounter Medications at Time of Discharge [...] 01/17/2023 02/14/2023 documented as of this encounter Plan of Treatment Not on file documented as of this encounter Procedures Procedure Name Priority Date/Time Associated Diagnosis Comments ECHO COMPLETE Routine 01/04/2023 4:49 PM EDT Epidural abscess documented in this encounter Results * ECHO COMPLETE (01/04/2023 4:49 PM EDT) Anatomical Region Laterality Modality Cardiac Other 01/04/2023 4:07 PM EDT Narrative 01/04/2023 4:56 PM EDT ? Echocardiogram Report Name: PURA SAMANIEGO ? Study Date: 01/04/2023 04:07 PM ? Patient Location: : 1990 ? Height: 178 cm ? Account: [id number] Age: 32 yrs ? Weight: 142 kg Gender: Female ?BSA: 2.5 m2 Ordering Physician: FAB GUEVARA Referring Physician: FAB GUEVARA Performed By: Adrienne King RDCS Reason For Study: Epidural abscess Exam Location: [facility]. Interpretation Summary Left ventricle is of normal size. Wall thickness is normal. Left ventricular systolic function is normal. The left ventricular ejection fraction is 69% by Shell's biplane. There are no segmental wall motion abnormalities. The right ventricle is of normal size. Right ventricular systolic function is normal. Procedure Complete-[id number]. Satisfactory quality. There is normal sinus rhythm. [...] V1 VTI: 18.4 cm MV E max lm: 85.4 cm/sec MV A max lm: 72.3 cm/sec MV E/A: 1.2 MV dec time: 0.15 sec Lat Peak E' Lm: 16.6 cm/sec E/ e' (lat): 5.1 Med Peak E' Lm: 12.3 cm/sec E/e' (med): 6.9 E/e' Average: 6.0 I ?WMSI = 1.00 ? % Normal = 100 ?Segments ??Size X - Cannot ?2 - ?4 - ?1-2 ? small Interpret ?1 - Normal ?? Hypokinetic 3 - Akinetic Dyskinetic ?? 3-5 ? moderate 5 - ? 6-14 ?large Aneurysmal ?15-16 ?? diffuse Procedure Note Ulises Robledo MD - 01/04/2023 Echocardiogram Report Name: PURA SAMANIEGO Study Date: 304:07 PM Patient Location: 4A : 1990 Height: 178 cm Account: [id number] Age: 32 yrs Weight: 142 kg Gender: Female BSA: 2.5 m2 Ordering Physician: FAB GUEVARA Referring Physician: FAB GUEVARA Performed By: Adrienne King RDCS Reason For Study: Epidural abscess Exam Location: [facility]. Interpretation Summary Left ventricle is of normal size. Wall thickness is normal. Leftventricular systolic function is normal. The left ventricular ejection fraction is 69%by Shell's biplane. There are no segmental wall motion abnormalities. The right ventricle is of normal size. Right ventricular systolic functionis normal. Procedure Complete-[id number]. Satisfactory quality. There is normal sinus rhythm. [...] V1 VTI: 18.4 cm MV E max lm: 85.4 cm/sec MV A max lm: 72.3 cm/sec MV E/A: 1.2 MV dec time: 0.15 sec Lat Peak E' Lm: 16.6 cm/sec E/ e' (lat): 5.1 Med Peak E' Lm: 12.3 cm/sec E/e' (med): 6.9 E/e' Average: 6.0 I WMSI = 1.00 % Normal = 100 SegmentsSize X - Cannot 2 - 4 - 1-2small Interpret 1 - Normal Hypokinetic 3 - Akinetic Dyskinetic 3-5moderate 5 - 6-14large Aneurysmal 15-16diffuse Fab Guevara MD ECHO ORDERABLES documented in this encounter Visit Diagnoses Not on filedocumented in this encounter Care Teams Biller Relationship Specialty Start Date End Date Tiffany Houser MD [address] [place] [address] PCP - General 06/28/10 documented as of this encounter
--- OUTSIDE RECORDS SUMMARY | 2024-01-13 02:14 | XMS_ITS | Encounter Summary ---
[place] [address] Care Team Providers Care Nursing Teacher Name Role Phone Tiffany Houser MD Primary Care Provider [phone] Reason for Visit * Reason Comments Back Pain Encounter Details Date Type Department Care Team ([facility] st Contact Info) Description 09/21/2010 11:00 AM EDT [place] [address] Cathryn Braga, PT [facility] Tiffany Houser MD [address] [place] [id number] Lumbar disc herniation (Primary Dx) Discharge Disposition: Home Social History Tobacco Use Types Packs/Day Years Used Date Smoking Tobacco: Never Assessed Sex and Gender Information Value Date Recorded Sex Assigned at Not on file Gender Identity Not on file Sexual Orientation Not on file documented as of this encounter Progress Notes * Cathryn Braga, PT - 09/21/2010 1:06 PM EDT Work Readiness Assessment Referring Provider: Eduardo Parmar M.D. Primary Care Provider: TIFFANY HOUSER MD Reason for Referral: Pura Samaniego was [facility] to [facility] for assistance in determining she current work capacity. Brief Medical History: Ms. Samaniego Has a history of gradually worsening low back pain which began 7-8 years ago. Approximately a year ago the pain escalated during her with her now a 6-month-old son. Treatment to date has included medications and several courses of physical therapy. She currently complains of low back pain, right greater than left. The pain is rated as 6/10 at its leastand 9/10 at its worst, on a 0-10 numerical scale. Symptoms worsen with bending, standing, sitting, driving, and lifting. Symptoms ease when changing position and activity frequently. Work History Employer: [employer] Job Title: [employer] Years of Service: Ms. Samaniego has been working in her current position for 2 years. Work Status: Ms. Samaniego has not been able to work since November 2009. Job Demands: This is a medium physical demand level job requiring lifting up to 50 lbs. on an occasional basis by Ms. Samaniego's description. A current job description and job analysis was not provided by the employer. Identified at Risk Job Functions 1. lifting 2. bending Current Physical Tolerances AROM: Lumbar flexion 35 degrees Lumbar extension 25 degrees Within normal limits, both upper and lower extremities, neck and trunk. Ms. Samaniego is able to perform a full range squat. Strength: Strength is 5/5 bilateral upper and lower extremities. Gait: Gait is unremarkable. Upper Body Tasks Heel Seater Strength (lbs): Right Left 80 75 85 75 90 70 Comments: To attain the tolerances for brownfield redevelopment specialist strength, a dynamometer in the second position was used. Ms. Samaniego is right-hand dominant. When compared to well-established normative data, Ms. Marroquins bilateral brownfield redevelopment specialist strength is normal for females her age. Cardiovascular Endurance Ms. Samaniego completed a multistage, submaximal treadmill protocol by walking for 7 minutes at 2.8 mph on a 12% grade. This is equivalent to 8 METs with a heart rate of 122 bpm. Non Material Handling Tasks Bend Limited to 35?? flexion and 25?? extension Kneel No limitations Squat No limitations Climb No limitations Stand Ms. Samaniego reports 60 minutes Walk Ms. Samaniego reports 40 minutes Sit Ms. Samaniego reports 60 minutes Reach No limitations Drive Ms. Samaniegoreports 60 minutes Do Fine Motor No observed or reported limitations Comments: To attain the above non material handling tolerances Ms. Samaniego was observed during tasks requiring these postures and by self report. Material Handling 1-time max Occasional Carry 25 feet 50 lbs. 35 lbs. Floor to Waist 40 lbs. 28 lbs. 12 to Waist 50 lbs. 35 lbs. Waist to Shoulder 30 lbs. 21 lbs. Shoulder to Btsiqrac22 lbs. 21 lbs. Push 25 feet 40 lbs. 28 lbs. Pull 25 feet 41 lbs. 29 lbs. Comments: To attain the material handling tolerances Ms. Samaniego carried, lifted, pushed and pulleda succession of weights. She demonstrated good body mechanics. Approximate frequency of lifts or movements are defined by the [place] Department of Labor and Training and Administration. Occasional- up to 33% of the work day; up to 1 repetition per 30 minutes. Frequent- up to 66% of the work day; up to 1 repetition per 2 minutes. Constant- up to 100% of the work day; up to 1 repetition per 15 seconds. 1-time Maximum- maximum ability demonstrated during a testing situation. Sedentary work defined by the [place] Department of Employment and Training Administration requires lifting no more than 10 lbs. on an occasional basis, with possible lifting of small objects weighing less than 10 lbs. Typical energy requirement -1.5 METS Sedentary-Light work defined by the [place] [employer] of [employer] and Training Administration requires lifting no more than 15 lbs. on an occasional basis or up to 10 lbs. on a more frequent basis. Typical energy requirement -2.0 METS Light work as defined by the [place] [employer] of [employer] and [employer] Administration requires lifting no more than 20 lbs. on an occasional basis or up to 10 lbs. on a more frequent basis. Typical energy requirement -2.5 METS Light-Medium work as defined by the [place] [employer] of [employer] and Training Administration requires lifting no more than 35 lbs. on an occasional basis or up to 20 lbs. on a more frequent basis. Typical energy requirement -3.0 METS Medium work as defined by the [place] [employer] and [employer] Administration requires lifting up to a maximum of 50 lbs. on an occasional basis or up to 25 lbs. on a more frequent basis. Typical energy requirement -3.5 METS Medium-Heavy work as defined by the [place] Department of Employment and Training Administration requires lifting up to a maximum of 75 lbs. on an occasional basis or up to 35 lbs. on a more frequent basis. Typical energy requirement -4.5 METS Heavy work as defined by the [place] [employer] of [employer] and Training Administration requires lifting up to a maximum of 100 lbs. on an occasional basis or up to 50 lbs. on a more frequent basis. Typical energy requirement -6.0 METS Very Heavy work as defined by the [place] Department of Employment and Training Administration requires lifting over 100 lbs. on an occasional basis or up to 50 lbs. on a more frequent basis. Typical energy requirement - 7.5 to 12 METS Assessment and Summary: The above findings were based on an assessment of cardiovascular endurance,physical function, statements made during the evaluation and observations made by the manager furniture. During a one hour assessment Ms. Samaniego did demonstrate tolerances for the identified at risk job functions. 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 Recommendations: - Return to work without restrictions. This report provides guidance to the occupational health team in assessing Ms. Samaniego's work capacity. The result of this testing must be integrated with clinical findings and other observations to derive a final assessment of work capacity. In addition, this report is not intended for use as partof an application for social security disability insurance. For this purpose a full Functional Capacity Evaluation is required. 60 minutes was spent interviewing and assessing Pura Samaniego Subjective: Patient ID: Pura Samaniego is a 20 y.o. female. Objective: Ortho Exam Neurologic Exam Assessment and Plan: No problem-specific visit notes found for this encounter. documented in this encounter Plan of Treatment Not on file documented as of this encounter Visit Diagnoses Diagnosis Lumbar disc herniation- Primary Displacement of lumbar intervertebral disc without myelopathy documented in this encounter Care Teams Nursing Teacher Relationship Specialty Start Date End Date Tiffany Houser MD [address] [place] [address] PCP - General 06/28/10 documented as of this encounter
--- OUTSIDE RECORDS SUMMARY | 2024-01-13 02:14 | XMS_ITS | Encounter Summary ---
Author Organization [facility] Address [address] [place] [address] Care Team Providers Care Damage Prevention Coordinator Name Role Phone Unknown, Provider Primary Care Provider Encounter Details Date Type Department Care Team (Late st Contact Info) Description 08/01/2009 Orders Only [facility] Laboratory Services - [facility] ([facility] [address], [place] [id number] Irene Osborn [place], [place] [id number] Social History Tobacco Use Types Packs/Day Years Used Date Smoking Tobacco: Never Assessed Sex and Gender Information Value Date Recorded Sex Assigned at Not on file Gender Identity Not on file Sexual Orientation Not on file documented as of this encounter Plan of Treatment Not on file documented as of this encounter Procedures Procedure Name Priority Date/Time Associated Diagnosis Comments CYTOPATHOLOGY Routine 08/01/2009 0:00 EST documented in this encounter Results * CYTOPATHOLOGY (08/01/2009 0:00 EST) Pathology Report: CYTOPATHOLOGY REPORT ? Reports generated via electronic interface contain original data; ? however they are lacking the format of the original report. ? Caution should be taken when reading/interpreti ng unformatted reports. ? Name: ? PURA LACKEY ? Accession #: ? [id number] ? : ? 1990 (Age: 18) ??F ?Collect Date: ? 08/01/2009 ? Location: ? [facility] ? Receive Date: ? 08/02/2009 ? Provider: ?IRENE OSBORN CNM ? Copy to: ? Specimen/Source: ?Pap Test, Cervix/Endocervix, ThinPrep Imaging System ? with manual evaluation ? Last Menstrual Period: ? 12/15/09 ? Menstrual/Pregnanc y Status: ? SPECIMEN ADEQUACY ? Satisfactory for Evaluation ? - transformation zone component present ? GENERAL CATEGORIZATION ? Negative for Intraepithelial Lesion or Malignancy ? INTERPRETATION ? Reactive cellular changes associated with inflammation present (includes ?? repair). ? Shift in sha present suggestive of bacterial vaginosis. ? Document reviewed and electronically signed by: ? STEPHEN MOUNT MD ? Report Date: ??08/04/2009 12:05 ? End of Report ? [facility] 08/01/2009 08/02/2009 Irene Osborn CNM PATHOLOGY ORDERABLES [facility] [address] [place] [address] documented in this encounter Visit Diagnoses Not on filedocumented in this encounter Care Teams Damage Prevention Coordinator Relationship Specialty Start Date End Date Unknown, Provider, PCP - General 08/01/09 04/03/10 documented as of this encounter
--- OUTSIDE RECORDS SUMMARY | 2024-01-13 02:14 | XMS_ITS | Encounter Summary ---
Author Organization [facility] Address [facility] [place] [address] Care Team Providers Care Screw Machine Operator Swiss Type Name Role Phone Tiffany Houser MD Primary Care Provider [phone] Encounter Details Date Type Department Care Team (Late st Contact Info) Description 01/10/2023 1:05 PM EDT Anesthesia Event [facility] [place] [id number] Alexandrea Chambers MD [facility] [place] [address] Anesthesia Record Procedure Summary Procedure Name Responsible Anesthesiologist Anesthesia Start Time Anesthesia Stop Time LAMINECTOMY LUMBAR, DECOMPRESSION, 1 OR 2 SEGMENTS (WRVU 16.43) (Midline: Spine Lumbar) Events No events on file. Meds * [...] on filedocumented in this encounter Care Teams Screw Machine Operator Swiss Type Relationship Specialty Start Date End Date Tiffany Houser MD [address] [place] [address] PCP - General 06/28/10 documented as of this encounter
== END 2024-01-13 02:20 | disposition home or self-care (01) ==
PROVIDERS: Emergency Provider Student in an Organized Health Care Education/Training Program; PCP Family Medicine
DX: L73.9 Follicular disorder, unspecified (principal); L03.116 Cellulitis of left lower limb; L03.115 Cellulitis of right lower limb; F19.10 Other psychoactive substance abuse, uncomplicated; F17.210 Nicotine dependence, cigarettes, uncomplicated
CPT/HCPCS: 99283

== ENCOUNTER 2024-07-24 11:11 | Emergency (ER) | payer MEDICAID, SELFPAY ==
[2024-07-24 11:21] VITALS: BP 154/101; PULSE 111; RESP 18; TEMP 36.8; O2SAT 96
[2024-07-24] MEDS: predniSONE 20 MG TAB 40 MG PO (11:58)
[2024-07-24] MEDS: Inhaler, Assist Device 1 EACH MC (11:58)
[2024-07-24] MEDS: Albuterol HFA 8 GM 60 PUFF INH IH (11:58)
[2024-07-24 12:01] VITALS: BP 154/101; PULSE 111; RESP 18; TEMP 36.8; O2SAT 96
[2024-07-24 12:13] VITALS: BP 151/100; PULSE 112; RESP 22; TEMP 36.3; O2SAT 97
--- NOTE | 2024-07-24 12:29 | DI.RAD_ITS ---
Exam(s) XR CHEST 2V PA LATERAL EXAM: XR CHEST 2V PA LATERAL CLINICAL HISTORY: wheezing, dyspnea TECHNIQUE: 2D digital imaging was performed. Two views. COMPARISON: No exams were available for comparison FINDINGS: HEART: Normal size. Aorta: Not dilated. PULMONARY VASCULATURE: Normal. MEDIASTINUM: Unremarkable. LUNGS: Clear. PLEURAL SPACE: No pleural effusion or pneumothorax. BONE:Unremarkable for age. SOFT TISSUES: Unremarkable. IMPRESSION: No acute abnormality. DATA REPOSITORY: RADIATION DOSE DELIVERED:
--- NOTE | 2024-07-24 12:39 | W.ED.GENAD ---
Discharge Plan Disposition Patient Disposition: Home Condition: Stable Discharge Details Clinical Impression: Influenza A Primary Care Provider: Tiffany Houser V ED Provider: Diana Winslow Home Meds and New Rx's Prescriptions: New prednisone 20 mg tablet 40 mg PO DAILY Qty: 10 0RF oseltamivir [Tamiflu] 75 mg capsule 75 mg PO BID 5 Days Qty: 10 0RF Continued Mirena 1 EACH intrauterine device 1 insert intrauterine DIRECTED Patient Comments: pt states she has had for a year and half 04/20/16 acetaminophen [Mapap Extra Strength] 500 MG tablet 1,000 mg PO PRN PRN ibuprofen [Ibuprofen IB] 200 MG tablet 400 mg PO PRN PRN gabapentin 300 mg capsule 300 mg PO TID methadone 10 mg/mL Concentrate 170 mg PO DAILY Patient Comments: recent dose increase furosemide [Lasix] 20 mg tablet 20 mg PO DAILY Qty: 5 0RF nicotine [Nicoderm CQ] 21 mg/24 hr Patch 24 Hour 1 patch transdermal DAILY nicotine (polacrilex) 4 mg gum 4 mg PO DIRECTED Patient Comments: CHEW 1 GUM BY MOUTH DIRECTED Discharge Instructions Instructions: Flu, Adult ED Additional Instructions: The inhaler 2 puffs every 4-6 hours as needed for cough, wheeze, shortness of breath, continue with your ibuprofen and Tylenol usage per package instructions for fever Take the Tamiflu, make sure you started today for best effect Take the prednisone as prescribed and return earlier should you have new or worsening complaints including worsening shortness of breath chest discomfort Referrals: Tiffany Houser MD [Primary Care Provider] - 1 week HPI General Date/Time Provider Initiated Documentation: 07/24/24 11:34. HPI Narrative: The patient is a 33-year-old female with a history of polysubstance abuse who presents with a sore throat, shortness of breath, headache, congestion, and cough. She has taken ibuprofen and Tylenol this morning. Her mother was sick with influenza and COVID-19 approximately a week ago. She reports no chance of . She is on methadone and reports no intravenous drug use for the past 2 months. Related Data Home Medications ?Medication ?Instructions ?Recorded ?Confirmed levonorgestrel 21 mcg/24 hr (up to 1 insert intrauterine DIRECTED 11/18/14 07/24/24 8 years) 52 mg intrauterine device (Mirena) acetaminophen 500 mg tablet (Mapap 1,000 mg PO PRN PRN 09/13/15 07/24/24 Extra Strength) ibuprofen 200 mg tablet (Ibuprofen 400 mg PO PRN PRN 01/17/16 07/24/24 IB) gabapentin 300 mg capsule 300 mg PO TID 04/18/21 07/24/24 methadone 10 mg/mL oral concentrate 170 mg PO DAILY 04/18/21 07/24/24 nicotine (polacrilex) 4 mg gum 4 mg PO DIRECTED 01/03/23 07/24/24 nicotine 21 mg/24 hr daily 1 patch transdermal DAILY 01/03/23 07/24/24 transdermal patch (Nicoderm CQ) furosemide 20 mg tablet (Lasix) 20 mg PO DAILY #5 tabs 01/13/24 07/24/24 oseltamivir 75 mg capsule (Tamiflu) 75 mg PO BID 5 days #10 caps 07/24/24 prednisone 20 mg tablet 40 mg (2 x 20 mg) PO DAILY #10 tabs 07/24/24 Previous Rx's ?Medication ?Instructions ?Recorded furosemide 20 mg tablet (Lasix) 20 mg PO DAILY #5 tabs 01/13/24 oseltamivir 75 mg capsule (Tamiflu) 75 mg PO BID 5 days #10 caps 07/24/24 prednisone 20 mg tablet 40 mg (2 x 20 mg) PO DAILY #10 tabs 07/24/24 Allergies Allergy/AdvReac Type Severity Reaction Status Date / Time No Known Allergies Allergy Unverified 07/24/24 11:23 General Stated Complaint: RespSymp FRANCISCO: 3 Exam Narrative Exam Narrative: General Appearance: The patient is alert and oriented, answering questions appropriately. Vital signs: Within normal limits. HEENT: Oropharynx is patent, uvula is midline. Respiratory: Rhonchi and scattered wheezes are present in the lungs, but no respiratory distress. Cardiovascular: Sinus tachycardia is noted in the heart. Gastrointestinal: There is no tenderness in the abdomen. Skin: Warm and dry, no rash. Neurological: Normal. Course Vital Signs Vital signs: Vital Signs Temperature 36.8 C 07/24/24 11:21 Pulse 111 H 07/24/24 11:21 Respiratory Rate 18 07/24/24 11:21 Blood Pressure 154/101 H 07/24/24 11:21 Pulse Oximetry 96 07/24/24 11:21 Temperature 36.3 C L 07/24/24 12:13 Temperature Source Tympanic 07/24/24 12:13 Pulse 112 H 07/24/24 12:13 Respiratory Rate 22 07/24/24 12:13 Respiratory Effort Normal, Non-Labored 07/24/24 12:01 Respiratory Depth Normal 07/24/24 12:01 Blood Pressure 151/100 H 07/24/24 12:13 Blood Pressure Position Sitting 07/24/24 12:01 Pulse Oximetry 97 07/24/24 12:13 Oxygen Delivery Method Room Air 07/24/24 12:13 Oxygen Flow Rate 0 07/24/24 12:13 Pain Level 5 07/24/24 12:01 Medical Decision Making Initial Assessment: 33-year-old female with history of polysubstance abuse presents with sore throat, shortness of breath, headache, congestion, and cough. Recent exposure to flu and COVID-19 from mother. ED Course: - Rapid influenza and COVID-19 test ordered. - Chest x-ray ordered. - Prednisone prescribed. - Inhaler prescribed. Final Assessment: Patient evaluated for upper respiratory infection with rapid influenza and COVID-19 tests, chest x-ray, and prescribed medications including prednisone and an inhaler. Clinical Impression: - Upper respiratory infection. MDM Components Evaluation: - Number of Differential Diagnoses or Management Options: Upper respiratory infection. - Amount and Complexity of Data Reviewed: Rapid influenza and COVID-19 tests, chest x-ray. - Risk of Complication and Morbidity or Mortality: Moderate risk due to history of polysubstance abuse and current respiratory symptoms. Quality:SDOH Health Related Social Needs: No Data to Display PFSH All Active Problems Influenza A (Acute) Polysubstance abuse (Acute) Acute hypokalemia (Acute) Dehydration (Acute) Cellulitis of left arm (Acute) Previous delivery, delivered (Acute) Medical History Drug abuse Heroin abuse Asthma Migraine Surgical History section (04/01/10) failed induction for post dates. No dilation. Velamentouse cord insertion noted on path report. No distress. Male infant named Alli 7lb 14oz. Family History Father Essential hypertension Diabetes [id number] Cartwright's chorea Social History Smoking/Tobacco Use Status: Current every day Tobacco Type: cigarettes Smoking risk assessment performed?: Yes Alcohol Intake: never Drug use: Daily Substance use type: heroin, painkillers and IV drugs Details: 01/03/23: pt states fentanyl every other day Do you feel safe at home: Yes Do you feel safe in your relationship?: Yes
[2024-07-24 12:47] VITALS: BP 135/82; PULSE 109; RESP 16; O2SAT 95
== END 2024-07-24 13:00 | disposition home or self-care (01) ==
PROVIDERS: Emergency Provider Physician Assistant; PCP Family Medicine
DX: R05.1 Acute cough; R07.0 Pain in throat; F17.210 Nicotine dependence, cigarettes, uncomplicated; R06.02 Shortness of breath; J09.X2 Influenza due to identified novel influenza A virus with other respiratory manifestations
CPT/HCPCS: 99283; 71046; J7512

== ENCOUNTER 2024-08-07 06:02 | Inpatient (IN) | payer MEDICAID, SELFPAY ==
[2024-08-07] VITALS (76 sets, daily range): BP systolic 93–171; BP diastolic 63–113; PULSE 74–120; RESP 10–30; TEMP 35.2–38.6; O2SAT 91–99
--- NOTE | 2024-08-07 06:17 | DI.MRI_ITS ---
Exam(s) MR THORACIC SPINE WO/W EXAM: MR THORACIC SPINE WO/W CLINICAL HISTORY: recent spinal epidural abscess, ill appearing. TECHNIQUE: Multiplanar multisequence MRI of the Thoracic spine was performed. CONTRAST MATERIAL: IV Contrast: 20 mL of Dotarem contrast administered. COMPARISON: CR XR CHEST 2V PA LATERAL from 07/24/2024 MR MR LUMBAR SPINE WO/W from 08/07/2024 CR XR PORTABLE CHEST AP from 08/07/2024 FINDINGS: Bones: The vertebral body heights are well maintained. Alignment is satisfactory. The signal characte ristics are unremarkable. Cord: The thoracic cord is normal size and signal intensity. No intrinsic cord lesion is present. Discs: There are few small disc bulges in central disc herniations in the thoracic spine but no centr al spinal canal or neural foraminal stenosis results. Soft tissues: Normal. There is no evidence of suspicious enhancement. No evidence of an abscess or findings to suggest disc itis. IMPRESSION: No evidence of an abscess or findings to suggest discitis. DATA REPOSITORY:
--- NOTE | 2024-08-07 06:17 | DI.MRI_ITS ---
Exam(s) MR CERVICAL SPINE WO/W EXAM: MR CERVICAL SPINE WO/W CLINICAL HISTORY: recent spinal epidural abscess, ill appearing TECHNIQUE: Multiplanar multisequence MRI of the cervical spine was performed. CONTRAST MATERIAL: IV Contrast: 20 ML of Dotarem contrast administered. COMPARISON: CT HEAD WITHOUT CONTRAST from 03/30/2009 MR MR THORACIC SPINE WO/W from 08/07/2024 FINDINGS: There is mild motion artifact on the MRIs of the cervical, thoracic and lumbar spine. BONES: Vertebral body heights are maintained. Intervertebral disc spaces are normal. Alignment is nor mal. Bone marrow signal intensity is within normal limits. CERVICAL CORD: Craniovertebral junction is unremarkable. The cervical cord is normal size and signal intensity. No lesion is present. SOFT TISSUES: There is a homogeneously enhancing lesion seen in the region of the pituitary sella. I t appears enlarged for a normal pituitary gland. Pituitary adenoma should be considered. It is inco mpletely imaged on this examination. It measures at least 2.7 cm in AP diameter. ENHANCEMENT: No suspicious enhancement identified. No evidence of an abscess or discitis. C2-3: No disc herniation or bulge is identified. No significant central spinal canal or neural forami nal stenosis. C3-4: No disc herniation or bulge is identified. No significant central spinal canal or neural forami nal stenosis C4-5: No disc herniation or bulge is identified. No significant central spinal canal or neural forami nal stenosis C5-6: No disc herniation or bulge is identified. No significant central spinal canal or neural forami nal stenosis C6-7: No disc herniation or bulge is identified. No significant central spinal canal or neural forami nal stenosis C7-T1: No disc herniation or bulge is identified. No significant central spinal canal or neural jun inal stenosis IMPRESSION: 1. No evidence of an abscess or findings to suggest discitis. 2. No focal disc herniation/bulge, central spinal canal stenosis or neural foraminal stenosis in the cervical spine. 3. Incompletely imaged enhancing mass seen at the superior aspect of the skull base anteriorly. This may represent a pituitary mass or possibly a mucous retention cyst or polyp in the sphenoid sinus. A nonemergent CT or MRI of the brain is recommended for further evaluation. Unexpected findings DATA REPOSITORY:
--- NOTE | 2024-08-07 06:17 | DI.MRI_ITS ---
Exam(s) MR LUMBAR SPINE WO/W EXAM: MR LUMBAR SPINE WO/W CLINICAL HISTORY: recent spinal epidural abscess, ill appearing. TECHNIQUE: Multiplanar multisequence MRI of the Lumbar Spine was performed. CONTRAST MATERIAL: IV Contrast: 20 mL of Dotarem contrast administered. COMPARISON: MR MR LUMBAR SPINE WO/W from 01/03/2023 FINDINGS: Bones: The last intervertebral disc space is designated the L5/S1 level for the numbering purpose of this examination. The vertebral body heights are well maintained. Alignment is satisfactory. Degener ative endplate signal changes are present particularly at L4-L5. Cord: The conus tip ends at the L1 level. It is of normal size and signal intensity. T12-L1: No disc herniations or bulges are present. No central spinal canal or neural foraminal stenos is. L1-2: No disc herniations or bulges are present. No central spinal canal or neural foraminal stenosis . L2-3: No disc herniations or bulges are present. No central spinal canal or neural foraminal stenosis . L3-4: No disc herniations or bulges are present. There are degenerative changes of the facets present . There is a mild diffuse disc bulge which mildly extends into the left neural foramen. There is mi ld left neural foraminal narrowing. No significant central spinal canal stenosis is seen. No right neural foraminal stenosis is present. L4-5: There is a diffuse disc bulge. There are degenerative changes of the facets present. There is mild narrowing of the central spinal canal. There is mild bilateral neural foraminal stenosis. L5-S1: There is a diffuse disc bulge. There are mild degenerative changes of the facets. No signifi cant central spinal canal stenosis is seen. There is moderate bilateral neural foraminal stenosis. Soft tissues: The visualized SI joints and sacrum are well maintained. The paraspinal soft tissues ar e unremarkable. There is no evidence of suspicious enhancement. There is no evidence of an abscess or findings to sug gest discitis. IMPRESSION: 1. Multilevel degenerative changes in the lumbar spine. 2. No evidence of epidural abscess or discitis. DATA REPOSITORY:
--- NOTE | 2024-08-07 06:33 | ED.GENADUL_ITS ---
Discharge Plan Discharge Details Chief Complaint: GenMedical Clinical Impression: Sepsis, Back pain, Cellulitis, IVDU (intravenous drug user) Primary Care Provider: Tiffany Houser V ED Provider: Aura Lipscomb Home Meds and New Rx's Prescriptions: No Action Mirena 1 EACH intrauterine device 1 insert intrauterine DIRECTED Patient Comments: pt states she has had for a year and half 04/20/16 acetaminophen [Mapap Extra Strength] 500 MG tablet 1,000 mg PO PRN PRN ibuprofen [Ibuprofen IB] 200 MG tablet 400 mg PO PRN PRN gabapentin 300 mg capsule 300 mg PO TID methadone 10 mg/mL Concentrate 170 mg PO DAILY Patient Comments: recent dose increase furosemide [Lasix] 20 mg tablet 20 mg PO DAILY Qty: 5 0RF nicotine [Nicoderm CQ] 21 mg/24 hr Patch 24 Hour 1 patch transdermal DAILY nicotine (polacrilex) 4 mg gum 4 mg PO DIRECTED Patient Comments: CHEW 1 GUM BY MOUTH DIRECTED atomoxetine 40 mg capsule 40 mg PO DAILY Patient Comments: TAKE 1 CAPSULE BY MOUTH EVERY MORNING doxycycline hyclate 100 mg capsule 100 mg PO DAILY Patient Comments: TAKE 1 CAPSULE BY MOUTH EVERY 12 HOURS FOR 10 DAYS mupirocin 2 % ointment TOPICAL Patient Comments: APPLY TOPICALLY TO THE AFFECTED AREA THREE TIMES DAILY FOR 10 DAYS hydroxyzine HCl 25 mg tablet 25 mg PO QID PRN Patient Comments: TAKE 1 TABLET BY MOUTH FOUR TIMES DAILY NEEDED FOR ANXIETY HPI General Mode of arrival: ambulatory . Date/Time Provider Initiated Documentation: 08/07/24 06:08 . Limitations to Documentation: no limitations . Information obtained by: patient and old records reviewed . HPI Narrative: 33yo F with hx IVDU, prior spine abscess a few years ago, presenting for acute mid back pain, N/V, and general malaise. Currently on doxycycline for cellulitis. [facility] records show found to have spinal epidural abscess in December of 2022 L3-S1 and blood cultures grew MRSA at this time. Patient reports that yesterday she began to have severe mid-low back pain, chills, and N/V. 3-4 episodes of nonbloody nonbilious emesis since 9pm yesterday. Symptoms feel similar to when she was diagnosed with her abscess 2 years ago. Had influenza recently (07/24/23). No numbness, tingling, weakness, bowel/bladder incontinence, or other concerns. Related Data Home Medications ?Medication ?Instructions ?Recorded ?Confirmed levonorgestrel 21 mcg/24 hr (up to 1 insert intrauterine DIRECTED 11/18/14 08/07/24 8 years) 52 mg intrauterine device (Mirena) acetaminophen 500 mg tablet (Mapap 1,000 mg PO PRN PRN 09/13/15 08/07/24 Extra Strength) ibuprofen 200 mg tablet (Ibuprofen 400 mg PO PRN PRN 01/17/16 08/07/24 IB) gabapentin 300 mg capsule 300 mg PO TID 04/18/21 08/07/24 methadone 10 mg/mL oral concentrate 170 mg PO DAILY 04/18/21 08/07/24 nicotine (polacrilex) 4 mg gum 4 mg PO DIRECTED 01/03/23 08/07/24 nicotine 21 mg/24 hr daily 1 patch transdermal DAILY 01/03/23 08/07/24 transdermal patch (Nicoderm CQ) furosemide 20 mg tablet (Lasix) 20 mg PO DAILY #5 tabs 01/13/24 08/07/24 atomoxetine 40 mg capsule 40 mg PO DAILY 08/07/24 08/07/24 doxycycline hyclate 100 mg capsule 100 mg PO DAILY 08/07/24 08/07/24 hydroxyzine HCl 25 mg tablet 25 mg PO QID PRN 08/07/24 08/07/24 mupirocin 2 % topical ointment applic topical 08/07/24 Previous Rx's ?Medication ?Instructions ?Recorded furosemide 20 mg tablet (Lasix) 20 mg PO DAILY #5 tabs 01/13/24 Allergies Allergy/AdvReac Type Severity Reaction Status Date / Time No Known Allergies Allergy Unverified 07/24/24 11:23 General Stated Complaint: GenMedical FRANCISCO: 2 Review of Systems Narrative: see HPI Exam Narrative Exam Narrative: General: Alert, diaphoretic Head: Normocephalic, atraumatic Neck: Trachea midline, ?Neck supple. ENT: ?MMM.? Cardiac: ?Tachycardiac, regular, no murmurs appreciated Resp: No respiratory distress. CTAB. Abd: ?Soft, non-distended, nontender : ?No suprapubic tenderness. Extremities: ?No deformities.? No peripheral edema. Skin: Cellulitis right flank and left flank (right more severe) as well as posterior right leg. Scattered scabs across extremities. Neuro: ? GCS 15.? PERRL.? EOMI.? Fluent speech, no dysarthria. Motor- 5/5 strength symmetric bilateral upper and lower extremities including shoulder abductors/adductors, elbow flexors/extensors, wrist flexors/extensors, finger abductors/adductors, hipflexors/extensors, knee flexors/extensors, ankle dorsiflexors and planter flexors. Sensation- ?Intact to light touch and symmetric multiple dermatomes including upper and lower extremities. No saddle anesthesia Reflexes- 2/4 achilles & patellar, no clonus Course Vital Signs Vital signs: Vital Signs Temperature 37.6 C 08/07/24 06:05 Pulse 120 H 08/07/24 06:05 Respiratory Rate 21 08/07/24 06:05 Blood Pressure 150/98 H 08/07/24 06:05 Pulse Oximetry 97 08/07/24 06:05 Temperature 37.9 C H 08/07/24 06:09 Temperature Source Tympanic 08/07/24 06:09 Pulse 111 H 08/07/24 06:09 Respiratory Rate 19 08/07/24 06:09 Respiratory Effort Normal, Non-Labored 08/07/24 06:09 Respiratory Depth Normal 08/07/24 06:09 Respiratory Pattern Normal 08/07/24 06:09 Blood Pressure 152/85 H 08/07/24 06:09 Blood Pressure Position Sitting 08/07/24 06:09 Pulse Oximetry 94 08/07/24 06:09 Oxygen Delivery Method Room Air 08/07/24 06:09 Oxygen Flow Rate 0 08/07/24 06:05 Pain Level 10 08/07/24 06:09 Lab/Test Results Lab/Test Results: 08/07/24 06:15 Blood Blood Culture - Pending 08/07/24 06:15 Blood Blood Culture - Pending Medical Decision Making 33yo F with hx IVDU, prior spine abscess a few years ago, presenting for acute mid back pain, N/V, and general malaise onset yesterday. Denies neurologic symptoms. [facility] records show found to have spinal epidural abscess in December of 2022 L3-S1 and blood cultures grew MRSA at this time. Diaphoretic on arrival, tachycardiac to 110's-120's, borderline febrile at 37.9. Good BP. Multiple areas of cellulitis on exam concerning for MRSA. Low thoracic midline tenderness on exam, normal neurologic exam. Not suggestive of acute cord compression or cauda equina at this time; history and exam concerning for recurrent spinal epidural abscess and/or sepsis. Will treat empirically for possible sepsis with broad spectrum abx with MRSA coverage (vanco, flagyl, ceftriaxone) and IVFB while awaiting results of workup. Will get MRI here when available this morning; will be available here sooner than patient would be able to be transferred. Patient with difficult IV access delaying initiation of abx and fluids. Labs reviewed as below, CBC with mild leukocytosis 15 12, CMP with no actionable abnormalities, Mg low at 1.4 (oral replacement ordered), lactate reassuring at 2.0, ESR and CRP slightly elevated, UA pending. Blood cultures sent. Will be signed out to oncoming physician, plan to followup procal, UA, viral swab, CXR, & MRI. Quality:SDOH Health Related Social Needs: No Data to Display PFSH All Active Problems IVDU (intravenous drug user) (Acute) Cellulitis (Acute) Back pain (Acute) Sepsis (Acute) Influenza A (Acute) Polysubstance abuse (Acute) Acute hypokalemia (Acute) Dehydration (Acute) Cellulitis of left arm (Acute) Previous delivery, delivered (Acute) Medical History Drug abuse Heroin abuse Asthma Migraine Surgical History section (04/01/10) failed induction for post dates. No dilation. Velamentouse cord insertion noted on path report. No distress. Male named Alli 7lb 14oz. Family History Father Essential hypertension Diabetes [id number] [place]'s chorea Social History Smoking/Tobacco Use Status: Current every day Tobacco Type: cigarettes Years smoked: 15 Smoking risk assessment performed?: Yes Alcohol Intake: never Drug use: Daily Substance use type: heroin, painkillers and IV drugs Details: Hx of drug abuse, currently been w/ [facility] x3mos ago 08/07/2024 Housing: house Do you feel safe at home: Yes Do you feel safe in your relationship?: Yes
[2024-08-07 07:21] LABS: Abs Immature Grans 0.08 10^3/uL (0.0-0.06); Absolute Lymphocyte Count 0.18 10^3/uL (1.2-3.4); Absolute Monocyte Count 0.32 10^3/uL (0.1-0.8); Absolute Neutrophil Count 11.62 10^3/uL (1.2-6.7); Basophils % 0.2 %; HCT 41.6 % (36.0-46.0); HGB 13.2 g/dL (11.2-15.7); Immature Grans % 0.7 %; Lymphocytes % 1.5 %; MCHC 31.7 % (32.0-36.0); MCV 85 fL (80-95); MPV 9.3 fL (8.0-11.0); Monocytes % 2.6 %; Platelet Count 143 10^3/uL (130-400); RBC 4.88 10^6/uL (3.93-5.22); RDW-SD 43.4 fL; WBC 12.23 10^3/uL (4.4-10.8)
[2024-08-07 07:27] LABS: Absolute Basophil Count 0.02 10^3/uL (0.0-0.2)
[2024-08-07 07:28] LABS: ESR 30 mm/hr (0-20)
[2024-08-07 07:37] LABS: Magnesium 1.4 mg/dL (1.8-2.4)
[2024-08-07 07:43] LABS: ALT 18 U/L (14-59); AST 12 U/L (15-37); Albumin 3.1 g/dL (3.4-5.0); Alkaline Phosphatase 65 U/L (46-116); Anion Gap 8.3 mmol/L (3-11); BUN 15 mg/dL (7-18); Bilirubin, Total 0.76 mg/dL (0.2-1.0); C-Reactive Protein 13.94 mg/dL (<or=0.5); CO2 26.7 mmol/L (21.0-32.0); CREATININE 1.2 mg/dL (0.55-1.02); Calcium 9.1 mg/dL (8.5-10.1); Chloride 100 mmol/L (98-107); Estimated GFR 60.54 (mL/min/1.73m2); Glucose 122 mg/dL (74-106); Potassium 3.7 mmol/L (3.5-5.1); Sodium 135 mmol/L (136-145); Total Protein 7.6 g/dL (6.4-8.2)
[2024-08-07] MEDS: Normal Saline 1,000 ML 1000 ML IV ×2 (07:52→12:38)
[2024-08-07 07:59] LABS: COVID-19 PCR Negative (Negative); Influenza A PCR Negative (Negative); Influenza B PCR Negative (Negative); RSV PCR Negative (Negative)
[2024-08-07 08:00] LABS: Source Nasopharynx
[2024-08-07 08:15] LABS: Procalcitonin 0.95 ng/mL
--- NOTE | 2024-08-07 08:17 | ED.PROG_ITS ---
Date of service: 08/07/24 Time of Service: 08:17 Medical Decision Making I received signout on 33-year-old female with a history of IVDU, back pain and borderline febrile, prior spinal epidural abscess felt similar. Neuro intact. Getting vanc/flagyl/ceftriaxone. She is pending UA/CXR & MRI spine. She will require reassessment. She also has cellulitis. She is receiving fluids and her tachycardia has resolved. 11 AM Patient difficult IV access. I attempted to place a left proximal 18-gauge IV. Using ultrasound guidance I was in the basilic vein of the left arm. Patient initially had good blood return however the process of securing the line it was no longer patent on bubble study. Line was removed. Subsequently patient's nurse Roderick placed a left 18-gauge IV in the patient's AC. I repeated blood work lactate and troponin in the event there is a component of endocarditis with the patient's back pain. She had temperature elevated to the upper limit of normal at 37.9 for which I gave her 1 g of IV acetaminophen. She is heading down for MRI. 2:33 PM Patient's MRI was negative for any spinal epidural abscess and any discitis. I reassessed her and she does have bilateral excoriations to her flanks with some superimposed cellulitic changes right greater than left. Given elevated normal temperature and leukocytosis I feel hospitalization is warranted to ensure she does not become bacteremic in the setting of her IV drug use. Reassuring troponins. Furthermore she reports she had been on outpatient doxycycline and given her cellulitis she likely has failed outpatient management. Will swab for MRSA. I was in touch with Dr. Graham who graciously agreed to accept the patient for hospitalization. Quality:[facility] Health Related Social Needs: No Data to Display Discharge Plan Disposition Patient Disposition: Admit to [facility] Discharge Details Chief Complaint: GenMedical Clinical Impression: Sepsis, Back pain, Cellulitis, IVDU (intravenous drug user) Admit Date/Time: 08/07/24 14:40 Admit Provider: Niko Graham Attending Provider: Niko Graham Primary Care Provider: Tiffany Houser V ED Provider: Wade Lara Discharge Data Discharge Date/Time-TO BE ENTERED AT DEPARTURE: 08/07/24 15:53
[2024-08-07 09:30] LABS: HCG Qual (Serum) Negative
--- NOTE | 2024-08-07 09:59 | DI.RAD_ITS ---
Exam(s) XR PORTABLE CHEST AP EXAM: XR PORTABLE CHEST AP CLINICAL HISTORY: Sepsis TECHNIQUE: 2D digital imaging was performed of the chest. One image was obtained. An AP view was ob tained. COMPARISON: CR XR CHEST 2V PA LATERAL from 07/24/2024 FINDINGS: MEDIASTINUM: Normal. HEART: Normal. PULMONARY VASCULATURE: Normal. LUNGS: Clear. PLEURAL SPACE: No pleural effusion or pneumothorax. BONE:Within normal limits for the patient's age. OTHER FINDINGS:Normal. IMPRESSION: No acute pulmonary findings. DATA REPOSITORY: RADIATION DOSE DELIVERED:
[2024-08-07] MEDS: Magnesium Oxide 400 MG TAB 800 MG PO (10:27)
[2024-08-07] MEDS: ACETAMINOPHEN 1,000 MG/100 ML BAG 400 MG IVPB (10:27)
[2024-08-07 10:42] LABS: BE (Venous) 0 mmol/L (-2-3); HCO3 (Venous) 25 mmol/L (23-28); O2 Sat (Venous) 79 %; TCO2 (Venous) 22 mmol/L (24-29); pCO2 (Venous) 37 mmHg (41-51); pH (Venous) 7.43 (7.31-7.41); pO2 (Venous) 42 mmHg
[2024-08-07 11:07] LABS: BUN 14 mg/dL (7-18); CREATININE 1.1 mg/dL (0.55-1.02); Calcium 8.4 mg/dL (8.5-10.1); Glucose 102 mg/dL (74-106)
[2024-08-07 11:08] LABS: Anion Gap 9.3 mmol/L (3-11); CO2 25.7 mmol/L (21.0-32.0); Chloride 101 mmol/L (98-107); Potassium 3.4 mmol/L (3.5-5.1); Sodium 136 mmol/L (136-145); Troponin I 4 ng/L (<or=51)
[2024-08-07] MEDS: Normal Saline Flush 10 ML SYR IVP ×2 (11:38→20:53)
[2024-08-07] MEDS: Midazolam 2 MG/2 ML VIAL IVP (11:39)
[2024-08-07] MEDS: Gadoterate meglumine 20 ML SYRINGE IVP (11:39)
[2024-08-07] MEDS: VANCOMYCIN 2,000 MG in Normal Saline 500 ML 250 MG IVPB (12:25)
--- NOTE | 2024-08-07 12:40 | NUR.NOTE ---
pt left for MRI 2nd troponin for 1100 delayed until her return at 1230
[2024-08-07] MEDS: metroNIDAZOLE 500 MG/100 ML BAG 100 MG IVPB (12:50)
[2024-08-07] MEDS: cefTRIAXone 2 GM/50 ML BAG IVPB (12:50)
[2024-08-07 12:58] LABS: Troponin I < 4 ng/L (<or=51)
--- NOTE | 2024-08-07 14:40 | HPE_ITS ---
Date of service: 08/07/24 Time of Service: 14:40 Assessment and Plan Assessment and plan (1) Sepsis: Status: Acute Assessment and plan: -patient meets criteria for sepsis on admission with WBC 12.2, HR >100, and source of infection being bilateral flank (R>L) cellulitis -there was initial concern for spinal abscess as patient has history of, and was initially complaing of back pain, but MRI done in ED was without acute findings -patient was given CTX, flagyl and vanc in the ED -will continue IV vanc -f/u blood culture results given history of and ongoing IV drug use, and can DC on oral abx once blood cultures are negative (2) Cellulitis: Status: Acute Assessment and plan: -source of infection as noted above (3) IVDU (intravenous drug user): Status: Acute History of Present Illness History of Present Illness Chief Complaint: back pain, N/V, malaise and chills Narrative: 33yo female with history of MRSA bacteremia and spinal abscess ~2yrs ago, frequent episodes of cellulitis, and ongoing IV drug use who presents to the ED with complaints of back pain, N/V, malaise and chills. Patient states that her back pain began yesterday and was described as in the mid-back and severe, similar to when she had her pervious spinal abscess. She also reported chills, malaise, nausea, and non-bilious vomiting prior to arrival. She denies any headache, lightheadedness, dizziness, cough, fever, or chest pain. In the ED the patient was noted to be tachycardic with HR in the 100's with normal bllod pressure and RR. Her temp peaked at 100.2oF for which she was given IV tylenol. Physical exam was normal except for signs of severe cellulitis of bilateral flank areas (R>L). Her CBC showed a WBC of 12.2, and her CRP was 13.9 but the remained of her labs were WNL. Given IV drug use and history of spinal abscess blood cultures were drawn, she was given IV vanc, CTX and flagyl, and MRI of the lumbar spine was ordered but did not show any acute findings. At which time emergency room physician paged hospitalist for admission of a patient with sepsis secondary to cellulitis with suspicion for bacteremia requiring IV vanc. Review of Systems All systems reviewed & are unremarkable except as noted in HPI and below PFSH All Active Problems Sepsis due to cellulitis (Acute) IVDU (intravenous drug user) (Acute) Cellulitis (Acute) Back pain (Acute) Sepsis (Acute) Influenza A (Acute) Polysubstance abuse (Acute) Acute hypokalemia (Acute) Dehydration (Acute) Cellulitis of left arm (Acute) Previous delivery, delivered (Acute) Medical History Drug abuse Heroin abuse Asthma Migraine Surgical History section (04/01/10) failed induction for post dates. No dilation. Velamentouse cord insertion noted on path report. No distress. Male named Alli 7lb 14oz. Family History Father Essential hypertension Diabetes [id number] [place]'s chorea Social History Smoking/Tobacco Use Status: Current every day Tobacco Type: cigarettes Years smoked: 15 Smoking risk assessment performed?: Yes Alcohol Intake: never Drug use: Daily Substance use type: heroin, painkillers and IV drugs Details: Hx of drug abuse, currently been w/ [facility] x3mos ago 08/07/2024 Housing: house Do you feel safe at home: Yes Do you feel safe in your relationship?: Yes Meds Allergies and Home Medications Allergies Allergy/AdvReac Type Severity Reaction Status Date / Time No Known Allergies Allergy Verified 08/07/24 15:19 Home Medications ?Medication ?Instructions ?Recorded ?Confirmed ?Type levonorgestrel 21 mcg/24 hr (up to 1 insert intrauterine DIRECTED 11/18/14 08/07/24 History 8 years) 52 mg intrauterine device (Mirena) acetaminophen 500 mg tablet (Mapap 1,000 mg PO PRN PRN 09/13/15 08/07/24 History Extra Strength) ibuprofen 200 mg tablet (Ibuprofen 400 mg PO PRN PRN 01/17/16 08/07/24 History IB) gabapentin 300 mg capsule 300 mg PO TID 11/02/21 02/21/25 History methadone 10 mg/mL oral concentrate 170 mg PO DAILY 04/18/21 08/07/24 History nicotine (polacrilex) 4 mg gum 4 mg PO DIRECTED 01/03/23 08/07/24 History nicotine 21 mg/24 hr daily 1 patch transdermal DAILY 01/03/23 08/07/24 History transdermal patch (Nicoderm CQ) furosemide 20 mg tablet (Lasix) 20 mg PO DAILY #5 tabs 01/13/24 08/07/24 Rx atomoxetine 40 mg capsule 40 mg PO DAILY 08/07/24 08/07/24 History doxycycline hyclate 100 mg capsule 100 mg PO DAILY 08/07/24 08/07/24 History hydroxyzine HCl 25 mg tablet 25 mg PO QID PRN 08/07/24 08/07/24 History mupirocin 2 % topical ointment 1 applic topical TID 08/07/24 08/07/24 History Exam Narrative Exam Narrative: fatigued, morbidly obese female laying in bed in mild distress due to fever, AOx4, heart tachycardic with rates in the low 100's, regular rhythm, lungs CTAB, abdomen soft, non-tender, non-distended, area of excoriated skin with surrounding erythema on bilateral flanks Results Labs 08/07/24 07:05 08/07/24 10:37 Labs: Laboratory Results - last 24 hr 08/07/24 08/07/24 08/07/24 07:05 07:39 08:45 WBC 12.23 H RBC 4.88 Hgb 13.2 Hct 41.6 MCV 85 MCH 27.0 MCHC 31.7 L RDW 14.0 Plt Count 143 MPV 9.3 Immature Gran % 0.7 Neutrophils % 95.0 Lymphocytes % 1.5 Monocytes % 2.6 Eosinophils % 0.0 Basophils % 0.2 Nucleated RBC % 0.0 Absolute Neutrophils 11.62 H Absolute Lymphocytes 0.18 L Absolute Monocytes 0.32 Absolute Eosinophils 0.00 Absolute Basophils 0.02 ESR 30 H VBG pH VBG pCO2 VBG pO2 VBG HCO3 VBG Total CO2 VBG O2 Saturation VBG Base Excess VBG Lactate 2.0 Sodium 135 L Potassium 3.7 Chloride 100 Carbon Dioxide 26.7 Anion Gap 8.3 BUN 15 Creatinine 1.2 H Est GFR (CKD-EPI 2020) 60.54 Glucose 122 H Calcium 9.1 Magnesium 1.4 L Total Bilirubin 0.76 AST 12 L ALT 18 Alkaline Phosphatase 65 Troponin I C-Reactive Protein 13.94 H Total Protein 7.6 Albumin 3.1 L Procalcitonin 0.95 Serum HCG, Qual Cancelled Negative COVID-19 Source Nasopharynx SARS-CoV-2 (PCR) Negative Influenza Type A (PCR) Negative Influenza Type B (PCR) Negative RSV (PCR) Negative 08/07/24 08/07/24 08/07/24 10:37 12:30 13:00 WBC RBC Hgb Hct MCV MCH MCHC RDW Plt Count MPV Immature Gran % Neutrophils % Lymphocytes % Monocytes % Eosinophils % Basophils % Nucleated RBC % Absolute Neutrophils Absolute Lymphocytes Absolute Monocytes Absolute Eosinophils Absolute Basophils ESR VBG pH 7.43 H VBG pCO2 37 L VBG pO2 42 VBG HCO3 25 VBG Total CO2 22 L VBG O2 Saturation 79 VBG Base Excess 0 VBG Lactate 1.0 Sodium 136 Potassium 3.4 L Chloride 101 Carbon Dioxide 25.7 Anion Gap 9.3 BUN 14 Creatinine 1.1 H Est GFR (CKD-EPI 2020) 67.20 Glucose 102 Calcium 8.4 L Magnesium Total Bilirubin AST ALT Alkaline Phosphatase Troponin I 4 < 4 Cancelled C-Reactive Protein Total Protein Albumin Procalcitonin Serum HCG, Qual COVID-19 Source SARS-CoV-2 (PCR) Influenza Type A (PCR) Influenza Type B (PCR) RSV (PCR) Last Vital Signs Temp 100.2 F H 08/07/24 06:09 Pulse 93 H 08/07/24 14:17 Resp 22 08/07/24 14:17 BP 156/95 H 08/07/24 14:17 Pulse Ox 96 08/07/24 13:40 Time Spent Time spent with Patient: >75 minutes Time was spent: preparing to see the patient(eg.review tests), obtaining and/or reviewing separately otained hiistory, ordering medications,tests, procedures, referring, communicating with other health healthcare administration intern, indepentently interpreting results, counseling the patient and care coordination
[2024-08-07 15:03] LABS: Bilirubin Negative (Negative); Blood Moderate (Negative); Clarity Clear (Clear); Glucose Negative (Negative); Ketones Negative (Negative); Leukocyte Esterase Negative (Negative); Nitrite Negative (Negative); Specific Gravity 1.025 (1.005-1.025)
[2024-08-07 15:09] LABS: Bacteria Few HPF (Negative); Epithelial Cells Few HPF (Negative); Other Cells Negative (Negative); WBC 0-2 HPF (0-5)
[2024-08-07 15:10] LABS: C & S Indicated? No; Casts Negative LPF (Negative); Crystals Negative HPF (Negative); Mucus Trace (Negative)
--- NOTE | 2024-08-07 15:28 | W.PC.ACHO ---
Registration Status: Primary Language: Preferred Language: ED Information & Data Chief Complaint GenMedical 08/07/24 06:46 Triage Note Had a spinal abscess 'a few 08/07/24 06:05 years ago' and was transferred to [facility] for IV abx. Feels like its happening again. Nausea, vomiting, back pain increasing over last couple days. Pale and diaphoretic on presentation. Was seen earlier this month for Flu A +. Took tylenol and ibuprofen yesterday. Medical / Surgical History (Last Reviewed 01/13/24 @ 02:28 by Royer Peterson DO) Drug abuse Heroin abuse Asthma Migraine (Last Reviewed 01/13/24 @ 02:28 by Royer Peterson DO) section (04/01/10) Most Recent Vital Signs Temperature 37.1 C 08/07/24 15:23 Temperature Source Tympanic 08/07/24 06:09 Pulse 93 H 08/07/24 14:17 Pulse 101 H 08/07/24 14:17 Respiratory Rate 22 08/07/24 14:17 Respiratory Effort Normal, Non-Labored 08/07/24 06:09 Respiratory Depth Normal 08/07/24 06:09 Respiratory Pattern Normal 08/07/24 06:09 Blood Pressure 156/95 H 08/07/24 14:17 Blood Pressure Mean 112 08/07/24 14:17 Blood Pressure Position Sitting 08/07/24 06:09 Pulse Oximetry 96 08/07/24 13:40 Oxygen Delivery Method Room Air 08/07/24 06:09 Oxygen Flow Rate 0 08/07/24 06:05 Pain Level 10 08/07/24 06:09 Allergies No Known Allergies Allergy (Verified 08/07/24 15:19) Precautions Isolation Standard precaution 08/07/24 06:09 Active Medications Generic Name Dose Route Start Last Admin Trade Name Freq PRN Reason Stop Dose Admin Gadoterate Meglumine 20 ml 08/07/24 11:45 08/07/24 11:39 Gadoterate Meglumine 20 Ml Syringe IVP 09/06/24 23:59 20 ml DIRECTED GUANACO Administration Sodium Chloride 0 ml 08/07/24 11:38 08/07/24 11:38 Normal Saline Flush 10 Ml Syr IVP 10 ml PRN PRN Administration IV IV Catheter Type [Left Saline Lock Antecubital] IV Catheter Type [Right Diffusics Antecubital] IV Catheter Gauge [Left 18 Antecubital] IV Catheter Gauge [Right 20 Antecubital] Diagnostics 08/07/24 08/07/24 08/07/24 Range/Units 14:51 14:33 13:00 WBC (4.4-10.8) 10^3/uL RBC (3.93-5.22) 10^6/uL Hgb (11.2-15.7) g/dL Hct (36.0-46.0) % MCV (80-95) fL MCH (27.0-33.0) pg MCHC (32.0-36.0) % RDW (11.7-14.6) % Plt Count (130-400) 10^3/uL MPV (8.0-11.0) fL Immature Gran % % Neutrophils % % Lymphocytes % % Monocytes % % Eosinophils % % Basophils % % Nucleated RBC % (0.0-0.3) % Absolute Neutrophils (1.2-6.7) 10^3/uL Absolute Lymphocytes (1.2-3.4) 10^3/uL Absolute Monocytes (0.1-0.8) 10^3/uL Absolute Eosinophils (0.0-0.7) 10^3/uL Absolute Basophils (0.0-0.2) 10^3/uL ESR (0-20) mm/hr VBG pH (7.31-7.41) VBG pCO2 (41-51) mmHg VBG pO2 mmHg VBG HCO3 (23-28) mmol/L VBG Total CO2 (24-29) mmol/L VBG O2 Saturation % VBG Base Excess (-2-3) mmol/L VBG Lactate (<or=2.0) mmol/L Sodium (136-145) mmol/L Potassium (3.5-5.1) mmol/L Chloride (98-107) mmol/L Carbon Dioxide (21.0-32.0) mmol/L Anion Gap (3-11) mmol/L BUN (7-18) mg/dL Creatinine (0.55-1.02) mg/dL Est GFR (CKD-EPI 2020) (mL/min/1.73m2) Glucose (74-106) mg/dL Calcium (8.5-10.1) mg/dL Magnesium (1.8-2.4) mg/dL Total Bilirubin (0.2-1.0) mg/dL AST (15-37) U/L ALT (14-59) U/L Alkaline Phosphatase (46-116) U/L Troponin I Cancelled (<or=51) ng/L C-Reactive Protein (<or=0.5) mg/dL Total Protein (6.4-8.2) g/dL Albumin (3.4-5.0) g/dL Procalcitonin ng/mL Serum HCG, Qual Urine Color Yellow (Yellow) Urine Clarity Clear (Clear) Urine pH 6.0 (5-8) Ur Specific [place] 1.025 (1.005-1.025) Urine Protein 30 H (Neg-Trace) mg/dL Urine Ketones Negative (Negative) mg/dL Urine Blood Moderate H (Negative) Urine Nitrite Negative (Negative) Urine Bilirubin Negative (Negative) Urine Urobilinogen 1.0 H (Up to 0.2) mg/dL Ur Leukocyte Esterase Negative (Negative) Urine RBC 10-20 H (0-2) HPF Urine WBC 0-2 (0-5) HPF Ur Epithelial Cells Few (Negative) HPF Urine Crystals Negative (Negative) HPF Urine Bacteria Few (Negative) HPF Urine Casts Negative (Negative) LPF Urine Mucus Trace (Negative) Urine Other Negative (Negative) Ur Culture Indicated? No Urine Glucose Negative (Negative) mg/dL COVID-19 Source SARS-CoV-2 (PCR) (Negative) Influenza Type A (PCR) (Negative) Influenza Type B (PCR) (Negative) RSV (PCR) (Negative) MRSA (TEM-PCR) Pending 08/07/24 08/07/24 08/07/24 Range/Units 12:30 10:37 08:45 WBC (4.4-10.8) 10^3/uL RBC (3.93-5.22) 10^6/uL Hgb (11.2-15.7) g/dL Hct (36.0-46.0) % MCV (80-95) fL MCH (27.0-33.0) pg MCHC (32.0-36.0) % RDW (11.7-14.6) % Plt Count (130-400) 10^3/uL MPV (8.0-11.0) fL Immature Gran % % Neutrophils % % Lymphocytes % % Monocytes % % Eosinophils % % Basophils % % Nucleated RBC % (0.0-0.3) % Absolute Neutrophils (1.2-6.7) 10^3/uL Absolute Lymphocytes (1.2-3.4) 10^3/uL Absolute Monocytes (0.1-0.8) 10^3/uL Absolute Eosinophils (0.0-0.7) 10^3/uL Absolute Basophils (0.0-0.2) 10^3/uL ESR (0-20) mm/hr VBG pH 7.43 H (7.31-7.41) VBG pCO2 37 L (41-51) mmHg VBG pO2 42 mmHg VBG HCO3 25 (23-28) mmol/L VBG Total CO2 22 L (24-29) mmol/L VBG O2 Saturation 79 % VBG Base Excess 0 (-2-3) mmol/L VBG Lactate 1.0 (<or=2.0) mmol/L Sodium 136 (136-145) mmol/L Potassium 3.4 L (3.5-5.1) mmol/L Chloride 101 (98-107) mmol/L Carbon Dioxide 25.7 (21.0-32.0) mmol/L Anion Gap 9.3 (3-11) mmol/L BUN 14 (7-18) mg/dL Creatinine 1.1 H (0.55-1.02) mg/dL Est GFR (CKD-EPI 2020) 67.20 (mL/min/1.73m2) Glucose 102 (74-106) mg/dL Calcium 8.4 L (8.5-10.1) mg/dL Magnesium (1.8-2.4) mg/dL Total Bilirubin (0.2-1.0) mg/dL AST (15-37) U/L ALT (14-59) U/L Alkaline Phosphatase (46-116) U/L Troponin I < 4 4 (<or=51) ng/L C-Reactive Protein (<or=0.5) mg/dL Total Protein (6.4-8.2) g/dL Albumin (3.4-5.0) g/dL Procalcitonin ng/mL Serum HCG, Qual Negative Urine Color (Yellow) Urine Clarity (Clear) Urine pH (5-8) Ur Specific [place] (1.005-1.025) Urine Protein (Neg-Trace) mg/dL Urine Ketones (Negative) mg/dL Urine Blood (Negative) Urine Nitrite (Negative) Urine Bilirubin (Negative) Urine Urobilinogen (Up to 0.2) mg/dL Ur Leukocyte Esterase (Negative) Urine RBC (0-2) HPF Urine WBC (0-5) HPF Ur Epithelial Cells (Negative) HPF Urine Crystals (Negative) HPF Urine Bacteria (Negative) HPF Urine Casts (Negative) LPF Urine Mucus (Negative) Urine Other (Negative) Ur Culture Indicated? Urine Glucose (Negative) mg/dL COVID-19 Source SARS-CoV-2 (PCR) (Negative) Influenza Type A (PCR) (Negative) Influenza Type B (PCR) (Negative) RSV (PCR) (Negative) MRSA (TEM-PCR) 08/07/24 08/07/24 Range/Units 07:39 07:05 WBC 12.23 H (4.4-10.8) 10^3/uL RBC 4.88 (3.93-5.22) 10^6/uL Hgb 13.2 (11.2-15.7) g/dL Hct 41.6 (36.0-46.0) % MCV 85 (80-95) fL MCH 27.0 (27.0-33.0) pg MCHC 31.7 L (32.0-36.0) % RDW 14.0 (11.7-14.6) % Plt Count 143 (130-400) 10^3/uL MPV 9.3 (8.0-11.0) fL Immature Gran % 0.7 % Neutrophils % 95.0 % Lymphocytes % 1.5 % Monocytes % 2.6 % Eosinophils % 0.0 % Basophils % 0.2 % Nucleated RBC % 0.0 (0.0-0.3) % Absolute Neutrophils 11.62 H (1.2-6.7) 10^3/uL Absolute Lymphocytes 0.18 L (1.2-3.4) 10^3/uL Absolute Monocytes 0.32 (0.1-0.8) 10^3/uL Absolute Eosinophils 0.00 (0.0-0.7) 10^3/uL Absolute Basophils 0.02 (0.0-0.2) 10^3/uL ESR 30 H (0-20) mm/hr VBG pH (7.31-7.41) VBG pCO2 (41-51) mmHg VBG pO2 mmHg VBG HCO3 (23-28) mmol/L VBG Total CO2 (24-29) mmol/L VBG O2 Saturation % VBG Base Excess (-2-3) mmol/L VBG Lactate 2.0 (<or=2.0) mmol/L Sodium 135 L (136-145) mmol/L Potassium 3.7 (3.5-5.1) mmol/L Chloride 100 (98-107) mmol/L Carbon Dioxide 26.7 (21.0-32.0) mmol/L Anion Gap 8.3 (3-11) mmol/L BUN 15 (7-18) mg/dL Creatinine 1.2 H (0.55-1.02) mg/dL Est GFR (CKD-EPI 2020) 60.54 (mL/min/1.73m2) Glucose 122 H (74-106) mg/dL Calcium 9.1 (8.5-10.1) mg/dL Magnesium 1.4 L (1.8-2.4) mg/dL Total Bilirubin 0.76 (0.2-1.0) mg/dL AST 12 L (15-37) U/L ALT 18 (14-59) U/L Alkaline Phosphatase 65 (46-116) U/L Troponin I (<or=51) ng/L C-Reactive Protein 13.94 H (<or=0.5) mg/dL Total Protein 7.6 (6.4-8.2) g/dL Albumin 3.1 L (3.4-5.0) g/dL Procalcitonin 0.95 ng/mL Serum HCG, Qual Cancelled Urine Color (Yellow) Urine Clarity (Clear) Urine pH (5-8) Ur Specific [place] (1.005-1.025) Urine Protein (Neg-Trace) mg/dL Urine Ketones (Negative) mg/dL Urine Blood (Negative) Urine Nitrite (Negative) Urine Bilirubin (Negative) Urine Urobilinogen (Up to 0.2) mg/dL Ur Leukocyte Esterase (Negative) Urine RBC (0-2) HPF Urine WBC (0-5) HPF Ur Epithelial Cells (Negative) HPF Urine Crystals (Negative) HPF Urine Bacteria (Negative) HPF Urine Casts (Negative) LPF Urine Mucus (Negative) Urine Other (Negative) Ur Culture Indicated? Urine Glucose (Negative) mg/dL COVID-19 Source Nasopharynx SARS-CoV-2 (PCR) Negative (Negative) Influenza Type A (PCR) Negative (Negative) Influenza Type B (PCR) Negative (Negative) RSV (PCR) Negative (Negative) MRSA (TEM-PCR) 08/07/24 07:05 Blood Culture - Pending Blood 08/07/24 07:05 Blood Culture - Pending Blood Intake and Output - 24 Hour Total 08/07/24 06:02 thru 08/07/24 15:21 Intake Total 2750 Output Total 400 Balance 2350 Weight 113.398 kg Intake: IV 2750 Output: Urine 400 Falls Risk Assessment History of Falls No History 08/07/24 06:09 Contributing Factors No Factors 08/07/24 06:09 Ambulatory Aids Independent 08/07/24 06:09 Tubes/Lines None 08/07/24 06:09 Gait Evaluation No gait disturbance 08/07/24 06:09 Cognition No cognitive impairment 08/07/24 06:09 Fall Total Score 0 08/07/24 06:09 Level of Risk Standard/Low Risk 08/07/24 06:09 Problems (Last Reviewed 01/13/24 @ 02:28 by Royer Peterson DO) IVDU (intravenous drug user) (Acute) Cellulitis (Acute) Sepsis (Acute) Notes 08/07/24 12:40 Nursing Notes by Matilda Wilson pt left for MRI 2nd troponin for 1100 delayed until her return at 1230 Initialized on 08/07/24 12:40 - END OF NOTE v v v v v v v v v Sending and/or Receiving Nurses: Please use comment section below to note any information pertinent to the patient hand-off not included above. Information / Comments: Report received from: M/S paged at 14:40 for admission. Called ED at 15:15 for report, received from Paige Wilson RN. MRSA swab pending, will place on contact precautions. ED V: 98.7, 134/73, 98, RR 25, 98% o RA.
[2024-08-07 16:10] LABS: MRSA PCR Positive (Negative)
[2024-08-07] MEDS: Acetaminophen 325 MG TAB PO ×2 (16:58→20:52)
[2024-08-08] MEDS: VANCOMYCIN/WATER (PEG) 1.25 GM/250 ML BAG IV ×2 (00:58→11:21)
[2024-08-08] MEDS: Acetaminophen 325 MG TAB PO ×2 (02:56→11:21)
[2024-08-08 02:58] VITALS: BP 93/68; PULSE 69; RESP 16; TEMP 36; O2SAT 98
[2024-08-08 07:04] LABS: HCT 34.1 % (36.0-46.0); HGB 11.2 g/dL (11.2-15.7); MCH 27.3 pg (27.0-33.0); MCHC 32.8 % (32.0-36.0); MCV 83 fL (80-95); MPV 9.5 fL (8.0-11.0); Platelet Count 108 10^3/uL (130-400); RDW 14.5 % (11.7-14.6); RDW-SD 43.6 fL
[2024-08-08 07:18] LABS: Anion Gap 4.3 mmol/L (3-11); BUN 16 mg/dL (7-18); CO2 27.7 mmol/L (21.0-32.0); Calcium 8.4 mg/dL (8.5-10.1); Chloride 106 mmol/L (98-107); Estimated GFR 75.34 (mL/min/1.73m2); Glucose 115 mg/dL (74-106); Potassium 3.2 mmol/L (3.5-5.1); Sodium 138 mmol/L (136-145)
[2024-08-08 07:39] VITALS: BP 99/68; PULSE 69; RESP 16; TEMP 36; O2SAT 100
[2024-08-08] MEDS: Normal Saline Flush 10 ML SYR IVP ×2 (07:40→20:21)
[2024-08-08] MEDS: Enoxaparin 40 MG/0.4 ML SYR SC (07:40)
[2024-08-08] MEDS: Methadone Liquid 10 MG/ML 170 MG PO (08:31)
--- NOTE | 2024-08-08 09:21 | NUR.NOTE ---
Nursing Note: Patient concerned that she will be unable to get to [facility] to burr picker takes homes tomorrow due to closure. MD notified, and states that patient will not be dishcarged today and will be able to get doses of methadone while here. Patient notified. Patient requests letter from case management upon discharge regarding hospitalization, methadone use at hospital and compliance so no issues arrise when discharged to be able to burr picker doses when discharged. SHAZIA COLLAZO
--- NOTE | 2024-08-08 09:47 | INITIAL_ITS ---
Date of service: 08/08/24 Time of Service: 09:47 Care Management Initial Assmt Initial Assessment Reason for Hospitalization: sepsis Functional Status/Living Situation Patient Presentation: Pura was sitting up in bed when CM met with her. She was pleasant in manner and agreeable to conversation. Pura was admitted with bilateral cellulitis, R>L. She has had a spinal abscess in the past so imaging of her cervical, thoracic and lumbar spine was ordered. All were negative for evidence of infection. Pura does have positive blood cultures however, and is growing Group A Strep (Pyogenes). She was treated with home IV antibiotics at the time of her spinal abscess so is familiar with the process should it be necessary again. Pura lives in a single family home in [place], [place] with her parents, and 2 children. She is not currently employed and does not receive any community services. She is independent at baseline with ADLs and self care. Town of Residence: [place], [place] Resides with: Parent (lives with parents, and children) Significant Other/Family: Local Employment Status: Unemployed Instrumental Activities of Daily Living (ADLs): Independent Medications Medication Management: No Issues/Barriers identified Advance Directives Advance Directives: Do you have an Advance Directive: N 02/27/13 11:19 AD On File at [facility]: N 02/27/13 11:19 Date Asked 07/24/24 07/24/24 11:17 AD Date Reviewed COLST On File at [facility] COLST Date Scanned Code Status Resuscitation Status Full Code Portal Pt does not currently have a portal and education provided: No Insurance Coverage/Financial Issues Insurance: Medicaid Care Team Visit Care Team Role Provider Type Tiffany Houser MD Primary Care Provider [facility] STAFF PHYSICIAN Wade Lara MD Emergency Provider [facility] STAFF PHYSICIAN Niko Graham MD Admit Provider [facility] STAFF PHYSICIAN Attending Provider Discharge Potential Discharge Needs: PCP F/U Appt Anticipated Barriers to Discharge: None Identified Patient/Family Education Needs: Review discharge instructions, discuss Ask Me Three Transportation: Private vehicle Plan: Anticipate Pura will be discharged home with no new services when medically cleared, unless usp IV antibiotics are recommended. She will follow up with her PCP and plan of care and transport with family. CM will follow ands continue to assess for discharge concerns. Social Determinants of Health Screening Social Determinants of Health last assessed: 08/08/24 Will the Patient Participate in the Screening?: Declined to provide Do you worry about having a steady place to live?: no Problems where you live: no known problems In the past 12 months, have you had to go without electric, gas, oil or water in your home?: no Have you or anyone in your house had to go without enough food to eat?: no Has lack of transportation kept you from medical appointments or from doing things needed for daily living?: no Has anyone in your life made you feel unsafe or unsupported?: no How hard is it for you to pay for the very basics like food, housing, medical care, and heating? Would you say it is:: Not hard at all Do you want help finding or keeping work or a job?: I do not need or want help If for any reason you need help with day-to-day activities such as bathing, preparing meals, shopping, managing finances, etc., do you get the help you need?: I don?t need any help How often do you feel lonely or isolated from those around you?: Never Do you speak a language other than Sinhala at home?: No Does the patient want assistance with any of the above?: No PFSH All Active Problems Sepsis due to cellulitis (Acute) IVDU (intravenous drug user) (Acute) Cellulitis (Acute) Back pain (Acute) Sepsis (Acute) Influenza A (Acute) Polysubstance abuse (Acute) Acute hypokalemia (Acute) Dehydration (Acute) Cellulitis of left arm (Acute) Previous delivery, delivered (Acute) Medical History Drug abuse Heroin abuse Asthma Migraine Surgical History section (04/01/10) failed induction for post dates. No dilation. [place] cord insertion noted on path report. No distress. Male named Alli 7lb 14oz. Family History Father Essential hypertension Diabetes D[facility] [place]'s chorea Social History Smoking/Tobacco Use Status: Current every day Tobacco Type: cigarettes Years smoked: 15 Smoking risk assessment performed?: Yes Alcohol Intake: never Drug use: Daily Substance use type: heroin, painkillers and IV drugs Details: Hx of drug abuse, currently been w/ [facility] x3mos ago 08/07/2024 Housing: house Do you feel safe at home: Yes Do you feel safe in your relationship?: Yes
--- NOTE | 2024-08-08 10:50 | PGE_ITS ---
Date of Service Date of service: 08/08/24 Time of Service: 10:50 Assessment and Plan Assessment and plan (1) Sepsis: Status: Acute Assessment and plan: -patient meets criteria for sepsis on admission with WBC 12.2, HR >100, and source of infection being bilateral flank (R>L) cellulitis -there was initial concern for spinal abscess as patient has history of, and was initially complaing of back pain, but MRI done in ED was without acute findings -patient was given CTX, flagyl and vanc in the ED -will continue IV vanc -became febrile shrtly after admission on 08/07 around 16:16 to 101.5oF, improved with tylenol -prelim blood cultures growing GPCs in chains, will f/u final results and adjust abx regimen as indicated (2) Cellulitis: Status: Acute Assessment and plan: -source of infection as noted above (3) IVDU (intravenous drug user): Status: Acute Assessment and plan: -continue home methadone which has been confirmed by [facility] clinic Subjective Subjective Interval history since last seen: Patient states that she is feeling much better today. She understands that her blood cultures are positive and she will remain on IV antibiotics until final results are available. She also appreciates restarting her home methadone and otherwise has no other complaints or concerns at this time. Exam Narrative Exam Narrative: Well-appearing morbidly obese female laying in bed in mild distress due to fever, AOx4, heart tachycardic with rates in the low 100's, regular rhythm, lungs CTAB, abdomen soft, non-tender, non-distended, area of excoriated skin with surrounding erythema on bilateral flanks Objective Last Vital Signs Temp 96.8 F L 08/08/24 07:39 Pulse 69 08/08/24 07:39 Resp 16 08/08/24 07:39 BP 99/68 L 08/08/24 07:39 Pulse Ox 100 08/08/24 07:39 Laboratory Results - last 24 hr 08/07/24 08/07/24 08/07/24 10:37 12:30 13:00 WBC RBC Hgb Hct MCV MCH MCHC RDW Plt Count MPV VBG pH 7.43 H VBG pCO2 37 L VBG pO2 42 VBG HCO3 25 VBG Total CO2 22 L VBG O2 Saturation 79 VBG Base Excess 0 VBG Lactate 1.0 Sodium 136 Potassium 3.4 L Chloride 101 Carbon Dioxide 25.7 Anion Gap 9.3 BUN 14 Creatinine 1.1 H Est GFR (CKD-EPI 2020) 67.20 Glucose 102 Calcium 8.4 L Magnesium Troponin I 4 < 4 Cancelled Urine Color Urine Clarity Urine pH Ur Specific [place] Urine Protein Urine Ketones Urine Blood Urine Nitrite Urine Bilirubin Urine Urobilinogen Ur Leukocyte Esterase Urine RBC Urine WBC Ur Epithelial Cells Urine Crystals Urine Bacteria Urine Casts Urine Mucus Urine Other Ur Culture Indicated? Urine Glucose MRSA (TEM-PCR) 08/07/24 08/07/24 08/08/24 14:33 14:51 06:45 WBC 5.60 RBC 4.10 Hgb 11.2 D Hct 34.1 L MCV 83 MCH 27.3 MCHC 32.8 RDW 14.5 Plt Count 108 L MPV 9.5 VBG pH VBG pCO2 VBG pO2 VBG HCO3 VBG Total CO2 VBG O2 Saturation VBG Base Excess VBG Lactate Sodium 138 Potassium 3.2 L Chloride 106 Carbon Dioxide 27.7 Anion Gap 4.3 BUN 16 Creatinine 1.0 Est GFR (CKD-EPI 2020) 75.34 Glucose 115 H Calcium 8.4 L Magnesium 2.0 Troponin I Urine Color Yellow Urine Clarity Clear Urine pH 6.0 Ur Specific [place] 1.025 Urine Protein 30 H Urine Ketones Negative Urine Blood Moderate H Urine Nitrite Negative Urine Bilirubin Negative Urine Urobilinogen 1.0 H Ur Leukocyte Esterase Negative Urine RBC 10-20 H Urine WBC 0-2 Ur Epithelial Cells Few Urine Crystals Negative Urine Bacteria Few Urine Casts Negative Urine Mucus Trace Urine Other Negative Ur Culture Indicated? No Urine Glucose Negative MRSA (TEM-PCR) Positive A Time Spent with Patient Time Spent with Patient: >50 minutes Time was spent: preparing to see the patient(eg.review tests), obtaining and/or reviewing separately otained hiistory, ordering medications,tests, procedures, referring, communicating with other health direct care supervisor, indepentently interpreting results, counseling the patient and care coordination
[2024-08-08] MEDS: Potassium Chloride 20 MEQ TABCR 40 MEQ PO (11:20)
[2024-08-08 11:27] VITALS: BP 107/63; PULSE 68; RESP 15; TEMP 36.3; O2SAT 97
[2024-08-08 15:21] VITALS: BP 108/57; PULSE 71; RESP 16; TEMP 35.7; O2SAT 97
[2024-08-08 19:34] VITALS: BP 123/73; PULSE 72; RESP 17; TEMP 36.4; O2SAT 97
[2024-08-08 22:58] VITALS: BP 104/58; PULSE 76; RESP 19; TEMP 36.3; O2SAT 97
[2024-08-09] MEDS: Acetaminophen 325 MG TAB PO ×3 (00:05→19:43)
[2024-08-09] MEDS: VANCOMYCIN/WATER (PEG) 1.25 GM/250 ML BAG IV (00:06)
[2024-08-09 03:00] VITALS: BP 119/74; PULSE 65; RESP 18; TEMP 35.1; O2SAT 98
[2024-08-09 07:26] LABS: HCT 35.2 % (36.0-46.0); MCH 26.7 pg (27.0-33.0); MCHC 31.3 % (32.0-36.0); MCV 85 fL (80-95); MPV 10.7 fL (8.0-11.0); Platelet Count 121 10^3/uL (130-400); RBC 4.12 10^6/uL (3.93-5.22); RDW 14.5 % (11.7-14.6); RDW-SD 44.9 fL; WBC 3.83 10^3/uL (4.4-10.8)
[2024-08-09 07:41] VITALS: BP 126/70; PULSE 68; RESP 18; TEMP 36.6; O2SAT 97
[2024-08-09 07:46] LABS: Anion Gap 5.9 mmol/L (3-11); BUN 14 mg/dL (7-18); CO2 28.1 mmol/L (21.0-32.0); CREATININE 0.8 mg/dL (0.55-1.02); Calcium 8.6 mg/dL (8.5-10.1); Chloride 108 mmol/L (98-107); Estimated GFR 98.48 (mL/min/1.73m2); Glucose 80 mg/dL (74-106); Potassium 3.7 mmol/L (3.5-5.1); Sodium 142 mmol/L (136-145)
[2024-08-09 07:56] LABS: Vancomycin, Random 15.3 ug/mL
[2024-08-09] MEDS: Normal Saline Flush 10 ML SYR IVP (07:58)
[2024-08-09] MEDS: Methadone Liquid 10 MG/ML 170 MG PO (07:58)
[2024-08-09] MEDS: Enoxaparin 40 MG/0.4 ML SYR SC (07:58)
--- NOTE | 2024-08-09 09:29 | PGE_ITS ---
Date of Service Date of service: 08/09/24 Time of Service: 09:29 Assessment and Plan Assessment and plan (1) Sepsis: Status: Acute Assessment and plan: -patient meets criteria for sepsis on admission with WBC 12.2, HR >100, and source of infection being bilateral flank (R>L) cellulitis -there was initial concern for spinal abscess as patient has history of, and was initially complaing of back pain, but MRI done in ED was without acute findings -patient was given CTX, flagyl and vanc in the ED -will continue IV vanc -became febrile shrtly after admission on 08/07 around 16:16 to 101.5oF, improved with tylenol -first set of blood cultures growing Group A strep; transitioning to oral amox 875 BID for total of 14 days of therapy (2) Cellulitis: Status: Acute Assessment and plan: -source of infection as noted above (3) IVDU (intravenous drug user): Status: Acute Assessment and plan: -continue home methadone which has been confirmed by [facility] clinic Subjective Subjective Interval history since last seen: Patient states that she is feeling much better today. She understands that her blood cultures are positive and she will remain on IV antibiotics until repeat cultures are finalized as negative. She has no complaints or concerns at this time Exam Narrative Exam Narrative: Well-appearing morbidly obese female laying in bed in mild distress due to fever, AOx4, heart tachycardic with rates in the low 100's, regular rhythm, lungs CTAB, abdomen soft, non-tender, non-distended, area of excoriated skin with surrounding erythema on bilateral flanks Objective Last Vital Signs Temp 97.9 F 08/09/24 07:41 Pulse 68 08/09/24 07:41 Resp 18 08/09/24 07:41 BP 126/70 08/09/24 07:41 Pulse Ox 97 08/09/24 07:41 Laboratory Results - last 24 hr 08/09/24 06:40 WBC 3.83 L RBC 4.12 Hgb 11.0 L Hct 35.2 L MCV 85 MCH 26.7 L MCHC 31.3 L RDW 14.5 Plt Count 121 L MPV 10.7 Sodium 142 Potassium 3.7 Chloride 108 H Carbon Dioxide 28.1 Anion Gap 5.9 BUN 14 Creatinine 0.8 Est GFR (CKD-EPI 2020) 98.48 Glucose 80 Calcium 8.6 Random Vancomycin 15.3 Time Spent with Patient Time Spent with Patient: >50 minutes Time was spent: preparing to see the patient(eg.review tests), obtaining and/or reviewing separately otained hiistory, ordering medications,tests, procedures, referring, communicating with other health critical care specialist, indepentently interpreting results, counseling the patient and care coordination
[2024-08-09 11:28] VITALS: BP 135/74; PULSE 69; RESP 18; TEMP 36.4; O2SAT 95
[2024-08-09 14:32] VITALS: BP 106/67; PULSE 62; RESP 18; TEMP 36.2; O2SAT 97
[2024-08-09] MEDS: Amoxicillin 500 MG CAP PO (19:43)
[2024-08-09 19:47] VITALS: BP 124/79; PULSE 83; RESP 15; TEMP 37.1; O2SAT 97
[2024-08-09 23:33] VITALS: BP 125/73; PULSE 72; RESP 15; TEMP 36.3; O2SAT 97
[2024-08-10 03:13] VITALS: BP 127/80; PULSE 65; RESP 15; TEMP 36.8; O2SAT 97
[2024-08-10 07:33] VITALS: BP 105/67; PULSE 54; RESP 16; TEMP 36.7; O2SAT 97
[2024-08-10] MEDS: Amoxicillin 875 MG TAB PO (08:19)
[2024-08-10] MEDS: Enoxaparin 40 MG/0.4 ML SYR SC (08:19)
[2024-08-10] MEDS: Methadone Liquid 10 MG/ML 170 MG PO (08:20)
--- NOTE | 2024-08-10 10:10 | PDOC.CMPRO ---
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 She will follow up with her PCP and plan of care and transport with family. CM will follow ands continue to assess for discharge concerns. Social Determinants of Health Screening Social Determinants of Health last assessed: 08/10/24 Will the Patient Participate in the Screening?: Declined to provide Do you worry about having a steady place to live?: no Problems where you live: no known problems In the past 12 months, have you had to go without electric, gas, oil or water in your home?: no Have you or anyone in your house had to go without enough food to eat?: no Has lack of transportation kept you from medical appointments or from doing things needed for daily living?: no Has anyone in your life made you feel unsafe or unsupported?: no How hard is it for you to pay for the very basics like food, housing, medical care, and heating? Would you say it is:: Not hard at all Do you want help finding or keeping work or a job?: I do not need or want help If for any reason you need help with day-to-day activities such as bathing, preparing meals, shopping, managing finances, etc., do you get the help you need?: I don?t need any help How often do you feel lonely or isolated from those around you?: Never Do you speak a language other than Slovak at home?: No Does the patient want assistance with any of the above?: No
[2024-08-10] MEDS: Acetaminophen 325 MG TAB PO (10:40)
[2024-08-10 11:24] VITALS: BP 111/61; PULSE 63; RESP 15; TEMP 36.9; O2SAT 95
--- NOTE | 2024-08-10 12:45 | W.PM.DS.N ---
Date of service: 08/10/24 Time of Service: 12:45 DS: Diagnosis Discharge Diagnosis (1) Sepsis: Status: Acute (2) Cellulitis: Status: Acute (3) IVDU (intravenous drug user): Status: Acute Discharge Plan Disposition Patient Disposition: Home Condition: Good Discharge Details Reason For Visit: Sepsis cellulitis Admit Date/Time: 08/07/24 14:40 Admit Provider: Niko Graham Attending Provider: Niko Graham Primary Care Provider: Tiffany Houser V Hospital Course Hospital Course: Per H+P: 33yo female with history of MRSA bacteremia and spinal abscess ~2yrs ago, frequent episodes of cellulitis, and ongoing IV drug use who presents to the ED with complaints of back pain, N/V, malaise and chills. Patient states that her back pain began yesterday and was described as in the mid-back and severe, similar to when she had her pervious spinal abscess. She also reported chills, malaise, nausea, and non-bilious vomiting prior to arrival. She denies any headache, lightheadedness, dizziness, cough, fever, or chest pain. In the ED the patient was noted to be tachycardic with HR in the 100's with normal bllod pressure and RR. Her temp peaked at 100.2oF for which she was given IV tylenol. Physical exam was normal except for signs of severe cellulitis of bilateral flank areas (R>L). Her CBC showed a WBC of 12.2, and her CRP was 13.9 but the remained of her labs were WNL. Given IV drug use and history of spinal abscess blood cultures were drawn, she was given IV vanc, CTX and flagyl, and MRI of the lumbar spine was ordered but did not show any acute findings. At which time emergency room physician paged hospitalist for admission of a patient with sepsis secondary to cellulitis with suspicion for bacteremia requiring IV vanc. Patient here with cellulitis, sepsis by criteria. Started on vanco IV. Initial blood cultures on 08/07 grew GAS in both bottles. Repeats done on 08/08 were negative after 48 hours. There was concern for spinal involvement considering back pain but MRI of C/T/L spine was all negative. There was a concern for a finding in the skull (mucinous cyst vs pitutiary tumor) and I did ask patient to follow as outpatient to have this evaluated. She is agreeable to this. Patient was transitioned over to PO amoxil. Plan to dishcarge today, will need full 14 day course of abx, will give Augmentin 875mg BID. To follow with PCP to discuss further imaging, need for further abx. If patient has any symptom of continued infection, she will need to return to the ER for further eval. Patient is also on methadone chronically and will need to continue current dosing with her clinic. Last dose documentation will be given to her by CM. Home Meds and New Rx's Prescriptions: New amoxicillin-pot clavulanate 875-125 mg tablet 1 tab PO Q12H 10 Days Qty: 20 0RF Continued Mirena 1 EACH intrauterine device 1 insert intrauterine DIRECTED Patient Comments: pt states she has had for a year and half 04/20/16 acetaminophen [Mapap Extra Strength] 500 MG tablet 1,000 mg PO PRN PRN ibuprofen [Ibuprofen IB] 200 MG tablet 400 mg PO PRN PRN gabapentin 300 mg capsule 300 mg PO TID methadone 10 mg/mL Concentrate 170 mg PO DAILY Patient Comments: recent dose increase furosemide [Lasix] 20 mg tablet 20 mg PO DAILY Qty: 5 0RF nicotine [Nicoderm CQ] 21 mg/24 hr Patch 24 Hour 1 patch transdermal DAILY nicotine (polacrilex) 4 mg gum 4 mg PO DIRECTED Patient Comments: CHEW 1 GUM BY MOUTH DIRECTED atomoxetine 40 mg capsule 40 mg PO DAILY Patient Comments: TAKE 1 CAPSULE BY MOUTH EVERY MORNING mupirocin 2 % ointment 1 applic TOPICAL TID Patient Comments: APPLY TOPICALLY TO THE AFFECTED AREA THREE TIMES DAILY FOR 10 DAYS hydroxyzine HCl 25 mg tablet 25 mg PO QID PRN Patient Comments: TAKE 1 TABLET BY MOUTH FOUR TIMES DAILY NEEDED FOR ANXIETY Discontinued doxycycline hyclate 100 mg capsule 100 mg PO DAILY Patient Comments: TAKE 1 CAPSULE BY MOUTH EVERY 12 HOURS FOR 10 DAYS Discharge Instructions Referrals: Tiffany Houser MD [Primary Care Provider] - Activity:: Activity as Tolerated Equipment/Supplies:: No Equipment Needed Diet:: As Tolerated Discharge Orders Discharge Orders: Discharge Order (Routine); Ordered 08/10/24 Ordered By: Prieto Mota DS: Summary Time Spent with Patient providing and/or coordinating discharge services: Greater than 30 minutes Status at Discharge Functional status at discharge: independent ambulation Overall status at discharge: patient is back to baseline Mental Status: mental status grossly normal Speech and Movement: speech and movement normal Mood: congruent mood Affect: normal affect Quality:SDOH Health Related Social Needs: No Data to Display Exam Psych Mental Status: mental status grossly normal Speech and Movement: speech and movement normal Mood: congruent mood Affect: normal affect DS: Data Vitals/I&O Vitals and I&O: Vital Signs Temperature 36.9 C 08/10/24 11:24 Temperature Source Temporal Artery Scan 08/10/24 11:24 Pulse 63 08/10/24 11:24 Pulse Rhythm Regular 08/07/24 16:16 Pulse 102 H 08/07/24 15:50 Respiratory Rate 15 08/10/24 11:24 Respiratory Effort Normal 08/07/24 16:16 Respiratory Depth Normal 08/07/24 16:16 Respiratory Pattern Normal 08/07/24 16:16 Blood Pressure 111/61 08/10/24 11:24 Blood Pressure Mean 120 08/07/24 15:45 Blood Pressure Position Sitting 08/07/24 06:09 Pulse Oximetry 95 08/10/24 11:24 Oxygen Delivery Method Room Air 08/10/24 11:24 Oxygen Flow Rate 0 08/10/24 11:24 Pain Level 5 08/10/24 10:40 Intake & Output 08/09/24 08/10/24 08/10/24 23:59 11:59 23:59 Output Total 250 / 650 550 / 550 Balance -250 / -150 -550 / -550 Output: Urine 250 / 650 550 / 550 Other: Urine Color Straw Dark Shirley Urine Appearance Sediment Clear Urine Odor Normal Normal Data Completed and Pending Labs on day of discharge: Preliminary micro results at discharge 08/08/24 07:55 Blood Culture - Preliminary Blood NO GROWTH 48 HOURS 08/08/24 07:40 Blood Culture - Preliminary Blood NO GROWTH 48 HOURS PFSH All Active Problems Sepsis due to cellulitis (Acute) IVDU (intravenous drug user) (Acute) Cellulitis (Acute) Back pain (Acute) Sepsis (Acute) Influenza A (Acute) Polysubstance abuse (Acute) Acute hypokalemia (Acute) Dehydration (Acute) Cellulitis of left arm (Acute) Previous delivery, delivered (Acute) Medical History Drug abuse Heroin abuse Asthma Migraine Surgical History section (04/01/10) failed induction for post dates. No dilation. Velamentouse cord insertion noted on path report. No distress. Male infant named Alli 7lb 14oz. Family History Father Essential hypertension Diabetes [id number] [place]'s chorea Social History Smoking/Tobacco Use Status: Current every day Tobacco Type: cigarettes Years smoked: 15 Smoking risk assessment performed?: Yes Alcohol Intake: never Drug use: Daily Substance use type: heroin, painkillers and IV drugs Details: Hx of drug abuse, currently been w/ [facility] x3mos ago 08/07/2024 Housing: house Do you feel safe at home: Yes Do you feel safe in your relationship?: Yes Time Spent with Patient Time Spent with Patient: 45-69 minutes Time was spent: preparing to see the patient(eg.review tests), obtaining and/or reviewing separately otained hiistory and referring, communicating with other health [facility] day care center
--- NOTE | 2024-08-10 16:05 | CMDISCH_ITS ---
Date of service: 08/10/24 Time of Service: 16:05 LACE Index Scoring Tool Questions: Length of Stay (in days): 3 Was the patient admitted via the E.D.?: Yes E.D. Visits: 1 Answers: Total Score: 7 Risk of Readmission: Low Risk Care Management Discharge Plan Reason for Hospitalization: Sepsis cellulitis Discharge Plan: Pura returned home today with no new services. Her mother drove her home via private vehicle. CM provided a last dose letter for DARIUS. She will follow up with her PCP and discharge plan of care. She is happy to be going home. Patient/Family Education Needs: Review discharge instructions and limitations, d iscussion of self care needs including ask me three. SDOH Health Related Social Needs: No Data to Display
== END 2024-08-10 14:17 | disposition home or self-care (01) | DRG 872 ==
LOC: ER 08:16 → MS 15:55
PROVIDERS: Student in an Organized Health Care Education/Training Program; Admitting Provider Family Medicine; Emergency Provider Emergency Medicine; PCP Family Medicine; Responsible Provider Hospitalist; Visit Provider Family Medicine
DX: A40.0 Sepsis due to streptococcus, group A (principal); L03.311 Cellulitis of abdominal wall; F11.20 Opioid dependence, uncomplicated; Z68.41 Body mass index [BMI] 40.0-44.9, adult; M54.6 Pain in thoracic spine; F19.10 Other psychoactive substance abuse, uncomplicated; E87.6 Hypokalemia; E86.0 Dehydration; J45.909 Unspecified asthma, uncomplicated; G43.909 Migraine, unspecified, not intractable, without status migrainosus; F17.210 Nicotine dependence, cigarettes, uncomplicated; R93.0 Abnormal findings on diagnostic imaging of skull and head, not elsewhere classified; E66.01 Morbid (severe) obesity due to excess calories
CPT/HCPCS: 00123; 36415; 72158; 80048; 80053; 82805; 84145; 85027; 85652; 87040; 87077; 87637; 87641; 96361; 96365; 96366; 96367; 96368; 96375; 99285; J1650; 71045; 72156; 72157; 80202; 81003; 81015; 83605; 83735; 84484; 84703; 85025; 86140; 99223; 99233; 99239; J0131; J0696; J1836; J2250; J3370; J3372

== ENCOUNTER 2024-09-22 00:55 | Outpatient (CLI) | payer MEDICAID, SELFPAY ==
--- NOTE | 2024-09-22 14:40 | DI.US_ITS ---
APPROVED REPORT EXAM: Comprehensive 2D, Doppler, and color-flow Echocardiogram Patient Location: Out-Patient Tourist Agent: Tacho Ferrer RDCS (AE) Indications: Chronic IVDU with cellulitis, r/o valvular vegetation Other Information Study Quality: Fair Conclusion Normal left ventricular wall thickness and chamber size. Ejection fraction is 65%. Wall motion is n ormal Normal right ventricular size and function Both atria are normal in size There is no structural or hemodynamically significant valvular disease No valvular vegetations are seen Wall motion Left Ventricle The left ventricle is normal size. The left ventricular systolic function is normal. The left ventric ular ejection fraction is within the normal range. There is normal left ventricular wall thickness. T here is normal LV segmental wall motion. There is no ventricular septal defect visualized. LVEF is 65 %. Right Ventricle The right ventricle is normal size. The right ventricular systolic function is normal. Atria The left atrium size is normal. The right atrium size is normal. The interatrial septum is intact wit h no evidence for an atrial septal defect. Aortic Valve The aortic valve is normal in structure. Aortic valve is trileaflet. There is no aortic valvular sten osis. No aortic regurgitation is present. Mitral Valve The mitral valve is normal in structure. No evidence of mitral valve stenosis. There is no mitral rosalina ve regurgitation noted. Tricuspid Valve The tricuspid valve is normal in structure. There is no tricuspid valve stenosis. There is no tricusp id valve regurgitation noted. Pulmonic Valve The pulmonary valve is normal in structure. There is no pulmonic valvular stenosis. There is no pulmo conor valvular regurgitation. Great Vessels The aortic root is normal in size. The ascending aorta is normal in size. Aortic arch is normal in ca liber. IVC is normal in size and collapses >50% with inspiration. Pericardium There is no pericardial effusion. 2D Dimensions IVSD d PLAX 0.99 cm F: 0.6-1.0 Ao Root d 3.26 cm F: 2.7 - 3.3 LVPW d PLAX 1.04 cm F: 0.6 - 1.0 LVID d PLAX 5.15 cm F: 3.8 - 5.2 LVDs 3.33 cm F: 2.2 - 3.5 LV EF Teichholz 64.5 % FS 35.47 % LV EDV (Teich) 126.9 mL LV ESV (Teich) 45.0 mL Stroke Vol Index (Teich) 35.77 M-Mode TAPSE 1.86 cm (M/F) >1.7 Auto EF LV EDV A4C 125.7 mL LV EDV A2C 127.9 mL LV EDV BP 125.7 mL LV ESV A4C 43.5 mL LV ESV A2C 46.0 mL LV ESV BP 44.4 mL LVEF(%) A4C 65.4 % LVEF(%) A2C 64.1 % LVEF(%) BP 64.7 % LV SV A4C 82.2 ml LV SV A2C 82.0 ml LV SV BP 81.3 ml LV CO A4C 4.3 L/min LV CO A2C 4.4 L/min LV CO BP 4.4 L/min HR A4C 52.33 BPM HR A2C 54.12 BPM LV EDV Index (BP) LA Volume LA Length A4C 3.8 cm LA Length A2C 4.1 cm LA Area A4C s 10.34 cm2 LA Area A2C s 11.04 cm2 LA Vol A4C A-L 23.69 mL LA Vol A2C A-L 25.51 mL LA Vol Biplane A-L 25.3 mL LA Vol/BSA A4C A-L LA Vol/BSA A2C A-L LA Vol/BSA BP A-L 11.0 mL/m2 LA Vol A4C MOD 22.6 mL LA Vol A2C MOD 24.6 mL LA Vol BP MOD 24.0 mL RA Volume RA Area A4C 7.2 cm2 RA ESV A4C (A-L) 13.0mL RA Vol/BSA A4C A-L RA Length A4C 3.4 cm RA ESV A4C (MOD) 13.1mL LV Diastology MV E' medial 0.085 (>0.07 m/s) MV E Vmax 0.58 (0.4-1.3 m/s) MV E/E' MED 6.74 (<14) MV A Vmax 0.55 (0.4-1.3 m/s) MV E' lateral 0.107 (>0.1 m/s) E/A Ratio 1.1 MV E/E' LAT 5.40 (<14) MV E' Average 0.096 m/s MV E/E'(average) 5.99 Aortic Valve AoV Vmax 0.87 m/s LVOT Vmax 0.70 m/s AoV Peak Grad 3.1 mmHg LVOT Peak Grad 2.0 mmHg AoV Area (Vmax) 3.08 cm2 LVOT VTI 0.178 m AoV VTI 0.193 m LVOT Mean Grad 1.0 mmHg AoV Mean Lm. 0.64 m/s LVOT SV 68.38 mL AoV Mean Grad 1.9 mmHg LVOT Diam s 2.20 cm AoV Area (VTI) 3.55 cm2 AV Regurg Peak Gr. 3.06 mmHg Velocity Ratio 0.80 Mitral Valve MV DT 172 (160-240 msec) MV Vmax TIPS 0.75 m/s MV Mean Grad 0.8 (<2mmHg) MV VTI 0.257 m Pulmonary Valve PV Vmax 0.93 (0.5-1.5 m/s) RVOT Vmax 0.71 m/s PV Peak Grad 3.5 mmHg RVOT Peak Gr. 2.0 mmHg PV Mean Lm 0.68 m/s RVOT VTI 0.143 m PV Mean Grad 2.0 mmHg RVOT Mean Gr. 1.0 mmHg Tricuspid Valve TV S' 0.10 m/s
== END 2024-09-22 01:15 ==
LOC: DI 00:55
PROVIDERS: PCP Family Medicine; Visit Provider Family Medicine
DX: F19.10 Other psychoactive substance abuse, uncomplicated (principal)
CPT/HCPCS: 93306

== ENCOUNTER 2024-09-23 01:14 | Outpatient (CLI) | payer MEDICAID, SELFPAY ==
--- NOTE | 2024-09-23 | DI.MRI_ITS ---
Exam(s) MR BRAIN PITUITARY WO/W EXAM: MR BRAIN PITUITARY WO/W CLINICAL HISTORY: R90.89-other abnl findings on DI of [employer], enhancing mass seen on C-spine MRI TECHNIQUE: Multiplanar multisequence MRI of the brain and pituitary gland was performed. CONTRAST MATERIAL: IV Contrast: 20 mL of Dotarem contrast administered. Priors: MR MR CERVICAL SPINE WO/W from 08/07/2024 Findings: The examination is limited due to patient motion artifact. VENTRICLES AND EXTRA AXIAL SPACES: Normal in size and morphology for the patient's age. HEMORRHAGE: None. CEREBRAL PARENCHYMA: No focus of restricted diffusion to suggest acute infarct. No space-occupying le yoni identified. MIDLINE SHIFT: None. BRAINSTEM/CEREBELLUM: Normal. CALVARIUM: Normal. ENHANCEMENT: No suspicious enhancement identified. VISUALIZED PARANASAL SINUSES/MASTOIDS: There is mild mucosal thickening in the visualized paranasal s inuses. No air-fluid levels are present. OTHER FINDINGS: None. PITUITARY: Pituitary stalk is midline. The gland demonstrates normal signal intensity with homogeneous enhanceme nt. No evidence of macroadenoma or microadenoma. The area mention on the prior MRI of the cervical s pine from 08/07/2024 appears to have represented fluid in the sphenoid sinus. There is homogeneous en hancement of the pituitary gland following contrast administration. The optic chiasm is unremarkable. The cavernous portions of both carotid arteries are unremarkable. Impression: 1. Unremarkable pituitary gland. No evidence of a 2 Justine mass. 2. The area of concern appear to represent fluid in the adjacent sphenoid sinus. 3. Unremarkable MRI of the brain. DATA REPOSITORY:
[2024-09-23] MEDS: Normal Saline Flush 10 ML SYR IVP (12:11)
[2024-09-23] MEDS: Gadoterate meglumine 20 ML SYRINGE IVP (12:11)
== END 2024-09-23 01:34 ==
LOC: DI 01:14
PROVIDERS: PCP Family Medicine; Visit Provider Family Medicine
DX: R90.89 Other abnormal findings on diagnostic imaging of central nervous system (principal)
CPT/HCPCS: 70553

== ENCOUNTER 2024-12-13 12:08 | Emergency (ER) | payer MEDICAID, SELFPAY ==
[2024-12-13] VITALS (13 sets, daily range): BP systolic 114–146; BP diastolic 58–83; PULSE 87–98; RESP 12–20; TEMP 36.8–37; O2SAT 98–100
[2024-12-13 13:26] LABS: Abs Immature Grans 0.04 10^3/uL (0.0-0.06); Absolute Basophil Count 0.02 10^3/uL (0.0-0.2); Absolute Eosinophil Count 0.01 10^3/uL (0.0-0.7); Absolute Lymphocyte Count 0.96 10^3/uL (1.2-3.4); Absolute Monocyte Count 0.23 10^3/uL (0.1-0.8); Basophils % 0.2 %; Eosinophils % 0.1 %; HCT 41.1 % (36.0-46.0); HGB 13.3 g/dL (11.2-15.7); Immature Grans % 0.4 %; Lymphocytes % 8.7 %; MCH 26.6 pg (27.0-33.0); MCHC 32.4 % (32.0-36.0); MCV 82 fL (80-95); MPV 10.6 fL (8.0-11.0); Monocytes % 2.1 %; Neutrophils % 88.5 %; Platelet Count 144 10^3/uL (130-400); RDW 13.9 % (11.7-14.6); RDW-SD 41.1 fL; WBC 11.05 10^3/uL (4.4-10.8)
[2024-12-13 13:31] LABS: Absolute Neutrophil Count 9.78 10^3/uL (1.2-6.7)
[2024-12-13] MEDS: Ketorolac 15 MG/ML VIAL IVP (13:36)
[2024-12-13] MEDS: CLINDAMYCIN 600 MG/50 ML BAG 100 MG IVPB (13:37)
[2024-12-13 13:49] LABS: ALT 24 U/L (14-59); AST 16 U/L (15-37); Albumin 3.2 g/dL (3.4-5.0); Alkaline Phosphatase 67 U/L (46-116); Anion Gap 10.7 mmol/L (3-11); BUN 10 mg/dL (7-18); Bilirubin, Total 0.6 mg/dL (0.2-1.0); CO2 24.3 mmol/L (21.0-32.0); CREATININE 0.8 mg/dL (0.55-1.02); Calcium 8.9 mg/dL (8.5-10.1); Chloride 100 mmol/L (98-107); Estimated GFR 97.87 (mL/min/1.73m2); Glucose 103 mg/dL (74-106); Potassium 3.3 mmol/L (3.5-5.1); Sodium 135 mmol/L (136-145); Total Protein 7.7 g/dL (6.4-8.2)
[2024-12-13 13:58] LABS: Procalcitonin 5.02 ng/mL
--- NOTE | 2024-12-13 14:16 | W.ED.GENAD ---
Discharge Plan Disposition Patient Disposition: Home Condition: Good Discharge Details Clinical Impression: Cellulitis of leg, right, Cellulitis of right middle finger Primary Care Provider: Tiffany Houser V ED Provider: Royer Peterson Home Meds and New Rx's Prescriptions: New clindamycin HCl 150 mg capsule 450 mg PO Q6H 7 Days Qty: 84 0RF No Action Mirena 1 EACH intrauterine device 1 insert intrauterine DIRECTED Patient Comments: pt states she has had for a year and half 04/20/16 acetaminophen [Mapap Extra Strength] 500 MG tablet 1,000 mg PO PRN PRN ibuprofen [Ibuprofen IB] 200 MG tablet 400 mg PO PRN PRN gabapentin 300 mg capsule 300 mg PO TID methadone 10 mg/mL Concentrate 170 mg PO DAILY Patient Comments: recent dose increase furosemide [Lasix] 20 mg tablet 20 mg PO DAILY Qty: 5 0RF nicotine [Nicoderm CQ] 21 mg/24 hr Patch 24 Hour 1 patch transdermal DAILY nicotine (polacrilex) 4 mg gum 4 mg PO DIRECTED Patient Comments: CHEW 1 GUM BY MOUTH DIRECTED atomoxetine 40 mg capsule 40 mg PO DAILY Patient Comments: TAKE 1 CAPSULE BY MOUTH EVERY MORNING mupirocin 2 % ointment 1 applic TOPICAL TID Patient Comments: APPLY TOPICALLY TO THE AFFECTED AREA THREE TIMES DAILY FOR 10 DAYS hydroxyzine HCl 25 mg tablet 25 mg PO QID PRN Patient Comments: TAKE 1 TABLET BY MOUTH FOUR TIMES DAILY NEEDED FOR ANXIETY Discharge Instructions Instructions: Cellulitis (Skin Infection), Adult ED Additional Instructions: At this time you have evidence of cellulitis both on your finger and on your leg. There is concern that this could worsen or that it is spread in your blood. While there are no clear evidences of this at this time, you are at high risk for. Blood cultures have been sent and you will be contacted if they are positive. In addition to this we do have mild concern that there could be a small DVT present. We have placed an order for an outpatient ultrasound to be performed tomorrow. You will be contacted for an appointment time. However we do recommend that at 8 AM you contact the phone number given to you on the top of the sheet. We have given you a single dose of a blood thinner to keep your blood thin until that point in case there may be a clot. At the meantime, please take the antibiotic as prescribed. Please take this with a probiotic to help reduce the risk of potential diarrhea. If you notice any worsening of your symptoms, or any new symptoms such as vomiting, diarrhea, fever, chills, shortness of breath, chest pain, numbness, weakness, or fainting , please return immediately to the emergency department for reevaluation. Please follow up with your primary care provider as soon as possible for reassessment and reevaluation. As always, it was a pleasure participating in your medical care today. Referrals: Tiffany Houser MD [Primary Care Provider, Medicine] Discharge Orders Other Ambulatory Orders: US lower extremity venous RT (Routine) Timeframe: 1 Day Facility: [facility] - Location: DIAGNOSTIC IMAGING Ordered By: Royer Peterson [facility] General Date/Time Provider Initiated Documentation: 12/13/24 12:10. HPI Narrative: 34-year-old female with a past medical history of IV drug use, previous cellulitis, spinal abscess, previous bacteremia, who presents today for evaluation of redness on her right leg, and swelling lesion on her middle finger. She states that the symptoms have only been present for the last 24 hours. She denies vomiting or diarrhea. She admits to chills but denies fever. She denies chest pain shortness of breath. She denies pleuritic chest pain. She denies history of blood clots or PE. She denies any trauma to those areas. No other complaints at this time. No recent long trips surgeries or procedures. No other modifying factors. Areas are mildly achy, worse with palpation. She denies any systemic joint achiness. She states that it has been 3 weeks since she has used any IV or illicit drugs. Or any IV drugs in general. Related Data Home Medications ?Medication ?Instructions ?Recorded ?Confirmed levonorgestrel 21 mcg/24 hr (up to 1 insert intrauterine DIRECTED 11/18/14 12/13/24 8 years) 52 mg intrauterine device (Mirena) acetaminophen 500 mg tablet (Mapap 1,000 mg PO PRN PRN 09/13/15 12/13/24 Extra Strength) ibuprofen 200 mg tablet (Ibuprofen 400 mg PO PRN PRN 01/17/16 12/13/24 IB) gabapentin 300 mg capsule 300 mg PO TID 04/18/21 12/13/24 methadone 10 mg/mL oral concentrate 170 mg PO DAILY 04/18/21 12/13/24 Held on 12/13/24. Instructions: Pt Stopped/Never Started nicotine (polacrilex) 4 mg gum 4 mg PO DIRECTED 01/03/23 12/13/24 nicotine 21 mg/24 hr daily 1 patch transdermal DAILY 01/03/23 12/13/24 transdermal patch (Nicoderm CQ) Held on 12/13/24. Instructions: Pt Stopped/Never Started furosemide 20 mg tablet (Lasix) 20 mg PO DAILY #5 tabs 01/13/24 12/13/24 Held on 12/13/24. Instructions: Pt Stopped/Never Started atomoxetine 40 mg capsule 40 mg PO DAILY 08/07/24 12/13/24 Held on 12/13/24. Instructions: Pt Stopped/Never Started hydroxyzine HCl 25 mg tablet 25 mg PO QID PRN 08/07/24 12/13/24 Held on 12/13/24. Instructions: Pt Stopped/Never Started mupirocin 2 % topical ointment 1 applic topical TID 08/07/24 12/13/24 Held on 12/13/24. Instructions: Pt Stopped/Never Started clindamycin HCl 150 mg capsule 450 mg (3 x 150 mg) PO Q6H 7 days 12/13/24 #84 caps Previous Rx's ?Medication ?Instructions ?Recorded furosemide 20 mg tablet (Lasix) 20 mg PO DAILY #5 tabs 01/13/24 Held on 12/13/24. Instructions: Pt Stopped/Never Started clindamycin HCl 150 mg capsule 450 mg (3 x 150 mg) PO Q6H 7 days 12/13/24 #84 caps Allergies Allergy/AdvReac Type Severity Reaction Status Date / Time No Known Allergies Allergy Verified 08/07/24 15:19 General Stated Complaint: Cellulitis FRANCISCO: 3 Exam Narrative Exam Narrative: 1.Const: Well-nourished, Well-developed, appearing stated age 2.Eyes: PERRL, no conjunctival injection, and symmetrical lids. 3.ENT: Atraumatic external nose and ears. Moist MM. Neck: Symmetric, trachea midline, No thyromegaly. 4.CVS: +S1/S2, Peripheral pulses 2+ and equal in all extremities. Brisk capillary refill in all extremities. 5.RESP: Unlabored respiratory effort. Clear to auscultation bilaterally. No wheezes rales or rhonchi 6.GI: Soft, Nontender/Nondistended, No hepatosplenomegaly. No guarding or rebound. 7.MSK: Normocephalic/Atraumatic, Extremities w/o deformity or ttp No cyanosis or clubbing, Normal movement of all extremities 8.Skin: Patient's right index finger demonstrates swollen bulla with purulent fluid beneath the skin of the mid phalanx of the middle finger on the dorsal aspect. No significant surrounding erythema. No active drainage or discharge. Normal movement of the finger with flexion extension, no significant swelling of the finger otherwise, no sausage shaped digit. No pain with active or passive flexion or extension of the finger. Right lower extremity demonstrates notable erythema from the ankle all the way up to the mid marin circumferentially. Mild +1 pitting edema. No subcutaneous crepitus or evidence of large vesicles or bulla. No bull's-eye lesion. 9.Neuro: hairspring assembler II-XII grossly intact. Sensation grossly intact, no focal neurologic deficits. 10.Psych: (AAO) x3. Appropriate mood and affect Course Vital Signs Vital signs: Vital Signs Temperature 36.8 C 12/13/24 12:11 Pulse 98 H 12/13/24 12:11 Respiratory Rate 18 12/13/24 12:11 Blood Pressure 127/83 12/13/24 12:11 Pulse Oximetry 98 12/13/24 12:11 Temperature 37.0 C 12/13/24 13:40 Pulse 91 H 12/13/24 14:10 Pulse 92 H 12/13/24 14:10 Respiratory Rate 20 12/13/24 14:10 Blood Pressure 114/61 12/13/24 14:00 Blood Pressure Mean 72 12/13/24 14:00 Pulse Oximetry 99 12/13/24 14:10 Oxygen Delivery Method Room Air 12/13/24 12:11 Oxygen Flow Rate 0 12/13/24 12:11 Pain Level 8 12/13/24 13:36 Lab/Test Results Lab/Test Results: 12/13/24 13:26 Blood Blood Culture - Pending 12/13/24 13:01 Finger - Right Third Digit Wound Culture - Pending 12/13/24 13:01 Finger - Right Third Digit Gram Stain - Pending 12/13/24 13:12 Blood Blood Culture - Pending Laboratory Tests Range/Units 12/13/24 13:12 WBC (4.4-10.8) 10^3/uL 11.05 H RBC (3.93-5.22) 10^6/uL 5.00 Hgb (11.2-15.7) g/dL 13.3 Hct (36.0-46.0) % 41.1 MCV (80-95) fL 82 MCH (27.0-33.0) pg 26.6 L MCHC (32.0-36.0) % 32.4 RDW (11.7-14.6) % 13.9 Plt Count (130-400) 10^3/uL 144 MPV (8.0-11.0) fL 10.6 Immature Gran % % 0.4 Neutrophils % % 88.5 Lymphocytes % % 8.7 Monocytes % % 2.1 Eosinophils % % 0.1 Basophils % % 0.2 Nucleated RBC % (0.0-0.3) % 0.0 Absolute Neutrophils (1.2-6.7) 10^3/uL 9.78 H Absolute Lymphocytes (1.2-3.4) 10^3/uL 0.96 L Absolute Monocytes (0.1-0.8) 10^3/uL 0.23 Absolute Eosinophils (0.0-0.7) 10^3/uL 0.01 Absolute Basophils (0.0-0.2) 10^3/uL 0.02 VBG Lactate (<or=2.0) mmol/L 1.0 Sodium (136-145) mmol/L 135 L Potassium (3.5-5.1) mmol/L 3.3 L Chloride (98-107) mmol/L 100 Carbon Dioxide (21.0-32.0) mmol/L 24.3 Anion Gap (3-11) mmol/L 10.7 BUN (7-18) mg/dL 10 Creatinine (0.55-1.02) mg/dL 0.8 Est GFR (CKD-EPI 2020) (mL/min/1.73m2) 97.87 Glucose (74-106) mg/dL 103 Calcium (8.5-10.1) mg/dL 8.9 Total Bilirubin (0.2-1.0) mg/dL 0.6 AST (15-37) U/L 16 ALT (14-59) U/L 24 Alkaline Phosphatase (46-116) U/L 67 Total Protein (6.4-8.2) g/dL 7.7 Albumin (3.4-5.0) g/dL 3.2 L Procalcitonin ng/mL 5.02 Medical Decision Making 34-year-old female with a past medical history of IV drug use, previous cellulitis, spinal abscess, previous bacteremia, who presents today for evaluation of redness on her right leg, and swelling lesion on her middle finger. She states that the symptoms have only been present for the last 24 hours. She denies vomiting or diarrhea. She admits to chills but denies fever. She denies chest pain shortness of breath. She denies pleuritic chest pain. She denies history of blood clots or PE. She denies any trauma to those areas. No other complaints at this time. No recent long trips surgeries or procedures. No other modifying factors. Areas are mildly achy, worse with palpation. She denies any systemic joint achiness. She states that it has been 3 weeks since she has used any IV or illicit drugs. Or any IV drugs in general. Patient's right index finger demonstrates swollen bulla with purulent fluid beneath the skin of the mid phalanx of the middle finger on the dorsal aspect. No significant surrounding erythema. No active drainage or discharge. Normal movement of the finger with flexion extension, no significant swelling of the finger otherwise, no sausage shaped digit. No pain with active or passive flexion or extension of the finger. Right lower extremity demonstrates notable erythema from the ankle all the way up to the mid marin circumferentially. Mild +1 pitting edema. No subcutaneous crepitus or evidence of large vesicles or bulla. No bull's-eye lesion. Exam otherwise demonstrates a well-appearing female, no tachycardia or fever. Initial heart rate was borderline at 98, no heart rate greater than 100. Concern for cellulitis for the right lower extremity, as well as mild cellulitis or abscess of the right middle finger. Because of the patient's history, I do feel that further investigatory workup including blood cultures and wound culture is indicated. Patient's right finger lesion was gently lysed, purulent material was exuded. This will be sent for culture. Blood cultures will be drawn, basic labs will be drawn. Will give a dose of IV clindamycin as patient does have a history of MRSA in the past. We will monitor closely and reassess. At this time though the patient does not show any evidence to suggest necrotizing fasciitis, flexor or extensor tenosynovitis, or other limb or digit threatening illness. She has no pleuritic chest pain or shortness of breath to suggest PE. DVT is on the differential though with the right sided leg swelling. 2:53 PM Patient's laboratory workup shows minimally elevated white count of 11, mild left shift without bandemia, electrolytes stable, procalcitonin is 5, lactate is only 1. Heart rate normal. No fever, patient does not meet sepsis criteria and. IV clindamycin was administered. She tolerated this well. Discussed risks and benefits of concern for potential DVT. No ultrasonography is available. Patient has elected to move forward with an IM administration of Lovenox for 24-hour prophylaxis, and we will order ultrasound for the patient's right lower extremity for tomorrow. IV clindamycin was given here, bottle to hold her over for today has been given, and a prescription has been sent. Patient stable for discharge. Discussed red flags for which to return. I have extensively reviewed the treatment plan and discharge instructions with the patient. I have addressed all patient concerns at this time. The patient was made aware of what symptoms to monitor for that would warrant a return to the emergency department. Discussed the plan with the patient, they demonstrate verbal understanding and agreement with our assessment and plan at this time. The documentation in this chart was dictated using [employer] dictation software. Please excuse any dictation errors. PFSH All Active Problems (Updated 08/11/24 @ 00:03 by JAYDE COPELAND) Cellulitis of right middle finger (Acute) Cellulitis of leg, right (Acute) Sepsis due to cellulitis (Acute) IVDU (intravenous drug user) (Acute) Cellulitis (Acute) Back pain (Acute) Influenza A (Acute) Polysubstance abuse (Acute) Acute hypokalemia (Acute) Dehydration (Acute) Cellulitis of left arm (Acute) Previous delivery, delivered (Acute) Medical History Drug abuse Heroin abuse Asthma Migraine Surgical History section (04/01/10) failed induction for post dates. No dilation. Velamentouse cord insertion noted on path report. No distress. Male infant named Alli 7lb 14oz. Family History Father Essential hypertension Diabetes [id number]-[id number] [place]'s chorea Social History Smoking/Tobacco Use Status: Current every day Tobacco Type: cigarettes Years smoked: 15 Smoking risk assessment performed?: Yes Alcohol Intake: never Drug use: Daily Substance use type: heroin, painkillers and IV drugs Details: Hx of drug abuse, currently been w/ [facility] x3mos ago 08/07/2024 Housing: house Do you feel safe at home: Yes Do you feel safe in your relationship?: Yes
[2024-12-13 14:47] LABS: PTT Activated 24.7 sec (20.6-30.2); Prothrombin Time 15.1 sec (9.1-11.1)
[2024-12-13 14:48] LABS: INR 1.5 (0.9-1.1)
[2024-12-13] MEDS: Clindamycin 150 MG CAP, 12 CAPS/BTL 450 MG PO (14:49)
--- NOTE | 2024-12-14 08:15 | NUR.NOTE ---
Nursing Note: DI had a question about reason for US
--- NOTE | 2024-12-15 09:49 | NUR.NOTE ---
Access chart to get the antibiotic on discharge for finger culture; positive MRSA, positive beta strep group A. Given to Dr. Lara. Nursing Note:
--- NOTE | 2024-12-15 15:27 | W.ED.FU ---
Date of service: 12/15/24 Time of Service: 15:28 Follow Up Plan: This patient was seen 2 days ago in the setting of cellulitis of her right leg and right finger. Her finger culture was growing MRSA. She is on outpatient clindamycin. Will continue to observe as an outpatient.
== END 2024-12-13 14:58 | disposition home or self-care (01) ==
PROVIDERS: Emergency Provider Student in an Organized Health Care Education/Training Program; PCP Family Medicine
DX: L03.115 Cellulitis of right lower limb (principal); L03.011 Cellulitis of right finger; Z87.898 Personal history of other specified conditions
CPT/HCPCS: 99284 ×2; 96375; 96372; 36415; 80053; 84145; 87040; 87077; 96365; 83605; 85025; 85610; 85730; 87070; 87186; 87205; J0737; J1650; J1885

== ENCOUNTER 2025-02-07 12:04 | Observation (INO) | payer MEDICAID, SELFPAY ==
[2025-02-07 12:08] VITALS: BP 134/75; PULSE 135; RESP 20; TEMP 36.9; O2SAT 94
--- NOTE | 2025-02-07 12:23 | W.ED.GENAD ---
Discharge Plan Discharge Details Chief Complaint: Fall/Non TraumaCriteria Primary Care Provider: Tiffany Houser V ED Provider: Bruna Ken Home Meds and New Rx's Prescriptions: No Action Mirena 1 EACH intrauterine device 1 insert intrauterine DIRECTED Patient Comments: pt states she has had for a year and half 04/20/16 acetaminophen [Mapap Extra Strength] 500 MG tablet 1,000 mg PO PRN PRN ibuprofen [Ibuprofen IB] 200 MG tablet 400 mg PO PRN PRN gabapentin 300 mg capsule 300 mg PO TID methadone 10 mg/mL Concentrate 170 mg PO DAILY Patient Comments: recent dose increase furosemide [Lasix] 20 mg tablet 20 mg PO DAILY Qty: 5 0RF nicotine [Nicoderm CQ] 21 mg/24 hr Patch 24 Hour 1 patch transdermal DAILY nicotine (polacrilex) 4 mg gum 4 mg PO DIRECTED Patient Comments: CHEW 1 GUM BY MOUTH DIRECTED atomoxetine 40 mg capsule 40 mg PO DAILY Patient Comments: TAKE 1 CAPSULE BY MOUTH EVERY MORNING mupirocin 2 % ointment 1 applic TOPICAL TID Patient Comments: APPLY TOPICALLY TO THE AFFECTED AREA THREE TIMES DAILY FOR 10 DAYS hydroxyzine HCl 25 mg tablet 25 mg PO QID PRN Patient Comments: TAKE 1 TABLET BY MOUTH FOUR TIMES DAILY NEEDED FOR ANXIETY HPI General Date/Time Provider Initiated Documentation: 02/07/25 12:19. HPI Narrative: Pura is a 34-year-old female who presents to the emergency department for evaluation of lower back pain. She reports that pain started today while walking and stretching her leg out, causing her to misstep and feel a popping sensation in her lower back. Pain is radiating along her lower back into both hips. She says this similar to previous episodes of herniated disks. Denies leg weakness/numbness, saddle anesthesia/paresthesias, change in bowel or bladder function. No recent illness such as fever/chills. No other history of trauma. She is a known IV drug user, last used 4 days ago. Does have a history of discitis requiring hospitalization. No known allergies. Related Data Home Medications ?Medication ?Instructions ?Recorded ?Confirmed levonorgestrel (Mirena) 1 insert intrauterine DIRECTED 11/18/14 02/07/25 acetaminophen 500 mg tablet (Mapap 1,000 mg PO PRN PRN 09/13/15 02/07/25 Extra Strength) ibuprofen 200 mg tablet (Ibuprofen 400 mg PO PRN PRN 01/17/16 02/07/25 IB) gabapentin 300 mg capsule 300 mg PO TID 04/18/21 02/07/25 methadone 10 mg/mL oral concentrate 170 mg PO DAILY 04/18/21 12/13/24 Held on 12/13/24. Instructions: Pt Stopped/Never Started nicotine (polacrilex) 4 mg gum 4 mg PO DIRECTED 01/03/23 02/07/25 nicotine 21 mg/24 hr daily 1 patch transdermal DAILY 01/03/23 02/07/25 transdermal patch (Nicoderm CQ) furosemide 20 mg tablet (Lasix) 20 mg PO DAILY #5 tabs 01/13/24 02/07/25 Held on 12/13/24. Instructions: Pt Stopped/Never Started atomoxetine 40 mg capsule 40 mg PO DAILY 08/07/24 02/07/25 hydroxyzine HCl 25 mg tablet 25 mg PO QID PRN 08/07/24 02/07/25 Held on 12/13/24. Instructions: Pt Stopped/Never Started mupirocin 2 % topical ointment 1 applic topical TID 08/07/24 02/07/25 Previous Rx's ?Medication ?Instructions ?Recorded furosemide 20 mg tablet (Lasix) 20 mg PO DAILY #5 tabs 01/13/24 Held on 12/13/24. Instructions: Pt Stopped/Never Started Allergies Allergy/AdvReac Type Severity Reaction Status Date / Time No Known Allergies Allergy Verified 02/07/25 12:14 General Stated Complaint: Fall/Non TraumaCriteria FRANCISCO: 3 Exam Const General: cooperative, healthy appearing, in distress (appears uncomfortable, tearful during exam) and well hydrated Nutritional Appearance: overweight Orientation: alert and oriented x3 Resp Effort & Inspection: normal respiratory effort and able to speak in complete sentences Back/Spine/Pelvis Cervical Spine: normal cervical lordosis and cervical ROM normal Thoracic/Lumbar Spine: straight leg raise negative bilaterally, paraspinal tenderness and lumbar spinal tenderness Neuro General: patient alert, patient oriented x3, gait normal, tone normal and moves all extremities Cognition: normal cognition Speech: speech normal Motor: muscle tone normal throughout and strength 5/5 throughout Sensory Exam: no sensory deficits noted Extrem General: normal to inspection, full ROM, capillary refill normal and normal gait Course Vital Signs Vital signs: Vital Signs Temperature 36.9 C 02/07/25 12:08 Pulse 135 H 02/07/25 12:08 Respiratory Rate 20 02/07/25 12:08 Blood Pressure 134/75 02/07/25 12:08 Pulse Oximetry 94 02/07/25 12:08 Temperature 36.9 C 02/07/25 12:08 Temperature Source Oral 02/07/25 12:08 Pulse 135 H 02/07/25 12:08 Respiratory Rate 20 02/07/25 12:08 Blood Pressure 134/75 02/07/25 12:08 Blood Pressure Position Sitting 02/07/25 12:08 Pulse Oximetry 94 02/07/25 12:08 Oxygen Delivery Method Room Air 02/07/25 12:08 Oxygen Flow Rate 0 02/07/25 12:08 Pain Level 10 02/07/25 12:08 Medical Decision Making 34-year-old female with acute back pain after misstep, history of herniated disc. No numbness in legs or groin. D/Dx includes but is not limited to: Herniated disc, muscle strain/spasm, discitis, spinal epidural abscess. Patient does not meet sepsis criteria. Blood cultures drawn. ED Course: Toradol injection, muscle relaxer, lidocaine patch applied wtih good improvement of symptoms, pt feel more comfortable and is able to rest. Patient does remain tachycardic despite pain control. I independently interpreted the following tests: CBC shows mild leukopenia, white cell count 3.13. Inflammatory markers elevated, sed rate 33 and CRP 2.28. Mild hypokalemia noted, potassium 3.2. hCG negative. I did discuss concern for serious infectious process such as mild epidural abscess versus discitis with patient. I did advise her that even if the CT is negative, an MRI is indicated. She is agreeable with plan to observe overnight if needed. Handoff report given to Dr. Nesbitt, ED physician with CT pending. Patient consented to the use of [facility] PFSH All Active Problems (Updated 08/11/24 @ 00:03 by JAYDE COPELAND) Sepsis due to cellulitis (Acute) IVDU (intravenous drug user) (Acute) Cellulitis (Acute) Back pain (Acute) Influenza A (Acute) Polysubstance abuse (Acute) Acute hypokalemia (Acute) Dehydration (Acute) Cellulitis of left arm (Acute) Previous delivery, delivered (Acute) Medical History Drug abuse Heroin abuse Asthma Migraine Surgical History section (04/01/10) failed induction for post dates. No dilation. Velamentouse cord insertion noted on path report. No distress. Male infant named Alli 7lb 14oz. Family History Father Essential hypertension Diabetes [id number] Ivon's chorea Social History Smoking/Tobacco Use Status: Current every day Tobacco Type: cigarettes Years smoked: 15 Smoking risk assessment performed?: Yes Alcohol Intake: never Drug use: Daily Substance use type: heroin, painkillers and IV drugs Details: Hx of drug abuse, currently been w/ [facility] x3mos ago 08/07/2024. State she randomly does fentanyl last time was saturday 3 days ago Housing: house Do you feel safe at home: Yes Do you feel safe in your relationship?: Yes
--- NOTE | 2025-02-07 12:45 | DI.CT_ITS ---
Exam(s) CT CERVICAL SPINE W EXAM: CT CERVICAL SPINE W CLINICAL HISTORY: back pain, h/o discitis, IVDU. TECHNIQUE: Imaging Protocol: Axial computed tomography images with coronal and sagittal reformatted images were created and reviewed Intravenous contrast: 100 cc Optiray 320 COMPARISON: CT CT LUMBAR SPINE W from 02/07/2025 FINDINGS: CERVICAL SPINE: There is no evidence of acute fracture. No significant prevertebral soft tissue swelling. No significant listhesis. Sclerotic bone densities seen in the anterior half of the C4 vertebral body. This probably benign bone island and measures approximately 5 by 6 by 5 mm. All of the disc spaces exhibit normal height. No abnormal vertebral endplate findings. There is no listhesis. No facet arthropathy No abnormal enhancement seen. No paraspinal masses. Visualized vertebral arteries appear unremarkable. No significant osseous lesions evident. IMPRESSION: No evidence of cervical spine fracture, malalignment, nor acute compromise of the cervical spinal canal. No abnormal soft tissue findings. Given the history here follow-up MRI would add sensitivity and specificity. RADIATION DOSE DELIVERED: 4,162.91mGy.cm Total DLP DATA REPOSITORY: All CT scans at this facility are submitted to the National Radiology Data Registry (NRDR) Dose Index Registry (DIR) with the [employer] (A[employer]). RADIATION OPTIMIZATION: All CT scans at this facility use at least one of these dose optimization techniques: automated exposure control; mA and/or kV adjustment per patient size (includes targeted exams where dose is matched to clinical indication); or iterative reconstruction.
--- NOTE | 2025-02-07 12:45 | DI.CT_ITS ---
Exam(s) CT THORACIC SPINE W EXAM: CT THORACIC SPINE W CLINICAL HISTORY: back pain, h/o discitis, IVDU. TECHNIQUE: Imaging Protocol: Axial computed tomography images with coronal and sagittal reformatted images were created and reviewed. CONTRAST MATERIAL: Intravenous: Omnipaque 350 Contrast volume:100 mL contrast route:IV - COMPARISON: CT CT CERVICAL SPINE W from 02/07/2025 FINDINGS: Bones: No evidence of fracture or listhesis. No significant osseous lesions in thoracic vertebral bodies. No abnormal endplate findings in the thoracic vertebrae. No listhesis. Facet joints unremarkable and no malalignment. Soft tissues: There is no abnormal enhancement in the thoracic spinal column nor in the spinal canal nor within the paraspinal tissues. There are no large disk herniations evident. No abnormal enhancement in the disc spaces and epidural space. There is no abnormal paraspinal enhancement.. IMPRESSION: No significant findings in the thoracic spinal column. RADIATION DOSE DELIVERED: 4,162.91mGy.cm Total DLP DATA REPOSITORY: All CT scans at this facility are submitted to the National Radiology Data Registry (NRDR) Dose Index Registry (DIR) with the [employer] ([employer]). RADIATION OPTIMIZATION: All CT scans at this facility use at least one of these dose optimization techniques: automated exposure control; mA and/or kV adjustment per patient size (includes targeted exams where dose is matched to clinical indication); or iterative reconstruction.
--- NOTE | 2025-02-07 12:45 | DI.CT_ITS ---
Exam(s) CT LUMBAR SPINE W EXAM: CT LUMBAR SPINE W CLINICAL HISTORY: back pain, h/o discitis, IVDU. TECHNIQUE: Imaging Protocol: Axial computed tomography images with coronal and sagittal reformatted images were created and reviewed COMPARISON: No exams were available for comparison FINDINGS: Bones: There are no fractures, listhesis, nor pars defects. There are no lytic osseous lesions evident. There is chronic type disc space narrowing at L4-5 and L5-S1 levels with vacuum phenomena M seen within the central disc space at these 2 levels. There is no abnormal enhancement within the disc spaces nor within the thecal sac and epidural regions. No abnormal paraspinal enhancement. INDIVIDUAL LEVELS: T12-L1:No disc herniation nor canal stenosis. Facet joints unremarkable. No foraminal stenosis. L1-2: No disc herniation nor canal stenosis. Facet joints unremarkable. No foraminal stenosis. L2-3: Normal disc height. No disc herniation but there is mild central spinal canal stenosis related to annular bulging and short AP dimensions of the pedicles and mild degenerative changes in the facet joints. No significant foraminal stenosis. No abnormal enhancement seen at this level. L3-4: Normal disc height. Mild annular bulging. Mild central canal stenosis. No significant foraminal stenosis. Facet joints unremarkable. No foraminal stenosis. L4-5: Chronic disc space narrowing evident. Posterior annular bulging. Moderate central spinal canal stenosis. Also significant bilateral foraminal stenosis. Left facet joint unremarkable. There is some asymmetric regularity of the right facet joint evident which does not have typical appearance of osteoarthritic degenerative changes. There does not appear be obvious abnormal enhancement at this level. L5-S1: Chronic disc space narrowing. Annular bulging. Mild central canal stenosis. Mild degenerative changes in the facet joints. Bilateral moderate foraminal stenosis. The visualized sacroiliac joints and sacrum appear unremarkable. PARASPINAL SOFT TISSUES: Visualized paraspinal tissues appear unremarkable. IMPRESSION: 1. Chronic degenerative disc disease at L4-5 and L5-S1 levels as described above. 2. Multilevel central spinal canal stenosis and there is also multilevel foraminal stenosis 3. The right facet joint at L4-5 level appears slightly eroded. This may be more than typical degenerative osteoarthritic change. Recommend follow-up MRI with intravenous contrast, given the history here. Given the history here cannot exclude inflammatory change around the right facet joint at this level. RADIATION DOSE DELIVERED: 4,162.91mGy.cm Total DLP DATA REPOSITORY: All CT scans at this facility are submitted to the National Radiology Data Registry (NRDR) Dose Index Registry (DIR) with the [employer] ([employer]). RADIATION OPTIMIZATION: All CT scans at this facility use at least one of these dose optimization techniques: automated exposure control; mA and/or kV adjustment per patient size (includes targeted exams where dose is matched to clinical indication); or iterative reconstruction.
[2025-02-07] MEDS: Lidocaine 5% Patch 1 PATCH TP (13:38)
[2025-02-07] MEDS: Ketorolac 30 MG/ML VIAL IM (13:38)
[2025-02-07] MEDS: Cyclobenzaprine 10 MG TAB PO (13:38)
[2025-02-07 13:41] LABS: Abs Immature Grans 0.00 10^3/uL (0.0-0.06); HCT 35.5 % (36.0-46.0); HGB 11.3 g/dL (11.2-15.7); Immature Grans % 0.0 %; MCH 26.2 pg (27.0-33.0); MCHC 31.8 % (32.0-36.0); MCV 82 fL (80-95); MPV 9.0 fL (8.0-11.0); Platelet Count 112 10^3/uL (130-400); RBC 4.31 10^6/uL (3.93-5.22); RDW 14.6 % (11.7-14.6); RDW-SD 43.8 fL; WBC 3.13 10^3/uL (4.4-10.8)
[2025-02-07 13:44] LABS: ESR 33 mm/hr (0-20)
[2025-02-07 14:02] LABS: ALT 17 U/L (14-59); AST 12 U/L (15-37); Albumin 3.3 g/dL (3.4-5.0); Alkaline Phosphatase 63 U/L (46-116); Anion Gap 8.9 mmol/L (3-11); BUN 13 mg/dL (7-18); Bilirubin, Total 0.8 mg/dL (0.2-1.0); C-Reactive Protein 2.28 mg/dL (<or=0.5); CO2 28.1 mmol/L (21.0-32.0); Calcium 8.6 mg/dL (8.5-10.1); Chloride 102 mmol/L (98-107); Estimated GFR 84.97 (mL/min/1.73m2); Glucose 95 mg/dL (74-106); Potassium 3.2 mmol/L (3.5-5.1); Sodium 139 mmol/L (136-145); Total Protein 7.1 g/dL (6.4-8.2)
[2025-02-07 14:29] VITALS: BP 136/90; PULSE 110; RESP 18; O2SAT 96
[2025-02-07 14:45] LABS: Lab Add On Test DONE
[2025-02-07 14:54] LABS: HCG Qual (Serum) Negative
[2025-02-07] MEDS: Normal Saline - Diluent 50 ML VIAL IJ (16:00)
[2025-02-07] MEDS: Omnipaque 350 MG/ML 100 ML BTL IJ (16:00)
--- NOTE | 2025-02-07 19:13 | W.PM.HP.N ---
Date of service: 02/07/25 Time of Service: 19:00 Assessment and Plan Assessment and plan (1) Spasm of muscle of lower back: Status: Acute Assessment and plan: Presumptive muscle spasm, will rule out lumbar spine disease due to history December 2022 MRSA epidural abscess and discitis, not seen in Jul 2024 Elevated ESR and CRP can have multiple causes including recent IVDU Will do MRI cervical/thoracic/lumbar W/WO on SaturdayFeb 08 Treat pain and prevent opioid withdrawal with scheduled oxycodone CR 10 q12h and oxycodone IR 10 q4h PRN (2) Acute hypokalemia: Status: Acute Assessment and plan: K 3.2, will replete PO and recheck (3) Opioid use disorder, severe, dependence: Status: Acute Assessment and plan: History of methadone 170 daily, not on any at this time Ketorolac given in ED Scheduled and PRN oxycodone ordered while hospitalized Hold cyclobenzoprine for low BP Anticipate opioid withdrawal, may be deferred with oxycodone as above while hospitalized (4) IVDU (intravenous drug user): Status: Acute Assessment and plan: Active IV heroin use (5) Tobacco dependence: Status: Acute Assessment and plan: Nicotine patch History of Present Illness History of Present Illness Chief Complaint: lower back pain Narrative: Pura Samaniego is a 34 year old woman presenting February 07 with lower back pain. Patient has a history of 2022 epidural abscess and discitis L3-S1. Today she reports feeling a pop in her lower back when she took a bad step while walking. She feels that she was walking normally and the misstep didn't seem like much. She had immediate pain in her lower back that radiated into her hips, which is the same sensation she had when she had serious spinal disease in the past. She denies problems with bladder/bowel and has no numbness in her perineal area. Patient has a history of IVDU and admits to injecting heroin 4 days prior to arrival. She was treated with antiboitics for skin infections in July and November this year. She denies chest pain, shortness of breath, abdominal pain, N/V/D. 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 cspine and tspine unremarkable[address] CT of the lumbar spine showed chronic degenerative disc disease and multilevel central and foraminal stenosis, with possible new L4-5 erosion of the right facet joint. CBC did not show leukocytosis. Thrombocytopenia 112. ESR elevated 33. Mild hypokalemia 3.2. Elevated CRP 2.28. HCG negative. PFSH All Active Problems (Updated 08/11/24 @ 00:03 by JAYDE COPELAND) Tobacco dependence (Acute) Opioid use disorder, severe, dependence (Acute) Spasm of muscle of lower back (Acute) Sepsis due to cellulitis (Acute) IVDU (intravenous drug user) (Acute) Cellulitis (Acute) Back pain (Acute) Influenza A (Acute) Polysubstance abuse (Acute) Acute hypokalemia (Acute) Dehydration (Acute) Cellulitis of left arm (Acute) Previous delivery, delivered (Acute) Medical History Drug abuse Heroin abuse Asthma Migraine Surgical History section (04/01/10) failed induction for post dates. No dilation. Velamentouse cord insertion noted on path report. No distress. Male named Alli 7lb 14oz. Family History Father Essential hypertension Diabetes [id number]-[id number] Rabun's chorea Social History Smoking/Tobacco Use Status: Current every day Tobacco Type: cigarettes Years smoked: 15 Smoking risk assessment performed?: Yes Alcohol Intake: never Drug use: Daily Substance use type: heroin, painkillers and IV drugs Details: Hx of drug abuse, currently been w/ [facility] x3mos ago 08/07/2024. State she randomly does fentanyl last time was saturday 3 days ago Housing: house Do you feel safe at home: Yes Do you feel safe in your relationship?: Yes Meds Allergies and Home Medications Allergies Allergy/AdvReac Type Severity Reaction Status Date / Time No Known Allergies Allergy Verified 02/07/25 12:14 Home Medications ?Medication ?Instructions ?Recorded ?Confirmed ?Type levonorgestrel (Mirena) 1 insert intrauterine DIRECTED 11/18/14 02/07/25 History acetaminophen 500 mg tablet (Mapap 1,000 mg PO PRN PRN 09/13/15 02/07/25 History Extra Strength) ibuprofen 200 mg tablet (Ibuprofen 400 mg PO PRN PRN 01/17/16 02/07/25 History IB) gabapentin 300 mg capsule 300 mg PO TID 04/18/21 02/07/25 History methadone 10 mg/mL oral concentrate 170 mg PO DAILY 04/18/21 02/07/25 History Held on 12/13/24. Instructions: Pt Stopped/Never Started nicotine (polacrilex) 4 mg gum 4 mg PO DIRECTED 01/03/23 02/07/25 History nicotine 21 mg/24 hr daily 1 patch transdermal DAILY 01/03/23 02/07/25 History transdermal patch (Nicoderm CQ) furosemide 20 mg tablet (Lasix) 20 mg PO DAILY #5 tabs 01/13/24 02/07/25 Rx Held on 12/13/24. Instructions: Pt Stopped/Never Started atomoxetine 40 mg capsule 40 mg PO DAILY 08/07/24 02/07/25 History hydroxyzine HCl 25 mg tablet 25 mg PO QID PRN 08/07/24 02/07/25 History Held on 12/13/24. Instructions: Pt Stopped/Never Started mupirocin 2 % topical ointment 1 applic topical TID 08/07/24 02/07/25 History Exam Narrative Exam Narrative: General: This is a pleasant, obese woman in no distress HEENT: Normocephalic, atraumatic CV: RRR Resp: CTAB Abd: NTND +NBS Back: no tenderness cspine/tspine. Lumbar paraspinal and spinal tenderness. MSK: voluntary motion x4, pain with lower back movement Neuro: awake and alert, no focal deficits Results Labs 02/07/25 13:31 02/07/25 13:31 Labs: Laboratory Results - last 24 hr 02/07/25 02/07/25 13:31 13:32 WBC 3.13 L RBC 4.31 Hgb 11.3 Hct 35.5 L MCV 82 MCH 26.2 L MCHC 31.8 L RDW 14.6 Plt Count 112 L MPV 9.0 Immature Gran % 0.0 Neutrophils % 93.4 Lymphocytes % 5.4 Monocytes % 0.3 Eosinophils % 0.6 Basophils % 0.3 Nucleated RBC % 0.0 Absolute Neutrophils 2.92 Absolute Lymphocytes 0.17 L Absolute Monocytes 0.01 L Absolute Eosinophils 0.02 Absolute Basophils 0.01 ESR 33 H Sodium 139 Potassium 3.2 L Chloride 102 Carbon Dioxide 28.1 Anion Gap 8.9 BUN 13 Creatinine 0.9 Est GFR (CKD-EPI 2020) 84.97 Glucose 95 Calcium 8.6 Total Bilirubin 0.8 AST 12 L ALT 17 Alkaline Phosphatase 63 C-Reactive Protein 2.28 H Total Protein 7.1 Albumin 3.3 L Serum HCG, Qual Negative Add-On Test Request DONE Last Vital Signs Temp 36.9 C 02/07/25 12:08 Pulse 110 H 02/07/25 14:29 Resp 18 02/07/25 14:29 BP 136/90 02/07/25 14:29 Pulse Ox 96 02/07/25 14:29 Time Spent Time spent with Patient: 40-54 minutes Time was spent: preparing to see the patient(eg.review tests), obtaining and/or reviewing separately otained hiistory, ordering medications,tests, procedures, referring, communicating with other health rehab care assistant, indepentently interpreting results, counseling the patient and care coordination
[2025-02-07 19:52] VITALS: BP 94/59; PULSE 84; RESP 18; TEMP 36.6; O2SAT 98
[2025-02-07] MEDS: Normal Saline Flush 10 ML SYR IVP (21:06)
[2025-02-07] MEDS: oxyCODONE-CR 10 MG TABCR PO (21:17)
--- NOTE | 2025-02-07 22:42 | W.PC.ACHO ---
Registration Status: ADM JACEK Primary Language: Preferred Language: Belgian ED Information & Data Chief Complaint Fall/Non TraumaCriteria 02/07/25 12:49 Triage Note patient state she slid and 02/07/25 12:08 fell at home hitting the ground, she heard a popping sound in her back and now her bilateral hips are hurting and her back. Having difficulty walking Medical / Surgical History (Last Reviewed 01/13/24 @ 02:28 by Royer Peterson DO) Drug abuse Heroin abuse Asthma Migraine (Last Reviewed 01/13/24 @ 02:28 by Royer Peterson DO) section (04/01/10) Most Recent Vital Signs Temperature 36.6 C 02/07/25 19:52 Temperature Source Tympanic 02/07/25 19:52 Pulse 84 02/07/25 19:52 Respiratory Rate 18 02/07/25 19:52 Blood Pressure 94/59 L 02/07/25 19:52 Blood Pressure Mean 70 02/07/25 19:52 Blood Pressure Position Sitting 02/07/25 12:08 Pulse Oximetry 98 02/07/25 19:52 Oxygen Delivery Method Room Air 02/07/25 19:52 Oxygen Flow Rate 0 02/07/25 19:52 Pain Level 8 02/07/25 21:16 Allergies No Known Allergies Allergy (Verified 02/07/25 12:14) Active Medications Generic Name Dose Route Start Last Admin Trade Name Reina PRN Reason Stop Dose Admin Iohexol 100 ml 02/07/25 16:00 02/07/25 16:00 Omnipaque 350 Mg/Ml 100 Ml Btl IJ 03/09/25 23:59 100 ml DIRECTED GUANACO Administration Miscellaneous 1 each 02/07/25 20:00 02/07/25 21:22 Patch Removal TP Not Given DAILY@1999 GUANACO Oxycodone HCl 10 mg 02/07/25 20:00 02/07/25 21:17 Oxycodone-Cr 10 Mg Tabcr PO 10 mg Q12H GUANACO Administration Sodium Chloride 50 ml 02/07/25 16:00 02/07/25 16:00 Normal Saline - Diluent 50 Ml Vial IJ 50 ml DIRECTED GUANACO Administration Sodium Chloride 0 ml 02/07/25 20:00 02/07/25 21:06 Normal Saline Flush 10 Ml Syr IVP 10 ml BID GUANACO Administration IV IV Catheter Type [Right Peripheral IV Antecubital] IV Catheter Gauge [Right 18 Antecubital] Diet Orders Category Date Time Status Regular/Normal [DIET] Nutrition 02/08/25 Breakfast Ordered Diagnostics 02/07/25 02/07/25 Range/Units 13:32 13:31 WBC 3.13 L (4.4-10.8) 10^3/uL RBC 4.31 (3.93-5.22) 10^6/uL Hgb 11.3 (11.2-15.7) g/dL Hct 35.5 L (36.0-46.0) % MCV 82 (80-95) fL MCH 26.2 L (27.0-33.0) pg MCHC 31.8 L (32.0-36.0) % RDW 14.6 (11.7-14.6) % Plt Count 112 L (130-400) 10^3/uL MPV 9.0 (8.0-11.0) fL Immature Gran % 0.0 % Neutrophils % 93.4 % Lymphocytes % 5.4 % Monocytes % 0.3 % Eosinophils % 0.6 % Basophils % 0.3 % Nucleated RBC % 0.0 (0.0-0.3) % Absolute Neutrophils 2.92 (1.2-6.7) 10^3/uL Absolute Lymphocytes 0.17 L (1.2-3.4) 10^3/uL Absolute Monocytes 0.01 L (0.1-0.8) 10^3/uL Absolute Eosinophils 0.02 (0.0-0.7) 10^3/uL Absolute Basophils 0.01 (0.0-0.2) 10^3/uL ESR 33 H (0-20) mm/hr Sodium 139 (136-145) mmol/L Potassium 3.2 L (3.5-5.1) mmol/L Chloride 102 (98-107) mmol/L Carbon Dioxide 28.1 (21.0-32.0) mmol/L Anion Gap 8.9 (3-11) mmol/L BUN 13 (7-18) mg/dL Creatinine 0.9 (0.55-1.02) mg/dL Est GFR (CKD-EPI 2020) 84.97 (mL/min/1.73m2) Glucose 95 (74-106) mg/dL Calcium 8.6 (8.5-10.1) mg/dL Total Bilirubin 0.8 (0.2-1.0) mg/dL AST 12 L (15-37) U/L ALT 17 (14-59) U/L Alkaline Phosphatase 63 (46-116) U/L C-Reactive Protein 2.28 H (<or=0.5) mg/dL Total Protein 7.1 (6.4-8.2) g/dL Albumin 3.3 L (3.4-5.0) g/dL Serum HCG, Qual Negative Add-On Test Request DONE 02/07/25 14:05 Blood Culture - Pending Blood 02/07/25 13:31 Blood Culture - Pending Blood Intake and Output - 24 Hour Total 02/07/25 12:04 thru 02/07/25 21:23 Intake Total 120 Balance 120 Weight 113.398 kg Intake: Oral 120 Falls Risk Assessment History of Falls Admit Due to Fall 02/07/25 13:02 Contributing Factors No Factors 02/07/25 13:02 Ambulatory Aids Independent 02/07/25 13:02 Tubes/Lines None 02/07/25 13:02 Gait Evaluation No gait disturbance 02/07/25 13:02 Cognition No cognitive impairment 02/07/25 13:02 Fall Total Score 25 02/07/25 13:02 Level of Risk Moderate Risk 02/07/25 13:02 v v v v v v v v v Sending and/or Receiving Nurses: Please use comment section below to note any information pertinent to the patient hand-off not included above. Information / Comments: pt A&Ox4, on RA, VS stable, CT lumar shoswed L4-5 slightly eroded, pt will go for MRI at the morning to rule out abscess. Report received from: Regis COLLAZO
[2025-02-08] MEDS: Potassium Chloride 20 MEQ TABCR PO (00:34)
[2025-02-08 07:24] LABS: Abs Immature Grans 0.02 10^3/uL (0.0-0.06); HCT 36.3 % (36.0-46.0); HGB 11.6 g/dL (11.2-15.7); Immature Grans % 0.4 %; MCH 26.7 pg (27.0-33.0); MCHC 32.0 % (32.0-36.0); MCV 84 fL (80-95); MPV 9.6 fL (8.0-11.0); Platelet Count 133 10^3/uL (130-400); RBC 4.34 10^6/uL (3.93-5.22); RDW 15.0 % (11.7-14.6); RDW-SD 46.1 fL; WBC 5.65 10^3/uL (4.4-10.8)
[2025-02-08 07:30] VITALS: BP 114/78; PULSE 90; RESP 17; TEMP 36.5; O2SAT 100
[2025-02-08 07:35] LABS: ALT 16 U/L (14-59); AST 19 U/L (15-37); Albumin 2.8 g/dL (3.4-5.0); Alkaline Phosphatase 51 U/L (46-116); Anion Gap 7.9 mmol/L (3-11); BUN 18 mg/dL (7-18); Bilirubin, Total 0.2 mg/dL (0.2-1.0); CO2 28.1 mmol/L (21.0-32.0); Calcium 8.6 mg/dL (8.5-10.1); Chloride 104 mmol/L (98-107); Estimated GFR 97.87 (mL/min/1.73m2); Glucose 104 mg/dL (74-106); Magnesium 2.2 mg/dL (1.8-2.4); Potassium 3.8 mmol/L (3.5-5.1); Sodium 140 mmol/L (136-145); Total Protein 6.5 g/dL (6.4-8.2)
[2025-02-08 07:41] LABS: INR 1.3 (0.9-1.1); Prothrombin Time 12.8 sec (9.1-11.1)
[2025-02-08] MEDS: Enoxaparin 40 MG/0.4 ML SYR SC (07:47)
[2025-02-08] MEDS: Acetaminophen 325 MG TAB 650 MG PO ×2 (07:47→15:12)
[2025-02-08] MEDS: Normal Saline Flush 10 ML SYR IVP ×3 (07:47→20:46)
[2025-02-08] MEDS: oxyCODONE-CR 10 MG TABCR PO ×2 (07:48→20:45)
--- NOTE | 2025-02-08 08:00 | DI.MRI_ITS ---
Exam(s) MR THORACIC SPINE WO/W EXAM: MR THORACIC SPINE WO/W CLINICAL HISTORY: query discitis see December TECHNIQUE: Multisequence MRI of the thoracic spine was performed on 1.5 johana unit with both pre and post contrast infused sequences. Intravenous contrast injected was 20 mL Dotarem. COMPARISON: MR MR CERVICAL SPINE WO/W from 02/08/2025 FINDINGS: OSSEOUS: Is no abnormal marrow signal in the thoracic vertebrae. There are no acute appearing thoracic vertebral fractures. Also no abnormal signal nor enhancement in the thoracic facet joints. There are no ominous osseous lesions in the thoracic vertebrae. THORACIC SPINAL CORD: There is no abnormal signal in the cervical spinal cord and no evidence of focal cord atrophy nor focal cord swelling. There is no evidence of syringomyelia nor significant spinal cord dysraphism. There is no evidence of mass at the conus medullaris. The position of the conus medullaris is at L1 level. SIGNIFICANT INDIVIDUAL LEVEL FINDINGS: No abnormal epidural nor paraspinal collections. There are small subligamentous disc bulges at the T6-7, T7-T8 and T8-T9 levels. These bulges indent the thecal sac but not the spinal cord and there is no prominent spinal canal stenosis at these levels. Also no abnormal enhancement at these levels. PARASPINAL TISSUES: No significant masses nor fluid collections evident. IMPRESSION: 1. There are mild subligamentous disc bulges evident at T6-T7, T7-8 T, and T8-T9 levels. No significant central canal stenosis at these levels and no foraminal stenosis. 2. No evidence of discitis nor epidural nor paraspinal collections. 3. No abnormal facet joint findings in the thoracic spine. DATA REPOSITORY:
--- NOTE | 2025-02-08 08:00 | DI.MRI_ITS ---
Exam(s) MR LUMBAR SPINE WO/W EXAM: MR LUMBAR SPINE WO/W CLINICAL HISTORY: query discitis see December. TECHNIQUE: Multiplanar multisequence MRI of the Lumbar spine was performed on a 1.5 johana unit with both pre and post contrast infused sequences. Intravenous contrast injected was 20 mL Dotarem COMPARISON: MR MR LUMBAR SPINE WO/W from 01/03/2023 MR MR LUMBAR SPINE WO/W from 08/07/[address] LUMBAR SPINE W from 02/07/2025 FINDINGS: Images are somewhat degraded by motion artifact and some sequences had to be repeated Conus medullaris is again noted to be at normal level (L1). There is no evidence of conus mass nor subjacent clumping of intrathecal nerve roots to suggest arachnoiditis. The distal thecal sac appears unremarkable.There is no evidence of Tarlov intrasacral cysts nor other significant findings within the sacral canal Bones:There are no fractures nor ominous osseous lesions in the lumbar vertebral bodies and visualized sacrum. With respect to the individual levels... T12-L1: Normal disc height and signal. No disc herniation or canal stenosis. No foraminal stenosis. No significant facet arthropathy. No abnormal enhancement at this level. L1-2: Normal disc height and signal. No disc herniation nor central canal stenosis.No foraminal stenosis no significant facet arthropathy. No abnormal enhancement at this level L2-3: Normal disc height and signal. No significant disc herniation nor central canal stenosis. No foraminal stenosis. Mild facet arthropathy. No abnormal enhancement evident at this level. L3-4: Normal disc height and signal. Mild symmetrical annular bulging without a dominant disc herniation. Central canal dimensions are lower normal. No significant foraminal stenosis. Mild degenerative changes in the facet joints. L4-5: Chronic decreased disc height and signal. There is no abnormal bright signal in the disc space. Posteriorly there is significant annular bulging, this extending into the floor of the exiting right neural foramen. Mild- moderate central canal stenosis. There is only mild right-sided foraminal s tenosis. No foraminal stenosis on the left side. Left facet joint appears unremarkable, however, there are asymmetric findings in the right facet joint, as also evident on recent CT scan performed yesterday. There is no prominent STIR bright signal in this region but there does appear to be some mild enhancement in the right facet joint and subjacent to the ipsilateral right ligamentum flavum at this level. There does not appear to be an enhancing collection in the actual epidural space at this level at this time, as was previously evident on the MRI scan of 01/03/2023. L5-S1: Chronic decreased disc height and signal. No abnormal disc enhancement. There is annular bulging which extends into the floor of the exiting bilateral neural foramina resulting in mild-moderate bilateral foraminal stenosis.. There is no epidural collection at this level. No enhancement in either facet joint at this level. Soft tissues: There are no enhancing abnormalities evident within the paraspinal musculature. IMPRESSION: 1. Compared to the prior MRI scan of December 2022 there is presently no evidence obvious discitis nor epidural space fluid collection. 2. However, at the L4-5 level there is mild enhancement related to the right facet joint and subjacent to the ipsilateral right ligamentum flavum. This corresponds to the abnormal appearing right facet joint described on the CT scan performed 1 day prior and was involved with infection on prior MRI scan of December 2022. at that time there is also L4-5 and L5-S1 discitis and a long segment epidural abscess from L4 through S1. Although this type of fluid collection is not seen at this time, is difficult to determine if the finding seen on the present scan at L4-5 are chronic sequelae of the previously more prominent infection at this level or possibly related to early recurrence of septic joint of the right facet joint at the L4-5 level. 3. Recommend correlation with clinical findings and blood work as well as repeat MRI imaging after short clinical interval to determine if there is progression or regression of the findings described on today's MRI study. DATA REPOSITORY:
--- NOTE | 2025-02-08 08:00 | DI.MRI_ITS ---
Exam(s) MR CERVICAL SPINE WO/W EXAM: MR CERVICAL SPINE WO/W CLINICAL HISTORY: query discitis see December TECHNIQUE: Multi cecal MRI of the cervical spine was performed on 1.5 johana unit with both pre and post contrast infused sequences. Intravenous contrast injected was 20 mL Dotarem COMPARISON: MR MR CERVICAL SPINE WO/W from 08/07/2024 FINDINGS: CERVICOMEDULLARY JUNCTION: Intact with no evidence of cerebellar tonsillar ectopia. No obvious abnormality of the odontoid process. No evidence of Chiari 1 malformation. Mucosal thickening noted in the sphenoid sinus the most peripheral aspect of the field of view of this sagittal images. CERVICAL SPINAL CORD: There is no abnormal signal in the cervical spinal cord and no evidence of focal cord atrophy nor focal cord swelling. OSSEOUS:There are no cervical fractures evident. No significant osseous lesions in the cervical vertebrae. Cervical curvature is maintained. INDIVIDUAL LEVELS: C2-3: No disc herniation nor central canal stenosis. No foraminal stenosis. No facet arthropathy. No abnormal enhancement at this level. C3-4: No disc herniation nor central canal stenosis.No facet arthropathy. No foraminal stenosis. No abnormal enhancement at this level C4-5: No disc herniation nor central canal stenosis.No facet arthropathy. No foraminal stenosis. No abnormal enhancement at this level C5-6: No disc herniation or canal stenosis. No significant facet arthropathy. No significant foraminal stenosis. There is no abnormal enhancement at this level. C6-7: Normal disc height and signal. There is small central subligamentous annular bulging but without a prominent disc herniation and there is no central canal stenosis. Facet joints appear unremarkable. There is no foraminal stenosis. No abnormal enhancement at this level. C7-T1: No disc herniation nor central canal stenosis. No facet arthropathy.No foraminal stenosis. No significant enhancement at this level. IMPRESSION: 1. Mild findings at C6-7 level. 2. No evidence of prominent disc herniation or central canal stenosis nor foraminal stenosis in the cervical spinal column 3. No abnormal collections nor abnormal enhancement in the cervical spine. DATA REPOSITORY:
--- NOTE | 2025-02-08 08:02 | PDOC.CMIN ---
Date of service: 02/08/25 Time of Service: 12:34 Care Management Initial Assmt Initial Assessment Reason for Hospitalization: Lumbar pain Functional Status/Living Situation Patient Presentation: Pura was sitting up in bed and awake when CM met with her. Pura presented to the ED for evaluation of lower back pain. Per report, Pura is pending an MRI. She reports residing with family in their home in [place]. She states she is independent at baseline, including the ability to drive, and shares a vehicle with her brother. She denies involvement with any community support agencies. Pura has expressed a desire to be discharged today and return for the MRI on an outpatient basis. CM communicated this preference to the provider. CM will continue to follow. Town of Residence: [place] Resides with: Spouse (Karri) Significant Other/Family: Local Natural Supports: family Instrumental Activities of Daily Living (ADLs): Independent Medications Medication Management: No Issues/Barriers identified Advance Directives Advance Directives: Do you have an Advance Directive: N 02/27/13, 11:19 AD On File at [facility]: N 02/27/13, 11:19 Date Asked 02/07/25 02/07/25, 19:51 AD Date Reviewed COLST On File at [facility] COLST Date Scanned Code Status Resuscitation Status Full Code Portal Pt does not currently have a portal and education provided: Yes Insurance Coverage/Financial Issues Insurance: Medicaid of [place] - [id number] Care Team Visit Care Team Role Provider Type Mary Ellen Ruiz NP MD [facility] STAFF PHYSICIAN Tiffany Houser MD Primary Care Provider [facility] STAFF PHYSICIAN Isauro Nesbitt MD Emergency Provider [facility] STAFF PHYSICIAN Anand Tuttle MD Admit Provider [facility] STAFF PHYSICIAN Attending Provider Discharge Potential Discharge Needs: PCP F/U Appt Anticipated Barriers to Discharge: None Identified Patient/Family Education Needs: Review discharge instructions, discuss Ask Me Three Transportation: Private vehicle Plan: Anticipate Pura will be discharged home once medically ready, with no new services indicated. MRI pending. It is recommended that Pura will follow up with her primary care providers and continue per her plan of care. Pura will likely transport via private vehicle by her family. CM will continue to follow. Social Determinants of Health Screening Social Determinants of health last assessed in clinic: 02/08/25 Will the Patient Participate in the Screening?: Declined to provide Do you worry about having a steady place to live?: no Problems where you live: no known problems In the past 12 months, have you had to go without electric, gas, oil or water in your home?: no 1. Within the past 12 months, we worried whether our food would run out before we got money to buy more.: Never true 2. Within the past 12 months, the food we bought just didn't last and we didn't have money to get more.: Never true Has lack of transportation kept you from medical appointments or from doing things needed for daily living?: no Has anyone in your life made you feel unsafe or unsupported?: no How hard is it for you to pay for the very basics like food, housing, medical care, and heating? Would you say it is:: Not hard at all Do you want help finding or keeping work or a job?: I do not need or want help If for any reason you need help with day-to-day activities such as bathing, preparing meals, shopping, managing finances, etc., do you get the help you need?: I don?t need any help How often do you feel lonely or isolated from those around you?: Never Do you speak a language other than Maltese at home?: No Does the patient want assistance with any of the above?: No PFSH All Active Problems (Updated 08/11/24 @ 00:03 by JAYDE COPELAND) Tobacco dependence (Acute) Opioid use disorder, severe, dependence (Acute) Spasm of muscle of lower back (Acute) Sepsis due to cellulitis (Acute) IVDU (intravenous drug user) (Acute) Cellulitis (Acute) Back pain (Acute) Influenza A (Acute) Polysubstance abuse (Acute) Acute hypokalemia (Acute) Dehydration (Acute) Cellulitis of left arm (Acute) Previous delivery, delivered (Acute) Medical History Drug abuse Heroin abuse Asthma Migraine Surgical History section (04/01/10) failed induction for post dates. No dilation. Velamentouse cord insertion noted on path report. No distress. Male infant named Alli 7lb 14oz. Family History Father Essential hypertension Diabetes Juirod-ja-hot Long's chorea Social History Smoking/Tobacco Use Status: Current every day Tobacco Type: cigarettes Years smoked: 15 Smoking risk assessment performed?: Yes Alcohol Intake: never Drug use: Daily Substance use type: heroin, painkillers and IV drugs Details: Hx of drug abuse, currently been w/ [facility] x3mos ago 08/07/2024. State she randomly does fentanyl last time was saturday 3 days ago Housing: other Do you feel safe at home: Yes Do you feel safe in your relationship?: Yes Readmission Within the Past 30 Days Yes or No: No
[2025-02-08] MEDS: oxyCODONE 10 MG TAB PO (15:12)
[2025-02-08 15:32] VITALS: BP 131/83; PULSE 93; RESP 17; TEMP 36.5; O2SAT 99
[2025-02-08] MEDS: Gadoterate meglumine 20 ML SYRINGE IVP (17:25)
--- NOTE | 2025-02-08 19:56 | W.PM.PROGNOT ---
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, not seen in Jul 2024 Elevated ESR and CRP can have multiple causes including recent IVDU MRI done - results pending (MRI was down until 1600 today) Treat pain and prevent opioid withdrawal with scheduled oxycodone CR 10 q12h and oxycodone IR 10 q4h PRN (2) Acute hypokalemia: Status: Resolved Assessment and plan: 3.8 (3) Opioid use disorder, severe, dependence: Status: Acute Assessment and plan: History of methadone 170 daily, not on any at this time Ketorolac given in ED Scheduled and PRN oxycodone ordered while hospitalized Hold cyclobenzoprine for low BP Anticipate opioid withdrawal, may be deferred with oxycodone as above while hospitalized (4) IVDU (intravenous drug user): Status: Acute Assessment and plan: Active IV heroin use (5) Tobacco dependence: Status: Acute Assessment and plan: Nicotine patch Subjective Subjective Patient reports: no new complaints, pain is less, tolerating liquids well, tolerating a regular diet, voiding w/o difficulty, bowel movement and afebrile; denies diarrhea, nausea, vomiting or shortness of breath Interval history since last seen: awake, alert, would like to leave but understands the importance of MRI and is willing to stay. Objective Last Vital Signs Temp 36.5 C 02/08/25 15:32 Pulse 93 H 02/08/25 15:32 Resp 17 02/08/25 15:32 BP 131/83 02/08/25 15:32 Pulse Ox 99 02/08/25 15:32 Laboratory Results - last 24 hr 02/08/25 02/08/25 06:40 07:11 WBC 5.65 RBC 4.34 Hgb 11.6 Hct 36.3 MCV 84 MCH 26.7 L MCHC 32.0 RDW 15.0 H Plt Count 133 MPV 9.6 Immature Gran % 0.4 Neutrophils % 68.4 Lymphocytes % 16.1 Monocytes % 10.3 Eosinophils % 4.6 Basophils % 0.2 Nucleated RBC % 0.0 Absolute Neutrophils 3.87 Absolute Lymphocytes 0.91 L Absolute Monocytes 0.58 Absolute Eosinophils 0.26 Absolute Basophils 0.01 PT 12.8 H INR 1.3 H Sodium 140 Potassium 3.8 Chloride 104 Carbon Dioxide 28.1 Anion Gap 7.9 BUN 18 Creatinine 0.8 Est GFR (CKD-EPI 2020) 97.87 Glucose 104 Calcium 8.6 Magnesium 2.2 Total Bilirubin 0.2 AST 19 ALT 16 Alkaline Phosphatase 51 Total Protein 6.5 Albumin 2.8 L Time Spent with Patient Time Spent with Patient: 25-34 minutes Time was spent: preparing to see the patient(eg.review tests), ordering medications,tests, procedures, referring, communicating with other health infant childcare provider, indepentently interpreting results, counseling the patient and care coordination
[2025-02-08 20:06] VITALS: BP 117/82; PULSE 80; RESP 20; TEMP 36.5; O2SAT 98
--- NOTE | 2025-02-08 20:29 | DI.VRAD_ITS ---
PROCEDURE INFORMATION: Exam: MR Lumbar Spine Without and With Contrast Exam date and time: 02/08/2025 4:21 PM Age: 34 years old Clinical indication: Other: ? Discitis / infected facet. ; Additional info: ? Discitis / infected facet. Please see prior MR scan from December 2022 TECHNIQUE: Imaging protocol: Magnetic resonance imaging of the lumbar spine without and with contrast. Contrast material: DOTAREM; Contrast volume: 20 ml; Contrast route: INTRAVENOUS (IV); COMPARISON: CT LUMBAR SPINE W 02/07/2025 3:32 PM FINDINGS: No abnormal marrow signal. Lumbar vertebral body heights are maintained. No cord compression. No abnormal cord signal. Conus medullaris terminates at the L1 level. Paravertebral soft tissues are unremarkable. L1-L2: Broad-based disc bulge and facet hypertrophy cause mild canal narrowing. Left foraminal disc protrusion causes moderate left foraminal narrowing. Mild right foraminal narrowing. L2-L3: Broad-based disc bulge and facet hypertrophy cause mild canal narrowing and [id number] bilateral foraminal narrowing. L3-L4: Broad-based disc bulge and facet hypertrophy cause mild to moderate canal narrowing with mild right and [id number] left foraminal narrowing. L4-L5: Broad-based disc bulge and facet hypertrophy cause moderate canal narrowing with partial effacement of the bilateral lateral recesses. Moderate bilateral foraminal narrowing. L5-S1: Broad-based disc bulge and facet hypertrophy cause mild canal narrowing and moderate bilateral foraminal narrowing. IMPRESSION: 1. No acute findings in the lumbar spine. 2. Multilevel spondylotic changes of the lumbar spine, as detailed above. Dictated and Authenticated by: Jose Ahuja MD. Orderin Parag Michel MD
[2025-02-09 06:39] LABS: Abs Immature Grans 0.02 10^3/uL (0.0-0.06); HCT 37.0 % (36.0-46.0); HGB 11.8 g/dL (11.2-15.7); Immature Grans % 0.5 %; MCH 26.9 pg (27.0-33.0); MCHC 31.9 % (32.0-36.0); MCV 85 fL (80-95); MPV 9.8 fL (8.0-11.0); Platelet Count 154 10^3/uL (130-400); RBC 4.38 10^6/uL (3.93-5.22); RDW 15.2 % (11.7-14.6); RDW-SD 46.5 fL; WBC 4.44 10^3/uL (4.4-10.8)
[2025-02-09 06:53] LABS: Magnesium 2.2 mg/dL (1.8-2.4)
[2025-02-09 06:59] LABS: ALT 15 U/L (14-59); AST 16 U/L (15-37); Albumin 2.7 g/dL (3.4-5.0); Alkaline Phosphatase 49 U/L (46-116); Anion Gap 3.9 mmol/L (3-11); BUN 17 mg/dL (7-18); Bilirubin, Total 0.2 mg/dL (0.2-1.0); C-Reactive Protein 6.39 mg/dL (<or=0.5); CO2 31.1 mmol/L (21.0-32.0); Calcium 8.6 mg/dL (8.5-10.1); Chloride 107 mmol/L (98-107); Estimated GFR 114.88 (mL/min/1.73m2); Glucose 96 mg/dL (74-106); Potassium 4.0 mmol/L (3.5-5.1); Sodium 142 mmol/L (136-145); Total Protein 6.4 g/dL (6.4-8.2)
[2025-02-09 07:42] VITALS: BP 124/91; PULSE 76; RESP 17; TEMP 36.8; O2SAT 100
[2025-02-09] MEDS: oxyCODONE-CR 10 MG TABCR PO (07:54)
[2025-02-09] MEDS: oxyCODONE 10 MG TAB PO (07:55)
[2025-02-09] MEDS: Enoxaparin 40 MG/0.4 ML SYR SC (08:34)
[2025-02-09] MEDS: Normal Saline Flush 10 ML SYR IVP (08:34)
--- NOTE | 2025-02-09 09:09 | DSE_ITS ---
Date of service: 02/09/25 Time of Service: 09:09 DS: Diagnosis Discharge Diagnosis (1) Spasm of muscle of lower back: Status: Acute (2) Acute hypokalemia: Status: Resolved (3) Opioid use disorder, severe, dependence: Status: Acute (4) IVDU (intravenous drug user): Status: Acute (5) Tobacco dependence: Status: Acute Discharge Plan Disposition Patient Disposition: Home Condition: Improving Discharge Details Reason For Visit: Lumbar Pain Admit Date/Time: 02/07/25 18:58 Admit Provider: Anand Tuttle Attending Provider: Anand Tuttle Primary Care Provider: Tiffany Houser V Hospital Course Hospital Course: The patient presented with sudden onset lower back pain after a misstep while walking, described as similar to her prior spinal infection. She denied bowel/bladder changes or saddle anesthesia. Initial labs showed mild thrombocytopenia (112), hypokalemia (3.2), elevated ESR (33), and elevated CRP (2.28). She remained afebrile, without leukocytosis. CT cervical, thoracic, and lumbar spine were performed, showing chronic degenerative disc disease with multilevel stenosis and possible new L4-5 facet changes but no acute findings. Given her past history, MRI of the cervical, thoracic, and lumbar spine with and without contrast was obtained the following day, which showed no acute spinal infection or new pathology. Her pain was managed with scheduled and PRN oxycodone, and potassium was repleted. She was monitored for opioid withdrawal during admission. No neurological deficits developed. She remained hemodynamically stable, tolerating oral intake, and ambulating independently. Pertinent Results * CT/MRI spine: No acute infection, no new discitis or abscess * Labs: Platelets 112, ESR 33, CRP 2.28, K 3.2 (corrected), WBC 3.13 (low but stable) Discharge Diagnoses * Acute lower back pain, likely muscle spasm ? CT/MRI negative for acute infection * Opioid use disorder, severe, dependence * IV drug use, active (heroin, intermittent fentanyl) * Hypokalemia, resolved with repletion * Tobacco dependence Discharge Medications * Continue home medications as previously prescribed - patient reports she only takes methadone. Discharge Instructions * Return to the ED immediately for fever, worsening back pain, neurological changes (weakness, numbness, bowel/bladder changes). * Follow-up with primary care provider (Dr. Tiffany Houser) within 1 week. * Strongly encouraged to re-establish with addiction treatment program (methadone or buprenorphine therapy). * Smoking cessation resources offered. Condition on Discharge Stable, ambulating, pain controlled, neurologically intact. Home Meds and New Rx's Prescriptions: Continued Mirena 1 EACH intrauterine device 1 insert intrauterine DIRECTED Patient Comments: pt states she has had for a year and half 04/20/16 acetaminophen [Mapap Extra Strength] 500 MG tablet 1,000 mg PO PRN PRN methadone 10 mg/mL Concentrate 170 mg PO DAILY Patient Comments: recent dose increase Discontinued ibuprofen [Ibuprofen IB] 200 MG tablet 400 mg PO PRN PRN gabapentin 300 mg capsule 300 mg PO TID furosemide [Lasix] 20 mg tablet 20 mg PO DAILY Qty: 5 0RF nicotine [Nicoderm CQ] 21 mg/24 hr Patch 24 Hour 1 patch transdermal DAILY nicotine (polacrilex) 4 mg gum 4 mg PO DIRECTED Patient Comments: CHEW 1 GUM BY MOUTH DIRECTED atomoxetine 40 mg capsule 40 mg PO DAILY Patient Comments: TAKE 1 CAPSULE BY MOUTH EVERY MORNING mupirocin 2 % ointment 1 applic TOPICAL TID Patient Comments: APPLY TOPICALLY TO THE AFFECTED AREA THREE TIMES DAILY FOR 10 DAYS hydroxyzine HCl 25 mg tablet 25 mg PO QID PRN Patient Comments: TAKE 1 TABLET BY MOUTH FOUR TIMES DAILY NEEDED FOR ANXIETY Discharge Instructions Additional Instructions: Diagnosis: Back pain (non-surgical) Activity * Stay as active as possible; avoid prolonged bed rest. * Gradually return to normal activities as tolerated. * Avoid heavy lifting (>10?15 lbs) and twisting movements for the next few days. * Use proper body mechanics: bend at the knees, not at the waist. Pain Management * Heat or Cold Therapy: * Apply heat (heating pad or warm compress) for 15?20 minutes, 3?4 times daily to relax muscles. * Cold packs can help reduce inflammation during the first 24?48 hours. * Medications: * Acetaminophen (Tylenol): Take as directed for pain relief. * NSAIDs (e.g., ibuprofen or naproxen): Take as directed for pain and inflammation, if not contraindicated. * Continue Methadone as prescribed by your pain management provider. * Do not restart any previously discontinued medications unless directed by your doctor. * Avoid opioids for routine pain management unless specifically instructed. Posture & Ergonomics * Maintain good posture when sitting and standing. * Use a supportive chair and avoid slouching. * When sleeping, use a firm mattress; lying on your side with a pillow between your knees may help. Stretching & Exercise * Gentle stretching and walking can help speed recovery. * Avoid strenuous activities or high-impact exercise until cleared by your provider. Red Flag Symptoms ? Seek Medical Attention Immediately if: * New or worsening leg weakness or numbness. * Loss of bowel or bladder control. * Severe, unrelenting pain not relieved by rest or medications. * Fever, chills, or unexplained weight loss with back pain. Follow-Up * Follow up with your primary care provider or specialist as scheduled. * Consider referral to physical therapy if pain persists. Stand Alone Forms: Nursing Discharge Form Referrals: Tiffany Houser MD [Primary Care Provider, Medicine] Referral Note: 1-2 weeks post hospitalization for back pain. CT/MRI - negative. Please call your primary care to schedule a follow up appointment. Activity:: Activity as Tolerated Equipment/Supplies:: No Equipment Needed Diet:: As Tolerated Discharge Orders Discharge Orders: Discharge Order (Routine); Ordered 02/09/25 Ordered By: Mary Ellen Ruiz Discharge Data Discharge Date/Time-TO BE ENTERED AT DEPARTURE: 02/09/25 10:30 DS: Summary Time Spent with Patient providing and/or coordinating discharge services: Less than 30 minutes Status at Discharge Functional status at discharge: independent ambulation Overall status at discharge: patient is back to baseline Mental Status: mental status grossly normal Speech and Movement: speech and movement normal Mood: congruent mood Affect: normal affect Exam Narrative Exam Narrative: General: This is a pleasant, obese woman in no distress HEENT: Normocephalic, atraumatic CV: RRR Resp: CTAB Abd: NTND +NBS Back: no tenderness cspine/tspine. Lumbar paraspinal and spinal tenderness. MSK: voluntary motion x4, pain with lower back movement Neuro: awake and alert, no focal deficits Psych Mental Status: mental status grossly normal Speech and Movement: speech and movement normal Mood: congruent mood Affect: normal affect DS: Data Vitals/I&O Vitals and I&O: Vital Signs Temperature 36.8 C 02/09/25 07:42 Temperature Source Tympanic 02/09/25 07:42 Pulse 76 02/09/25 07:42 Respiratory Rate 17 02/09/25 07:42 Respiratory Effort Normal 02/07/25 21:00 Respiratory Depth Normal 02/07/25 21:00 Respiratory Pattern Normal 02/07/25 21:00 Blood Pressure 124/91 H 02/09/25 07:42 Blood Pressure Mean 102 02/09/25 07:42 Blood Pressure Position Sitting 02/07/25 12:08 Pulse Oximetry 100 02/09/25 07:42 Oxygen Delivery Method Room Air 02/09/25 07:42 Oxygen Flow Rate 0 02/09/25 07:42 Pain Level 4 02/09/25 08:55 Intake & Output 02/08/25 02/08/25 02/09/25 11:59 23:59 11:59 Intake Total 250 / 470 220 / 470 480 / 480 Output Total 500 / 500 Balance 250 / 470 220 / 470 -20 / -20 Intake: Oral 250 / 470 220 / 470 480 / 480 Output: Urine 500 / 500 Other: Urine Color Yellow Pale Yellow Urine Appearance Clear Urine Odor Normal Normal Comment Pt voids ind. in toilet. Pt voids ind. in toilet. Data Completed and Pending Labs on day of discharge: Labs from last 24 hours 02/09/25 06:25 WBC 4.44 RBC 4.38 Hgb 11.8 Hct 37.0 MCV 85 MCH 26.9 L MCHC 31.9 L RDW 15.2 H Plt Count 154 MPV 9.8 Immature Gran % 0.5 Neutrophils % 43.7 Lymphocytes % 36.7 Monocytes % 11.0 Eosinophils % 7.9 Basophils % 0.2 Nucleated RBC % 0.0 Absolute Neutrophils 1.94 Absolute Lymphocytes 1.63 Absolute Monocytes 0.49 Absolute Eosinophils 0.35 Absolute Basophils 0.01 Sodium 142 Potassium 4.0 Chloride 107 Carbon Dioxide 31.1 Anion Gap 3.9 BUN 17 Creatinine 0.7 Est GFR (CKD-EPI 2020) 114.88 Glucose 96 Calcium 8.6 Magnesium 2.2 Total Bilirubin 0.2 AST 16 ALT 15 Alkaline Phosphatase 49 C-Reactive Protein 6.39 H Total Protein 6.4 Albumin 2.7 L Preliminary micro results at discharge 02/07/25 14:05 Blood Blood Culture - Preliminary NO GROWTH 24 HOURS 02/07/25 13:31 Blood Blood Culture - Preliminary NO GROWTH 24 HOURS PFSH All Active Problems (Updated 08/11/24 @ 00:03 by JAYDE COPELAND) Tobacco dependence (Acute) Opioid use disorder, severe, dependence (Acute) Spasm of muscle of lower back (Acute) Sepsis due to cellulitis (Acute) IVDU (intravenous drug user) (Acute) Cellulitis (Acute) Back pain (Acute) Influenza A (Acute) Polysubstance abuse (Acute) Dehydration (Acute) Cellulitis of left arm (Acute) Previous delivery, delivered (Acute) Medical History Drug abuse Heroin abuse Asthma Migraine Surgical History section (04/01/10) failed induction for post dates. No dilation. Velamentouse cord insertion noted on path report. No distress. Male infant named Alli 7lb 14oz. Family History Father Essential hypertension Diabetes [id number] Ivon's chorea Social History Smoking/Tobacco Use Status: Current every day Tobacco Type: cigarettes Years smoked: 15 Smoking risk assessment performed?: Yes Alcohol Intake: never Drug use: Daily Substance use type: heroin, painkillers and IV drugs Details: Hx of drug abuse, currently been w/ [facility] x3mos ago 08/07/2024. State she randomly does fentanyl last time was saturday 3 days ago Housing: other Do you feel safe at home: Yes Do you feel safe in your relationship?: Yes Time Spent with Patient Time Spent with Patient: 45-69 minutes Time was spent: preparing to see the patient(eg.review tests), ordering medications,tests, procedures, referring, communicating with other health wound care nurse, indepentently interpreting results, counseling the patient and care coordination
--- NOTE | 2025-02-09 09:58 | PDOC.CMDIS ---
Date of service: 02/09/25 Time of Service: 09:58 LACE Index Scoring Tool Questions: Length of Stay (in days): 2 Was the patient admitted via the E.D.?: Yes E.D. Visits: 2 Answers: Total Score: 7 Risk of Readmission: Low Risk Care Management Discharge Plan Reason for Hospitalization: Lumbar Pain Discharge Plan: Pura will be discharged home today with no new services indicated. MRI was completed. It is recommended that Pura will follow up with her primary care providers and continue per her plan of care. Pura will transport via private vehicle by her family. Patient/Family Education Needs: Review of discharge instruction, activity, limitations, and plan of care. Discuss ask me three.
== END 2025-02-09 10:30 | disposition home or self-care (01) ==
LOC: ER 16:21 → MS 19:51
PROVIDERS: Nurse Practitioner Family; Admitting Provider Family Medicine; Emergency Provider General Practice; PCP Family Medicine; Responsible Provider Nurse Practitioner Family; Visit Provider Family Medicine
DX: M62.830 Muscle spasm of back (principal); E87.6 Hypokalemia; F11.20 Opioid dependence, uncomplicated; F17.210 Nicotine dependence, cigarettes, uncomplicated; F90.9 Attention-deficit hyperactivity disorder, unspecified type; D69.6 Thrombocytopenia, unspecified; R00.0 Tachycardia, unspecified; M51.362 Other intervertebral disc degeneration, lumbar region with discogenic back pain and lower extremity pain; M48.061 Spinal stenosis, lumbar region without neurogenic claudication; W18.40XA Slipping, tripping and stumbling without falling, unspecified, initial encounter; Y93.01 Activity, walking, marching and hiking
CPT/HCPCS: 00123; 36415; 72158; 80053; 85652; 87040; 96372; 99285; J1650; 72126; 72129; 72132; 72156; 72157; 83735; 84703; 85025; 85610; 86140; 99222; 99231; 99239; G0378; J1885; J3490